=== PATIENT | male | born 1935 | race Caucasian/White ===

== ENCOUNTER → 2016-12-06 | Outpatient (CLI) | payer MEDICARE, BC ==
[2016-12-06 21:38] LABS: Hemoglobin A1C 7.1 % (4.2-6.1)
== END | disposition home or self-care (01) ==
LOC: MMGSC 12:18
PROVIDERS: ATTEND Family Medicine
DX: E11.9 Type 2 diabetes mellitus without complications (principal)
CPT/HCPCS: 36415; 83036

== ENCOUNTER → 2017-03-07 | Outpatient (CLI) | payer MEDICARE, BC ==
[2017-03-07 18:44] LABS: Basophils # (A) 0.1 k/uL (0-0.2); Basophils % (A) 1 %; CH 29.4; CHCM 31.7; Eosinophils # (A) 0.2 k/uL (0-0.7); Eosinophils % (A) 2 %; HDW 2.56; Hypochromasia Slight; Luc # (Auto) 0.18; Luc % (Auto) 2; Lymphocytes # (A) 2.1 k/uL (1.0-4.8); Lymphocytes % (A) 19 %; MCH 29.5 pg (25.0-35.0); MCHC 31.6 g/dL (31.0-37.0); MCV 93.3 fL (80.0-100.0); Mean Platelet Volume 7.3; Monocytes # (A) 0.6 k/uL (0-1.0); Monocytes % (A) 6 %; Neutrophils # (A) 7.8 k/uL (1.3-7.7); Neutrophils % (A) 71 %; RDW 13.4 % (11.5-15.5); WBC (Perox) 10.01
[2017-03-07 19:00] LABS: ALT 27 U/L (21-72); AST 19 U/L (17-59); Alkaline Phosphatase 103 U/L (38-126); Anion Gap 12 mmol/L; Blood Urea Nitrogen 23 mg/dL (9-20); Calcium 9.5 mg/dL (8.4-10.2); Carbon Dioxide 25 mmol/L (22-30); Chloride 103 mmol/L (98-107); Cholesterol 115 mg/dL (<200); Glucose 128 mg/dL (74-99); HDL Cholesterol 42 mg/dL (40-60); Non-African American GFR(MDRD) 53 (>60 ml/min/1.73 sqM); Potassium 5.2 mmol/L (3.5-5.1); Sodium 140 mmol/L (137-145); Total Bilirubin 0.5 mg/dL (0.2-1.3); Total Protein 7.2 g/dL (6.3-8.2); Triglycerides 57 mg/dL (<150)
[2017-03-07 20:47] LABS: Hemoglobin A1C 6.7 % (4.2-6.1)
== END | disposition home or self-care (01) ==
LOC: MMGSC 10:47
PROVIDERS: ATTEND Family Medicine
DX: E11.9 Type 2 diabetes mellitus without complications (principal); I10 Essential (primary) hypertension; E78.5 Hyperlipidemia, unspecified; N40.0 Benign prostatic hyperplasia without lower urinary tract symptoms; N52.9 Male erectile dysfunction, unspecified
CPT/HCPCS: 84439; 80061; 80053; 83036; 84443; 85025; 82043; 36415; G0103

== ENCOUNTER → 2017-04-08 | Outpatient (CLI) | payer MEDICARE, BC ==
[2017-04-08 20:44] LABS: Basophils # (A) 0.1 k/uL (0-0.2); Basophils % (A) 0 %; CH 29.9; CHCM 31.2; Eosinophils # (A) 0.1 k/uL (0-0.7); Eosinophils % (A) 1 %; HCT 40.4 % (39.0-53.0); HGB 12.5 gm/dL (13.0-17.5); Hypochromasia Slight; Luc # (Auto) 0.13; Luc % (Auto) 1; Lymphocytes # (A) 1.9 k/uL (1.0-4.8); Lymphocytes % (A) 15 %; MCH 29.7 pg (25.0-35.0); MCHC 30.9 g/dL (31.0-37.0); MCV 96.1 fL (80.0-100.0); Mean Platelet Volume 7.7; Monocytes # (A) 0.7 k/uL (0-1.0); Monocytes % (A) 6 %; Neutrophils # (A) 9.7 k/uL (1.3-7.7); Neutrophils % (A) 77 %; RBC 4.21 m/uL (4.30-5.90); RDW 13.7 % (11.5-15.5); WBC 12.6 k/uL (3.8-10.6); WBC (Perox) 12.96
== END ==
LOC: MMGSC 11:27
PROVIDERS: ATTEND Family Medicine
DX: D72.829 Elevated white blood cell count, unspecified (principal)
CPT/HCPCS: 36415; 85025

== ENCOUNTER → 2017-04-15 | Outpatient (CLI) | payer MEDICARE, BC | LOC: MMGSC 11:16 | PROVIDERS: ATTEND Family Medicine | DX: R31.9 Hematuria, unspecified (principal) | CPT/HCPCS: 87086 ==

== ENCOUNTER 2017-04-17 11:37 | Inpatient (IN) | payer MEDICARE, BC ==
[2017-04-17] MEDS ORDERED: NITROGLYCERIN SL TABS 0.4 MG TAB SUBLINGUAL PRN ×3 (11:59→21:16)
--- NOTE | 2017-04-17 12:02 | ED ---
Chest Pain HPI - General Chief Complaint: Chest Pain Stated Complaint: CHEST PAIN Time Seen by Provider: 04/17/17 11:50 Source: patient, family, RN notes reviewed Mode of arrival: ambulatory Limitations: no limitations - History of Present Illness Initial Comments: This is a 81-year-old male presents with complaints of chest discomfort today. Discomfort radiating down his arms up into his neck across his chest. Associated shortness of breath. Heaviness on and off for the past couple months. He currently states his pain is 8/10 in severity sharp and her team in nature. He was seen at [facility] 2 weeks ago for similar pain he was not admitted at that time. He does have a history of prior TIA abdominal aortic aneurysm he denies any prior history of heart attack/heart disease. He denies any cough fevers chills or sweats he is a very anxious person he did take Xanax this morning. MD Complaint: chest pain - Related Data Home Medications Medication Instructions Recorded Confirmed ALPRAZolam [Xanax] 0.25 mg PO BID PRN 10/30/14 04/17/17 Atorvastatin [Lipitor] 40 mg PO HS 10/30/14 04/17/17 Valsartan [Diovan] 160 mg PO DAILY 10/30/14 04/17/17 amLODIPine [Norvasc] 5 mg PO DAILY 10/30/14 04/17/17 glipiZIDE [Glucotrol] 5 mg PO DAILY 10/30/14 04/17/17 metFORMIN HCL 1,000 mg PO BID 10/30/14 04/17/17 Acetaminophen Tab [Tylenol] 500 mg PO Q6H PRN 04/17/17 04/17/17 Aspirin 325 mg PO DAILY PRN 04/17/17 04/17/17 Cyanocobalamin (Vitamin B-12) 1,000 mcg PO DAILY 04/17/17 04/17/17 [Vitamin B-12] Finasteride [Proscar] 5 mg PO DAILY 04/17/17 04/17/17 Hoda 1 cap PO DAILY 04/17/17 04/17/17 [place]-3 Fatty Acids/Fish Oil [Fish 1 cap PO DAILY 04/17/17 04/17/17 Oil 1,000 mg Capsule] Sulfamethox-Tmp 800-160Mg [Bactrim 1 tab PO Q12HR 04/17/17 04/17/17 DS 800-160 mg] Previous Rx's Medication Instructions Recorded Clopidogrel [Plavix] 75 mg PO DAILY #30 tablet 10/31/14 Allergies Allergy/AdvReac Type Severity Reaction Status Date / Time No Known Allergies Allergy Verified 04/17/17 12:18 Review of Systems ROS Statement: Those systems with pertinent positive or pertinent negative responses have been documented in the HPI. ROS Other: All systems not noted in ROS Statement are negative. EKG Findings - EKG Results: EKG: interpreted by ESTEFANIA, sinus rhythm (Sinus rhythm a rate of 76 W[place] interval 158 QRS duration 82 QT/QTC of 390/[address]-T wave configuration) Past Medical History Past Medical History: Coronary Artery Disease (CAD) Additional Past Medical History / Comment(s): AAA measuring 4.7 cm being followed by Dr. Mccarthy. Pt has been told to increase his water intake d/t blood work showing elevated renal levels. Pt. has diverticulitis and colon polyps History of Any Multi-Drug Resistant Organisms: None Reported Past Surgical History: Tonsillectomy Additional Past Surgical History / Comment(s): colonoscopy with polypectomy. Past Anesthesia/Blood Transfusion Reactions: No Reported Reaction Additional Past Anesthesia/Blood Transfusion Reaction / Comment(s): Pt has never recieved blood. Past Psychological History: Anxiety Smoking Status: Former smoker Past Alcohol Use History: None Reported Past Drug Use History: None Reported - Past Family History Father Family Medical History: Coronary Artery Disease (CAD), Diabetes Mellitus Additional Family Medical History / Comment(s): Father had caratid artery occlusion and had a procedure to remove. Father was an alcoholic. He of a ME at 76-77yrs. Mother Family Medical History: Deep Vein Thrombosis (DVT) Additional Family Medical History / Comment(s): Mother at 42 yrs of age of "blood clot" in the lung and it went to the heart. General Exam - General Exam Comments Initial Comments: This is a well-developed well-nourished awake alert anxious appearing male Limitations: no limitations General appearance: alert, anxious Head exam: Present: atraumatic, normocephalic, normal inspection Eye exam: Present: normal appearance, PERRL, EOMI. Absent: scleral icterus, conjunctival injection, periorbital swelling ENT exam: Present: normal exam, mucous membranes moist Neck exam: Present: normal inspection. Absent: tenderness, meningismus, lymphadenopathy Respiratory exam: Present: normal lung sounds bilaterally. Absent: respiratory distress, wheezes, rales, rhonchi, stridor Cardiovascular Exam: Present: regular rate, normal rhythm, normal heart sounds. Absent: systolic murmur, diastolic murmur, rubs, gallop, clicks GI/Abdominal exam: Present: soft, normal bowel sounds. Absent: distended, tenderness, guarding, rebound, rigid Extremities exam: Present: normal inspection, full ROM, normal capillary refill. Absent: tenderness, pedal edema, joint swelling, calf tenderness Back exam: Present: normal inspection Neurological exam: Present: alert, oriented X3, CN II-XII intact Psychiatric exam: Present: normal affect, normal mood Skin exam: Present: warm, dry, intact, normal color. Absent: rash Course Vital Signs 04/17/17 04/17/17 04/17/17 11:39 12:09 12:15 Temperature 98.2 F Pulse Rate 82 77 72 Respiratory 20 20 20 Rate Blood Pressure 136/81 156/81 154/75 O2 Sat by Pulse 98 99 99 Oximetry 04/17/17 13:14 Temperature Pulse Rate 79 Respiratory 18 Rate Blood Pressure 118/72 O2 Sat by Pulse 95 Oximetry - Reevaluation(s) Reevaluation #1: 04/17/17 14:22 Reevaluation patient reveals he does feel improved. Chest Pain MDM - MDM Review the x-ray shows no acute findings. I did discuss the findings with the patient and family members as well as Dr. Jonas who did come to see the patient emergency department. He will be admitted for evaluation of non-ST elevation ME with elevated troponin he'll does demonstrate renal insufficiency and hypomagnesemia. Critical Care Time Critical Care Time: Yes Critical Care Time: 32 minutes of critical care time which includes initial monitoring of the patient with history physical labs and x-rays reevaluation the patient's replication. Discussed with the patient family members discussion with the admitting physician admit orders and documentation of the above Disposition Clinical Impression: Non-ST elevation myocardial infarction (NSTEMI), Hypomagnesemia syndrome, Renal insufficiency syndrome, Chest pain Disposition: ADMITTED IP TO THIS [facility] Condition: Stable Referrals: Debora Torres MD [Primary Care Provider] - 1-2 days
[2017-04-17 12:25] LABS: Basophils % (A) 0 %; CHCM 32.9; Eosinophils % (A) 0 %; HDW 2.45; HGB 13.4 gm/dL (13.0-17.5); Luc # (Auto) 0.18; Luc % (Auto) 1; Lymphocytes # (A) 0.8 k/uL (1.0-4.8); Lymphocytes % (A) 5 %; MCH 31.5 pg (25.0-35.0); MCHC 34.4 g/dL (31.0-37.0); MCV 91.5 fL (80.0-100.0); Mean Platelet Volume 6.6; Monocytes # (A) 0.7 k/uL (0-1.0); Monocytes % (A) 4 %; Neutrophils # (A) 14.5 k/uL (1.3-7.7); Neutrophils % (A) 89 %; RBC 4.26 m/uL (4.30-5.90); RDW 13.4 % (11.5-15.5); WBC 16.3 k/uL (3.8-10.6); WBC (Perox) 15.94
[2017-04-17 12:35] LABS: Calcium 9.9 mg/dL (8.4-10.2); Magnesium 1.4 mg/dL (1.6-2.3); Total Bilirubin 0.7 mg/dL (0.2-1.3); Total Protein 7.3 g/dL (6.3-8.2)
--- NOTE | 2017-04-17 12:47 | XR ---
EXAMINATION TYPE: XR chest 2V DATE OF EXAM: 04/17/2017 COMPARISON: NONE HISTORY: Chest pain TECHNIQUE: Frontal and lateral views of the chest are obtained. FINDINGS: There is no focal air space opacity, pleural effusion, or pneumothorax seen. The cardiac silhouette size is within normal limits. There are overlying cardiac leads. The osseous structures a re intact. IMPRESSION: No acute cardiopulmonary process.
[2017-04-17 12:57] LABS: Partial Thromboplastin Time 23.9 sec (22.0-30.0); Prothrombin Time 10.3 sec (9.0-12.0)
[2017-04-17 13:15] LABS: Troponin I 0.443 ng/mL (0.000-0.034)
[2017-04-17 13:53] LABS: Glucose,Whole Blood 149 mg/dL (75-99)
[2017-04-17] MEDS ORDERED: HEPARIN SODIUM,PORCINE 5,000 UNIT/ML 1 ML VIAL IV ONE (14:24)
[2017-04-17] MEDS ORDERED: ACETAMINOPHEN TAB 500 MG TAB PO PRN (14:27)
[2017-04-17] MEDS ORDERED: HEPARIN SODIUM,PORCINE/D5W PMX 25,000 UNIT in DEXTROSE/WATER 1 500ML.BAG IV SCH (14:30)
[2017-04-17] MEDS: SODIUM CHLORIDE 0.9% 1,000 ML IV SCH ×2 (15:39→23:37)
[2017-04-17] MEDS: INSULIN LISPRO (humaLOG) 300 UNIT/3 ML VIAL SQ SCH ×2 (17:15→22:02)
[2017-04-17 17:16] LABS: Glucose,Whole Blood 188 mg/dL (75-99)
[2017-04-17 17:29] VITALS: BMI 25.0
[2017-04-17] MEDS ORDERED: metFORMIN 500 MG TAB PO SCH (17:30)
[2017-04-17] MEDS ORDERED: NITROGLYCERIN OINT 1 INCH/GM PACKET TOPICAL SCH (18:00)
[2017-04-17 18:27] LABS: Creatine Kinase MB 45.4 ng/mL (0.0-2.4)
[2017-04-17] MEDS ORDERED: SODIUM CHLORIDE 0.9% 250 ML IV ONE (19:52)
[2017-04-17] MEDS ORDERED: IV FLUID CONTINUATION 150 ML IV ONE (20:10)
[2017-04-17] MEDS ORDERED: LIDOCAINE 2% INJ 20 MG/ML (20 ML MDV) ONE (20:22)
[2017-04-17] MEDS ORDERED: MIDAZOLAM 2 MG/2 ML VIAL ONE (20:24)
[2017-04-17] MEDS ORDERED: MIDAZOLAM 2 MG/2 ML VIAL IV ONE (20:25)
[2017-04-17] MEDS ORDERED: LIDOCAINE 2% INJ 20 MG/ML SQ ONE (20:27)
[2017-04-17] MEDS ORDERED: BIVALIRUDIN 250 MG in SODIUM CHLORIDE 0.9% 50 ML IV ONE (20:40)
[2017-04-17] MEDS ORDERED: BIVALIRUDIN BOLUS 250 MG/50 ML IV ONE (20:40)
[2017-04-17] MEDS ORDERED: diphenhydrAMINE 50 MG/ML 1 ML VIAL ONE (20:42)
[2017-04-17] MEDS ORDERED: diphenhydrAMINE 50 MG/ML 1 ML VIAL IVP ONE (20:44)
[2017-04-17] MEDS ORDERED: ATORVASTATIN 40 MG TAB PO SCH (21:00)
[2017-04-17] MEDS ORDERED: NITROGLYCERIN 1000MCG/10ML SYRINGE INTRACORON ONE (21:04)
[2017-04-17] MEDS ORDERED: IODIXANOL 320 MG/ML 100 ML INTRAARTER ONE (21:08)
[2017-04-17] MEDS ORDERED: CLOPIDOGREL 75 MG TAB ONE (21:11)
[2017-04-17] MEDS ORDERED: ATROPINE SULFATE 0.1 MG/ML 10ML SYRINGE IV PRN (21:16)
[2017-04-17] MEDS ORDERED: MAG HYDROX/AL HYDROX/SIMETH 30 ML CUP PO PRN (21:16)
[2017-04-17] MEDS ORDERED: ZOLPIDEM 5 MG TAB PO PRN (21:16)
[2017-04-17] MEDS ORDERED: RX INFO: IV CONTRAST WAS GIVEN 1 EACH MISC MISCELLANE PRN (21:16)
[2017-04-17] MEDS ORDERED: CLOPIDOGREL 75 MG TAB PO ONE (21:17)
--- NOTE | 2017-04-17 21:20 | CC ---
DATE OF SERVICE: INDICATION: Non-ST segment elevation CO. PROCEDURE NOTE: After obtaining informed consent, left heart catheterization and coronary angiogram are performed via the right femoral artery using standard Mirian catheters. Conscious sedation was obtained. Total sedation time was 15 minutes. Patient has chronic renal insufficiency with a creatinine of 1.7. The patient received a bolus of 250 mL of 0.9 normal saline and we will continue to hydrate him. The patient came to hospital through this afternoon with chest pain and ruled in for myocardial infarction. His troponin came back elevated at around 24. The patient continued to have episodes of chest pressure with bilateral arm pain. Due to his chest discomfort elevated troponins, I advised the patient to undergo cardiac catheterization. He was explained of the risk of contrast-induced nephropathy, understood and accepted. FINDINGS: HEMODYNAMICS: Ventricular end-diastolic pressure was 8 to 12 mm. There is no significant gradient across this valve. LEFT VENTRICULOGRAM: Left ventriculogram was not performed. ANGIOGRAPHIC DATA: LEFT MAIN CORONARY ARTERY: Left main coronary is a normal sized vessel and is free of stenosis. Divides into left anterior descending coronary artery and circumflex coronary artery. LEFT ANTERIOR DESCENDING CORONARY ARTERY: LAD and its branches are free of significant stenosis. CIRCUMFLEX CORONARY ARTERY: Circumflex coronary artery is a nondominant vessel and gives off a large-caliber OM branch that has focal 95% stenosis with a filling defect. RIGHT CORONARY ARTERY: Right coronary artery is a large dominant vessel and is free of significant stenosis. There is a mild atherosclerotic plaque in the distal RCA just as it bifurcates into PDA and PLV. CONCLUSION: 95% stenosis involving the first OM branch. PLAN: Patient will undergo angioplasty of circumflex coronary artery by Dr. Temo Marie, the on-call cleaner furniture.
--- NOTE | 2017-04-17 21:23 | CONS ---
DATE OF CONSULTATION: 04/17/2017 CHIEF COMPLAINT: Chest pain Jasmina is a 81-year-old gentleman with history of hypertension, diabetes, and dyslipidemia who has had a cerebrovascular accident 2 years ago, comes to hospital complaining of precordial chest pain. He describes it as a chest pressure, moderate intensity at rest that radiated to left arm. It was not associated with diaphoresis and it was not related to exertion. He came in and got admitted. EKG did not reveal acute ischemic changes. Cardiac enzymes came back elevated following which I was called to see the patient. Patient continued to have on and off episodes of precordial chest pressure with left arm discomfort. Patient was at [facility] 2 weeks ago, but left AGAINST MEDICAL ADVICE. Past medical history is significant for diabetes, dyslipidemia, cerebrovascular accident. Medications are as charted. FAMILY HISTORY: Significant for coronary artery disease and valvular heart disease in his brother. SOCIAL HISTORY: Negative for current smoking, ETOH abuse, or drug abuse. REVIEW OF SYSTEMS: HEENT: Unremarkable. CARDIAC: As described above. RESPIRATORY: Negative. GI: Negative. GENITOURINARY: Negative. Allergy/immunology: Negative. SKIN: Negative. MUSCULOSKELETAL: Negative. Dermatology: Negative. CONSTITUTIONAL: Negative. Oncological: Negative. The rest of the system review is not relevant. On exam, comfortable at rest. Vital signs are stable. There is no jugular venous distention. Carotid upstroke is normal. There is no bruit. Chest exam reveals good air entry bilaterally. Heart exam reveals first and second heart sounds. No gallop. ABDOMEN: Soft. Exam of the extremities did not reveal any edema. Peripheral pulses are palpable. Labs have been reviewed. Hemoglobin is 15.4. Creatinine is 1.7. Potassium is 5, troponin was 0.4 on presentation, it went up to 23. Chest x-ray has been reviewed and EKGs have been reviewed. I reviewed the records from [facility]. ASSESSMENT: 1. Acute non- ST segment elevation myocardial infarction. 2. Chronic renal insufficiency. PLAN: Patient will undergo emergent cardiac catheterization with a view to performing angioplasty. The patient understands the risk of contrast-induced nephropathy. We will use at little dye as we can and hydrate him and cautiously.
[2017-04-17] MEDS ORDERED: SODIUM CHLORIDE 0.9% 1,000 ML IV ONE (21:29)
[2017-04-17] MEDS ORDERED: HYDROmorphone 2 MG/ML 1 ML SYRINGE IV ONE (21:30)
[2017-04-17] MEDS ORDERED: HYDROmorphone 2 MG/ML 1 ML SYRINGE ONE (21:30)
[2017-04-17 21:56] LABS: Glucose,Whole Blood 137 mg/dL (75-99)
[2017-04-17] MEDS: MAGNESIUM SULFATE-D5W PMX 1 GM in DEXTROSE/WATER 1 100ML.BAG IVPB SCH ×2 (22:08→23:37)
[2017-04-17] MEDS: SULFAMETHOX-TMP 800-160MG 1 EACH TAB PO SCH (22:08)
[2017-04-18 00:27] LABS: Creatine Kinase MB 62.2 ng/mL (0.0-2.4); Troponin I 70.9 ng/mL (0.000-0.034)
[2017-04-18 05:53] LABS: Basophils % (A) 0 %; CH 29.5; CHCM 31.8; Eosinophils # (A) 0.1 k/uL (0-0.7); Eosinophils % (A) 1 %; HGB 11.4 gm/dL (13.0-17.5); Luc # (Auto) 0.27; Luc % (Auto) 3; Lymphocytes # (A) 1.5 k/uL (1.0-4.8); Lymphocytes % (A) 14 %; MCH 31.3 pg (25.0-35.0); MCHC 33.6 g/dL (31.0-37.0); MCV 93.1 fL (80.0-100.0); Mean Platelet Volume 6.7; Monocytes # (A) 0.6 k/uL (0-1.0); Monocytes % (A) 5 %; Neutrophils # (A) 8.3 k/uL (1.3-7.7); Neutrophils % (A) 77 %; RBC 3.65 m/uL (4.30-5.90); RDW 13.3 % (11.5-15.5); WBC 10.7 k/uL (3.8-10.6)
[2017-04-18 06:08] LABS: Calcium 9.1 mg/dL (8.4-10.2); Magnesium 1.9 mg/dL (1.6-2.3); Potassium 4.7 mmol/L (3.5-5.1)
[2017-04-18 06:18] LABS: Glucose,Whole Blood 147 mg/dL (75-99)
[2017-04-18] MEDS: INSULIN LISPRO (humaLOG) 300 UNIT/3 ML VIAL SQ SCH ×4 (06:58→20:41)
[2017-04-18] MEDS: glipiZIDE 5 MG TAB PO SCH (08:26)
[2017-04-18] MEDS: METOPROLOL TARTRATE 25 MG TAB PO SCH ×2 (08:26→20:42)
[2017-04-18] MEDS: FINASTERIDE 5 MG TAB PO SCH ×2 (08:26→12:18)
[2017-04-18] MEDS: ASPIRIN 81 MG CHEW PO SCH (08:27)
[2017-04-18] MEDS: CLOPIDOGREL 75 MG TAB PO SCH (08:27)
[2017-04-18] MEDS: SULFAMETHOX-TMP 800-160MG 1 EACH TAB PO SCH ×2 (08:27→20:43)
[2017-04-18] MEDS: ALPRAZolam 0.25 MG TAB PO PRN (08:33)
[2017-04-18] MEDS ORDERED: ASPIRIN 325 MG TAB PO SCH (09:00)
[2017-04-18] MEDS ORDERED: amLODIPine 5 MG TAB PO SCH (09:00)
[2017-04-18] MEDS ORDERED: NON-FORMULARY DRUG (Omega-3 Fatty Acids/Fish Oil [Fish Oil 1,000 Mg Capsule] 1 CAP) PO SCH (09:00)
--- NOTE | 2017-04-18 11:30 | PTCA ---
DATE OF SERVICE: 04/17/2017 PROCEDURE: PTCA and stenting of proximal first obtuse marginal branch of circumflex. PERFORMED BY: Dr. Temo Marie. CLINICAL INFORMATION: Mr. Jasmina Butler is a 81-year-old gentleman with history of hypertension, hypercholesterolemia, type 2 diabetes with chronic kidney disease. His creatinine runs in the range of 1.75. He came into the hospital with symptoms of chest discomfort and went on to have a troponin elevation with ongoing nondescript chest tightness and pressure. He was seen and evaluated by Dr. Flores who performed cardiac catheterization which revealed a 95% proximal first circumflex marginal coronary artery. This was a nondominant circumflex. He has a large RCA, which was free of significant disease and the LAD system also did not have significant disease. He was advised intervention that was performed in the same setting. PROCEDURE NOTE: The existing 6 Russian introducer in the right femoral artery was used to perform the procedure. A JL4 guide catheter of 6 Russian caliber was used to cannulate the left coronary artery. A BMW wire with a steep curve was used to negotiate a very acute angle of takeoff of the obtuse marginal. The wire was kept distally. Predilatation was performed using a 3.0 caliber, 12 mm long Trek balloon. I then deployed a 3.0 caliber, 12 mm long Xience drug-eluting stent and deployed this at 12 atmospheres. Patient had an excellent angiographic result without evident complication. Proximal to the site of dilatation, there was a diffuse disease of about 40% starting from the ostium of the circumflex marginal. Beyond the occlusion, the circumflex marginal divided into 2 branches. The superior was a large-caliber, inferior was a smaller caliber, but both branches had very good flow. An excellent angiographic result without complication was achieved. Patient received 225 mg of Plavix and he was already on Plavix for a history of previous TIA or stroke but he missed a dose or so in the last day. The patient received Angiomax bolus and infusion as per protocol. The sheath was then taken out and Angio-Seal device used to secure hemostasis and he was sent to the room in stable condition. The patient received conscious sedation with a combination of Versed and Benadryl for a total duration of 30 minutes. Results were discussed with the patient's by telephone. Excellent angiographic result was achieved and a copy of this note will go to the PCP.
[2017-04-18 11:35] LABS: Hemoglobin A1C 6.4 % (4.2-6.1)
--- NOTE | 2017-04-18 11:35 | LTR ---
April 17, 2017 RIDGE FREIRE MD RE: Jasmina Butler Maria Alejandra Dear Dr. Garza: Thank you for the opportunity to participate in the care of Mr. Butler. I am pleased to report to you that he had an excellent angiographic result. He presented with chest pain, had a non-ST elevation VT. Excellent angiographic result was achieved with stenting of proximal first circumflex marginal branch. A drug-eluting stent was deployed. He should be on aspirin and Plavix without interruption for a total duration of one year. Thank you for your referral and please call for questions. With kindest regards. Sincerely yours, ANI MOSLEY MD
[2017-04-18 12:02] LABS: Glucose,Whole Blood 135 mg/dL (75-99)
[2017-04-18] MEDS: SODIUM CHLORIDE 0.9% 1,000 ML IV SCH (12:11)
[2017-04-18] MEDS: VALSARTAN 160 MG TAB PO SCH (12:12)
[2017-04-18] MEDS: CYANOCOBALAMIN 500 MCG TAB PO SCH (12:13)
[2017-04-18] MEDS ORDERED: SENNOSIDES 8.6 MG TAB PO PRN (12:36)
[2017-04-18] MEDS ORDERED: MAGNESIUM HYDROXIDE 2,400 MG/10 ML CUP PO PRN (12:36)
--- NOTE | 2017-04-18 14:04 | P.HPIM ---
History of Present Illness H&P Date: 04/17/17 Chief Complaint: NSTEMI This is a 81-year-old male one of Dr. Garza with a previous medical history significant for hypertension and hypertensive cardiovascular disease with left ventricular hypertrophy, diabetes mellitus type 2, a large prostate, patient developed to have significant chest pain associated with exertion with what appears to be an effort angina about 4-6 weeks prior to the admission and he has been getting on and off more chest pain. Patient stated that he was in his usual state of health about yesterday when he was working outside and developed to have a significant left-sided chest pain radiating to the neck associated with tightness in his neck with left arm numbness as well he ended up coming to the ER for evaluation had an EKG that showed nonspecific ST-T wave changes, patient was started on heparin drip as well as an aspirin and he was admitted to the hospital cardiology consultation was obtained, patient initial laboratory evaluation showed negative troponin however the second troponin came back quite elevated he was rotated non-ST elevation [place] patient was seen by Dr. Guzman and he was taken to the bobcat driver/labor underwent left heart catheterization that showed 95% stenosis of the obtuse marginal branch of the LCx, he underwent stenting of the artery by Dr. Marie and he was admitted to the hospital, he is be maintained on aspirin 81 mg once every day, Plavix 75 minute gram orally once every day, Lipitor 80 mg orally once every day. Review of Systems Constitutional: Denies chills, Denies chronic pain, Denies fever, Denies malaise , Denies weight gain, Denies weight loss Eyes: denies blurred vision, denies bulging eye, denies decreased vision, denies diplopia Ears, nose, mouth and throat: Denies dysphagia, Denies epistaxis, Denies neck lump, Denies sore throat Cardiovascular: Reports chest pain, Reports decreased exercise tolerance, Reports dyspnea on exertion, Reports high blood pressure, Reports shortness of breath, Denies rapid heart beat, Denies syncope Respiratory: Denies congestion, Denies cough, Denies cough with sputum, Denies home oxygen, Denies sleep apnea, Denies snoring, Denies wheezing Gastrointestinal: Denies abdominal pain, Denies bloating, Denies change in bowel habits, Denies heartburn, Denies melena, Denies nausea, Denies vomiting Genitourinary: Reports nocturia, Denies dysuria Musculoskeletal: Denies myalgias Musculoskeletal: absent: ankle pain, ankle stiffness, ankle swelling, elbow pain , elbow stiffness, elbow swelling, foot pain, foot stiffness, foot swelling, hand pain, hand stiffness, hand swelling, hip pain, hip stiffness, hip swelling , knee pain, knee stiffness, knee swelling, shoulder pain, shoulder stiffness, shoulder swelling, wrist pain, wrist stiffness, wrist swelling Integumentary: Denies pruritus, Denies rash Neurological: Denies numbness, Denies weakness Psychiatric: Denies anxiety, Denies depression Endocrine: Denies fatigue, Denies weight change Past Medical History Past Medical History: Coronary Artery Disease (CAD), Diabetes Mellitus, GERD/ Reflux, Hyperlipidemia, Hypertension, Musculoskeletal Disorder, Osteoarthritis ( OA), Prostate Disorder, Vascular Disorder Additional Past Medical History / Comment(s): AAA followed by Dr. Mccarthy. Pt. has diverticulitis and colon polyps History of Any Multi-Drug Resistant Organisms: None Reported Past Surgical History: Adenoidectomy, Tonsillectomy Additional Past Surgical History / Comment(s): colonoscopy with polypectomy, basal cell cancer removed from the shoulder. Past Anesthesia/Blood Transfusion Reactions: No Reported Reaction Additional Past Anesthesia/Blood Transfusion Reaction / Comment(s): Pt has never recieved blood. Past Psychological History: Anxiety Additional Psychological History / Comment(s): Pt lives in his home with his spouse of 60 yrs. Pt is independent. Pt drives a car. Smoking Status: Former smoker (Patient is a smoker about pack every day he smoked until 1986 when he quit, he used to drink about 12 beers on a daily basis and he has not had any beers since and 9 however he does martini once every day. About 3 ounces of alcohol.) Past Alcohol Use History: None Reported Past Drug Use History: None Reported - Past Family History Father Family Medical History: Coronary Artery Disease (CAD) (Father at age 79 from SD he also was alcoholic and he had history of diabetes), Diabetes Mellitus Additional Family Medical History / Comment(s): Father had carotid artery occlusion and had a procedure to remove. Father was an alcoholic. He of a SD at 76-77yrs. Mother Family Medical History: Deep Vein Thrombosis (DVT), Pulmonary Embolus (Mother at age 42 from pulmonary embolism and cor pulmonale.) Additional Family Medical History / Comment(s): Mother at 42 yrs of age of "blood clot" in the lung and it went to the heart. Brother(s) Family Medical History: No Reported History (Patient has one brother who had AVR.) Sister(s) Family Medical History: No Reported History (Patient has one sister major medical problems.) Son(s) Family Medical History: No Reported History (He shouldn't has 3 sons no major medical problems.) Medications and Allergies Home Medications Medication Instructions Recorded Confirmed Type ALPRAZolam [Xanax] 0.25 mg PO BID PRN 10/30/14 04/17/17 History Atorvastatin [Lipitor] 40 mg PO HS 10/30/14 04/17/17 History Valsartan [Diovan] 160 mg PO DAILY 10/30/14 04/17/17 History amLODIPine [Norvasc] 5 mg PO DAILY 10/30/14 04/17/17 History glipiZIDE [Glucotrol] 5 mg PO DAILY 10/30/14 04/17/17 History metFORMIN HCL 1,000 mg PO BID 10/30/14 04/17/17 History Acetaminophen Tab [Tylenol] 500 mg PO Q6H PRN 04/17/17 04/17/17 History Aspirin 325 mg PO DAILY PRN 04/17/17 04/17/17 History Cyanocobalamin (Vitamin B-12) 1,000 mcg PO DAILY 04/17/17 04/17/17 History [Vitamin B-12] Finasteride [Proscar] 5 mg PO DAILY 04/17/17 04/17/17 History Hoda 1 cap PO DAILY 04/17/17 04/17/17 History [place]-3 Fatty Acids/Fish Oil [Fish 1 cap PO DAILY 04/17/17 04/17/17 History Oil 1,000 mg Capsule] Sulfamethox-Tmp 800-160Mg [Bactrim 1 tab PO Q12HR 04/17/17 04/17/17 History DS 800-160 mg] Allergies Allergy/AdvReac Type Severity Reaction Status Date / Time No Known Allergies Allergy Verified 04/17/17 12:18 Physical Exam Vitals: Vital Signs Temp Pulse Pulse Resp BP BP Pulse Ox 04/18/17 08:00 97.6 F 77 20 107/71 95 04/18/17 04:00 97.3 F L 78 16 123/78 97 04/18/17 01:01 75 16 139/84 96 04/18/17 00:01 79 16 141/72 95 04/18/17 00:00 97.3 F L 79 16 141/72 95 04/17/17 23:01 84 16 139/88 96 04/17/17 22:31 97.3 F L 85 16 136/82 96 04/17/17 22:01 97.3 F L 81 16 145/93 95 04/17/17 21:46 97.3 F L 75 16 146/93 97 04/17/17 21:15 97.3 F L 16 157/98 97 04/17/17 20:00 97.3 F L 85 16 157/98 97 04/17/17 15:40 96.7 F L 57 L 18 157/79 97 04/17/17 14:58 97.1 F L 78 18 138/83 97 04/17/17 13:14 79 18 118/72 95 04/17/17 12:15 72 20 154/75 99 04/17/17 12:09 77 20 156/81 99 04/17/17 11:39 98.2 F 82 20 136/81 98 Intake and Output 04/17/17 04/18/17 04/18/17 22:59 06:59 14:59 Intake Total 887.993 700 120 Output Total 1225 1025 Balance -337.007 -325 120 Intake: IV 636.76 700 Heparin Sodium,Porcine/ 36 D5w Pmx 25,000 unit In Dextrose/Water 1 500ml. bag @ 12 UNITS/KG/HR 18.5 mls/hr IV .Q24H [facility] Rx#: [id number] Magnesium Sulfate-D5w Pmx 100 100 1 gm In Dextrose/Water 1 100ml.bag @ 100 mls/hr IVPB Q1H [facility] Rx#: [id number] Sodium Chloride 0.9% 1, 40 000 ml @ 20 mls/hr IV . Q24H [facility] Rx#:[id number] Sodium Chloride 0.9% 1, 75 600 000 ml @ 75 mls/hr IV . [id number] [facility] Rx#:[id number] Sodium Chloride 0.9% 250 250 ml @ 999 mls/hr IV .Q16M [facility] Rx#:[id number] Intake, IV Titration 1.233 Amount Heparin Sodium,Porcine/ 1.233 D5w Pmx 25,000 unit In Dextrose/Water 1 500ml. bag @ 12 UNITS/KG/HR 18.5 mls/hr IV .Q24H [facility] Rx#: [id number] Oral 250 120 Output: Urine 1225 1025 Other: Voiding Method Urinal Urinal # Voids 1 1 Weight 79.2 kg - Constitutional General appearance: no acute distress - EENT Eyes: anicteric sclerae, EOMI, PERRLA, no ptosis, no scleral icterus, normal appearance ENT: hearing grossly normal, NA/AT, normal oropharynx, no thrush Ears: bilateral: normal - Neck Neck: no lymphadenopathy, normal ROM, no rigidity, no stridor, no thyromegaly Carotids: bilateral: upstroke normal Thyroid: bilateral: normal size - Respiratory Respiratory: bilateral: diminished, negative: dullness, rales, rhonchi, wheezing , prolonged expiration, prolonged inspiration - Cardiovascular Rhythm: regular Heart sounds: normal: S1, S2 Abnormal Heart Sounds: systolic murmur, no rub, S3 Gallop, no click - Gastrointestinal General gastrointestinal: normal bowel sounds, soft, no splenomegaly, no tenderness, no umbilical hernia, no ventral hernia - Integumentary Integumentary: normal, normal turgor - Neurologic Neurologic: CNII-XII intact - Musculoskeletal Musculoskeletal: strength equal bilaterally - Psychiatric Psychiatric: A&O x's 3, appropriate affect, intact judgment & insight Results CBC & Chem 7: 04/18/17 05:22 04/18/17 05:22 Labs: Abnormal Lab Results - Last 24 Hours (Table) 04/17/17 04/17/17 04/17/17 Range/Units 11:57 11:57 11:57 WBC 16.3 H (3.8-10.6) k/uL RBC 4.26 L (4.30-5.90) m/uL Hgb (13.0-17.5) gm/dL Hct (39.0-53.0) % Neutrophils # 14.5 H (1.3-7.7) k/uL Lymphocytes # 0.8 L (1.0-4.8) k/uL APTT (22.0-30.0) sec Sodium 135 L (137-145) mmol/L Carbon Dioxide 20 L (22-30) mmol/L BUN 25 H (9-20) mg/dL Creatinine 1.74 H (0.66-1.25) mg/dL Glucose 169 H (74-99) mg/dL POC Glucose (mg/dL) (75-99) mg/dL Magnesium 1.4 L (1.6-2.3) mg/dL Total Creatine Kinase 189 H (55-170) U/L CK-MB (CK-2) 5.0 H* (0.0-2.4) ng/mL Troponin I 0.443 H* (0.000-0.034) ng/mL 04/17/17 04/17/17 04/17/17 Range/Units 13:52 17:04 17:23 WBC (3.8-10.6) k/uL RBC (4.30-5.90) m/uL Hgb (13.0-17.5) gm/dL Hct (39.0-53.0) % Neutrophils # (1.3-7.7) k/uL Lymphocytes # (1.0-4.8) k/uL APTT (22.0-30.0) sec Sodium (137-145) mmol/L Carbon Dioxide (22-30) mmol/L BUN (9-20) mg/dL Creatinine (0.66-1.25) mg/dL Glucose (74-99) mg/dL POC Glucose (mg/dL) 149 H 188 H (75-99) mg/dL Magnesium (1.6-2.3) mg/dL Total Creatine Kinase 740 H (55-170) U/L CK-MB (CK-2) 45.4 H* (0.0-2.4) ng/mL Troponin I 23.000 H* (0.000-0.034) ng/mL 04/17/17 04/17/17 04/17/17 Range/Units 21:54 23:30 23:30 WBC (3.8-10.6) k/uL RBC (4.30-5.90) m/uL Hgb (13.0-17.5) gm/dL Hct (39.0-53.0) % Neutrophils # (1.3-7.7) k/uL Lymphocytes # (1.0-4.8) k/uL APTT 51.6 H (22.0-30.0) sec Sodium (137-145) mmol/L Carbon Dioxide (22-30) mmol/L BUN (9-20) mg/dL Creatinine (0.66-1.25) mg/dL Glucose (74-99) mg/dL POC Glucose (mg/dL) 137 H (75-99) mg/dL Magnesium (1.6-2.3) mg/dL Total Creatine Kinase 887 H (55-170) U/L CK-MB (CK-2) 62.2 H* (0.0-2.4) ng/mL Troponin I 70.900 H* (0.000-0.034) ng/mL 04/18/17 04/18/17 04/18/17 Range/Units 05:22 05:22 06:17 WBC 10.7 H (3.8-10.6) k/uL RBC 3.65 L (4.30-5.90) m/uL Hgb 11.4 L (13.0-17.5) gm/dL Hct 34.0 L (39.0-53.0) % Neutrophils # 8.3 H (1.3-7.7) k/uL Lymphocytes # (1.0-4.8) k/uL APTT (22.0-30.0) sec Sodium 132 L (137-145) mmol/L Carbon Dioxide (22-30) mmol/L BUN (9-20) mg/dL Creatinine 1.40 H (0.66-1.25) mg/dL Glucose 136 H (74-99) mg/dL POC Glucose (mg/dL) 147 H (75-99) mg/dL Magnesium (1.6-2.3) mg/dL Total Creatine Kinase (55-170) U/L CK-MB (CK-2) (0.0-2.4) ng/mL Troponin I (0.000-0.034) ng/mL Thrombosis Risk Factor Assmnt - DVT/VTE Prophylaxis DVT/VTE Prophylaxis: Pharmacologic Prophylaxis ordered, Mechanical Prophylaxis ordered - Choose All That Apply Each Risk Factor Represents 3 Points: Age 75 years or older, Family history of DVT/PE Thrombosis Risk Factor Assessment Total Risk Factor Score: 6 Thrombosis Risk Factor Assessment Level: High Risk Assessment and Plan Plan: Assessment and plan: 1. Non-ST elevation [place] post left heart catheterization and PCI of the OM1 off the LCx. Continue aspirin 81 mg once every day, continue Plavix 75 mg orally once every day, continue Lipitor 80 mg orally once every day, metoprolol 25 mg orally twice every day, echogram will be obtained, increase activity, monitor the patient's electrolytes and magnesium in the next 24 hours. 2. Hypertension and hypertensive cardio vascular disease. Continue patient on metoprolol 25 mg orally twice every day, amlodipine 5 mg orally once every day. 3. Hyperlipidemia. Continue patient on Lipitor 80 mg orally once every day. Lipid panel will be done. 4. Diabetes mellitus type 2. Continue patient on consistent carbohydrate diet 1800-calorie continue patient on glipizide 5 minute gram orally once every day, continue statin scale insulin, BGM before each meal and at bedtime. 5. Enlarged prostate. Monitor the patient very closely for urinary retention. Continue patient on finasteride 5 mg orally once every day. 6. Reported history of hematuria. Continue Bactrim double strength 1 tablet twice every day, follow-up with urology as an outpatient. 7. Acute kidney injury and top of chronic kidney disease. Continue IV fluid resuscitation, monitor the patient CMP magnesium and phosphorus in the next 24 hours. 8. DVT prophylaxis. Lovenox 40 mg subcutaneously every 24 hours. 9. GI prophylaxis. Continue PPI. 10. Admitted to inpatient. Estimate a length of stay 2 midnights. 11. Patient is full code.
--- NOTE | 2017-04-18 14:05 | P.PN ---
Subjective This is a 81-year-old male one of Dr. Garza with a previous medical history significant for hypertension and hypertensive cardiovascular disease with left ventricular hypertrophy, diabetes mellitus type 2, a large prostate, patient developed to have significant chest pain associated with exertion with what appears to be an effort angina about 4-6 weeks prior to the admission and he has been getting on and off more chest pain. Patient stated that he was in his usual state of health about yesterday when he was working outside and developed to have a significant left-sided chest pain radiating to the neck associated with tightness in his neck with left arm numbness as well he ended up coming to the ER for evaluation had an EKG that showed nonspecific ST-T wave changes, patient was started on heparin drip as well as an aspirin and he was admitted to the hospital cardiology consultation was obtained, patient initial laboratory evaluation showed negative troponin however the second troponin came back quite elevated he was rotated non-ST elevation [place] patient was seen by Dr. Guzman and he was taken to the parking lot laborer underwent left heart catheterization that showed 95% stenosis of the obtuse marginal branch of the LCx, he underwent stenting of the artery by Dr. Marie and he was admitted to the hospital, he is be maintained on aspirin 81 mg once every day, Plavix 75 minute gram orally once every day, Lipitor 80 mg orally once every day. 04/18/2017: Patient is feeling a lot better today and he has a chest pain, shortness of breath, he denies any abdominal pain, nausea, he does complain of consultation for which she gets 2 Senokot and milk of magnesia, patient has not had any urinary retention, he did receive his Bactrim double strength twice every day. Was no evidence of any hematuria. Objective - Vital Signs Vital signs: Vital Signs Temp 97.6 F 04/18/17 08:00 Pulse 77 04/18/17 08:00 Resp 20 04/18/17 08:00 BP 107/71 04/18/17 08:00 Pulse Ox 95 04/18/17 08:00 Intake & Output 04/17/17 04/18/17 04/18/17 18:59 06:59 18:59 Intake Total 871.424 3470.76 120 Output Total 600 1650 Balance -272.767 -389.24 120 Weight 79.2 kg Intake: IV 76 1260.76 Heparin Sodium,Porcine/ 36 D5w Pmx 25,000 unit In Dextrose/Water 1 500ml. bag @ 12 UNITS/KG/HR 18.5 mls/hr IV .Q24H [facility] Rx#: [id number] Magnesium Sulfate-D5w Pmx 200 1 gm In Dextrose/Water 1 100ml.bag @ 100 mls/hr IVPB Q1H [facility] Rx#: [id number] Sodium Chloride 0.9% 1, 40 000 ml @ 20 mls/hr IV . Q24H [facility] Rx#:[id number] Sodium Chloride 0.9% 1, 675 000 ml @ 75 mls/hr IV . [id number] [facility] Rx#:[id number] Sodium Chloride 0.9% 250 250 ml @ 999 mls/hr IV .Q16M [facility] Rx#:[id number] Intake, IV Titration 1.233 Amount Heparin Sodium,Porcine/ 1.233 D5w Pmx 25,000 unit In Dextrose/Water 1 500ml. bag @ 12 UNITS/KG/HR 18.5 mls/hr IV .Q24H [facility] Rx#: [id number] Oral 250 120 Output: Urine 600 1650 Other: Voiding Method Urinal # Voids 1 1 - Exam - Constitutional General appearance: no acute distress - EENT Eyes: anicteric sclerae, EOMI, PERRLA, no ptosis, no scleral icterus, normal appearance ENT: hearing grossly normal, NA/AT, normal oropharynx, no thrush Ears: bilateral: normal - Neck Neck: no lymphadenopathy, normal ROM, no rigidity, no stridor, no thyromegaly Carotids: bilateral: upstroke normal Thyroid: bilateral: normal size - Respiratory Respiratory: bilateral: diminished, negative: dullness, rales, rhonchi, wheezing , prolonged expiration, prolonged inspiration - Cardiovascular Rhythm: regular Heart sounds: normal: S1, S2 Abnormal Heart Sounds: systolic murmur, no rub, S3 Gallop, no click - Gastrointestinal General gastrointestinal: normal bowel sounds, soft, no splenomegaly, no tenderness, no umbilical hernia, no ventral hernia - Integumentary Integumentary: normal, normal turgor - Neurologic Neurologic: CNII-XII intact - Musculoskeletal Musculoskeletal: strength equal bilaterally - Psychiatric Psychiatric: A&O x's 3, appropriate affect, intact judgment & insight - Labs CBC & Chem 7: 04/18/17 05:22 04/18/17 05:22 Labs: Abnormal Lab Results - Last 24 Hours (Table) 04/17/17 04/17/17 04/17/17 Range/Units 11:57 11:57 11:57 WBC 16.3 H (3.8-10.6) k/uL RBC 4.26 L (4.30-5.90) m/uL Hgb (13.0-17.5) gm/dL Hct (39.0-53.0) % Neutrophils # 14.5 H (1.3-7.7) k/uL Lymphocytes # 0.8 L (1.0-4.8) k/uL APTT (22.0-30.0) sec Sodium 135 L (137-145) mmol/L Carbon Dioxide 20 L (22-30) mmol/L BUN 25 H (9-20) mg/dL Creatinine 1.74 H (0.66-1.25) mg/dL Glucose 169 H (74-99) mg/dL POC Glucose (mg/dL) (75-99) mg/dL Magnesium 1.4 L (1.6-2.3) mg/dL Total Creatine Kinase 189 H (55-170) U/L CK-MB (CK-2) 5.0 H* (0.0-2.4) ng/mL Troponin I 0.443 H* (0.000-0.034) ng/mL 04/17/17 04/17/17 04/17/17 Range/Units 13:52 17:04 17:23 WBC (3.8-10.6) k/uL RBC (4.30-5.90) m/uL Hgb (13.0-17.5) gm/dL Hct (39.0-53.0) % Neutrophils # (1.3-7.7) k/uL Lymphocytes # (1.0-4.8) k/uL APTT (22.0-30.0) sec Sodium (137-145) mmol/L Carbon Dioxide (22-30) mmol/L BUN (9-20) mg/dL Creatinine (0.66-1.25) mg/dL Glucose (74-99) mg/dL POC Glucose (mg/dL) 149 H 188 H (75-99) mg/dL Magnesium (1.6-2.3) mg/dL Total Creatine Kinase 740 H (55-170) U/L CK-MB (CK-2) 45.4 H* (0.0-2.4) ng/mL Troponin I 23.000 H* (0.000-0.034) ng/mL 04/17/17 04/17/17 04/17/17 Range/Units 21:54 23:30 23:30 WBC (3.8-10.6) k/uL RBC (4.30-5.90) m/uL Hgb (13.0-17.5) gm/dL Hct (39.0-53.0) % Neutrophils # (1.3-7.7) k/uL Lymphocytes # (1.0-4.8) k/uL APTT 51.6 H (22.0-30.0) sec Sodium (137-145) mmol/L Carbon Dioxide (22-30) mmol/L BUN (9-20) mg/dL Creatinine (0.66-1.25) mg/dL Glucose (74-99) mg/dL POC Glucose (mg/dL) 137 H (75-99) mg/dL Magnesium (1.6-2.3) mg/dL Total Creatine Kinase 887 H (55-170) U/L CK-MB (CK-2) 62.2 H* (0.0-2.4) ng/mL Troponin I 70.900 H* (0.000-0.034) ng/mL 04/18/17 04/18/17 04/18/17 Range/Units 05:22 05:22 06:17 WBC 10.7 H (3.8-10.6) k/uL RBC 3.65 L (4.30-5.90) m/uL Hgb 11.4 L (13.0-17.5) gm/dL Hct 34.0 L (39.0-53.0) % Neutrophils # 8.3 H (1.3-7.7) k/uL Lymphocytes # (1.0-4.8) k/uL APTT (22.0-30.0) sec Sodium 132 L (137-145) mmol/L Carbon Dioxide (22-30) mmol/L BUN (9-20) mg/dL Creatinine 1.40 H (0.66-1.25) mg/dL Glucose 136 H (74-99) mg/dL POC Glucose (mg/dL) 147 H (75-99) mg/dL Magnesium (1.6-2.3) mg/dL Total Creatine Kinase (55-170) U/L CK-MB (CK-2) (0.0-2.4) ng/mL Troponin I (0.000-0.034) ng/mL Assessment and Plan Plan: Assessment and plan: 1. Non-ST elevation [place] post left heart catheterization and PCI of the OM1 off the LCx. Continue aspirin 81 mg once every day, continue Plavix 75 mg orally once every day, continue Lipitor 80 mg orally once every day, metoprolol 25 mg orally twice every day, echogram will be obtained, increase activity, monitor the patient's electrolytes and magnesium in the next 24 hours. 2. Hypertension and hypertensive cardio vascular disease. Continue patient on metoprolol 25 mg orally twice every day, amlodipine 5 mg orally once every day. 3. Hyperlipidemia. Continue patient on Lipitor 80 mg orally once every day. Lipid panel will be done. 4. Diabetes mellitus type 2. Continue patient on consistent carbohydrate diet 1800-calorie continue patient on glipizide 5 minute gram orally once every day, continue statin scale insulin, BGM before each meal and at bedtime. 5. Enlarged prostate. Monitor the patient very closely for urinary retention. Continue patient on finasteride 5 mg orally once every day. 6. Reported history of hematuria. Continue Bactrim double strength 1 tablet twice every day, follow-up with urology as an outpatient. 7. Acute kidney injury and top of chronic kidney disease. Continue IV fluid resuscitation, monitor the patient CMP magnesium and phosphorus in the next 24 hours. 8. DVT prophylaxis. Lovenox 40 mg subcutaneously every 24 hours. 9. GI prophylaxis. Continue PPI. 10. Admitted to inpatient. Estimate a length of stay 2 midnights. 11. Patient is full code.
--- NOTE | 2017-04-18 16:25 | P.PN ---
Subjective Principal diagnosis: Non-STEMI This is a pleasant 81-year-old gentleman who presented to the hospital with a non-ST elevation myocardial infarction. He underwent angioplasty with stenting of the OM by Dr. Venkat Marie. Patient was seen and examined this morning, denies any chest pain or difficulty in breathing. Blood pressure this morning 104/60 with a heart rate in the 60s. 96% on room air EKG shows normal sinus rhythm with no changes from post-PCI. White blood cell count 10.7, hemoglobin 11.4, sodium 132, potassium 4.7, BUN 19, creatinine 1.4. Troponin up to 70.9. We will request an echocardiogram with Doppler study be performed. We'll check lytes BUN and creatinine in the morning. Plan for possible discharge home in 48 hours or so if stable. Objective - Vital Signs Vital signs: Vital Signs Temp 97.1 F L 04/18/17 15:12 Pulse 66 04/18/17 15:12 Resp 16 04/18/17 15:12 BP 103/64 04/18/17 15:12 Pulse Ox 96 04/18/17 15:12 Intake & Output 04/17/17 04/18/17 04/18/17 18:59 06:59 18:59 Intake Total 508.683 5383.76 840 Output Total 600 1650 200 Balance -272.767 -389.24 640 Weight 79.2 kg Intake: IV 76 1260.76 600 Heparin Sodium,Porcine/ 36 D5w Pmx 25,000 unit In Dextrose/Water 1 500ml. bag @ 12 UNITS/KG/HR 18.5 mls/hr IV .Q24H [facility] Rx#: [id number] Magnesium Sulfate-D5w Pmx 200 1 gm In Dextrose/Water 1 100ml.bag @ 100 mls/hr IVPB Q1H [facility] Rx#: [id number] Sodium Chloride 0.9% 1, 40 000 ml @ 20 mls/hr IV . Q24H [facility] Rx#:[id number] Sodium Chloride 0.9% 1, 675 600 000 ml @ 75 mls/hr IV . [id number] [facility] Rx#:[id number] Sodium Chloride 0.9% 250 250 ml @ 999 mls/hr IV .Q16M [facility] Rx#:[id number] Intake, IV Titration 1.233 Amount Heparin Sodium,Porcine/ 1.233 D5w Pmx 25,000 unit In Dextrose/Water 1 500ml. bag @ 12 UNITS/KG/HR 18.5 mls/hr IV .Q24H [facility] Rx#: [id number] Oral 250 240 Output: Urine 600 1650 200 Other: Voiding Method Urinal Urinal # Voids 1 1 # Bowel Movements 0 - Exam PHYSICAL EXAMINATION: HEENT: Head is atraumatic, normocephalic. Pupils equal, round. Neck is supple. There is no elevated jugular venous pressure. HEART EXAMINATION: Heart S1, S2 normal. No murmur or gallop heard. CHEST EXAMINATION: Lungs are clear to auscultation and precussion. No chest wall tenderness is noted on palpation or with deep breathing. ABDOMEN: Soft, nontender. Bowel sounds are heard. No organomegaly noted. Right groin soft, no evidence of any hematoma. EXTREMITIES: 2+ peripheral pulses with no evidence of peripheral edema and no calf tenderness noted. NEUROLOGIC patient is awake, alert and oriented -3. . - Labs CBC & Chem 7: 04/18/17 05:22 04/18/17 05:22 Labs: Abnormal Lab Results - Last 24 Hours (Table) 04/17/17 04/17/17 04/17/17 Range/Units 11:57 17:04 17:23 WBC (3.8-10.6) k/uL RBC (4.30-5.90) m/uL Hgb (13.0-17.5) gm/dL Hct (39.0-53.0) % Neutrophils # (1.3-7.7) k/uL APTT (22.0-30.0) sec Sodium (137-145) mmol/L Creatinine (0.66-1.25) mg/dL Glucose (74-99) mg/dL POC Glucose (mg/dL) 188 H (75-99) mg/dL Hemoglobin A1c 6.4 H (4.2-6.1) % Total Creatine Kinase 740 H (55-170) U/L CK-MB (CK-2) 45.4 H* (0.0-2.4) ng/mL Troponin I 23.000 H* (0.000-0.034) ng/mL 04/17/17 04/17/17 04/17/17 Range/Units 21:54 23:30 23:30 WBC (3.8-10.6) k/uL RBC (4.30-5.90) m/uL Hgb (13.0-17.5) gm/dL Hct (39.0-53.0) % Neutrophils # (1.3-7.7) k/uL APTT 51.6 H (22.0-30.0) sec Sodium (137-145) mmol/L Creatinine (0.66-1.25) mg/dL Glucose (74-99) mg/dL POC Glucose (mg/dL) 137 H (75-99) mg/dL Hemoglobin A1c (4.2-6.1) % Total Creatine Kinase 887 H (55-170) U/L CK-MB (CK-2) 62.2 H* (0.0-2.4) ng/mL Troponin I 70.900 H* (0.000-0.034) ng/mL 04/18/17 04/18/17 04/18/17 Range/Units 05:22 05:22 06:17 WBC 10.7 H (3.8-10.6) k/uL RBC 3.65 L (4.30-5.90) m/uL Hgb 11.4 L (13.0-17.5) gm/dL Hct 34.0 L (39.0-53.0) % Neutrophils # 8.3 H (1.3-7.7) k/uL APTT (22.0-30.0) sec Sodium 132 L (137-145) mmol/L Creatinine 1.40 H (0.66-1.25) mg/dL Glucose 136 H (74-99) mg/dL POC Glucose (mg/dL) 147 H (75-99) mg/dL Hemoglobin A1c (4.2-6.1) % Total Creatine Kinase (55-170) U/L CK-MB (CK-2) (0.0-2.4) ng/mL Troponin I (0.000-0.034) ng/mL 04/18/17 Range/Units 11:42 WBC (3.8-10.6) k/uL RBC (4.30-5.90) m/uL Hgb (13.0-17.5) gm/dL Hct (39.0-53.0) % Neutrophils # (1.3-7.7) k/uL APTT (22.0-30.0) sec Sodium (137-145) mmol/L Creatinine (0.66-1.25) mg/dL Glucose (74-99) mg/dL POC Glucose (mg/dL) 135 H (75-99) mg/dL Hemoglobin A1c (4.2-6.1) % Total Creatine Kinase (55-170) U/L CK-MB (CK-2) (0.0-2.4) ng/mL Troponin I (0.000-0.034) ng/mL Assessment and Plan (1) HTN (hypertension) Status: Acute (2) Hyperlipemia Status: Acute (3) Hyperlipemia Status: Acute (4) 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 We will obtain an echocardiogram with Doppler study check lytes BUN and creatinine in the morning. Continue current medications. DNP note has been reviewed, I agree with a documented findings and plan of care. Patient was seen and examined.
[2017-04-18 16:49] LABS: Glucose,Whole Blood 107 mg/dL (75-99)
[2017-04-18] MEDS: ATORVASTATIN 80 MG TAB PO SCH (20:42)
[2017-04-18 20:53] LABS: Glucose,Whole Blood 101 mg/dL (75-99)
[2017-04-19 05:49] LABS: Glucose,Whole Blood 122 mg/dL (75-99)
[2017-04-19] MEDS: INSULIN LISPRO (humaLOG) 300 UNIT/3 ML VIAL SQ SCH ×4 (06:27→22:53)
[2017-04-19 06:46] LABS: Calcium 9.2 mg/dL (8.4-10.2)
[2017-04-19] MEDS: SODIUM CHLORIDE 0.9% 1,000 ML IV SCH (07:53)
[2017-04-19] MEDS: FINASTERIDE 5 MG TAB PO SCH (08:28)
[2017-04-19] MEDS: ALPRAZolam 0.25 MG TAB PO PRN ×2 (08:28→20:26)
[2017-04-19] MEDS: CLOPIDOGREL 75 MG TAB PO SCH (08:28)
[2017-04-19] MEDS: VALSARTAN 160 MG TAB PO SCH (08:30)
[2017-04-19] MEDS: glipiZIDE 5 MG TAB PO SCH (08:30)
[2017-04-19] MEDS: ASPIRIN 81 MG CHEW PO SCH (08:30)
[2017-04-19] MEDS: METOPROLOL TARTRATE 25 MG TAB PO SCH ×2 (08:30→20:18)
[2017-04-19] MEDS: SULFAMETHOX-TMP 800-160MG 1 EACH TAB PO SCH ×2 (08:34→20:18)
[2017-04-19] MEDS: CYANOCOBALAMIN 500 MCG TAB PO SCH (11:33)
[2017-04-19 12:03] LABS: Glucose,Whole Blood 75 mg/dL (75-99)
[2017-04-19 12:39] VITALS: RESP 16
--- NOTE | 2017-04-19 12:46 | P.PN ---
Subjective This is a 81-year-old male one of Dr. Garza with a previous medical history significant for hypertension and hypertensive cardiovascular disease with left ventricular hypertrophy, diabetes mellitus type 2, a large prostate, patient developed to have significant chest pain associated with exertion with what appears to be an effort angina about 4-6 weeks prior to the admission and he has been getting on and off more chest pain. Patient stated that he was in his usual state of health about yesterday when he was working outside and developed to have a significant left-sided chest pain radiating to the neck associated with tightness in his neck with left arm numbness as well he ended up coming to the ER for evaluation had an EKG that showed nonspecific ST-T wave changes, patient was started on heparin drip as well as an aspirin and he was admitted to the hospital cardiology consultation was obtained, patient initial laboratory evaluation showed negative troponin however the second troponin came back quite elevated he was rotated non-ST elevation [place] patient was seen by Dr. Guzman and he was taken to the calibration laboratory technician underwent left heart catheterization that showed 95% stenosis of the obtuse marginal branch of the LCx, he underwent stenting of the artery by Dr. Marie and he was admitted to the hospital, he is be maintained on aspirin 81 mg once every day, Plavix 75 minute gram orally once every day, Lipitor 80 mg orally once every day. 04/18/2017: Patient is feeling a lot better today and he has a chest pain, shortness of breath, he denies any abdominal pain, nausea, he does complain of consultation for which she gets 2 Senokot and milk of magnesia, patient has not had any urinary retention, he did receive his Bactrim double strength twice every day. Was no evidence of any hematuria. 04/19: Patient denies any chest pain, shortness of breath, lightheadedness or dizziness. He has been ambulating in the hallway. Anticipate discharge home tomorrow. Objective - Vital Signs Vital signs: Vital Signs Temp 97.3 F L 04/19/17 08:00 Pulse 73 04/19/17 09:20 Resp 18 04/19/17 08:00 BP 129/77 04/19/17 09:20 Pulse Ox 97 04/19/17 09:20 Intake & Output 04/18/17 04/19/17 04/19/17 18:59 06:59 18:59 Intake Total 1020 0 Output Total 200 Balance 820 0 Weight 77.5 kg Intake: IV 600 0 Sodium Chloride 0.9% 1, 600 0 000 ml @ 75 mls/hr IV . [id number] [facility] Rx#:[id number] Oral 420 Output: Urine 200 Other: Voiding Method Urinal Toilet Urinal # Voids 3 # Bowel Movements 0 1 - Exam General appearance: no acute distress - EENT Eyes: anicteric sclerae, EOMI, PERRLA, no ptosis, no scleral icterus, normal appearance ENT: hearing grossly normal, NA/AT, normal oropharynx, no thrush Ears: bilateral: normal - Neck Neck: no lymphadenopathy, normal ROM, no rigidity, no stridor, no thyromegaly Carotids: bilateral: upstroke normal Thyroid: bilateral: normal size - Respiratory Respiratory: bilateral: diminished, negative: dullness, rales, rhonchi, wheezing , prolonged expiration, prolonged inspiration - Cardiovascular Rhythm: regular Heart sounds: normal: S1, S2 Abnormal Heart Sounds: systolic murmur, no rub, S3 Gallop, no click - Gastrointestinal General gastrointestinal: normal bowel sounds, soft, no splenomegaly, no tenderness, no umbilical hernia, no ventral hernia - Integumentary Integumentary: normal, normal turgor - Neurologic Neurologic: CNII-XII intact - Musculoskeletal Musculoskeletal: strength equal bilaterally - Psychiatric Psychiatric: A&O x's 3, appropriate affect, intact judgment & insight - Labs CBC & Chem 7: 04/18/17 05:22 04/19/17 05:28 Labs: Abnormal Lab Results - Last 24 Hours (Table) 04/17/17 04/18/17 04/18/17 Range/Units 11:57 11:42 16:46 Sodium (137-145) mmol/L Creatinine (0.66-1.25) mg/dL Glucose (74-99) mg/dL POC Glucose (mg/dL) 135 H 107 H (75-99) mg/dL Hemoglobin A1c 6.4 H (4.2-6.1) % 04/18/17 04/19/17 04/19/17 Range/Units 20:40 05:28 05:47 Sodium 134 L (137-145) mmol/L Creatinine 1.60 H (0.66-1.25) mg/dL Glucose 109 H (74-99) mg/dL POC Glucose (mg/dL) 101 H 122 H (75-99) mg/dL Hemoglobin A1c (4.2-6.1) % Assessment and Plan Plan: 1. Non-ST elevation IA post left heart catheterization and PCI of the OM1 off the LCx. Continue aspirin 81 mg once every day, continue Plavix 75 mg orally once every day, continue Lipitor 80 mg orally once every day, metoprolol 25 mg orally twice every day, echogram done, increase activity. 2. Hypertension and hypertensive cardio vascular disease. Continue patient on metoprolol 25 mg orally twice every day, amlodipine 5 mg orally once every day. 3. Hyperlipidemia. Continue patient on Lipitor 80 mg orally once every day. Lipid panel will be done. 4. Diabetes mellitus type 2. Continue patient on consistent carbohydrate diet 1800-calorie continue patient on glipizide 5 minute gram orally once every day, continue statin scale insulin, BGM before each meal and at bedtime. 5. Enlarged prostate. Monitor the patient very closely for urinary retention. Continue patient on finasteride 5 mg orally once every day. 6. Reported history of hematuria. Continue Bactrim double strength 1 tablet twice every day, follow-up with urology as an outpatient. 7. Acute kidney injury and top of chronic kidney disease. Continue IV fluid resuscitation, monitor the patient CMP magnesium and phosphorus in the next 24 hours. 8. DVT prophylaxis. Lovenox 40 mg subcutaneously every 24 hours. 9. GI prophylaxis. Continue PPI. 10. Admitted to inpatient. Estimate a length of stay 2 midnights. 11. Patient is full code. Discharge plan: Home in the next 24 hours Impression and plan of care have been directed as dictated by the signing physician. Becky Bowles nurse practitioner acting as scribe for signing physician.
--- NOTE | 2017-04-19 15:18 | P.PN ---
Subjective Principal diagnosis: Non-STEMI This is a pleasant 81-year-old gentleman who presented to the hospital with a non-ST elevation myocardial infarction. He underwent angioplasty with stenting of the OM by Dr. Venkat Marie. Patient was seen and examined this morning, denies any chest pain or difficulty in breathing. Blood pressure this morning 104/60 with a heart rate in the 60s. 96% on room air EKG shows normal sinus rhythm with no changes from post-PCI. Patient seen and examined today, denies any chest pain, breathing is stable. Echo with Doppler study was performed and is yet pending. Objective - Vital Signs Vital signs: Vital Signs Temp 98.1 F 04/19/17 12:00 Pulse 58 L 04/19/17 12:00 Resp 16 04/19/17 12:00 BP 113/70 04/19/17 12:00 Pulse Ox 96 04/19/17 12:00 Intake & Output 04/18/17 04/19/17 04/19/17 18:59 06:59 18:59 Intake Total 1020 0 480 Output Total 200 Balance 820 0 480 Weight 77.5 kg Intake: IV 600 0 Sodium Chloride 0.9% 1, 600 0 000 ml @ 75 mls/hr IV . [id number] [facility] Rx#:[id number] Oral 420 480 Output: Urine 200 Other: Voiding Method Urinal Toilet Urinal # Voids 3 1 # Bowel Movements 0 1 - Exam PHYSICAL EXAMINATION: HEENT: Head is atraumatic, normocephalic. Pupils equal, round. Neck is supple. There is no elevated jugular venous pressure. HEART EXAMINATION: Heart S1, S2 normal. No murmur or gallop heard. CHEST EXAMINATION: Lungs are clear to auscultation and precussion. No chest wall tenderness is noted on palpation or with deep breathing. ABDOMEN: Soft, nontender. Bowel sounds are heard. No organomegaly noted. Right groin soft, no evidence of any hematoma. EXTREMITIES: 2+ peripheral pulses with no evidence of peripheral edema and no calf tenderness noted. NEUROLOGIC patient is awake, alert and oriented -3. . 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 We will review the echocardiogram with Doppler study. Plan for possible discharge home in the morning if stable. DNP note has been reviewed, I agree with a documented findings and plan of care. Patient was seen and examined.
[2017-04-19 16:55] LABS: Glucose,Whole Blood 87 mg/dL (75-99)
[2017-04-19 18:33] LABS: Glucose,Whole Blood 226 mg/dL (75-99)
[2017-04-19] MEDS: ATORVASTATIN 80 MG TAB PO SCH (20:18)
[2017-04-19 21:09] LABS: Glucose,Whole Blood 196 mg/dL (75-99)
[2017-04-20 06:11] LABS: Glucose,Whole Blood 123 mg/dL (75-99)
[2017-04-20 06:18] LABS: Calcium 9.1 mg/dL (8.4-10.2); Potassium 5.1 mmol/L (3.5-5.1)
[2017-04-20] MEDS: INSULIN LISPRO (humaLOG) 300 UNIT/3 ML VIAL SQ SCH ×2 (06:46→11:46)
[2017-04-20] MEDS: ALPRAZolam 0.25 MG TAB PO PRN (08:19)
[2017-04-20] MEDS: FINASTERIDE 5 MG TAB PO SCH (08:19)
[2017-04-20] MEDS: SULFAMETHOX-TMP 800-160MG 1 EACH TAB PO SCH (08:19)
[2017-04-20] MEDS: METOPROLOL TARTRATE 25 MG TAB PO SCH (08:19)
[2017-04-20] MEDS: glipiZIDE 5 MG TAB PO SCH (08:20)
[2017-04-20] MEDS: ASPIRIN 81 MG CHEW PO SCH (08:20)
[2017-04-20] MEDS: CLOPIDOGREL 75 MG TAB PO SCH (08:20)
[2017-04-20] MEDS: VALSARTAN 160 MG TAB PO SCH (08:20)
--- NOTE | 2017-04-20 09:52 | ECHOF ---
Referral Reason:nstemi MEASUREMENTS -------- HEIGHT: 177.8 cm WEIGHT: 77.1 kg BP: 103/64 RVIDd: 3.1 cm (< 3.3) IVSd: 1.4 cm (0.6 - 1.1) LVIDd: 3.1 cm (3.9 - 5.3) LVPWd: 1.4 cm (0.6 - 1.1) IVSs: 2.0 cm LVIDs: 1.7 cm LVPWs: 2.0 cm LAESV Index (A-L): 21.73 ml/m Ao Diam: 3.4 cm (2.0 - 3.7) AV Cusp: 1.7 cm (1.5 - 2.6) LA Diam: 4.5 cm (2.7 - 3.8) MV EXCURSION: 12.495 mm (> 18.000) MV EF SLOPE: 52 mm/s (70 - 150) EPSS: 1.8 cm MV E Andreas: 0.86 m/s MV DecT: 262 ms MV A Andreas: 1.03 m/s MV E/A Ratio: 0.84 RAP: 5.00 mmHg RVSP: 23.43 mmHg FINDINGS -------- Sinus rhythm. This was a technically adequate study. There is mild concentric left ventricular hypertrophy. Overall left ventricular systolic function is normal with, an EF between 55 - 60 %. The right ventricle is normal in size and function. Normal LA size by volume 22+/-6 ml/m2. RA appears enlarged. Aortic valve is trileaflet and is mildly thickened. There is no evidence of aortic regurgitation. There is no evidence of aortic stenosis. The mitral valve leaflets are mildly thickened. There is trace mitral regurgitation. No regurgitation noted There is no evidence of pulmonary hypertension. The right ventricular systolic pressure, as measured by Doppler, is 23.43mmHg. The pulmonic valve was not well visualized. The aortic root size is normal. Normal inferior vena cava with normal inspiratory collapse consistent with estimated right atrial pressure of 5 mmHg. The pericardium is normal. There is no pericardial effusion. CONCLUSIONS -------- 1. Sinus rhythm. 2. No regurgitation noted 3. There is no evidence of pulmonary hypertension. 4. The right ventricular systolic pressure, as measured by Doppler, is 23.43mmHg. 5. The pulmonic valve was not well visualized. 6. The aortic root size is normal. 7. There is no pericardial effusion. 8. This was a technically adequate study. 9. There is mild concentric left ventricular hypertrophy. 10. Overall left ventricular systolic function is normal with, an EF between 55 - 60 %. 11. Normal LA size by volume 22+/-6 ml/m2. 12. RA appears enlarged. 13. Aortic valve is trileaflet and is mildly thickened. 14. The mitral valve leaflets are mildly thickened. 15. There is trace mitral regurgitation. FLAME HARDENING MACHINE SETTER: Fredi Hoffman RDCS
[2017-04-20 11:37] LABS: Glucose,Whole Blood 123 mg/dL (75-99)
[2017-04-20] MEDS: CYANOCOBALAMIN 500 MCG TAB PO SCH (11:43)
[2017-04-20 11:46] VITALS: BP 102/68; PULSE 61; TEMP 97.7
--- NOTE | 2017-04-20 13:22 | P.DS ---
Providers Date of admission: 04/17/17 14:24 Expected date of discharge: 04/20/17 Attending physician: Javan Jonas Consults: 04/17/17 14:24 Consult Physician Urgent Consulting Provider: Ethan Carter Consult Reason/Comments: Elevated troponin non-ST elevation myocardial infarction Do you want consulting provider notified?: Yes 04/17/17 21:16 Consult Physician Routine Consulting Provider: [facility] Consult Reason/Comments: Post Interventional patient Do you want consulting provider notified?: Already Contacted Primary care physician: Debora [facility] Hospital Course: This is a 81-year-old male one of Dr. Garza with a previous medical history significant for hypertension and hypertensive cardiovascular disease with left ventricular hypertrophy, diabetes mellitus type 2, a large prostate, patient developed to have significant chest pain associated with exertion with what appears to be an effort angina about 4-6 weeks prior to the admission and he has been getting on and off more chest pain. Patient stated that he was in his usual state of health about yesterday when he was working outside and developed to have a significant left-sided chest pain radiating to the neck associated with tightness in his neck with left arm numbness as well he ended up coming to the ER for evaluation had an EKG that showed nonspecific ST-T wave changes, patient was started on heparin drip as well as an aspirin and he was admitted to the hospital cardiology consultation was obtained, patient initial laboratory evaluation showed negative troponin however the second troponin came back quite elevated he was rotated non-ST elevation [place] patient was seen by Dr. Guzman and he was taken to the nitriles lab technician underwent left heart catheterization that showed 95% stenosis of the obtuse marginal branch of the LCx, he underwent stenting of the artery by Dr. Marie and he was admitted to the hospital, he is be maintained on aspirin 81 mg once every day, Plavix 75 minute gram orally once every day, Lipitor 80 mg orally once every day. 04/18/2017: Patient is feeling a lot better today and he has a chest pain, shortness of breath, he denies any abdominal pain, nausea, he does complain of consultation for which she gets 2 Senokot and milk of magnesia, patient has not had any urinary retention, he did receive his Bactrim double strength twice every day. Was no evidence of any hematuria. 04/19: Patient denies any chest pain, shortness of breath, lightheadedness or dizziness. He has been ambulating in the hallway. Anticipate discharge home tomorrow. 04/20: Patient denies any complaints today. He will be discharged home today in stable condition. Discharge diagnoses: 1. Non-ST elevation DE post left heart catheterization and PCI of the OM1 off the LCx. 2. Hypertension and hypertensive cardio vascular disease. 3. Hyperlipidemia. 4. Diabetes mellitus type 2. 5. Enlarged prostate. 6. Reported history of hematuria. Continue Bactrim double strength 1 tablet twice every day, follow-up with urology as an outpatient. 7. Acute kidney injury and top of chronic kidney disease III. Discharge plan: Home Impression and plan of care have been directed as dictated by the signing physician. Becky Bowles nurse practitioner acting as scribe for signing physician. Patient Condition at Discharge: Good Plan - Discharge Summary New Discharge Prescriptions: New Aspirin 81 mg PO DAILY Atorvastatin [Lipitor] 80 mg PO HS #30 tab Metoprolol Tartrate [Lopressor] 25 mg PO BID #60 tab Nitroglycerin Sl Tabs [Nitrostat] 0.4 mg SUBLINGUAL Q5M PRN #25 tab PRN Reason: Chest Pain Continue ALPRAZolam [Xanax] 0.25 mg PO BID PRN PRN Reason: Anxiety Valsartan [Diovan] 160 mg PO DAILY glipiZIDE [Glucotrol] 5 mg PO DAILY Clopidogrel [Plavix] 75 mg PO DAILY #30 tablet Finasteride [Proscar] 5 mg PO DAILY Cyanocobalamin (Vitamin B-12) [Vitamin B-12] 1,000 mcg PO DAILY Acetaminophen Tab [Tylenol] 500 mg PO Q6H PRN PRN Reason: Pain Sulfamethox-Tmp 800-160Mg [Bactrim DS 800-160 mg] 1 tab PO Q12HR Discontinued amLODIPine [Norvasc] 5 mg PO DAILY metFORMIN HCL 1,000 mg PO BID Atorvastatin [Lipitor] 40 mg PO HS [place]-3 Fatty Acids/Fish Oil [Fish Oil 1,000 mg Capsule] 1 cap PO DAILY Aspirin 325 mg PO DAILY PRN PRN Reason: Chest Pain Hoda 1 cap PO DAILY Discharge Medication List ALPRAZolam [Xanax] 0.25 mg PO BID PRN 10/30/14 [History] Valsartan [Diovan] 160 mg PO DAILY 10/30/14 [History] glipiZIDE [Glucotrol] 5 mg PO DAILY 10/30/14 [History] Clopidogrel [Plavix] 75 mg PO DAILY #30 tablet 10/31/14 [Rx] Acetaminophen Tab [Tylenol] 500 mg PO Q6H PRN 04/17/17 [History] Cyanocobalamin (Vitamin B-12) [Vitamin B-12] 1,000 mcg PO DAILY 04/17/17 [ History] Finasteride [Proscar] 5 mg PO DAILY 04/17/17 [History] Sulfamethox-Tmp 800-160Mg [Bactrim DS 800-160 mg] 1 tab PO Q12HR 04/17/17 [ History] Aspirin 81 mg PO DAILY 04/20/17 [Rx] Atorvastatin [Lipitor] 80 mg PO HS #30 tab 04/20/17 [Rx] Metoprolol Tartrate [Lopressor] 25 mg PO BID #60 tab 04/20/17 [Rx] Nitroglycerin Sl Tabs [Nitrostat] 0.4 mg SUBLINGUAL Q5M PRN #25 tab 04/20/17 [Rx ] Follow up Appointment(s)/Referral(s): [facility] [Provider Group] - 04/25/17 11:00 am (previously scheduled appointment) Debora Torres MD [Primary Care Provider] - 04/27/17 8:30 am Patient Instructions/Handouts: *Surgery [facility] - After Heart Catheterization - Field Machinist Instructions, Myocardial Infarction (DC), Left Heart Catheterization (DC), Heart Catheterization (DC) Discharge Disposition: HOME SELF-CARE
--- NOTE | 2017-04-20 13:25 | P.PN ---
Subjective Principal diagnosis: Non-STEMI This is a pleasant 81-year-old gentleman who presented to the hospital with a non-ST elevation myocardial infarction. He underwent angioplasty with stenting of the OM by Dr. Venkat Marie. Patient was seen and examined this morning, denies any chest pain or difficulty in breathing. Blood pressure this morning 102/60 with a heart rate in the 60s. 96% on room air EKG shows normal sinus rhythm with no changes from post-PCI. Patient seen and examined today, denies any chest pain, breathing is stable. Echo with Doppler study was performed which revealed an ejection fraction of 55-60%. Patient is quite eager to be discharged home today, denies any chest pain and breathing has been stable. Objective - Vital Signs Vital signs: Vital Signs Temp 97.7 F 04/20/17 11:44 Pulse 61 04/20/17 11:44 Resp 16 04/20/17 11:44 BP 102/68 04/20/17 11:44 Pulse Ox 96 04/20/17 11:44 Intake & Output 04/19/17 04/20/17 04/20/17 18:59 06:59 18:59 Intake Total 780 360 Output Total 450 400 Balance 780 -450 -40 Weight 77.2 kg Intake: Oral 780 360 Output: Urine 450 400 Other: Voiding Method Toilet Urinal # Voids 1 1 # Bowel Movements 0 - Exam PHYSICAL EXAMINATION: HEENT: Head is atraumatic, normocephalic. Pupils equal, round. Neck is supple. There is no elevated jugular venous pressure. HEART EXAMINATION: Heart S1, S2 normal. No murmur or gallop heard. CHEST EXAMINATION: Lungs are clear to auscultation and precussion. No chest wall tenderness is noted on palpation or with deep breathing. ABDOMEN: Soft, nontender. Bowel sounds are heard. No organomegaly noted. Right groin soft, no evidence of any hematoma. EXTREMITIES: 2+ peripheral pulses with no evidence of peripheral edema and no calf tenderness noted. NEUROLOGIC patient is awake, alert and oriented -3. . - Labs CBC & Chem 7: 04/18/17 05:22 04/20/17 05:25 Labs: Abnormal Lab Results - Last 24 Hours (Table) 04/19/17 04/19/17 04/20/17 Range/Units 18:13 21:05 05:25 Sodium 135 L (137-145) mmol/L Creatinine 1.76 H (0.66-1.25) mg/dL Glucose 113 H (74-99) mg/dL POC Glucose (mg/dL) 226 H 196 H (75-99) mg/dL 04/20/17 04/20/17 Range/Units 06:07 11:27 Sodium (137-145) mmol/L Creatinine (0.66-1.25) mg/dL Glucose (74-99) mg/dL POC Glucose (mg/dL) 123 H 123 H (75-99) mg/dL Assessment and Plan (1) HTN (hypertension) Status: Acute (2) Hyperlipemia Status: Acute (3) Hyperlipemia Status: Acute (4) 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 Patient may be able to be discharged home today he will have a follow-up appointment with Dr. Carter in the office post discharge. Patient will be discharged home on aspirin 81 mg daily, Lipitor 80 mg daily, Plavix 75 mg daily, metoprolol tartrate 25 mg one tablet by mouth twice a day, and valsartan 160 mg daily along with sublingual nitroglycerin. He has been provided prescriptions from the above medications. DNP note has been reviewed, I agree with a documented findings and plan of care. Patient was seen and examined.
== END 2017-04-20 14:13 | disposition home or self-care (01) | DRG 247 ==
LOC: EC 11:37 → 6SEL 14:24
PROVIDERS: ADMIT Internal Medicine; ATTEND Internal Medicine
PROC: B2111ZZ Fluoroscopy of Multiple Coronary Arteries using Low Osmolar Contrast (ICD-10-PCS; 2017-04-17)
PROC: B2151ZZ Fluoroscopy of Left Heart using Low Osmolar Contrast (ICD-10-PCS; 2017-04-17)
PROC: 027034Z Dilation of Coronary Artery, One Artery with Drug-eluting Intraluminal Device, Percutaneous Approach (ICD-10-PCS; principal; 2017-04-17 20:10)
PROC: 4A023N7 Measurement of Cardiac Sampling and Pressure, Left Heart, Percutaneous Approach (ICD-10-PCS; 2017-04-17 20:10)
DX: I21.4 Non-ST elevation (NSTEMI) myocardial infarction (principal); N17.9 Acute kidney failure, unspecified; E11.22 Type 2 diabetes mellitus with diabetic chronic kidney disease; I13.10 Hypertensive heart and chronic kidney disease without heart failure, with stage 1 through stage 4 chronic kidney disease, or unspecified chronic kidney disease; E83.42 Hypomagnesemia; E78.5 Hyperlipidemia, unspecified; I25.10 Atherosclerotic heart disease of native coronary artery without angina pectoris; N18.3 Chronic kidney disease, stage 3 (moderate); K21.9 Gastro-esophageal reflux disease without esophagitis; E78.00 Pure hypercholesterolemia, unspecified; I71.4 Abdominal aortic aneurysm, without rupture; K59.00 Constipation, unspecified; N40.0 Benign prostatic hyperplasia without lower urinary tract symptoms; F41.9 Anxiety disorder, unspecified; R31.9 Hematuria, unspecified; T45.526A Underdosing of antithrombotic drugs, initial encounter; M19.90 Unspecified osteoarthritis, unspecified site; Z79.899 Other long term (current) drug therapy; Z86.73 Personal history of transient ischemic attack (TIA), and cerebral infarction without residual deficits; Z79.82 Long term (current) use of aspirin; Z86.010 Personal history of colon polyps; Z79.2 Long term (current) use of antibiotics; Z79.84 Long term (current) use of oral hypoglycemic drugs; Z85.828 Personal history of other malignant neoplasm of skin; Z87.891 Personal history of nicotine dependence; Z83.3 Family history of diabetes mellitus; Z82.49 Family history of ischemic heart disease and other diseases of the circulatory system; Z81.1 Family history of alcohol abuse and dependence; Z87.19 Personal history of other diseases of the digestive system; Z86.19 Personal history of other infectious and parasitic diseases
CPT/HCPCS: 36415; 71020; 80048; 80053; 80061; 82550; 82553; 83036; 83735; 84484; 85025; 85610; 85730; 87086; 93005; 93306; 93458; 99291

== ENCOUNTER → 2017-05-31 | Outpatient (CLI) | payer MEDICARE, BC ==
[2017-05-31 19:41] LABS: Calcium 9.3 mg/dL (8.4-10.2); Total Bilirubin 0.6 mg/dL (0.2-1.3)
[2017-05-31 19:42] LABS: Basophils # (A) 0.1 k/uL (0-0.2); Basophils % (A) 1 %; CH 29.4; CHCM 31.3; Eosinophils # (A) 0.2 k/uL (0-0.7); Eosinophils % (A) 2 %; HCT 39.9 % (39.0-53.0); HDW 2.73; HGB 12.2 gm/dL (13.0-17.5); Hypochromasia Slight; Luc # (Auto) 0.21; Luc % (Auto) 2; Lymphocytes % (A) 18 %; MCH 28.8 pg (25.0-35.0); MCHC 30.5 g/dL (31.0-37.0); MCV 94.4 fL (80.0-100.0); Mean Platelet Volume 8.3; Monocytes # (A) 0.9 k/uL (0-1.0); Monocytes % (A) 8 %; Neutrophils # (A) 7.9 k/uL (1.3-7.7); Neutrophils % (A) 70 %; RBC 4.23 m/uL (4.30-5.90); RDW 13.7 % (11.5-15.5); WBC 11.2 k/uL (3.8-10.6)
[2017-05-31 23:20] LABS: Hemoglobin A1C 7.2 % (4.2-6.1)
== END ==
LOC: MMGSC 14:25
PROVIDERS: ATTEND Family Medicine
DX: E11.9 Type 2 diabetes mellitus without complications (principal); I10 Essential (primary) hypertension; R79.9 Abnormal finding of blood chemistry, unspecified
CPT/HCPCS: 36415; 80053; 83036; 85025

== ENCOUNTER → 2017-06-14 | Outpatient (CLI) | payer MEDICARE, BC ==
[2017-06-14 22:34] LABS: Basophils # (A) 0.1 k/uL (0-0.2); Basophils % (A) 1 %; CH 29.4; CHCM 31.3; Eosinophils # (A) 0.2 k/uL (0-0.7); Eosinophils % (A) 2 %; HCT 41.5 % (39.0-53.0); HGB 12.6 gm/dL (13.0-17.5); Hypochromasia Slight; Luc # (Auto) 0.22; Luc % (Auto) 2; Lymphocytes # (A) 1.9 k/uL (1.0-4.8); Lymphocytes % (A) 19 %; MCH 28.6 pg (25.0-35.0); MCHC 30.4 g/dL (31.0-37.0); MCV 94.1 fL (80.0-100.0); Mean Platelet Volume 8.6; Monocytes # (A) 0.8 k/uL (0-1.0); Monocytes % (A) 8 %; Neutrophils # (A) 6.6 k/uL (1.3-7.7); Neutrophils % (A) 68 %; RBC 4.41 m/uL (4.30-5.90); RDW 13.7 % (11.5-15.5); WBC 9.8 k/uL (3.8-10.6); WBC (Perox) 10.34
== END | disposition home or self-care (01) ==
LOC: MMGSC 10:56
PROVIDERS: ATTEND Family Medicine
DX: R53.83 Other fatigue (principal); D72.829 Elevated white blood cell count, unspecified
CPT/HCPCS: 36415; 82306; 82607; 85025

== ENCOUNTER 2017-07-19 12:15 | Day surgery (SDC) | payer MEDICARE, BC ==
[2017-07-18 10:39] VITALS: BMI 26.6
[~2017-07-19 12:15] MED LIST: LACTATED RINGERS 1,000 ML IV SCH
[2017-07-19 12:43] VITALS: RESP 16; TEMP 97.7
[2017-07-19] MEDS ORDERED: LIDOCAINE 1% 20 ML VIAL (10MG/ML) FOR IV START INTRADERMA ONE (12:46)
[2017-07-19] MEDS ORDERED: PROPOFOL 10 MG/ML 20 ML VIAL IV ONE (12:50)
[2017-07-19 12:51] LABS: Glucose,Whole Blood 132 mg/dL (75-99)
--- NOTE | 2017-07-19 13:23 | P.PCN ---
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 He had a good prep. He had some diverticulosis noted primarily in the sigmoid colon. There is some mild erythema of the sigmoid mucosa from about 20-30 cm and cold biopsy was obtained. About 25 cm there appears to be a opening separate from the regular colonic lumen. I could enter that with the endoscope. The mucosa appeared atypical and heaped up. Location it did appear that there was some normal mucosa. I did several biopsies of this to rule out either cancer or also this could possibly be a chronic fistula. The colon is otherwise without evidence of polyp, mass lesion, other abnormality abnormality. He tolerated the procedure without difficulty and is taken recovery room in satisfactory condition. I'll obtain some lab and a barium enema. Further recommendations to follow. Plan - Discharge Summary New Discharge Prescriptions: No Action ALPRAZolam [Xanax] 0.25 mg PO BID Valsartan [Diovan] 160 mg PO DAILY glipiZIDE [Glucotrol] 5 mg PO BID Clopidogrel [Plavix] 75 mg PO DAILY #30 tablet Finasteride [Proscar] 5 mg PO HS Cyanocobalamin (Vitamin B-12) [Vitamin B-12] 1,000 mcg PO DAILY Aspirin 81 mg PO DAILY Atorvastatin [Lipitor] 80 mg PO HS #30 tab Metoprolol Tartrate [Lopressor] 25 mg PO BID #60 tab Nitroglycerin Sl Tabs [Nitrostat] 0.4 mg SUBLINGUAL Q5M PRN #25 tab PRN Reason: Chest Pain sitaGLIPtin [Januvia] 50 mg PO BID Discharge Medication List ALPRAZolam [Xanax] 0.25 mg PO BID 10/30/14 [History] Valsartan [Diovan] 160 mg PO DAILY 10/30/14 [History] glipiZIDE [Glucotrol] 5 mg PO BID 10/30/14 [History] Clopidogrel [Plavix] 75 mg PO DAILY #30 tablet 10/31/14 [Rx] Cyanocobalamin (Vitamin B-12) [Vitamin B-12] 1,000 mcg PO DAILY 04/17/17 [ History] Finasteride [Proscar] 5 mg PO HS 04/17/17 [History] Aspirin 81 mg PO DAILY 04/20/17 [Rx] Atorvastatin [Lipitor] 80 mg PO HS #30 tab 04/20/17 [Rx] Metoprolol Tartrate [Lopressor] 25 mg PO BID #60 tab 04/20/17 [Rx] Nitroglycerin Sl Tabs [Nitrostat] 0.4 mg SUBLINGUAL Q5M PRN #25 tab 04/20/17 [Rx ] sitaGLIPtin [Januvia] 50 mg PO BID 07/18/17 [History] Discharge Disposition: HOME SELF-CARE
[2017-07-19 13:39] LABS: Glucose,Whole Blood 126 mg/dL (75-99)
[2017-07-19 13:42] VITALS: BP 129/70; PULSE 59
== END 2017-07-19 14:17 | disposition home or self-care (01) ==
LOC: ORWHC2ENDO 12:15
PROVIDERS: ATTEND Surgery
DX: Z12.11 Encounter for screening for malignant neoplasm of colon (principal); Z86.010 Personal history of colon polyps; K57.30 Diverticulosis of large intestine without perforation or abscess without bleeding; I10 Essential (primary) hypertension; G47.33 Obstructive sleep apnea (adult) (pediatric); E78.5 Hyperlipidemia, unspecified; E11.9 Type 2 diabetes mellitus without complications; I25.2 Old myocardial infarction; Z86.73 Personal history of transient ischemic attack (TIA), and cerebral infarction without residual deficits; Z79.4 Long term (current) use of insulin; Z79.84 Long term (current) use of oral hypoglycemic drugs
CPT/HCPCS: 88305; 82378; 45380; J2704

== ENCOUNTER → 2017-07-25 | Outpatient (CLI) | payer MEDICARE, BC ==
--- NOTE | 2017-07-25 12:56 | FL ---
EXAMINATION TYPE: FL barium enema DATE OF EXAM: 07/25/2017 CLINICAL HISTORY: K31.6 incomplete colonoscopy/fistula abnormality 2 minutes 20 sec fluoro. 20 images obtained. TECHNIQUE: A single contrast barium enema study is performed. COMPARISON: None. FINDINGS: Custodial Aide view of the abdomen shows overall non-obstructive bowel gas pattern. There is severe diverticulosis involving the sigmoid colon. There is evidence of circular muscle wall hypertrophy with Associated luminal narrowing. There is a large prominent contained extraluminal col lection of barium which may reflect a giant sigmoid diverticulum and/or sequela of prior diverticulit is. No definite active acute diverticulitis appreciated. The remainder of the colon is free of additional luminal narrowing or distinct mass. No persistent in traluminal filling defects are seen. There is a normal-appearing appendix. No reflux into the termina l ileum at this time. IMPRESSION: 1.There is severe diverticulosis involving the sigmoid colon. There is evidence of circular muscle wa ll hypertrophy and Associated luminal narrowing. There is a large prominent contained extraluminal co llection of barium which may reflect a giant sigmoid diverticulum and/or sequela of prior diverticuli tis.
== END ==
LOC: RADFLMAIN 09:15
PROVIDERS: ATTEND Surgery
DX: K57.30 Diverticulosis of large intestine without perforation or abscess without bleeding (principal)
CPT/HCPCS: 74270

== ENCOUNTER → 2017-09-06 | Outpatient (CLI) | payer MEDICARE, BC ==
[2017-09-06 19:29] LABS: Calcium 9.3 mg/dL (8.4-10.2); Potassium 4.9 mmol/L (3.5-5.1); Total Bilirubin 0.6 mg/dL (0.2-1.3); Total Protein 7.1 g/dL (6.3-8.2)
== END | disposition home or self-care (01) ==
LOC: MMGSC 09:52
PROVIDERS: ATTEND Family Medicine
DX: E55.9 Vitamin D deficiency, unspecified (principal); E11.9 Type 2 diabetes mellitus without complications; I10 Essential (primary) hypertension; I25.10 Atherosclerotic heart disease of native coronary artery without angina pectoris
CPT/HCPCS: 36415; 80053; 80061; 82043; 82306; 82570; 83036; 84439; 84443

== ENCOUNTER → 2017-12-13 | Outpatient (CLI) | payer MEDICARE, BC ==
[2017-12-13 18:54] LABS: Albumin 3.6 g/dL (3.5-5.0); Calcium 9.2 mg/dL (8.4-10.2); Potassium 5.4 mmol/L (3.5-5.1); Total Bilirubin 0.5 mg/dL (0.2-1.3); Total Protein 6.8 g/dL (6.3-8.2)
[2017-12-14 03:56] LABS: Hemoglobin A1C 7.2 % (4.0-6.0)
== END | disposition home or self-care (01) ==
LOC: MMGSC 14:42
PROVIDERS: ATTEND Family Medicine
DX: I10 Essential (primary) hypertension (principal); I25.10 Atherosclerotic heart disease of native coronary artery without angina pectoris; E11.9 Type 2 diabetes mellitus without complications; M79.1 Myalgia; M25.50 Pain in unspecified joint; E55.9 Vitamin D deficiency, unspecified
CPT/HCPCS: 36415; 80053; 82306; 82550; 83036; 99214

== ENCOUNTER → 2017-12-15 | Outpatient (CLI) | payer MEDICARE, BC ==
[2017-12-15 18:49] LABS: Calcium 9.5 mg/dL (8.4-10.2); Potassium 5.4 mmol/L (3.5-5.1)
== END | disposition home or self-care (01) ==
LOC: MMGSC 10:19
PROVIDERS: ATTEND Family Medicine
DX: E87.5 Hyperkalemia (principal)
CPT/HCPCS: 36415; 80048

== ENCOUNTER → 2017-12-19 | Outpatient (CLI) | payer MEDICARE, BC | END | disposition home or self-care (01) | LOC: MMGSC 11:56 | PROVIDERS: ATTEND Family Medicine | DX: J02.9 Acute pharyngitis, unspecified (principal) | CPT/HCPCS: 87070 ==

== ENCOUNTER → 2017-12-22 | Outpatient (CLI) | payer MEDICARE, BC ==
--- NOTE | 2017-12-22 15:17 | US ---
EXAMINATION TYPE: US kidneys/renal and bladder DATE OF EXAM: 12/22/2017 COMPARISON: CTA aorta 2012 CLINICAL HISTORY: R79.89 Elevated Creatinine, R94.4 Abn Kidney Function. EXAM MEASUREMENTS: Right Kidney: 9.3x 4.6 x 4.8 cm Left Kidney: 8.2 x 3.4 x 4.5 cm Post Void Residual Volume: 5.3 mL Right Kidney: No hydronephrosis or masses seen Left Kidney: No hydronephrosis or masses seen Bladder: wnl Bilateral Jets seen: rt only Normal Post Void Residual: Yes There is no evidence for hydronephrosis at this point in time. No nephrolithiasis is seen. No gerda s are identified on images saved. The urinary bladder is poorly distended and thus suboptimally eval uated. Distal right ureter jet is seen. IMPRESSION: No hydronephrosis is evident bilaterally.
== END | disposition home or self-care (01) ==
LOC: RADUSWWP 13:57
PROVIDERS: ATTEND Family Medicine
DX: R94.4 Abnormal results of kidney function studies (principal); R79.89 Other specified abnormal findings of blood chemistry
CPT/HCPCS: 76770

== ENCOUNTER → 2018-01-05 | Outpatient (CLI) | payer MEDICARE, BC ==
[2018-01-05 18:48] LABS: Albumin 3.6 g/dL (3.5-5.0); Calcium 9.3 mg/dL (8.4-10.2); Potassium 4.8 mmol/L (3.5-5.1); Total Bilirubin 0.6 mg/dL (0.2-1.3); Total Protein 7.2 g/dL (6.3-8.2)
== END | disposition home or self-care (01) ==
LOC: MMGSC 11:28
PROVIDERS: ATTEND Family Medicine
DX: E87.6 Hypokalemia (principal)
CPT/HCPCS: 36415; 80053

== ENCOUNTER → 2018-05-15 | Outpatient (CLI) | payer MEDICARE, BC ==
--- NOTE | 2018-05-15 12:40 | MR ---
EXAMINATION TYPE: MR brain wo con DATE OF EXAM: 05/15/2018 COMPARISON: 10/31/2014 HISTORY: TIA T1-weighted sagittal, T2, FLAIR, and diffusion axial, and T2 coronal coronal views of the brain are s ubmitted. There is no evidence of acute ischemia. The ventricles, basal cisterns, and sulci overlying the conv exities are consistent with the patient's age. There is no mass effect. Craniocervical junction maintained. Sella turcica has a normal appearance. No cerebellopontine angle mass. Approximately 10 to 15 focal areas of abnormal signal the white matter . Confluent areas of abnormal signal the white matter are noted. FINDINGS: Stable. Changes of chronic sinusitis noted. IMPRESSION: 1. No acute intracranial process. 2. Stable nonspecific white matter changes most typical remote microvascular ischemia.
== END | disposition home or self-care (01) ==
LOC: RADMRIMAIN 11:22
PROVIDERS: ATTEND Psychiatry & Neurology Neurology
DX: R90.89 Other abnormal findings on diagnostic imaging of central nervous system (principal); Z86.73 Personal history of transient ischemic attack (TIA), and cerebral infarction without residual deficits
CPT/HCPCS: 70551

== ENCOUNTER → 2018-09-27 | Outpatient (CLI) | payer MEDICARE, BC ==
--- NOTE | 2018-09-27 09:09 | CT ---
EXAMINATION TYPE: CT abdomen wo con DATE OF EXAM: 09/27/2018 COMPARISON: 05/02/2013 HISTORY: Abdominal aortic aneurysm CT DLP: 366.6 mGycm Examination of the solid and hollow viscera is limited given the lack of contrast. Unenhanced CT of t he abdomen was performed. FINDINGS: LUNG BASES: No evidence for nodule. No evidence for infiltrate. LIVER/GB: The gallbladder is unremarkable. No space-occupying hepatic lesion. PANCREAS: Pancreatic head calcifications may reflect chronic pancreatitis. No pancreatic mass identif ied. No inflammatory process seen. SPLEEN: No evidence for splenomegaly. No intrasplenic lesions seen. ADRENALS: No adrenal nodules identified. No evidence for thickening. KIDNEYS: There is atrophic change of the left kidney. No nephrolithiasis. No hydronephrosis. BOWEL: Severe diverticulosis sigmoid colon which is partially imaged without definite evidence for di verticulitis. Mild wall thickening noted unchanged from prior study. Remainder of the small and large bowel appear to be grossly unremarkable at this time. Lymph nodes: No evidence for adenopathy greater than 1 cm. Abdominal aorta: Saccular infrarenal abdominal aortic aneurysm is again noted and appears to have pro gressed in the interval. Craniocaudal measurement is 6.5 cm AP dimension of 6.0 cm versus 5.4 x 4.1 c m previously. Lack of contrast does limit evaluation. There is aneurysmal dilatation of the bilateral common iliac arteries measuring 3 cm on the left and 2.2 cm on the right. Other: No significant abnormality. IMPRESSION: 1. Progression of infrarenal abdominal aortic aneurysm. Common iliac artery aneurysms bilaterally. 2. Severe sigmoid diverticulosis. 3. Atrophic change left kidney. 4. Chronic pancreatitis.
== END | disposition home or self-care (01) ==
LOC: RADCTMAIN 06:42
PROVIDERS: ATTEND Thoracic Surgery (Cardiothoracic Vascular Surgery)
DX: I71.4 Abdominal aortic aneurysm, without rupture (principal); I72.3 Aneurysm of iliac artery; K57.30 Diverticulosis of large intestine without perforation or abscess without bleeding; N26.1 Atrophy of kidney (terminal); K86.1 Other chronic pancreatitis
CPT/HCPCS: 36415; 74150; 82565; 84520

== ENCOUNTER → 2018-10-10 | Outpatient (CLI) | payer MEDICARE, BC | END | disposition home or self-care (01) | LOC: RADCTMAIN 15:07 | PROVIDERS: ATTEND Family Medicine | DX: N18.9 Chronic kidney disease, unspecified (principal) | CPT/HCPCS: 82565; 84520 ==

== ENCOUNTER → 2018-10-13 | Outpatient (CLI) | payer MEDICARE, BC ==
--- NOTE | 2018-10-13 12:08 | CT ---
EXAMINATION TYPE: CT angio abd aorta w/Runoff DATE OF EXAM: 10/13/2018 COMPARISON: 05/02/2013 HISTORY: abdominal aorta aneurysm w/o rupture CT DLP: 1492.40 mGycm CONTRAST: CTA thoracic and abdominal aorta with 3-D reconstruction is performed and with IV Contrast, patient i njected with 100 mL of Isovue 370. Contrast CTA of the abdominal aorta with runoff was performed from the lung bases through the ankles. 3-D reconstruction imaging obtained at a separate workstation. CONTRAST CT ABDOMEN AND PELVIS ABDOMINAL AORTA: Infrarenal abdominal aortic aneurysm measuring 6.0 cm AP dimension by 4.5 cm transve rse dimension which extends to the aortic bifurcation. Right common iliac artery aneurysm measuring 2 .4 cm and left common iliac artery aneurysm measuring 2.5 cm. Mild atheromatous change at the origin of the celiac axis. SMA and NUBIA are patent. Moderate left renal artery stenosis. Mild right renal art delia stenosis. Runoff vessels: Internal iliacs: Mild plaque seen bilaterally without hemodynamically significant stenosis. External iliac arteries: Mild plaque formation noted without hemodynamically significant stenosis. Femoral arteries: Severe long segment calcified plaque common femoral arteries bilaterally with less than 50% stenosis. Superficial femoral artery demonstrates scattered areas of calcific plaque without stenosis greater than 50%. Profunda femoris arteries are patent bilaterally without hemodynamically significant stenosis. Popliteal, trifurcation, tibial and peroneal arteries and arteries of the ankle and feet: Nondiagnost ic given lack of contrast opacification. Multifocal plaque disease. LIVER/GB- No significant abnormality is seen. PANCREAS- No significant abnormality is seen. SPLEEN- No significant abnormality is seen. ADRENALS- No significant abnormality is seen. KIDNEYS/BLADDER-atrophic changes of the left kidney. BOWEL-sigmoid colon wall thickening. Sigmoid inflammatory change may reflect chronic diverticulitis. Correlate clinically. Consider direct visualization. GENITAL ORGANS: No gross abnormality seen. LYMPH NODES- No greater than 1cm abdominal or pelvic lymph nodes are appreciated. OSSEOUS STRUCTURES-severe degenerative change lumbar spine. OTHER- No significant abnormality is seen. IMPRESSION- 1. Infrarenal bowel aortic aneurysm with aneurysm of the common iliac arteries. 2. Multifocal plaque disease without stenosis greater than 50% the common femoral and superficial fem oral arteries. 3. Nondiagnostic evaluation from the popliteal arteries distally given lack of contrast opacification and poor timing of contrast bolus. 4. Atrophic change left kidney. 5. sigmoid colon wall thickening. Sigmoid inflammatory change may reflect chronic diverticulitis. Cor relate clinically. Consider direct visualization.
== END | disposition home or self-care (01) ==
LOC: RADCTMAIN 08:57
PROVIDERS: ATTEND Family Medicine
DX: I71.4 Abdominal aortic aneurysm, without rupture (principal); I63.50 Cerebral infarction due to unspecified occlusion or stenosis of unspecified cerebral artery; I72.3 Aneurysm of iliac artery
CPT/HCPCS: 82565; 84520; 75635; 36415; Q9967

== ENCOUNTER 2018-11-04 07:57 | Observation (INO) | payer MEDICARE, BC ==
--- NOTE | 2018-11-04 08:04 | ED ---
General Adult HPI - General Stated complaint: SYNCOPAL EPISODE Time Seen by Provider: 11/04/18 07:57 Source: RN notes reviewed - History of Present Illness Initial comments: This is an 83-year-old male who was sent to us from [facility] they stated that he was near syncopal episode patient however when the patient arrives he states he never thought he was given a passout or come close to passing out. Patient states he was dizzy indicative of a previous diagnosis of vertigo. Patient states when he moves his head the dizziness is worse. Patient states he has unstable is afraid he'll follow. Patient denies any chest pain difficulty breathing or shortness of breath. Patient denies any recent fever chills or cough. Patient denies abdominal pain patient denies nausea vomiting diarrhea. Patient denies any lightheadedness. Patient states he feels as though the room around the spinning. Patient did receive meclizine at the other facility. - Related Data Home Medications Medication Instructions Recorded Confirmed ALPRAZolam [Xanax] 0.25 mg PO BID 10/30/14 07/18/17 Valsartan [Diovan] 160 mg PO DAILY 10/30/14 07/18/17 glipiZIDE [Glucotrol] 5 mg PO BID 10/30/14 07/18/17 Cyanocobalamin (Vitamin B-12) 1,000 mcg PO DAILY 04/17/17 07/19/17 [Vitamin B-12] Finasteride [Proscar] 5 mg PO HS 04/17/17 07/18/17 sitaGLIPtin [Januvia] 50 mg PO BID 07/18/17 07/18/17 Previous Rx's Medication Instructions Recorded Clopidogrel [Plavix] 75 mg PO DAILY #30 tablet 10/31/14 Aspirin 81 mg PO DAILY 04/20/17 Atorvastatin [Lipitor] 80 mg PO HS #30 tab 04/20/17 Metoprolol Tartrate [Lopressor] 25 mg PO BID #60 tab 04/20/17 Nitroglycerin Sl Tabs [Nitrostat] 0.4 mg SUBLINGUAL Q5M PRN #25 tab 04/20/17 Allergies Allergy/AdvReac Type Severity Reaction Status Date / Time No Known Allergies Allergy Verified 11/04/18 09:08 Review of Systems ROS Statement: Those systems with pertinent positive or pertinent negative responses have been documented in the HPI. ROS Other: All systems not noted in ROS Statement are negative. Past Medical History Past Medical History: Cancer, CVA/TIA, Diabetes Mellitus, Hyperlipidemia, Hypertension, Myocardial Infarction ([place]), Sleep Apnea/CPAP/BIPAP, Vascular Disorder Additional Past Medical History / Comment(s): hx sleep apnea-no cpap, hx migraines, TIA 10/2014- no effects, AAA followed by Dr. Mccarthy, diverticulitis , hx skin cancer Last Myocardial Infarction Date:: 04/17/17 History of Any Multi-Drug Resistant Organisms: None Reported Past Surgical History: Adenoidectomy, Heart Catheterization With Stent, Tonsillectomy Additional Past Surgical History / Comment(s): colonoscopy, basal cell cancer removed from forehead, one cardiac stents Past Anesthesia/Blood Transfusion Reactions: Motion Sickness Additional Past Anesthesia/Blood Transfusion Reaction / Comment(s): . Date of Last Stent Placement:: 03/2017 Smoking Status: Former smoker - Past Family History Brother(s) Family Medical History: No Reported History (Patient has one brother who had AVR.) Sister(s) Family Medical History: No Reported History (Patient has one sister major medical problems.) Son(s) Family Medical History: No Reported History (He shouldn't has 3 sons no major medical problems.) Father Family Medical History: Coronary Artery Disease (CAD) (Father at age 79 from [place] he also was alcoholic and he had history of diabetes), Diabetes Mellitus Additional Family Medical History / Comment(s): Father had carotid artery occlusion and had a procedure to remove. Father was an alcoholic. He of a [place] at 76-77yrs. Mother Family Medical History: Deep Vein Thrombosis (DVT), Pulmonary Embolus Additional Family Medical History / Comment(s): Mother at 42 yrs of age of "blood clot" in the lung and it went to the heart. General Exam - General Exam Comments Initial Comments: GENERAL: Patient is well-developed and well-nourished. Patient is nontoxic and well- hydrated and is in mild distress. ENT: Neck is soft and supple. No significant lymphadenopathy is noted. Oropharynx is clear. Moist mucous membranes. Neck has full range of motion without eliciting any pain. EYES: The sclera were anicteric and conjunctiva were pink and moist. Extraocular movements were intact and pupils were equal round and reactive to light. Eyelids were unremarkable. PULMONARY: Unlabored respirations. Good breath sounds bilaterally. No audible rales rhonchi or wheezing was noted. CARDIOVASCULAR: There is a regular rate and rhythm without any murmurs gallops or rubs. ABDOMEN: Soft and nontender with normal bowel sounds. SKIN: Skin is clear with no lesions or rashes and otherwise unremarkable. NEUROLOGIC: Patient is alert and oriented x3. Cranial nerves II through XII are grossly intact. Motor and sensory are also intact. Normal speech, volume and content. Symmetrical smile. Cerebellar exam grossly intact. MUSCULOSKELETAL: Normal extremities with adequate strength and full range of motion. No lower extremity swelling or edema. No calf tenderness. LYMPHATICS: No significant lymphadenopathy is noted PSYCHIATRIC: Normal psychiatric evaluation. Course Vital Signs 11/04/18 11/04/18 11/04/18 08:11 09:00 09:30 Temperature 98.7 F Pulse Rate 68 64 64 Respiratory 18 18 17 Rate Blood Pressure 118/105 129/105 139/91 O2 Sat by Pulse 97 94 L 95 Oximetry Disposition Clinical Impression: Vertigo Disposition: ADMITTED IP TO THIS HOSP Referrals: Chinedu Contreras MD [Primary Care Provider] - 1-2 days Time of Disposition: 09:56
--- NOTE | 2018-11-04 08:44 | CT ---
EXAMINATION TYPE: CT brain wo con DATE OF EXAM: 11/04/2018 COMPARISON: Previous study dated 10/30/2014 HISTORY: Syncopal episode CT DLP: 1079.4 mGycm Automated exposure control for dose reduction was used. FINDINGS: There are mild, generalized changes of sulcal prominence and ventriculomegaly, compatible with mild a trophic change. There is diffuse periventricular white matter lucency, compatible small vessel ischem ic change. There is no acute focal lesion, mass effect or midline shift identified. I do not see evid ence of intracranial blood. Visualized portions of the paranasal sinuses and mastoids are clear. The bony calvarium is intact. IMPRESSION: 1. NO ACUTE INTRACRANIAL ABNORMALITY. 2. MILD DEGENERATIVE CHANGE.
[2018-11-04] MEDS ORDERED: SODIUM CHLORIDE 0.9% 1,000 ML IV ONE (10:11)
[2018-11-04] MEDS ORDERED: MECLIZINE 25 MG TAB PO PRN (10:13)
[2018-11-04 11:59] LABS: Glucose,Whole Blood 112 mg/dL (75-99)
[2018-11-04] MEDS ORDERED: FUROSEMIDE 10 MG TAB PO SCH (14:30)
[2018-11-04] MEDS: ESCITALOPRAM 10 MG TAB PO SCH (15:45)
[2018-11-04] MEDS: LINAGLIPTIN 5 MG TABLET PO SCH (15:45)
[2018-11-04] MEDS: ATORVASTATIN 40 MG TAB PO SCH (15:46)
[2018-11-04] MEDS: METOPROLOL TARTRATE 25 MG TAB PO SCH (15:46)
[2018-11-04] MEDS: CYANOCOBALAMIN 500 MCG TAB PO SCH (15:46)
[2018-11-04] MEDS: ASPIRIN 81 MG PO SCH (15:47)
[2018-11-04] MEDS: LOSARTAN 50 MG TAB PO SCH (15:47)
[2018-11-04 16:03] VITALS: BMI 26.5
[2018-11-04 16:47] LABS: Glucose,Whole Blood 179 mg/dL (75-99)
[2018-11-04] MEDS ORDERED: ZOLPIDEM 5 MG TAB PO PRN (17:46)
[2018-11-04] MEDS ORDERED: ACETAMINOPHEN TAB 325 MG TAB PO PRN (18:14)
[2018-11-04] MEDS ORDERED: ALPRAZolam 0.25 MG TAB PO PRN (18:14)
[2018-11-04] MEDS ORDERED: LACTULOSE 20 GM/30 ML CUP PO PRN (18:14)
[2018-11-04] MEDS ORDERED: CALCIUM CARBONATE 500 MG CHEWABLE PO PRN (18:14)
[2018-11-04] MEDS ORDERED: MELATONIN 3 MG TABLET PO PRN (18:14)
[2018-11-04] MEDS ORDERED: ONDANSETRON 4 MG/2 ML VIAL IVP PRN (18:14)
--- NOTE | 2018-11-04 18:39 | HP ---
HISTORY AND PHYSICAL DATE OF ADMISSION: 11/04/2018 DATE OF SERVICE: 11/04/2018 PRESENTING COMPLAINT: Dizziness. HISTORY OF PRESENTING COMPLAINT: This is a very pleasant 83-year-old patient who follows with Dr. Contreras. Also follows with felt finisher, Dr. Carter and Dr. Diggs, his neurologist. Patient presented with episodes of spinning, unsteadiness. This has been going on for a long time, progressively getting worse. Patient has rather extensive medical workup done including that by Dr. Carter, that patient tells me including a stress test. Patient could not tell me if he has had a tilt-table test. Patient also is followed with Dr. Diggs who has worked him up for this conditions including an EEG, MRI, etc. What patient describes is that quite often times he will get up and then he will get dizzy and then he starts to fall over, it happen sometimes more often than not, sometimes is progressive and it varies. Patient denies any arrhythmias. Patient has had a history of stent and also had a stroke in the past. He also had abdominal aortic aneurysm which is followed by Dr. Mccarthy. Because of the symptoms happening, patient decided to present to the ER. REVIEW OF SYSTEMS: CONSTITUTIONAL: None. HEENT: As above. No headaches RESPIRATORY: None. CARDIOVASCULAR: No chest pain. GASTROINTESTINAL: None. GENITOURINARY: None. MUSCULOSKELETAL: None. DERMATOLOGICAL: None. HEMATOLOGICAL: None. LYMPHATICS: None. PSYCHIATRY: None. NEUROLOGICAL: As above. Nil focal. PAST MEDICAL HISTORY: Stroke, diabetes, hyperlipidemia, hypertension, myocardial infarction, obstructive sleep apnea, does not use CPAP, TIA's, abdominal aortic aneurysm, diverticulitis, skin cancer. PAST SURGICAL HISTORY: Adenoidectomy, cardiac cath with stent, tonsillectomy, basal cell carcinoma removed from forehead. PSYCH HISTORY: Anxiety, depression. SOCIAL HISTORY: Patient smoked a pack a day for 20 years, stopped in 1986 and has 1 drink a day. FAMILY HISTORY: Coronary artery disease and diabetes. Father is also an alcoholic. HOME MEDICATIONS: 1. Januvia 50 mg a day. 2. Glucotrol 5 mg b.i.d. 3. Lopressor 25 p.o. b.i.d. 4. Cozaar 50 mg p.o. daily. 5. Lasix 5 mg a day. 6. Lexapro 10 mg p.o. daily. 7. Vitamin B12 one thousand mcg p.o. daily. 8. Vitamin D3 one thousand units p.o. daily. 9. Lipitor 40 mg p.o. daily. 10.Aspirin 81 mg p.o. daily. ALLERGIES: None. PHYSICAL EXAMINATION: Temperature 98, pulse 69, respiration 18, blood pressure, no orthostatic earlier 149/90, pulse ox 94% on room air. GENERAL APPEARANCE: Average built, sitting up, comfortable. EYES: Pupils equal, conjunctivae are normal. HEENT: External appearance of nose and ears normal, oral cavity normal. NECK: JVD not raised. Mass not palpable. RESPIRATORY: Effort normal. LUNGS: Fair entry. CARDIOVASCULAR: First and second sounds normal, no edema. ABDOMEN: Soft, nontender. Liver and spleen not palpable. LYMPHATIC: No lymph node palpable in neck or axillae. PSYCHIATRY: Alert and oriented x3. Mood and affect normal. NEUROLOGICAL: Pupils equal. Cranial nerves grossly intact. Power and sensation grossly intact. INVESTIGATIONS: Patient did have a CT scan of the brain in the ER, it was nonspecific. In September had a CT angiogram that showed diverticulosis and infrarenal abdominal aortic aneurysm 4.5 cm; had an MRI of the brain in April, nonspecific white matter changes. A 2D echocardiogram from last year showing preserved LV function. ASSESSMENT: This is a patient who has been progressive dizziness, symptomatic, coming on for quite some time. Currently not orthostatic, has had extensive workup done by his felt finisher Dr. Carter and also his neurologist Dr. Diggs. I do not have the details of the same. At this point, cannot determine if the patient has had a event monitor and may require the same and also will probably need a tilt-table test. Looks like he has other quite extensive neurological workup too. Will keep the patient on telemetry to rule out the same. If not, patient will have to follow up with his neurologist and Dr. Carter for further outpatient workup. At this point will give OLGA mariam and get opinion from Dr. Carter's colleague, Dr. Flores. Care was discussed with the patient. MMODL / IJN: [id number] /
[2018-11-04] MEDS: ENOXAPARIN 40 MG/0.4 ML SYRINGE SQ SCH (18:55)
[2018-11-04 20:05] LABS: Glucose,Whole Blood 205 mg/dL (75-99)
[2018-11-04] MEDS: glipiZIDE 5 MG TAB PO SCH (20:31)
[2018-11-05] MEDS: METOPROLOL TARTRATE 25 MG TAB PO SCH ×2 (00:52→09:23)
[2018-11-05 06:35] LABS: Basophils % (A) 0 %; Eosinophils # (A) 0.1 k/uL (0-0.7); Eosinophils % (A) 2 %; HCT 37.4 % (39.0-53.0); HGB 12.4 gm/dL (13.0-17.5); Lymphocytes # (A) 1.8 k/uL (1.0-4.8); Lymphocytes % (A) 25 %; MCH 30.6 pg (25.0-35.0); MCHC 33.2 g/dL (31.0-37.0); Mean Platelet Volume 6.7; Monocytes # (A) 0.6 k/uL (0-1.0); Monocytes % (A) 8 %; Neutrophils # (A) 4.5 k/uL (1.3-7.7); Neutrophils % (A) 62 %; Platelet Count 236 k/uL (150-450); RBC 4.07 m/uL (4.30-5.90); RDW 14.4 % (11.5-15.5); WBC 7.3 k/uL (3.8-10.6)
[2018-11-05 06:38] LABS: Glucose,Whole Blood 116 mg/dL (75-99)
[2018-11-05 06:47] LABS: Calcium 8.8 mg/dL (8.4-10.2)
[2018-11-05 07:20] VITALS: RESP 18
[2018-11-05] MEDS: ESCITALOPRAM 10 MG TAB PO SCH (09:23)
[2018-11-05] MEDS: LINAGLIPTIN 5 MG TABLET PO SCH (09:23)
[2018-11-05] MEDS: LOSARTAN 50 MG TAB PO SCH (09:23)
[2018-11-05] MEDS: glipiZIDE 5 MG TAB PO SCH (09:23)
[2018-11-05] MEDS: ASPIRIN 81 MG PO SCH (09:23)
[2018-11-05] MEDS: ATORVASTATIN 40 MG TAB PO SCH (09:23)
[2018-11-05] MEDS: CYANOCOBALAMIN 500 MCG TAB PO SCH (09:24)
[2018-11-05] MEDS: ENOXAPARIN 40 MG/0.4 ML SYRINGE SQ SCH (09:24)
[2018-11-05 11:33] VITALS: BP 108/75; PULSE 59; TEMP 97.3
[2018-11-05 11:41] LABS: Glucose,Whole Blood 167 mg/dL (75-99)
[2018-11-05] MEDS ORDERED: MECLIZINE 25 MG TAB PO PRN (11:57)
--- NOTE | 2018-11-05 12:06 | P.CRDCN ---
History of Present Illness History of present illness: This is a pleasant 83-year-old male past medical history significant for coronary artery disease status post recent angioplasty of the OM branch in March 2017, diabetes mellitus, dyslipidemia, hypertension, former nicotine dependence and abdominal aortic aneurysm. He follows with Dr. Carter in the office. He's been seen in consultation for dizziness. He was transferred [facility]. He states last evening when getting up to go to the bathroom she had difficulty catching his balance. It felt like the room was spinning with mild nausea and no vomiting. No chest pain, shortness of breath or palpitations. This lasted for a few hours. Upon arrival to [facility] he was given Antivert which relieved his symptoms. He is seen and examined resting comfortably in bed in no acute distress. He denies any further symptoms of dizziness. Orthostatic vital signs obtained on admission are negative for any acute change. EKG reveals sinus bradycardia heart rate 57. CT obtained at [facility] reveals lower abdominal aortic aneurysm 5.[address] brain negative for an acute intracranial process. Laboratory data reviewed, WBC 7.3, hemoglobin 12.4, platelets 236, sodium 137, potassium 5, creatinine 1.42, cardiac enzymes obtained at [facility] negative 1. Medications include aspirin 81 mg daily, atorvastatin 40 mg daily, Lasix 5 mg when necessary, losartan 50 mg daily and Lopressor 25 mg twice a day. Most recent stress test performed in the office June 2018 was a Cardiolite stress test which was negative for reversible ischemia with evidence of fixed inferior and inferior lateral defect suggestive of soft tissue attenuation. Most recent echocardiogram obtained in the office June 2018 reveals preserved left ventricular systolic function with ejection fraction 55-60% with mild to moderate mitral regurgitation and mild tricuspid regurgitation. At the time of my exam: CONSTITUTIONAL: Denies fever. Denies chills. EYES: Denies blurred vision. Denies vision changes. Denies eye pain. EARS, NOSE, MOUTH & THROAT: Denies headache. Denies sore throat. Denies ear pain. CARDIOVASCULAR: Denies chest pain. Denies shortness of breath. Denies orthopnea. Denies PND. Denies palpitations. RESPIRATORY: Denies cough. GASTROINTESTINAL: Denies abdominal pain. Denies diarrhea. Denies constipation. Denies nausea. Denies vomiting. MUSCULOSKELETAL: Denies myalgias. INTEGUMENTARY: Denies pruitis. Denies rash. NEUROLOGIC: Denies numbness. Denies tingling. Denies weakness. PSYCHIATRIC: Denies anxiety. Denies depression. ENDOCRINE: Denies fatigue. Denies weight change. Denies polydipsia. Denies polyurina. GENITOURINARY: Denies burning, hematuria or urgency with micturation. HEMATOLOGIC: Denies history of anemia. Denies bleeding. Blood pressure 108/75 heart rate 59 afebrile maintaining oxygen saturation on room air. GENERAL: This is a 83-year-old occasion male in no apparent distress at the time of my examination. HEENT: Head is atraumatic, normocephalic. Pupils are equal, round. Sclerae anicteric. Conjunctivae are clear. Mucous membranes of the mouth are moist. Neck is supple. There is no jugular venous distention. No carotid bruit is heard. LUNGS: Clear to auscultation no wheezes, rales or rhonchi. No chest wall tenderness is noted on palpation or with deep breathing. HEART: Regular rate and rhythm with systolic ejection murmur at the left lower sternal border, no rubs or gallops. S1 and S2 heard. ABDOMEN: Soft, nontender. Bowel sounds are heard. No organomegaly noted. EXTREMITIES: No evidence of peripheral edema and no calf tenderness noted. VASCULAR: Radial and dorsalis pedis pulses palpated, no evidence of clubbing. NEUROLOGIC: Patient is awake, alert and oriented x3. ASSESSMENT Dizziness suggestive of vertigo, relieved by Antivert. History of coronary artery disease status post angioplasty with recent stress test in the office revealing no evidence of reversible ischemia Abdominal aortic aneurysm Hypertension Dyslipidemia Diabetes mellitus PLAN Add Antivert 25 mg 3 times a day when necessary for symptomatic vertigo. Consider vascular evaluation regarding the abdominal aortic aneurysm. Thank you kindly for this consultation. Follow up with Dr. Carter upon discharge. The above impression and plan of care have been discussed and directed by the signing physician. Olga Lidia Ro, nurse practitioner, acting as scribe for signing physician. Past Medical History Past Medical History: Cancer, CVA/TIA, Diabetes Mellitus, Hyperlipidemia, Hypertension, Myocardial Infarction (SC), Sleep Apnea/CPAP/BIPAP, Vascular Disorder Additional Past Medical History / Comment(s): hx sleep apnea-no cpap, hx migraines, TIA 10/2014- no effects, AAA followed by Dr. Dencklau, diverticulitis , hx skin cancer Last Myocardial Infarction Date:: 04/17/17 History of Any Multi-Drug Resistant Organisms: None Reported Past Surgical History: Adenoidectomy, Heart Catheterization With Stent, Tonsillectomy Additional Past Surgical History / Comment(s): colonoscopy, basal cell cancer removed from forehead, one cardiac stent Past Anesthesia/Blood Transfusion Reactions: Motion Sickness Additional Past Anesthesia/Blood Transfusion Reaction / Comment(s): . Date of Last Stent Placement:: 03/2017 Past Psychological History: Anxiety, Depression Additional Psychological History / Comment(s): . Smoking Status: Former smoker Past Alcohol Use History: Occasional Additional Past Alcohol Use History / Comment(s): quit smoking 1986, smoked for 20 yrs, 1 PPD, one alcoholic drink every night Past Drug Use History: None Reported - Past Family History Brother(s) Family Medical History: No Reported History Sister(s) Family Medical History: No Reported History Son(s) Family Medical History: No Reported History Father Family Medical History: Coronary Artery Disease (CAD), Diabetes Mellitus Additional Family Medical History / Comment(s): Father had carotid artery occlusion and had a procedure to remove. Father was an alcoholic. He of a SC at 76-77yrs. Mother Family Medical History: Deep Vein Thrombosis (DVT), Pulmonary Embolus Additional Family Medical History / Comment(s): Mother at 42 yrs of age of "blood clot" in the lung and it went to the heart. Medications and Allergies Home Medications Medication Instructions Recorded Confirmed Type glipiZIDE [Glucotrol] 5 mg PO BID 10/30/14 11/04/18 History Cyanocobalamin (Vitamin B-12) 1,000 mcg PO DAILY 04/17/17 11/04/18 History [Vitamin B-12] Aspirin 81 mg PO DAILY 04/20/17 11/04/18 Rx Metoprolol Tartrate [Lopressor] 25 mg PO BID #60 tab 04/20/17 11/04/18 Rx sitaGLIPtin [Januvia] 50 mg PO DAILY 07/18/17 11/04/18 History Atorvastatin [Lipitor] 40 mg PO DAILY 11/04/18 11/04/18 History Cholecalciferol [Vitamin D3] 1,000 unit PO DAILY 11/04/18 11/04/18 History Escitalopram [Lexapro] 10 mg PO DAILY 11/04/18 11/04/18 History Furosemide [Lasix] 5 mg PO DAILY 11/04/18 11/04/18 History Losartan [Cozaar] 50 mg PO DAILY 11/04/18 11/04/18 History Allergies Allergy/AdvReac Type Severity Reaction Status Date / Time No Known Allergies Allergy Verified 11/04/18 10:30 Physical Exam Vitals: Vital Signs Temp Pulse Pulse Pulse Pulse Pulse Resp 11/05/18 07:15 98.5 F 58 L 18 11/05/18 04:00 98.0 F 62 69 73 54 L 15 11/05/18 00:51 67 11/05/18 00:00 62 69 73 59 L 14 11/04/18 23:43 98.3 F 59 L 14 11/04/18 20:00 98.2 F 62 69 73 52 L 16 11/04/18 16:00 18 11/04/18 15:57 98.0 F 69 73 66 18 11/04/18 12:00 16 11/04/18 11:04 97.6 F 62 18 11/04/18 10:30 98.7 F 60 16 11/04/18 10:00 69 22 11/04/18 09:30 64 17 11/04/18 09:00 64 18 11/04/18 08:11 98.7 F 68 18 BP BP BP BP BP Pulse Ox 11/05/18 07:15 127/81 98 11/05/18 04:00 142/84 97 11/05/18 00:51 144/83 11/05/18 00:00 11/04/18 23:43 126/73 100 11/04/18 20:00 122/75 95 11/04/18 16:00 11/04/18 15:57 120/80 112/76 114/73 94 L 11/04/18 12:00 11/04/18 11:04 149/90 95 11/04/18 10:30 137/96 97 11/04/18 10:00 157/100 95 11/04/18 09:30 139/91 95 11/04/18 09:00 129/105 94 L 11/04/18 08:11 118/105 97 Intake and Output 11/04/18 11/05/18 11/05/18 22:59 06:59 14:59 Intake Total 330 Balance 330 Intake: Oral 330 Other: Voiding Method Toilet Toilet # Voids 1 2 Weight 79.2 kg 79.2 kg Results 11/05/18 05:54 11/05/18 05:54 CBC 11/05/18 Range/Units 05:54 WBC 7.3 (3.8-10.6) k/uL RBC 4.07 L (4.30-5.90) m/uL Hgb 12.4 L (13.0-17.5) gm/dL Hct 37.4 L (39.0-53.0) % Plt Count 236 (150-450) k/uL Comprehensive Metabolic Panel 11/05/18 Range/Units 05:54 Sodium 137 (137-145) mmol/L Potassium 5.0 (3.5-5.1) mmol/L Chloride 104 (98-107) mmol/L Carbon Dioxide 28 (22-30) mmol/L BUN 20 (9-20) mg/dL Creatinine 1.42 H (0.66-1.25) mg/dL Glucose 103 H (74-99) mg/dL Calcium 8.8 (8.4-10.2) mg/dL Current Medications Generic Name Dose Route Start Last Admin Trade Name Freq PRN Reason Stop Dose Admin Acetaminophen 650 mg 11/04/18 18:14 Tylenol Tab PO Q6HR PRN Mild Pain or Fever > 100.5 Alprazolam 0.25 mg 11/04/18 18:14 Xanax PO Q6HR PRN Anxiety Aspirin 81 mg 11/04/18 14:30 11/04/18 15:47 Aspirin PO 81 mg DAILY KAMRAN Administration Atorvastatin Calcium 40 mg 11/04/18 14:30 11/04/18 15:46 Lipitor PO 40 mg DAILY KAMRAN Administration Calcium Carbonate/Glycine 1,000 mg 11/04/18 18:14 Tums PO Q4HR PRN Dyspepsia Cyanocobalamin 1,000 mcg 11/04/18 14:30 11/04/18 15:46 Vitamin B-12 PO 1,000 mcg DAILY KAMRAN Administration Enoxaparin Sodium 40 mg 11/04/18 18:30 11/04/18 18:55 Lovenox SQ 40 mg DAILY KAMRAN Administration Escitalopram Oxalate 10 mg 11/04/18 14:30 11/04/18 15:45 Lexapro PO 10 mg DAILY KAMRAN Administration Furosemide 5 mg 11/04/18 14:30 11/04/18 15:45 Lasix PO 5 mg DAILY KAMRAN Administration Glipizide 5 mg 11/04/18 21:00 11/04/18 20:31 Glucotrol PO 5 mg BID KAMRAN Administration Lactulose 20 gm 11/04/18 18:14 Cephulac PO DAILY PRN Constipation Linagliptin 5 mg 11/04/18 14:30 11/04/18 15:45 Tradjenta PO 5 mg DAILY KAMRAN Administration Losartan Potassium 50 mg 11/04/18 14:30 11/04/18 15:47 Cozaar PO 50 mg DAILY KAMRAN Administration Melatonin 3 mg 11/04/18 18:14 Melatonin PO HS PRN Insomnia Metoprolol Tartrate 25 mg 11/04/18 14:17 11/05/18 00:52 Lopressor PO 25 mg BID KAMRAN Administration Ondansetron HCl 4 mg 11/04/18 18:14 Zofran IVP Q8HR PRN Nausea And Vomiting Zolpidem Tartrate 5 mg 11/04/18 17:46 Ambien PO HS PRN Insomnia Intake and Output 11/04/18 11/05/18 11/05/18 22:59 06:59 14:59 Intake Total 330 Balance 330 Intake: Oral 330 Other: Voiding Method Toilet Toilet # Voids 1 2 Weight 79.2 kg 79.2 kg 11/05/18 05:54 11/05/18 05:54
[2018-11-05 16:48] LABS: Glucose,Whole Blood 89 mg/dL (75-99)
--- NOTE | 2018-11-06 01:54 | HP ---
HISTORY AND PHYSICAL ADDENDUM: DATE OF ADMISSION: 11/04/2018 DATE OF SERVICE: 11/04/2018. ASSESSMENT: 1. #2. Diabetes mellitus type 2. 2. Hyperlipidemia. 3. Essential hypertension. 4. Coronary artery disease, history of myocardial infarction. 5. Obstructive sleep apnea does not use CPAP machine. 6. Abdominal aortic aneurysm being followed by Dr. Mccarthy. MMVIOLET / JOCELINEN: [id number] /
--- NOTE | 2018-11-06 06:25 | DS ---
DISCHARGE SUMMARY DATE OF ADMISSION: 11/04/2018 DATE OF DISCHARGE: 11/05/2018 FINAL DIAGNOSES: 1. Dizziness, multifactorial, needs further workup as an outpatient. Could be from autonomic dysfunction. 2. Diabetes mellitus type 2 on oral hypoglycemic. 3. Hyperlipidemia. 4. Essential hypertension. 5. Coronary artery disease, prior history of myocardial infarction. 6. Obstructive sleep apnea, does not use CPAP machine. 7. Abdominal aortic aneurysm, being followed by Dr. Mccarthy. HOSPITAL COURSE: This patient presented with episodes of dizziness, which has actually been coming on for quite some time. Patient has been worked up by Dr. Diggs and Dr. Carter in the past. The patient's recent EEG, MRI have been negative. There is no arrhythmia noted here. I did discuss with the patient that he will need a tilt-table test that can be arranged through his client hr manager Dr. Cartre and he also should follow up with Dr. Diggs. The patient's abdominal aortic aneurysm is being followed by Dr. Mccarthy. The patient was seen by Dr. Leon Flores from Cardiology. The patient was told to do things slowly. PHYSICAL EXAMINATION: On examination, temperature 97.3, pulse 59, respiratory 18, blood pressure 108/75, pulse ox 96% on room air. Lungs are clear. CARDIOVASCULAR: First and second sounds normal. LABS: BUN 20, creatinine 1.42. DISCHARGE MEDICATIONS: 1. Glucotrol 5 mg b.i.d. 2. Vitamin B12, 1000 mcg p.o. daily. 3. Aspirin 81 mg p.o. daily. 4. Lopressor 25 mg b.i.d. 5. Januvia 50 mg p.o. daily. 6. Lipitor 40 mg p.o. daily. 7. Vitamin D3, 1000 units p.o. daily. 8. Lexapro 10 mg p.o. daily. 9. Cozaar 50 mg p.o. daily. 10.Antivert 25 mg p.o. t.i.d. p.r.n. Follow up with Dr. Carter in 1 week. Follow up with Dr. Diggs in 1 week. Follow up with Dr. Contreras in 1 week. Fall precautions. MMODL / IJN: [id number] /
== END 2018-11-05 17:35 | disposition home or self-care (01) ==
LOC: EC 07:57 → 1SOBS 10:13
PROVIDERS: ADMIT Hospitalist; ATTEND Hospitalist
DX: R42 Dizziness and giddiness (principal); I25.10 Atherosclerotic heart disease of native coronary artery without angina pectoris; E11.9 Type 2 diabetes mellitus without complications; G47.33 Obstructive sleep apnea (adult) (pediatric); E78.5 Hyperlipidemia, unspecified; I10 Essential (primary) hypertension; I71.4 Abdominal aortic aneurysm, without rupture; I25.2 Old myocardial infarction; Z79.899 Other long term (current) drug therapy; Z79.82 Long term (current) use of aspirin; Z79.84 Long term (current) use of oral hypoglycemic drugs; Z79.02 Long term (current) use of antithrombotics/antiplatelets; Z95.5 Presence of coronary angioplasty implant and graft; Z85.828 Personal history of other malignant neoplasm of skin; Z87.891 Personal history of nicotine dependence; Z86.73 Personal history of transient ischemic attack (TIA), and cerebral infarction without residual deficits; Z82.49 Family history of ischemic heart disease and other diseases of the circulatory system; Z83.3 Family history of diabetes mellitus
CPT/HCPCS: 96360; 96361 ×2; 96372 ×2; 99285; 80048; 85025; 70450; G0378 ×2; J1650 ×2

== ENCOUNTER → 2018-11-29 | Outpatient (CLI) | payer MEDICARE, BC ==
[2018-11-29 12:36] LABS: Basophils # (A) 0.1 k/uL (0-0.2); Basophils % (A) 1 %; Eosinophils # (A) 0.1 k/uL (0-0.7); Eosinophils % (A) 1 %; HCT 41.6 % (39.0-53.0); HGB 13.4 gm/dL (13.0-17.5); Lymphocytes # (A) 1.8 k/uL (1.0-4.8); Lymphocytes % (A) 18 %; MCH 30.5 pg (25.0-35.0); MCHC 32.2 g/dL (31.0-37.0); MCV 94.8 fL (80.0-100.0); Mean Platelet Volume 6.7; Monocytes # (A) 0.5 k/uL (0-1.0); Monocytes % (A) 5 %; Neutrophils # (A) 7.2 k/uL (1.3-7.7); Neutrophils % (A) 74 %; Platelet Count 309 k/uL (150-450); RBC 4.39 m/uL (4.30-5.90); RDW 13.7 % (11.5-15.5); WBC 9.8 k/uL (3.8-10.6)
[2018-11-29 12:40] LABS: Appearance,Urine Clear (Clear); Bacteria,Urine Rare /hpf; Bilirubin,Urine Negative (Negative); Blood,Urine Negative (Negative); Color,Urine Dark Yellow; Glucose,Urine (UA) Negative (Negative); Hyaline Casts,Urine 3 /lpf (0-2); Ketones,Urine Trace (Negative); Leukocyte Esterase,Urine Negative (Negative); Mucus,Urine Occasional /hpf; Nitrite,Urine Negative (Negative); PH, Urine 5.5 (5.0-8.0); Protein,Urine 1+ (Negative); RBC,Urine 2 /hpf (0-5); Specific Gravity,Urine 1.027 (1.001-1.035); WBC,Urine 3 /hpf (0-5)
[2018-11-29 12:53] LABS: Potassium 5.1 mmol/L (3.5-5.1)
== END | disposition home or self-care (01) ==
LOC: LABPAT 11:13
PROVIDERS: ATTEND Surgery
DX: Z01.812 Encounter for preprocedural laboratory examination (principal); I71.4 Abdominal aortic aneurysm, without rupture
CPT/HCPCS: 36415; 80051; 81001; 82565; 84520; 85025

== ENCOUNTER 2018-12-07 06:00 | Inpatient (IN) | payer MEDICARE, BC ==
[2018-12-01 10:57] VITALS: BMI 25.8
[~2018-12-07 06:00] MED LIST changes: -LACTATED RINGERS 1,000 ML IV SCH; +LIDOCAINE 1% 20 ML VIAL (10MG/ML) FOR IV START INTRADERMA PRN; +MIDAZOLAM (PF) 2 MG/2 ML VIAL IV PRN; +ONDANSETRON 4 MG/2 ML VIAL IVP ONE; +fentaNYL (PF) 50 MCG/ML 2 ML AMP IV PRN
[2018-12-07] MEDS ORDERED: DEXAMETHASONE SOD PHOSPHATE 10 MG/ML 1 ML VIAL IV ONE (06:36)
[2018-12-07] MEDS ORDERED: LIDOCAINE 1% 20 ML VIAL (10MG/ML) FOR IV START INTRADERMA PRN (06:36)
[2018-12-07] MEDS ORDERED: ONDANSETRON 4 MG/2 ML VIAL IVP ONE (06:36)
[2018-12-07] MEDS ORDERED: SODIUM CHLORIDE 0.9% 1,000 ML in EMPTY BAG 1 BAG IV ONE (06:36)
[2018-12-07 07:08] LABS: Glucose,Whole Blood 156 mg/dL (75-99)
[2018-12-07] MEDS ORDERED: LIDOCAINE 1% INJ 10MG/ML (20 ML MDV) ONE (08:15)
[2018-12-07] MEDS ORDERED: PROPOFOL 10 MG/ML 20 ML VIAL IV ONE (08:15)
[2018-12-07] MEDS ORDERED: fentaNYL (PF) 50 MCG/ML 2 ML AMP ONE (08:15)
[2018-12-07] MEDS ORDERED: HEPARIN SODIUM,PORCINE 10,000 UNIT/ML 1 ML VIAL ONE (08:15)
[2018-12-07] MEDS ORDERED: PHENYLEPHRINE-0.9% NACL SYG 1 MG/10 ML SYRINGE ONE (08:15)
[2018-12-07] MEDS ORDERED: ROCURONIUM BROMIDE 10 MG/ML 10 ML VIAL IV ONE (08:15)
[2018-12-07] MEDS ORDERED: NEOSTIGMINE 1 MG/ML 10 ML VIAL ONE (08:15)
[2018-12-07] MEDS ORDERED: ePHEDrine SULFATE/0.9% NACL/PF 50 MG/5 ML SYRINGE IV ONE (08:15)
[2018-12-07] MEDS ORDERED: PROTAMINE SULFATE 10 MG/ML 5 ML VIAL IV ONE (08:15)
[2018-12-07] MEDS ORDERED: GLYCOPYRROLATE 0.2 MG/ML 2 ML VIAL ONE (08:15)
[2018-12-07] MEDS ORDERED: SUCCINYLCHOLINE CHLORIDE 100 MG/5 ML SYR IV ONE (08:15)
[2018-12-07] MEDS ORDERED: MIDAZOLAM 2 MG/2 ML VIAL ONE (08:15)
[2018-12-07] MEDS ORDERED: ceFAZolin IN SWFI 2 GM/20 ML SYRINGE IVP STA (08:53)
[2018-12-07] MEDS ORDERED: LIDOCAINE 1% INJ 10MG/ML (20 ML MDV) SQ ONE (09:06)
[2018-12-07] MEDS: DEXAMETHASONE SOD PHOSPHATE 10 MG/ML 1 ML VIAL IV ONE ×2 (09:58→14:38)
[2018-12-07] MEDS ORDERED: IOPAMIDOL-250 100ML BTL INTRAARTER ONE (10:48)
[2018-12-07] MEDS ORDERED: MAG HYDROX/AL HYDROX/SIMETH 30 ML CUP PO PRN (11:11)
[2018-12-07] MEDS ORDERED: SODIUM CHLORIDE 0.9% 1,000 ML IV SCH (11:15)
[2018-12-07 11:55] LABS: Glucose,Whole Blood 178 mg/dL (75-99)
--- NOTE | 2018-12-07 12:24 | P.OP ---
Date of Procedure: 12/07/18 Preoperative Diagnosis: 6.5 cm infrarenal abdominal aortic aneurysm Postoperative Diagnosis: 6.5 cm infrarenal abdominal aortic aneurysm Procedure(s) Performed: Stent graft repair infrarenal abdominal aortic aneurysm utilizing percutaneous approach Anesthesia: JUDITH Surgeon: Daren Palacios Estimated Blood Loss (ml): 100 Pathology: none sent Condition: stable Disposition: ICU Indications for Procedure: 6.5 cm infrarenal abdominal aortic aneurysm Operative Findings: 6.5 cm infrarenal abdominal aortic aneurysm Description of Procedure: Patient was brought to the endovascular suite. Patient was administered general endotracheal anesthesia delivered by the department of anesthesiology. The patient's abdomen and inguinal areas and anterior thigh areas were sterilely prepped and draped in the usual manner on a bilateral basis. The patient did receive intravenously administered antibiotics in prophylactic therapy. Aceves catheter was placed to gravity drainage prior to prepping and draping. Utilizing ultrasound the right common femoral artery was identified. Multipurpose needle was utilized to cannulate the artery with the aid of ultrasound guidance. Once cannulated Softip guidewire is advanced into the artery. The needle was withdrawn and a 6-[place] sheath was placed. Guidewire was advanced through the sheath and fluoroscopy demonstrated the guidewire to be in the abdominal aorta. The sheath was withdrawn and 2 Perclose devices were then deployed one at the 2 o'clock position and the other at the 10 o' clock position. Once successfully deployed in H [place] sheath was advanced over the guidewire. Hemostasis was achieved. A similar procedure was performed on the contralateral side. ACTs were drawn after heparin was administered, with highest ACT noted to be 272 seconds. A Lunderquist guidewire was advanced under fluoroscopic guidance from the right side and position in the aortic knob. A Glidewire was advanced from the left femoral sheath over which a marker pigtail catheter was advanced and positioned at the L1 level. Angiogram was performed demonstrating location of the renal artery origins bilaterally. A Medtronic Endurate 2 main body measuring 25 x 14 x 103 mm was selected. The sheath in the right femoral artery was exchanged for the delivery catheter of the main body. The anal body was deployed with its most proximal portion just below the origin of the lowest renal artery. From the left the marker patent was exchanged for a angled glide catheter. [place] catheter and guidewire combinations burden were utilized to cannulate the gait. Position of the wire was confirmed to be within the's stent graft body. A Lunderquist wire was advanced through the catheter and positioned proximally in the aortic knob. The marker pigtail catheter was then readvanced over the guidewire and through the sheath a left iliac angiogram was performed with identification of the origin of the internal iliac artery. An Endurate stent graft limb 16 x 28 x 56 mm was selected. The pigtail catheter was withdrawn as was the sheath and over the Lunderquist guidewire this the stent graft limb was advanced under fluoroscopic guidance and deployed with at least 3 cm of overlap. The pigtail catheter was then advanced through the right sheath over the Lunderquist guidewire. Right iliac angiogram was performed with the noting of the origin of the internal iliac artery. An Endurate 2 stent graft limb measuring 16 x 24 x 156 millimeters was selected. The delivery system of the main body was removed and a 16-[place] sheath was placed. Through this sheath the stent graft limb was then advanced over the guidewire and fully deployed again with at least 3 cm of overlap. The entirety of the stent graft system was then balloon dilated assuring good opposition proximally and distally as well as the areas of graft overlap. Once this was performed the pigtail catheter was readvanced over the guidewire and the guidewire was withdrawn. Completion angiogram was performed. This demonstrated good position of the stent graft system without evidence of endoleak. The patient received 25 mg of protamine to help reduce the heparin effect. With the above findings noted utilizing the previously placed Perclose devices the puncture arteriotomy on each side was then successfully closed. Appropriate dressings were applied. Patient tolerated procedure well awoke without apparent complication was transferred to recovery area in satisfactory and stable condition. Total fluoroscopy time 21.3 minutes. Total interest volume 100 mL of Isovue 250. Total estimated blood loss 100 mL's.
--- NOTE | 2018-12-07 14:17 | IR ---
Fluoroscopy HISTORY: Abdominal aortic aneurysm 21.3 minutes fluoroscopy time supplied to the referring clinician. 118 intraoperative C-arm images d ocument the procedure. See dictated report from vascular surgery.
[2018-12-07] MEDS: LACTATED RINGERS 1,000 ML IV SCH ×2 (14:44→14:45)
[2018-12-07] MEDS: HYDROcodone/APAP 5-325MG 1 EACH TAB PO PRN ×2 (15:03→20:56)
--- NOTE | 2018-12-07 17:21 | P.CNPUL ---
History of Present Illness Consult date: 12/07/18 Requesting physician: Daren Palacios Reason for consult: other Chief complaint: Abdominal aortic aneurysm, status post percutaneous repair, and stent graft History of present illness: This 83-year-old white male patient of Dr. Contreras, with past medical history of hypertension, hyperlipidemia, and diabetes mellitus type 2, coronary artery disease, history of myocardial infarction, obstructive sleep apnea not on CPAP therapy. Patient has a abdominal aortic aneurysm which was being followed by Dr. Mccarthy for a period of several years, and recently was found to be enlarged to a point of 6.5 cm. Patient was recommended surgical intervention, and today on 12/07/2018 underwent stent graft repair of infrarenal abdominal aortic aneurysm utilizing percutaneous approach. Following the procedure patient was transferred to the intensive care unit for close monitoring, we're seeing this patient in the ICU, resting comfortably in bed, in slight reverse Trendelenburg position. No distress, no difficulty breathing, vital signs are stable, in sinus mechanism with a controlled rate, byfemoral incision is covered with surgical dressings, clean dry and intact, soft. Pulse ox is 96% on 2 L per nasal cannula, patient is afebrile. We're consulted for ICU management. Review of Systems All systems: negative Constitutional: Denies chills, Denies fever Eyes: denies blurred vision, denies pain Ears, nose, mouth and throat: Denies headache, Denies sore throat Cardiovascular: Denies chest pain, Denies shortness of breath Respiratory: Denies cough Gastrointestinal: Denies abdominal pain, Denies diarrhea, Denies nausea, Denies vomiting Musculoskeletal: Denies myalgias Integumentary: Denies pruritus, Denies rash Neurological: Denies numbness, Denies weakness Psychiatric: Denies anxiety, Denies depression Endocrine: Denies fatigue, Denies weight change Past Medical History Past Medical History: Cancer, CVA/TIA, Diabetes Mellitus, Hyperlipidemia, Hypertension, Myocardial Infarction ([place]), Prostate Disorder, Sleep Apnea/CPAP/ BIPAP Additional Past Medical History / Comment(s): hx sleep apnea-no cpap, hx migraines, TIA 10/2014- no effects, AAA followed by Dr. Mccarthy, diverticulitis , hx skin cancer Last Myocardial Infarction Date:: 04/17/17 History of Any Multi-Drug Resistant Organisms: None Reported Past Surgical History: Adenoidectomy, Heart Catheterization With Stent, Tonsillectomy Additional Past Surgical History / Comment(s): colonoscopy, basal cell cancer removed from forehead, one cardiac stent, BILATERAL CATARACT SURGERY Past Anesthesia/Blood Transfusion Reactions: Motion Sickness Additional Past Anesthesia/Blood Transfusion Reaction / Comment(s): . Date of Last Stent Placement:: 03/2017 Past Psychological History: Anxiety, Depression Additional Psychological History / Comment(s): . Smoking Status: Former smoker Past Alcohol Use History: Occasional Additional Past Alcohol Use History / Comment(s): STARTED SMOKING AT AGE 23 quit smoking 1986, smokes 1 PPD, Past Drug Use History: None Reported - Past Family History Brother(s) Family Medical History: No Reported History Sister(s) Family Medical History: No Reported History Son(s) Family Medical History: No Reported History Father Family Medical History: Coronary Artery Disease (CAD), Diabetes Mellitus Additional Family Medical History / Comment(s): Father had carotid artery occlusion and had a procedure to remove. Father was an alcoholic. He of a [place] at 76-77yrs. Mother Family Medical History: Deep Vein Thrombosis (DVT), Pulmonary Embolus Additional Family Medical History / Comment(s): Mother at 42 yrs of age of "blood clot" in the lung and it went to the heart. Medications and Allergies Home Medications Medication Instructions Recorded Confirmed Type glipiZIDE [Glucotrol] 5 mg PO BID 10/30/14 12/07/18 History Cyanocobalamin (Vitamin B-12) 5,000 mcg PO DAILY 04/17/17 12/07/18 History [Vitamin B-12] Aspirin 81 mg PO DAILY 04/20/17 12/07/18 Rx Metoprolol Tartrate [Lopressor] 25 mg PO BID #60 tab 04/20/17 12/07/18 Rx sitaGLIPtin [Januvia] 50 mg PO DAILY 07/18/17 12/07/18 History Atorvastatin [Lipitor] 40 mg PO DAILY 11/04/18 12/07/18 History Cholecalciferol [Vitamin D3] 5,000 unit PO DAILY 11/04/18 12/07/18 History Escitalopram [Lexapro] 10 mg PO DAILY 11/04/18 12/07/18 History Losartan [Cozaar] 50 mg PO DAILY 11/04/18 12/07/18 History Meclizine [Antivert] 25 mg PO TID PRN #14 tab 11/05/18 12/07/18 Rx ALPRAZolam [Xanax] 0.25 mg PO Q8HR PRN 12/01/18 12/07/18 History Finasteride [Proscar] 5 mg PO DAILY 12/01/18 12/07/18 History Allergies Allergy/AdvReac Type Severity Reaction Status Date / Time No Known Allergies Allergy Verified 12/07/18 14:39 Physical Exam Vitals: Vital Signs Temp Pulse Pulse Pulse Resp BP BP 12/07/18 16:30 70 18 136/80 12/07/18 16:00 97.6 F 75 73 16 120/77 12/07/18 15:30 66 16 116/76 12/07/18 15:00 67 18 116/79 12/07/18 14:30 70 7 L 108/67 12/07/18 14:00 75 16 112/67 12/07/18 13:30 64 17 117/70 12/07/18 13:00 64 18 119/74 12/07/18 12:30 95.0 F L 63 9 L 115/71 12/07/18 12:08 69 9 L 12/07/18 11:46 73 16 125/75 12/07/18 11:30 72 16 134/77 12/07/18 11:23 97.0 F L 77 14 178/77 12/07/18 06:30 97.5 F L 60 18 133/80 Pulse Ox 12/07/18 16:30 12/07/18 16:00 96 12/07/18 15:30 97 12/07/18 15:00 96 12/07/18 14:30 95 12/07/18 14:00 95 12/07/18 13:30 93 L 12/07/18 13:00 94 L 12/07/18 12:30 94 L 12/07/18 12:08 12/07/18 11:46 98 12/07/18 11:30 100 12/07/18 11:23 100 12/07/18 06:30 97 Intake and Output 12/07/18 12/07/18 12/07/18 06:59 14:59 22:59 Intake Total 200 100 100 Output Total 150 75 Balance 200 -50 25 Intake: IV 200 0 Intake, IV Titration 100 100 Amount Sodium Chloride 0.9% 1, 100 100 000 ml @ As Directed IV . Q0M [facility] Rx#:[id number] Output: Urine 150 75 Other: Voiding Method Indwelling Catheter GENERAL EXAM: Alert, pleasant, 83-year-old white male, resting in bed, currently on 2 L per nasal cannula, in slight reverse Trendelenburg position comfortable in no apparent distress. HEAD: Normocephalic/atraumatic. EYES: Normal reaction of pupils, equal size. Conjunctiva pink, sclera white. NOSE: Clear with pink turbinates. THROAT: No erythema or exudates. NECK: No masses, no JVD, no thyroid enlargement, no adenopathy. CHEST: No chest wall deformity. Symmetrical expansion. LUNGS: Equal air entry with no crackles, wheeze, rhonchi or dullness. CVS: Regular rate and rhythm, normal S1 and S2, no gallops, no murmurs, no rubs ABDOMEN: Soft, nontender. No hepatosplenomegaly, normal bowel sounds, no guarding or rigidity. EXTREMITIES: No clubbing, no edema, no cyanosis, 2+ pulses and upper and lower extremities. MUSCULOSKELETAL: Muscle strength and tone normal. Bi-femoral incisions clean dry intact, soft SPINE: No scoliosis or deformity SKIN: No rashes CENTRAL NERVOUS SYSTEM: Alert and oriented -3. No focal deficits, tone is normal in all 4 extremities. PSYCHIATRIC: Alert and oriented -3. Appropriate affect. Intact judgment and insight. Results - Laboratory Findings Abnormal lab findings: Abnormal Labs 12/07/18 12/07/18 06:49 11:53 POC Glucose (mg/dL) 156 H 178 H Assessment and Plan Plan: Assessment: #1. 6.5 cm infrarenal abdominal aortic aneurysm, status post stent graft repair utilizing percutaneous approach, TOPD 0 #2. Hypertension, hyperlipidemia #3. Previous episode of myocardial infarction #4. 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 Sleep apnea with no CPAP #6. Nicotine dependence, currently in remission #7. Diverticulitis #8. History of skin cancer Plan: Patient will remain in the ICU tonight, for close hemodynamic monitoring. Currently doing well, no specific complaints, pain is controlled. Antibiotics per surgery, home meds have been reordered. We'll continue to follow. I performed a history & physical examination of the patient and discussed their management with my nurse practitioner, Louise Johnson. I reviewed the nurse practitioner's note and agree with the documented findings and plan of care. Lung sounds are clear. The findings and the impression was discussed with the patient. I attest to the documentation by the nurse practitioner. Time with Patient: Greater than 30
[2018-12-07] MEDS: ATORVASTATIN 10 MG TAB PO SCH (20:56)
[2018-12-07] MEDS: METOPROLOL TARTRATE 25 MG TAB PO SCH (20:56)
[2018-12-07] MEDS: glipiZIDE 5 MG TAB PO SCH (20:56)
[2018-12-07 21:03] LABS: Glucose,Whole Blood 176 mg/dL (75-99)
[2018-12-08] MEDS: LACTATED RINGERS 1,000 ML IV SCH ×3 (00:01→19:06)
[2018-12-08 04:15] LABS: Glucose,Whole Blood 171 mg/dL (75-99)
[2018-12-08] MEDS ORDERED: ONDANSETRON 4 MG/2 ML VIAL IVP PRN (04:18)
[2018-12-08] MEDS ORDERED: ONDANSETRON 4 MG/2 ML VIAL ONE (04:23)
[2018-12-08 05:11] LABS: Basophils % (A) 0 %; Eosinophils % (A) 0 %; HCT 37.5 % (39.0-53.0); HGB 12.3 gm/dL (13.0-17.5); Lymphocytes # (A) 1.2 k/uL (1.0-4.8); Lymphocytes % (A) 8 %; MCH 31.4 pg (25.0-35.0); MCHC 32.7 g/dL (31.0-37.0); MCV 95.9 fL (80.0-100.0); Mean Platelet Volume 6.7; Monocytes # (A) 0.8 k/uL (0-1.0); Monocytes % (A) 5 %; Neutrophils # (A) 12.7 k/uL (1.3-7.7); Neutrophils % (A) 85 %; Platelet Count 192 k/uL (150-450); RBC 3.91 m/uL (4.30-5.90); RDW 13.9 % (11.5-15.5)
[2018-12-08 05:17] LABS: Calcium 8.8 mg/dL (8.4-10.2); Potassium 4.5 mmol/L (3.5-5.1)
[2018-12-08 07:17] LABS: Glucose,Whole Blood 203 mg/dL (75-99)
[2018-12-08] MEDS: CHOLECALCIFEROL 1,000 UNIT TAB PO SCH (08:35)
[2018-12-08] MEDS: CYANOCOBALAMIN 500 MCG TAB PO SCH (08:35)
[2018-12-08] MEDS: METOPROLOL TARTRATE 25 MG TAB PO SCH ×2 (08:36→22:06)
[2018-12-08] MEDS: FINASTERIDE 5 MG TAB PO SCH (08:36)
[2018-12-08] MEDS: glipiZIDE 5 MG TAB PO SCH ×2 (08:36→22:06)
[2018-12-08] MEDS: LINAGLIPTIN 5 MG TABLET PO SCH (08:36)
[2018-12-08] MEDS: ASPIRIN 81 MG PO SCH (08:36)
[2018-12-08] MEDS: HYDROcodone/APAP 5-325MG 1 EACH TAB PO PRN (08:36)
[2018-12-08] MEDS: LOSARTAN 50 MG TAB PO SCH (08:36)
[2018-12-08] MEDS: ESCITALOPRAM 10 MG TAB PO SCH (08:36)
[2018-12-08] MEDS ORDERED: ASPIRIN 81 MG PO SCH (09:00)
--- NOTE | 2018-12-08 10:28 | P.PN ---
Subjective Progress Note Date: 12/08/18 Principal diagnosis: AAA status post EVAR Patient states having difficulty with urination yesterday and this morning. He denies any pain at the incision sites. He denies any fevers, chills, chest pain or shortness of breath. He does state he would like to stay because he does not feel back to normal as of yet. Objective - Vital Signs Vital signs: Vital Signs Temp 98.2 F 12/08/18 08:00 Pulse 92 12/08/18 08:00 Resp 22 12/08/18 08:00 BP 159/97 12/08/18 08:00 Pulse Ox 97 12/08/18 08:00 Intake & Output 12/07/18 12/08/18 12/08/18 18:59 06:59 18:59 Intake Total 500 240 20 Output Total 375 295 Balance 125 -55 20 Weight 80.7 kg Intake: IV 0 220 20 Lactated Ringers 1,000 ml 220 20 @ 20 mls/hr IV .Q24H [facility] Rx#:[id number] Intake, IV Titration 500 20 Amount Lactated Ringers 1,000 ml 20 @ 20 mls/hr IV .Q24H [facility] Rx#:[id number] Sodium Chloride 0.9% 1, 500 000 ml @ As Directed IV . Q0M [facility] Rx#:[id number] Output: Urine 375 295 Other: Voiding Method Indwelling Catheter Urinal # Voids 1 # Bowel Movements 1 - Exam Bilateral groin incisions with dressings in place. The right groin dressing is slightly blood-tinged. There is no evidence of hematoma bilaterally. Patient has pulses DP bilaterally. - Labs CBC & Chem 7: 12/08/18 04:19 12/08/18 04:19 Labs: Abnormal Lab Results - Last 24 Hours (Table) 12/07/18 12/07/18 12/08/18 Range/Units 11:53 20:51 04:03 WBC (3.8-10.6) k/uL RBC (4.30-5.90) m/uL Hgb (13.0-17.5) gm/dL Hct (39.0-53.0) % Neutrophils # (1.3-7.7) k/uL Sodium (137-145) mmol/L Glucose (74-99) mg/dL POC Glucose (mg/dL) 178 H 176 H 171 H (75-99) mg/dL 12/08/18 12/08/18 12/08/18 Range/Units 04:19 04:19 07:05 WBC 15.0 H (3.8-10.6) k/uL RBC 3.91 L (4.30-5.90) m/uL Hgb 12.3 L (13.0-17.5) gm/dL Hct 37.5 L (39.0-53.0) % Neutrophils # 12.7 H (1.3-7.7) k/uL Sodium 134 L (137-145) mmol/L Glucose 192 H (74-99) mg/dL POC Glucose (mg/dL) 203 H (75-99) mg/dL Assessment and Plan (1) AAA (abdominal aortic aneurysm) without rupture Current Visit: Yes Status: Acute Priority: High Code(s): I71.4 - ABDOMINAL AORTIC ANEURYSM, WITHOUT RUPTURE SNOMED Code(s): 40853814 Plan: Pain control. Increase activity would like to see patient with assistance today and if stable can be discharged home tomorrow. Continue current medications. Follow-up with Dr. Mar in 2 weeks.
[2018-12-08 12:03] LABS: Glucose,Whole Blood 191 mg/dL (75-99)
[2018-12-08] MEDS: INSULIN ASPART (NovoLOG) 100 UNIT/ML VIAL SQ SCH ×3 (13:49→21:04)
--- NOTE | 2018-12-08 15:50 | P.PN ---
Subjective Progress Note Date: 12/08/18 Principal diagnosis: status postpercutaneous infrarenal abdominal aortic aneurysm ,stent graft placement This 83-year-old white male patient of Dr. Contreras, with past medical history of hypertension, hyperlipidemia, and diabetes mellitus type 2, coronary artery disease, history of myocardial infarction, obstructive sleep apnea not on CPAP therapy. Patient has a abdominal aortic aneurysm which was being followed by Dr. Mccarthy for a period of several years, and recently was found to be enlarged to a point of 6.5 cm. Patient was recommended surgical intervention, and today on 12/07/2018 underwent stent graft repair of infrarenal abdominal aortic aneurysm utilizing percutaneous approach. Following the procedure patient was transferred to the intensive care unit for close monitoring, we're seeing this patient in the ICU, resting comfortably in bed, in slight reverse Trendelenburg position. No distress, no difficulty breathing, vital signs are stable, in sinus mechanism with a controlled rate, byfemoral incision is covered with surgical dressings, clean dry and intact, soft. Pulse ox is 96% on 2 L per nasal cannula, patient is afebrile. We're consulted for ICU management. Patient was reevaluated today on 12/08/2018, he seems to be doing well overall, however he had issues with difficulty urinating, required straight catheterization. Otherwise the patient is doing well. Denies any shortness of breath, no cough no wheezing, he feels generally weak.labs were reviewed WBC count is 15.0 hemoglobin is 12.3 electrolytes are normal renal profile showed BR of 18 and creatinine 1.14 Objective - Vital Signs Vital signs: Vital Signs Temp 98.2 F 12/08/18 08:00 Pulse 84 12/08/18 11:00 Resp 21 12/08/18 11:34 BP 139/96 12/08/18 10:00 Pulse Ox 95 12/08/18 11:00 Intake & Output 12/07/18 12/08/18 12/08/18 18:59 06:59 18:59 Intake Total 500 240 460 Output Total 375 295 700 Balance 125 -55 -240 Weight 80.7 kg Intake: IV 0 220 100 Lactated Ringers 1,000 ml 220 100 @ 20 mls/hr IV .Q24H [facility] Rx#:[id number] Intake, IV Titration 500 20 Amount Lactated Ringers 1,000 ml 20 @ 20 mls/hr IV .Q24H [facility] Rx#:[id number] Sodium Chloride 0.9% 1, 500 000 ml @ As Directed IV . Q0M [facility] Rx#:[id number] Oral 360 Output: Urine 375 295 700 Other: Voiding Method Indwelling Catheter Urinal Toilet Urinal # Voids 1 1 # Bowel Movements 1 - Exam Physical Exam: Revealed a 83-year-old white male in no distress. Head: Atraumatic, normocephalic. HEENT:[Neck is supple.] [No neck masses.] [No thyromegaly.] [No JVD.] Chest: [Clear throughout, no crackles, no rhonchi, no wheezes.] Cardiac Exam: [Normal S1 and S2, no S3 gallop, no murmur.] Abdomen: [Soft, nontender, no megaly, no rebound, no guarding, normal bowel sounds.] Extremities: [No clubbing, no edema, no cyanosis.]bifemoral incisions look clean and dry/intact Neurological Exam: [No focal neurologic deficit.] skin: No rashes Psychiatric: Normal mood affect and mental status examination. - Labs CBC & Chem 7: 12/08/18 04:19 12/08/18 04:19 Labs: Abnormal Lab Results - Last 24 Hours (Table) 12/07/18 12/08/18 12/08/18 Range/Units 20:51 04:03 04:19 WBC (3.8-10.6) k/uL RBC (4.30-5.90) m/uL Hgb (13.0-17.5) gm/dL Hct (39.0-53.0) % Neutrophils # (1.3-7.7) k/uL Sodium 134 L (137-145) mmol/L Glucose 192 H (74-99) mg/dL POC Glucose (mg/dL) 176 H 171 H (75-99) mg/dL 12/08/18 12/08/18 12/08/18 Range/Units 04:19 07:05 11:51 WBC 15.0 H (3.8-10.6) k/uL RBC 3.91 L (4.30-5.90) m/uL Hgb 12.3 L (13.0-17.5) gm/dL Hct 37.5 L (39.0-53.0) % Neutrophils # 12.7 H (1.3-7.7) k/uL Sodium (137-145) mmol/L Glucose (74-99) mg/dL POC Glucose (mg/dL) 203 H 191 H (75-99) mg/dL Assessment and Plan Assessment: #1. 6.5 cm infrarenal abdominal aortic aneurysm, status post stent graft repair utilizing percutaneous approach, postoperative day #1 #2. Hypertension, hyperlipidemia #3. Previous episode of myocardial infarction #4. 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 Sleep apnea with no CPAP #6. Nicotine dependence, currently in remission #7. Diverticulitis #8. History of skin cancer #9 difficulty urinating, most likely secondary to enlarged prostate, will consider placing the patient on Flomax and will follow closely. Recommendation: Continue incentive spirometry, early ambulation, home meds were restarted, will transfer out of the ICU to a monitor bed on selective. Consider discharge planning in the next 24 hours Time with Patient: Less than 30
[2018-12-08 16:25] LABS: Amorphous Sediment,Urine Rare /hpf; Appearance,Urine Clear (Clear); Bilirubin,Urine Negative (Negative); Blood,Urine Small (Negative); Color,Urine Light Yellow; Glucose,Urine (UA) Negative (Negative); Ketones,Urine Negative (Negative); Leukocyte Esterase,Urine Negative (Negative); Mucus,Urine Rare /hpf; Nitrite,Urine Negative (Negative); PH, Urine 5.5 (5.0-8.0); Protein,Urine Trace (Negative); RBC,Urine 18 /hpf (0-5); Urobilinogen,Urine <2.0 mg/dL (<2.0); WBC,Urine 1 /hpf (0-5)
[2018-12-08 16:37] LABS: Glucose,Whole Blood 161 mg/dL (75-99)
[2018-12-08 20:56] LABS: Glucose,Whole Blood 212 mg/dL (75-99)
[2018-12-08] MEDS: ATORVASTATIN 10 MG TAB PO SCH (22:06)
--- NOTE | 2018-12-08 22:06 | P.CONS ---
History of Present Illness - Reason for Consult Consult date: 12/08/18 Medical management of hypertension and other medical problems - Chief Complaint Status post infrarenal aortic aneurysm stent and graft repair - History of Present Illness Patient is a 83-year-old male with a known history of hypertension, hyperlipidemia, diabetes type 2, history of coronary artery disease with stent placement, obstructive sleep apnea on CPAP at home and also history of abdominal aortic aneurysm who is being followed by Dr. Mccarthy as an outpatient was admitted to the hospital due to recent finding of enlarging aortic aneurysm up to 6.5 cm. Patient had stent graft repair of infrarenal abdominal aortic aneurysm on 12/07/2018. No complaints of chest pain or shortness of breath. No cough or sputum production. No fever no chills. Bilateral femoral access site, Dressing is clean and intact. Patient was found to have urinary retention last night and is requiring straight catheter patient. Currently patient is able to void spontaneously. WBC 15.0, hemoglobin 12.4 and sodium 134. Currently patient is being monitored in the ICU. Review of Systems Constitutional: Patient denies any fever or chills . No generalized weakness or weight loss. Abdomen: Patient denied nausea vomiting and diarrhea and abdominal pain. Cardiovascular: Patient denies any chest pain or short of breath no palpitations. Respiratory: patient denied any cough is from production. No shortness of breath Neurologic: Patient denied any numbness or tingling headache. Musculoskeletal: Patient denies any complaints of joint swelling or deformity. Skin: Negative Psychiatric: Negative Endocrine: No heat or cold intolerance. No recent weight gain. Genitourinary: No dysuria or hematuria. All other 14 point ROS negative except the above Past Medical History Past Medical History: Cancer, CVA/TIA, Diabetes Mellitus, Hyperlipidemia, Hypertension, Myocardial Infarction ([place]), Prostate Disorder, Sleep Apnea/CPAP/ BIPAP Additional Past Medical History / Comment(s): hx sleep apnea-no cpap, hx migraines, TIA 10/2014- no effects, AAA followed by Dr. Mccarthy, diverticulitis , hx skin cancer Last Myocardial Infarction Date:: 04/17/17 History of Any Multi-Drug Resistant Organisms: None Reported Past Surgical History: Adenoidectomy, Heart Catheterization With Stent, Tonsillectomy Additional Past Surgical History / Comment(s): colonoscopy, basal cell cancer removed from forehead, one cardiac stent, BILATERAL CATARACT SURGERY Past Anesthesia/Blood Transfusion Reactions: Motion Sickness Additional Past Anesthesia/Blood Transfusion Reaction / Comm: . Date of Last Stent Placement:: 03/2017 Past Psychological History: Anxiety, Depression Additional Psychological History / Comment(s): . Smoking Status: Former smoker Past Alcohol Use History: Occasional Additional Past Alcohol Use History / Comment(s): STARTED SMOKING AT AGE 23 quit smoking 1986, smokes 1 PPD, Past Drug Use History: None Reported - Past Family History Brother(s) Family Medical History: No Reported History Sister(s) Family Medical History: No Reported History Son(s) Family Medical History: No Reported History Father Family Medical History: Coronary Artery Disease (CAD), Diabetes Mellitus Additional Family Medical History / Comment(s): Father had carotid artery occlusion and had a procedure to remove. Father was an alcoholic. He of a [place] at 76-77yrs. Mother Family Medical History: Deep Vein Thrombosis (DVT), Pulmonary Embolus Additional Family Medical History / Comment(s): Mother at 42 yrs of age of "blood clot" in the lung and it went to the heart. Medications and Allergies Home Medications Medication Instructions Recorded Confirmed Type glipiZIDE [Glucotrol] 5 mg PO BID 10/30/14 12/07/18 History Cyanocobalamin (Vitamin B-12) 5,000 mcg PO DAILY 04/17/17 12/07/18 History [Vitamin B-12] Aspirin 81 mg PO DAILY 04/20/17 12/07/18 Rx Metoprolol Tartrate [Lopressor] 25 mg PO BID #60 tab 04/20/17 12/07/18 Rx sitaGLIPtin [Januvia] 50 mg PO DAILY 07/18/17 12/07/18 History Atorvastatin [Lipitor] 40 mg PO DAILY 11/04/18 12/07/18 History Cholecalciferol [Vitamin D3] 5,000 unit PO DAILY 11/04/18 12/07/18 History Escitalopram [Lexapro] 10 mg PO DAILY 11/04/18 12/07/18 History Losartan [Cozaar] 50 mg PO DAILY 11/04/18 12/07/18 History Meclizine [Antivert] 25 mg PO TID PRN #14 tab 11/05/18 12/07/18 Rx ALPRAZolam [Xanax] 0.25 mg PO Q8HR PRN 12/01/18 12/07/18 History Finasteride [Proscar] 5 mg PO DAILY 12/01/18 12/07/18 History Allergies Allergy/AdvReac Type Severity Reaction Status Date / Time No Known Allergies Allergy Verified 12/07/18 14:39 Physical Exam Vitals: Vital Signs Temp Pulse Pulse Resp BP Pulse Ox 12/08/18 11:34 21 12/08/18 11:00 84 21 95 12/08/18 10:00 105 H 21 139/96 95 12/08/18 09:00 77 9 L 140/94 96 12/08/18 08:00 98.2 F 92 21 159/97 97 12/08/18 07:00 76 18 159/97 92 L 12/08/18 06:00 87 18 151/94 97 12/08/18 05:00 90 12 155/92 97 12/08/18 04:00 98.6 F 79 14 151/90 94 L 12/08/18 03:00 86 19 162/98 96 12/08/18 02:00 101 H 22 148/90 95 12/08/18 01:00 78 16 151/89 96 12/08/18 00:00 97.6 F 80 12 138/85 96 12/07/18 23:00 86 14 146/83 96 12/07/18 22:00 86 19 144/85 96 12/07/18 21:23 95 12/07/18 21:00 93 12 167/94 94 L 12/07/18 20:00 97.4 F L 88 15 155/90 97 12/07/18 19:00 86 35 H 157/95 97 12/07/18 18:30 71 19 159/92 98 12/07/18 18:00 72 12 146/82 91 L 12/07/18 17:30 74 9 L 127/82 96 12/07/18 17:00 74 12 142/86 96 12/07/18 16:30 70 18 136/80 12/07/18 16:00 97.6 F 75 73 16 120/77 96 12/07/18 15:30 66 16 116/76 97 12/07/18 15:00 67 18 116/79 96 12/07/18 14:30 70 7 L 108/67 95 Intake and Output 12/07/18 12/08/1812/08/19 22:59 06:59 14:59 Intake Total 480 160 460 Output Total 395 125 700 Balance 85 35 -240 Intake: IV 60 160 100 Lactated Ringers 1,000 ml 60 160 100 @ 20 mls/hr IV .Q24H [facility] Rx#:[id number] Intake, IV Titration 420 Amount Lactated Ringers 1,000 ml 20 @ 20 mls/hr IV .Q24H [facility] Rx#:[id number] Sodium Chloride 0.9% 1, 400 000 ml @ As Directed IV . Q0M [facility] Rx#:[id number] Oral 360 Output: Urine 395 125 700 Other: Voiding Method Indwelling Catheter Urinal Toilet Urinal # Voids 1 1 # Bowel Movements 1 1 Weight 80.7 kg PHYSICAL EXAMINATION: Patient is lying in the bed comfortably, no acute distress, awake alert and oriented.. HEENT: Normocephalic. Neck is supple. Pupils reactive. Nostrils clear. Oral cavity is moist. Ears reveal no drainage. Neck reveals no JVD, carotid bruits, or thyromegaly. CHEST EXAMINATION: Trachea is central. Symmetrical expansion. Lung asher clear to auscultation and percussion. CARDIAC: Normal S1, S2 with no gallops. No murmurs ABDOMEN: Soft. Bowel sounds normal. No organomegaly. No abdominal bruits. Extremities: reveal no edema. No clubbing or cyanosis Neurologically awake, alert, oriented x3 with well-coordinated movements. No focal deficits noted Skin: No rash or skin lesions. Psychiatric: Coperative. Nonsuicidal Musculoskeletal: No joint swelling or deformity. Normal range of motion. Results CBC & Chem 7: 12/08/18 04:19 12/08/18 04:19 Labs: Abnormal Lab Results - Last 24 Hours (Table) 12/07/18 12/08/18 12/08/18 Range/Units 20:51 04:03 04:19 WBC (3.8-10.6) k/uL RBC (4.30-5.90) m/uL Hgb (13.0-17.5) gm/dL Hct (39.0-53.0) % Neutrophils # (1.3-7.7) k/uL Sodium 134 L (137-145) mmol/L Glucose 192 H (74-99) mg/dL POC Glucose (mg/dL) 176 H 171 H (75-99) mg/dL 12/08/18 12/08/18 12/08/18 Range/Units 04:19 07:05 11:51 WBC 15.0 H (3.8-10.6) k/uL RBC 3.91 L (4.30-5.90) m/uL Hgb 12.3 L (13.0-17.5) gm/dL Hct 37.5 L (39.0-53.0) % Neutrophils # 12.7 H (1.3-7.7) k/uL Sodium (137-145) mmol/L Glucose (74-99) mg/dL POC Glucose (mg/dL) 203 H 191 H (75-99) mg/dL Assessment and Plan Assessment: Status post stent graft repair of intracranial abdominal aortic aneurysm measuring up to 6.5 cm. Postoperative day 1 Coronary artery disease with history of stent placement History of [place] Hypertension Hyperlipidemia Diabetes type 2. [id number]. 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 History of basal cell skin cancer removed from forehead Anxiety/depression Previous history of smoking Obstructive sleep apnea not on CPAP at home Postoperative urine retention requiring straight cath patient. Possible BPH Resolving now. DVT prophylaxis as per surgical team Plan: Patient will be continued on aspirin statins, beta blockers and lisinopril. Continue with insulin sliding scale and home medications. Encourage ambulation and incentive spirometry. Otherwise continue the current management. Will follow up closely. Further recommendations based on the clinical course. Thank you for your consult. Time with Patient: Greater than 30
[2018-12-09] MEDS: LACTATED RINGERS 1,000 ML IV SCH ×2 (05:34→08:11)
[2018-12-09 06:04] LABS: Glucose,Whole Blood 208 mg/dL (75-99)
[2018-12-09] MEDS: INSULIN ASPART (NovoLOG) 100 UNIT/ML VIAL SQ SCH ×4 (06:21→21:04)
[2018-12-09] MEDS: METOPROLOL TARTRATE 25 MG TAB PO SCH ×2 (08:24→20:11)
[2018-12-09] MEDS: FINASTERIDE 5 MG TAB PO SCH (08:24)
[2018-12-09] MEDS: glipiZIDE 5 MG TAB PO SCH ×2 (08:24→20:11)
[2018-12-09] MEDS: ESCITALOPRAM 10 MG TAB PO SCH (08:25)
[2018-12-09] MEDS: CHOLECALCIFEROL 1,000 UNIT TAB PO SCH (08:25)
[2018-12-09] MEDS: HYDROcodone/APAP 5-325MG 1 EACH TAB PO PRN (08:25)
[2018-12-09] MEDS: ASPIRIN 81 MG PO SCH (08:26)
[2018-12-09] MEDS: LINAGLIPTIN 5 MG TABLET PO SCH (08:26)
[2018-12-09] MEDS: CYANOCOBALAMIN 500 MCG TAB PO SCH (08:26)
[2018-12-09] MEDS: LOSARTAN 50 MG TAB PO SCH (08:26)
[2018-12-09 11:44] LABS: Glucose,Whole Blood 189 mg/dL (75-99)
[2018-12-09 16:27] LABS: Basophils % (A) 0 %; Eosinophils # (A) 0.1 k/uL (0-0.7); Eosinophils % (A) 1 %; HCT 36.5 % (39.0-53.0); HGB 12.1 gm/dL (13.0-17.5); Lymphocytes # (A) 1.4 k/uL (1.0-4.8); Lymphocytes % (A) 9 %; MCH 31.1 pg (25.0-35.0); MCV 94.1 fL (80.0-100.0); Mean Platelet Volume 7.4; Monocytes # (A) 1.2 k/uL (0-1.0); Monocytes % (A) 7 %; Neutrophils # (A) 13.4 k/uL (1.3-7.7); Neutrophils % (A) 81 %; Platelet Count 199 k/uL (150-450); RBC 3.88 m/uL (4.30-5.90); RDW 13.7 % (11.5-15.5); WBC 16.6 k/uL (3.8-10.6)
[2018-12-09 16:46] LABS: Glucose,Whole Blood 136 mg/dL (75-99)
[2018-12-09] MEDS: TAMSULOSIN 0.4 MG CAP.ER.24H PO SCH (16:48)
--- NOTE | 2018-12-09 16:49 | XR ---
EXAMINATION TYPE: XR chest 1V DATE OF EXAM: 12/09/2018 COMPARISON: 04/17/2017 HISTORY: Cough TECHNIQUE: Single frontal view of the chest is obtained. FINDINGS: Heart is normal. Lungs are clear of consolidation. There are no hilar masses. Thoracic aor ta shows mild atheromatous change. There are chest leads. IMPRESSION: No active cardiopulmonary disease. Normal heart. No change.
--- NOTE | 2018-12-09 18:58 | P.PN ---
Subjective History of present illness, from medical records Patient is a 83-year-old male with a known history of hypertension, hyperlipidemia, diabetes type 2, history of coronary artery disease with stent placement, obstructive sleep apnea on CPAP at home and also history of abdominal aortic aneurysm who is being followed by Dr. Mccarthy as an outpatient was admitted to the hospital due to recent finding of enlarging aortic aneurysm up to 6.5 cm. Patient had stent graft repair of infrarenal abdominal aortic aneurysm on 12/07/2018. No complaints of chest pain or shortness of breath. No cough or sputum production. No fever no chills. Bilateral femoral access site, Dressing is clean and intact. Patient was found to have urinary retention last night and is requiring straight catheter patient. Currently patient is able to void spontaneously. WBC 15.0, hemoglobin 12.4 and sodium 134. Currently patient is being monitored in the ICU. Subjective Patient was seen in the general medical floor, is a status post repair of abdominal aortic aneurysm of 6.5 cm. Today is postoperative day #2. Patient was lying in bed in distress. However he was complaining from chronic white count which he states that for a year but is bothering him. Patient's his excess smoker. Vitas is stable and patient is afebrile. He has mild leukocytosis of 16.6. Chest x-rays negative. Patient is complaining of from difficult urination, bladder scan show 800 mL and, straight cath taken out 600 mL of urine. His urine analysis have some blood in it which could be due to infection or traumatic, as per staff they have difficulty inserting strength And they have to twisted which causes some blood to ooze out. Patient is already on finasteride, Flomax has been added. Started empirically on ceftriaxone. Objective - Vital Signs Vital signs: Vital Signs Temp 98 F 12/09/18 16:00 Pulse 73 12/09/18 16:00 Resp 18 12/09/18 16:00 BP 108/71 12/09/18 16:00 Pulse Ox 98 12/09/18 16:00 Intake & Output 12/08/18 12/09/18 12/09/18 18:59 06:59 18:59 Intake Total 1200 240 430 Output Total 1300 550 900 Balance -100 -310 -470 Intake: IV 100 Lactated Ringers 1,000 ml 100 @ 20 mls/hr IV .Q24H [facility] Rx#:[id number] Oral 1100 240 430 Output: Urine 1300 550 900 Straight 600 Other: Voiding Method Toilet Toilet Toilet Urinal Urinal Urinal # Voids 1 1 1 - Exam Patient is lying in the bed comfortably, no acute distress, awake alert and oriented.. HEENT: Normocephalic. Neck is supple. Pupils reactive. Nostrils clear. Oral cavity is moist. Ears reveal no drainage. Neck reveals no JVD, carotid bruits, or thyromegaly. CHEST EXAMINATION: Trachea is central. Symmetrical expansion. Lung asher clear to auscultation and percussion. CARDIAC: Normal S1, S2 with no gallops. No murmurs ABDOMEN: Soft. Bowel sounds normal. No organomegaly. No abdominal bruits. Extremities: reveal no edema. No clubbing or cyanosis Neurologically awake, alert, oriented x3 with well-coordinated movements. No focal deficits noted Skin: No rash or skin lesions. Psychiatric: Coperative. Nonsuicidal Musculoskeletal: No joint swelling or deformity. Normal range of motion. - Labs CBC & Chem 7: 12/09/18 15:50 12/08/18 04:19 Labs: Abnormal Lab Results - Last 24 Hours (Table) 12/08/18 12/09/18 12/09/18 Range/Units 20:44 06:03 11:17 WBC (3.8-10.6) k/uL RBC (4.30-5.90) m/uL Hgb (13.0-17.5) gm/dL Hct (39.0-53.0) % Neutrophils # (1.3-7.7) k/uL Monocytes # (0-1.0) k/uL POC Glucose (mg/dL) 212 H 208 H 189 H (75-99) mg/dL 12/09/18 12/09/18 Range/Units 15:50 16:44 WBC 16.6 H (3.8-10.6) k/uL RBC 3.88 L (4.30-5.90) m/uL Hgb 12.1 L (13.0-17.5) gm/dL Hct 36.5 L (39.0-53.0) % Neutrophils # 13.4 H (1.3-7.7) k/uL Monocytes # 1.2 H (0-1.0) k/uL POC Glucose (mg/dL) 136 H (75-99) mg/dL Assessment and Plan Assessment: Status post stent graft repair of abdominal aortic aneurysm measuring up to 6.5 cm. Abnormal urine analysis could be due to infection or traumatic straight cath. Coronary artery disease with history of stent placement History of [place] Hypertension Hyperlipidemia Possible COPD, and not in acute exacerbation Diabetes type 2. [id number]-[id number]. 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 History of basal cell skin cancer removed from forehead Anxiety/depression Previous history of smoking Obstructive sleep apnea not on CPAP at home Postoperative urine retention requiring straight cath patient. Possible BPH Resolving now. DVT prophylaxis as per surgical team Plan: Patient will be continued on aspirin statins, beta blockers and lisinopril. Continue with insulin sliding scale and home medications. And ceftriaxone for possible infection. Encourage ambulation and incentive spirometry. Otherwise continue the current management. Will follow up closely. Follow-up labs include WBC. Further recommendations based on the clinical course.
[2018-12-09] MEDS: ATORVASTATIN 10 MG TAB PO SCH (20:11)
[2018-12-09 20:45] LABS: Glucose,Whole Blood 183 mg/dL (75-99)
[2018-12-10 06:11] LABS: Glucose,Whole Blood 94 mg/dL (75-99)
[2018-12-10] MEDS: LACTATED RINGERS 1,000 ML IV SCH ×2 (06:12→16:54)
[2018-12-10] MEDS: INSULIN ASPART (NovoLOG) 100 UNIT/ML VIAL SQ SCH ×4 (06:12→22:41)
[2018-12-10] MEDS: LOSARTAN 50 MG TAB PO SCH (08:45)
[2018-12-10] MEDS: ESCITALOPRAM 10 MG TAB PO SCH (08:45)
[2018-12-10] MEDS: glipiZIDE 5 MG TAB PO SCH ×2 (08:45→21:46)
[2018-12-10] MEDS: METOPROLOL TARTRATE 25 MG TAB PO SCH ×2 (08:45→21:46)
[2018-12-10] MEDS: FINASTERIDE 5 MG TAB PO SCH (08:45)
[2018-12-10] MEDS: LINAGLIPTIN 5 MG TABLET PO SCH (08:45)
[2018-12-10] MEDS: CYANOCOBALAMIN 500 MCG TAB PO SCH (08:45)
[2018-12-10] MEDS: CHOLECALCIFEROL 1,000 UNIT TAB PO SCH (08:45)
[2018-12-10] MEDS: ASPIRIN 81 MG PO SCH (08:45)
[2018-12-10] MEDS: TAMSULOSIN 0.4 MG CAP.ER.24H PO SCH (08:45)
[2018-12-10] MEDS ORDERED: BENZOCAINE/MENTHOL LOZENG 1 EACH LOZENGE MUCOUS MEM PRN (09:22)
[2018-12-10 11:31] LABS: Glucose,Whole Blood 149 mg/dL (75-99)
--- NOTE | 2018-12-10 13:27 | P.PN ---
Subjective History of present illness, from medical records Patient is a 83-year-old male with a known history of hypertension, hyperlipidemia, diabetes type 2, history of coronary artery disease with stent placement, obstructive sleep apnea on CPAP at home and also history of abdominal aortic aneurysm who is being followed by Dr. Mccarthy as an outpatient was admitted to the hospital due to recent finding of enlarging aortic aneurysm up to 6.5 cm. Patient had stent graft repair of infrarenal abdominal aortic aneurysm on 12/07/2018. No complaints of chest pain or shortness of breath. No cough or sputum production. No fever no chills. Bilateral femoral access site, Dressing is clean and intact. Patient was found to have urinary retention last night and is requiring straight catheter patient. Currently patient is able to void spontaneously. WBC 15.0, hemoglobin 12.4 and sodium 134. Currently patient is being monitored in the ICU. Subjective Patient was seen in the general medical floor, is a status post repair of abdominal aortic aneurysm of 6.5 cm. Today is postoperative day #2. Patient was lying in bed in distress. However he was complaining from chronic white count which he states that for a year but is bothering him. Patient's his excess smoker. Vitas is stable and patient is afebrile. He has mild leukocytosis of 16.6. Chest x-rays negative. Patient is complaining of from difficult urination, bladder scan show 800 mL and, straight cath taken out 600 mL of urine. His urine analysis have some blood in it which could be due to infection or traumatic, as per staff they have difficulty inserting strength And they have to twisted which causes some blood to ooze out. Patient is already on finasteride, Flomax has been added. Started empirically on ceftriaxone. 12/10/2018 Patient was complaining of from sore throat probably due to intubation, no abdominal pain. He still have some discomfort at the surgical insertion site in his right inguinal, however improving and the wound looks healing. Vitas looks stable. Patient states he can Pee Without difficulty. Physical versus therapy recommended home health care Objective - Vital Signs Vital signs: Vital Signs Temp 97.8 F 12/10/18 11:46 Pulse 81 12/10/18 11:46 Resp 18 12/10/18 11:46 BP 120/68 12/10/18 11:46 Pulse Ox 98 12/10/18 11:46 Intake & Output 12/09/18 12/10/18 12/10/18 18:59 06:59 18:59 Intake Total 430 240 Output Total 900 350 Balance -470 -350 240 Weight 80.6 kg Intake: Oral 430 240 Output: Urine 900 350 Straight 600 Other: Voiding Method Toilet Toilet Toilet Urinal Urinal Urinal # Voids 1 1 1 # Bowel Movements 1 - Exam Patient is lying in the bed comfortably, no acute distress, awake alert and oriented.. HEENT: Normocephalic. Neck is supple. Pupils reactive. Nostrils clear. Oral cavity is moist. Ears reveal no drainage. Neck reveals no JVD, carotid bruits, or thyromegaly. CHEST EXAMINATION: Trachea is central. Symmetrical expansion. Lung asher clear to auscultation and percussion. CARDIAC: Normal S1, S2 with no gallops. No murmurs ABDOMEN: Soft. Bowel sounds normal. No organomegaly. No abdominal bruits. Extremities: reveal no edema. No clubbing or cyanosis Neurologically awake, alert, oriented x3 with well-coordinated movements. No focal deficits noted Skin: No rash or skin lesions. Psychiatric: Coperative. Nonsuicidal Musculoskeletal: No joint swelling or deformity. Normal range of motion. - Labs CBC & Chem 7: 12/09/18 15:50 12/08/18 04:19 Labs: Abnormal Lab Results - Last 24 Hours (Table) 12/09/18 12/09/18 12/09/18 Range/Units 15:50 16:44 20:43 WBC 16.6 H (3.8-10.6) k/uL RBC 3.88 L (4.30-5.90) m/uL Hgb 12.1 L (13.0-17.5) gm/dL Hct 36.5 L (39.0-53.0) % Neutrophils # 13.4 H (1.3-7.7) k/uL Monocytes # 1.2 H (0-1.0) k/uL POC Glucose (mg/dL) 136 H 183 H (75-99) mg/dL 12/10/18 Range/Units 11:19 WBC (3.8-10.6) k/uL RBC (4.30-5.90) m/uL Hgb (13.0-17.5) gm/dL Hct (39.0-53.0) % Neutrophils # (1.3-7.7) k/uL Monocytes # (0-1.0) k/uL POC Glucose (mg/dL) 149 H (75-99) mg/dL Assessment and Plan Assessment: Status post stent graft repair of abdominal aortic aneurysm measuring up to 6.5 cm. Abnormal urine analysis could be due to infection or traumatic straight cath. Coronary artery disease with history of stent placement History of [place] Hypertension Hyperlipidemia Possible COPD, and not in acute exacerbation Diabetes type 2. [id number]. 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 History of basal cell skin cancer removed from forehead Anxiety/depression Previous history of smoking Obstructive sleep apnea not on CPAP at home Postoperative urine retention requiring straight cath patient. Possible BPH Resolving now. DVT prophylaxis as per surgical team Plan: Patient will be continued on aspirin statins, beta blockers and lisinopril. Continue with insulin sliding scale and home medications. And ceftriaxone for possible infection. Encourage ambulation and incentive spirometry. Otherwise continue the current management. Will follow up closely. Follow-up labs include WBC. Further recommendations based on the clinical course.
[2018-12-10 15:03] LABS: Basophils # (A) 0.1 k/uL (0-0.2); Basophils % (A) 0 %; Eosinophils # (A) 0.2 k/uL (0-0.7); Eosinophils % (A) 1 %; HCT 35.1 % (39.0-53.0); HGB 11.4 gm/dL (13.0-17.5); Lymphocytes # (A) 1.4 k/uL (1.0-4.8); Lymphocytes % (A) 8 %; MCH 30.9 pg (25.0-35.0); MCHC 32.4 g/dL (31.0-37.0); MCV 95.4 fL (80.0-100.0); Mean Platelet Volume 7.6; Monocytes # (A) 1.1 k/uL (0-1.0); Monocytes % (A) 7 %; Neutrophils # (A) 14.3 k/uL (1.3-7.7); Neutrophils % (A) 81 %; Platelet Count 196 k/uL (150-450); RBC 3.68 m/uL (4.30-5.90); RDW 13.9 % (11.5-15.5); WBC 17.5 k/uL (3.8-10.6)
[2018-12-10 16:24] LABS: Glucose,Whole Blood 127 mg/dL (75-99)
[2018-12-10 21:38] LABS: Glucose,Whole Blood 179 mg/dL (75-99)
[2018-12-10] MEDS: ATORVASTATIN 10 MG TAB PO SCH (21:46)
[2018-12-10 23:47] LABS: Calcium 9.2 mg/dL (8.4-10.2); Potassium 4.4 mmol/L (3.5-5.1)
--- NOTE | 2018-12-10 23:50 | XR ---
EXAM: XR Chest, 1 View CLINICAL HISTORY: ITS.REASON XR Reason: leukocytosis TECHNIQUE: Frontal view of the chest. COMPARISON: No relevant prior studies available. FINDINGS: Lungs: Unremarkable. No consolidation. Pleural space: Unremarkable. No pneumothorax. Heart: No pneumomediastinum. Mediastinum: Unremarkable. Bones/joints: No definite fracture. IMPRESSION: No acute findings.
[2018-12-11] MEDS: HYDROcodone/APAP 5-325MG 1 EACH TAB PO PRN ×2 (00:35→12:14)
[2018-12-11] MEDS: SODIUM CHLORIDE 0.9% 1,000 ML IV SCH ×2 (04:40→09:52)
[2018-12-11 05:55] LABS: Glucose,Whole Blood 153 mg/dL (75-99)
[2018-12-11 06:38] LABS: Basophils # (A) 0.1 k/uL (0-0.2); Basophils % (A) 0 %; Eosinophils # (A) 0.2 k/uL (0-0.7); Eosinophils % (A) 1 %; HCT 31.8 % (39.0-53.0); HGB 10.6 gm/dL (13.0-17.5); Lymphocytes # (A) 1.5 k/uL (1.0-4.8); Lymphocytes % (A) 9 %; MCH 31.9 pg (25.0-35.0); MCHC 33.3 g/dL (31.0-37.0); MCV 95.8 fL (80.0-100.0); Mean Platelet Volume 6.8; Monocytes % (A) 7 %; Neutrophils # (A) 12.6 k/uL (1.3-7.7); Neutrophils % (A) 80 %; Platelet Count 229 k/uL (150-450); RBC 3.32 m/uL (4.30-5.90); RDW 13.7 % (11.5-15.5); WBC 15.9 k/uL (3.8-10.6)
[2018-12-11 06:50] LABS: Potassium 4.5 mmol/L (3.5-5.1)
[2018-12-11] MEDS: INSULIN ASPART (NovoLOG) 100 UNIT/ML VIAL SQ SCH ×4 (07:08→21:33)
[2018-12-11] MEDS: LINAGLIPTIN 5 MG TABLET PO SCH (09:52)
[2018-12-11] MEDS: FINASTERIDE 5 MG TAB PO SCH (09:52)
[2018-12-11] MEDS: CYANOCOBALAMIN 500 MCG TAB PO SCH (09:53)
[2018-12-11] MEDS: TAMSULOSIN 0.4 MG CAP.ER.24H PO SCH (09:53)
[2018-12-11] MEDS: ESCITALOPRAM 10 MG TAB PO SCH (09:54)
[2018-12-11] MEDS: METOPROLOL TARTRATE 25 MG TAB PO SCH ×2 (09:54→21:33)
[2018-12-11] MEDS: CHOLECALCIFEROL 1,000 UNIT TAB PO SCH (09:54)
[2018-12-11] MEDS: ASPIRIN 81 MG PO SCH (09:54)
[2018-12-11] MEDS: glipiZIDE 5 MG TAB PO SCH ×2 (09:54→21:33)
[2018-12-11 11:36] LABS: Glucose,Whole Blood 282 mg/dL (75-99)
[2018-12-11] MEDS: LOSARTAN 50 MG TAB PO SCH (11:46)
[2018-12-11] MEDS: DOCUSATE 100 MG CAP PO PRN (12:14)
[2018-12-11 12:32] LABS: Appearance,Urine Clear (Clear); Bacteria,Urine Rare /hpf; Bilirubin,Urine Negative (Negative); Blood,Urine Small (Negative); Color,Urine Yellow; Glucose,Urine (UA) Trace (Negative); Ketones,Urine Negative (Negative); Leukocyte Esterase,Urine Trace (Negative); Mucus,Urine Rare /hpf; Nitrite,Urine Negative (Negative); PH, Urine 5.5 (5.0-8.0); Protein,Urine 1+ (Negative); RBC,Urine 1 /hpf (0-5); Specific Gravity,Urine 1.021 (1.001-1.035); Urobilinogen,Urine <2.0 mg/dL (<2.0); WBC,Urine 10 /hpf (0-5)
--- NOTE | 2018-12-11 12:42 | P.PN ---
Subjective History of present illness, from medical records Patient is a 83-year-old male with a known history of hypertension, hyperlipidemia, diabetes type 2, history of coronary artery disease with stent placement, obstructive sleep apnea on CPAP at home and also history of abdominal aortic aneurysm who is being followed by Dr. Mccarthy as an outpatient was admitted to the hospital due to recent finding of enlarging aortic aneurysm up to 6.5 cm. Patient had stent graft repair of infrarenal abdominal aortic aneurysm on 12/07/2018. No complaints of chest pain or shortness of breath. No cough or sputum production. No fever no chills. Bilateral femoral access site, Dressing is clean and intact. Patient was found to have urinary retention last night and is requiring straight catheter patient. Currently patient is able to void spontaneously. WBC 15.0, hemoglobin 12.4 and sodium 134. Currently patient is being monitored in the ICU. Subjective Patient was seen in the general medical floor, is a status post repair of abdominal aortic aneurysm of 6.5 cm. Today is postoperative day #2. Patient was lying in bed in distress. However he was complaining from chronic white count which he states that for a year but is bothering him. Patient's his excess smoker. Vitas is stable and patient is afebrile. He has mild leukocytosis of 16.6. Chest x-rays negative. Patient is complaining of from difficult urination, bladder scan show 800 mL and, straight cath taken out 600 mL of urine. His urine analysis have some blood in it which could be due to infection or traumatic, as per staff they have difficulty inserting strength And they have to twisted which causes some blood to ooze out. Patient is already on finasteride, Flomax has been added. Started empirically on ceftriaxone. 12/10/2018 Patient was complaining of from sore throat probably due to intubation, no abdominal pain. He still have some discomfort at the surgical insertion site in his right inguinal, however improving and the wound looks healing. Vitas looks stable. Patient states he can Pee Without difficulty. Physical versus therapy recommended home health care 12/11/2018 Patient today feels better. Patient today told me for the first time he was not drinking enough fluid because of his sore throat and that he had lower abdominal tenderness and pain which time he has to be that's relieved with urination. That he was going every 2 hours however today he is going every 4 hours. His white cell count is decreasing today for the first time down to 15 K , however his creatinine was up to 1.4 and he was placed on IV fluids for possible dehydration. Nephrology had team has been consulted. Objective - Vital Signs Vital signs: Vital Signs Temp 97.7 F 12/11/18 12:00 Pulse 68 12/11/18 12:00 Resp 20 12/11/18 12:00 BP 119/77 12/11/18 12:00 Pulse Ox 98 12/11/18 12:00 Intake & Output 12/10/18 12/11/18 12/11/18 18:59 06:59 18:59 Intake Total 440 1090 Output Total 200 Balance 440 890 Weight 78.018 kg Intake: IV 850 Sodium Chloride 0.9% 1, 800 000 ml @ 100 mls/hr IV . Q10H [facility] Rx#:[id number] cefTRIAXone 1 gm In 50 Sodium Chloride 0.9% 50 ml @ 100 mls/hr IVPB Q24HR [facility] Rx#:[id number] Oral 440 240 Output: Urine 200 Other: Voiding Method Toilet Toilet Urinal Urinal # Voids 1 5 - Exam Patient is lying in the bed comfortably, no acute distress, awake alert and oriented.. HEENT: Normocephalic. Neck is supple. Pupils reactive. Nostrils clear. Oral cavity is moist. Ears reveal no drainage. Neck reveals no JVD, carotid bruits, or thyromegaly. CHEST EXAMINATION: Trachea is central. Symmetrical expansion. Lung asher clear to auscultation and percussion. CARDIAC: Normal S1, S2 with no gallops. No murmurs ABDOMEN: Soft. Bowel sounds normal. No organomegaly. No abdominal bruits. Extremities: reveal no edema. No clubbing or cyanosis Neurologically awake, alert, oriented x3 with well-coordinated movements. No focal deficits noted Skin: No rash or skin lesions. Psychiatric: Coperative. Nonsuicidal Musculoskeletal: No joint swelling or deformity. Normal range of motion. - Labs CBC & Chem 7: 12/11/18 06:15 12/11/18 06:15 Labs: Abnormal Lab Results - Last 24 Hours (Table) 12/10/18 12/10/18 12/10/18 Range/Units 14:46 16:21 21:36 WBC 17.5 H (3.8-10.6) k/uL RBC 3.68 L (4.30-5.90) m/uL Hgb 11.4 L (13.0-17.5) gm/dL Hct 35.1 L (39.0-53.0) % Neutrophils # 14.3 H (1.3-7.7) k/uL Monocytes # 1.1 H (0-1.0) k/uL Sodium (137-145) mmol/L BUN (9-20) mg/dL Creatinine (0.66-1.25) mg/dL Glucose (74-99) mg/dL POC Glucose (mg/dL) 127 H 179 H (75-99) mg/dL Urine Protein (Negative) Urine Glucose (UA) (Negative) Urine Blood (Negative) Ur Leukocyte Esterase (Negative) Urine WBC (0-5) /hpf Urine Bacteria (None) /hpf Urine Mucus (None) /hpf 12/10/18 12/11/18 12/11/18 Range/Units 23:10 05:47 06:15 WBC 15.9 H (3.8-10.6) k/uL RBC 3.32 L (4.30-5.90) m/uL Hgb 10.6 L (13.0-17.5) gm/dL Hct 31.8 L (39.0-53.0) % Neutrophils # 12.6 H (1.3-7.7) k/uL Monocytes # (0-1.0) k/uL Sodium 132 L (137-145) mmol/L BUN 22 H (9-20) mg/dL Creatinine 1.43 H (0.66-1.25) mg/dL Glucose 176 H (74-99) mg/dL POC Glucose (mg/dL) 153 H (75-99) mg/dL Urine Protein (Negative) Urine Glucose (UA) (Negative) Urine Blood (Negative) Ur Leukocyte Esterase (Negative) Urine WBC (0-5) /hpf Urine Bacteria (None) /hpf Urine Mucus (None) /hpf 12/11/18 12/11/18 12/11/18 Range/Units 06:15 11:33 12:00 WBC (3.8-10.6) k/uL RBC (4.30-5.90) m/uL Hgb (13.0-17.5) gm/dL Hct (39.0-53.0) % Neutrophils # (1.3-7.7) k/uL Monocytes # (0-1.0) k/uL Sodium 134 L (137-145) mmol/L BUN 23 H (9-20) mg/dL Creatinine 1.44 H (0.66-1.25) mg/dL Glucose 138 H (74-99) mg/dL POC Glucose (mg/dL) 282 H (75-99) mg/dL Urine Protein 1+ H (Negative) Urine Glucose (UA) Trace H (Negative) Urine Blood Small H (Negative) Ur Leukocyte Esterase Trace H (Negative) Urine WBC 10 H (0-5) /hpf Urine Bacteria Rare H (None) /hpf Urine Mucus Rare H (None) /hpf Assessment and Plan Assessment: Status post stent graft repair of abdominal aortic aneurysm measuring up to 6.5 cm. Abnormal urine analysis could be due to infection or traumatic straight cath. CELE, mostly pre-renal dehydration Urinary tract infection Coronary artery disease with history of stent placement History of [place] Hypertension Hyperlipidemia Possible COPD, and not in acute exacerbation Diabetes type 2. Zle-aubpqov-pgirwjuel. 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 History of basal cell skin cancer removed from forehead Anxiety/depression Previous history of smoking Obstructive sleep apnea not on CPAP at home Postoperative urine retention requiring straight cath patient. Possible BPH Resolving now. DVT prophylaxis as per surgical team Plan: Patient will be continued on aspirin statins, beta blockers and lisinopril. Continue with insulin sliding scale and home medications. And ceftriaxone for possible infection and call nephrology consult . Encourage ambulation and incentive spirometry. Otherwise continue the current management. Will follow up closely. Follow-up labs include WBC. Further recommendations based on the clinical course.
[2018-12-11] MEDS ORDERED: LEVOFLOXACIN 750MG-D5W PMX 750 MG in DEXTROSE/WATER 1 150ML.BAG IVPB ONE (13:00)
[2018-12-11 16:17] LABS: Glucose,Whole Blood 182 mg/dL (75-99)
[2018-12-11 21:25] LABS: Glucose,Whole Blood 200 mg/dL (75-99)
[2018-12-11] MEDS: ATORVASTATIN 10 MG TAB PO SCH (21:33)
[2018-12-11 23:11] LABS: Calcium 8.9 mg/dL (8.4-10.2); Potassium 4.3 mmol/L (3.5-5.1)
[2018-12-12] MEDS: LACTATED RINGERS 1,000 ML IV SCH (05:13)
[2018-12-12] MEDS: SODIUM CHLORIDE 0.9% 1,000 ML IV SCH ×2 (05:14→06:36)
[2018-12-12] MEDS: INSULIN ASPART (NovoLOG) 100 UNIT/ML VIAL SQ SCH ×2 (06:44→12:25)
[2018-12-12 06:45] LABS: Glucose,Whole Blood 123 mg/dL (75-99)
[2018-12-12 08:24] VITALS: TEMP 98.1
--- NOTE | 2018-12-12 09:21 | P.PN ---
Subjective Progress Note Date: 12/12/18 Principal diagnosis: AAA status post EVAR Patient states doing well Ambulating to the bathroom without difficulty. Has no complaints of pain. States wanting to go home. Objective - Vital Signs Vital signs: Vital Signs Temp 98.1 F 12/12/18 08:23 Pulse 80 12/12/18 08:23 Resp 18 12/12/18 08:23 BP 117/76 12/12/18 08:23 Pulse Ox 95 12/12/18 08:23 Intake & Output 12/11/18 12/12/18 12/12/18 18:59 06:59 18:59 Intake Total 1090 980 Output Total 200 300 200 Balance 890 -300 780 Weight 80.9 kg Intake: IV 850 800 Sodium Chloride 0.9% 1, 800 000 ml @ 50 mls/hr IV . Q20H [facility] Rx#:[id number] cefTRIAXone 1 gm In 50 800 Sodium Chloride 0.9% 50 ml @ 100 mls/hr IVPB Q24HR [facility] Rx#:[id number] Oral 240 180 Output: Urine 200 300 200 Other: Voiding Method Toilet Toilet Urinal Urinal # Voids 5 - Exam Bilateral groin sites with echymosis. There is no evidence of hematoma bilaterally. Patient has pulses DP bilaterally. - Labs CBC & Chem 7: 12/11/18 06:15 12/11/18 22:21 Labs: Abnormal Lab Results - Last 24 Hours (Table) 12/11/18 12/11/18 12/11/18 Range/Units 11:33 12:00 16:15 Sodium (137-145) mmol/L BUN (9-20) mg/dL Glucose (74-99) mg/dL POC Glucose (mg/dL) 282 H 182 H (75-99) mg/dL Urine Protein 1+ H (Negative) Urine Glucose (UA) Trace H (Negative) Urine Blood Small H (Negative) Ur Leukocyte Esterase Trace H (Negative) Urine WBC 10 H (0-5) /hpf Urine Bacteria Rare H (None) /hpf Urine Mucus Rare H (None) /hpf 12/11/18 12/11/18 12/12/18 Range/Units 21:19 22:21 06:24 Sodium 132 L (137-145) mmol/L BUN 28 H (9-20) mg/dL Glucose 171 H (74-99) mg/dL POC Glucose (mg/dL) 200 H 123 H (75-99) mg/dL Urine Protein (Negative) Urine Glucose (UA) (Negative) Urine Blood (Negative) Ur Leukocyte Esterase (Negative) Urine WBC (0-5) /hpf Urine Bacteria (None) /hpf Urine Mucus (None) /hpf Assessment and Plan (1) AAA (abdominal aortic aneurysm) without rupture Current Visit: Yes Status: Acute Priority: High Code(s): I71.4 - ABDOMINAL AORTIC ANEURYSM, WITHOUT RUPTURE SNOMED Code(s): 89744263 Plan: Ok for discharge home today if stable from IM/nephro standpoint. Follow up with Dr. Palacios in 1-2 weeks.
[2018-12-12 10:28] LABS: Basophils % (A) 0 %; Eosinophils # (A) 0.2 k/uL (0-0.7); Eosinophils % (A) 2 %; HCT 33.6 % (39.0-53.0); HGB 10.6 gm/dL (13.0-17.5); Lymphocytes # (A) 0.9 k/uL (1.0-4.8); Lymphocytes % (A) 6 %; MCH 30.7 pg (25.0-35.0); MCHC 31.6 g/dL (31.0-37.0); Mean Platelet Volume 6.8; Monocytes # (A) 0.8 k/uL (0-1.0); Monocytes % (A) 6 %; Neutrophils % (A) 85 %; Platelet Count 283 k/uL (150-450); RBC 3.46 m/uL (4.30-5.90); RDW 13.7 % (11.5-15.5); WBC 14.2 k/uL (3.8-10.6)
[2018-12-12] MEDS: TAMSULOSIN 0.4 MG CAP.ER.24H PO SCH (10:31)
[2018-12-12] MEDS: ASPIRIN 81 MG PO SCH (10:31)
[2018-12-12] MEDS: ESCITALOPRAM 10 MG TAB PO SCH (10:33)
[2018-12-12] MEDS: CYANOCOBALAMIN 500 MCG TAB PO SCH (10:33)
[2018-12-12 10:34] LABS: Calcium 8.9 mg/dL (8.4-10.2); Potassium 4.5 mmol/L (3.5-5.1)
[2018-12-12] MEDS: LINAGLIPTIN 5 MG TABLET PO SCH (10:34)
[2018-12-12] MEDS: METOPROLOL TARTRATE 25 MG TAB PO SCH (10:34)
[2018-12-12] MEDS: FINASTERIDE 5 MG TAB PO SCH (10:34)
[2018-12-12] MEDS: glipiZIDE 5 MG TAB PO SCH (10:34)
[2018-12-12 11:29] LABS: Glucose,Whole Blood 227 mg/dL (75-99)
[2018-12-12] MEDS: CHOLECALCIFEROL 1,000 UNIT TAB PO SCH (11:33)
[2018-12-12 12:18] VITALS: BP 116/78; PULSE 90; RESP 19
[2018-12-12] MEDS ORDERED: ALPRAZolam 0.25 MG TAB PO STA (14:43)
[2018-12-12] MEDS: DOCUSATE 100 MG CAP PO PRN (14:50)
--- NOTE | 2018-12-13 03:15 | CONS ---
CONSULTATION REASON FOR CONSULT: Renal failure. HISTORY OF PRESENT ILLNESS: Patient is an 83-year-old male who was admitted to the hospital for an abdominal aortic aneurysm which is status post repair and stent graft placement by Dr. Palacios. The patient states he had an angiogram/catheterization done a week ago and his creatinine was elevated. Currently we have a serum creatinine of 1.25. It had been as high as 1.4 yesterday and previously on 12/08/2018, we have a serum creatinine of 1.14. The patient was seen at our office by one of my associates a few months ago after which he did not follow up. Currently, blood pressure is slightly on the lower side but acceptable given his underlying aortic aneurysm repair. The patient is maintained on angiotensin receptor blockers. PAST MEDICAL HISTORY: Significant for chronic kidney disease NKF stage III, abdominal aortic aneurysm, hypertension, hyperlipidemia, type 2 diabetes, history of coronary artery disease, obstructive sleep apnea. PAST SURGICAL HISTORY: Recent abdominal aortic aneurysm stent graft on 12/07/2018, adenoidectomy, tonsillectomy, cardiac catheterization, coronary stent placement, basal cell cancer removal from forehead, colonoscopy, cataract surgery, coronary stent placement. SOCIAL HISTORY: Negative for smoking, drug abuse or alcohol abuse. Patient is a former smoker. ALLERGIES: None. MEDICATIONS: Medications at home prior to admission included Glucotrol, vitamin B12, aspirin, Lopressor, Januvia, Lipitor, vitamin D3, Lexapro, Cozaar, Antivert, Xanax, Proscar. PHYSICAL EXAMINATION: Patient is currently comfortable, awake, alert, oriented x3. He is not in any acute distress. Blood pressure was 116/78, heart rate 90 per minute. He is afebrile. Examination of the heart S1, S2. Examination lungs bilateral breath sounds are heard. Abdomen is soft, nontender. Examination lower extremities shows trace edema bilaterally. TYPING SECRETARY exam is grossly intact. LABS: Show sodium 132, potassium 4.5, BUN 23, serum creatinine 1.25, hemoglobin 10.6 g/dL. ASSESSMENT: 1. Acute kidney injury, mostly acute tubular necrosis, currently improved. Serum creatinine is down to 1.25. Patient has been as low as 1.14. He is maintained on angiotensin receptor blockers which I will continue. However, I will decrease the dose of Cozaar to 25 mg from 50 mg. 2. Abdominal aortic aneurysm status post abdominal aortic aneurysm repair and stent graft placement. 3. Pyuria, doubt significant urinary tract infection. 4. History of benign prostatic hypertrophy. 5. Type 2 diabetes. 6. Hypertension, currently well controlled. PLAN: Decrease Cozaar to 25 mg daily. The patient is stable for discharge from Nephrology standpoint. If his renal function worsens he can follow up as outpatient. Thank you for this consultation. MMVIOLET / IJN: [id number] /
[2018-12-13] MEDS ORDERED: LOSARTAN 25 MG TAB PO SCH (09:00)
== END 2018-12-12 16:45 | disposition home health service (06) | DRG 268 ==
LOC: 2ORMAIN 06:00 → 2SICU 10:55 → 3SCARD 12-09 05:15
PROVIDERS: ADMIT Surgery; ATTEND Surgery
PROC: 04V03DZ Restriction of Abdominal Aorta with Intraluminal Device, Percutaneous Approach (ICD-10-PCS; principal; 2018-12-07 08:18)
DX: I71.4 Abdominal aortic aneurysm, without rupture (principal); N17.0 Acute kidney failure with tubular necrosis; K57.92 Diverticulitis of intestine, part unspecified, without perforation or abscess without bleeding; E11.22 Type 2 diabetes mellitus with diabetic chronic kidney disease; E86.0 Dehydration; J44.9 Chronic obstructive pulmonary disease, unspecified; N18.3 Chronic kidney disease, stage 3 (moderate); I25.10 Atherosclerotic heart disease of native coronary artery without angina pectoris; E78.5 Hyperlipidemia, unspecified; G47.33 Obstructive sleep apnea (adult) (pediatric); I12.9 Hypertensive chronic kidney disease with stage 1 through stage 4 chronic kidney disease, or unspecified chronic kidney disease; I25.2 Old myocardial infarction; N40.1 Benign prostatic hyperplasia with lower urinary tract symptoms; R33.8 Other retention of urine; F32.9 Major depressive disorder, single episode, unspecified; F41.9 Anxiety disorder, unspecified; J02.9 Acute pharyngitis, unspecified; D72.829 Elevated white blood cell count, unspecified; Z79.82 Long term (current) use of aspirin; Z79.84 Long term (current) use of oral hypoglycemic drugs; Z79.899 Other long term (current) drug therapy; Z95.5 Presence of coronary angioplasty implant and graft; Z86.73 Personal history of transient ischemic attack (TIA), and cerebral infarction without residual deficits; Z85.828 Personal history of other malignant neoplasm of skin; Z87.891 Personal history of nicotine dependence; Z98.42 Cataract extraction status, left eye; Z98.41 Cataract extraction status, right eye; Z96.1 Presence of intraocular lens; Z81.1 Family history of alcohol abuse and dependence; Z82.49 Family history of ischemic heart disease and other diseases of the circulatory system; Z83.3 Family history of diabetes mellitus
CPT/HCPCS: 34705; 71045; 80048; 81001; 85025; 85347; 86850; 86900; 86901

== ENCOUNTER 2019-03-13 08:26 | Observation (INO) | payer MEDICARE, BC ==
[2019-03-13] MEDS ORDERED: NITROGLYCERIN OINT 1 INCH/GM PACKET TOPICAL STA (08:47)
[2019-03-13] MEDS ORDERED: ASPIRIN 81 MG PO STA (08:47)
--- NOTE | 2019-03-13 08:52 | ED ---
General Adult HPI - General Chief complaint: Chest Pain Stated complaint: chest pain Time Seen by Provider: 03/13/19 08:29 Source: patient, family, RN notes reviewed Mode of arrival: ambulatory Limitations: no limitations - History of Present Illness Initial comments: Patient is a pleasant 83-year-old male presenting to the emergency Department with complaints of chest discomfort. Symptoms have been intermittent over the past couple of weeks. 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 Patient states symptoms started again today. Patient took nitroglycerin with improvement of symptoms. Discomfort is now mild. Patient has minimal associated nausea and dyspnea. No diaphoresis. Discomfort feels like pressure. No radiation. Patient does have history of similar symptoms in March with heart attack and stent placement. - Related Data Home Medications Medication Instructions Recorded Confirmed glipiZIDE [Glucotrol] 5 mg PO BID 10/30/14 03/13/19 Cyanocobalamin (Vitamin B-12) 5,000 mcg PO DAILY 04/17/17 03/13/19 [Vitamin B-12] sitaGLIPtin [Januvia] 50 mg PO DAILY 07/18/17 03/13/19 Atorvastatin [Lipitor] 40 mg PO DAILY 11/04/18 03/13/19 Cholecalciferol [Vitamin D3 (25 5,000 unit PO DAILY 11/04/18 03/13/19 Mcg = 1000 Iu)] Escitalopram [Lexapro] 10 mg PO DAILY 11/04/18 03/13/19 Losartan [Cozaar] 50 mg PO DAILY 11/04/18 03/13/19 ALPRAZolam [Xanax] 0.25 mg PO Q8HR PRN 12/01/18 03/13/19 Finasteride [Proscar] 5 mg PO DAILY 12/01/18 03/13/19 Previous Rx's Medication Instructions Recorded Aspirin 81 mg PO DAILY 04/20/17 Metoprolol Tartrate [Lopressor] 25 mg PO BID #60 tab 04/20/17 Meclizine [Antivert] 25 mg PO TID PRN #14 tab 11/05/18 Tamsulosin [Flomax] 0.4 mg PO PC-BRKFST #30 cap.er.24h 12/12/18 Allergies Allergy/AdvReac Type Severity Reaction Status Date / Time No Known Allergies Allergy Verified 03/13/19 08:52 Review of Systems ROS Statement: Those systems with pertinent positive or pertinent negative responses have been documented in the HPI. ROS Other: All systems not noted in ROS Statement are negative. Constitutional: Denies: fever Eyes: Denies: eye pain ENT: Denies: ear pain Respiratory: Reports: as per HPI Cardiovascular: Reports: as per HPI Endocrine: Reports: fatigue Gastrointestinal: Denies: vomiting Genitourinary: Denies: dysuria Musculoskeletal: Denies: arthralgia Skin: Denies: rash Past Medical History Past Medical History: Cancer, CVA/TIA, Diabetes Mellitus, Hyperlipidemia, Hypertension, Myocardial Infarction (MS), Sleep Apnea/CPAP/BIPAP, Vascular Disorder Additional Past Medical History / Comment(s): hx sleep apnea-no cpap, hx chica nasim, TIA 10/2014- no effects, AAA followed by Dr. Mccarthy, diverticulitis, hx skin cancer Last Myocardial Infarction Date:: 04/17/17 History of Any Multi-Drug Resistant Organisms: None Reported Past Surgical History: Adenoidectomy, Heart Catheterization With Stent, Tonsillectomy Additional Past Surgical History / Comment(s): colonoscopy, basal cell cancer removed from forehead, one cardiac stent Past Anesthesia/Blood Transfusion Reactions: Motion Sickness Additional Past Anesthesia/Blood Transfusion Reaction / Comment(s): . Date of Last Stent Placement:: 03/2017 Past Psychological History: Anxiety, Depression Smoking Status: Former smoker Past Alcohol Use History: Occasional Past Drug Use History: None Reported - Past Family History Brother(s) Family Medical History: No Reported History Sister(s) Family Medical History: No Reported History Son(s) Family Medical History: No Reported History Father Family Medical History: Coronary Artery Disease (CAD), Diabetes Mellitus Additional Family Medical History / Comment(s): Father had carotid artery occlusion and had a procedure to remove. Father was an alcoholic. He of a MS at 76-77yrs. Mother Family Medical History: Deep Vein Thrombosis (DVT), Pulmonary Embolus Additional Family Medical History / Comment(s): Mother at 42 yrs of age of "blood clot" in the lung and it went to the heart. General Exam Limitations: no limitations General appearance: alert, in no apparent distress Head exam: Present: atraumatic Eye exam: Present: normal appearance Neck exam: Present: normal inspection Respiratory exam: Present: normal lung sounds bilaterally. Absent: chest wall tenderness Cardiovascular Exam: Present: regular rate, normal rhythm Expanded Peripheral pulses: 2+: Radial (R), Radial (L), Dorsalis Pedis (R), Dorsalis Pedis (L) GI/Abdominal exam: Present: soft. Absent: distended, tenderness, pulsatile mass Extremities exam: Present: normal inspection. Absent: pedal edema, calf tenderness Neurological exam: Present: alert Psychiatric exam: Present: normal affect, normal mood Skin exam: Present: normal color Course Vital Signs 03/13/19 03/13/19 03/13/19 08:29 08:51 09:25 Temperature 97.5 F L Pulse Rate 62 56 L Respiratory 20 16 Rate Blood Pressure 149/80 139/74 147/83 O2 Sat by Pulse 98 98 98 Oximetry 03/13/19 10:39 Temperature 98 F Pulse Rate 54 L Respiratory 18 Rate Blood Pressure 144/89 O2 Sat by Pulse 98 Oximetry EKG Findings - EKG Comments: EKG Findings:: Sinus bradycardia 58. NH 164. QRS 84. QT 466. QTc 457. Left axis. Normal QRS. No acute ST change. Medical Decision Making - Medical Decision Making Patient reevaluated and resting comfortably in bed. Patient and family updated on results and plan. Case was discussed in detail with Dr. Parker, who will admit covering for Dr. Contreras. - Lab Data Result diagrams: 03/13/19 08:44 03/13/19 08:44 Lab Results 03/13/19 03/13/19 03/13/19 Range/Units 08:44 08:44 08:44 WBC 6.6 (3.8-10.6) k/uL RBC 4.94 (4.30-5.90) m/uL Hgb 12.8 L (13.0-17.5) gm/dL Hct 43.3 (39.0-53.0) % MCV 87.6 (80.0-100.0) fL MCH 25.9 (25.0-35.0) pg MCHC 29.5 L (31.0-37.0) g/dL RDW 15.1 (11.5-15.5) % Plt Count 260 (150-450) k/uL Neutrophils % (Manual) 61 % Lymphocytes % (Manual) 28 % Monocytes % (Manual) 9 % Eosinophils % (Manual) 2 % Neutrophils # (Manual) 4.03 (1.3-7.7) k/uL Lymphocytes # (Manual) 1.85 (1.0-4.8) k/uL Monocytes # (Manual) 0.59 (0-1.0) k/uL Eosinophils # (Manual) 0.13 (0-0.7) k/uL Nucleated RBCs 0 (0-0) /100 WBC Manual Slide Review Performed RBC Morphology Normal PT (9.0-12.0) sec INR (<1.2) APTT (22.0-30.0) sec Sodium 138 (137-145) mmol/L Potassium 4.5 (3.5-5.1) mmol/L Chloride 104 (98-107) mmol/L Carbon Dioxide 27 (22-30) mmol/L Anion Gap 7 mmol/L BUN 19 (9-20) mg/dL Creatinine 1.46 H (0.66-1.25) mg/dL Est GFR (CKD-EPI)AfAm 51 (>60 ml/min/1.73 sqM) Est GFR (CKD-EPI)NonAf 45 (>60 ml/min/1.73 sqM) Glucose 111 H (74-99) mg/dL Calcium 9.2 (8.4-10.2) mg/dL Magnesium 1.6 (1.6-2.3) mg/dL Total Bilirubin 0.6 (0.2-1.3) mg/dL AST 29 (17-59) U/L ALT 23 (21-72) U/L Alkaline Phosphatase 117 (38-126) U/L Creatine Kinase 50 L (55-170) U/L CK-MB (CK-2) 0.5 (0.0-2.4) ng/mL Troponin I <0.012 (0.000-0.034) ng/mL Total Protein 7.2 (6.3-8.2) g/dL Albumin 3.6 (3.5-5.0) g/dL 03/13/19 Range/Units 08:44 WBC (3.8-10.6) k/uL RBC (4.30-5.90) m/uL Hgb (13.0-17.5) gm/dL Hct (39.0-53.0) % MCV (80.0-100.0) fL MCH (25.0-35.0) pg MCHC (31.0-37.0) g/dL RDW (11.5-15.5) % Plt Count (150-450) k/uL Neutrophils % (Manual) % Lymphocytes % (Manual) % Monocytes % (Manual) % Eosinophils % (Manual) % Neutrophils # (Manual) (1.3-7.7) k/uL Lymphocytes # (Manual) (1.0-4.8) k/uL Monocytes # (Manual) (0-1.0) k/uL Eosinophils # (Manual) (0-0.7) k/uL Nucleated RBCs (0-0) /100 WBC Manual Slide Review RBC Morphology PT 10.4 (9.0-12.0) sec INR 1.0 (<1.2) APTT 25.0 (22.0-30.0) sec Sodium (137-145) mmol/L Potassium (3.5-5.1) mmol/L Chloride (98-107) mmol/L Carbon Dioxide (22-30) mmol/L Anion Gap mmol/L BUN (9-20) mg/dL Creatinine (0.66-1.25) mg/dL Est GFR (CKD-EPI)AfAm (>60 ml/min/1.73 sqM) Est GFR (CKD-EPI)NonAf (>60 ml/min/1.73 sqM) Glucose (74-99) mg/dL Calcium (8.4-10.2) mg/dL Magnesium (1.6-2.3) mg/dL Total Bilirubin (0.2-1.3) mg/dL AST (17-59) U/L ALT (21-72) U/L Alkaline Phosphatase (38-126) U/L Creatine Kinase (55-170) U/L CK-MB (CK-2) (0.0-2.4) ng/mL Troponin I (0.000-0.034) ng/mL Total Protein (6.3-8.2) g/dL Albumin (3.5-5.0) g/dL - Radiology Data Radiology results: report reviewed (Chest x-ray shows no acute process) Disposition Clinical Impression: Chest pain Disposition: ADMITTED IP TO THIS HOSP Is patient prescribed a controlled substance at d/c from ED?: No Referrals: Chinedu Contreras MD [Primary Care Provider] - 1-2 days Decision Time: 11:17
[2019-03-13 09:16] LABS: Albumin 3.6 g/dL (3.5-5.0); Calcium 9.2 mg/dL (8.4-10.2); Magnesium 1.6 mg/dL (1.6-2.3); Potassium 4.5 mmol/L (3.5-5.1); Total Bilirubin 0.6 mg/dL (0.2-1.3); Total Protein 7.2 g/dL (6.3-8.2)
--- NOTE | 2019-03-13 09:24 | XR ---
EXAMINATION TYPE: XR chest 2V DATE OF EXAM: 03/13/2019 COMPARISON: 12/10/2018 HISTORY: Intermittent chest pain TECHNIQUE: Frontal and lateral views of the chest are obtained. FINDINGS: There is no focal air space opacity, pleural effusion, or pneumothorax seen. Lateral view suggests a small retrocardiac hiatal hernia. The cardiac silhouette size is within normal limits. The osseous structures are intact. There is generalized osseous demineralization. IMPRESSION: No acute cardiopulmonary process. Suspected small hiatal hernia.
[2019-03-13 09:25] LABS: HCT 43.3 % (39.0-53.0); HGB 12.8 gm/dL (13.0-17.5); MCH 25.9 pg (25.0-35.0); MCHC 29.5 g/dL (31.0-37.0); MCV 87.6 fL (80.0-100.0); Mean Platelet Volume 6.9; Platelet Count 260 k/uL (150-450); RBC 4.94 m/uL (4.30-5.90); RDW 15.1 % (11.5-15.5); WBC 6.6 k/uL (3.8-10.6)
[2019-03-13 10:05] LABS: Creatine Kinase MB 0.5 ng/mL (0.0-2.4); Troponin I <0.012 ng/mL (0.000-0.034)
[2019-03-13 10:17] LABS: Monocytes # (M) 0.59 k/uL (0-1.0); Nucleated Red Blood Cells 0 /100 WBC (0-0); Total Cells Counted 100
[2019-03-13 10:26] LABS: Prothrombin Time 10.4 sec (9.0-12.0)
[2019-03-13 10:50] LABS: Eosinophils # (M) 0.13 k/uL (0-0.7); Lymphocytes # (M) 1.85 k/uL (1.0-4.8); Neutrophils # (M) 4.03 k/uL (1.3-7.7); Neutrophils % (M) 61 %
[2019-03-13] MEDS ORDERED: NITROGLYCERIN SL TABS 0.4 MG TAB SUBLINGUAL PRN (11:18)
[2019-03-13] MEDS ORDERED: ALPRAZolam 0.25 MG TAB PO PRN (11:18)
[2019-03-13 12:23] VITALS: BMI 25.8
--- NOTE | 2019-03-13 14:01 | P.CRDCN ---
History of Present Illness History of present illness: This is a pleasant 83-year-old male past medical history significant for coronary artery disease status post stent placement to the OM in 2016, recent endograft stent placement to the abdominal aortic aneurysm, aorto-femoral bypass, diabetes mellitus, hypertension, dyslipidemia and sleep apnea. He follows in the opposite Dr. Carter. We have been asked to see him in consultati on secondary to chest discomfort. He states he underwent his aortic aneurysm and aorto-femoral bypass procedures in November 2018. Since that time he has been feeling increasingly fatigued and is requiring much more rest than usual. He also describes intermittent pains in the chest described as a tightness. The pains are worse when he takes a deep breath and improve after he takes SL nitro. On Tuesday he was walking though his house carrying a box of pizza and he tripped and fell, causing him to fall forward. After falling his reoccurrence of chest pains has increased. On exam he is sitting up in the chair and pain is reproducible with palpation of the left anterior chest wall. There is no ra diation to the arm, back, neck or jaw. He does complain of chronic low back pain that has been there off and on for many years. There is no associated shortness of breath, dizziness, palpitations, nausea, vomiting or diaphoresis. EKG reveals sinus bradycardia heart rate [address] or T-wave abnormalities. Chest xray is negative for an acute cardiopulmonary process with small hiatal hernia. Laboratory data reviewed, WBC 6.6, hemoglobin 12.8, platelets 260, sodium 138, potassium 4.5, creatinine 1.46, GFR 45, magnesium 1.6, cardiac enzymes negative 1. Current cardiac medications include metoprolol 25 mg twice a day, losartan 50 mg daily, atorvastatin 40 mg daily and aspirin 81 mg daily. Most recent stress test performed in the office June 2018 as a Cardiolite stress test which revealed a fixed defect in the inferior and inferolateral wall with no evidence of stress-induced ischemia. Most recent echocardiogram obtained in the office June 2018 reveals preserved LV systolic function with ejection fraction 55%, moderate mitral regurgitation with a mean gradient across the valve of 2 mmHg and mild mitral annular calcification. At the time of my exam: CONSTITUTIONAL: Denies fever. Denies chills. EYES: Denies blurred vision. Denies vision changes. Denies eye pain. EARS, NOSE, MOUTH & THROAT: Denies headache. Denies sore throat. Denies ear pain. CARDIOVASCULAR: Complains of chest pain. Denies shortness of breath. Denies orthopnea. Denies PND. Denies palpitations. RESPIRATORY: Denies cough. GASTROINTESTINAL: Denies abdominal pain. Denies diarrhea. Denies constipation. Denies nausea. Denies vomiting. MUSCULOSKELETAL: Denies myalgias. INTEGUMENTARY: Denies pruitis. Denies rash. NEUROLOGIC: Denies numbness. Denies tingling. Denies weakness. PSYCHIATRIC: Denies anxiety. Denies depression. ENDOCRINE: Complains of fatigue. Denies weight change. Denies polydipsia. Denies polyurina. GENITOURINARY: Denies burning, hematuria or urgency with micturation. HEMATOLOGIC: Denies history of anemia. Denies bleeding. Blood pressure 141/91 heart rate 57 afebrile maintaining oxygen saturation on room air GENERAL: This is a 83-year-old male in no apparent distress at the time of my examination. HEENT: Head is atraumatic, normocephalic. Pupils are equal, round. Sclerae anicteric. Conjunctivae are clear. Mucous membranes of the mouth are moist. Neck is supple. There is no jugular venous distention. No carotid bruit is heard. LUNGS: Clear to auscultation no wheezes, rales or rhonchi. Reproducible chest discomfort over the left precordial region. HEART: Regular rate and rhythm with systolic ejection murmur at the left sternal border, no rubs or gallops. S1 and S2 heard. ABDOMEN: Soft, nontender. Bowel sounds are heard. No organomegaly noted. EXTREMITIES: No evidence of peripheral edema and no calf tenderness noted. VASCULAR: Radial and dorsalis pedis pulses palpated, no evidence of clubbing. NEUROLOGIC: Patient is awake, alert and oriented x3. ASSESSMENT Chest pain, pleuritic. Atypical for angina. No EKG evidence of ischemia. Recent stress test in the office with no evidence for reversible ischemia. Possible musculoskeletal strain secondary to fall Fatigue History of coronary artery disease status post stent placement to the 2017 Recent repair of abdominal aortic aneurysm Peripheral vascular disease status post aortofemoral bypass Hypertension Dyslipidemia Diabetes mellitus PLAN Symptoms are atypical for angina. Continue to obtain serial cardiac enzymes to rule out an acute event. Obtain 2-D echocardiogram and Doppler study to assess cardiac structure and function. We will continue to follow and make recommendations accordingly. Ongoing medical management. Thank you kindly for this consultation. Nurse Practitioner note has been reviewed, I agree with a documented findings and plan of care. Patient was seen and examined. Past Medical History Past Medical History: Coronary Artery Disease (CAD), Cancer, CVA/TIA, Diabetes Mellitus, Hyperlipidemia, Hypertension, Myocardial Infarction (OR), Prostate Disorder, Sleep Apnea/CPAP/BIPAP, Vascular Disorder Additional Past Medical History / Comment(s): NIDDM type II, TIA in 2014, MICHAEL without device, CKD stage III, chronic low back pain, migraines in past, vertigo, balance issues, fall, BPH, benign colon polyp, diverticular disease, vascular disease with surgery-AAA repair and R leg bypass, skin cancer with removal. Last Myocardial Infarction Date:: 04/17/17 History of Any Multi-Drug Resistant Organisms: None Reported Past Surgical History: Adenoidectomy, Heart Catheterization With Stent, Tonsillectomy Additional Past Surgical History / Comment(s): 12/07/18 endovascular repair/stent graft infra renal aorta, R leg bypass surgery after AAA repair at [facility], colonoscopy/polypectomy, basal cell cancer removed from forehead, bilateral cataract removals/lens implants Past Anesthesia/Blood Transfusion Reactions: Motion Sickness Additional Past Anesthesia/Blood Transfusion Reaction / Comment(s): . Date of Last Stent Placement:: 03/2017 Smoking Status: Former smoker - Past Family History Brother(s) Family Medical History: No Reported History Sister(s) Family Medical History: No Reported History Son(s) Family Medical History: No Reported History Father Family Medical History: Diabetes Mellitus, Myocardial Infarction (OR), Vascular Disorder Additional Family Medical History / Comment(s): Father of a OR at the age of 76 or 77yrs. He was an alcoholic. Mother Family Medical History: Deep Vein Thrombosis (DVT), Pulmonary Embolus Additional Family Medical History / Comment(s): Mother at 42 yrs of age of "blood clot" in the lung and it went to the heart. Medications and Allergies Home Medications Medication Instructions Recorded Confirmed Type glipiZIDE [Glucotrol] 5 mg PO BID 10/30/14 03/13/19 History Cyanocobalamin (Vitamin B-12) 5,000 mcg PO DAILY 04/17/17 03/13/19 History [Vitamin B-12] Aspirin 81 mg PO DAILY 04/20/17 03/13/19 Rx Metoprolol Tartrate [Lopressor] 25 mg PO BID #60 tab 04/20/17 03/13/19 Rx sitaGLIPtin [Januvia] 50 mg PO DAILY 07/18/17 03/13/19 History Atorvastatin [Lipitor] 40 mg PO DAILY 11/04/18 03/13/19 History Cholecalciferol [Vitamin D3 (25 5,000 unit PO DAILY 11/04/18 03/13/19 History Mcg = 1000 Iu)] Escitalopram [Lexapro] 10 mg PO DAILY 11/04/18 03/13/19 History Losartan [Cozaar] 50 mg PO DAILY 11/04/18 03/13/19 History Meclizine [Antivert] 25 mg PO TID PRN #14 tab 11/05/18 03/13/19 Rx ALPRAZolam [Xanax] 0.25 mg PO Q8HR PRN 12/01/18 03/13/19 History Finasteride [Proscar] 5 mg PO DAILY 12/01/18 03/13/19 History Tamsulosin [Flomax] 0.4 mg PO PC-BRKFST #30 cap.er.24h 12/12/18 03/13/19 Rx Allergies Allergy/AdvReac Type Severity Reaction Status Date / Time No Known Allergies Allergy Verified 03/13/19 08:52 Physical Exam Vitals: Vital Signs Temp Pulse Pulse Resp BP BP Pulse Ox 03/13/19 12:00 97.4 F L 57 L 18 141/91 97 03/13/19 11:31 54 L 18 139/84 99 03/13/19 10:39 98 F 54 L 18 144/89 98 03/13/19 09:25 147/83 98 03/13/19 08:51 56 L 16 139/74 98 03/13/19 08:29 97.5 F L 62 20 149/80 98 Intake and Output 03/12/19 03/13/19 03/13/19 22:59 06:59 14:59 Other: Weight 77.111 kg Results 03/13/19 08:44 03/13/19 08:44 Cardiac Enzymes 03/13/19 03/13/19 Range/Units 08:44 08:44 AST 29 (17-59) U/L CK-MB (CK-2) 0.5 (0.0-2.4) ng/mL Troponin I <0.012 (0.000-0.034) ng/mL Coagulation 03/13/19 Range/Units 08:44 PT 10.4 (9.0-12.0) sec APTT 25.0 (22.0-30.0) sec CBC 03/13/19 Range/Units 08:44 WBC 6.6 (3.8-10.6) k/uL RBC 4.94 (4.30-5.90) m/uL Hgb 12.8 L (13.0-17.5) gm/dL Hct 43.3 (39.0-53.0) % Plt Count 260 (150-450) k/uL Comprehensive Metabolic Panel 03/13/19 Range/Units 08:44 Sodium 138 (137-145) mmol/L Potassium 4.5 (3.5-5.1) mmol/L Chloride 104 (98-107) mmol/L Carbon Dioxide 27 (22-30) mmol/L BUN 19 (9-20) mg/dL Creatinine 1.46 H (0.66-1.25) mg/dL Glucose 111 H (74-99) mg/dL Calcium 9.2 (8.4-10.2) mg/dL AST 29 (17-59) U/L ALT 23 (21-72) U/L Alkaline Phosphatase 117 (38-126) U/L Total Protein 7.2 (6.3-8.2) g/dL Albumin 3.6 (3.5-5.0) g/dL Current Medications Generic Name Dose Route Start Last Admin Trade Name Freq PRN Reason Stop Dose Admin Alprazolam 0.25 mg 03/13/19 11:18 Xanax PO Q8HR PRN Anxiety Aspirin 325 mg 03/14/19 09:00 Aspirin PO DAILY [facility] Atorvastatin Calcium 40 mg 03/14/19 09:00 Lipitor PO DAILY [facility] Glipizide 5 mg 03/13/19 17:30 Glucotrol PO AC-BID [facility] Linagliptin 5 mg 03/14/19 09:00 Tradjenta PO DAILY [facility] Losartan Potassium 50 mg 03/14/19 09:00 Cozaar PO DAILY [facility] Metoprolol Tartrate 25 mg 03/13/19 21:00 Lopressor PO BID KAMRAN Nitroglycerin 1 inch 03/13/19 18:00 Nitro-Bid Oint TOPICAL Q6HR KAMRAN Nitroglycerin 0.4 mg 03/13/19 11:18 Nitrostat SUBLINGUAL Q5M PRN Chest Pain Intake and Output 03/12/19 03/13/19 03/13/19 22:59 06:59 14:59 Other: Weight 77.111 kg Patient Weight 03/14/19 06:59 Weight 77.111 kg 03/13/19 08:44 03/13/19 08:44
[2019-03-13 16:48] LABS: Glucose,Whole Blood 220 mg/dL (75-99)
[2019-03-13] MEDS: NITROGLYCERIN OINT 1 INCH/GM PACKET TOPICAL SCH (18:24)
[2019-03-13] MEDS: INSULIN ASPART (NovoLOG) 100 UNIT/ML VIAL SQ SCH ×2 (18:24→21:24)
[2019-03-13] MEDS: glipiZIDE 5 MG TAB PO SCH (18:24)
[2019-03-13 20:26] LABS: Glucose,Whole Blood 80 mg/dL (75-99)
[2019-03-13] MEDS: METOPROLOL TARTRATE 25 MG TAB PO SCH (21:23)
--- NOTE | 2019-03-13 23:03 | HP ---
HISTORY AND PHYSICAL DATE OF ADMISSION AND SERVICE: 03/13/2019 PRESENTING COMPLAINT: Chest pain. HISTORY OF PRESENTING COMPLAINT: This is an 83-year-old patient of Dr. Chinedu Contreras whose chronic stable medical conditions include diabetes, hypertension, hyperlipidemia, obstructive sleep apnea. He does not use a CPAP machine. The patient had a prior myocardial infarction. The patient has a multitude of symptoms and he keeps jumping from one symptom to the other. States he has had a left-sided chest pain for a few months but now is presenting with a mixture of symptoms, including feeling dizzy, just feeling off, not really short of breath but has a low-grade fever, occasional cough. Bowels and urine okay. Appetite is okay. He does also get dizzy. No focal weakness. His chest pain has no particular pattern, not related to exertion or activity. It is on the left side, precordial. REVIEW OF SYSTEMS: CONSTITUTIONAL: Tired. HEENT: As above. RESPIRATORY: As above. CARDIOVASCULAR: As above. GASTROINTESTINAL: None. GENITOURINARY: None. MUSCULOSKELETAL: None. DERMATOLOGICAL: None. HEMATOLOGICAL: None. LYMPHATICS: None. PSYCHIATRY: Very anxious. NEUROLOGICAL: None. PAST MEDICAL HISTORY: 1. Coronary artery disease. 2. Diabetes. 3. Hyperlipidemia. 4. Hypertension. 5. Obstructive sleep apnea without CPAP machine. 6. TIA in 2014. 7. CKD, stage III. 8. Chronic low back pain. 9. Vertical balance issues. 10.BPH. 11.Diverticulosis. 12.Vascular disease with surgical AAA repair. 13.Right leg arterial bypass. 14.Skin cancer removal. PAST SURGICAL HISTORY: 1. Cardiac cath with stent. 2. Adenoidectomy. 3. Tonsillectomy. 4. In November of 2018 endovascular stent graft infrarenal aorta repair. 5. Right leg bypass surgery after AAA repair at [facility]. 6. Colonoscopy with polypectomy. 7. Basal cell cancer removed from forehead. 8. Bilateral cataract removal, lens implants. PSYCH HISTORY: Anxiety, depression. SOCIAL HISTORY: . Has Home Health. Patient has a cane. Patient smoked for about 20 years, a pack a day, stopped in . Lives with his . Alcohol occasionally. FAMILY HISTORY: Father of heart attack at age of 76. Also there was diabetes. Son also was an alcoholic. HOME MEDICATIONS: 1. Januvia 50 mg p.o. daily. 2. Glucotrol 5 mg b.i.d. 3. Flomax 0.4 mg before breakfast. 4. Lopressor 25 mg b.i.d. 5. Antivert 25 mg p.o. t.i.d. p.r.n. 6. Cozaar 50 mg p.o. daily. 7. Proscar 5 mg p.o. daily. 8. Lexapro 10 mg p.o. daily. 9. Vitamin B12 5000 mcg p.o. daily. 10.Vitamin D3 5000 units p.o. daily. 11.Lipitor 40 mg p.o. daily. 12.Aspirin 81 mg p.o. daily. 13.Xanax 0.25 p.o. q.8 p.r.n. ALLERGIES: NONE. PHYSICAL EXAMINATION: VITAL SIGNS ON PRESENTATION: Temperature 97.5, pulse 62, respiration 20, blood pressure 129/80, pulse ox 98% on room air. GENERAL APPEARANCE: Average build. Lying in bed, rather anxious-appearing. EYES: Pupils equal. Conjunctivae normal. HEENT: External appearance of nose and ears normal. Oral cavity normal. NECK: JVD not raised. Mass not palpable. RESPIRATORY: Effort normal. LUNGS: Fair air entry. CARDIOVASCULAR: First and second sounds normal. No edema. ABDOMEN: Soft, non-tender. Liver and spleen not palpable. LYMPHATIC: No lymph node palpable in neck or axillae. PSYCHIATRY: Alert and oriented x3. Mood and affect anxious-appearing. NEUROLOGICAL: Pupils equal. Cranial nerves grossly intact. Power and sensation grossly intact. INVESTIGATIONS: White count 6.6, hemoglobin 12.8, potassium 4.5, BUN 19, creatinine 1.46. Troponin x3 negative. EKG tracing, personally reviewed by me, shows normal sinus rhythm and some nonspecific T-wave changes. Chest x-ray film, personally reviewed by me, shows questionable infiltrate on the right base. ASSESSMENT: 1. This is a patient who presented with a multitude of symptoms, jumping from one symptom to another. Patient does complain of a very slight cough and low-grade fever at home, though none documented here. There is no white count. The patient may have underlying bronchitis; could be viral with associated symptoms of pneumonitis, including feeling dizzy and lightheaded. 2. Rule out orthostatic hypotension. 3. Diabetes mellitus, type 2, on oral hypoglycemic. 4. Essential hypertension. 5. Hyperlipidemia. 6. Obstructive sleep apnea. Does not use a CPAP machine. 7. Coronary artery disease with prior history of myocardial infarction. 8. Peripheral arterial disease. 9. Chronic kidney disease, stage III, from nephrosclerosis. 10.Colonic diverticulosis. PLAN: Will check patient's orthostatics. Other home medications are resumed. Care was discussed with the patient. For his uncontrolled anxiety, will start the patient on Paxil and stop the Lexapro. Patient will be watched overnight and hopefully can be discharged tomorrow. MMODL / IJN: [id number] /
[2019-03-14] MEDS: NITROGLYCERIN OINT 1 INCH/GM PACKET TOPICAL SCH ×2 (00:28→04:04)
[2019-03-14 01:10] LABS: Cholesterol 93 mg/dL (<200); HDL Cholesterol 33 mg/dL (40-60); LDL Cholesterol,Calculated 41 mg/dL (0-99); Triglycerides 93 mg/dL (<150)
[2019-03-14 07:02] LABS: Glucose,Whole Blood 135 mg/dL (75-99)
[2019-03-14] MEDS: INSULIN ASPART (NovoLOG) 100 UNIT/ML VIAL SQ SCH (07:32)
[2019-03-14 07:50] VITALS: RESP 16; TEMP 97.6
--- NOTE | 2019-03-14 08:03 | ECHOF ---
Referral Reason:cp MEASUREMENTS -------- HEIGHT: 172.7 cm WEIGHT: 77.1 kg BP: IVSd: 1.4 cm (0.6 - 1.1) LVIDd: 3.2 cm (3.9 - 5.3) LVPWd: 1.3 cm (0.6 - 1.1) IVSs: 1.9 cm LVIDs: 1.8 cm LVPWs: 2.0 cm Ao Diam: 3.7 cm (2.0 - 3.7) AV Cusp: 1.8 cm (1.5 - 2.6) LA Diam: 3.3 cm (2.7 - 3.8) MV E Andreas: 0.69 m/s MV DecT: 288 ms MV A Andreas: 0.96 m/s MV E/A Ratio: 0.72 RAP: 5.00 mmHg RVSP: 28.31 mmHg FINDINGS -------- Sinus rhythm. This was a technically difficult study with suboptimal views. The left ventricular size is normal. There is mild concentric left ventricular hypertrophy. Overa ll left ventricular systolic function is normal with, an EF between 55 - 60 %. The right ventricle is normal in size. The left atrial size is normal. The right atrial size is normal. Lumason used Interatrial and interventricular septum intact. The aortic valve is trileaflet and appears structurally normal. The mitral valve is normal. There is trace mitral regurgitation. The tricuspid valve appears structurally normal. Trace tricuspid regurgitation present. There is no evidence of pulmonary hypertension. The right ventricular systolic pressure, as measured by Dopp ler, is 28.31mmHg. There is no pulmonic regurgitation present. The aortic root size is normal. IVC Not well visulized. There is no pericardial effusion. CONCLUSIONS -------- 1. Sinus rhythm. 2. This was a technically difficult study with suboptimal views. 3. The left ventricular size is normal. 4. There is mild concentric left ventricular hypertrophy. 5. Overall left ventricular systolic function is normal with, an EF between 55 - 60 %. 6. The right ventricle is normal in size. 7. The left atrial size is normal. 8. The right atrial size is normal. 9. Lumason used 10. Interatrial and interventricular septum intact. 11. The aortic valve is trileaflet and appears structurally normal. 12. The mitral valve is normal. 13. There is trace mitral regurgitation. 14. The tricuspid valve appears structurally normal. 15. Trace tricuspid regurgitation present. 16. There is no evidence of pulmonary hypertension. 17. The right ventricular systolic pressure, as measured by Doppler, is 28.31mmHg. 18. There is no pulmonic regurgitation present. 19. The aortic root size is normal. 20. IVC Not well visulized. 21. There is no pericardial effusion. COSTING ANALYST: Hilary Anderson RDCS
[2019-03-14] MEDS ORDERED: TAMSULOSIN 0.4 MG CAP.ER.24H PO SCH (08:30)
--- NOTE | 2019-03-14 08:59 | P.PN ---
Subjective This is a pleasant 83-year-old male past medical history significant for coronary artery disease status post stent placement to the in 2017, recent endograft stent placement to the abdominal aortic aneurysm, aorto-femoral bypass, diabetes mellitus, hypertension, dyslipidemia and sleep apnea. He follows in the opposite Dr. Carter. He is seen and examined laying flat in bed in no acute distress. He denies any further symptoms of chest pain. Echocardiogram obtained reveals preserved LV systolic function with ejection fraction 55-60%. Blood pressure 167/88 heart rate 63 afebrile maintaining oxygen saturation on room air. Laboratory data reviewed, cardiac enzymes negative 3. GENERAL: This is a 83-year-old male in no apparent distress at the time of my examination. HEENT: Head is atraumatic, normocephalic. Pupils are equal, round. Sclerae anicteric. Conjunctivae are clear. Mucous membranes of the mouth are moist. Neck is supple. There is no jugular venous distention. No carotid bruit is heard. LUNGS: Clear to auscultation no wheezes, rales or rhonchi. Reproducible chest discomfort over the left precordial region. HEART: Regular rate and rhythm with systolic ejection murmur at the left sternal border, no rubs or gallops. S1 and S2 heard. EXTREMITIES: No evidence of peripheral edema and no calf tenderness noted. ASSESSMENT Chest pain, pleuritic. Atypical for angina. No EKG evidence of ischemia. Rece nt stress test in the office with no evidence for reversible ischemia. Possible musculoskeletal strain secondary to fall Fatigue History of coronary artery disease status post stent placement to the 2016 Recent repair of abdominal aortic aneurysm Peripheral vascular disease status post aortofemoral bypass Hypertension Dyslipidemia Diabetes mellitus PLAN An acute coronary event has been ruled out. Increase losartan to 100 mg daily. Overall stable from a cardiac perspective for discharge home. Follow up with Dr. Carter upon discharge. Nurse Practitioner note has been reviewed, I agree with a documented findings and plan of care. Patient was seen and examined. Objective - Vital Signs Vital signs: Vital Signs Temp 97.6 F 03/14/19 07:48 Pulse 63 03/14/19 07:48 Resp 16 03/14/19 07:48 BP 167/88 03/14/19 07:48 Pulse Ox 95 03/14/19 07:48 Intake & Output 03/13/19 03/14/19 03/14/19 18:59 06:59 18:59 Intake Total 480 Balance 480 Weight 77.111 kg Intake: Oral 480 Other: Voiding Method Toilet # Voids 2 - Labs CBC & Chem 7: 03/13/19 08:44 03/13/19 08:44 Labs: Abnormal Lab Results - Last 24 Hours (Table) 03/13/19 03/13/19 03/13/19 Range/Units 08:44 08:44 08:44 Hgb 12.8 L (13.0-17.5) gm/dL MCHC 29.5 L (31.0-37.0) g/dL Creatinine 1.46 H (0.66-1.25) mg/dL Glucose 111 H (74-99) mg/dL POC Glucose (mg/dL) (75-99) mg/dL Creatine Kinase 50 L (55-170) U/L HDL Cholesterol 33 L (40-60) mg/dL 03/13/19 03/14/19 Range/Units 16:46 07:00 Hgb (13.0-17.5) gm/dL MCHC (31.0-37.0) g/dL Creatinine (0.66-1.25) mg/dL Glucose (74-99) mg/dL POC Glucose (mg/dL) 220 H 135 H (75-99) mg/dL Creatine Kinase (55-170) U/L HDL Cholesterol (40-60) mg/dL
[2019-03-14] MEDS ORDERED: LINAGLIPTIN 5 MG TABLET PO SCH (09:00)
[2019-03-14] MEDS ORDERED: PARoxetine 20 MG TAB PO SCH (09:00)
[2019-03-14] MEDS ORDERED: FINASTERIDE 5 MG TAB PO SCH (09:00)
[2019-03-14] MEDS ORDERED: ENOXAPARIN 40 MG/0.4 ML SYRINGE SQ SCH (09:00)
[2019-03-14] MEDS ORDERED: ESCITALOPRAM 10 MG TAB PO SCH (09:00)
[2019-03-14] MEDS ORDERED: ASPIRIN 325 MG TAB PO SCH (09:00)
[2019-03-14] MEDS ORDERED: ATORVASTATIN 40 MG TAB PO SCH (09:00)
[2019-03-14] MEDS ORDERED: CYANOCOBALAMIN 500 MCG TAB PO SCH (09:00)
[2019-03-14] MEDS ORDERED: LOSARTAN 50 MG TAB PO SCH ×2 (09:00)
[2019-03-14] MEDS: METOPROLOL TARTRATE 25 MG TAB PO SCH (09:04)
[2019-03-14] MEDS: glipiZIDE 5 MG TAB PO SCH (09:12)
[2019-03-14 11:47] VITALS: PULSE 55
[2019-03-14 11:49] VITALS: BP 104/67
--- NOTE | 2019-03-15 10:38 | DS ---
DISCHARGE SUMMARY DATE OF ADMISSION: 03/13/2019 DATE OF DISCHARGE: 03/14/2019 FINAL DIAGNOSES: 1. Chest pain probably from pneumonitis/acute bronchitis, probably viral. 2. Diabetes mellitus type 2 on oral hypoglycemic. 3. Essential hypertension. 4. Hyperlipidemia. 5. Obstructive sleep apnea does not use CPAP machine. 6. Coronary artery disease with prior history of myocardial infarction. 7. Peripheral artery disease. 8. Chronic kidney disease stage 3 from nephrosclerosis. 9. Colonic diverticulosis. 10.Anxiety, with some flare up. HOSPITAL COURSE: The patient, who has a rather anxious disposition, presented with multitude of symptoms including chest pain, felt to be a manifestation of bronchitis. For the anxiety, patient's Lexapro was discontinued and started on Paxil. The patient was seen by Cardiology and okayed to be discharged. The patient recently had a stress test in their office, negative for ischemia. The patient was doing much better this morning. Care was discussed with the patient. Questions were answered. On examination, temperature 97.6, pulse 65, respirations 16, blood pressure 134/83. Did have a 2-D echocardiogram that showed EF 55-60 percent. DISCHARGE MEDICATIONS: 1. Glucotrol 5 mg b.i.d. 2. Vitamin B12 5000 mcg p.o. daily. 3. Aspirin 81 mg p.o. daily. 4. Lopressor 25 mg b.i.d. 5. Januvia 50 mg p.o. daily. 6. Lipitor 40 mg p.o. daily. 7. Vitamin D3 5000 units p.o. daily. 8. Xanax 0.25 p.o. q.8h p.r.n. 9. Proscar 5 mg p.o. daily. 10.Flomax 0.4 mg before breakfast. 11.Cozaar 100 mg p.o. daily. 12.Paxil 20 mg p.o. daily. FOLLOW UP: Dr. Carter on 04/04/2019. Follow up with Dr. Contreras in [address] Contreras. MMDAMIÁNL / JOCELINEN: [id number] /
== END 2019-03-14 12:49 | disposition home or self-care (01) ==
LOC: EC 08:26 → 1SOBS 11:18
PROVIDERS: ADMIT Hospitalist; ATTEND Hospitalist
DX: R07.89 Other chest pain (principal); R42 Dizziness and giddiness; I25.10 Atherosclerotic heart disease of native coronary artery without angina pectoris; I25.2 Old myocardial infarction; E11.51 Type 2 diabetes mellitus with diabetic peripheral angiopathy without gangrene; G47.33 Obstructive sleep apnea (adult) (pediatric); E78.5 Hyperlipidemia, unspecified; F41.9 Anxiety disorder, unspecified; I34.0 Nonrheumatic mitral (valve) insufficiency; R53.83 Other fatigue; M54.5 Low back pain; G89.29 Other chronic pain; K57.30 Diverticulosis of large intestine without perforation or abscess without bleeding; I12.9 Hypertensive chronic kidney disease with stage 1 through stage 4 chronic kidney disease, or unspecified chronic kidney disease; E11.22 Type 2 diabetes mellitus with diabetic chronic kidney disease; N18.3 Chronic kidney disease, stage 3 (moderate); Z98.890 Other specified postprocedural states; N40.0 Benign prostatic hyperplasia without lower urinary tract symptoms; Z79.82 Long term (current) use of aspirin; Z79.84 Long term (current) use of oral hypoglycemic drugs; Z79.899 Other long term (current) drug therapy; Z98.42 Cataract extraction status, left eye; Z98.41 Cataract extraction status, right eye; Z96.1 Presence of intraocular lens; Z95.5 Presence of coronary angioplasty implant and graft; Z87.891 Personal history of nicotine dependence; Z86.79 Personal history of other diseases of the circulatory system; Z86.73 Personal history of transient ischemic attack (TIA), and cerebral infarction without residual deficits; Z85.828 Personal history of other malignant neoplasm of skin; Y93.01 Activity, walking, marching and hiking; Y92.009 Unspecified place in unspecified non-institutional (private) residence as the place of occurrence of the external cause; W01.0XXA Fall on same level from slipping, tripping and stumbling without subsequent striking against object, initial encounter; Z83.3 Family history of diabetes mellitus; Z82.49 Family history of ischemic heart disease and other diseases of the circulatory system; Z81.1 Family history of alcohol abuse and dependence
CPT/HCPCS: 96372; 99285; 36415; 93005; 80061; 80053; 82550; 82553; 83735; 84484; 85025; 85610; 85730; 71046; G0378 ×2; C8929; S0138; J1650; Q9950; 93306

== ENCOUNTER 2019-07-04 16:16 | Emergency (ER) | payer MEDICARE, BC ==
[2019-07-04 16:53] VITALS: RESP 18
--- NOTE | 2019-07-04 18:07 | ED ---
Fall HPI - General Chief Complaint: Fall Stated Complaint: Fall Time Seen by Provider: 07/04/19 17:09 Source: patient Mode of arrival: ambulatory - History of Present Illness Initial Comments: Patient is a 83-year-old male presenting to the emergency Department after falling at his doctor's office. Patient states it was pouring down the rain and he his footing slipped and he fell down with his . Patient is only complaining of abrasions on his left forearm as well as his left knee. Patient denies hitting his head, LOC, neck pain, belly pain. Patient states he does lyles ve chronic back pain but he states the pain is not worse than normal. Patient has no other complaints at this time. Upon arrival to ER, vital signs are stable. - Related Data Home Medications Medication Instructions Recorded Confirmed glipiZIDE [Glucotrol] 5 mg PO BID 10/30/14 03/13/19 Cyanocobalamin (Vitamin B-12) 5,000 mcg PO DAILY 04/17/17 03/13/19 [Vitamin B-12] sitaGLIPtin [Januvia] 50 mg PO DAILY 07/18/17 03/13/19 Atorvastatin [Lipitor] 40 mg PO DAILY 11/04/18 03/13/19 Cholecalciferol [Vitamin D3 (25 5,000 unit PO DAILY 11/04/18 03/13/19 Mcg = 1000 Iu)] ALPRAZolam [Xanax] 0.25 mg PO Q8HR PRN 12/01/18 03/13/19 Finasteride [Proscar] 5 mg PO DAILY 12/01/18 03/13/19 Previous Rx's Medication Instructions Recorded Aspirin 81 mg PO DAILY 04/20/17 Metoprolol Tartrate [Lopressor] 25 mg PO BID #60 tab 04/20/17 Tamsulosin [Flomax] 0.4 mg PO PC-BRKFST #30 cap.er.24h 12/12/18 Losartan Potassium [Cozaar] 100 mg PO DAILY #30 tab 03/14/19 PARoxetine [Paxil] 20 mg PO DAILY #20 tab 03/14/19 Allergies Allergy/AdvReac Type Severity Reaction Status Date / Time No Known Allergies Allergy Verified 07/04/19 16:53 Review of Systems ROS Statement: Those systems with pertinent positive or pertinent negative responses have been documented in the HPI. ROS Other: All systems not noted in ROS Statement are negative. Past Medical History Past Medical History: Coronary Artery Disease (CAD), Cancer, CVA/TIA, Diabetes Mellitus, Hyperlipidemia, Hypertension, Myocardial Infarction (MD), Prostate Disorder, Sleep Apnea/CPAP/BIPAP, Vascular Disorder Additional Past Medical History / Comment(s): NIDDM type II, TIA in 2015, MICHAEL without device, CKD stage III, chronic low back pain, migraines in past, vertigo, balance issues, fall, BPH, benign colon polyp, diverticular disease, vascular disease with surgery-AAA repair and R leg bypass, skin cancer with removal. Last Myocardial Infarction Date:: 04/17/17 History of Any Multi-Drug Resistant Organisms: None Reported Past Surgical History: Adenoidectomy, Heart Catheterization With Stent, Tonsillectomy Additional Past Surgical History / Comment(s): 12/07/18 endovascular repair/stent graft infra renal aorta, R leg bypass surgery after AAA repair at [facility], colonoscopy/polypectomy, basal cell cancer removed from forehead, bilateral cataract removals/lens implants Past Anesthesia/Blood Transfusion Reactions: Motion Sickness Additional Past Anesthesia/Blood Transfusion Reaction / Comment(s): . Date of Last Stent Placement:: 03/2017 Past Psychological History: Anxiety, Depression Smoking Status: Former smoker Past Alcohol Use History: Rare Past Drug Use History: None Reported - Past Family History Brother(s) Family Medical History: No Reported History Sister(s) Family Medical History: No Reported History Son(s) Family Medical History: No Reported History Father Family Medical History: Diabetes Mellitus, Myocardial Infarction (MD), Vascular Disorder Additional Family Medical History / Comment(s): Father of a MD at the age of 76 or 77yrs. He was an alcoholic. Mother Family Medical History: Deep Vein Thrombosis (DVT), Pulmonary Embolus Additional Family Medical History / Comment(s): Mother at 42 yrs of age of "blood clot" in the lung and it went to the heart. General Exam - General Exam Comments Initial Comments: GENERAL: Well-appearing, well-nourished and in no acute distress. HEAD: Atraumatic, normocephalic. EYES: Pupils equal round and reactive to light, extraocular movements intact, sclera anicteric, conjunctiva are normal. ENT: TMs normal, nares patent, oropharynx clear without exudates. Moist mucous membranes. NECK: Normal range of motion, supple without lymphadenopathy or JVD. LUNGS: Breath sounds clear to auscultation bilaterally and equal. No wheezes rales or rhonchi. HEART: Regular rate and rhythm without murmurs, rubs or gallops. ABDOMEN: Soft, nontender, normoactive bowel sounds. No guarding, no rebound. No masses appreciated. : Deferred EXTREMITIES: Normal range of motion, no pitting or edema. No clubbing or cyanosis. NEUROLOGICAL: Cranial nerves II through XII grossly intact. Normal speech, normal gait. PSYCH: Normal mood, normal affect. SKIN: Warm, Dry, normal turgor. Patient has abrasion down the ulnar aspect of the left forearm. It is superficial in nature. Bleeding is controlled at this time. Patient has also has a small abrasion on the left knee. No bleeding. Limitations: no limitations Course Vital Signs 07/04/19 07/04/19 16:50 18:20 Temperature 97.5 F L 97.4 F L Pulse Rate 54 L 60 Respiratory 18 18 Rate Blood Pressure 170/76 162/89 O2 Sat by Pulse 97 98 Oximetry Medical Decision Making - Medical Decision Making Patient is a 83-year-old male presenting after falling at his doctor's office. It was pouring rain and patient slipped on the pavement falling with his . Patient denies LOC or hitting his head. Patient is only complaining of an abrasion on his left forearm. Patient has no other specific pains. Patient also has an abrasion on his left knee. The wounds were cleaned and bandage. Patient is stable for discharge at this time. Return parameters were discussed with the patient and he verbalized understanding. Case discussed with Dr. Onofre. Disposition Clinical Impression: Fall, Abrasion of left forearm, Abrasion, left knee, initial encounter Disposition: HOME SELF-CARE Condition: Stable Instructions (If sedation given, give patient instructions): Fall Prevention for Older Adults (ED) Additional Instructions: Please return to the Emergency Department if symptoms worsen or any other concerns. Continue to use antibiotic ointment once or twice a day on abrasions. Follow-up with PCP as needed. Is patient prescribed a controlled substance at d/c from ED?: No Referrals: Chinedu Contreras MD [Primary Care Provider] - 1-2 days
[2019-07-04 18:21] VITALS: BP 162/89; PULSE 60; TEMP 97.4
== END 2019-07-04 18:20 | disposition home or self-care (01) ==
LOC: EC 16:16
DX: S50.812A Abrasion of left forearm, initial encounter (principal); S80.212A Abrasion, left knee, initial encounter; G89.29 Other chronic pain; M54.5 Low back pain; F41.9 Anxiety disorder, unspecified; F32.9 Major depressive disorder, single episode, unspecified; E78.5 Hyperlipidemia, unspecified; N40.0 Benign prostatic hyperplasia without lower urinary tract symptoms; I12.9 Hypertensive chronic kidney disease with stage 1 through stage 4 chronic kidney disease, or unspecified chronic kidney disease; E11.22 Type 2 diabetes mellitus with diabetic chronic kidney disease; N18.3 Chronic kidney disease, stage 3 (moderate); I25.10 Atherosclerotic heart disease of native coronary artery without angina pectoris; I25.2 Old myocardial infarction; Z79.84 Long term (current) use of oral hypoglycemic drugs; Z79.899 Other long term (current) drug therapy; Z85.828 Personal history of other malignant neoplasm of skin; Z86.73 Personal history of transient ischemic attack (TIA), and cerebral infarction without residual deficits; Z87.891 Personal history of nicotine dependence; Z95.5 Presence of coronary angioplasty implant and graft; Z98.41 Cataract extraction status, right eye; Z98.42 Cataract extraction status, left eye; Z96.1 Presence of intraocular lens; Z98.890 Other specified postprocedural states; W01.0XXA Fall on same level from slipping, tripping and stumbling without subsequent striking against object, initial encounter; Y92.531 Health care provider office as the place of occurrence of the external cause
CPT/HCPCS: 99283

== ENCOUNTER → 2019-12-30 | Outpatient (CLI) | payer MEDICARE, BC | END | disposition home or self-care (01) | LOC: LAB 12:04 | PROVIDERS: ATTEND Psychiatry & Neurology Neurology | DX: Z51.81 Encounter for therapeutic drug level monitoring (principal) | CPT/HCPCS: 82565; 84520 ==

== ENCOUNTER → 2020-10-15 | Outpatient (CLI) | payer MEDICARE, BC ==
--- NOTE | 2020-10-15 13:50 | CT ---
EXAMINATION TYPE: CT abdomen pelvis wo con DATE OF EXAM: 10/15/2020 COMPARISON: CT 10/13/2018, 11/04/2018 from outside institution HISTORY: Hematuria CT DLP: 580.0 mGycm Automated exposure control for dose reduction was used. TECHNIQUE: Helical acquisition of images from the lung bases through the pelvis. FINDINGS: There are dense coronary artery calcifications present. There is a small hiatal hernia. . L ack of intravenous contrast could compromise sensitivity of the exam. LUNG BASES: Some probable scarring present at the lung bases. AORTA: Patient shows aorta bifemoral bypass graft changes in place. Femoral femoral bypass graft is noted. LIVER/GB: No significant abnormality is appreciated. PANCREAS: Calcifications associated with the head of the pancreas may be due to chronic pancreatitis. SPLEEN: No significant abnormality is seen. ADRENALS: No significant abnormality is seen. KIDNEYS: Left kidney somewhat atrophic, there is no evident hydronephrosis or ureteral calcification, no evident renal mass on this noncontrast exam, focal defect, cortical thinning at the posterior rig ht kidney upper pole likely reflects underlying scarring. REPRODUCTIVE ORGANS: The prostate is enlarged. There are associated calcifications. URINARY BLADDER: Urinary bladder shows some deviation toward the left, there is mass effect at the l evel of the dome. Some local inflammatory changes present at the fat around the urinary bladder on th e right superior margin. Bladder wall thickening is present. BOWEL: There is loss of the fat plane between the superior margin of the urinary bladder and the ove rlying colon. Sigmoid colon shows a thickened wall and abnormal ectatic appearance at this level, at the level of the junction between the sigmoid and descending colon is abnormal thickening the colonic wall with some internal mural calcification and air density. There is extensive diverticulosis. FREE AIR: No Free Air is visible. ASCITES: None visible. PELVIC ADENOPATHY: None visualized. RETROPERITONEAL ADENOPATHY: No Retroperitoneal Adenopathy visible. OSSEOUS STRUCTURES: No significant abnormality is seen. IMPRESSION: FINDINGS MAY REPRESENT SEQUELA OF CHRONIC DIVERTICULITIS WITH INFLAMMATORY CHANGES INVOLVING THE DOME OF THE BLADDER, NO EVIDENT FISTULA ON THIS NONCONTRAST EXAM, CORRELATE FOR URINARY TRACT INFECTION, SIGMOID COLON SHOWS AN ABNORMAL APPEARANCE, DIFFICULT TO EXCLUDE AN UNDERLYING MUCOSAL LESION, CONSID ER GENERAL SURGERY CONSULT, findings are as compared to prior CT 10/13/2018, 11/04/2018
== END | disposition home or self-care (01) ==
LOC: RADCTMAIN 11:25
PROVIDERS: ATTEND Urology
DX: R31.9 Hematuria, unspecified (principal)
CPT/HCPCS: 36415; 74176; 82565; 84520

== ENCOUNTER → 2021-01-21 | Outpatient (CLI) | payer MEDICARE, BC ==
[2021-01-21 09:10] VITALS: BP 124/68; PULSE 67; RESP 16; TEMP 97.5
--- NOTE | 2021-01-21 09:31 | P.PAINCN ---
History of Present Illness - Reason for Consult Consult date: 01/21/21 back pain - Chief Complaint back pain - History of Present Illness Mr. Butler is an 85-year-old gentleman who presents today as a new patient consult for low back pain. He reports back pain in the low back with occasional lower extremity pain. He also has significant peripheral vascular disease which he is unsure was causing his leg pain. He reports the leg pain did improve after revascularization. He complains of mostly back pain across the waistline without radiation to legs. The pain stays in the low back which is worse with bending, standing or walking for any extensive time. He finds that walking for greater than 2030 yards causes significant pain in the low back. He denies any bowel or bladder incontinence. He denies any history of back surgery. He had a history of multiple vascular surgeries. He does not like to use pain medications. He has seen Dr. Ferreira's and who is recommended he come here for potential spinal injections. He is not on any blood thinning medications besides aspirin 81 mg. Review of Systems: Denies any New chest pain, short of breath, Nausea/vomitting, abdominal pain, bowel or bladder incontinence, or any overt new neurologic symptoms in his upper or lower extremities. Review of Systems Except HPI Past Medical History Past Medical History: Coronary Artery Disease (CAD), Cancer, CVA/TIA, Diabetes Mellitus, Hyperlipidemia, Hypertension, Myocardial Infarction (OK), Prostate Disorder, Sleep Apnea/CPAP/BIPAP, Vascular Disorder Additional Past Medical History / Comment(s): TIA in 2014, MICHAEL without device, CKD stage III, chronic low back pain, migraines in past, vertigo, balance issues, fall, BPH, benign colon polyp, diverticular disease, vascular disease with surgery-AAA repair and R leg bypass, skin cancer with removal. Last Myocardial Infarction Date:: 04/17/17 History of Any Multi-Drug Resistant Organisms: None Reported Past Surgical History: Adenoidectomy, Heart Catheterization With Stent, Tonsillectomy Additional Past Surgical History / Comment(s): 12/07/18 endovascular repair/stent graft infra renal aorta, R leg bypass surgery after AAA repair at [facility], colonoscopy/polypectomy, basal cell cancer removed from forehead, bilateral cataract removals/lens implants Past Anesthesia/Blood Transfusion Reactions: Motion Sickness Additional Past Anesthesia/Blood Transfusion Reaction / Comm: . Date of Last Stent Placement:: 03/2017 Past Psychological History: Anxiety, Depression Additional Psychological History / Comment(s): . Smoking Status: Former smoker Past Alcohol Use History: None Reported Additional Past Alcohol Use History / Comment(s): Pt started smoking in 1957 and quit in 1986. Past Drug Use History: None Reported - Past Family History Brother(s) Family Medical History: No Reported History Sister(s) Family Medical History: No Reported History Son(s) Family Medical History: No Reported History Father Family Medical History: Diabetes Mellitus, Myocardial Infarction (OK), Vascular Disorder Additional Family Medical History / Comment(s): Father of a OK at the age of 76 or 77yrs. He was an alcoholic. Mother Family Medical History: Deep Vein Thrombosis (DVT), Pulmonary Embolus Additional Family Medical History / Comment(s): Mother at 42 yrs of age of "blood clot" in the lung and it went to the heart. Medications and Allergies Home Medications Medication Instructions Recorded Confirmed Type glipiZIDE [Glucotrol] 5 mg PO BID 10/30/14 01/21/21 History Cyanocobalamin (Vitamin B-12) 5,000 mcg PO DAILY 04/17/17 01/21/21 History [Vitamin B-12] Aspirin 81 mg PO DAILY 04/20/17 01/21/21 Rx Metoprolol Tartrate [Lopressor] 25 mg PO BID #60 tab 04/20/17 01/21/21 Rx Atorvastatin [Lipitor] 40 mg PO DAILY 11/04/18 01/21/21 History Cholecalciferol [Vitamin D3 (25 5,000 unit PO DAILY 11/04/18 01/21/21 History Mcg = 1000 Iu)] Finasteride [Proscar] 5 mg PO DAILY 12/01/18 01/21/21 History PARoxetine HCL [Paxil] 40 mg PO HS 01/16/21 01/21/21 History sitaGLIPtin PHOSPHATE [Januvia] 100 mg PO DAILY 01/16/21 01/21/21 History Allergies Allergy/AdvReac Type Severity Reaction Status Date / Time No Known Allergies Allergy Verified 01/16/21 11:42 Physical Exam Vitals: Vital Signs Temp Pulse Resp BP Pulse Ox 01/21/21 09:05 97.5 F L 67 16 124/68 97 General: Awake and alert oriented 3 no distress Respiratory exam: No audible wheezing no accessory muscle usage Cardiovascular exam: regular rate, palpable bilateral pulses, no lower extremity edema Cervical spine: Normal alignment, Spurling's negative, facet loading negative, Director [employer] strength is 5/5, sanz negative Lumbar spine: Loss of lumbar lordosis, normal alignment, non tender to palpation over bilateral paraspinal muscles, facet loading is positive bilaterally. Straight leg raise is negative. Limited range of motion due to pain with flexion, extension and side bending. Lower extremity strength is 4-5 bilaterally at the quadriceps and hamstrings as well as anterior tibialis. Sacroiliac joints: Nontender to palpation, ARTHUR is negative, Gaenselon negative Neuro exam: Normal sensation in bilateral upper extremities, deep tendon reflexes are 2+ bilateral upper extremities. Normal sensation in bilateral lower extremities. 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 We discussed with the patient that his pain in the low back is likely coming from facet joints bilaterally. We discussed diagnostic testing as well as potential radiofrequency ablation of the lumbar spine. He is very interested in moving forward. He feels that his pain is usually worse in the afternoon. He like to schedule appointment for later in the afternoon. We discussed the diagnostic Nature of the procedure in detail and the potential radiofrequency ablation for long-term relief. No medications were dispensed today. I have spent 41 minutes on patient care today. The time was used to review the medical records including relevant urine studies and Prescription history (MAPs), review of the available imaging, evaluation and examination of the patient, coordination of care with the medical staff and if applicable referring physicians, as well as creation of the medical record. Time with Patient: Greater than 30 PQRS Measure Charge Sheet Measure #130: Documentation of Current Meds in Medical Chart: Patient's medications documented in chart Measure #226: Tobacco Use: Screen & Cessation Intervention: Pt not a tobacco user Measure #317: Preventitive Care & Scrn High Bld Press & F/U: Normal blood pressure, f/u not required Measure #128: Body Mass Index (BMI) Screening & Follow-up: BMI documented within normal parameters Measure #131: Pain Assessment & Follow-up: Pain positive & plan documented, Follow-up scheduled Measure #431: Unhealthy Alcohol Use Preventative Care & Scrn: Patient not identified as an unhealthy alcohol user PQRS Narrative: Smoking Status Former smoker Blood Pressure 124/68 Pain Intensity [Back] 3 Scale Used Numeric (1 - 10) Hx Alcohol Use (MH) No Home Medications: Ambulatory Orders glipiZIDE [Glucotrol] 5 mg PO BID 10/30/14 Cyanocobalamin (Vitamin B-12) [Vitamin B-12] 5,000 mcg PO DAILY 04/17/17 Aspirin 81 mg PO DAILY 04/20/17 Metoprolol Tartrate [Lopressor] 25 mg PO BID #60 tab 04/20/17 Atorvastatin [Lipitor] 40 mg PO DAILY 11/04/18 Cholecalciferol [Vitamin D3 (25 Mcg = 1000 Iu)] 5,000 unit PO DAILY 11/04/18 Finasteride [Proscar] 5 mg PO DAILY 12/01/18 PARoxetine HCL [Paxil] 40 mg PO HS 01/16/21 sitaGLIPtin PHOSPHATE [Januvia] 100 mg PO DAILY 01/16/21
== END ==
LOC: PNWHC3 08:49
PROVIDERS: ATTEND Hospitalist
DX: M47.816 Spondylosis without myelopathy or radiculopathy, lumbar region (principal); M51.36 Other intervertebral disc degeneration, lumbar region; Z87.891 Personal history of nicotine dependence; F32.9 Major depressive disorder, single episode, unspecified; Z79.82 Long term (current) use of aspirin; Z86.73 Personal history of transient ischemic attack (TIA), and cerebral infarction without residual deficits; I73.9 Peripheral vascular disease, unspecified; I25.10 Atherosclerotic heart disease of native coronary artery without angina pectoris; E11.22 Type 2 diabetes mellitus with diabetic chronic kidney disease; N18.30 Chronic kidney disease, stage 3 unspecified; Z79.84 Long term (current) use of oral hypoglycemic drugs; E78.5 Hyperlipidemia, unspecified; F41.9 Anxiety disorder, unspecified; I12.9 Hypertensive chronic kidney disease with stage 1 through stage 4 chronic kidney disease, or unspecified chronic kidney disease; I25.2 Old myocardial infarction; Z95.5 Presence of coronary angioplasty implant and graft
CPT/HCPCS: 99211

== ENCOUNTER 2021-02-20 11:11 | Day surgery (SDC) | payer MEDICARE, BC ==
[2021-02-20 11:42] VITALS: RESP 16; TEMP 97.8
[2021-02-20] MEDS ORDERED: LIDOCAINE 1% (10MG/ML) FOR IV START INTRADERMA ONE (12:00)
[2021-02-20 12:08] LABS: Glucose,Whole Blood 110 mg/dL (75-99)
[2021-02-20] MEDS ORDERED: LACTATED RINGERS 1,000 ML IV SCH (12:09)
[2021-02-20] MEDS ORDERED: fentaNYL (PF) 50 MCG/ML 2 ML AMP ONE (12:24)
[2021-02-20] MEDS ORDERED: ROPIVACAINE 5MG/ML 20ML VIAL ONE (12:24)
[2021-02-20] MEDS ORDERED: methylPREDNISolone ACETATE 40 MG/ML 1 ML VIAL ONE (12:24)
[2021-02-20] MEDS ORDERED: MIDAZOLAM 2 MG/2 ML VIAL ONE (12:24)
--- NOTE | 2021-02-20 12:40 | P.PCN ---
Date of Procedure: 02/20/21 Procedure(s) Performed: PREOPERATIVE DIAGNOSIS : 1- Lumbar spondylosis with Facet Arthropathy without myelopathy . 2- Lumber degenerative disc disease POSTOPERATIVE DIAGNOSIS: 1- Lumbar spondylosis with Facet Arthropathy without myelopathy . 2- Lumber degenerative disc disease PROCEDURE: Diagnostic bilateral L3 , L4 , and L5 medial branch block under fluoroscopy guidance(fluoroscopy images available in the radiology Department ) ( To target the facet joint between L4-5 , and L5-S1 ) ANESTHESIA:, Monitored anesthesia care as per anesthesia department.. EBL: Minimal COMPLICATION: None PROCEDURE INDICATION: Chronic low back pain secondary to Facet arthropathy unresponsive to conservative treatment. PROCEDURE DESCRIPTION: the patient was seen and identified in the preop holding area , risks and benefits and possible complications of the procedure and alternative were discussed with the patient, and the patient agreed to proceed with the procedure and signed the consent and vital signs monitored during the procedure and fluoroscopy was used to maximize the benefit and accuracy of the needle placement, and sedation was given to decrease patient anxiety, patient was taken to the procedure room and placed in prone position vital signs monitored in the back prepped with chlorhexidine X3 then under strict sterile technique using a right oblique fluoroscopy ,the junction of the transverse process and the superior articulating process of the right L3 , L4 , and L5 vertebra which corresponding to the fluoroscopy image of the eye of the Bj dog on the block side for the medial branches and subsequently , after local infiltration of skin and subcu tissuies with Ropivacaine 0.5 % , one mL at each level ,then 22-gauge Quincke-type needles , 3 needle was used , each one of them placed at the junction of the base of the transverse process and the superior articular process at the appropriate level, and the needle was advanced until the periosteum contacted, needle placement confirmed with AP oblique and lateral view and after appropriate needle placement confirmed, and after negative aspiration for heme and CSF and there was no paresthesia 1-1/2 mL of Ropivacaine 0.5% mixed with 20 mg Depo-Medrol , then half mL injected at each level after negative aspiration the needle subsequently removed and the same procedure repeated for the left side at left side at L3 , L4 and L5 levels. At the end of the procedure and the needles removed and a bandage applied after the skin was cleaned the cleaning solution patient taken to recovery room in stable condition and monitors in the recovery room for 20-30 minutes and discharged home in stable condition after discharge criteria met and patient will follow up with the pain clinic in 2-4 weeks
[2021-02-20 13:01] VITALS: BP 121/63; PULSE 47
[2021-02-20] MEDS ORDERED: IV FLUID CONTINUATION 1,000 ML IV ONE (13:03)
--- NOTE | 2021-02-20 13:23 | FL ---
Fluoroscopy History: BILAT LUMBAR FACET BLOCK 9 sec fl
== END 2021-02-20 13:32 | disposition home or self-care (01) ==
LOC: ORPAIN 11:11
PROVIDERS: ATTEND Anesthesiology
DX: M47.816 Spondylosis without myelopathy or radiculopathy, lumbar region (principal); M51.36 Other intervertebral disc degeneration, lumbar region; I25.2 Old myocardial infarction; I25.10 Atherosclerotic heart disease of native coronary artery without angina pectoris; I10 Essential (primary) hypertension; E78.5 Hyperlipidemia, unspecified; E11.9 Type 2 diabetes mellitus without complications; G47.33 Obstructive sleep apnea (adult) (pediatric); Z79.84 Long term (current) use of oral hypoglycemic drugs; Z79.899 Other long term (current) drug therapy; Z86.73 Personal history of transient ischemic attack (TIA), and cerebral infarction without residual deficits; Z86.79 Personal history of other diseases of the circulatory system; Z99.89 Dependence on other enabling machines and devices
CPT/HCPCS: 64493; 64494; J2250; J1030; J3010; J2795

== ENCOUNTER 2021-03-20 11:58 | Day surgery (SDC) | payer MEDICARE, BC ==
[2021-03-18 15:47] VITALS: BMI 25.1
[~2021-03-20 11:58] MED LIST changes: +LACTATED RINGERS 1,000 ML IV SCH; -LIDOCAINE 1% 20 ML VIAL (10MG/ML) FOR IV START INTRADERMA PRN; -MIDAZOLAM (PF) 2 MG/2 ML VIAL IV PRN; -ONDANSETRON 4 MG/2 ML VIAL IVP ONE; -fentaNYL (PF) 50 MCG/ML 2 ML AMP IV PRN
[2021-03-20 12:35] VITALS: RESP 16; TEMP 97.8
[2021-03-20 13:01] LABS: Glucose,Whole Blood 125 mg/dL (75-99)
--- NOTE | 2021-03-20 13:29 | P.PCN ---
Date of Procedure: 03/20/21 Procedure(s) Performed: PREOPERATIVE DIAGNOSIS : 1- Lumbar spondylosis with Facet Arthropathy without myelopathy . 2- Lumber degenerative disc disease POSTOPERATIVE DIAGNOSIS: 1- Lumbar spondylosis with Facet Arthropathy without myelopathy . 2- Lumber degenerative disc disease PROCEDURE: Diagnostic bilateral L3 , L4 , and L5 medial branch block under fluoroscopy guidance(fluoroscopy images available in the radiology Department ) ( To target the facet joint between L4-5 , and L5-S1 ) #2nd ANESTHESIA:, Monitored anesthesia care as per anesthesia department.. EBL: Minimal COMPLICATION: None PROCEDURE INDICATION: Chronic low back pain secondary to Facet arthropathy unresponsive to conservative treatment. PROCEDURE DESCRIPTION: the patient was seen and identified in the preop holding area , risks and benefits and possible complications of the procedure and alternative were discussed with the patient, and the patient agreed to proceed with the procedure and signed the consent and vital signs monitored du ring the procedure and fluoroscopy was used to maximize the benefit and accuracy of the needle placement, and sedation was given to decrease patient anxiety, patient was taken to the procedure room and placed in prone position vital signs monitored in the back prepped with chlorhexidine X3 then under strict sterile technique using a right oblique fluoroscopy ,the junction of the transverse process and the superior articulating process of the right L3 , L4 , and L5 vertebra which corresponding to the fluoroscopy image of the eye of the Bj dog on the block side for the medial branches and subsequently , after local infiltration of skin and subcu tissuies with Ropivacaine 0.5 % , one mL at each level ,then 22-gauge Quincke-type needles , 3 needle was used , each one of them placed at the junction of the base of the transverse process and the superior articular process at the appropriate level, and the needle was advanced until the periosteum contacted, needle placement confirmed with AP oblique and lateral view and after appropriate needle placement confirmed, and after negative aspiration for heme and CSF and there was no paresthesia 1-1/2 mL of Ropivacaine 0.5% mixed with 20 mg Depo-Medrol , then half mL injected at each level after negative aspiration the needle subsequently removed and the same procedure repeated for the left side at left side at L3 , L4 and L5 levels. At the end of the procedure and the needles removed and a bandage applied after the skin was cleaned the cleaning solution patient taken to recovery room in stable condition and monitors in the recovery room for 20-30 minutes and discharged home in stable condition after discharge criteria met and patient will follow up with the pain clinic in 2-4 weeks
[2021-03-20] MEDS ORDERED: IV FLUID CONTINUATION 1,000 ML IV ONE (13:33)
--- NOTE | 2021-03-20 13:48 | FL ---
EXAMINATION TYPE: FL guided pain mgmt statistic DATE OF EXAM: 03/20/2021 CLINICAL HISTORY: Low back pain. TECHNIQUE: Fluoroscopy. COMPARISON: None. FINDINGS: Fluoroscopic guidance was provided during pain relief procedure performed by Dr. Newell . A total of 15 seconds of fluoroscopic time was utilized during the procedure and 4 spot images are acquired. Images acquired shows needle localization at several levels in the lumbar spine. IMPRESSION: As Above.
[2021-03-20 13:49] VITALS: BP 148/93; PULSE 60
== END 2021-03-20 14:05 | disposition home or self-care (01) ==
LOC: ORPAIN 11:58
PROVIDERS: ATTEND Specialist
DX: G89.29 Other chronic pain (principal); M47.816 Spondylosis without myelopathy or radiculopathy, lumbar region; M51.36 Other intervertebral disc degeneration, lumbar region; I25.10 Atherosclerotic heart disease of native coronary artery without angina pectoris; I10 Essential (primary) hypertension; E78.5 Hyperlipidemia, unspecified; E11.9 Type 2 diabetes mellitus without complications; G47.33 Obstructive sleep apnea (adult) (pediatric); G43.909 Migraine, unspecified, not intractable, without status migrainosus; Z86.73 Personal history of transient ischemic attack (TIA), and cerebral infarction without residual deficits; Z79.84 Long term (current) use of oral hypoglycemic drugs; Z79.82 Long term (current) use of aspirin; Z79.899 Other long term (current) drug therapy

== ENCOUNTER → 2021-04-15 | Outpatient (CLI) | payer MEDICARE, BC ==
[2021-04-15 13:33] VITALS: BP 112/72; PULSE 61; RESP 18; TEMP 97.4
--- NOTE | 2021-04-15 13:57 | P.PAINPG ---
Subjective Progress Note Date: 04/15/21 Mr. Butler is an 85-year-old gentleman who presents today Is a follow-up. We saw him as a new consult in the past and he was complaining of low back pain with occasional lower extremity pain. Also has significant peripheral vascular disease which did improve after revascularization. Pain is mostly across the low back without radiation into the legs and is worse with bending standing or walking for any period of time. Denies any bowel or bladder incontinence. Has history of multiple vascular surgeries. Does not like pain medications. Saw Dr. Marie who recommended medial branch blocks and we just did bilateral L4-5 L5-S1 medial branch blocks for him. Due to 100% relief from the first set of medial branch blocks however he received 0% relief in the next set. Pain is located in the low back with radiation to the bilateral lower extremities in the posterior aspect with radiation to the feet. He also endorses some weakness while walking. Patient is quite frustrated with this whole process and he was very upset when a second set of injections did not help him. He is eager to find some form of injection therapy that would be helpful for him as he does not want surgery. Also had questions about pain medications. Review of Systems: Denies any New chest pain, short of breath, Nausea/vomitting, abdominal pain, bowel or bladder incontinence, or any overt new neurologic symptoms in his upper or lower extremities. General: Awake and alert oriented 3 no distress Respiratory exam: No audible wheezing no accessory muscle usage Cardiovascular exam: regular rate, palpable bilateral pulses, no lower extremity edema Cervical spine: Normal alignment, Spurling's negative, facet loading negative, [employer] As[employer]er strength is 5/5, sanz negative Lumbar spine: Loss of lumbar lordosis, normal alignment, non tender to palpation over bilateral paraspinal muscles, facet loading is positive bilaterally. Straight leg raise is positive bilaterally. Limited range of motion due to pain with flexion, extension and side bending. Lower extremity strength is 4-5 bilaterally at the quadriceps and hamstrings as well as anterior tibialis. Sacroiliac joints: Nontender to palpation, ARTHUR is negative, Gaenselon negative Neuro exam: Normal sensation in bilateral upper extremities, deep tendon reflexes are 2+ bilateral upper extremities. Normal sensation in bilateral lower extremities. Deep tendon reflexes are 2+ in lower extremities. 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 If this does not help we can repeat MRI as I do not have one in the system. In terms of medication I educated the patient to take Tylenol 1000 mg 3 times a day. He should not take too much Motrin if any at all given he has some kidney dysfunction and his primary care provider said the same thing. I have spent 33 minutes on patient care today. The time was used to review the medical records including relevant urine studies and Prescription history (MAPs), review of the available imaging, evaluation and examination of the patient, coordination of care with the medical staff and if applicable referring physicians, as well as creation of the medical record. PQRS Measure Charge Sheet Measure #130: Documentation of Current Meds in Medical Chart: Patient's medications documented in chart Measure #226: Tobacco Use: Screen & Cessation Intervention: Pt not a tobacco user Measure #317: Preventitive Care & Scrn High Bld Press & F/U: Normal blood pressure, f/u not required Measure #128: Body Mass Index (BMI) Screening & Follow-up: BMI documented within normal parameters Measure #131: Pain Assessment & Follow-up: Pain positive & plan documented, Follow-up scheduled Measure #431: Unhealthy Alcohol Use Preventative Care & Scrn: Patient not identified as an unhealthy alcohol user PQRS Narrative: PQRS Measure Charge Sheet PQRS Narrative: Smoking Status Former smoker Hx Alcohol Use (MH) No Home Medications: Ambulatory Orders glipiZIDE [Glucotrol] 5 mg PO BID 10/30/14 Cyanocobalamin (Vitamin B-12) [Vitamin B-12] 1,000 mcg PO DAILY 04/17/17 Aspirin 81 mg PO DAILY 04/20/17 Metoprolol Tartrate [Lopressor] 25 mg PO BID #60 tab 04/20/17 Atorvastatin [Lipitor] 40 mg PO DAILY 11/04/18 Cholecalciferol [Vitamin D3 (25 Mcg = 1000 Iu)] 5,000 unit PO DAILY 11/04/18 Finasteride [Proscar] 5 mg PO DAILY 12/01/18 PARoxetine HCL [Paxil] 40 mg PO HS 01/16/21 sitaGLIPtin PHOSPHATE [Januvia] 100 mg PO DAILY 01/16/21 Donepezil [Aricept] 5 mg PO HS 03/20/21 Ferrous Sulfate, Dried [Iron] 159 mg PO DAILY 03/20/21 Controlled Substance Measures - Controlled Substance Measures Is patient prescribed a controlled substance at discharge?: No
== END ==
LOC: PNWHC3 13:09
PROVIDERS: ATTEND Anesthesiology
DX: M47.816 Spondylosis without myelopathy or radiculopathy, lumbar region (principal); I73.9 Peripheral vascular disease, unspecified; M51.36 Other intervertebral disc degeneration, lumbar region; Z87.891 Personal history of nicotine dependence
CPT/HCPCS: 99211

== ENCOUNTER 2021-05-05 08:00 | Day surgery (SDC) | payer MEDICARE, BC ==
[2021-05-04 12:56] VITALS: BMI 26.6
[2021-05-05 09:11] VITALS: RESP 16
[2021-05-05] MEDS ORDERED: ROPIVACAINE 5MG/ML 20ML VIAL ONE (09:40)
[2021-05-05] MEDS ORDERED: IOPAMIDOL M200 10 ML VIAL ONE (09:40)
[2021-05-05] MEDS ORDERED: fentaNYL (PF) 50 MCG/ML 2 ML AMP ONE (09:40)
[2021-05-05] MEDS ORDERED: TRIAMCINOLONE ACETONIDE 40 MG/ML 1 ML VIAL ONE (09:40)
[2021-05-05] MEDS ORDERED: MIDAZOLAM 2 MG/2 ML VIAL ONE (09:40)
--- NOTE | 2021-05-05 10:04 | P.PCN ---
Date of Procedure: 05/05/21 Surgeon: Lalo Koch Pathology: none sent Condition: stable Disposition: PACU Description of Procedure: PREOPERATIVE DIAGNOSIS: 1-Lumbar radiculopathy 2- Lumber Degenerative Disc Diseases. POSTOPERATIVE DIAGNOSIS: 1-Lumbar radiculopathy. 2-Lumbar Degenerative Disc Diseases PROCEDURE 1. Lumbar epidural steroid injection under fluoroscopic guidance at the L3-4 level in the left paramedian approach. 2. Lumbar epidurogram. ANESTHESIA: Local with 1% lidocaine; and IV moderate conscious sedation with Versed and fentanyl EBL: Minimal PROCEDURE INDICATION: The patient with low back pain and radiculitis symptoms unresponsive to conservative treatment. Fluoroscopy was used to optimize visualization of the needle placement and to maximize safety. PROCEDURE DESCRIPTION / TECHNIQUE: The patient was seen and identified in the preoperative area. Risks, benefits, complications including but not limited to infections ,bleeding ,allergic reaction to the medications ,nerve damage and not complete pain relief , and alternatives were discussed with the patient. The patient agreed to proceed with the procedure and signed the consent. IV was started, and vital signs were stable. Patient was taken to the OR and time out was completed. The patient was placed in the prone position on procedure table and a pillow was placed under the abdomen to reduce lumbar lordosis. The lumbosacral area was prepped and draped in the usual sterile fashion with ChloraPrep.Patient was closely monitored during the procedure. Conscious sedation was used during the procedure to decrease patients anxiety. Vital signs were monitered during the entire procedure. Using anterior-posterior fluoroscopy, the L3-4 interlaminar space was identified and the skin over this site was marked and then infiltrated with 1% lidocaine subcutaneously. Subsequently, a 20-gauge Tuohy epidural needle was inserted and advanced toward the epidural space using the Loss of resistance to air technique and guided by AP and lateral fluoroscopy. The correct needle position in the epidural space was verified with the injection of 1 mL of the water soluble contrast dye Omnipaque 180 contrast and observing an excellent epidurogram with the epidural spread of the dye, after negative aspiration for blood and CSF and in the absence of paresthesias. Again after negative aspi ration, a 7 ml mixture containing 40 mg of Kenalog and 5 ml of preservative free Normal Saline, and 2 ml of preservative free ropivacaine 0.5% solution was injected and a washout of epidurogram was seen. Needle was withdrawn intact, skin was cleansed, and bandages were applied. patient tolerated procedure well and was transferred to PACU in stable condition.A copy of the needle placement picture was saved to the fluoroscopy machine. I had difficulty getting access to the epidural space at the L5-S1 level then I managed to get into the L3-4 level starting one level below at the L4-5 level and aiming towards the L3-4 epidural space in the left paramedian approach. COMPLICATIONS: None DISPOSITION / PLANS: The patient was placed in a supine position and transferred to the recovery area in a stable condition for observation. There was no evidence of lower extremity motor or sensory deficit after the procedure. Patient was discharged from the recovery room after meeting discharge criteria. Home discharge instructions were given to the patient by the staff. The patient was reexamined prior to discharge. The patient will schedule a follow up in the clinic in 2-4 weeks.
[2021-05-05 10:10] VITALS: PULSE 55
[2021-05-05] MEDS ORDERED: IV FLUID CONTINUATION 1,000 ML IV ONE (10:13)
[2021-05-05 10:23] VITALS: BP 123/75
--- NOTE | 2021-05-05 17:00 | FL ---
EXAMINATION TYPE: FL guided pain mgmt statistic DATE OF EXAM: 05/05/2021 CLINICAL HISTORY: Lumbar epidural injection TECHNIQUE: Fluoroscopy. COMPARISON: None. FINDINGS: Fluoroscopic guidance was provided during procedure performed by Dr. Koch. A total of 28 seconds of fluoroscopic time was utilized during the procedure and 1 spot images was acquired. IMPRESSION: As Above.
== END 2021-05-05 10:40 | disposition home or self-care (01) ==
LOC: ORPAIN 08:00
PROVIDERS: ATTEND Anesthesiology
DX: M51.16 Intervertebral disc disorders with radiculopathy, lumbar region (principal); E11.9 Type 2 diabetes mellitus without complications; Z79.82 Long term (current) use of aspirin
CPT/HCPCS: 62323; J2250; J3301; J3010; Q9966; J2795; 99152

== ENCOUNTER 2021-11-18 13:45 | Inpatient (IN) | payer BC, MEDICARE ==
[2021-11-18] MEDS ORDERED: SODIUM CHLORIDE 0.9% 500 ML 500 ML IV STA ×2 (14:27→16:09)
--- NOTE | 2021-11-18 14:31 | ED ---
General Adult HPI - General Chief complaint: Weakness Stated complaint: weakness, diarrahea Time Seen by Provider: 11/18/21 14:05 Source: patient, family, RN notes reviewed Mode of arrival: ambulatory Limitations: no limitations - History of Present Illness Initial comments: 86-year-old male with a complicated past medical history including hyperlipidem ia, hypertension, CAD, diabetes mellitus presents to the emergency room for a chief complaint of weakness. Patient's brother is with him. States he has been weak all week. 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 States patient has been having diarrhea. He has been seeing his primary care doctor over the past week. Today he was felt to be too sick and told to go to the hospital. Patient has been on antibiotics for a UTI for the past 3 days. He has not had any fevers. He does get short of breath with exertion.Patient has no other complaints at this time including chest pain, abdominal pain, nausea or vomiting, headache, or visual changes. - Related Data Home Medications Medication Instructions Recorded Confirmed glipiZIDE [Glucotrol] 5 mg PO BID 10/30/14 11/18/21 Cyanocobalamin (Vitamin B-12) 5,000 mcg PO DAILY 04/17/17 11/18/21 [Vitamin B-12] Atorvastatin [Lipitor] 40 mg PO HS 11/04/18 11/18/21 Finasteride [Proscar] 5 mg PO DAILY 12/01/18 11/18/21 sitaGLIPtin PHOSPHATE [Januvia] 100 mg PO DAILY 01/16/21 11/18/21 Cefdinir 300 mg PO BID 11/18/21 11/18/21 Donepezil HCl [Aricept] 10 mg PO HS 11/18/21 11/18/21 Escitalopram [Lexapro] 10 mg PO DAILY 11/18/21 11/18/21 Famotidine 40 mg PO HS 11/18/21 11/18/21 Meclizine [Antivert] 25 mg PO TID PRN 11/18/21 11/18/21 Metoprolol Tartrate [Lopressor] 12.5 mg PO BID 11/18/21 11/18/21 Tamsulosin HCl [Flomax] 0.8 mg PO DAILY 11/18/21 11/18/21 Previous Rx's Medication Instructions Recorded Aspirin 81 mg PO DAILY 04/20/17 Allergies Allergy/AdvReac Type Severity Reaction Status Date / Time No Known Allergies Allergy Verified 11/18/21 15:52 Review of Systems ROS Statement: Those systems with pertinent positive or pertinent negative responses have been documented in the HPI. ROS Other: All systems not noted in ROS Statement are negative. Past Medical History Past Medical History: Coronary Artery Disease (CAD), Cancer, CVA/TIA, Diabetes Mellitus, Hyperlipidemia, Hypertension, Myocardial Infarction (MT), Prostate Disorder, Sleep Apnea/CPAP/BIPAP, Vascular Disorder Additional Past Medical History / Comment(s): TIA in 2014, MICHAEL without device, CKD stage III, chronic low back pain, migraines in past, vertigo, balance issues, falls, BPH, benign colon polyp, diverticular disease, vascular disease with surgery-AAA repair and R leg bypass, skin cancer with removal. bladder cancer Last Myocardial Infarction Date:: 04/17/17 History of Any Multi-Drug Resistant Organisms: None Reported Past Surgical History: Adenoidectomy, Heart Catheterization With Stent, Tonsillectomy Additional Past Surgical History / Comment(s): 12/07/18 endovascular repair/stent graft infra renal aorta, R leg bypass surgery after AAA repair at [facility], colonoscopy/polypectomy, basal cell cancer removed from forehead, bilateral cataract removals/lens implants, cystoscopy -biopsy for cancer Past Anesthesia/Blood Transfusion Reactions: Motion Sickness Additional Past Anesthesia/Blood Transfusion Reaction / Comment(s): . Date of Last Stent Placement:: 03/2017 Past Psychological History: Anxiety, Depression Smoking Status: Former smoker - Past Family History Brother(s) Family Medical History: No Reported History Sister(s) Family Medical History: No Reported History Son(s) Family Medical History: No Reported History Father Family Medical History: Diabetes Mellitus, Myocardial Infarction (MT), Vascular Disorder Additional Family Medical History / Comment(s): Father of a MT at the age of 76 or 77yrs. He was an alcoholic. Mother Family Medical History: Deep Vein Thrombosis (DVT), Pulmonary Embolus Additional Family Medical History / Comment(s): Mother at 42 yrs of age of "blood clot" in the lung and it went to the heart. General Exam Limitations: no limitations General appearance: alert, in no apparent distress Head exam: Present: atraumatic Eye exam: Present: normal appearance, PERRL, EOMI. Absent: scleral icterus, conjunctival injection ENT exam: Present: normal exam, mucous membranes moist Neck exam: Present: normal inspection, full ROM. Absent: tenderness Respiratory exam: Present: normal lung sounds bilaterally. Absent: respiratory distress, wheezes Cardiovascular Exam: Present: regular rate, normal rhythm, normal heart sounds GI/Abdominal exam: Present: soft, normal bowel sounds. Absent: distended, tenderness Neurological exam: Present: alert Course Vital Signs 11/18/21 11/18/21 13:51 15:08 Temperature 97.0 F L Pulse Rate 75 70 Respiratory 20 20 Rate Blood Pressure 123/75 121/92 O2 Sat by Pulse 98 96 Oximetry EKG Findings - EKG Comments: EKG Findings:: Normal sinus rhythm, ventricular rate 66, IA interval 130, QTC 425 Medical Decision Making - Medical Decision Making Vitals are stable. Patient was transitioned to oxygen when we could not get a good waveform on him however he is 99% on room air with a good waveform at this point. CBC does show leukocytosis with a white count of 14. This is likely secondary to urinary tract infection. Lactic acid of 3.2. Patient was given a liter of fluids, not requiring 30 mL/kg bolus as his blood pressure is stable. He was given 2 g of Rocephin within 3 hours after sepsis diagnosis with UTI confirmation. CMP does reveal a K eye. Patient's baseline creatinine is 1.4 however today his creatinine is 3.72. Aceves catheter was placed given patient had 214ml post void residual in his bladder and states he has had problems with retention in the past. As patient is having diarrhea this is likely secondary to dehydration. Pt will be treated with Rocephin and fluids. Discussed case with Dr. Figueredo who will admit patient. - Lab Data Result diagrams: 11/18/21 Unknown 11/18/21 Unknown Lab Results 11/18/21 11/18/21 11/18/21 Range/Units 14:56 15:29 Unknown WBC 14.0 H (3.8-10.6) k/uL RBC 3.82 L (4.30-5.90) m/uL Hgb 12.5 L (13.0-17.5) gm/dL Hct 39.6 (39.0-53.0) % MCV 103.5 H (80.0-100.0) fL MCH 32.8 (25.0-35.0) pg MCHC 31.7 (31.0-37.0) g/dL RDW 13.0 (11.5-15.5) % Plt Count 299 (150-450) k/uL MPV 7.8 Neutrophils % 82 % Lymphocytes % 9 % Monocytes % 7 % Eosinophils % 0 % Basophils % 0 % Neutrophils # 11.4 H (1.3-7.7) k/uL Lymphocytes # 1.2 (1.0-4.8) k/uL Monocytes # 0.9 (0-1.0) k/uL Eosinophils # 0.0 (0-0.7) k/uL Basophils # 0.0 (0-0.2) k/uL Macrocytosis Slight PT (9.0-12.0) sec INR (<1.2) APTT (22.0-30.0) sec Sodium (137-145) mmol/L Potassium (3.5-5.1) mmol/L Chloride (98-107) mmol/L Carbon Dioxide (22-30) mmol/L Anion Gap mmol/L BUN (9-20) mg/dL Creatinine (0.66-1.25) mg/dL Est GFR (CKD-EPI)AfAm (>60 ml/min/1.73 sqM) Est GFR (CKD-EPI)NonAf (>60 ml/min/1.73 sqM) Glucose (74-99) mg/dL Plasma Lactic Acid Zander (0.7-2.0) mmol/L Calcium (8.4-10.2) mg/dL Magnesium (1.6-2.3) mg/dL Total Bilirubin (0.2-1.3) mg/dL AST (17-59) U/L ALT (4-49) U/L Alkaline Phosphatase (38-126) U/L NT-Pro-B Natriuret Pep pg/mL Total Protein (6.3-8.2) g/dL Albumin (3.5-5.0) g/dL Urine Color Light Yellow Urine Appearance Turbid (Clear) Urine pH 6.5 (5.0-8.0) Ur Specific [place] 1.014 (1.001-1.035) Urine Protein 1+ H (Negative) Urine Glucose (UA) Negative (Negative) Urine Ketones Negative (Negative) Urine Blood Moderate H (Negative) Urine Nitrite Negative (Negative) Urine Bilirubin Negative (Negative) Urine Urobilinogen <2.0 (<2.0) mg/dL Ur Leukocyte Esterase Large H (Negative) Urine RBC 18 H (0-5) /hpf Urine WBC >182 H (0-5) /hpf Urine WBC Clumps Occasional H (None) /hpf Ur Squamous Epith Cells <1 (0-4) /hpf Urine Bacteria Occasional H (None) /hpf Coronavirus (PCR) Not Detected (Not Detectd) 11/18/21 11/18/21 11/18/21 Range/Units Unknown Unknown Unknown WBC (3.8-10.6) k/uL RBC (4.30-5.90) m/uL Hgb (13.0-17.5) gm/dL Hct (39.0-53.0) % MCV (80.0-100.0) fL MCH (25.0-35.0) pg MCHC (31.0-37.0) g/dL RDW (11.5-15.5) % Plt Count (150-450) k/uL MPV Neutrophils % % Lymphocytes % % Monocytes % % Eosinophils % % Basophils % % Neutrophils # (1.3-7.7) k/uL Lymphocytes # (1.0-4.8) k/uL Monocytes # (0-1.0) k/uL Eosinophils # (0-0.7) k/uL Basophils # (0-0.2) k/uL Macrocytosis PT 10.3 (9.0-12.0) sec INR 0.9 (<1.2) APTT 22.6 (22.0-30.0) sec Sodium 133 L (137-145) mmol/L Potassium 5.4 H (3.5-5.1) mmol/L Chloride 103 (98-107) mmol/L Carbon Dioxide 19 L (22-30) mmol/L Anion Gap 11 mmol/L BUN 46 H (9-20) mg/dL Creatinine 3.72 H (0.66-1.25) mg/dL Est GFR (CKD-EPI)AfAm 16 (>60 ml/min/1.73 sqM) Est GFR (CKD-EPI)NonAf 14 (>60 ml/min/1.73 sqM) Glucose 75 (74-99) mg/dL Plasma Lactic Acid Zander 3.2 H* (0.7-2.0) mmol/L Calcium 9.4 (8.4-10.2) mg/dL Magnesium 1.8 (1.6-2.3) mg/dL Total Bilirubin 0.9 (0.2-1.3) mg/dL AST 112 H (17-59) U/L ALT 50 H (4-49) U/L Alkaline Phosphatase 125 (38-126) U/L NT-Pro-B Natriuret Pep pg/mL Total Protein 7.3 (6.3-8.2) g/dL Albumin 3.4 L (3.5-5.0) g/dL Urine Color Urine Appearance (Clear) Urine pH (5.0-8.0) Ur Specific [place] (1.001-1.035) Urine Protein (Negative) Urine Glucose (UA) (Negative) Urine Ketones (Negative) Urine Blood (Negative) Urine Nitrite (Negative) Urine Bilirubin (Negative) Urine Urobilinogen (<2.0) mg/dL Ur Leukocyte Esterase (Negative) Urine RBC (0-5) /hpf Urine WBC (0-5) /hpf Urine WBC Clumps (None) /hpf Ur Squamous Epith Cells (0-4) /hpf Urine Bacteria (None) /hpf Coronavirus (PCR) (Not Detectd) 11/18/21 Range/Units Unknown WBC (3.8-10.6) k/uL RBC (4.30-5.90) m/uL Hgb (13.0-17.5) gm/dL Hct (39.0-53.0) % MCV (80.0-100.0) fL MCH (25.0-35.0) pg MCHC (31.0-37.0) g/dL RDW (11.5-15.5) % Plt Count (150-450) k/uL MPV Neutrophils % % Lymphocytes % % Monocytes % % Eosinophils % % Basophils % % Neutrophils # (1.3-7.7) k/uL Lymphocytes # (1.0-4.8) k/uL Monocytes # (0-1.0) k/uL Eosinophils # (0-0.7) k/uL Basophils # (0-0.2) k/uL Macrocytosis PT (9.0-12.0) sec INR (<1.2) APTT (22.0-30.0) sec Sodium (137-145) mmol/L Potassium (3.5-5.1) mmol/L Chloride (98-107) mmol/L Carbon Dioxide (22-30) mmol/L Anion Gap mmol/L BUN (9-20) mg/dL Creatinine (0.66-1.25) mg/dL Est GFR (CKD-EPI)AfAm (>60 ml/min/1.73 sqM) Est GFR (CKD-EPI)NonAf (>60 ml/min/1.73 sqM) Glucose (74-99) mg/dL Plasma Lactic Acid Zander (0.7-2.0) mmol/L Calcium (8.4-10.2) mg/dL Magnesium (1.6-2.3) mg/dL Total Bilirubin (0.2-1.3) mg/dL AST (17-59) U/L ALT (4-49) U/L Alkaline Phosphatase (38-126) U/L NT-Pro-B Natriuret Pep 3030 pg/mL Total Protein (6.3-8.2) g/dL Albumin (3.5-5.0) g/dL Urine Color Urine Appearance (Clear) Urine pH (5.0-8.0) Ur Specific [place] (1.001-1.035) Urine Protein (Negative) Urine Glucose (UA) (Negative) Urine Ketones (Negative) Urine Blood (Negative) Urine Nitrite (Negative) Urine Bilirubin (Negative) Urine Urobilinogen (<2.0) mg/dL Ur Leukocyte Esterase (Negative) Urine RBC (0-5) /hpf Urine WBC (0-5) /hpf Urine WBC Clumps (None) /hpf Ur Squamous Epith Cells (0-4) /hpf Urine Bacteria (None) /hpf Coronavirus (PCR) (Not Detectd) Disposition Clinical Impression: Weakness, CELE (acute kidney injury), Dehydration, Diarrhea, UTI (urinary tract infection), Lactic acidosis Disposition: ADMITTED IP TO THIS HOSP Is patient prescribed a controlled substance at d/c from ED?: No Referrals: Chinedu Contreras MD [Primary Care Provider] - 1-2 days Time of Disposition: 16:31
[2021-11-18 15:05] LABS: Albumin 3.4 g/dL (3.5-5.0); Calcium 9.4 mg/dL (8.4-10.2); Magnesium 1.8 mg/dL (1.6-2.3); Potassium 5.4 mmol/L (3.5-5.1); Total Bilirubin 0.9 mg/dL (0.2-1.3); Total Protein 7.3 g/dL (6.3-8.2)
[2021-11-18 15:10] LABS: Basophils % (A) 0 %; Eosinophils % (A) 0 %; HCT 39.6 % (39.0-53.0); HGB 12.5 gm/dL (13.0-17.5); Lymphocytes # (A) 1.2 k/uL (1.0-4.8); Lymphocytes % (A) 9 %; MCH 32.8 pg (25.0-35.0); MCHC 31.7 g/dL (31.0-37.0); MCV 103.5 fL (80.0-100.0); Macrocytosis Slight; Mean Platelet Volume 7.8; Monocytes # (A) 0.9 k/uL (0-1.0); Monocytes % (A) 7 %; Neutrophils # (A) 11.4 k/uL (1.3-7.7); Neutrophils % (A) 82 %; Platelet Count 299 k/uL (150-450); RBC 3.82 m/uL (4.30-5.90)
[2021-11-18 15:18] LABS: INR 0.9 (<1.2); Partial Thromboplastin Time 22.6 sec (22.0-30.0); Prothrombin Time 10.3 sec (9.0-12.0)
--- NOTE | 2021-11-18 15:51 | XR ---
EXAMINATION TYPE: XR chest 2V DATE OF EXAM: 11/18/2021 COMPARISON: Chest x-ray March 13, 2019 HISTORY: Weakness. TECHNIQUE: Frontal and lateral views of the chest are obtained. FINDINGS: There is mild chronic parenchymal changes bilaterally without suspicious focal air space o pacity, pleural effusion, or pneumothorax seen. The cardiac silhouette size remains within normal li mits. The osseous structures are demineralized. IMPRESSION: No acute cardiopulmonary process. No significant change from prior.
[2021-11-18 15:55] LABS: Appearance,Urine Turbid (Clear); Bacteria,Urine Occasional /hpf; Bilirubin,Urine Negative (Negative); Blood,Urine Moderate (Negative); Color,Urine Light Yellow; Glucose,Urine (UA) Negative (Negative); Ketones,Urine Negative (Negative); Leukocyte Esterase,Urine Large (Negative); Nitrite,Urine Negative (Negative); PH, Urine 6.5 (5.0-8.0); Protein,Urine 1+ (Negative); RBC,Urine 18 /hpf (0-5); Specific Gravity,Urine 1.014 (1.001-1.035); Squamous Epithelial Cell,Urine <1 /hpf (0-4); Urobilinogen,Urine <2.0 mg/dL (<2.0); WBC,Urine >182 /hpf (0-5)
[2021-11-18] MEDS ORDERED: SODIUM CHLORIDE 0.9% 1,000 ML IV STA (16:09)
[2021-11-18] MEDS ORDERED: cefTRIAXone IN SWFI 1,000 MG/10 ML SYRINGE IVP STA (16:09)
[2021-11-18] MEDS ORDERED: ONDANSETRON 4 MG/2 ML VIAL IVP PRN (16:33)
[2021-11-18] MEDS ORDERED: NALOXONE 0.4 MG/ML 1 ML VIAL IV PRN (16:33)
[2021-11-18] MEDS ORDERED: MECLIZINE 25 MG TAB PO PRN (16:34)
--- NOTE | 2021-11-18 16:39 | P.HPIM ---
History of Present Illness H&P Date: 11/18/21 86-year-old male with past medical history of chronic kidney disease likely stage III hypertension diabetes admitted to the hospital for weakness for the last few days the patient also has been having diarrhea Review of systems and systems has been reviewed all negative and positive findin gs as per history of present illness Constitutional: No acute distress, conversant, pleasant Eyes: Anicteric sclerae, moist conjunctiva, no lid-lag PERRLA ENMT: NC/AT Oropharynx clear, no erythema, exudates Neck: Supple, FROM, no masses, or JVD No carotid bruits No thyromegaly Lungs: Clear to auscultation Clear to percussion Normal respiratory effort, no accessory muscle use Cardiovascular: Heart regular in rate and rhythm, No murmurs, gallops, or rubs No peripheral edema Abdominal: Soft Nontender, no guarding, rebound or rigidity Abdomen moving with respiration Normoactive bowel sounds No hepatomegaly, No splenomegaly No palpable mass No abdominal wall hernia noted Skin: Normal temperature, tone, texture, turgor No induration No subcutaneous nodules No rash, lesions No ulcers Extremities: No digital cyanosis No clubbing Pedal pulses intact and symmetrical Radial pulses intact and symmetrical Normal gait and station No calf tenderness Psychiatric:Alert and oriented to person, place and time Appropriate affect Intact judgement Neuro: Muscles Strength 5/5 in all 4 extremities Sensation to light touch grossly present throughout Cranial nerves II-XII grossly intact No focal sensory deficits Acute renal failure on CTD will start the patient on IV hydration UTI Continue patient on Rocephin Likely metabolic encephalopathy Diabetes we'll put the patient on sliding scale insulin Past Medical History Past Medical History: Coronary Artery Disease (CAD), Cancer, CVA/TIA, Diabetes Mellitus, Hyperlipidemia, Hypertension, Myocardial Infarction (NM), Prostate Disorder, Sleep Apnea/CPAP/BIPAP, Vascular Disorder Additional Past Medical History / Comment(s): TIA in 2015, MICHAEL without device, CKD stage III, chronic low back pain, migraines in past, vertigo, balance issues, falls, BPH, benign colon polyp, diverticular disease, vascular disease with surgery-AAA repair and R leg bypass, skin cancer with removal. bladder cancer Last Myocardial Infarction Date:: 04/17/17 History of Any Multi-Drug Resistant Organisms: None Reported Past Surgical History: Adenoidectomy, Heart Catheterization With Stent, Tonsillectomy Additional Past Surgical History / Comment(s): 12/07/18 endovascular repair/stent graft infra renal aorta, R leg bypass surgery after AAA repair at [facility], colonoscopy/polypectomy, basal cell cancer removed from forehead, bilateral cataract removals/lens implants, cystoscopy -biopsy for cancer Past Anesthesia/Blood Transfusion Reactions: Motion Sickness Additional Past Anesthesia/Blood Transfusion Reaction / Comment(s): . Date of Last Stent Placement:: 03/2017 Past Psychological History: Anxiety, Depression Smoking Status: Former smoker - Past Family History Brother(s) Family Medical History: No Reported History Sister(s) Family Medical History: No Reported History Son(s) Family Medical History: No Reported History Father Family Medical History: Diabetes Mellitus, Myocardial Infarction (NM), Vascular Disorder Additional Family Medical History / Comment(s): Father of a NM at the age of 76 or 77yrs. He was an alcoholic. Mother Family Medical History: Deep Vein Thrombosis (DVT), Pulmonary Embolus Additional Family Medical History / Comment(s): Mother at 42 yrs of age of "blood clot" in the lung and it went to the heart. Medications and Allergies Home Medications Medication Instructions Recorded Confirmed Type glipiZIDE [Glucotrol] 5 mg PO BID 10/30/14 11/18/21 History Cyanocobalamin (Vitamin B-12) 5,000 mcg PO DAILY 04/17/17 11/18/21 History [Vitamin B-12] Aspirin 81 mg PO DAILY 04/20/17 11/18/21 Rx Atorvastatin [Lipitor] 40 mg PO HS 11/04/18 11/18/21 History Finasteride [Proscar] 5 mg PO DAILY 12/01/18 11/18/21 History sitaGLIPtin PHOSPHATE [Januvia] 100 mg PO DAILY 01/16/21 11/18/21 History Cefdinir 300 mg PO BID 11/18/21 11/18/21 History Donepezil HCl [Aricept] 10 mg PO HS 11/18/21 11/18/21 History Escitalopram [Lexapro] 10 mg PO DAILY 11/18/21 11/18/21 History Famotidine 40 mg PO HS 11/18/21 11/18/21 History Meclizine [Antivert] 25 mg PO TID PRN 11/18/21 11/18/21 History Metoprolol Tartrate [Lopressor] 12.5 mg PO BID 11/18/21 11/18/21 History Tamsulosin HCl [Flomax] 0.8 mg PO DAILY 11/18/21 11/18/21 History Allergies Allergy/AdvReac Type Severity Reaction Status Date / Time No Known Allergies Allergy Verified 11/18/21 15:52 Physical Exam Vitals: Vital Signs Temp Pulse Resp BP Pulse Ox 11/18/21 15:08 70 20 121/92 96 11/18/21 13:51 97.0 F L 75 20 123/75 98 Intake and Output 11/18/21 11/18/21 11/18/21 06:59 14:59 22:59 Other: Weight 74.843 kg Results CBC & Chem 7: 11/18/21 Unknown 11/18/21 Unknown Labs: Abnormal Lab Results - Last 24 Hours (Table) 11/18/21 11/18/21 11/18/21 Range/Units 15:29 Unknown Unknown WBC 14.0 H (3.8-10.6) k/uL RBC 3.82 L (4.30-5.90) m/uL Hgb 12.5 L (13.0-17.5) gm/dL MCV 103.5 H (80.0-100.0) fL Neutrophils # 11.4 H (1.3-7.7) k/uL Sodium 133 L (137-145) mmol/L Potassium 5.4 H (3.5-5.1) mmol/L Carbon Dioxide 19 L (22-30) mmol/L BUN 46 H (9-20) mg/dL Creatinine 3.72 H (0.66-1.25) mg/dL Plasma Lactic Acid [place]ander (0.7-2.0) mmol/L AST 112 H (17-59) U/L ALT 50 H (4-49) U/L Albumin 3.4 L (3.5-5.0) g/dL Urine Protein 1+ H (Negative) Urine Blood Moderate H (Negative) Ur Leukocyte Esterase Large H (Negative) Urine RBC 18 H (0-5) /hpf Urine WBC >182 H (0-5) /hpf Urine WBC Clumps Occasional H (None) /hpf Urine Bacteria Occasional H (None) /hpf 11/18/21 Range/Units Unknown WBC (3.8-10.6) k/uL RBC (4.30-5.90) m/uL Hgb (13.0-17.5) gm/dL MCV (80.0-100.0) fL Neutrophils # (1.3-7.7) k/uL Sodium (137-145) mmol/L Potassium (3.5-5.1) mmol/L Carbon Dioxide (22-30) mmol/L BUN (9-20) mg/dL Creatinine (0.66-1.25) mg/dL Plasma Lactic Acid [place] 3.2 H* (0.7-2.0) mmol/L AST (17-59) U/L ALT (4-49) U/L Albumin (3.5-5.0) g/dL Urine Protein (Negative) Urine Blood (Negative) Ur Leukocyte Esterase (Negative) Urine RBC (0-5) /hpf Urine WBC (0-5) /hpf Urine WBC Clumps (None) /hpf Urine Bacteria (None) /hpf
[2021-11-18] MEDS ORDERED: SODIUM CHLORIDE 0.9% 1,000 ML IV SCH (16:45)
[2021-11-18] MEDS: glipiZIDE 5 MG TAB PO SCH (20:10)
[2021-11-18] MEDS: METOPROLOL TARTRATE 12.5 MG TAB PO SCH (20:10)
[2021-11-18] MEDS: ATORVASTATIN 40 MG TAB PO SCH (20:10)
[2021-11-18] MEDS: DONEPEZIL 10 MG TAB PO SCH (20:10)
[2021-11-18] MEDS: FAMOTIDINE 20 MG TAB PO SCH (20:10)
[2021-11-18 20:53] LABS: Glucose,Whole Blood 38 mg/dL (75-99)
[2021-11-18 20:53] LABS: Glucose,Whole Blood 40 mg/dL (75-99)
[2021-11-18] MEDS: DEXTROSE 5%-0.9% NACL 1,000 ML IV SCH (21:00)
[2021-11-18 21:29] LABS: Glucose,Whole Blood 45 mg/dL (75-99)
[2021-11-18 21:44] LABS: Glucose,Whole Blood 116 mg/dL (75-99)
[2021-11-19 02:20] LABS: Glucose,Whole Blood 89 mg/dL (75-99)
[2021-11-19 06:08] LABS: Basophils % (A) 0 %; Eosinophils % (A) 0 %; HCT 33.4 % (39.0-53.0); HGB 10.8 gm/dL (13.0-17.5); Lymphocytes # (A) 1.4 k/uL (1.0-4.8); Lymphocytes % (A) 10 %; MCH 33.8 pg (25.0-35.0); MCHC 32.2 g/dL (31.0-37.0); MCV 105.1 fL (80.0-100.0); Macrocytosis Slight; Mean Platelet Volume 7.6; Monocytes # (A) 0.7 k/uL (0-1.0); Monocytes % (A) 5 %; Neutrophils # (A) 10.7 k/uL (1.3-7.7); Neutrophils % (A) 81 %; Platelet Count 260 k/uL (150-450); RBC 3.18 m/uL (4.30-5.90); WBC 13.2 k/uL (3.8-10.6)
[2021-11-19 06:24] LABS: ALT 181 U/L (4-49); AST 306 U/L (17-59); African American GFR (CKD) 23 (>60 ml/min/1.73 sqM); Albumin 2.3 g/dL (3.5-5.0); Albumin/Globulin Ratio 0.7; Alkaline Phosphatase 130 U/L (38-126); Anion Gap 3 mmol/L; Blood Urea Nitrogen 38 mg/dL (9-20); Calcium 8.3 mg/dL (8.4-10.2); Carbon Dioxide 23 mmol/L (22-30); Chloride 108 mmol/L (98-107); Globulin 3.1 g/dL; Glucose 59 mg/dL (74-99); Non-African American GFR(CKD) 20 (>60 ml/min/1.73 sqM); Potassium 4.5 mmol/L (3.5-5.1); Sodium 134 mmol/L (137-145); Total Bilirubin 0.5 mg/dL (0.2-1.3); Total Protein 5.4 g/dL (6.3-8.2)
[2021-11-19 07:06] LABS: Glucose,Whole Blood 41 mg/dL (75-99)
[2021-11-19 07:08] LABS: Glucose,Whole Blood 42 mg/dL (75-99)
[2021-11-19] MEDS: INSULIN ASPART (NovoLOG) 100 UNIT/ML VIAL SQ SCH ×4 (07:15→19:12)
[2021-11-19] MEDS: LINAGLIPTIN 5 MG TABLET PO SCH (07:22)
[2021-11-19] MEDS: glipiZIDE 5 MG TAB PO SCH (07:22)
[2021-11-19 07:56] LABS: Glucose,Whole Blood 81 mg/dL (75-99)
[2021-11-19] MEDS: FINASTERIDE 5 MG TAB PO SCH (08:54)
[2021-11-19] MEDS: CYANOCOBALAMIN 500 MCG TAB PO SCH (08:54)
[2021-11-19] MEDS: TAMSULOSIN 0.4 MG CAP.ER.24H PO SCH (08:55)
[2021-11-19] MEDS: METOPROLOL TARTRATE 12.5 MG TAB PO SCH ×2 (08:55→19:12)
[2021-11-19] MEDS: ASPIRIN 81 MG PO SCH (08:55)
--- NOTE | 2021-11-19 09:00 | P.PN ---
Subjective Progress Note Date: 11/19/21 I will give much history no chest pain Review of systems and systems has been reviewed all negative and positive findings as per history of present illness Constitutional: No acute distress, conversant, pleasant Eyes: Anicteric sclerae, moist conjunctiva, no lid-lag PERRLA ENMT: NC/AT Oropharynx clear, no erythema, exudates Neck: Supple, FROM, no masses, or JVD No carotid bruits No thyromegaly Lungs: Clear to auscultation Clear to percussion Normal respiratory effort, no accessory muscle use Cardiovascular: Heart regular in rate and rhythm, No murmurs, gallops, or rubs No peripheral edema Abdominal: Soft Nontender, no guarding, rebound or rigidity Abdomen moving with respiration Normoactive bowel sounds No hepatomegaly, No splenomegaly No palpable mass No abdominal wall hernia noted Skin: Normal temperature, tone, texture, turgor No induration No subcutaneous nodules No rash, lesions No ulcers Extremities: No digital cyanosis No clubbing Pedal pulses intact and symmetrical Radial pulses intact and symmetrical Normal gait and station No calf tenderness Psychiatric:Alert and oriented to person, place and time Appropriate affect Intact judgement Neuro: Muscles Strength 5/5 in all 4 extremities Sensation to light touch grossly present throughout Cranial nerves II-XII grossly intact No focal sensory deficits Acute renal failure on CTD will start the patient on IV hydration Creatinine slightly improving today UTI Continue patient on Rocephin Likely metabolic encephalopathy Diabetes we'll put the patient on sliding scale insulin Objective - Vital Signs Vital signs: Vital Signs Temp 98.2 F 11/19/21 08:00 Pulse 94 11/19/21 08:00 Resp 16 11/19/21 08:00 BP 118/73 11/19/21 08:00 Pulse Ox 94 L 11/19/21 08:00 Intake & Output 11/18/21 11/19/21 11/19/21 18:59 06:59 18:59 Output Total 1999 Balance -1999 Weight 74.843 kg 77 kg Output: Urine 1999 Other: Voiding Method Indwelling Catheter Indwelling Catheter # Bowel Movements 0 1 - Labs CBC & Chem 7: 11/19/21 05:41 11/19/21 05:41 Labs: Abnormal Lab Results - Last 24 Hours (Table) 11/18/21 11/18/21 11/18/21 Range/Units 15:29 20:45 20:47 WBC (3.8-10.6) k/uL RBC (4.30-5.90) m/uL Hgb (13.0-17.5) gm/dL Hct (39.0-53.0) % MCV (80.0-100.0) fL Neutrophils # (1.3-7.7) k/uL Sodium (137-145) mmol/L Potassium (3.5-5.1) mmol/L Chloride (98-107) mmol/L Carbon Dioxide (22-30) mmol/L BUN (9-20) mg/dL Creatinine (0.66-1.25) mg/dL Glucose (74-99) mg/dL POC Glucose (mg/dL) 38 L 40 L (75-99) mg/dL Hemoglobin A1c (0.0-6.0) % Plasma Lactic Acid Zander (0.7-2.0) mmol/L Calcium (8.4-10.2) mg/dL AST (17-59) U/L ALT (4-49) U/L Alkaline Phosphatase (38-126) U/L Total Protein (6.3-8.2) g/dL Albumin (3.5-5.0) g/dL Urine Protein 1+ H (Negative) Urine Blood Moderate H (Negative) Ur Leukocyte Esterase Large H (Negative) Urine RBC 18 H (0-5) /hpf Urine WBC >182 H (0-5) /hpf Urine WBC Clumps Occasional H (None) /hpf Urine Bacteria Occasional H (None) /hpf 11/18/21 11/18/21 11/18/21 Range/Units 21:26 21:42 Unknown WBC 14.0 H (3.8-10.6) k/uL RBC 3.82 L (4.30-5.90) m/uL Hgb 12.5 L (13.0-17.5) gm/dL Hct (39.0-53.0) % MCV 103.5 H (80.0-100.0) fL Neutrophils # 11.4 H (1.3-7.7) k/uL Sodium (137-145) mmol/L Potassium (3.5-5.1) mmol/L Chloride (98-107) mmol/L Carbon Dioxide (22-30) mmol/L BUN (9-20) mg/dL Creatinine (0.66-1.25) mg/dL Glucose (74-99) mg/dL POC Glucose (mg/dL) 45 L 116 H (75-99) mg/dL Hemoglobin A1c (0.0-6.0) % Plasma Lactic Acid Zander (0.7-2.0) mmol/L Calcium (8.4-10.2) mg/dL AST (17-59) U/L ALT (4-49) U/L Alkaline Phosphatase (38-126) U/L Total Protein (6.3-8.2) g/dL Albumin (3.5-5.0) g/dL Urine Protein (Negative) Urine Blood (Negative) Ur Leukocyte Esterase (Negative) Urine RBC (0-5) /hpf Urine WBC (0-5) /hpf Urine WBC Clumps (None) /hpf Urine Bacteria (None) /hpf 11/18/21 11/18/21 11/19/21 Range/Units Unknown Unknown 05:41 WBC (3.8-10.6) k/uL RBC (4.30-5.90) m/uL Hgb (13.0-17.5) gm/dL Hct (39.0-53.0) % MCV (80.0-100.0) fL Neutrophils # (1.3-7.7) k/uL Sodium 133 L (137-145) mmol/L Potassium 5.4 H (3.5-5.1) mmol/L Chloride (98-107) mmol/L Carbon Dioxide 19 L (22-30) mmol/L BUN 46 H (9-20) mg/dL Creatinine 3.72 H (0.66-1.25) mg/dL Glucose (74-99) mg/dL POC Glucose (mg/dL) (75-99) mg/dL Hemoglobin A1c 6.4 H (0.0-6.0) % Plasma Lactic Acid Zander 3.2 H* (0.7-2.0) mmol/L Calcium (8.4-10.2) mg/dL AST 112 H (17-59) U/L ALT 50 H (4-49) U/L Alkaline Phosphatase (38-126) U/L Total Protein (6.3-8.2) g/dL Albumin 3.4 L (3.5-5.0) g/dL Urine Protein (Negative) Urine Blood (Negative) Ur Leukocyte Esterase (Negative) Urine RBC (0-5) /hpf Urine WBC (0-5) /hpf Urine WBC Clumps (None) /hpf Urine Bacteria (None) /hpf 11/19/21 11/19/21 11/19/21 Range/Units 05:41 05:41 07:05 WBC 13.2 H (3.8-10.6) k/uL RBC 3.18 L (4.30-5.90) m/uL Hgb 10.8 L (13.0-17.5) gm/dL Hct 33.4 L (39.0-53.0) % MCV 105.1 H (80.0-100.0) fL Neutrophils # 10.7 H (1.3-7.7) k/uL Sodium 134 L (137-145) mmol/L Potassium (3.5-5.1) mmol/L Chloride 108 H (98-107) mmol/L Carbon Dioxide (22-30) mmol/L BUN 38 H (9-20) mg/dL Creatinine 2.78 H (0.66-1.25) mg/dL Glucose 59 L (74-99) mg/dL POC Glucose (mg/dL) 41 L (75-99) mg/dL Hemoglobin A1c (0.0-6.0) % Plasma Lactic Acid Zander (0.7-2.0) mmol/L Calcium 8.3 L (8.4-10.2) mg/dL AST 306 H (17-59) U/L ALT 181 H (4-49) U/L Alkaline Phosphatase 130 H (38-126) U/L Total Protein 5.4 L (6.3-8.2) g/dL Albumin 2.3 L (3.5-5.0) g/dL Urine Protein (Negative) Urine Blood (Negative) Ur Leukocyte Esterase (Negative) Urine RBC (0-5) /hpf Urine WBC (0-5) /hpf Urine WBC Clumps (None) /hpf Urine Bacteria (None) /hpf 11/19/21 Range/Units 07:07 WBC (3.8-10.6) k/uL RBC (4.30-5.90) m/uL Hgb (13.0-17.5) gm/dL Hct (39.0-53.0) % MCV (80.0-100.0) fL Neutrophils # (1.3-7.7) k/uL Sodium (137-145) mmol/L Potassium (3.5-5.1) mmol/L Chloride (98-107) mmol/L Carbon Dioxide (22-30) mmol/L BUN (9-20) mg/dL Creatinine (0.66-1.25) mg/dL Glucose (74-99) mg/dL POC Glucose (mg/dL) 42 L (75-99) mg/dL Hemoglobin A1c (0.0-6.0) % Plasma Lactic Acid Zander (0.7-2.0) mmol/L Calcium (8.4-10.2) mg/dL AST (17-59) U/L ALT (4-49) U/L Alkaline Phosphatase (38-126) U/L Total Protein (6.3-8.2) g/dL Albumin (3.5-5.0) g/dL Urine Protein (Negative) Urine Blood (Negative) Ur Leukocyte Esterase (Negative) Urine RBC (0-5) /hpf Urine WBC (0-5) /hpf Urine WBC Clumps (None) /hpf Urine Bacteria (None) /hpf Microbiology - Last 24 Hours (Table) 11/18/21 15:29 Urine Culture - Preliminary Urine,Voided
[2021-11-19] MEDS: ESCITALOPRAM 10 MG TAB PO SCH (09:12)
[2021-11-19 11:41] LABS: Glucose,Whole Blood 39 mg/dL (75-99)
[2021-11-19 11:41] LABS: Glucose,Whole Blood 44 mg/dL (75-99)
[2021-11-19 12:10] LABS: Glucose,Whole Blood 47 mg/dL (75-99)
[2021-11-19 16:41] LABS: Glucose,Whole Blood 151 mg/dL (75-99)
[2021-11-19] MEDS ORDERED: cefTRIAXone IN SWFI 1,000 MG/10 ML SYRINGE IVP SCH (17:00)
[2021-11-19 19:08] LABS: Glucose,Whole Blood 259 mg/dL (75-99)
[2021-11-19] MEDS: FAMOTIDINE 20 MG TAB PO SCH (19:12)
[2021-11-19] MEDS: DONEPEZIL 10 MG TAB PO SCH (19:12)
[2021-11-19] MEDS: ATORVASTATIN 40 MG TAB PO SCH (19:13)
[2021-11-19] MEDS: DEXTROSE 5%-0.9% NACL 1,000 ML IV SCH (20:36)
[2021-11-20 01:40] LABS: Glucose,Whole Blood 223 mg/dL (75-99)
[2021-11-20] MEDS: DEXTROSE 5%-0.9% NACL 1,000 ML IV SCH ×2 (02:09→18:08)
[2021-11-20 06:17] LABS: Basophils % (A) 0 %; Eosinophils # (A) 0.3 k/uL (0-0.7); Eosinophils % (A) 3 %; Hypochromasia Slight; Lymphocytes # (A) 1.2 k/uL (1.0-4.8); Lymphocytes % (A) 12 %; MCHC 32.4 g/dL (31.0-37.0); MCV 104.9 fL (80.0-100.0); Macrocytosis Slight; Mean Platelet Volume 7.7; Monocytes # (A) 0.9 k/uL (0-1.0); Monocytes % (A) 9 %; Neutrophils % (A) 72 %; Platelet Count 233 k/uL (150-450); RBC 3.24 m/uL (4.30-5.90); RDW 12.3 % (11.5-15.5); WBC 9.7 k/uL (3.8-10.6)
[2021-11-20 06:27] LABS: ALT 158 U/L (4-49); AST 149 U/L (17-59); African American GFR (CKD) 24 (>60 ml/min/1.73 sqM); Albumin 2.2 g/dL (3.5-5.0); Albumin/Globulin Ratio 0.7; Alkaline Phosphatase 130 U/L (38-126); Anion Gap 2 mmol/L; Blood Urea Nitrogen 34 mg/dL (9-20); Calcium 8.3 mg/dL (8.4-10.2); Carbon Dioxide 26 mmol/L (22-30); Chloride 104 mmol/L (98-107); Globulin 3.1 g/dL; Glucose 244 mg/dL (74-99); Non-African American GFR(CKD) 21 (>60 ml/min/1.73 sqM); Sodium 132 mmol/L (137-145); Total Bilirubin 0.3 mg/dL (0.2-1.3); Total Protein 5.3 g/dL (6.3-8.2)
[2021-11-20 07:00] LABS: Glucose,Whole Blood 252 mg/dL (75-99)
[2021-11-20] MEDS: INSULIN ASPART (NovoLOG) 100 UNIT/ML VIAL SQ SCH ×4 (07:33→19:50)
[2021-11-20] MEDS: CYANOCOBALAMIN 500 MCG TAB PO SCH (07:33)
[2021-11-20] MEDS: TAMSULOSIN 0.4 MG CAP.ER.24H PO SCH (07:34)
[2021-11-20] MEDS: METOPROLOL TARTRATE 12.5 MG TAB PO SCH ×2 (07:34→19:50)
[2021-11-20] MEDS: ASPIRIN 81 MG PO SCH (07:35)
[2021-11-20] MEDS: LINAGLIPTIN 5 MG TABLET PO SCH (07:35)
[2021-11-20] MEDS: ESCITALOPRAM 10 MG TAB PO SCH (07:35)
[2021-11-20] MEDS: FINASTERIDE 5 MG TAB PO SCH (07:38)
--- NOTE | 2021-11-20 09:04 | P.PN ---
Subjective Progress Note Date: 11/20/21 Principal diagnosis: Patient is sleepy today but feels better no chest pain or shortness of breath Constitutional: No acute distress, conversant, pleasant Eyes: Anicteric sclerae, moist conjunctiva, no lid-lag PERRLA ENMT: NC/AT Oropharynx clear, no erythema, exudates Neck: Supple, FROM, no masses, or JVD No carotid bruits No thyromegaly Lungs: Clear to auscultation Clear to percussion Normal respiratory effort, no accessory muscle use Cardiovascular: Heart regular in rate and rhythm, No murmurs, gallops, or rubs No peripheral edema Abdominal: Soft Nontender, no guarding, rebound or rigidity Abdomen moving with respiration Normoactive bowel sounds No hepatomegaly, No splenomegaly No palpable mass No abdominal wall hernia noted Skin: Normal temperature, tone, texture, turgor No induration No subcutaneous nodules No rash, lesions No ulcers Extremities: No digital cyanosis No clubbing Pedal pulses intact and symmetrical Radial pulses intact and symmetrical Normal gait and station No calf tenderness Psychiatric:Alert and oriented to person, place and time Appropriate affect Intact judgement Neuro: Muscles Strength 5/5 in all 4 extremities Sensation to light touch grossly present throughout Cranial nerves II-XII grossly intact No focal sensory deficits Acute renal failure on CTD will start the patient on IV hydration Creatinine slightly improving today UTI Continue patient on Rocephin Likely metabolic encephalopathy Diabetes we'll put the patient on sliding scale insulin Acute renal failure creatinine still above 2 we'll continue IV hydration overall stable Objective - Vital Signs Vital signs: Vital Signs Temp 98.2 F 11/20/21 07:55 Pulse 62 11/20/21 07:55 Resp 18 11/20/21 07:55 BP 157/81 11/20/21 07:55 Pulse Ox 98 11/20/21 07:55 Intake & Output 11/19/21 11/20/21 11/20/21 18:59 06:59 18:59 Output Total 2625 Balance -2625 Output: Urine 2625 Other: Voiding Method Indwelling Catheter Indwelling Catheter Indwelling Catheter # Bowel Movements 1 - Labs CBC & Chem 7: 11/20/21 05:31 11/20/21 05:31 Labs: Abnormal Lab Results - Last 24 Hours (Table) 11/19/21 11/19/21 11/19/21 Range/Units 11:39 11:40 12:08 RBC (4.30-5.90) m/uL Hgb (13.0-17.5) gm/dL Hct (39.0-53.0) % MCV (80.0-100.0) fL Sodium (137-145) mmol/L BUN (9-20) mg/dL Creatinine (0.66-1.25) mg/dL Glucose (74-99) mg/dL POC Glucose (mg/dL) 44 L 39 L 47 L (75-99) mg/dL Calcium (8.4-10.2) mg/dL AST (17-59) U/L ALT (4-49) U/L Alkaline Phosphatase (38-126) U/L Total Protein (6.3-8.2) g/dL Albumin (3.5-5.0) g/dL 11/19/21 11/19/21 11/20/21 Range/Units 16:39 19:07 01:39 RBC (4.30-5.90) m/uL Hgb (13.0-17.5) gm/dL Hct (39.0-53.0) % MCV (80.0-100.0) fL Sodium (137-145) mmol/L BUN (9-20) mg/dL Creatinine (0.66-1.25) mg/dL Glucose (74-99) mg/dL POC Glucose (mg/dL) 151 H 259 H 223 H (75-99) mg/dL Calcium (8.4-10.2) mg/dL AST (17-59) U/L ALT (4-49) U/L Alkaline Phosphatase (38-126) U/L Total Protein (6.3-8.2) g/dL Albumin (3.5-5.0) g/dL 11/20/21 11/20/21 11/20/21 Range/Units 05:31 05:31 06:58 RBC 3.24 L (4.30-5.90) m/uL Hgb 11.0 L (13.0-17.5) gm/dL Hct 34.0 L (39.0-53.0) % MCV 104.9 H (80.0-100.0) fL Sodium 132 L (137-145) mmol/L BUN 34 H (9-20) mg/dL Creatinine 2.66 H (0.66-1.25) mg/dL Glucose 244 H (74-99) mg/dL POC Glucose (mg/dL) 252 H (75-99) mg/dL Calcium 8.3 L (8.4-10.2) mg/dL AST 149 H (17-59) U/L ALT 158 H (4-49) U/L Alkaline Phosphatase 130 H (38-126) U/L Total Protein 5.3 L (6.3-8.2) g/dL Albumin 2.2 L (3.5-5.0) g/dL Microbiology - Last 24 Hours (Table) 11/18/21 15:29 Urine Culture - Final Urine,Voided 11/18/21 17:00 Blood Culture - Preliminary Blood No Growth after 24 hours 11/18/21 17:15 Blood Culture - Preliminary Blood No Growth after 24 hours
[2021-11-20 11:57] LABS: Glucose,Whole Blood 286 mg/dL (75-99)
[2021-11-20 16:14] LABS: Glucose,Whole Blood 339 mg/dL (75-99)
[2021-11-20 19:35] LABS: Glucose,Whole Blood 265 mg/dL (75-99)
[2021-11-20] MEDS: DONEPEZIL 10 MG TAB PO SCH (19:50)
[2021-11-20] MEDS: ATORVASTATIN 40 MG TAB PO SCH (19:50)
[2021-11-20] MEDS: FAMOTIDINE 20 MG TAB PO SCH (19:50)
[2021-11-21 02:25] LABS: Glucose,Whole Blood 243 mg/dL (75-99)
[2021-11-21] MEDS: DEXTROSE 5%-0.9% NACL 1,000 ML IV SCH ×2 (02:45→16:51)
[2021-11-21 07:10] LABS: Glucose,Whole Blood 283 mg/dL (75-99)
[2021-11-21] MEDS: INSULIN ASPART (NovoLOG) 100 UNIT/ML VIAL SQ SCH ×4 (07:46→20:25)
[2021-11-21] MEDS: ESCITALOPRAM 10 MG TAB PO SCH (07:47)
[2021-11-21] MEDS: LINAGLIPTIN 5 MG TABLET PO SCH (07:47)
[2021-11-21] MEDS: TAMSULOSIN 0.4 MG CAP.ER.24H PO SCH (07:47)
[2021-11-21] MEDS: METOPROLOL TARTRATE 12.5 MG TAB PO SCH ×2 (07:47→20:26)
[2021-11-21] MEDS: ASPIRIN 81 MG PO SCH (07:47)
[2021-11-21] MEDS: CYANOCOBALAMIN 500 MCG TAB PO SCH (07:47)
[2021-11-21] MEDS: FINASTERIDE 5 MG TAB PO SCH (07:48)
[2021-11-21 09:04] LABS: Basophils # (A) 0.04 X 10*3/uL (0.00-0.10); Basophils % (A) 0.3 %; Eosinophils # (A) 0.35 X 10*3/uL (0.04-0.35); Eosinophils % (A) 2.9 %; HCT 32.8 % (39.6-50.0); HGB 10.1 g/dL (13.0-17.0); Lymphocytes # (A) 1.89 X 10*3/uL (0.90-5.00); Lymphocytes % (A) 15.6 %; MCH 31.8 pg (27.0-32.0); MCHC 30.8 g/dL (32.0-37.0); MCV 103.1 fL (80.0-97.0); Monocytes % (A) 9.9 %; Neutrophils # (A) 8.55 X 10*3/uL (1.80-7.70); Neutrophils % (A) 70.8 %; Platelet Count 253 X 10*3/uL (140-440); RBC 3.18 X 10*6/uL (4.40-5.60); RDW 12.2 % (11.5-14.5); WBC 12.09 X 10*3/uL (4.50-10.00)
[2021-11-21 09:14] LABS: ALT 133 U/L (10-49); AST 79 U/L (14-35); African American GFR (CKD) 36.7 (60.0-200.0); Albumin 2.5 g/dL (3.8-4.9); Albumin/Globulin Ratio 0.93 (1.60-3.17); Alkaline Phosphatase 131 U/L (41-126); BUN/Creat Ratio 14.68 Ratio (12.00-20.00); Blood Urea Nitrogen 27.9 mg/dL (9.0-27.0); Calcium 8.7 mg/dL (8.7-10.3); Carbon Dioxide 21.9 mmol/L (20.0-27.5); Chloride 101 mmol/L (96-109); Globulin 2.7 g/dL (1.6-3.3); Glucose 268 mg/dL (70-110); Non-African American GFR(CKD) 31.7 (60.0-200.0); Sodium 131 mmol/L (135-145); Total Bilirubin <0.20 mg/dL (0.30-1.20); Total Protein 5.2 g/dL (6.2-8.2)
--- NOTE | 2021-11-21 11:30 | P.PN ---
Subjective Progress Note Date: 11/21/21 Patient still feels weak onstitutional: No acute distress, conversant, pleasant Eyes: Anicteric sclerae, moist conjunctiva, no lid-lag PERRLA ENMT: NC/AT Oropharynx clear, no erythema, exudates Neck: Supple, FROM, no masses, or JVD No carotid bruits No thyromegaly Lungs: Clear to auscultation Clear to percussion Normal respiratory effort, no accessory muscle use Cardiovascular: Heart regular in rate and rhythm, No murmurs, gallops, or rubs No peripheral edema Abdominal: Soft Nontender, no guarding, rebound or rigidity Abdomen moving with respiration Normoactive bowel sounds No hepatomegaly, No splenomegaly No palpable mass No abdominal wall hernia noted Skin: Normal temperature, tone, texture, turgor No induration No subcutaneous nodules No rash, lesions No ulcers Extremities: No digital cyanosis No clubbing Pedal pulses intact and symmetrical Radial pulses intact and symmetrical Normal gait and station No calf tenderness Psychiatric:Alert and oriented to person, place and time Appropriate affect Intact judgement Neuro: Muscles Strength 5/5 in all 4 extremities Sensation to light touch grossly present throughout Cranial nerves II-XII grossly intact No focal sensory deficits Acute renal failure on CTD will start the patient on IV hydration Creatinine slightly improving today UTI Continue patient on Rocephin Likely metabolic encephalopathy Diabetes we'll put the patient on sliding scale insulin Acute renal failure creatinine still above 2 we'll continue IV hydration overall stable Patient overall improving hopefully discharge home in a day or 2 Objective - Vital Signs Vital signs: Vital Signs Temp 97.6 F 11/21/21 08:00 Pulse 65 11/21/21 08:00 Resp 18 11/21/21 08:00 BP 152/77 11/21/21 08:00 Pulse Ox 98 11/21/21 08:00 Intake & Output 11/20/21 11/21/21 11/21/21 18:59 06:59 18:59 Intake Total 480 650 Output Total 1500 1950 420 Balance -1500 -1470 230 Intake: Intake, IV Titration 650 Amount Dextrose 5%-0.9% NaCl 1, 600 000 ml @ 75 mls/hr IV . [id number] [facility] Rx#:[id number] cefTRIAXone 2 gm In 50 Sodium Chloride 0.9% 50 ml @ 100 mls/hr IVPB Q24HR [facility] Rx#:[id number] Oral 480 Output: Urine 1500 1950 Stool 420 Other: Voiding Method Indwelling Catheter Indwelling Catheter Indwelling Catheter # Bowel Movements 1 - Labs CBC & Chem 7: 11/21/21 06:02 11/21/21 06:02 Labs: Abnormal Lab Results - Last 24 Hours (Table) 11/20/21 11/20/21 11/20/21 Range/Units 11:56 16:13 19:33 WBC (4.50-10.00) X 10*3/uL RBC (4.40-5.60) X 10*6/uL Hgb (13.0-17.0) g/dL Hct (39.6-50.0) % MCV (80.0-97.0) fL MCHC (32.0-37.0) g/dL Immature Gran # (0.00-0.04) X 10*3/uL Neutrophils # (1.80-7.70) X 10*3/uL Monocytes # (0.20-1.00) X 10*3/uL Sodium (135-145) mmol/L Anion Gap (10.00-18.00) mmol/L BUN (9.0-27.0) mg/dL Creatinine (0.6-1.5) mg/dL Est GFR (CKD-EPI)AfAm (60.0-200.0) Est GFR (CKD-EPI)NonAf (60.0-200.0) Glucose (70-110) mg/dL POC Glucose (mg/dL) 286 H 339 H 265 H (75-99) mg/dL Total Bilirubin (0.30-1.20) mg/dL AST (14-35) U/L ALT (10-49) U/L Alkaline Phosphatase (41-126) U/L Total Protein (6.2-8.2) g/dL Albumin (3.8-4.9) g/dL Albumin/Globulin Ratio (1.60-3.17) g/dL 11/21/21 11/21/21 11/21/21 Range/Units 02:23 06:02 06:02 WBC 12.09 H (4.50-10.00) X 10*3/uL RBC 3.18 L (4.40-5.60) X 10*6/uL Hgb 10.1 L (13.0-17.0) g/dL Hct 32.8 L (39.6-50.0) % MCV 103.1 H (80.0-97.0) fL MCHC 30.8 L (32.0-37.0) g/dL Immature Gran # 0.06 H (0.00-0.04) X 10*3/uL Neutrophils # 8.55 H (1.80-7.70) X 10*3/uL Monocytes # 1.20 H (0.20-1.00) X 10*3/uL Sodium 131 L (135-145) mmol/L Anion Gap 8.10 L (10.00-18.00) mmol/L BUN 27.9 H (9.0-27.0) mg/dL Creatinine 1.9 H (0.6-1.5) mg/dL Est GFR (CKD-EPI)AfAm 36.7 L (60.0-200.0) Est GFR (CKD-EPI)NonAf 31.7 L (60.0-200.0) Glucose 268 H (70-110) mg/dL POC Glucose (mg/dL) 243 H (75-99) mg/dL Total Bilirubin <0.20 L (0.30-1.20) mg/dL AST 79 H (14-35) U/L ALT 133 H (10-49) U/L Alkaline Phosphatase 131 H (41-126) U/L Total Protein 5.2 L (6.2-8.2) g/dL Albumin 2.5 L (3.8-4.9) g/dL Albumin/Globulin Ratio 0.93 L (1.60-3.17) g/dL 11/21/21 Range/Units 07:08 WBC (4.50-10.00) X 10*3/uL RBC (4.40-5.60) X 10*6/uL Hgb (13.0-17.0) g/dL Hct (39.6-50.0) % MCV (80.0-97.0) fL MCHC (32.0-37.0) g/dL Immature Gran # (0.00-0.04) X 10*3/uL Neutrophils # (1.80-7.70) X 10*3/uL Monocytes # (0.20-1.00) X 10*3/uL Sodium (135-145) mmol/L Anion Gap (10.00-18.00) mmol/L BUN (9.0-27.0) mg/dL Creatinine (0.6-1.5) mg/dL Est GFR (CKD-EPI)AfAm (60.0-200.0) Est GFR (CKD-EPI)NonAf (60.0-200.0) Glucose (70-110) mg/dL POC Glucose (mg/dL) 283 H (75-99) mg/dL Total Bilirubin (0.30-1.20) mg/dL AST (14-35) U/L ALT (10-49) U/L Alkaline Phosphatase (41-126) U/L Total Protein (6.2-8.2) g/dL Albumin (3.8-4.9) g/dL Albumin/Globulin Ratio (1.60-3.17) g/dL Microbiology - Last 24 Hours (Table) 11/18/21 17:15 Blood Culture - Preliminary Blood No Growth after 48 hours 11/18/21 17:00 Blood Culture - Preliminary Blood No Growth after 48 hours
[2021-11-21 11:51] LABS: Glucose,Whole Blood 301 mg/dL (75-99)
[2021-11-21 16:37] LABS: Glucose,Whole Blood 248 mg/dL (75-99)
[2021-11-21 20:24] LABS: Glucose,Whole Blood 237 mg/dL (75-99)
[2021-11-21] MEDS: ATORVASTATIN 40 MG TAB PO SCH (20:26)
[2021-11-21] MEDS: FAMOTIDINE 20 MG TAB PO SCH (20:26)
[2021-11-21] MEDS: DONEPEZIL 10 MG TAB PO SCH (20:26)
[2021-11-22 02:07] LABS: Glucose,Whole Blood 194 mg/dL (75-99)
[2021-11-22] MEDS: DEXTROSE 5%-0.9% NACL 1,000 ML IV SCH ×2 (06:00→16:46)
[2021-11-22 07:19] LABS: Glucose,Whole Blood 223 mg/dL (75-99)
[2021-11-22] MEDS: INSULIN ASPART (NovoLOG) 100 UNIT/ML VIAL SQ SCH ×4 (07:51→20:24)
[2021-11-22] MEDS: TAMSULOSIN 0.4 MG CAP.ER.24H PO SCH (07:52)
[2021-11-22] MEDS: LINAGLIPTIN 5 MG TABLET PO SCH (07:52)
[2021-11-22] MEDS: CYANOCOBALAMIN 500 MCG TAB PO SCH (07:52)
[2021-11-22] MEDS: FINASTERIDE 5 MG TAB PO SCH (07:52)
[2021-11-22] MEDS: METOPROLOL TARTRATE 12.5 MG TAB PO SCH ×2 (07:52→20:16)
[2021-11-22] MEDS: ESCITALOPRAM 10 MG TAB PO SCH (07:53)
[2021-11-22] MEDS: ASPIRIN 81 MG PO SCH (07:53)
[2021-11-22 09:19] LABS: Basophils # (A) 0.04 X 10*3/uL (0.00-0.10); Basophils % (A) 0.4 %; Eosinophils # (A) 0.35 X 10*3/uL (0.04-0.35); Eosinophils % (A) 3.3 %; HCT 31.7 % (39.6-50.0); Lymphocytes % (A) 23.8 %; MCH 32.5 pg (27.0-32.0); MCHC 31.5 g/dL (32.0-37.0); MCV 102.9 fL (80.0-97.0); Mean Platelet Volume 10.1 fL (9.5-12.2); Monocytes # (A) 1.05 X 10*3/uL (0.20-1.00); Neutrophils # (A) 6.51 X 10*3/uL (1.80-7.70); Neutrophils % (A) 61.9 %; Platelet Count 263 X 10*3/uL (140-440); RBC 3.08 X 10*6/uL (4.40-5.60); RDW 12.2 % (11.5-14.5); WBC 10.51 X 10*3/uL (4.50-10.00)
[2021-11-22 09:29] LABS: African American GFR (CKD) 34.9 (60.0-200.0); Albumin 2.4 g/dL (3.8-4.9); Albumin/Globulin Ratio 0.88 (1.60-3.17); Anion Gap 8.5 mmol/L (10.00-18.00); BUN/Creat Ratio 12.58 Ratio (12.00-20.00); Blood Urea Nitrogen 24.9 mg/dL (9.0-27.0); Calcium 8.6 mg/dL (8.7-10.3); Carbon Dioxide 21.9 mmol/L (20.0-27.5); Globulin 2.7 g/dL (1.6-3.3); Non-African American GFR(CKD) 30.1 (60.0-200.0); Potassium 4.9 mmol/L (3.5-5.5); Total Bilirubin 0.2 mg/dL (0.30-1.20); Total Protein 5.1 g/dL (6.2-8.2)
--- NOTE | 2021-11-22 10:49 | P.PN ---
Subjective Progress Note Date: 11/22/21 Patient still feels weak onstitutional: No acute distress, conversant, pleasant Eyes: Anicteric sclerae, moist conjunctiva, no lid-lag PERRLA ENMT: NC/AT Oropharynx clear, no erythema, exudates Neck: Supple, FROM, no masses, or JVD No carotid bruits No thyromegaly Lungs: Clear to auscultation Clear to percussion Normal respiratory effort, no accessory muscle use Cardiovascular: Heart regular in rate and rhythm, No murmurs, gallops, or rubs No peripheral edema Abdominal: Soft Nontender, no guarding, rebound or rigidity Abdomen moving with respiration Normoactive bowel sounds No hepatomegaly, No splenomegaly No palpable mass No abdominal wall hernia noted Skin: Normal temperature, tone, texture, turgor No induration No subcutaneous nodules No rash, lesions No ulcers Extremities: No digital cyanosis No clubbing Pedal pulses intact and symmetrical Radial pulses intact and symmetrical Normal gait and station No calf tenderness Psychiatric:Alert and oriented to person, place and time Appropriate affect Intact judgement Neuro: Muscles Strength 5/5 in all 4 extremities Sensation to light touch grossly present throughout Cranial nerves II-XII grossly intact No focal sensory deficits Acute renal failure on CTD will start the patient on IV hydration Creatinine slightly improving today UTI Continue patient on Rocephin Likely metabolic encephalopathy Diabetes we'll put the patient on sliding scale insulin Acute renal failure creatinine still above 2 we'll continue IV hydration overall stable Since creatinine is still 2 and patient still have a Aceves catheter we will consult nephrology Hopefully discharge in a day or 2 Objective - Vital Signs Vital signs: Vital Signs Temp 98.0 F 11/22/21 07:20 Pulse 68 11/22/21 07:20 Resp 16 11/22/21 07:20 BP 147/81 11/22/21 07:20 Pulse Ox 97 11/22/21 07:20 Intake & Output 11/21/21 11/22/21 11/22/21 18:59 06:59 18:59 Intake Total 650 Output Total 420 1000 Balance 230 -1000 Intake: Intake, IV Titration 650 Amount Dextrose 5%-0.9% NaCl 1, 600 000 ml @ 75 mls/hr IV . [id number] [facility] Rx#:[id number] cefTRIAXone 2 gm In 50 Sodium Chloride 0.9% 50 ml @ 100 mls/hr IVPB Q24HR [facility] Rx#:[id number] Output: Urine 1000 Stool 420 Other: Voiding Method Indwelling Catheter Indwelling Catheter - Labs CBC & Chem 7: 11/22/21 05:59 11/22/21 05:59 Labs: Abnormal Lab Results - Last 24 Hours (Table) 11/21/21 11/21/21 11/21/21 Range/Units 11:50 16:36 20:21 WBC (4.50-10.00) X 10*3/uL RBC (4.40-5.60) X 10*6/uL Hgb (13.0-17.0) g/dL Hct (39.6-50.0) % MCV (80.0-97.0) fL MCH (27.0-32.0) pg MCHC (32.0-37.0) g/dL Immature Gran # (0.00-0.04) X 10*3/uL Monocytes # (0.20-1.00) X 10*3/uL Anion Gap (10.00-18.00) mmol/L Creatinine (0.6-1.5) mg/dL Est GFR (CKD-EPI)AfAm (60.0-200.0) Est GFR (CKD-EPI)NonAf (60.0-200.0) Glucose (70-110) mg/dL POC Glucose (mg/dL) 301 H 248 H 237 H (75-99) mg/dL Calcium (8.7-10.3) mg/dL Total Bilirubin (0.30-1.20) mg/dL AST (14-35) U/L ALT (10-49) U/L Total Protein (6.2-8.2) g/dL Albumin (3.8-4.9) g/dL Albumin/Globulin Ratio (1.60-3.17) g/dL 11/22/21 11/22/21 11/22/21 Range/Units 02:05 05:59 05:59 WBC 10.51 H (4.50-10.00) X 10*3/uL RBC 3.08 L (4.40-5.60) X 10*6/uL Hgb 10.0 L (13.0-17.0) g/dL Hct 31.7 L (39.6-50.0) % MCV 102.9 H (80.0-97.0) fL MCH 32.5 H (27.0-32.0) pg MCHC 31.5 L (32.0-37.0) g/dL Immature Gran # 0.06 H (0.00-0.04) X 10*3/uL Monocytes # 1.05 H (0.20-1.00) X 10*3/uL Anion Gap 8.50 L (10.00-18.00) mmol/L Creatinine 2.0 H (0.6-1.5) mg/dL Est GFR (CKD-EPI)AfAm 34.9 L (60.0-200.0) Est GFR (CKD-EPI)NonAf 30.1 L (60.0-200.0) Glucose 196 H (70-110) mg/dL POC Glucose (mg/dL) 194 H (75-99) mg/dL Calcium 8.6 L (8.7-10.3) mg/dL Total Bilirubin 0.20 L (0.30-1.20) mg/dL AST 56 H (14-35) U/L ALT 117 H (10-49) U/L Total Protein 5.1 L (6.2-8.2) g/dL Albumin 2.4 L (3.8-4.9) g/dL Albumin/Globulin Ratio 0.88 L (1.60-3.17) g/dL 11/22/21 Range/Units 07:18 WBC (4.50-10.00) X 10*3/uL RBC (4.40-5.60) X 10*6/uL Hgb (13.0-17.0) g/dL Hct (39.6-50.0) % MCV (80.0-97.0) fL MCH (27.0-32.0) pg MCHC (32.0-37.0) g/dL Immature Gran # (0.00-0.04) X 10*3/uL Monocytes # (0.20-1.00) X 10*3/uL Anion Gap (10.00-18.00) mmol/L Creatinine (0.6-1.5) mg/dL Est GFR (CKD-EPI)AfAm (60.0-200.0) Est GFR (CKD-EPI)NonAf (60.0-200.0) Glucose (70-110) mg/dL POC Glucose (mg/dL) 223 H (75-99) mg/dL Calcium (8.7-10.3) mg/dL Total Bilirubin (0.30-1.20) mg/dL AST (14-35) U/L ALT (10-49) U/L Total Protein (6.2-8.2) g/dL Albumin (3.8-4.9) g/dL Albumin/Globulin Ratio (1.60-3.17) g/dL Microbiology - Last 24 Hours (Table) 11/18/21 17:15 Blood Culture - Preliminary Blood No Growth after 72 hours 11/18/21 17:00 Blood Culture - Preliminary Blood No Growth after 72 hours
--- NOTE | 2021-11-22 11:07 | P.NPCON ---
History of Present Illness - Reason for Consult acute renal failure, chronic renal failure - History of Present Illness Reason for consultation: Acute kidney injury on chronic kidney disease History of present illness: Patient is a 86-year-old male seen in renal consultation for acute kidney injury on chronic kidney disease. Patient has chronic kidney disease stage III with baseline creatinine in the range of 1.2-1.4. Creatinine on admission on 11/18/2021 was 3.72 and is now stable at 2.0 today. Patient presented to the hospital with generalized weakness as well as diarrhea which is going on for the last 1-2 weeks. Patient states he was also being treated for UTI outpatient. Patient states recently was admitted at [facility] after he sustained a fall. Patient states during that admission he also required a Aceves catheter. Currently has a Aceves catheter in place as well. He is nonoliguric. Denies chest pain or shortness of breath. No further vomiting or diarrhea. Blood pressure stable. He does have history of diabetes and is maintained on oral medications. He is also on Flomax as well as finasteride. Patient states he does follow with urology outpatient. He denies use of nonsteroidals. No hematuria. Vital signs are stable. General: The patient appeared well nourished and normally developed. HEENT: Head exam is unremarkable. LUNGS: Breath sounds decreased. HEART: Rate and Rhythm are regular. ABDOMEN: Soft, no distention. EXTREMITITES: No edema. Past Medical History Past Medical History: Coronary Artery Disease (CAD), Cancer, CVA/TIA, Diabetes Mellitus, Hyperlipidemia, Hypertension, Myocardial Infarction ([place]), Prostate Disorder, Sleep Apnea/CPAP/BIPAP, Vascular Disorder Additional Past Medical History / Comment(s): TIA in 2015, MICHAEL without device, CKD stage III, chronic low back pain, migraines in past, vertigo, balance issues, falls, BPH, benign colon polyp, diverticular disease, vascular disease with surgery-AAA repair and R leg bypass, skin cancer with removal. bladder cancer Last Myocardial Infarction Date:: 04/17/17 History of Any Multi-Drug Resistant Organisms: None Reported Past Surgical History: Adenoidectomy, Heart Catheterization With Stent, Tonsillectomy Additional Past Surgical History / Comment(s): 12/07/18 endovascular repair/stent graft infra renal aorta, R leg bypass surgery after AAA repair at [facility], colonoscopy/polypectomy, basal cell cancer removed from forehead, bilateral cataract removals/lens implants, cystoscopy -biopsy for cancer Past Anesthesia/Blood Transfusion Reactions: Motion Sickness Additional Past Anesthesia/Blood Transfusion Reaction / Comment(s): . Date of Last Stent Placement:: 03/2017 Past Psychological History: Anxiety, Depression Additional Psychological History / Comment(s): . Smoking Status: Former smoker Past Alcohol Use History: None Reported Additional Past Alcohol Use History / Comment(s): Pt started smoking in 1957 and quit in 1986. smoked 1ppd Past Drug Use History: None Reported - Past Family History Brother(s) Family Medical History: No Reported History Sister(s) Family Medical History: No Reported History Son(s) Family Medical History: No Reported History Father Family Medical History: Diabetes Mellitus, Myocardial Infarction ([place]), Vascular Disorder Additional Family Medical History / Comment(s): Father of a [place] at the age of 76 or 77yrs. He was an alcoholic. Mother Family Medical History: Deep Vein Thrombosis (DVT), Pulmonary Embolus Additional Family Medical History / Comment(s): Mother at 42 yrs of age of "blood clot" in the lung and it went to the heart. Medications and Allergies Home Medications Medication Instructions Recorded Confirmed Type glipiZIDE [Glucotrol] 5 mg PO BID 10/30/14 11/18/21 History Cyanocobalamin (Vitamin B-12) 5,000 mcg PO DAILY 04/17/17 11/18/21 History [Vitamin B-12] Aspirin 81 mg PO DAILY 04/20/17 11/18/21 Rx Atorvastatin [Lipitor] 40 mg PO 11/04/18 11/18/21 History Finasteride [Proscar] 5 mg PO DAILY 12/01/18 11/18/21 History sitaGLIPtin PHOSPHATE [Januvia] 100 mg PO DAILY 01/16/21 11/18/21 History Cefdinir 300 mg PO BID 11/18/21 11/18/21 History Donepezil HCl [Aricept] 10 mg PO HS 11/18/21 11/18/21 History Escitalopram [Lexapro] 10 mg PO DAILY 11/18/21 11/18/21 History Famotidine 40 mg PO HS 11/18/21 11/18/21 History Meclizine [Antivert] 25 mg PO TID PRN 11/18/21 11/18/21 History Metoprolol Tartrate [Lopressor] 12.5 mg PO BID 11/18/21 11/18/21 History Tamsulosin HCl [Flomax] 0.8 mg PO DAILY 11/18/21 11/18/21 History Allergies Allergy/AdvReac Type Severity Reaction Status Date / Time No Known Allergies Allergy Verified 11/18/21 15:52 Physical Exam Vitals: Vital Signs Temp Pulse Resp BP Pulse Ox 11/22/21 07:20 98.0 F 68 16 147/81 97 11/22/21 02:11 98.0 F 66 15 144/78 97 11/21/21 20:15 98 F 63 16 153/80 99 11/21/21 14:00 97.5 F L 63 18 105/66 99 Intake and Output 11/21/21 11/22/21 11/22/21 22:59 06:59 14:59 Output Total 1000 Balance -1000 Output: Urine 1000 Other: Voiding Method Indwelling Catheter Results - Lab Results Most recent lab results Calcium 8.6 mg/dL (8.7-10.3) L 11/22/21 05:59 Magnesium 1.8 mg/dL (1.6-2.3) 11/18/21 Unknown 11/22/21 05:59 11/22/21 05:59 Assessment and Plan Plan: Assessment: 1. Acute kidney injury mostly prerenal secondary to hypovolemia from diarrhea, improved with IV hydration. Creatinine was 3.7-1 admission and is 2.0 today. 2. Chronic kidney disease stage IIIa with baseline creatinine near 1.2-1.4 secondary to nephrosclerosis. 3. Diabetes mellitus. 4. Hypertension with chronic kidney disease. Stable. 5. Urinary retention. On Flomax. Plan: Maintain IV fluids. Consult urology for urinary retention. Check renal ultrasound. Avoid nephrotoxins. Patient will need to follow-up outpatient to establish CKD care. Thank you for the consultation. I will continue to follow the patient is due during her hospital stay.
[2021-11-22 11:41] LABS: Glucose,Whole Blood 234 mg/dL (75-99)
--- NOTE | 2021-11-22 11:48 | P.GSCN ---
History of Present Illness Consult date: 11/22/21 History of present illness: 86-year-old gentleman who was brought in the hospital because of weakness, renal insufficiency, urinary tract infection. Apparently he has been treated for urinary tract infection prior to the hospitalization. He comes in with dehydration diarrhea general overall feeling poorly and incomplete bladder emptying. The history is obtained from the patient but it is somewhat confusing as he is quite unsure of the information he is providing me. From what I can tell he had bladder cancer treated by in the years past. He subsequent is been followed by . He states that after his cystoscopy 6 months ago he has had problems urinating. He has been wearing a male depends continuously since then best I can tell. He states that he feels the diaper regularly. I asked him why he doesn't use the toilet instead of wearing a diaper and he states that because he is lazy and he voids frequently. He states that his urine stream is slow. He states that he doesn't feel that he empties his bladder. He had cystoscopy recently and there is no evidence of tumor but he still struggles to urinate. He was told by in the past that his prostate was fine. By history it sounds as if he was on finasteride and Flomax. He did not mention to Brooke about his voiding difficulties as he felt that the cystoscopy 6 months ago was the cause of them. Review of Systems All systems: negative - Constitutional Denies fever, Denies weight loss - EENT Eyes: denies blurred vision Ears, nose, mouth and throat: Denies dysphagia - Cardiovascular Denies chest pain, Denies shortness of breath - Respiratory Denies cough, Denies 7 - Gastrointestinal Reports as per HPI - Genitourinary Denies dysuria, Denies hematuria - Integumentary Denies rash, Denies unusual bruising - Neurological Denies headaches, Denies syncope - Hematologic/Lymphatic Denies easy bleeding, Denies easy bruising Past Medical History Past Medical History: Coronary Artery Disease (CAD), Cancer, CVA/TIA, Diabetes Mellitus, Hyperlipidemia, Hypertension, Myocardial Infarction ([place]), Prostate Disorder, Sleep Apnea/CPAP/BIPAP, Vascular Disorder Additional Past Medical History / Comment(s): TIA in 2015, MICHAEL without device, CKD stage III, chronic low back pain, migraines in past, vertigo, balance issues, falls, BPH, benign colon polyp, diverticular disease, vascular disease with surgery-AAA repair and R leg bypass, skin cancer with removal. bladder cancer Last Myocardial Infarction Date:: 04/17/17 History of Any Multi-Drug Resistant Organisms: None Reported Past Surgical History: Adenoidectomy, Heart Catheterization With Stent, Tonsillectomy Additional Past Surgical History / Comment(s): 12/07/18 endovascular repair/stent graft infra renal aorta, R leg bypass surgery after AAA repair at [facility], colonoscopy/polypectomy, basal cell cancer removed from forehead, bilateral cataract removals/lens implants, cystoscopy -biopsy for cancer Past Anesthesia/Blood Transfusion Reactions: Motion Sickness Additional Past Anesthesia/Blood Transfusion Reaction / Comm: . Date of Last Stent Placement:: 03/2017 Past Psychological History: Anxiety, Depression Additional Psychological History / Comment(s): . Smoking Status: Former smoker Past Alcohol Use History: None Reported Additional Past Alcohol Use History / Comment(s): Pt started smoking in 1957 and quit in 1986. smoked 1ppd Past Drug Use History: None Reported - Past Family History Brother(s) Family Medical History: No Reported History Sister(s) Family Medical History: No Reported History Son(s) Family Medical History: No Reported History Father Family Medical History: Diabetes Mellitus, Myocardial Infarction ([place]), Vascular Disorder Additional Family Medical History / Comment(s): Father of a [place] at the age of 76 or 77yrs. He was an alcoholic. Mother Family Medical History: Deep Vein Thrombosis (DVT), Pulmonary Embolus Additional Family Medical History / Comment(s): Mother at 42 yrs of age of "blood clot" in the lung and it went to the heart. Medications and Allergies Home Medications Medication Instructions Recorded Confirmed Type glipiZIDE [Glucotrol] 5 mg PO BID 10/30/14 11/18/21 History Cyanocobalamin (Vitamin B-12) 5,000 mcg PO DAILY 04/17/17 11/18/21 History [Vitamin B-12] Aspirin 81 mg PO DAILY 04/20/17 11/18/21 Rx Atorvastatin [Lipitor] 40 mg PO HS 11/04/18 11/18/21 History Finasteride [Proscar] 5 mg PO DAILY 12/01/18 11/18/21 History sitaGLIPtin PHOSPHATE [Januvia] 100 mg PO DAILY 01/16/21 11/18/21 History Cefdinir 300 mg PO BID 11/18/21 11/18/21 History Donepezil HCl [Aricept] 10 mg PO HS 11/18/21 11/18/21 History Escitalopram [Lexapro] 10 mg PO DAILY 11/18/21 11/18/21 History Famotidine 40 mg PO HS 11/18/21 11/18/21 History Meclizine [Antivert] 25 mg PO TID PRN 11/18/21 11/18/21 History Metoprolol Tartrate [Lopressor] 12.5 mg PO BID 11/18/21 11/18/21 History Tamsulosin HCl [Flomax] 0.8 mg PO DAILY 11/18/21 11/18/21 History Allergies Allergy/AdvReac Type Severity Reaction Status Date / Time No Known Allergies Allergy Verified 11/18/21 15:52 Surgical - Exam Vital Signs Temp Pulse Resp BP Pulse Ox 97.0 F L 75 20 123/75 98 11/18/21 13:51 11/18/21 13:51 11/18/21 13:51 11/18/21 13:51 11/18/21 13:51 - General well developed, well nourished, no distress - Eyes PERRL - ENT no hearing loss - Neck trachea midline - Respiratory normal expansion, normal respiratory effort - Cardiovascular Rhythm: regular - Abdomen Abdomen: soft, non tender - Genitourinary Indwelling catheter, circumcised phallus, normally descended testes. 40 g enlarged benign prostate - Integumentary no rash, no growths - Neurologic normal sensation - Musculoskeletal normal posture - Psychiatric oriented to time, oriented to person, oriented to place, speech is normal, memory intact Results - Labs 11/22/21 05:59 11/22/21 05:59 Abnormal Lab Results - Last 24 Hours (Table) 11/21/21 11/21/21 11/21/21 Range/Units 11:50 16:36 20:21 WBC (4.50-10.00) X 10*3/uL RBC (4.40-5.60) X 10*6/uL Hgb (13.0-17.0) g/dL Hct (39.6-50.0) % MCV (80.0-97.0) fL MCH (27.0-32.0) pg MCHC (32.0-37.0) g/dL Immature Gran # (0.00-0.04) X 10*3/uL Monocytes # (0.20-1.00) X 10*3/uL Anion Gap (10.00-18.00) mmol/L Creatinine (0.6-1.5) mg/dL Est GFR (CKD-EPI)AfAm (60.0-200.0) Est GFR (CKD-EPI)NonAf (60.0-200.0) Glucose (70-110) mg/dL POC Glucose (mg/dL) 301 H 248 H 237 H (75-99) mg/dL Calcium (8.7-10.3) mg/dL Total Bilirubin (0.30-1.20) mg/dL AST (14-35) U/L ALT (10-49) U/L Total Protein (6.2-8.2) g/dL Albumin (3.8-4.9) g/dL Albumin/Globulin Ratio (1.60-3.17) g/dL 11/22/21 11/22/21 11/22/21 Range/Units 02:05 05:59 05:59 WBC 10.51 H (4.50-10.00) X 10*3/uL RBC 3.08 L (4.40-5.60) X 10*6/uL Hgb 10.0 L (13.0-17.0) g/dL Hct 31.7 L (39.6-50.0) % MCV 102.9 H (80.0-97.0) fL MCH 32.5 H (27.0-32.0) pg MCHC 31.5 L (32.0-37.0) g/dL Immature Gran # 0.06 H (0.00-0.04) X 10*3/uL Monocytes # 1.05 H (0.20-1.00) X 10*3/uL Anion Gap 8.50 L (10.00-18.00) mmol/L Creatinine 2.0 H (0.6-1.5) mg/dL Est GFR (CKD-EPI)AfAm 34.9 L (60.0-200.0) Est GFR (CKD-EPI)NonAf 30.1 L (60.0-200.0) Glucose 196 H (70-110) mg/dL POC Glucose (mg/dL) 194 H (75-99) mg/dL Calcium 8.6 L (8.7-10.3) mg/dL Total Bilirubin 0.20 L (0.30-1.20) mg/dL AST 56 H (14-35) U/L ALT 117 H (10-49) U/L Total Protein 5.1 L (6.2-8.2) g/dL Albumin 2.4 L (3.8-4.9) g/dL Albumin/Globulin Ratio 0.88 L (1.60-3.17) g/dL 11/22/21 Range/Units 07:18 WBC (4.50-10.00) X 10*3/uL RBC (4.40-5.60) X 10*6/uL Hgb (13.0-17.0) g/dL Hct (39.6-50.0) % MCV (80.0-97.0) fL MCH (27.0-32.0) pg MCHC (32.0-37.0) g/dL Immature Gran # (0.00-0.04) X 10*3/uL Monocytes # (0.20-1.00) X 10*3/uL Anion Gap (10.00-18.00) mmol/L Creatinine (0.6-1.5) mg/dL Est GFR (CKD-EPI)AfAm (60.0-200.0) Est GFR (CKD-EPI)NonAf (60.0-200.0) Glucose (70-110) mg/dL POC Glucose (mg/dL) 223 H (75-99) mg/dL Calcium (8.7-10.3) mg/dL Total Bilirubin (0.30-1.20) mg/dL AST (14-35) U/L ALT (10-49) U/L Total Protein (6.2-8.2) g/dL Albumin (3.8-4.9) g/dL Albumin/Globulin Ratio (1.60-3.17) g/dL Microbiology - Last 24 Hours (Table) 11/18/21 17:15 Blood Culture - Preliminary Blood No Growth after 72 hours 11/18/21 17:00 Blood Culture - Preliminary Blood No Growth after 72 hours Diabetes panel 11/22/21 Range/Units 05:59 Sodium 136 (135-145) mmol/L Potassium 4.9 (3.5-5.5) mmol/L Chloride 105 (96-109) mmol/L Carbon Dioxide 21.9 (20.0-27.5) mmol/L BUN 24.9 (9.0-27.0) mg/dL Creatinine 2.0 H (0.6-1.5) mg/dL Glucose 196 H (70-110) mg/dL Calcium 8.6 L (8.7-10.3) mg/dL AST 56 H (14-35) U/L ALT 117 H (10-49) U/L Alkaline Phosphatase 121 (41-126) U/L Total Protein 5.1 L (6.2-8.2) g/dL Albumin 2.4 L (3.8-4.9) g/dL Calcium panel 11/22/21 Range/Units 05:59 Calcium 8.6 L (8.7-10.3) mg/dL Albumin 2.4 L (3.8-4.9) g/dL Pituitary panel 11/22/21 Range/Units 05:59 Sodium 136 (135-145) mmol/L Potassium 4.9 (3.5-5.5) mmol/L Chloride 105 (96-109) mmol/L Carbon Dioxide 21.9 (20.0-27.5) mmol/L BUN 24.9 (9.0-27.0) mg/dL Creatinine 2.0 H (0.6-1.5) mg/dL Glucose 196 H (70-110) mg/dL Calcium 8.6 L (8.7-10.3) mg/dL Adrenal panel 11/22/21 Range/Units 05:59 Sodium 136 (135-145) mmol/L Potassium 4.9 (3.5-5.5) mmol/L Chloride 105 (96-109) mmol/L Carbon Dioxide 21.9 (20.0-27.5) mmol/L BUN 24.9 (9.0-27.0) mg/dL Creatinine 2.0 H (0.6-1.5) mg/dL Glucose 196 H (70-110) mg/dL Calcium 8.6 L (8.7-10.3) mg/dL Total Bilirubin 0.20 L (0.30-1.20) mg/dL AST 56 H (14-35) U/L ALT 117 H (10-49) U/L Alkaline Phosphatase 121 (41-126) U/L Total Protein 5.1 L (6.2-8.2) g/dL Albumin 2.4 L (3.8-4.9) g/dL Assessment and Plan Assessment: Impression: Dehydration, urinary tract infection, renal insufficiency chronic. BPH, symptomatic. History of bladder cancer in remission. Recommendation: Given this history of difficulties with urination and the fact that he wears a diaper it sounds like he probably is going to need a TURP since he is already on maximum Flomax and finasteride I would leave indwelling catheter. I'll review his chart in the office . The patient is requested that I assume his care as I also care for his . I think this is a motive for this decision. I will contact him for further evaluation and treatment.
--- NOTE | 2021-11-22 12:02 | US ---
EXAMINATION TYPE: US kidneys/renal and bladder DATE OF EXAM: 11/22/2021 COMPARISON: CT 10/15/2020, US 12/22/2017 CLINICAL HISTORY: CELE. HX of bladder CA and treatment, indwelling bladder catheter EXAM MEASUREMENTS: Right Kidney: 10.5 x 6.5 x 5.6 cm Left Kidney: 9.2 x 5.4 x 5.3 cm Post Void Residual Volume: not assessed on inpatient Right Kidney: mild to moderate hydronephrosis; lobular superior cortex with hyperechoic wedge shaped indentation may be scarring seen on CT. Left Kidney: moderate hydronephrosis is noted; lateral cortical cyst is seen = 0.9x 0.5 x 0.5cm; ext racapsular crescent shaped hypoechoic are is noted mid lower pole area and suggests sonographic "swea t sign" for renal failure. Bladder: limitedly seen with indwelling bladder catheter noted No nephrolithiasis is seen. IMPRESSION: 1. Moderate, left greater than right, hydronephrosis. 2. Aceves catheter balloon within a partially distended bladder. 3. Cortical thinning and cyst of the left kidney.
[2021-11-22 16:47] LABS: Glucose,Whole Blood 274 mg/dL (75-99)
[2021-11-22] MEDS: FAMOTIDINE 20 MG TAB PO SCH (20:16)
[2021-11-22] MEDS: ATORVASTATIN 40 MG TAB PO SCH (20:16)
[2021-11-22] MEDS: DONEPEZIL 10 MG TAB PO SCH (20:16)
[2021-11-22 20:23] LABS: Glucose,Whole Blood 266 mg/dL (75-99)
[2021-11-23 02:33] LABS: Glucose,Whole Blood 178 mg/dL (75-99)
[2021-11-23 07:08] LABS: Glucose,Whole Blood 166 mg/dL (75-99)
[2021-11-23] MEDS: CYANOCOBALAMIN 500 MCG TAB PO SCH (07:24)
[2021-11-23] MEDS: TAMSULOSIN 0.4 MG CAP.ER.24H PO SCH (07:24)
[2021-11-23] MEDS: METOPROLOL TARTRATE 12.5 MG TAB PO SCH (07:24)
[2021-11-23] MEDS: FINASTERIDE 5 MG TAB PO SCH (07:24)
[2021-11-23] MEDS: ESCITALOPRAM 10 MG TAB PO SCH (07:24)
[2021-11-23] MEDS: LINAGLIPTIN 5 MG TABLET PO SCH (07:24)
[2021-11-23] MEDS: INSULIN ASPART (NovoLOG) 100 UNIT/ML VIAL SQ SCH ×2 (07:24→12:34)
[2021-11-23] MEDS: ASPIRIN 81 MG PO SCH (07:24)
[2021-11-23] MEDS: DEXTROSE 5%-0.9% NACL 1,000 ML IV SCH (07:25)
[2021-11-23 07:29] VITALS: BP 153/90; PULSE 72; RESP 16; TEMP 97.8
[2021-11-23 09:03] LABS: Basophils # (A) 0.06 X 10*3/uL (0.00-0.10); Basophils % (A) 0.5 %; Eosinophils # (A) 0.35 X 10*3/uL (0.04-0.35); Eosinophils % (A) 2.8 %; HGB 10.2 g/dL (13.0-17.0); Lymphocytes # (A) 2.76 X 10*3/uL (0.90-5.00); Lymphocytes % (A) 21.8 %; MCH 32.9 pg (27.0-32.0); MCHC 31.9 g/dL (32.0-37.0); MCV 103.2 fL (80.0-97.0); Mean Platelet Volume 9.8 fL (9.5-12.2); Monocytes # (A) 1.23 X 10*3/uL (0.20-1.00); Monocytes % (A) 9.7 %; Neutrophils # (A) 8.17 X 10*3/uL (1.80-7.70); Neutrophils % (A) 64.6 %; Platelet Count 275 X 10*3/uL (140-440); RDW 12.2 % (11.5-14.5); WBC 12.65 X 10*3/uL (4.50-10.00)
[2021-11-23 09:17] LABS: ALT 116 U/L (10-49); AST 54 U/L (14-35); African American GFR (CKD) 36.7 (60.0-200.0); Albumin 2.5 g/dL (3.8-4.9); Albumin/Globulin Ratio 0.93 (1.60-3.17); Alkaline Phosphatase 134 U/L (41-126); BUN/Creat Ratio 13.16 Ratio (12.00-20.00); Calcium 8.7 mg/dL (8.7-10.3); Carbon Dioxide 22.8 mmol/L (20.0-27.5); Chloride 104 mmol/L (96-109); Globulin 2.7 g/dL (1.6-3.3); Glucose 178 mg/dL (70-110); Magnesium 1.4 mg/dL (1.5-2.4); Non-African American GFR(CKD) 31.7 (60.0-200.0); Sodium 136 mmol/L (135-145); Total Bilirubin <0.20 mg/dL (0.30-1.20); Total Protein 5.2 g/dL (6.2-8.2)
--- NOTE | 2021-11-23 09:49 | P.PN ---
Subjective Patient seen in follow-up for acute kidney injury and chronic disease. Renal function stable. Nonoliguric. Has a Aceves catheter. Receiving IV fluids. No vomiting or diarrhea. Oral intake.. Vital signs are stable. General: The patient appeared well nourished and normally developed. HEENT: Head exam is unremarkable. LUNGS: Breath sounds decreased. HEART: Rate and Rhythm are regular. ABDOMEN: Soft, no distention. EXTREMITITES: No edema. Objective - Vital Signs Vital signs: Vital Signs Temp 97.8 F 11/23/21 07:28 Pulse 72 11/23/21 07:28 Resp 16 11/23/21 07:28 BP 153/90 11/23/21 07:28 Pulse Ox 96 11/23/21 07:28 Intake & Output 11/22/21 11/23/21 11/23/21 18:59 06:59 18:59 Intake Total 600 900 Output Total 2500 Balance 600 -1600 Intake: Intake, IV Titration 600 900 Amount Dextrose 5%-0.9% NaCl 1, 600 900 000 ml @ 75 mls/hr IV . [id number] [facility] Rx#:[id number] Output: Urine 2500 Other: Voiding Method Indwelling Catheter - Labs CBC & Chem 7: 11/23/21 05:12 11/23/21 05:12 Labs: Abnormal Lab Results - Last 24 Hours (Table) 11/22/21 11/22/21 11/22/21 Range/Units 11:40 16:46 20:21 WBC (4.50-10.00) X 10*3/uL RBC (4.40-5.60) X 10*6/uL Hgb (13.0-17.0) g/dL Hct (39.6-50.0) % MCV (80.0-97.0) fL MCH (27.0-32.0) pg MCHC (32.0-37.0) g/dL Immature Gran # (0.00-0.04) X 10*3/uL Neutrophils # (1.80-7.70) X 10*3/uL Monocytes # (0.20-1.00) X 10*3/uL Anion Gap (10.00-18.00) mmol/L Creatinine (0.6-1.5) mg/dL Est GFR (CKD-EPI)AfAm (60.0-200.0) Est GFR (CKD-EPI)NonAf (60.0-200.0) Glucose (70-110) mg/dL POC Glucose (mg/dL) 234 H 274 H 266 H (75-99) mg/dL Magnesium (1.5-2.4) mg/dL Total Bilirubin (0.30-1.20) mg/dL AST (14-35) U/L ALT (10-49) U/L Alkaline Phosphatase (41-126) U/L Total Protein (6.2-8.2) g/dL Albumin (3.8-4.9) g/dL Albumin/Globulin Ratio (1.60-3.17) g/dL 11/23/21 11/23/21 11/23/21 Range/Units 02:31 05:12 05:12 WBC 12.65 H (4.50-10.00) X 10*3/uL RBC 3.10 L (4.40-5.60) X 10*6/uL Hgb 10.2 L (13.0-17.0) g/dL Hct 32.0 L (39.6-50.0) % MCV 103.2 H (80.0-97.0) fL MCH 32.9 H (27.0-32.0) pg MCHC 31.9 L (32.0-37.0) g/dL Immature Gran # 0.08 H (0.00-0.04) X 10*3/uL Neutrophils # 8.17 H (1.80-7.70) X 10*3/uL Monocytes # 1.23 H (0.20-1.00) X 10*3/uL Anion Gap 9.20 L (10.00-18.00) mmol/L Creatinine 1.9 H (0.6-1.5) mg/dL Est GFR (CKD-EPI)AfAm 36.7 L (60.0-200.0) Est GFR (CKD-EPI)NonAf 31.7 L (60.0-200.0) Glucose 178 H (70-110) mg/dL POC Glucose (mg/dL) 178 H (75-99) mg/dL Magnesium 1.4 L (1.5-2.4) mg/dL Total Bilirubin <0.20 L (0.30-1.20) mg/dL AST 54 H (14-35) U/L ALT 116 H (10-49) U/L Alkaline Phosphatase 134 H (41-126) U/L Total Protein 5.2 L (6.2-8.2) g/dL Albumin 2.5 L (3.8-4.9) g/dL Albumin/Globulin Ratio 0.93 L (1.60-3.17) g/dL 11/23/21 Range/Units 07:07 WBC (4.50-10.00) X 10*3/uL RBC (4.40-5.60) X 10*6/uL Hgb (13.0-17.0) g/dL Hct (39.6-50.0) % MCV (80.0-97.0) fL MCH (27.0-32.0) pg MCHC (32.0-37.0) g/dL Immature Gran # (0.00-0.04) X 10*3/uL Neutrophils # (1.80-7.70) X 10*3/uL Monocytes # (0.20-1.00) X 10*3/uL Anion Gap (10.00-18.00) mmol/L Creatinine (0.6-1.5) mg/dL Est GFR (CKD-EPI)AfAm (60.0-200.0) Est GFR (CKD-EPI)NonAf (60.0-200.0) Glucose (70-110) mg/dL POC Glucose (mg/dL) 166 H (75-99) mg/dL Magnesium (1.5-2.4) mg/dL Total Bilirubin (0.30-1.20) mg/dL AST (14-35) U/L ALT (10-49) U/L Alkaline Phosphatase (41-126) U/L Total Protein (6.2-8.2) g/dL Albumin (3.8-4.9) g/dL Albumin/Globulin Ratio (1.60-3.17) g/dL Microbiology - Last 24 Hours (Table) 11/18/21 17:15 Blood Culture - Preliminary Blood No Growth after 96 hours 11/18/21 17:00 Blood Culture - Preliminary Blood No Growth after 96 hours Assessment and Plan Plan: Assessment: 1. Acute kidney injury mostly prerenal secondary to hypovolemia from diarrhea, improved with IV hydration. Creatinine was 3.72 on admission and is 1.9 today. 2. Chronic kidney disease stage IIIa with baseline creatinine near 1.2-1.4 secondary to nephrosclerosis. 3. Diabetes mellitus. 4. Hypertension with chronic kidney disease. Stable. 5. Urinary retention. On Flomax. Urology following. Also noted to have bilateral hydronephrosis. Aceves catheter to be maintained per urology. Plan: Hep-Lock IV fluids. Encourage oral intake. Avoid nephrotoxins. Patient will need to follow-up outpatient to establish CKD care.
[2021-11-23] MEDS: MAGNESIUM SULFATE-D5W PMX 1 GM in DEXTROSE/WATER 1 100ML.BAG IVPB SCH ×2 (10:25→11:48)
--- NOTE | 2021-11-23 11:42 | P.DS ---
<Jamie Ty - Last Filed: 11/23/21 15:53> Providers Expected date of discharge: 11/23/21 Hospital Course: Discharge Diagnosis: UTI, patient received 5 day course of IV antibiotics with Rocephin and being discharged home on Cefdinir 300 mg every 12 hours for 5 additional days totaling 10 days of antibiotic therapy. BPH with Urinary retention, Baumann catheter placed into remain in place until follow-up with urologist Acute kidney injury on stage III chronic kidney disease, improved patient to follow-up with nephrology on an outpatient basis for continued long-term monitoring of CKD Transaminitis, Possibly secondary to decreased oral intake and dehydration, patient to have follow-up CMP for continued monitoring Anemia of chronic disease, hemoglobin stable Diabetes mellitus Hypertension Hyperlipidemia Obstructive sleep apnea, CPAP dependent Other chronic medical conditions include history of CAD, abdominal aortic aneurysm with repair, vascular disease with right leg bypass, previous TIA, and history of bladder cancer Hospital Course: Patient is a very pleasant 86-year-old male with a past medical history of CAD, abdominal aortic aneurysm with repair, vascular disease with right leg bypass, hypertension, hyperlipidemia, diabetes mellitus, obstructive sleep apnea CPAP dependent, TIA, stage III CKD, BPH, and bladder cancer. He presented to the emergency department with a chief complaint of generalized weakness, diarrhea, and recently diagnosed UTI. Patient was seen and evaluated in the emergency department urinalysis positive for blood and infection with greater than 182 WBC s. He was found to have leukocytosis, elevated lactic acid at 3.2, hyponatremia with sodium 133, hyperkalemia with potassium of 5.4, elevated liver enzymes with AST of 112 and ALT of 50, and in acute kidney injury with BUN of 46, creatinine 3.72, and GFR 14 with baseline creatinine of 1.4. A Baumann catheter was placed secondary to urinary retention along with acute kidney injury. Patient was adm itted under our services for acute kidney injury and treatment of UTI. Urology and nephrology were consulted. Urology evaluating patient recommending patient continue Flomax and finasteride and leave indwelling catheter in place. Urology reporting they will continue to follow with patient in the office for further evaluation and likely recommended TURP. Patient was seen and treated by nephrology, acute kidney injury improving and nephrology recommending patient follow-up on outpatient basis in the office for long-term monitoring/management of chronic kidney disease. Patient is medically stable at this time. He received 5 day course of IV antibiotics with Rocephin and being discharged home on Cefdinir 300 mg every 12 hours for 5 additional days totaling 10 days of antibiotic therapy. Patient to follow-up with urology as discussed upon completion of antibiotics for further evaluation and scheduling of possible TURP. Patient seen and examined at bedside. He reports feeling great this morning and ready to go home. Patient states he lives at home with his son and his . Patient reports that his is an invalid and unable to care for herself and that is why his son moved in to help both of them. Patient states he also has home care services. Patient currently has Baumann catheter in place and denies having any questions or concerns. Baumann catheter with good output of clear straw-colored urine. Patient denies any suprapubic pain or discomfort. Patient denies any other complaints including headache, lightheadedness, dizziness, chest pain, palpitations, abdominal pain, nausea, vomiting, or diarrhea. Patient is medically stable for discharge at this time. Vital signs reviewed and stable. General: Nontoxic, no distress and appears stated age. Derm: Skin warm and dry, normal coloration for ethnicity. Head: Atraumatic, normocephalic and symmetric. Eyes: EOMs intact, no lid lag, and anicteric sclera Mouth: no lip lesions, mucus membranes moist Cardiovascular: regular rate and rhythm with normal S1S2, no murmur, positive posterior tibial pulses bilaterally, and cap refill < 2 seconds. Lungs: Respirations even, regular, and unlabored on room air. Lungs CTA bilaterally, no rhonchi, no rales, no wheezing, and no accessory muscle usage. Abdominal: soft, nontender to palpation, no guarding, no appreciable organomegaly Ext: ROM intact. No gross muscle atrophy, no edema, no contractures Neuro: Speech clear, face symmetrical and CN II-XII grossly intact with no noted focal neuro deficits Psych: Alert and oriented to person, place, time, and situation. Appropriate and pleasant affect. A total of 45 minutes of time were spent preparing this complex discharge summary. Patient Condition at Discharge: Stable Plan - Discharge Summary Discharge Rx Participant: No New Discharge Prescriptions: New Cefdinir 300 mg PO Q12HR 5 Days #10 cap Continue glipiZIDE [Glucotrol] 5 mg PO BID Cyanocobalamin (Vitamin B-12) [Vitamin B-12] 5,000 mcg PO DAILY Aspirin 81 mg PO DAILY Atorvastatin [Lipitor] 40 mg PO HS Finasteride [Proscar] 5 mg PO DAILY Meclizine [Antivert] 25 mg PO TID PRN PRN Reason: Vertigo Famotidine 40 mg PO HS Donepezil HCl [Aricept] 10 mg PO HS Tamsulosin HCl [Flomax] 0.8 mg PO DAILY sitaGLIPtin PHOSPHATE [Januvia] 100 mg PO DAILY Escitalopram [Lexapro] 10 mg PO DAILY Metoprolol Tartrate [Lopressor] 12.5 mg PO BID Discontinued Cefdinir 300 mg PO BID Discharge Medication List glipiZIDE [Glucotrol] 5 mg PO BID 10/30/14 [History] Cyanocobalamin (Vitamin B-12) [Vitamin B-12] 5,000 mcg PO DAILY 04/17/17 [History] Aspirin 81 mg PO DAILY 04/20/17 [Rx] Atorvastatin [Lipitor] 40 mg PO HS 11/04/18 [History] Finasteride [Proscar] 5 mg PO DAILY 12/01/18 [History] sitaGLIPtin PHOSPHATE [Januvia] 100 mg PO DAILY 01/16/21 [History] Donepezil HCl [Aricept] 10 mg PO HS 11/18/21 [History] Escitalopram [Lexapro] 10 mg PO DAILY 11/18/21 [History] Famotidine 40 mg PO HS 11/18/21 [History] Meclizine [Antivert] 25 mg PO TID PRN 11/18/21 [History] Metoprolol Tartrate [Lopressor] 12.5 mg PO BID 11/18/21 [History] Tamsulosin HCl [Flomax] 0.8 mg PO DAILY 11/18/21 [History] Cefdinir 300 mg PO Q12HR 5 Days #10 cap 11/23/21 [Rx] Follow up Appointment(s)/Referral(s): Lyndsey Aly [NON-STAFF] - As Needed Chinedu Contreras MD [Primary Care Provider] - 1-2 days (Office Busy Please call to schedule appointment) Dariel Delgado DO [STAFF PHYSICIAN] - 1 Week (For Acute Kidney Injury. Office not answering Please call to schedule appointment ) Bridger Mohr MD [STAFF PHYSICIAN] - 1 Week (office will call with appointment time) Ambulatory/Diagnostic Orders: Comprehensive Metabolic Panel [LAB.AMB] Time Frame: 3 Days, Location: None Selected Patient Instructions/Handouts: Urinary Tract Infection in Men (DC), Baumann Catheter Placement and Care (DC) Activity/Diet/Wound Care/Special Instructions: Activity: As tolerated. Take breaks as needed. Diet: Heart healthy and carb consistent diet. Avoid salts, or foods with hidden salts such as canned or boxed foods and frozen dinners. Extra salt makes your heart work harder and traps the fluid in your body for longer. Special Instructions: Take all of your medications as directed and remember to keep all of your doctor's appointments and follow-up as needed. Thank you for allowing us to participate in your care, it was truly a pleasure having you for our patient!!! Maintain Baumann catheter and follow-up with Dr. Kingsley. Antibiotic refill will be ready 11/24/21 at [facility] Discharge Disposition: HOME WITH HOME HEALTH SERVICES <Dorcas Barros - Last Filed: 11/23/21 18:07> Providers Date of admission: 11/18/21 16:17 Attending physician: Chris Figueredo MD Consults: 11/22/21 10:39 Consult Physician Routine Consulting Provider: Dariel Delgado Consult Reason/Comments: urine retention/maintain or D/C baumann? Do you want consulting provider notified?: Yes 11/22/21 11:03 Consult Physician Routine Consulting Provider: Mitchell Bernal Consult Reason/Comments: urine retention Do you want consulting provider notified?: Yes Primary care physician: Chinedu Perez [facility] Course: Jamie Ty NP rendered care for this patient independently, reviewed the findings and plan as documented in the note above. I did not physically speak with or examine the patient on this date. Patient had a negative urine culture, but significantly abnormal UA with symptoms. Urine culture is likely negative due to the oral antibiotics he was on prior to admission.
[2021-11-23 12:02] LABS: Glucose,Whole Blood 246 mg/dL (75-99)
== END 2021-11-23 14:13 | disposition home health service (06) | DRG 682 ==
LOC: EC 13:45 → 4SSUR 16:17
PROVIDERS: ADMIT Internal Medicine; ATTEND Internal Medicine
DX: N17.9 Acute kidney failure, unspecified (principal); G93.41 Metabolic encephalopathy; E87.1 Hypo-osmolality and hyponatremia; E87.2 Acidosis; N18.31 Chronic kidney disease, stage 3a; N40.1 Benign prostatic hyperplasia with lower urinary tract symptoms; Z85.51 Personal history of malignant neoplasm of bladder; E11.22 Type 2 diabetes mellitus with diabetic chronic kidney disease; I12.9 Hypertensive chronic kidney disease with stage 1 through stage 4 chronic kidney disease, or unspecified chronic kidney disease; D63.1 Anemia in chronic kidney disease; Z87.891 Personal history of nicotine dependence; Z79.84 Long term (current) use of oral hypoglycemic drugs; E78.5 Hyperlipidemia, unspecified; E86.0 Dehydration; E86.1 Hypovolemia; E87.5 Hyperkalemia; F32.A Depression, unspecified; F41.9 Anxiety disorder, unspecified; G47.33 Obstructive sleep apnea (adult) (pediatric); I25.10 Atherosclerotic heart disease of native coronary artery without angina pectoris; I25.2 Old myocardial infarction; Z20.822 Contact with and (suspected) exposure to COVID-19; R33.8 Other retention of urine; R74.01 Elevation of levels of liver transaminase levels; R19.7 Diarrhea, unspecified; Z79.82 Long term (current) use of aspirin; Z79.899 Other long term (current) drug therapy; Z82.49 Family history of ischemic heart disease and other diseases of the circulatory system; Z83.3 Family history of diabetes mellitus; Z81.1 Family history of alcohol abuse and dependence; Z83.2 Family history of diseases of the blood and blood-forming organs and certain disorders involving the immune mechanism; Z86.010 Personal history of colon polyps; Z90.89 Acquired absence of other organs; Z98.890 Other specified postprocedural states; Z85.828 Personal history of other malignant neoplasm of skin; Z86.73 Personal history of transient ischemic attack (TIA), and cerebral infarction without residual deficits; Z98.42 Cataract extraction status, left eye; Z98.41 Cataract extraction status, right eye; Z96.1 Presence of intraocular lens; Z91.81 History of falling
CPT/HCPCS: 36415; 71046; 76770; 80053; 81001; 83036; 83605; 83735; 83880; 85025; 85610; 85730; 87040; 87086; 87635; 93005; 99285

== ENCOUNTER 2022-03-19 08:29 | Inpatient (IN) | payer MEDICARE, BC ==
[2022-03-19] MEDS ORDERED: SODIUM CHLORIDE 0.9% 1,000 ML IV STA (08:55)
--- NOTE | 2022-03-19 08:58 | ED ---
General Adult HPI - General Chief complaint: Weakness Stated complaint: bladder infection, weakness Time Seen by Provider: 03/19/22 08:43 Source: patient, family, RN notes reviewed Mode of arrival: wheelchair Limitations: no limitations - History of Present Illness Initial comments: Patient is a pleasant 86-year-old male presenting to the emergency Department with generalized weakness concerns. Symptoms progressed over the past week or 2. Patient was seen at [facility] 2 days ago and diagnosed with urinary tract infection. Patient did have catheter placed. Patient just started his antibiotic yesterday evening. No isolated area of weakness. No confusion. Patient did have one fall secondary to his weakness however does not believe he broke anything. Decreased appetite and solid food intake. Patient is tolerating fluids well - Related Data Home Medications Medication Instructions Recorded Confirmed glipiZIDE [Glucotrol] 5 mg PO BID 10/30/14 11/18/21 Cyanocobalamin (Vitamin B-12) 5,000 mcg PO DAILY 04/17/17 11/18/21 [Vitamin B-12] Atorvastatin [Lipitor] 40 mg PO HS 11/04/18 11/18/21 Finasteride [Proscar] 5 mg PO DAILY 12/01/18 11/18/21 sitaGLIPtin PHOSPHATE [Januvia] 100 mg PO DAILY 01/16/21 11/18/21 Donepezil HCl [Aricept] 10 mg PO HS 11/18/21 11/18/21 Escitalopram [Lexapro] 10 mg PO DAILY 11/18/21 11/18/21 Famotidine 40 mg PO HS 11/18/21 11/18/21 Meclizine [Antivert] 25 mg PO TID PRN 11/18/21 11/18/21 Metoprolol Tartrate [Lopressor] 12.5 mg PO BID 11/18/21 11/18/21 Tamsulosin HCl [Flomax] 0.8 mg PO DAILY 11/18/21 11/18/21 Previous Rx's Medication Instructions Recorded Aspirin 81 mg PO DAILY 04/20/17 Cefdinir 300 mg PO Q12HR 5 Days #10 cap 11/23/21 Allergies Allergy/AdvReac Type Severity Reaction Status Date / Time No Known Allergies Allergy Verified 03/19/22 08:35 Review of Systems ROS Statement: Those systems with pertinent positive or pertinent negative responses have been documented in the HPI. ROS Other: All systems not noted in ROS Statement are negative. Constitutional: Denies: fever Eyes: Denies: eye pain ENT: Denies: ear pain Respiratory: Denies: cough, dyspnea Cardiovascular: Denies: chest pain Endocrine: Denies: fatigue Gastrointestinal: Denies: abdominal pain Genitourinary: Reports: as per HPI Musculoskeletal: Denies: back pain Skin: Denies: rash Neurological: Reports: as per HPI Past Medical History Past Medical History: Coronary Artery Disease (CAD), Cancer, CVA/TIA, Diabetes Mellitus, Hyperlipidemia, Hypertension, Myocardial Infarction (MO), Prostate Disorder, Sleep Apnea/CPAP/BIPAP, Vascular Disorder Additional Past Medical History / Comment(s): TIA in 2015, MICHAEL without device, CKD stage III, chronic low back pain, migraines in past, vertigo, balance issues, falls, BPH, benign colon polyp, diverticular disease, vascular disease with surgery-AAA repair and R leg bypass, skin cancer with removal. bladder cancer Last Myocardial Infarction Date:: 04/17/17 History of Any Multi-Drug Resistant Organisms: None Reported Past Surgical History: Adenoidectomy, Heart Catheterization With Stent, Tonsillectomy Additional Past Surgical History / Comment(s): 12/07/18 endovascular repair/stent graft infra renal aorta, R leg bypass surgery after AAA repair at [facility], colonoscopy/polypectomy, basal cell cancer removed from forehead, bilateral cataract removals/lens implants, cystoscopy -biopsy for cancer Past Anesthesia/Blood Transfusion Reactions: Motion Sickness Additional Past Anesthesia/Blood Transfusion Reaction / Comment(s): . Date of Last Stent Placement:: 03/2017 Past Psychological History: Anxiety, Depression Smoking Status: Former smoker Past Alcohol Use History: None Reported Past Drug Use History: None Reported - Past Family History Brother(s) Family Medical History: No Reported History Sister(s) Family Medical History: No Reported History Son(s) Family Medical History: No Reported History Father Family Medical History: Diabetes Mellitus, Myocardial Infarction (MO), Vascular Disorder Additional Family Medical History / Comment(s): Father of a MO at the age of 76 or 77yrs. He was an alcoholic. Mother Family Medical History: Deep Vein Thrombosis (DVT), Pulmonary Embolus Additional Family Medical History / Comment(s): Mother at 42 yrs of age of "blood clot" in the lung and it went to the heart. General Exam Limitations: no limitations General appearance: alert, in no apparent distress Head exam: Present: atraumatic Eye exam: Present: normal appearance, PERRL, EOMI. Absent: nystagmus ENT exam: Present: normal oropharynx Neck exam: Present: normal inspection. Absent: tenderness, meningismus Respiratory exam: Present: normal lung sounds bilaterally Cardiovascular Exam: Present: regular rate, normal rhythm GI/Abdominal exam: Present: soft. Absent: tenderness Extremities exam: Present: normal inspection Neurological exam: Present: alert, oriented X3, CN II-XII intact. Absent: motor sensory deficit Expanded Neurological exam: Present: protecting the airway Patient oriented to: Present: person, place, time Speech: Present: fluid speech Cranial nerves: EOM's Intact: Normal Motor strength exam: RUE: 5, LUE: 5, RLE: 5, LLE: 5 Eye Response: (4) open spontaneously Motor Response: (6) obeys commands Verbal Response: (5) oriented Psychiatric exam: Present: normal affect, normal mood Skin exam: Present: normal color Course Vital Signs 03/19/22 08:31 Temperature 98.1 F Pulse Rate 56 L Respiratory 16 Rate Blood Pressure 106/66 O2 Sat by Pulse 95 Oximetry - Reevaluation(s) Reevaluation #1: 03/19/22 10:08 Patient meets criteria for severe sepsis diagnosed at 10:08 AM. Blood culture and lactic acid and IV antibiotics and follow-up and ordered. 03/19/22 10:28 Case was discussed with Dr. Nixon, who will admit for Dr. Contreras. EKG Findings - EKG Comments: EKG Findings:: Sinus rhythm with rate of 61. LA 166. QRS 89. QT 447. QTC 450. Left axis. Normal QRS. No acute ST change. Medical Decision Making - Lab Data Result diagrams: 03/19/22 09:16 03/19/22 09:16 Lab Results 03/19/22 03/19/22 03/19/22 Range/Units 09:16 09:16 09:16 WBC 13.8 H (3.8-10.6) k/uL RBC 3.84 L (4.30-5.90) m/uL Hgb 12.0 L (13.0-17.5) gm/dL Hct 37.7 L (39.0-53.0) % MCV 98.3 (80.0-100.0) fL MCH 31.3 (25.0-35.0) pg MCHC 31.8 (31.0-37.0) g/dL RDW 12.9 (11.5-15.5) % Plt Count 293 (150-450) k/uL MPV 8.0 Neutrophils % 81 % Lymphocytes % 7 % Monocytes % 8 % Eosinophils % 2 % Basophils % 0 % Neutrophils # 11.2 H (1.3-7.7) k/uL Lymphocytes # 1.0 (1.0-4.8) k/uL Monocytes # 1.1 H (0-1.0) k/uL Eosinophils # 0.2 (0-0.7) k/uL Basophils # 0.1 (0-0.2) k/uL PT 10.7 (9.0-12.0) sec INR 1.0 (<1.2) APTT 22.4 (22.0-30.0) sec Sodium (137-145) mmol/L Potassium (3.5-5.1) mmol/L Chloride (98-107) mmol/L Carbon Dioxide (22-30) mmol/L Anion Gap mmol/L BUN (9-20) mg/dL Creatinine (0.66-1.25) mg/dL Est GFR (CKD-EPI)AfAm (>60 ml/min/1.73 sqM) Est GFR (CKD-EPI)NonAf (>60 ml/min/1.73 sqM) Glucose (74-99) mg/dL Plasma Lactic Acid Zander (0.7-2.0) mmol/L Calcium (8.4-10.2) mg/dL Phosphorus (2.5-4.5) mg/dL Magnesium (1.6-2.3) mg/dL Total Bilirubin (0.2-1.3) mg/dL AST (17-59) U/L ALT (4-49) U/L Alkaline Phosphatase (38-126) U/L Troponin I (0.000-0.034) ng/mL Total Protein (6.3-8.2) g/dL Albumin (3.5-5.0) g/dL TSH (0.465-4.680) mIU/L Free T4 (0.78-2.19) ng/dL Free T3 pg/mL (2.8-5.3) pg/ml Urine Color Yellow Urine Appearance Cloudy (Clear) Urine pH 6.0 (5.0-8.0) Ur Specific Cleghorn 1.012 (1.001-1.035) Urine Protein 1+ H (Negative) Urine Glucose (UA) Negative (Negative) Urine Ketones Negative (Negative) Urine Blood Moderate H (Negative) Urine Nitrite Negative (Negative) Urine Bilirubin Negative (Negative) Urine Urobilinogen <2.0 (<2.0) mg/dL Ur Leukocyte Esterase Large H (Negative) Urine RBC 39 H (0-5) /hpf Urine WBC >182 H (0-5) /hpf Urine Bacteria Rare H (None) /hpf Urine Mucus Rare H (None) /hpf 03/19/22 03/19/22 03/19/22 Range/Units 09:16 09:16 09:16 WBC (3.8-10.6) k/uL RBC (4.30-5.90) m/uL Hgb (13.0-17.5) gm/dL Hct (39.0-53.0) % MCV (80.0-100.0) fL MCH (25.0-35.0) pg MCHC (31.0-37.0) g/dL RDW (11.5-15.5) % Plt Count (150-450) k/uL MPV Neutrophils % % Lymphocytes % % Monocytes % % Eosinophils % % Basophils % % Neutrophils # (1.3-7.7) k/uL Lymphocytes # (1.0-4.8) k/uL Monocytes # (0-1.0) k/uL Eosinophils # (0-0.7) k/uL Basophils # (0-0.2) k/uL PT (9.0-12.0) sec INR (<1.2) APTT (22.0-30.0) sec Sodium 135 L (137-145) mmol/L Potassium 4.9 (3.5-5.1) mmol/L Chloride 105 (98-107) mmol/L Carbon Dioxide 21 L (22-30) mmol/L Anion Gap 9 mmol/L BUN 38 H (9-20) mg/dL Creatinine 2.46 H (0.66-1.25) mg/dL Est GFR (CKD-EPI)AfAm 27 (>60 ml/min/1.73 sqM) Est GFR (CKD-EPI)NonAf 23 (>60 ml/min/1.73 sqM) Glucose 135 H (74-99) mg/dL Plasma Lactic Acid Zander 2.5 H* (0.7-2.0) mmol/L Calcium 9.1 (8.4-10.2) mg/dL Phosphorus 3.3 (2.5-4.5) mg/dL Magnesium 1.6 (1.6-2.3) mg/dL Total Bilirubin 0.8 (0.2-1.3) mg/dL AST 50 (17-59) U/L ALT 38 (4-49) U/L Alkaline Phosphatase 103 (38-126) U/L Troponin I <0.012 (0.000-0.034) ng/mL Total Protein 7.0 (6.3-8.2) g/dL Albumin 3.4 L (3.5-5.0) g/dL TSH 2.300 (0.465-4.680) mIU/L Free T4 1.56 (0.78-2.19) ng/dL Free T3 pg/mL 2.8 (2.8-5.3) pg/ml Urine Color Urine Appearance (Clear) Urine pH (5.0-8.0) Ur Specific C[place] (1.001-1.035) Urine Protein (Negative) Urine Glucose (UA) (Negative) Urine Ketones (Negative) Urine Blood (Negative) Urine Nitrite (Negative) Urine Bilirubin (Negative) Urine Urobilinogen (<2.0) mg/dL Ur Leukocyte Esterase (Negative) Urine RBC (0-5) /hpf Urine WBC (0-5) /hpf Urine Bacteria (None) /hpf Urine Mucus (None) /hpf Critical Care Time Critical Care Time: Yes Total Critical Care Time: 32 Disposition Clinical Impression: Severe sepsis, UTI (urinary tract infection) Disposition: ADMITTED IP TO THIS HOSP Is patient prescribed a controlled substance at d/c from ED?: No Referrals: Chinedu Contreras MD [Primary Care Provider] - 1-2 days Time of Disposition: 10:09
[2022-03-19 09:30] LABS: Basophils # (A) 0.1 k/uL (0-0.2); Basophils % (A) 0 %; Eosinophils # (A) 0.2 k/uL (0-0.7); Eosinophils % (A) 2 %; HCT 37.7 % (39.0-53.0); Lymphocytes % (A) 7 %; MCH 31.3 pg (25.0-35.0); MCHC 31.8 g/dL (31.0-37.0); MCV 98.3 fL (80.0-100.0); Monocytes # (A) 1.1 k/uL (0-1.0); Monocytes % (A) 8 %; Neutrophils # (A) 11.2 k/uL (1.3-7.7); Neutrophils % (A) 81 %; Platelet Count 293 k/uL (150-450); RBC 3.84 m/uL (4.30-5.90); RDW 12.9 % (11.5-15.5); WBC 13.8 k/uL (3.8-10.6)
[2022-03-19 09:41] LABS: Albumin 3.4 g/dL (3.5-5.0); Appearance,Urine Cloudy (Clear); Bacteria,Urine Rare /hpf; Bilirubin,Urine Negative (Negative); Blood,Urine Moderate (Negative); Calcium 9.1 mg/dL (8.4-10.2); Color,Urine Yellow; Glucose,Urine (UA) Negative (Negative); Ketones,Urine Negative (Negative); Leukocyte Esterase,Urine Large (Negative); Mucus,Urine Rare /hpf; Nitrite,Urine Negative (Negative); Phosphorus 3.3 mg/dL (2.5-4.5); Protein,Urine 1+ (Negative); RBC,Urine 39 /hpf (0-5); Specific Gravity,Urine 1.012 (1.001-1.035); Total Bilirubin 0.8 mg/dL (0.2-1.3); Urobilinogen,Urine <2.0 mg/dL (<2.0); WBC,Urine >182 /hpf (0-5)
[2022-03-19 09:50] LABS: Partial Thromboplastin Time 22.4 sec (22.0-30.0); Prothrombin Time 10.7 sec (9.0-12.0)
[2022-03-19 09:51] LABS: Magnesium 1.6 mg/dL (1.6-2.3); Potassium 4.9 mmol/L (3.5-5.1)
[2022-03-19 09:57] LABS: T4, Free (Free Thyroxine) 1.56 ng/dL (0.78-2.19)
[2022-03-19] MEDS ORDERED: ACETAMINOPHEN TAB 325 MG TAB PO PRN (10:09)
[2022-03-19] MEDS ORDERED: NALOXONE 0.4 MG/ML 1 ML VIAL IV PRN ×2 (10:09→10:29)
--- NOTE | 2022-03-19 10:15 | XR ---
EXAMINATION TYPE: XR chest 2V DATE OF EXAM: 03/19/2022 COMPARISON: Chest x-ray November 18, 2021 HISTORY: Weakness. TECHNIQUE: Frontal and lateral views of the chest are obtained. FINDINGS: There is mild chronic parenchymal change without suspicious focal air space opacity, pleur al effusion, or pneumothorax seen. The cardiac silhouette size is stable and within normal limits. The osseous structures are demineralized. Aortic stent graft in the abdomen is partially imaged on l ateral view. IMPRESSION: No acute cardiopulmonary process. No significant change from prior.
--- NOTE | 2022-03-19 10:16 | CT ---
EXAMINATION TYPE: CT brain wo con DATE OF EXAM: 03/19/2022 HISTORY: Weakness. CT DLP: 1143.4 mGycm. Automated Exposure Control for Dose Reduction was Utilized. TECHNIQUE: CT scan of the head is performed without contrast. COMPARISON: CT brain November 04, 2018. FINDINGS: There is no acute intracranial hemorrhage or midline shift identified. There is mild to m oderate diffuse ventricular and sulcal prominence consistent with diffuse age-related cerebral atroph y. Some prominence of CSF over the high right frontal lobe redemonstrated consistent with chronic sub dural hygroma. There is [id number] low-attenuation in the periventricular white matter consiste nt with chronic small vessel ischemic change. Scleral calculation bilateral globes redemonstrated. Paranasal sinuses are clear. IMPRESSION: No acute intracranial hemorrhage or midline shift. There is mild to moderate diffuse ag e-related cerebral atrophy and chronic small vessel ischemic change redemonstrated. No significant c hange from prior.
[2022-03-19] MEDS: SODIUM CHLORIDE 0.9% 1,000 ML IV SCH (10:48)
--- NOTE | 2022-03-19 11:19 | P.HPIM ---
History of Present Illness H&P Date: 03/19/22 Chief Complaint: Weakness, inability to urinate 86-year-old male with history of coronary artery disease, type 2 diabetes, obstructive sleep apnea, history of bladder cancer follows up with urology outpatient. Patient presents today to the emergency department with generalized weakness and concerns regarding inability to urinate. He reports that his symptoms began about a month ago. He also reports urinary incontinence. He was seen at [facility] on 03/17/2022 and was diagnosed with UTI and acute urinary retention. A Aceves catheter was placed at that time and he was started on oral antibiotics and discharged home. He presents with his brother today. He reports that his weakness has been progressing. He also reports that he has been having recurrent urinary tract infection. He is unable to specify the name of oral antibiotic he was started on. He does not have any confusion. Denies any falls, but did state that his "legs give out" yesterday. He also endorses decreased appetite. He reports that he has been drinking okay but he feels very dehydrated. He denies fever and chills. Endorses nausea but denies vomiting. Denies abdominal pain. He reports that he felt relieved after Aceves catheter was placed in. Denies shortness of breath, chest pain or palpitations. Workup in ED revealed leukocytosis with elevated lactic acid. Patient also CELE with elevated creatinine of 2.46. UA shows large leuk esterase. Review of Systems Constitutional: Patient reports no fever, no chills, no weight changes, decr eased appetite +, generalized weakness+ Eyes: Patient reports no double vision, no visual changes ENT: Patient reports no rhinorrhea, no post nasal drip, no sore throat Cardiovascular: Patient reports no chest, no edema, no palpitations, no syncope, no orthopnea, no paroxysmal nocturnal dyspnea. Respiratory: Patient reports no dyspnea, no cough, no wheeze Gastrointestinal: Patient reports no nausea, no vomiting, no constipation, no diarrhea Genitourinary: Urinary retention, dysuria. Musculoskeletal: Patient reports no unusual joint pain, no joint swelling or weakness. Patient reports no muscular pain. Psychiatric: Patient reports no changes in mood, no sleeping problems. Patient reports no changes in memory. Endocrine: Patient reports no thirst, no polyuria, no cold intolerance, no heat intolerance. Neurological: Patient reports no unusual paresthesias, no seizures, no paresis, no paralysis, no facila droop, no headache. Heme/Lymphatic: Patient reports no easy bruising, no bleeding tendency, no lymphadenopathy. Allergic/ Immunologic: Patient reports no recent allergic reactions or immunologic history. Skin: Patient reports no rashes or unusual lesions. Past Medical History Past Medical History: Coronary Artery Disease (CAD), Cancer, CVA/TIA, Diabetes Mellitus, Hyperlipidemia, Hypertension, Myocardial Infarction (VT), Prostate Disorder, Sleep Apnea/CPAP/BIPAP, Vascular Disorder Additional Past Medical History / Comment(s): TIA in 2014, MICHAEL without device, CKD stage III, chronic low back pain, migraines in past, vertigo, balance issues, falls, BPH, benign colon polyp, diverticular disease, vascular disease with surgery-AAA repair and R leg bypass, skin cancer with removal. bladder cancer Last Myocardial Infarction Date:: 04/17/17 History of Any Multi-Drug Resistant Organisms: None Reported Past Surgical History: Adenoidectomy, Heart Catheterization With Stent, Tonsillectomy Additional Past Surgical History / Comment(s): 12/07/18 endovascular repair/stent graft infra renal aorta, R leg bypass surgery after AAA repair at [facility], colonoscopy/polypectomy, basal cell cancer removed from forehead, bilateral cataract removals/lens implants, cystoscopy -biopsy for cancer Past Anesthesia/Blood Transfusion Reactions: Motion Sickness Additional Past Anesthesia/Blood Transfusion Reaction / Comment(s): . Date of Last Stent Placement:: 03/2017 Past Psychological History: Anxiety, Depression Smoking Status: Former smoker Past Alcohol Use History: None Reported Past Drug Use History: None Reported - Past Family History Brother(s) Family Medical History: No Reported History Sister(s) Family Medical History: No Reported History Son(s) Family Medical History: No Reported History Father Family Medical History: Diabetes Mellitus, Myocardial Infarction (VT), Vascular Disorder Additional Family Medical History / Comment(s): Father of a VT at the age of 76 or 77yrs. He was an alcoholic. Mother Family Medical History: Deep Vein Thrombosis (DVT), Pulmonary Embolus Additional Family Medical History / Comment(s): Mother at 42 yrs of age of "blood clot" in the lung and it went to the heart. Medications and Allergies Home Medications Medication Instructions Recorded Confirmed Type glipiZIDE [Glucotrol] 5 mg PO BID 10/30/14 11/18/21 History Cyanocobalamin (Vitamin B-12) 5,000 mcg PO DAILY 04/17/17 11/18/21 History [Vitamin B-12] Aspirin 81 mg PO DAILY 04/20/17 11/18/21 Rx Atorvastatin [Lipitor] 40 mg PO HS 11/04/18 11/18/21 History Finasteride [Proscar] 5 mg PO DAILY 12/01/18 11/18/21 History sitaGLIPtin PHOSPHATE [Januvia] 100 mg PO DAILY 01/16/21 11/18/21 History Donepezil HCl [Aricept] 10 mg PO HS 11/18/21 11/18/21 History Escitalopram [Lexapro] 10 mg PO DAILY 11/18/21 11/18/21 History Famotidine 40 mg PO HS 11/18/21 11/18/21 History Meclizine [Antivert] 25 mg PO TID PRN 11/18/21 11/18/21 History Metoprolol Tartrate [Lopressor] 12.5 mg PO BID 11/18/21 11/18/21 History Tamsulosin HCl [Flomax] 0.8 mg PO DAILY 11/18/21 11/18/21 History Cefdinir 300 mg PO Q12HR 5 Days #10 cap 11/23/21 Rx Allergies Allergy/AdvReac Type Severity Reaction Status Date / Time No Known Allergies Allergy Verified 03/19/22 11:04 Physical Exam Vitals: Vital Signs Temp Pulse Resp BP Pulse Ox 03/19/22 08:31 98.1 F 56 L 16 106/66 95 Intake and Output 03/18/22 03/19/22 03/19/22 22:59 06:59 14:59 Other: Voiding Method Indwelling Catheter Weight 72.575 kg Constitutional: No acute distress, conversant, pleasant Eyes: Anicteric sclerae, moist conjunctiva, no lid-lag PERRLA HENMT: Normocephalic / Atraumatic oropharynx clear, no erythema, exudates Neck: Supple, full range of motion, nontender, no masses, or JVD no carotid bruits no thyromegaly no lymphadenopathy Lungs: Bilateral equal air entry with no wheezing or crackles. No use of acc essory muscles. Cardiovascular: Heart regular in rate and rhythm, no murmur, no peripheral edema Abdominal: Soft, Nontender, no guarding, rebound or rigidity abdomen moving with respiration normoactive bowel sounds no hepatomegaly, No splenomegaly no palpable mass no abdominal wall hernia noted Skin: Normal temperature, tone, texture, turgor no induration no subcutaneous nodules no rash,lesions no ulcers Extremities: No digital cyanosis no clubbing pedal pulses intact and symmetrical radial pulses intact and symmetrical normal gait and station no calf tenderness Psychiatric: Alert and oriented to person, place and time appropriate affect intact judgement Neuro: Muscle Strength 5/5 in all 4 extremities sensation to light touch grossly present throughout cranial nerves II-XII grossly intact no focal sensory deficits Results CBC & Chem 7: 03/19/22 09:16 03/19/22 09:16 Labs: Abnormal Lab Results - Last 24 Hours (Table) 03/19/22 03/19/22 03/19/22 Range/Units 09:16 09:16 09:16 WBC 13.8 H (3.8-10.6) k/uL RBC 3.84 L (4.30-5.90) m/uL Hgb 12.0 L (13.0-17.5) gm/dL Hct 37.7 L (39.0-53.0) % Neutrophils # 11.2 H (1.3-7.7) k/uL Monocytes # 1.1 H (0-1.0) k/uL Sodium 135 L (137-145) mmol/L Carbon Dioxide 21 L (22-30) mmol/L BUN 38 H (9-20) mg/dL Creatinine 2.46 H (0.66-1.25) mg/dL Glucose 135 H (74-99) mg/dL Plasma Lactic Acid Zander (0.7-2.0) mmol/L Albumin 3.4 L (3.5-5.0) g/dL Urine Protein 1+ H (Negative) Urine Blood Moderate H (Negative) Ur Leukocyte Esterase Large H (Negative) Urine RBC 39 H (0-5) /hpf Urine WBC >182 H (0-5) /hpf Urine Bacteria Rare H (None) /hpf Urine Mucus Rare H (None) /hpf 03/19/22 Range/Units 09:16 WBC (3.8-10.6) k/uL RBC (4.30-5.90) m/uL Hgb (13.0-17.5) gm/dL Hct (39.0-53.0) % Neutrophils # (1.3-7.7) k/uL Monocytes # (0-1.0) k/uL Sodium (137-145) mmol/L Carbon Dioxide (22-30) mmol/L BUN (9-20) mg/dL Creatinine (0.66-1.25) mg/dL Glucose (74-99) mg/dL Plasma Lactic Acid Zander 2.5 H* (0.7-2.0) mmol/L Albumin (3.5-5.0) g/dL Urine Protein (Negative) Urine Blood (Negative) Ur Leukocyte Esterase (Negative) Urine RBC (0-5) /hpf Urine WBC (0-5) /hpf Urine Bacteria (None) /hpf Urine Mucus (None) /hpf Thrombosis Risk Factor Assmnt - DVT/VTE Prophylaxis DVT/VTE Prophylaxis: Pharmacologic Prophylaxis ordered, Mechanical Prophylaxis ordered Assessment and Plan Assessment: 1. Sepsis - Leukocytosis, lactic acidosis and evidence of UTI - Patient received 1 dose of IV ceftriaxone in the ED. UA reviewed. - Continue IV ceftriaxone. Follow urine cultures. - Blood culture was ordered. - IV fluids at 75 mL per hour. We will be cautious with IV fluid administration as patient does have a cardiac history. 2. UTI - Associated with history of recurrent UTIs. Follow urine cultures. Antibiotics as above. 3. Urinary retention - Acute versus chronic. Patient does have history of bladder cancer, unable to provide much information. - Obtain US kidneys and bladder stroke rule out obstruction/hydronephrosis. - Consult urology. - Aceves catheter has been placed. 4. CELE - Secondary to sepsis and dehydration, likely prerenal. Cannot rule out obstructive etiology. - As above, use kidneys and bladder - Continue IV fluids and monitor renal function. 5. Weakness - Related to sepsis. Consult physical therapy and occupational therapy. 6. CAD, type II DM, MICHAEL - Resume home meds after med reconciliation is completed. I have spent 55 minutes admitting this patient. Type of stay: Inpatient Discussed with: Patient and brother Code status: Full code DVT prophylaxis: Lovenox Time with Patient: Greater than 30
[2022-03-19] MEDS ORDERED: METOPROLOL TARTRATE 12.5 MG TAB PO PRN (11:28)
--- NOTE | 2022-03-19 12:07 | US ---
EXAMINATION TYPE: US kidneys/renal and bladder DATE OF EXAM: 03/19/2022 COMPARISON: Renal ultrasound November 22, 2021 CLINICAL HISTORY: CELE, Urinary retention. abn labs bladder ca removed. EXAM MEASUREMENTS: Right Kidney: 10.3 x 5.4 x 3.9 cm Left Kidney: 7.9 x 4.5 x 4.4 cm Right Kidney: hydronephrosis seen Left Kidney: hydronephrosis seen. Bladder: Cathter in place. Mild to moderate right-sided hydronephrosis is redemonstrated. Moderate to severe left-sided hydrone phrosis again seen. Aceves catheter decompresses bladder. IMPRESSION: Persistent left greater than right hydronephrosis not significant changed from prior ultr asound.
[2022-03-19 16:48] VITALS: RESP 18
[2022-03-19 17:10] LABS: Glucose,Whole Blood 192 mg/dL (75-99)
--- NOTE | 2022-03-19 19:18 | P.GSCN ---
History of Present Illness Consult date: 03/19/22 Reason for Consult: Urinary retention Requesting physician: Kalin Arnold History of present illness: The patient is an 86-year-old male with a history of coronary artery disease, type 2 diabetes, and obstructive sleep apnea. He has a known history of bladder cancer, as well as voiding dysfunction. He was previously followed by Dr. Carter and is now followed by Dr. Mohr. He was seen in the ER at [facility] on 03/17/2022 and diagnosed with acute urinary retention and a UTI. A Aceves catheter was placed, and he experienced relief. Oral antibiotics were prescribed. He has a history of recurrent UTIs. A CT scan in September 2020 showed no evidence of hydronephrosis. Renal ultrasound in October 2021 showed bilateral moderate hydronephrosis, left greater than right. Review of Systems - Constitutional Reports weakness, Denies chills, Denies fever - Gastrointestinal Reports nausea, Denies vomiting - Genitourinary Reports as per HPI Past Medical History Past Medical History: Coronary Artery Disease (CAD), Cancer, CVA/TIA, Diabetes Mellitus, Hyperlipidemia, Hypertension, Myocardial Infarction ([place]), Prostate Disorder, Sleep Apnea/CPAP/BIPAP, Vascular Disorder Additional Past Medical History / Comment(s): TIA in 2014, MICHAEL without device, CKD stage III, chronic low back pain, migraines in past, vertigo, balance issues, falls, BPH, benign colon polyp, diverticular disease, vascular disease with surgery-AAA repair and R leg bypass, skin cancer with removal, superficial bladder cancer Last Myocardial Infarction Date:: 04/17/17 History of Any Multi-Drug Resistant Organisms: None Reported Past Surgical History: Adenoidectomy, Heart Catheterization With Stent, Tonsillectomy Additional Past Surgical History / Comment(s): 12/07/18 endovascular repair/stent graft infra renal aorta, R leg bypass surgery after AAA repair at [facility], colonoscopy/polypectomy, basal cell cancer removed from forehead, bilateral cataract removals/lens implants, cystoscopy -biopsy for cancer Past Anesthesia/Blood Transfusion Reactions: Motion Sickness Additional Past Anesthesia/Blood Transfusion Reaction / Comm: . Date of Last Stent Placement:: 03/2017 Past Psychological History: Anxiety, Depression Smoking Status: Former smoker Past Alcohol Use History: None Reported Past Drug Use History: None Reported - Past Family History Brother(s) Family Medical History: No Reported History Sister(s) Family Medical History: No Reported History Son(s) Family Medical History: No Reported History Father Family Medical History: Diabetes Mellitus, Myocardial Infarction (TN), Vascular Disorder Additional Family Medical History / Comment(s): Father of a TN at the age of 76 or 77yrs. He was an alcoholic. Mother Family Medical History: Deep Vein Thrombosis (DVT), Pulmonary Embolus Additional Family Medical History / Comment(s): Mother at 42 yrs of age of "blood clot" in the lung and it went to the heart. Medications and Allergies Home Medications Medication Instructions Recorded Confirmed Type glipiZIDE [Glucotrol] 5 mg PO BID 10/30/14 03/19/22 History Cyanocobalamin (Vitamin B-12) 1,000 mcg PO DAILY 04/17/17 03/19/22 History [Vitamin B-12] Aspirin 81 mg PO DAILY 04/20/17 03/19/22 Rx Finasteride [Proscar] 5 mg PO DAILY 12/01/18 03/19/22 History sitaGLIPtin PHOSPHATE [Januvia] 100 mg PO DAILY 01/16/21 03/19/22 History Escitalopram [Lexapro] 10 mg PO DAILY 11/18/21 03/19/22 History Famotidine 40 mg PO HS 11/18/21 03/19/22 History Metoprolol Tartrate [Lopressor] 12.5 mg PO BID PRN 11/18/21 03/19/22 History Tamsulosin HCl [Flomax] 0.8 mg PO DAILY 11/18/21 03/19/22 History Cholecalciferol [Vitamin D3 (25 25 mcg PO DAILY 03/19/22 03/19/22 History Mcg = 1000 Iu)] Donepezil HCl [Aricept ODT] 10 mg PO HS 03/19/22 03/19/22 History Sulfamethoxazole/Trimethoprim 1 tab PO BID 03/19/22 03/19/22 History [Bactrim DS 800-160 mg] Allergies Allergy/AdvReac Type Severity Reaction Status Date / Time No Known Allergies Allergy Verified 03/19/22 11:04 Surgical - Exam Vital Signs Temp Pulse Resp BP Pulse Ox 98.1 F 56 L 16 106/66 95 03/19/22 08:31 03/19/22 08:31 03/19/22 08:31 03/19/22 08:31 03/19/22 08:31 - General well developed, well nourished, no distress - Respiratory normal respiratory effort - Abdomen Abdomen: soft, non tender, no guarding, no rigid, no rebound - Genitourinary normal penis with no external lesions, testicles non-tender - Psychiatric oriented to time, oriented to person, oriented to place, speech is normal, memory intact Results - Labs 03/19/22 09:16 03/19/22 09:16 Abnormal Lab Results - Last 24 Hours (Table) 03/19/22 03/19/22 03/19/22 Range/Units 09:16 09:16 09:16 WBC 13.8 H (3.8-10.6) k/uL RBC 3.84 L (4.30-5.90) m/uL Hgb 12.0 L (13.0-17.5) gm/dL Hct 37.7 L (39.0-53.0) % Neutrophils # 11.2 H (1.3-7.7) k/uL Monocytes # 1.1 H (0-1.0) k/uL Sodium 135 L (137-145) mmol/L Carbon Dioxide 21 L (22-30) mmol/L BUN 38 H (9-20) mg/dL Creatinine 2.46 H (0.66-1.25) mg/dL Glucose 135 H (74-99) mg/dL POC Glucose (mg/dL) (75-99) mg/dL Plasma Lactic Acid Zander (0.7-2.0) mmol/L Albumin 3.4 L (3.5-5.0) g/dL Urine Protein 1+ H (Negative) Urine Blood Moderate H (Negative) Ur Leukocyte Esterase Large H (Negative) Urine RBC 39 H (0-5) /hpf Urine WBC >182 H (0-5) /hpf Urine Bacteria Rare H (None) /hpf Urine Mucus Rare H (None) /hpf 03/19/22 03/19/22 Range/Units 09:16 17:07 WBC (3.8-10.6) k/uL RBC (4.30-5.90) m/uL Hgb (13.0-17.5) gm/dL Hct (39.0-53.0) % Neutrophils # (1.3-7.7) k/uL Monocytes # (0-1.0) k/uL Sodium (137-145) mmol/L Carbon Dioxide (22-30) mmol/L BUN (9-20) mg/dL Creatinine (0.66-1.25) mg/dL Glucose (74-99) mg/dL POC Glucose (mg/dL) 192 H (75-99) mg/dL Plasma Lactic Acid Zander 2.5 H* (0.7-2.0) mmol/L Albumin (3.5-5.0) g/dL Urine Protein (Negative) Urine Blood (Negative) Ur Leukocyte Esterase (Negative) Urine RBC (0-5) /hpf Urine WBC (0-5) /hpf Urine Bacteria (None) /hpf Urine Mucus (None) /hpf Diabetes panel 03/19/22 Range/Units 09:16 Sodium 135 L (137-145) mmol/L Potassium 4.9 (3.5-5.1) mmol/L Chloride 105 (98-107) mmol/L Carbon Dioxide 21 L (22-30) mmol/L BUN 38 H (9-20) mg/dL Creatinine 2.46 H (0.66-1.25) mg/dL Glucose 135 H (74-99) mg/dL Calcium 9.1 (8.4-10.2) mg/dL AST 50 (17-59) U/L ALT 38 (4-49) U/L Alkaline Phosphatase 103 (38-126) U/L Total Protein 7.0 (6.3-8.2) g/dL Albumin 3.4 L (3.5-5.0) g/dL Thyroid panel 03/19/22 Range/Units 09:16 TSH 2.300 (0.465-4.680) mIU/L Calcium panel 03/19/22 Range/Units 09:16 Calcium 9.1 (8.4-10.2) mg/dL Phosphorus 3.3 (2.5-4.5) mg/dL Albumin 3.4 L (3.5-5.0) g/dL Pituitary panel 03/19/22 Range/Units 09:16 Sodium 135 L (137-145) mmol/L Potassium 4.9 (3.5-5.1) mmol/L Chloride 105 (98-107) mmol/L Carbon Dioxide 21 L (22-30) mmol/L BUN 38 H (9-20) mg/dL Creatinine 2.46 H (0.66-1.25) mg/dL Glucose 135 H (74-99) mg/dL Calcium 9.1 (8.4-10.2) mg/dL TSH 2.300 (0.465-4.680) mIU/L Adrenal panel 03/19/22 Range/Units 09:16 Sodium 135 L (137-145) mmol/L Potassium 4.9 (3.5-5.1) mmol/L Chloride 105 (98-107) mmol/L Carbon Dioxide 21 L (22-30) mmol/L BUN 38 H (9-20) mg/dL Creatinine 2.46 H (0.66-1.25) mg/dL Glucose 135 H (74-99) mg/dL Calcium 9.1 (8.4-10.2) mg/dL Total Bilirubin 0.8 (0.2-1.3) mg/dL AST 50 (17-59) U/L ALT 38 (4-49) U/L Alkaline Phosphatase 103 (38-126) U/L Total Protein 7.0 (6.3-8.2) g/dL Albumin 3.4 L (3.5-5.0) g/dL - Imaging US - kidney/bladder: report reviewed Assessment and Plan Plan: The patient currently has an indwelling Aceves catheter, which is draining clear urine. Ultrasound shows mild to moderate right hydronephrosis, moderate to severe left hydronephrosis. As stated, ultrasound earlier this year showed evidence of hydronephrosis but a CT scan in September 2020 showed no evidence of hydronephrosis. I intend to review the patient's office records if I am able to locate them. In the meantime, I would suggest that the catheter remain in place and that he continue to receive ceftriaxone.
[2022-03-19] MEDS: DONEPEZIL 10 MG TAB PO SCH (19:20)
[2022-03-19] MEDS: FAMOTIDINE 20 MG TAB PO SCH (19:20)
[2022-03-19 19:30] LABS: Glucose,Whole Blood 279 mg/dL (75-99)
[2022-03-19] MEDS ORDERED: SODIUM CHLORIDE 0.9% 500 ML 500 ML IV ONE (21:41)
[2022-03-20] MEDS: SODIUM CHLORIDE 0.9% 1,000 ML IV SCH ×2 (00:48→13:03)
[2022-03-20 07:46] LABS: Glucose,Whole Blood 148 mg/dL (75-99)
[2022-03-20] MEDS: ASPIRIN 81 MG PO SCH (08:59)
[2022-03-20] MEDS: TAMSULOSIN 0.4 MG CAP.ER.24H PO SCH (08:59)
[2022-03-20] MEDS: ESCITALOPRAM 10 MG TAB PO SCH (09:00)
[2022-03-20] MEDS: LINAGLIPTIN 5 MG TABLET PO SCH (09:00)
[2022-03-20] MEDS: FINASTERIDE 5 MG TAB PO SCH (09:00)
[2022-03-20] MEDS: ENOXAPARIN 30 MG/0.3 ML SYRINGE SQ SCH (09:00)
[2022-03-20 11:54] LABS: Basophils # (A) 0.05 X 10*3/uL (0.00-0.10); Basophils % (A) 0.5 %; Eosinophils # (A) 0.25 X 10*3/uL (0.04-0.35); Eosinophils % (A) 2.5 %; HCT 32.5 % (39.6-50.0); HGB 10.3 g/dL (13.0-17.0); Immature Grans, Automated 0.4 %; Lymphocytes # (A) 1.65 X 10*3/uL (0.90-5.00); Lymphocytes % (A) 16.2 %; MCHC 31.7 g/dL (32.0-37.0); MCV 97.9 fL (80.0-97.0); Mean Platelet Volume 9.8 fL (9.5-12.2); Monocytes % (A) 13.8 %; NRBC Per 100 WBC 0 /100 WBCS (0.0-0.0); Neutrophils # (A) 6.79 X 10*3/uL (1.80-7.70); Neutrophils % (A) 66.6 %; Platelet Count 245 X 10*3/uL (140-440); RBC 3.32 X 10*6/uL (4.40-5.60); RDW 13.1 % (11.5-14.5); WBC 10.18 X 10*3/uL (4.50-10.00)
[2022-03-20 11:58] LABS: African American GFR (CKD) 31.4 (60.0-200.0); Anion Gap 9.2 mmol/L (10.00-18.00); BUN/Creat Ratio 14.77 Ratio (12.00-20.00); Blood Urea Nitrogen 31.9 mg/dL (9.0-27.0); Calcium 8.3 mg/dL (8.7-10.3); Carbon Dioxide 20.2 mmol/L (20.0-27.5); Non-African American GFR(CKD) 27.1 (60.0-200.0); Potassium 4.6 mmol/L (3.5-5.5)
[2022-03-20 12:21] LABS: Glucose,Whole Blood 186 mg/dL (75-99)
--- NOTE | 2022-03-20 12:22 | P.PN ---
Subjective Progress Note Date: 03/20/22 Principal diagnosis: UTI Patient is a 86-year-old male with a medical history of coronary artery disease, type 2 diabetes mellitus, obstructive sleep apnea, bladder cancer who presented to the hospital with complaints of generalized weakness and inability to urinate. Patient was admitted with acute kidney injury, with a creatinine of 2.46. As well as recurrent UTI. Urology was consulted as well due to urinary retention. Ultrasound showed moderate right hydronephrosis, moderate to severe left hydronephrosis. 03/20/2022: Patient seen and examined. He states that he is feeling significantly improved with his overall symptoms he denies any nausea or vomiting no fevers or chills reported. Objective - Vital Signs Vital signs: Vital Signs Temp 97.6 F 03/20/22 07:45 Pulse 65 03/20/22 07:45 Resp 18 03/20/22 07:45 BP 127/70 03/20/22 07:45 Pulse Ox 98 03/20/22 07:45 FiO2 Intake & Output 03/19/22 03/20/22 03/20/22 18:59 06:59 18:59 Intake Total 118 300 Output Total 275 700 680 Balance -157 700 380 Weight 72.575 kg Intake: Oral 118 300 Output: Urine 275 700 680 Other: Voiding Method Indwelling Catheter Indwelling Catheter Indwelling Catheter # Bowel Movements 1 1 - Constitutional General appearance: Present: cooperative, mild distress, no acute distress - EENT Eyes: Present: EOMI, PERRLA - Respiratory Respiratory: bilateral: CTA - Cardiovascular Rhythm: regular - Gastrointestinal General gastrointestinal: Present: normal bowel sounds - Neurologic Neurologic: Present: CNII-XII intact - Musculoskeletal Musculoskeletal: Present: gait normal - Psychiatric Psychiatric: Present: A&O x's 3 - Labs CBC & Chem 7: 03/20/22 07:19 03/19/22 09:16 Labs: Abnormal Lab Results - Last 24 Hours (Table) 03/19/22 03/19/22 03/19/22 Range/Units 17:07 19:28 21:02 WBC (4.50-10.00) X 10*3/uL RBC (4.40-5.60) X 10*6/uL Hgb (13.0-17.0) g/dL Hct (39.6-50.0) % MCV (80.0-97.0) fL MCHC (32.0-37.0) g/dL Monocytes # (0.20-1.00) X 10*3/uL POC Glucose (mg/dL) 192 H 279 H (75-99) mg/dL Plasma Lactic Acid Zander 6.1 H* (0.7-2.0) mmol/L 03/20/22 03/20/22 Range/Units 07:19 07:46 WBC 10.18 H (4.50-10.00) X 10*3/uL RBC 3.32 L (4.40-5.60) X 10*6/uL Hgb 10.3 L (13.0-17.0) g/dL Hct 32.5 L (39.6-50.0) % MCV 97.9 H (80.0-97.0) fL MCHC 31.7 L (32.0-37.0) g/dL Monocytes # 1.40 H (0.20-1.00) X 10*3/uL POC Glucose (mg/dL) 148 H (75-99) mg/dL Plasma Lactic Acid Zander (0.7-2.0) mmol/L Microbiology - Last 24 Hours (Table) 03/19/22 09:16 Urine Culture - Preliminary Urine,Clean Catch Assessment and Plan Plan: UTI sepsis Leukocytosis -Patient presents with significant leukocytosis acidosis, which is improved. Patient's lactic acidosis has improved to 1.2. Patient's leukocytosis improved. -Patient is on IV antibiotics Rocephin -Final urine cultures pending Urinary retention Bilateral hydronephrosis - Acute versus chronic. Patient does have history of bladder cancer, unable to provide much information. - Obtain US kidneys and bladder stroke rule out obstruction/hydronephrosis. - urology has been consulted. We will wait further recommendations. - Aceves catheter has been placed. CELE - Secondary to sepsis and dehydration, likely prerenal versus obstructive etiology. - Bladder ultrasound reviewed. - Continue IV fluids and monitor renal function. Patient's creatinine function improved slightly today. Patient is making urine output Generalized weakness - Related to sepsis. Consult physical therapy and occupational therapy. CAD, type II DM, MICHAEL -Continue with home medication tradjenta, metoprolol, aspirin -Sliding scale Code status: Full code DVT prophylaxis: Lovenox
[2022-03-20] MEDS: INSULIN ASPART (NovoLOG) 100 UNIT/ML VIAL SQ SCH ×3 (13:03→19:47)
--- NOTE | 2022-03-20 13:06 | P.PN ---
Progress Note - Text Progress Note Date: 03/20/22 The patient states that he is feeling much better today. He slept well and reports that his appetite is good. He is afebrile with stable vital signs. His serum creatinine level today is 2.2, down from 2.46 yesterday. He is currently receiving ceftriaxone. I have asked his nurse to obtain the urine culture result done earlier this week at [facility], as this can be used as a guide to oral antibiotic therapy. As stated in my consultation note, he has developed bilateral hydronephrosis over the past year. This is suggestive of voiding dysfunction. It would be my recommendation that he be discharged home on appropriate oral antibiotics, with a Aceves catheter, and follow up with Dr. Mohr regarding the evaluation and management of his hydronephrosis.
[2022-03-20 17:00] LABS: Glucose,Whole Blood 209 mg/dL (75-99)
[2022-03-20 19:31] LABS: Glucose,Whole Blood 219 mg/dL (75-99)
[2022-03-20] MEDS: FAMOTIDINE 20 MG TAB PO SCH (19:46)
[2022-03-20] MEDS: DONEPEZIL 10 MG TAB PO SCH (19:46)
[2022-03-21] MEDS: SODIUM CHLORIDE 0.9% 1,000 ML IV SCH (04:06)
[2022-03-21] MEDS: TAMSULOSIN 0.4 MG CAP.ER.24H PO SCH (07:45)
[2022-03-21] MEDS: LINAGLIPTIN 5 MG TABLET PO SCH (07:45)
[2022-03-21] MEDS: ASPIRIN 81 MG PO SCH (07:45)
[2022-03-21] MEDS: ENOXAPARIN 30 MG/0.3 ML SYRINGE SQ SCH (07:45)
[2022-03-21] MEDS: ESCITALOPRAM 10 MG TAB PO SCH (07:46)
[2022-03-21] MEDS: FINASTERIDE 5 MG TAB PO SCH (07:46)
[2022-03-21] MEDS: INSULIN ASPART (NovoLOG) 100 UNIT/ML VIAL SQ SCH (07:50)
[2022-03-21 07:51] LABS: Glucose,Whole Blood 138 mg/dL (75-99)
[2022-03-21 08:23] VITALS: BP 150/82; PULSE 63; TEMP 97.6
[2022-03-21 09:17] LABS: African American GFR (CKD) 36.7 (60.0-200.0); Anion Gap 7.7 mmol/L (10.00-18.00); BUN/Creat Ratio 14.42 Ratio (12.00-20.00); Blood Urea Nitrogen 27.4 mg/dL (9.0-27.0); Calcium 8.1 mg/dL (8.7-10.3); Carbon Dioxide 21.3 mmol/L (20.0-27.5); Non-African American GFR(CKD) 31.7 (60.0-200.0); Potassium 4.5 mmol/L (3.5-5.5)
[2022-03-21 09:24] LABS: Basophils # (A) 0.06 X 10*3/uL (0.00-0.10); Basophils % (A) 0.7 %; Eosinophils # (A) 0.26 X 10*3/uL (0.04-0.35); Eosinophils % (A) 3.2 %; HCT 30.1 % (39.6-50.0); HGB 9.3 g/dL (13.0-17.0); Immature Grans, Automated 0.6 %; Lymphocytes # (A) 1.69 X 10*3/uL (0.90-5.00); Lymphocytes % (A) 20.7 %; MCH 30.6 pg (27.0-32.0); MCHC 30.9 g/dL (32.0-37.0); Mean Platelet Volume 10.1 fL (9.5-12.2); Monocytes % (A) 13.5 %; NRBC Per 100 WBC 0 /100 WBCS (0.0-0.0); Neutrophils % (A) 61.3 %; Platelet Count 244 X 10*3/uL (140-440); RBC 3.04 X 10*6/uL (4.40-5.60); WBC 8.16 X 10*3/uL (4.50-10.00)
--- NOTE | 2022-03-21 10:22 | P.DS ---
Providers Date of admission: 03/20/22 12:21 Attending physician: Kamilah Nixon MD Consults: 03/19/22 11:01 Consult Physician Routine Consulting Provider: Bryce Dean Consult Reason/Comments: Acute Urinary retention, h/o bladder cancer Do you want consulting provider notified?: Yes Primary care physician: [facility] Course: The patient is an 86-year-old male with a history of coronary artery disease, type 2 diabetes, and obstructive sleep apnea. He has a known history of bladder cancer, as well as voiding dysfunction. He was previously followed by Dr. Carter and is now followed by Dr. Mohr. He was seen in the ER at [facility] on 03/17/2022 and diagnosed with acute urinary retention and a UTI. A Aceves catheter was placed, and he experienced relief. Oral antibiotics were prescribed. He has a history of recurrent UTIs. A CT scan in September 2020 showed no evidence of hydronephrosis. Renal ultrasound in October 2021 showed bilateral moderate hydronephrosis, left greater than right. Patient was admitted to the hospital and treated for acute urinary tract infection. Patient was seen by the urologist here in our hospital. Patient's appetite improved he was no longer having any fever or chills. And his creatinine returned back to his baseline. I he was seen by the urologist team and recommendation was to continue on oral antibiotics and continue with Aceves catheter and follow up outpatient with urology. Patient has findings suggestive of voiding dysfunction. On day of discharge. Physical exam was performed. Discharge time was 32 minutes Plan - Discharge Summary Discharge Rx Participant: Yes New Discharge Prescriptions: New Cephalexin [Keflex] 500 mg PO Q12HR 1 Days #10 cap Continue glipiZIDE [Glucotrol] 5 mg PO BID Cyanocobalamin (Vitamin B-12) [Vitamin B-12] 1,000 mcg PO DAILY Aspirin 81 mg PO DAILY Finasteride [Proscar] 5 mg PO DAILY Famotidine 40 mg PO HS Tamsulosin HCl [Flomax] 0.8 mg PO DAILY Cholecalciferol [Vitamin D3 (25 Mcg = 1000 Iu)] 25 mcg PO DAILY Donepezil HCl [Aricept ODT] 10 mg PO HS sitaGLIPtin PHOSPHATE [Januvia] 100 mg PO DAILY Escitalopram [Lexapro] 10 mg PO DAILY Metoprolol Tartrate [Lopressor] 12.5 mg PO BID PRN PRN Reason: HIGH BLOOD PRESSURE Discontinued Sulfamethoxazole/Trimethoprim [Bactrim DS 800-160 mg] 1 tab PO BID Discharge Medication List glipiZIDE [Glucotrol] 5 mg PO BID 10/30/14 [History] Cyanocobalamin (Vitamin B-12) [Vitamin B-12] 1,000 mcg PO DAILY 04/17/17 [History] Aspirin 81 mg PO DAILY 04/20/17 [Rx] Finasteride [Proscar] 5 mg PO DAILY 12/01/18 [History] sitaGLIPtin PHOSPHATE [Januvia] 100 mg PO DAILY 01/16/21 [History] Escitalopram [Lexapro] 10 mg PO DAILY 11/18/21 [History] Famotidine 40 mg PO HS 11/18/21 [History] Metoprolol Tartrate [Lopressor] 12.5 mg PO BID PRN 11/18/21 [History] Tamsulosin HCl [Flomax] 0.8 mg PO DAILY 11/18/21 [History] Cholecalciferol [Vitamin D3 (25 Mcg = 1000 Iu)] 25 mcg PO DAILY 03/19/22 [History] Donepezil HCl [Aricept ODT] 10 mg PO HS 03/19/22 [History] Cephalexin [Keflex] 500 mg PO Q12HR 1 Days #10 cap 03/21/22 [Rx] Follow up Appointment(s)/Referral(s): Chinedu Contreras MD [Primary Care Provider] - 1-2 days Discharge Disposition: HOME SELF-CARE
--- NOTE | 2022-03-30 17:44 | CDI ---
The patient has leukocytosis, lactic acidosis, CELE, dehydration and weakness...per H&P 03/19. Based on this information and the findings below, is there an additional diagnosis that is clinically appropriate for this patient? Clinical Indicators: WBC/Left Shift: 13.8 Lactic acid: 6.1 03/19 Treatment: Antibiotics: IV cefftriaxone IV Bolus: 75ml/hr Is there an additional diagnosis that is clinically appropriate for this patient? [ ] Sepsis, present on admission [ ] Sepsis, developed during stay, not present on admission [ ] Sepsis ruled out [ ] Severe Sepsis with organ failure [ ] Septic Shock [ ] Other, please specify [ ] Unable to determine MTDD
--- NOTE | 2022-03-31 09:34 | CDI ---
Documentation Clarification Form Date: 03/30/2022 05:36:00 PM From: Jayla Hong Admit Date: 03/20/2022 12:21:00 PM Patient Name: Jasmina Butler Visit Number: [id number] Discharge Date: 03/21/2022 12:10:00 PM ATTENTION: The Clinical Documentation Specialists (CDI) and [facility] Coding Staff appreciate your assistance in clarifying documentation. Please respond to the clarification below the line at the bottom and electronically sign. The CDI & [facility] Coding staff will review the response and follow-up if needed. Please note: Queries are made part of the Legal Health Record. If you have any questions, please contact the author of this message via ITS. Dr. Frank Urias The patient has leukocytosis, lactic acidosis, CELE, dehydration and weakness...per H&P 03/19. ED documents Severe sepsis and UTI. But Sepsis is not documented elsewhere in this 2 day length of stay. Please clarify the clinical status of the dx documented in ED. History/Risk Factors: UTI Clinical Indicators: WBC/Left Shift: 13.8 Lactic acid: 6.1 03/19 Treatment: Antibiotics: IV ceftriaxone IV Bolus: 75ml/hr Please clarify the status of this diagnosis. [ ] Sepsis, present on admission [ ] Sepsis ruled out [ ] Other, please specify [ ] Unable to determine UTI with sepsis documented in the DC summary agree with UTI with sepsis POA MTDD
== END 2022-03-21 12:10 | disposition home or self-care (01) | DRG 872 ==
LOC: EC 08:29 → 6NMEDSUR 10:28 → OBSVTOIN 03-20 12:21
PROVIDERS: ADMIT Internal Medicine; ATTEND Internal Medicine
DX: A41.9 Sepsis, unspecified organism (principal); N39.0 Urinary tract infection, site not specified; E87.2 Acidosis; N17.9 Acute kidney failure, unspecified; N13.6 Pyonephrosis; E11.9 Type 2 diabetes mellitus without complications; G47.33 Obstructive sleep apnea (adult) (pediatric); I25.10 Atherosclerotic heart disease of native coronary artery without angina pectoris; E78.5 Hyperlipidemia, unspecified; E86.0 Dehydration; F32.A Depression, unspecified; F41.9 Anxiety disorder, unspecified; I10 Essential (primary) hypertension; Z79.899 Other long term (current) drug therapy; Z79.84 Long term (current) use of oral hypoglycemic drugs; Z79.82 Long term (current) use of aspirin; I25.2 Old myocardial infarction; Z85.51 Personal history of malignant neoplasm of bladder; Z87.440 Personal history of urinary (tract) infections; Z87.891 Personal history of nicotine dependence
CPT/HCPCS: 36415; 70450; 71046; 76770; 80048; 80053; 81001; 83605; 83735; 84100; 84439; 84443; 84481; 84484; 85025; 85610; 85730; 87040; 87086; 93005; 96360; 96361; 96365; 96374; 99291

== ENCOUNTER 2023-12-11 10:45 | Inpatient (IN) | payer MEDICARE, BC ==
--- NOTE | 2023-12-11 11:24 | ED ---
General Adult HPI - General Chief complaint: Shortness of Breath Stated complaint: SOB, wheezing Time Seen by Provider: 12/11/23 11:03 Source: patient, EMS, RN notes reviewed Mode of arrival: EMS Limitations: no limitations, altered mental status - History of Present Illness Initial comments: 88-year-old male presents to the emergency department for evaluation of shortness of breath. He was sent in by [facility] for evaluation. He noted increased shortness of breath with wheezing today. Patient was given a breathing treatment on the way in. He reports that this helped. He does report a cardiac history but no known pulmonary issues. Patient reports increased cough. No known fever. - Related Data Home Medications Medication Instructions Recorded Confirmed Cyanocobalamin (Vitamin B-12) 1,000 mcg PO DAILY 04/17/17 12/11/23 [Vitamin B-12] Finasteride [Proscar] 5 mg PO DAILY 12/01/18 12/11/23 Tamsulosin HCl [Flomax] 0.4 mg PO BID 11/18/21 12/11/23 Cholecalciferol [Vitamin D3 (25 25 mcg PO DAILY 03/19/22 12/11/23 Mcg = 1000 Iu)] Acetaminophen/Diphenhydramine 2 tab PO HS 12/11/23 12/11/23 [Tylenol PM 500-25mg] Atorvastatin [Lipitor] 10 mg PO HS 12/11/23 12/11/23 Betamethasone Dipropionate 1 applic TOPICAL DAILY 12/11/23 12/11/23 [Diprolene 0.05% Ointment] Dextran/Hypromellose/Glycerin 2 drop BOTH EYES Q12H 12/11/23 12/11/23 [Genteal Tears 0.1%-0.2%-0.3%] Donepezil [Aricept] 10 mg PO HS 12/11/23 12/11/23 Escitalopram [Lexapro] 10 mg PO DAILY 12/11/23 12/11/23 Famotidine [Pepcid] 40 mg PO DAILY 12/11/23 12/11/23 Ferrous Sulfate [Feosol] 325 mg PO DAILY 12/11/23 12/11/23 Ibuprofen [Motrin] 600 mg PO DAILY 12/11/23 12/11/23 L.acidoph,Paracasei, B.lactis 1 cap PO BID 12/11/23 12/11/23 [Probiotic] Magnesium Hydroxide [Milk of 7,200 mg PO Q48H PRN 12/11/23 12/11/23 Magnesia Concentrate] Na Phos,M-B/Na Phos,Di-Ba [Fleet 133 ml RECTAL DAILY PRN 12/11/23 12/11/23 Adult] Ocusoft Lid Scrub Original 1 applic BOTH EYES HS 12/11/23 12/11/23 External Pad (Eyelid Cleansers) Ondansetron [Zofran] 4 mg PO Q6H PRN 12/11/23 12/11/23 Sennosides-Docusate Sodium 2 tab PO BID 12/11/23 12/11/23 [Senokot-S] Triamcinolone 0.1% Cream [Kenalog 1 applicatio TOPICAL BID 12/11/23 12/11/23 0.1% Cream] bisacodyL [Dulcolax] 10 mg RECTAL DAILY PRN 12/11/23 12/11/23 glipiZIDE [Glucotrol] 10 mg PO BID 12/11/23 12/11/23 Previous Rx's Medication Instructions Recorded Aspirin 81 mg PO DAILY 04/20/17 Allergies Allergy/AdvReac Type Severity Reaction Status Date / Time No Known Allergies Allergy Verified 12/11/23 13:54 Review of Systems ROS Statement: Those systems with pertinent positive or pertinent negative responses have been documented in the HPI. ROS Other: All systems not noted in ROS Statement are negative. Past Medical History Past Medical History: Coronary Artery Disease (CAD), Cancer, CVA/TIA, Diabetes Mellitus, Hyperlipidemia, Hypertension, Myocardial Infarction (MO), Prostate Disorder, Sleep Apnea/CPAP/BIPAP, Vascular Disorder Additional Past Medical History / Comment(s): TIA in 2014, MICHAEL without device, CKD stage III, chronic low back pain, migraines in past, vertigo, balance issues, falls, BPH, benign colon polyp, diverticular disease, vascular disease with surgery-AAA repair and R leg bypass, skin cancer with removal, superficial bladder cancer Last Myocardial Infarction Date:: 04/17/17 History of Any Multi-Drug Resistant Organisms: None Reported Past Surgical History: Adenoidectomy, Heart Catheterization With Stent, Tons illectomy Additional Past Surgical History / Comment(s): 12/07/18 endovascular repair/stent graft infra renal aorta, R leg bypass surgery after AAA repair at [facility], colonoscopy/polypectomy, basal cell cancer removed from forehead, bilateral cataract removals/lens implants, cystoscopy -biopsy for cancer Past Anesthesia/Blood Transfusion Reactions: Motion Sickness Additional Past Anesthesia/Blood Transfusion Reaction / Comment(s): . Date of Last Stent Placement:: 03/2017 Past Psychological History: Anxiety, Depression Smoking Status: Former smoker Past Alcohol Use History: None Reported Past Drug Use History: None Reported - Past Family History Brother(s) Family Medical History: No Reported History Sister(s) Family Medical History: No Reported History Son(s) Family Medical History: No Reported History Father Family Medical History: Diabetes Mellitus, Myocardial Infarction (MO), Vascular Disorder Additional Family Medical History / Comment(s): Father of a MO at the age of 76 or 77yrs. He was an alcoholic. Mother Family Medical History: Deep Vein Thrombosis (DVT), Pulmonary Embolus Additional Family Medical History / Comment(s): Mother at 42 yrs of age of "blood clot" in the lung and it went to the heart. General Exam Limitations: altered mental status General appearance: alert, in no apparent distress Head exam: Present: atraumatic, normocephalic, normal inspection Eye exam: Present: normal appearance, PERRL, EOMI. Absent: scleral icterus, conjunctival injection, periorbital swelling ENT exam: Present: normal exam, mucous membranes moist Neck exam: Present: normal inspection. Absent: tenderness, meningismus, lymphadenopathy Respiratory exam: Present: normal lung sounds bilaterally. Absent: respiratory distress, wheezes, rales, rhonchi, stridor Cardiovascular Exam: Present: normal rhythm, tachycardia, normal heart sounds. Absent: systolic murmur, diastolic murmur, rubs, gallop, clicks GI/Abdominal exam: Present: soft, normal bowel sounds. Absent: distended, tenderness, guarding, rebound, rigid Extremities exam: Present: normal inspection, full ROM, normal capillary refill. Absent: tenderness, pedal edema, joint swelling, calf tenderness Back exam: Present: normal inspection Neurological exam: Present: alert Psychiatric exam: Present: normal affect, normal mood Skin exam: Present: warm, dry, intact, normal color. Absent: rash Course Vital Signs 0212/11/23 12/11/23 10:50 10:54 13:10 Temperature 97.4 F L Pulse Rate 105 H 108 H Pulse Rate [ Left] Respiratory 22 22 22 Rate Blood Pressure 174/92 140/86 Blood Pressure [Left Arm] O2 Sat by Pulse 93 L 91 L Oximetry 12/11/23 12/11/23 12/11/23 13:12 13:21 15:45 Temperature Pulse Rate 104 H 107 H 81 Pulse Rate [ Left] Respiratory 20 Rate Blood Pressure 139/85 Blood Pressure [Left Arm] O2 Sat by Pulse 94 L Oximetry 12/11/23 12/11/23 12/11/23 18:17 19:49 20:00 Temperature 97.7 F Pulse Rate 81 74 Pulse Rate [ 76 Left] Respiratory 18 19 18 Rate Blood Pressure 146/93 144/88 Blood Pressure 158/88 [Left Arm] O2 Sat by Pulse 96 97 96 Oximetry Medical Decision Making - Medical Decision Making Was pt. sent in by a medical professional or institution (, [place], [facility], urgent care, hospital, or long-term...) When possible be specific @ -Rukhsana Did you speak to anyone other than the patient for history (EMS, parent, family, police, friend...)? What history was obtained from this source @ -family Did you review nursing and triage notes (agree or disagree)? Why? @ -I reviewed and agree with nursing and triage notes Were old charts reviewed (outside hosp., previous admission, EMS record, old EKG, old radiological studies, urgent care reports/EKG's, long-term records)? Report findings @ -No old charts were reviewed Differential Diagnosis (chest pain, altered mental status, abdominal pain women, abdominal pain men, vaginal bleeding, weakness, fever, dyspnea, syncope, headache, dizziness, GI bleed, back pain, seizure, CVA, palpatations, mental health, musculoskeletal)? @ -Differential Dyspnea: Coronary syndrome, arrhythmia, tamponade, asthma, COPD, pulmonary embolism, pneumonia, pneumothorax, pulmonary effusion, anaphylaxis, diabetic ketoacidosis, flailed chest, pulmonary contusion, diaphragmatic rupture, anemia, neuromuscular, this is not meant to be an all-inclusive list. EKG interpreted by me (3pts min.). @ -EKG at 1132 shows sinus tachycardia rate 103, OR 211, QRS 94, QTQTc [id number] X-rays interpreted by me (1pt min.). @ -Chest x-ray shows no acute process CT interpreted by me (1pt min.). @ -CT chest for PE shows no acute pulmonary embolism U/S interpreted by me (1pt. min.). @ -None done What testing was considered but not performed or refused? (CT, X-rays, U/S, labs)? Why? @ -None What meds were considered but not given or refused? Why? @ -None Did you discuss the management of the patient with other professionals (professionals i.e. , PA, [facility], lab, RT, psych nurse, social sciences professor, work from home, teacher, senior officer, spring encaser)? Give summary @ -Management discussed with Dr. Gan who is accepting of the admission Was smoking cessation discussed for >3mins.? @ -No Was critical care preformed (if so, how long)? @ -No Were there social determinants of health that impacted care today? How? (Homelessness, low income, unemployed, alcoholism, drug addiction, transportation, low edu. Level, literacy, decrease access to med. care, care home, rehab)? @ -No Was there de-escalation of care discussed even if they declined (Discuss DNR or withdrawal of care, Hospice)? DNR status @ -No What co-morbidities impacted this encounter? (DM, HTN, Smoking, COPD, CAD, Cancer, CVA, ARF, Chemo, Hep., AIDS, mental health diagnosis, sleep apnea, morbid obesity)? @ -Dementia, CKD Was patient admitted / discharged? Hospital course, mention meds given and route, prescriptions, significant lab abnormalities, going to OR and other pertinent info. @ -Admitted. Patient presented to the emergency department for evaluation of shortness of breath and wheezing. Symptoms were noticed today by his long-term staff. Patient reports that he has felt shaky and weak. Laboratory studies obtained. CBC shows WBC of 12.8, hemoglobin 12.9; normal coagulation studies; sodium 133, testing 4.8, creatinine 1.72 which is baseline for the patient, negative troponin. COVID, influenza, RSV negative. Patient was reevaluated and I spoke with the family. They are concerned about him having a urinary tract infection. UA was sent. Patient has large blood, large leukocyte esterase, WBC clumps. Patient was given 2 g of Rocephin and 1 L normal saline followed with 130 cc/h. Patient meets sepsis criteria with tachycardia and WBC of 12.9 with a source of urinary tract infection, diagnosed at 1640. Patient started on 2 g Rocephin, gentle fluid resuscitation based on patient's history of CKD and prior fluid overload state. Patient will be admitted for urosepsis. Case discussed with Dr. Gan who is accepting of the admission. Undiagnosed new problem with uncertain prognosis? @ -No Drug Therapy requiring intensive monitoring for toxicity (Heparin, Nitro, Insulin, Cardizem)? @ -No Were any procedures done? @ -No Diagnosis/symptom? @ -UTI, sepsis Acute, or Chronic, or Acute on Chronic? @ -Default Uncomplicated (without systemic symptoms) or Complicated (systemic symptoms)? @ -Default Side effects of treatment? @ -No Exacerbation, Progression, or Severe Exacerbation? @ -No Poses a threat to life or bodily function? How? (Chest pain, USA, MO, pneumonia, PE, COPD, DKA, ARF, appy, cholecystitis, CVA, Diverticulitis, Homicidal, Suicidal, threat to staff... and all critical care pts) @ -No - Lab Data Result diagrams: 12/11/23 11:50 12/11/23 11:50 Lab Results 12/11/23 12/11/23 12/11/23 Range/Units 11:50 11:50 11:50 WBC 12.8 H (3.8-10.6) k/uL RBC 4.00 L (4.30-5.90) m/uL Hgb 12.9 L (13.0-17.5) gm/dL Hct 39.3 (39.0-53.0) % MCV 98.3 (80.0-100.0) fL MCH 32.2 (25.0-35.0) pg MCHC 32.7 (31.0-37.0) g/dL RDW 12.3 (11.5-15.5) % Plt Count 232 (150-450) k/uL MPV 7.4 Neutrophils % 91 % Lymphocytes % 4 % Monocytes % 4 % Eosinophils % 0 % Basophils % 0 % Neutrophils # 11.6 H (1.3-7.7) k/uL Lymphocytes # 0.5 L (1.0-4.8) k/uL Monocytes # 0.5 (0-1.0) k/uL Eosinophils # 0.0 (0-0.7) k/uL Basophils # 0.0 (0-0.2) k/uL PT 11.0 (10.0-12.5) sec INR 1.0 (<1.2) APTT 23.2 (22.0-30.0) sec Sodium 133 L (137-145) mmol/L Potassium 4.8 (3.5-5.1) mmol/L Chloride 102 (98-107) mmol/L Carbon Dioxide 23 (22-30) mmol/L Anion Gap 8 mmol/L BUN 27 H (9-20) mg/dL Creatinine 1.72 H (0.66-1.25) mg/dL Est GFR (CKD-EPI)AfAm 41 (>60 ml/min/1.73 sqM) Est GFR (CKD-EPI)NonAf 35 (>60 ml/min/1.73 sqM) Glucose 235 H (74-99) mg/dL Calcium 8.8 (8.4-10.2) mg/dL Magnesium 1.5 L (1.6-2.3) mg/dL Total Bilirubin 0.6 (0.2-1.3) mg/dL AST 35 (17-59) U/L ALT 45 (4-49) U/L Alkaline Phosphatase 114 (38-126) U/L Troponin I (0.000-0.034) ng/mL Total Protein 6.5 (6.3-8.2) g/dL Albumin 3.1 L (3.5-5.0) g/dL Urine Color Urine Appearance (Clear) Urine pH (5.0-8.0) Ur Specific Cl[place] (1.001-1.035) Urine Protein (Negative) Urine Glucose (UA) (Negative) Urine Ketones (Negative) Urine Blood (Negative) Urine Nitrite (Negative) Urine Bilirubin (Negative) Urine Urobilinogen (<2.0) mg/dL Ur Leukocyte Esterase (Negative) Urine RBC (0-5) /hpf Urine WBC (0-5) /hpf Urine WBC Clumps (None) /hpf Urine Bacteria (None) /hpf Urine Mucus (None) /hpf Influenza Type A (PCR) (Not Detectd) Influenza Type B (PCR) (Not Detectd) RSV (PCR) (Not Detectd) SARS-CoV-2 (PCR) (Not Detectd) 12/11/23 12/11/23 12/11/23 Range/Units 11:50 11:50 15:06 WBC (3.8-10.6) k/uL RBC (4.30-5.90) m/uL Hgb (13.0-17.5) gm/dL Hct (39.0-53.0) % MCV (80.0-100.0) fL MCH (25.0-35.0) pg MCHC (31.0-37.0) g/dL RDW (11.5-15.5) % Plt Count (150-450) k/uL MPV Neutrophils % % Lymphocytes % % Monocytes % % Eosinophils % % Basophils % % Neutrophils # (1.3-7.7) k/uL Lymphocytes # (1.0-4.8) k/uL Monocytes # (0-1.0) k/uL Eosinophils # (0-0.7) k/uL Basophils # (0-0.2) k/uL PT (10.0-12.5) sec INR (<1.2) APTT (22.0-30.0) sec Sodium (137-145) mmol/L Potassium (3.5-5.1) mmol/L Chloride (98-107) mmol/L Carbon Dioxide (22-30) mmol/L Anion Gap mmol/L BUN (9-20) mg/dL Creatinine (0.66-1.25) mg/dL Est GFR (CKD-EPI)AfAm (>60 ml/min/1.73 sqM) Est GFR (CKD-EPI)NonAf (>60 ml/min/1.73 sqM) Glucose (74-99) mg/dL Calcium (8.4-10.2) mg/dL Magnesium (1.6-2.3) mg/dL Total Bilirubin (0.2-1.3) mg/dL AST (17-59) U/L ALT (4-49) U/L Alkaline Phosphatase (38-126) U/L Troponin I <0.012 (0.000-0.034) ng/mL Total Protein (6.3-8.2) g/dL Albumin (3.5-5.0) g/dL Urine Color Light Yellow Urine Appearance Cloudy (Clear) Urine pH 6.0 (5.0-8.0) Ur Specific [place] 1.024 (1.001-1.035) Urine Protein 1+ H (Negative) Urine Glucose (UA) 2+ H (Negative) Urine Ketones Negative (Negative) Urine Blood Large H (Negative) Urine Nitrite Negative (Negative) Urine Bilirubin Negative (Negative) Urine Urobilinogen <2.0 (<2.0) mg/dL Ur Leukocyte Esterase Large H (Negative) Urine RBC 156 H (0-5) /hpf Urine WBC 178 H (0-5) /hpf Urine WBC Clumps Occasional H (None) /hpf Urine Bacteria Occasional H (None) /hpf Urine Mucus Rare H (None) /hpf Influenza Type A (PCR) Not Detected (Not Detectd) Influenza Type B (PCR) Not Detected (Not Detectd) RSV (PCR) Not Detected (Not Detectd) SARS-CoV-2 (PCR) Not Detected (Not Detectd) Disposition Clinical Impression: UTI (urinary tract infection), Sepsis Disposition: ADMITTED IP TO THIS HOSP Condition: Stable Is patient prescribed a controlled substance at d/c from ED?: No
[2023-12-11 12:01] LABS: Basophils % (A) 0 %; Eosinophils % (A) 0 %; HCT 39.3 % (39.0-53.0); HGB 12.9 gm/dL (13.0-17.5); Lymphocytes # (A) 0.5 k/uL (1.0-4.8); Lymphocytes % (A) 4 %; MCH 32.2 pg (25.0-35.0); MCHC 32.7 g/dL (31.0-37.0); MCV 98.3 fL (80.0-100.0); Mean Platelet Volume 7.4; Monocytes # (A) 0.5 k/uL (0-1.0); Monocytes % (A) 4 %; Neutrophils # (A) 11.6 k/uL (1.3-7.7); Neutrophils % (A) 91 %; Platelet Count 232 k/uL (150-450); RDW 12.3 % (11.5-15.5); WBC 12.8 k/uL (3.8-10.6)
[2023-12-11 12:14] LABS: ALT 45 U/L (4-49); AST 35 U/L (17-59); African American GFR (CKD) 41 (>60 ml/min/1.73 sqM); Albumin 3.1 g/dL (3.5-5.0); Alkaline Phosphatase 114 U/L (38-126); Anion Gap 8 mmol/L; Blood Urea Nitrogen 27 mg/dL (9-20); Calcium 8.8 mg/dL (8.4-10.2); Carbon Dioxide 23 mmol/L (22-30); Chloride 102 mmol/L (98-107); Glucose 235 mg/dL (74-99); Magnesium 1.5 mg/dL (1.6-2.3); Non-African American GFR(CKD) 35 (>60 ml/min/1.73 sqM); Partial Thromboplastin Time 23.2 sec (22.0-30.0); Potassium 4.8 mmol/L (3.5-5.1); Sodium 133 mmol/L (137-145); Total Bilirubin 0.6 mg/dL (0.2-1.3); Total Protein 6.5 g/dL (6.3-8.2)
--- NOTE | 2023-12-11 12:46 | XR ---
EXAMINATION TYPE: XR chest 2V DATE OF EXAM: 12/11/2023 12:02 PM CLINICAL INDICATION:Male, 88 years old with history of difficulty breathing; [facility] COMPARISON: Chest radiographs from 03/19/2022 TECHNIQUE: XR chest 2V Frontal and lateral views of the chest. FINDINGS: Lungs/Pleura: There is no evidence of pleural effusion, focal consolidation, or pneumothorax. Pulmonary vascularity: Unremarkable. Heart/mediastinum: Cardiomediastinal silhouette is unremarkable. Musculoskeletal: No acute osseous pathology. IMPRESSION: No acute cardiopulmonary disease/process.
[2023-12-11] MEDS: methylPREDNISolone SOD SUCCI 125 MG/2 ML VIAL IV STA (13:07)
[2023-12-11] MEDS: IPRATROPIUM-ALBUTEROL 3 ML NEB INHALATION STA (13:12)
--- NOTE | 2023-12-11 14:21 | CT ---
EXAMINATION TYPE: CT chest angio for PE CT DLP: 350.7 mGycm, Automated exposure control for dose reduction was used. DATE OF EXAM: 12/11/2023 1:58 PM COMPARISON: Chest radiograph from same day. 11/04/2018 CLINICAL INDICATION:Male, 88 years old with history of sob, tachy, increased rr; SOB TECHNIQUE/CONTRAST: CTA scan of the thorax is performed with IV Contrast, patient injected with 80 mL of Isovue 300, MIP images are created and reviewed these are created on a separate workstation.. FINDINGS: Pulmonary Artery: There is no evidence for a filling defect within the pulmonary vasculature to sugge st acute pulmonary embolism. The pulmonary artery is of normal size. Lungs/Pleura: No evidence of focal consolidation, pleural effusion or pneumothorax. Airway: Large airways are patent. Heart: Heart is within normal limits for size. Vasculature: No evidence of aortic aneurysm. Acute angle of the celiac axis with poststenotic dilatat ion of the celiac axis. Series 3 image 110 Mediastinum: No gross evidence of adenopathy. Musculoskeletal: No acute osseous abnormalities Soft Tissues: Unremarkable. Lower neck: No significant findings. Upper Abdomen: Atrophic left kidney. Partially visualized stent grafts in the abdomen. IMPRESSION: 1. No evidence of pulmonary embolism. 2. 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
[2023-12-11 15:22] LABS: Appearance,Urine Cloudy (Clear); Bacteria,Urine Occasional /hpf; Bilirubin,Urine Negative (Negative); Blood,Urine Large (Negative); Color,Urine Light Yellow; Glucose,Urine (UA) 2+ (Negative); Ketones,Urine Negative (Negative); Leukocyte Esterase,Urine Large (Negative); Mucus,Urine Rare /hpf; Nitrite,Urine Negative (Negative); Protein,Urine 1+ (Negative); RBC,Urine 156 /hpf (0-5); Specific Gravity,Urine 1.024 (1.001-1.035); Urobilinogen,Urine <2.0 mg/dL (<2.0); WBC,Urine 178 /hpf (0-5)
[2023-12-11] MEDS: SODIUM CHLORIDE 0.9% 1,000 ML IV ONE (15:55)
[2023-12-11] MEDS ORDERED: NALOXONE 0.4 MG/ML 1 ML VIAL IV PRN (16:31)
[2023-12-11] MEDS ORDERED: ONDANSETRON 4 MG/2 ML VIAL IVP PRN (16:31)
[2023-12-11] MEDS ORDERED: ACETAMINOPHEN TAB 325 MG TAB PO PRN (16:31)
[2023-12-11] MEDS: SODIUM CHLORIDE 0.9% 1,000 ML IV SCH (18:22)
[2023-12-11 20:38] LABS: Glucose,Whole Blood 262 mg/dL (70-110)
[2023-12-11] MEDS ORDERED: bisacodyL 10 MG SUPP RECTAL PRN (20:50)
[2023-12-11] MEDS ORDERED: ONDANSETRON 4 MG TAB PO PRN (20:50)
[2023-12-11] MEDS ORDERED: NA PHOS,M-B/NA PHOS,DI-BA 133 ML ENEMA RECTAL PRN (20:50)
[2023-12-11] MEDS ORDERED: MAGNESIUM HYDROXIDE 2,400 MG/30 ML CUP PO PRN (20:50)
[2023-12-11] MEDS ORDERED: [UNRECOGNIZED DRUG - OTHER] BOTH EYES SCH (21:00)
[2023-12-11] MEDS: ARTIFICIAL TEARS-HYPROMELLOSE DROPS 15 ML BTL BOTH EYES SCH (21:58)
[2023-12-11] MEDS: SENNOSIDES-DOCUSATE SODIUM 1 EACH TAB PO SCH (21:58)
[2023-12-11] MEDS: DONEPEZIL 10 MG TAB PO SCH (21:58)
[2023-12-11] MEDS: ATORVASTATIN 10 MG TAB PO SCH (21:59)
[2023-12-11] MEDS: TAMSULOSIN 0.4 MG CAP.ER.24H PO SCH (22:02)
[2023-12-11] MEDS: LACTOBACILLUS ACIDOPHILUS/PECT 1 EACH CAPSULE PO SCH (22:03)
[2023-12-11] MEDS: glipiZIDE 10 MG TAB PO SCH (22:04)
[2023-12-11] MEDS: diphenhydrAMINE 25 MG CAP PO SCH (22:29)
[2023-12-11] MEDS: ACETAMINOPHEN TAB 500 MG TAB PO SCH (23:34)
[2023-12-12 07:02] LABS: Glucose,Whole Blood 217 mg/dL (70-110)
[2023-12-12] MEDS: CYANOCOBALAMIN 500 MCG TAB PO SCH (08:57)
[2023-12-12] MEDS: FAMOTIDINE 20 MG TAB PO SCH (08:57)
[2023-12-12] MEDS: ESCITALOPRAM 10 MG TAB PO SCH (08:57)
[2023-12-12] MEDS: CHOLECALCIFEROL 25 MCG (1000 IU) TABLET PO SCH (08:57)
[2023-12-12] MEDS: FERROUS SULFATE 325 MG TAB PO SCH (08:58)
[2023-12-12] MEDS: ASPIRIN 81 MG PO SCH (08:58)
[2023-12-12] MEDS: FINASTERIDE 5 MG TAB PO SCH (08:58)
[2023-12-12 11:00] LABS: HCT 36.3 % (39.6-50.0); HGB 11.7 g/dL (13.0-17.0); MCH 31.3 pg (27.0-32.0); MCHC 32.2 g/dL (32.0-37.0); MCV 97.1 FL (80.0-97.0); Mean Platelet Volume 9.8 FL (9.5-12.2); NRBC Per 100 WBC 0 X 10*3/uL (0.00-0.01); Platelet Count 230 X 10*3/uL (140-440); RBC 3.74 X 10*6/uL (4.40-5.60); RDW 12.2 % (11.5-14.5); WBC 8.72 X 10*3/uL (4.50-10.00)
[2023-12-12 11:10] LABS: ALT 40 U/L (10-49); AST 21 U/L (14-35); Albumin 2.9 g/dL (3.8-4.9); Albumin/Globulin Ratio 0.97 Ratio (1.60-3.17); Alkaline Phosphatase 86 U/L (41-126); BUN/Creat Ratio 15.62 Ratio (12.00-20.00); Calcium 8.8 mg/dL (8.7-10.3); Carbon Dioxide 21.1 mmol/L (21.6-31.8); Chloride 101 mmol/L (96-109); Glucose 244 mg/dL (70-110); Potassium 4.7 mmol/L (3.5-5.5); Sodium 133 mmol/L (135-145); Total Bilirubin <0.2 mg/dL (0.3-1.2); Total Protein 5.9 g/dL (6.2-8.2)
[2023-12-12 12:27] LABS: Glucose,Whole Blood 301 mg/dL (70-110)
[2023-12-12] MEDS: INSULIN ASPART (NovoLOG) 100 UNIT/ML VIAL SQ SCH (12:49)
[2023-12-12 16:53] LABS: Glucose,Whole Blood 246 mg/dL (70-110)
--- NOTE | 2023-12-12 18:09 | P.GSCN ---
History of Present Illness Consult date: 12/12/23 Reason for Consult: UTI Requesting physician: Chinedu Gan History of present illness: The patient is an 88-year-old white male known to our service. He has a history of bladder cancer and was last seen by Dr. Mohr in March 2022. He underwent transurethral resection of bladder tumor in September 2020, revealing high-grade, noninvasive urothelial carcinoma. Ultrasound in February 2022 showed mild to moderate right hydronephrosis, moderate to severe left hydronephrosis. Patient was found to have a small capacity bladder. A trial of Myrbetriq was unsuccessful. Although he had a history of urinary retention, it appears that a Aceves catheter was placed for management of lower urinary tract symptoms and incontinence. The patient states that he has had an indwelling Aceves catheter for almost 2 years. It was initially changed on a monthly basis, but now biweekly to reduce the risk of UTIs. It appears that his most recent cystoscopy was in October 2021. Review of Systems - Constitutional Denies chills, Denies fever - Respiratory Reports dyspnea - Gastrointestinal Reports nausea - Genitourinary Denies dysuria, Denies hematuria Past Medical History Past Medical History: Coronary Artery Disease (CAD), Cancer, CVA/TIA, Diabetes Mellitus, Hyperlipidemia, Hypertension, Myocardial Infarction ([place]), Prostate Disorder, Sleep Apnea/CPAP/BIPAP, Vascular Disorder Additional Past Medical History / Comment(s): TIA in 2014, MICHAEL without device, CKD stage III, chronic low back pain, migraines in past, vertigo, balance issue s, falls, BPH, benign colon polyp, diverticular disease, vascular disease with surgery-AAA repair and R leg bypass, skin cancer with removal, superficial bladder cancer Last Myocardial Infarction Date:: 04/17/17 History of Any Multi-Drug Resistant Organisms: None Reported Past Surgical History: Adenoidectomy, Heart Catheterization With Stent, Tonsillectomy Additional Past Surgical History / Comment(s): 12/07/18 endovascular repair/stent graft infra renal aorta, R leg bypass surgery after AAA repair at [facility], colonoscopy/polypectomy, basal cell cancer removed from forehead, bilateral cataract removals/lens implants, cystoscopy -biopsy for cancer Past Anesthesia/Blood Transfusion Reactions: Motion Sickness Additional Past Anesthesia/Blood Transfusion Reaction / Comm: . Date of Last Stent Placement:: 03/2017 Past Psychological History: Anxiety, Depression Smoking Status: Former smoker Past Alcohol Use History: None Reported Past Drug Use History: None Reported - Past Family History Brother(s) Family Medical History: No Reported History Sister(s) Family Medical History: No Reported History Son(s) Family Medical History: No Reported History Father Family Medical History: Diabetes Mellitus, Myocardial Infarction ([place]), Vascular Disorder Additional Family Medical History / Comment(s): Father of a [place] at the age of 76 or 77yrs. He was an alcoholic. Mother Family Medical History: Deep Vein Thrombosis (DVT), Pulmonary Embolus Additional Family Medical History / Comment(s): Mother at 42 yrs of age of "blood clot" in the lung and it went to the heart. Medications and Allergies Home Medications Medication Instructions Recorded Confirmed Type Cyanocobalamin (Vitamin B-12) 1,000 mcg PO DAILY 04/17/17 12/11/23 History [Vitamin B-12] Aspirin 81 mg PO DAILY 04/20/17 12/11/23 Rx Finasteride [Proscar] 5 mg PO DAILY 12/01/18 12/11/23 History Tamsulosin HCl [Flomax] 0.4 mg PO BID 11/18/21 12/11/23 History Cholecalciferol [Vitamin D3 (25 25 mcg PO DAILY 03/19/22 12/11/23 History Mcg = 1000 Iu)] Acetaminophen/Diphenhydramine 2 tab PO HS 12/11/23 12/11/23 History [Tylenol PM 500-25mg] Atorvastatin [Lipitor] 10 mg PO HS 12/11/23 12/11/23 History Betamethasone Dipropionate 1 applic TOPICAL DAILY 12/11/23 12/11/23 History [Diprolene 0.05% Ointment] Dextran/Hypromellose/Glycerin 2 drop BOTH EYES Q12H 12/11/23 12/11/23 History [Genteal Tears 0.1%-0.2%-0.3%] Donepezil [Aricept] 10 mg PO HS 12/11/23 12/11/23 History Escitalopram [Lexapro] 10 mg PO DAILY 12/11/23 12/11/23 History Famotidine [Pepcid] 40 mg PO DAILY 12/11/23 12/11/23 History Ferrous Sulfate [Feosol] 325 mg PO DAILY 12/11/23 12/11/23 History Ibuprofen [Motrin] 600 mg PO DAILY 12/11/23 12/11/23 History L.acidoph,Paracasei, B.lactis 1 cap PO BID 12/11/23 12/11/23 History [Probiotic] Magnesium Hydroxide [Milk of 7,200 mg PO Q48H PRN 12/11/23 12/11/23 History Magnesia Concentrate] Na Phos,M-B/Na Phos,Di-Ba [Fleet 133 ml RECTAL DAILY PRN 12/11/23 12/11/23 History Adult] Ocusoft Lid Scrub Original 1 applic BOTH EYES HS 12/11/23 12/11/23 History External Pad (Eyelid Cleansers) Ondansetron [Zofran] 4 mg PO Q6H PRN 12/11/23 12/11/23 History Sennosides-Docusate Sodium 2 tab PO BID 12/11/23 12/11/23 History [Senokot-S] Triamcinolone 0.1% Cream [Kenalog 1 applicatio TOPICAL BID 12/11/23 12/11/23 History 0.1% Cream] bisacodyL [Dulcolax] 10 mg RECTAL DAILY PRN 12/11/23 12/11/23 History glipiZIDE [Glucotrol] 10 mg PO BID 12/11/23 12/11/23 History Allergies Allergy/AdvReac Type Severity Reaction Status Date / Time No Known Allergies Allergy Verified 12/11/23 13:54 Surgical - Exam Vital Signs Temp Pulse Resp BP Pulse Ox 97.4 F L 105 H 22 174/92 93 L 12/11/23 10:50 12/11/23 10:50 12/11/23 10:50 12/11/23 10:50 12/11/23 10:50 - General well developed, well nourished, no distress - Respiratory normal respiratory effort - Abdomen Abdomen: soft, non tender, no guarding, no rigid, no rebound - Genitourinary The penis is normal. The urethral meatus is normal. A Aceves catheter is in place, draining clear yellow urine. The scrotum and testes are normal. - Psychiatric oriented to time, oriented to person, oriented to place, speech is normal, memory intact Results - Labs 12/12/23 06:45 12/12/23 06:45 Abnormal Lab Results - Last 24 Hours (Table) 12/11/23 12/11/23 12/11/23 Range/Units 11:50 11:50 15:06 WBC 12.8 H (3.8-10.6) k/uL RBC 4.00 L (4.30-5.90) m/uL Hgb 12.9 L (13.0-17.5) gm/dL Neutrophils # 11.6 H (1.3-7.7) k/uL Lymphocytes # 0.5 L (1.0-4.8) k/uL Sodium 133 L (137-145) mmol/L BUN 27 H (9-20) mg/dL Creatinine 1.72 H (0.66-1.25) mg/dL Glucose 235 H (74-99) mg/dL POC Glucose (mg/dL) (70-110) mg/dL Magnesium 1.5 L (1.6-2.3) mg/dL Albumin 3.1 L (3.5-5.0) g/dL Urine Protein 1+ H (Negative) Urine Glucose (UA) 2+ H (Negative) Urine Blood Large H (Negative) Ur Leukocyte Esterase Large H (Negative) Urine RBC 156 H (0-5) /hpf Urine WBC 178 H (0-5) /hpf Urine WBC Clumps Occasional H (None) /hpf Urine Bacteria Occasional H (None) /hpf Urine Mucus Rare H (None) /hpf 12/11/23 12/12/23 Range/Units 20:35 07:01 WBC (3.8-10.6) k/uL RBC (4.30-5.90) m/uL Hgb (13.0-17.5) gm/dL Neutrophils # (1.3-7.7) k/uL Lymphocytes # (1.0-4.8) k/uL Sodium (137-145) mmol/L BUN (9-20) mg/dL Creatinine (0.66-1.25) mg/dL Glucose (74-99) mg/dL POC Glucose (mg/dL) 262 H 217 H (70-110) mg/dL Magnesium (1.6-2.3) mg/dL Albumin (3.5-5.0) g/dL Urine Protein (Negative) Urine Glucose (UA) (Negative) Urine Blood (Negative) Ur Leukocyte Esterase (Negative) Urine RBC (0-5) /hpf Urine WBC (0-5) /hpf Urine WBC Clumps (None) /hpf Urine Bacteria (None) /hpf Urine Mucus (None) /hpf Diabetes panel 12/11/23 Range/Units 11:50 Sodium 133 L (137-145) mmol/L Potassium 4.8 (3.5-5.1) mmol/L Chloride 102 (98-107) mmol/L Carbon Dioxide 23 (22-30) mmol/L BUN 27 H (9-20) mg/dL Creatinine 1.72 H (0.66-1.25) mg/dL Glucose 235 H (74-99) mg/dL Calcium 8.8 (8.4-10.2) mg/dL AST 35 (17-59) U/L ALT 45 (4-49) U/L Alkaline Phosphatase 114 (38-126) U/L Total Protein 6.5 (6.3-8.2) g/dL Albumin 3.1 L (3.5-5.0) g/dL Calcium panel 12/11/23 Range/Units 11:50 Calcium 8.8 (8.4-10.2) mg/dL Albumin 3.1 L (3.5-5.0) g/dL Pituitary panel 12/11/23 Range/Units 11:50 Sodium 133 L (137-145) mmol/L Potassium 4.8 (3.5-5.1) mmol/L Chloride 102 (98-107) mmol/L Carbon Dioxide 23 (22-30) mmol/L BUN 27 H (9-20) mg/dL Creatinine 1.72 H (0.66-1.25) mg/dL Glucose 235 H (74-99) mg/dL Calcium 8.8 (8.4-10.2) mg/dL Adrenal panel 12/11/23 Range/Units 11:50 Sodium 133 L (137-145) mmol/L Potassium 4.8 (3.5-5.1) mmol/L Chloride 102 (98-107) mmol/L Carbon Dioxide 23 (22-30) mmol/L BUN 27 H (9-20) mg/dL Creatinine 1.72 H (0.66-1.25) mg/dL Glucose 235 H (74-99) mg/dL Calcium 8.8 (8.4-10.2) mg/dL Total Bilirubin 0.6 (0.2-1.3) mg/dL AST 35 (17-59) U/L ALT 45 (4-49) U/L Alkaline Phosphatase 114 (38-126) U/L Total Protein 6.5 (6.3-8.2) g/dL Albumin 3.1 L (3.5-5.0) g/dL Assessment and Plan (1) Malignant neoplasm of bladder, unspecified Current Visit: Yes Status: Acute Code(s): C67.9 - MALIGNANT NEOPLASM OF BLADDER, UNSPECIFIED SNOMED Code(s): 334158017 Plan: The patient was admitted for dyspnea. He is afebrile and has no leukocytosis. The urine is essentially clear. Urinalysis shows evidence of pyuria, but in the absence of symptoms, fever, and leukocytosis it is difficult to say that this represents anything more than colonization. The patient had been advised by Dr. Mohr to be referred to a Medical Center for further evaluation of his voiding dysfunction, but the patient states that he does not have the means for transportation. He is long overdue for surveillance cystoscopy to rule out recurrent bladder cancer.
[2023-12-12 19:39] LABS: Glucose,Whole Blood 214 mg/dL (70-110)
[2023-12-12] MEDS: ACETAMINOPHEN TAB 500 MG TAB PO SCH (20:06)
--- NOTE | 2023-12-12 21:40 | P.HPIM ---
History of Present Illness H&P Date: 12/11/23 Chief Complaint: Sepsis and UTI, dyspnea and shortness of breath, type 2 sharan earnest, stage III HISTORY OF PRESENT ILLNESS: 88-year-old male who I have started seen in [facility] for the last few months with history of coronary artery disease, type 2 diabetes, chronic kidney disease, obstructive sleep apnea with CPAP, history of bladder cancer, history of recurrent UTI, history of CVA and TIA who also has chronic history of lower back pain and benign prostatic hypertrophy. History of PAD post AAA repair and right leg bypass surgery. He was in the hospital last over 6 months ago was admitted to [facility] as an elective admission 2 months ago when his is admitted for hospice care. He apparently developed to have significant shortness of breath with slight worsening in condition compared to his normal status and without being sent from [facility] for evaluation. On the way to the hospital he was giving an updraft treatment and started on oxygen. Upon arrival to the emergency department pulse ox is much better chest x-ray did not show any infiltrate at the time. Surprisingly patient found to have urinary tract infection with possible sepsis his electrolyte and balance are off no lactic acid was done at the time CBC sh ows WBC of 12,800 with left shift. Creatinine 1.72 blood sugar was mildly elevated COVID RSV and influenza were all negative but UA was very positive. Patient was started with Rocephin 1 g at bedtime along with hydration will continue updraft treatment continued to be attention to his hypoxia and shortness of breath correct electrolyte balance at this point and treat his urinary tract infection was has been watched carefully. His troponin came back to be negative no BNP was done. REVIEW OF SYSTEMS: CONSTITUTIONAL: Well-developed no acute respiratory distress. EYES: No icterus sclerae, no conjunctivitis. EARS, NOSE, MOUTH, THROAT, and FACE: No sore throat, lymphadenopathy, carotid bruits or deformity. RESPIRATORY: Slight complaint of shortness of breath no cough or wheezes. CARDIOVASCULAR: Positive PND orthopnea palpitation no angina. GASTROINTESTINAL: No Abd pain, Nausea or vomiting, no Diarrhea or constipation, No GI Bleed, no distention or masses. GENITOURINARY: Recurrent UTI and urosepsis.. INTEGUMENT/BREAST: Negative for any muscular injury with mild osteoarthritis.. HEMATOLOGIC/LYMPHATIC: Negative for bleed or purpura. MUSCULOSKELTAL: Generalized arthralgia and myalgia. NEURLOGICAL: No LOC, Sz or syncope, blurred vision dizziness or abnormality. Slight confusion.. BEHAVIORAL/PSYCH: Negative. ENDOCRINE: Negative. PHYSICAL EXAMINATION: General Appearance: Alert, cooperative, no distress, appears stated age. Slight confusion. Neck HEENT: Supple, no lymphadenopathy, no thyroid enlargement, no carotid bruits. Lungs: Decreased expansion with inspiration positive rhonchi with slight wheezes no crackles. Chest Wall: Decreased expansion with deep inspiration no tenderness and no deformity was found on exam, no costochondral pain or discomfort. Heart: Regular rate and rhythm, S1, S2 normal, no murmur, rub or gallop. Back: Symmetric, no curvature, ROM normal, no CVA tenderness. Slight scoliosis. Abdomen: Soft, non-tender, bowel sounds active all four quadrants, positive lower abdominal discomfort no masses or organomegaly scar tissue on the lower abdominal region area. Extremities: Extremities trace edema with slight discoloration with decreased pulse bilaterally. Pulses: Decreased bilaterally. Skin: Skin color, texture, tugor normal, no rashes or lesions. Neurologic: Alert oriented x3 cranial nerves II through XII intact, no motor deficit, positive abnormal gait. ASSESSMENT AND PLAN: _Sepsis and UTI: Will add to his lab lactic acid awaiting for final culture blood culture and urine culture at this point. Patient was started on Rocephin we will continue to treat this as urinary tract infection no sign of pneumonia at this point. _Recurrent urinary tract infection: Remain on tamsulosin and finasteride repeat UA more often to finalize the exam early if possible. _Dyspnea and shortness of breath: No finding consistent with any abnormality including pneumonia no heart failure with his history of heart disease BMP will be done along with EKG and we will repeat troponin again 1 more time in the morning. _Stage III chronic kidney disease with slight decline continue gentle hydration repeat chemistry in the next 24 hours. _Type 2 diabetes: Has been on glipizide Accu-Chek with sliding scale coverage will be done will watch for any hypoglycemia especially with his infection at this point. _Iron deficiency anemia: Continue iron supplement along with H2 kar CBC redone again in the morning. -Mild memory loss with dementia: Remain on donepezil continue medication. -Hyperlipidemia: Remain on atorvastatin 10 mg daily. -Severe chronic peripheral arterial disease: Post abdominal aortic aneurysm repair with angioplasty of the lower extremity as well. -Atherosclerotic heart disease post [place] in the past continue to watch for any recurrent chest pain also continue to watch for any recurrent diastolic or systolic heart failure. Patient might benefit any diuretics as well. -BPH: With no sign of obstruction remain on Flomax and Proscar continue both medication watch patient urine for any residual every shift. -GI prophylaxis: Patient be on Pepcid. -DVT prophylaxis: Knee-high OLGA hose and Venodyne boots. -CODE STATUS: DO NOT RESUSCITATE. - Admit patient to the inpatient service for more than 2 night stay. Past Medical History Past Medical History: Coronary Artery Disease (CAD), Cancer, CVA/TIA, Diabetes Mellitus, Hyperlipidemia, Hypertension, Myocardial Infarction ([place]), Prostate Disorder, Sleep Apnea/CPAP/BIPAP, Vascular Disorder Additional Past Medical History / Comment(s): TIA in 2014, MICHAEL without device, CKD stage III, chronic low back pain, migraines in past, vertigo, balance issues, falls, BPH, benign colon polyp, diverticular disease, vascular disease with surgery-AAA repair and R leg bypass, skin cancer with removal, superficial bladder cancer Last Myocardial Infarction Date:: 04/17/17 History of Any Multi-Drug Resistant Organisms: None Reported Past Surgical History: Adenoidectomy, Heart Catheterization With Stent, Tonsillectomy Additional Past Surgical History / Comment(s): 12/07/18 endovascular repair/stent graft infra renal aorta, R leg bypass surgery after AAA repair at [facility], colonoscopy/polypectomy, basal cell cancer removed from forehead, bilateral cataract removals/lens implants, cystoscopy -biopsy for cancer Past Anesthesia/Blood Transfusion Reactions: Motion Sickness Additional Past Anesthesia/Blood Transfusion Reaction / Comment(s): . Date of Last Stent Placement:: 03/2017 Past Psychological History: Anxiety, Depression Smoking Status: Former smoker Past Alcohol Use History: None Reported Past Drug Use History: None Reported - Past Family History Brother(s) Family Medical History: No Reported History Sister(s) Family Medical History: No Reported History Son(s) Family Medical History: No Reported History Father Family Medical History: Diabetes Mellitus, Myocardial Infarction ([place]), Vascular Disorder Additional Family Medical History / Comment(s): Father of a [place] at the age of 76 or 77yrs. He was an alcoholic. Mother Family Medical History: Deep Vein Thrombosis (DVT), Pulmonary Embolus Additional Family Medical History / Comment(s): Mother at 42 yrs of age of "blood clot" in the lung and it went to the heart. Medications and Allergies Home Medications Medication Instructions Recorded Confirmed Type Cyanocobalamin (Vitamin B-12) 1,000 mcg PO DAILY 04/17/17 12/11/23 History [Vitamin B-12] Aspirin 81 mg PO DAILY 04/20/17 12/11/23 Rx Finasteride [Proscar] 5 mg PO DAILY 12/01/18 12/11/23 History Tamsulosin HCl [Flomax] 0.4 mg PO BID 11/18/21 12/11/23 History Cholecalciferol [Vitamin D3 (25 25 mcg PO DAILY 03/19/22 12/11/23 History Mcg = 1000 Iu)] Acetaminophen/Diphenhydramine 2 tab PO HS 12/11/23 12/11/23 History [Tylenol PM 500-25mg] Atorvastatin [Lipitor] 10 mg PO HS 12/11/23 12/11/23 History Betamethasone Dipropionate 1 applic TOPICAL DAILY 12/11/23 12/11/23 History [Diprolene 0.05% Ointment] Dextran/Hypromellose/Glycerin 2 drop BOTH EYES Q12H 12/11/23 12/11/23 History [Genteal Tears 0.1%-0.2%-0.3%] Donepezil [Aricept] 10 mg PO HS 12/11/23 12/11/23 History Escitalopram [Lexapro] 10 mg PO DAILY 12/11/23 12/11/23 History Famotidine [Pepcid] 40 mg PO DAILY 12/11/23 12/11/23 History Ferrous Sulfate [Feosol] 325 mg PO DAILY 12/11/23 12/11/23 History Ibuprofen [Motrin] 600 mg PO DAILY 12/11/23 12/11/23 History L.acidoph,Paracasei, B.lactis 1 cap PO BID 12/11/23 12/11/23 History [Probiotic] Magnesium Hydroxide [Milk of 7,200 mg PO Q48H PRN 12/11/23 12/11/23 History Magnesia Concentrate] Na Phos,M-B/Na Phos,Di-Ba [Fleet 133 ml RECTAL DAILY PRN 12/11/23 12/11/23 History Adult] Ocusoft Lid Scrub Original 1 applic BOTH EYES HS 12/11/23 12/11/23 History External Pad (Eyelid Cleansers) Ondansetron [Zofran] 4 mg PO Q6H PRN 12/11/23 12/11/23 History Sennosides-Docusate Sodium 2 tab PO BID 12/11/23 12/11/23 History [Senokot-S] Triamcinolone 0.1% Cream [Kenalog 1 applicatio TOPICAL BID 12/11/23 12/11/23 History 0.1% Cream] bisacodyL [Dulcolax] 10 mg RECTAL DAILY PRN 12/11/23 12/11/23 History glipiZIDE [Glucotrol] 10 mg PO BID 12/11/23 12/11/23 History Allergies Allergy/AdvReac Type Severity Reaction Status Date / Time No Known Allergies Allergy Verified 12/11/23 13:54 Physical Exam Vitals: Vital Signs Temp Pulse Pulse Resp BP BP Pulse Ox 12/11/23 20:00 97.7 F 76 18 158/88 96 12/11/23 19:49 74 19 144/88 97 12/11/23 18:17 81 18 146/93 96 12/11/23 15:45 81 20 139/85 94 L 12/11/23 13:21 107 H 12/11/23 13:12 104 H 12/11/23 13:10 108 H 22 140/86 91 L 12/11/23 10:54 22 12/11/23 10:50 97.4 F L 105 H 22 174/92 93 L Intake and Output 12/11/23 12/11/23 12/11/23 06:59 14:59 22:59 Other: Weight 77.564 kg Results CBC & Chem 7: 12/11/23 11:50 12/11/23 11:50 Labs: Abnormal Lab Results - Last 24 Hours (Table) 12/11/23 12/11/23 12/11/23 Range/Units 11:50 11:50 15:06 WBC 12.8 H (3.8-10.6) k/uL RBC 4.00 L (4.30-5.90) m/uL Hgb 12.9 L (13.0-17.5) gm/dL Neutrophils # 11.6 H (1.3-7.7) k/uL Lymphocytes # 0.5 L (1.0-4.8) k/uL Sodium 133 L (137-145) mmol/L BUN 27 H (9-20) mg/dL Creatinine 1.72 H (0.66-1.25) mg/dL Glucose 235 H (74-99) mg/dL POC Glucose (mg/dL) (70-110) mg/dL Magnesium 1.5 L (1.6-2.3) mg/dL Albumin 3.1 L (3.5-5.0) g/dL Urine Protein 1+ H (Negative) Urine Glucose (UA) 2+ H (Negative) Urine Blood Large H (Negative) Ur Leukocyte Esterase Large H (Negative) Urine RBC 156 H (0-5) /hpf Urine WBC 178 H (0-5) /hpf Urine WBC Clumps Occasional H (None) /hpf Urine Bacteria Occasional H (None) /hpf Urine Mucus Rare H (None) /hpf 12/11/23 Range/Units 20:35 WBC (3.8-10.6) k/uL RBC (4.30-5.90) m/uL Hgb (13.0-17.5) gm/dL Neutrophils # (1.3-7.7) k/uL Lymphocytes # (1.0-4.8) k/uL Sodium (137-145) mmol/L BUN (9-20) mg/dL Creatinine (0.66-1.25) mg/dL Glucose (74-99) mg/dL POC Glucose (mg/dL) 262 H (70-110) mg/dL Magnesium (1.6-2.3) mg/dL Albumin (3.5-5.0) g/dL Urine Protein (Negative) Urine Glucose (UA) (Negative) Urine Blood (Negative) Ur Leukocyte Esterase (Negative) Urine RBC (0-5) /hpf Urine WBC (0-5) /hpf Urine WBC Clumps (None) /hpf Urine Bacteria (None) /hpf Urine Mucus (None) /hpf
--- NOTE | 2023-12-12 21:43 | P.PN ---
Subjective Progress Note Date: 12/12/23 HISTORY OF PRESENT ILLNESS: 88-year-old male who I have started seen in [facility] for the last few months with history of coronary artery disease, type 2 diabetes, chronic kidney disease, obstructive sleep apnea with CPAP, history of bladder cancer, history of recurrent UTI, history of CVA and TIA who also has chronic history of lower back pain and benign prostatic hypertrophy. History of PAD post AAA repair and right leg bypass surgery. He was in the hospital last over 6 months ago was admitted to [facility] as an elective admission 2 months ago when his is admitted for hospice care. He apparently developed to have significant shortness of breath with slight worsening in condition compared to his normal status and without being sent from [facility] for evaluation. On the way to the hospital he was giving an updraft treatment and started on oxygen. Upon arrival to the emergency department pulse ox is much better chest x-ray did not show any infiltrate at the time. Surprisingly patient found to have urinary tract infection with possible sepsis his electrolyte and balance are off no lactic acid was done at the time CBC shows WBC of 12,800 with left shift. Creatinine 1.72 blood sugar was mildly elevated COVID RSV and influenza were all negative but UA was very positive. Patient was started with Rocephin 1 g at bedtime along with hydration will continue updraft treatment continued to be attention to his hypoxia and shortness of breath correct electrolyte balance at this point and treat his urinary tract infection was has been watched carefully. His troponin came back to be negative no BNP was done. 12/12/2023: Has been doing slightly better consult urology still waiting for the final culture they agree with the current plan patient had malignant neoplasm of the bladder and because of patient's current history do believe without any fever and leukocytosis is difficult to say the patient has infection more than colonized bacteria. The patient also was supposed to see urology in one of the tertiary center for possible evaluation of his voiding dysfunction but he can do it early and still have an indwelling catheter at this point on regular basis. He required to go for surveillance cystoscopy as well for his cancer. REVIEW OF SYSTEMS: CONSTITUTIONAL: Well-developed no acute respiratory distress. EYES: No icterus sclerae, no conjunctivitis. EARS, NOSE, MOUTH, THROAT, and FACE: No sore throat, lymphadenopathy, carotid bruits or deformity. RESPIRATORY: Slight complaint of shortness of breath no cough or wheezes. CARDIOVASCULAR: Positive PND orthopnea palpitation no angina. GASTROINTESTINAL: No Abd pain, Nausea or vomiting, no Diarrhea or constipation, No GI Bleed, no distention or masses. GENITOURINARY: Recurrent UTI and urosepsis.. INTEGUMENT/BREAST: Negative for any muscular injury with mild osteoarthritis.. HEMATOLOGIC/LYMPHATIC: Negative for bleed or purpura. MUSCULOSKELTAL: Generalized arthralgia and myalgia. NEURLOGICAL: No LOC, Sz or syncope, blurred vision dizziness or abnormality. Slight confusion.. BEHAVIORAL/PSYCH: Negative. ENDOCRINE: Negative. PHYSICAL EXAMINATION: General Appearance: Alert, cooperative, no distress, appears stated age. Slight confusion. Neck HEENT: Supple, no lymphadenopathy, no thyroid enlargement, no carotid bruits. Lungs: Decreased expansion with inspiration positive rhonchi with slight wheezes no crackles. Chest Wall: Decreased expansion with deep inspiration no tenderness and no deformity was found on exam, no costochondral pain or discomfort. Heart: Regular rate and rhythm, S1, S2 normal, no murmur, rub or gallop. Back: Symmetric, no curvature, ROM normal, no CVA tenderness. Slight scoliosis. Abdomen: Soft, non-tender, bowel sounds active all four quadrants, positive lower abdominal discomfort no masses or organomegaly scar tissue on the lower abdominal region area. Extremities: Extremities trace edema with slight discoloration with decreased pulse bilaterally. Pulses: Decreased bilaterally. Skin: Skin color, texture, tugor normal, no rashes or lesions. Neurologic: Alert oriented x3 cranial nerves II through XII intact, no motor deficit, positive abnormal gait. ASSESSMENT AND PLAN: _Sepsis and UTI: Will add to his lab lactic acid awaiting for final culture blood culture and urine culture at this point. Patient was started on Rocephin we will continue to treat this as urinary tract infection no sign of pneumonia at this point. _Recurrent urinary tract infection: Remain on tamsulosin and finasteride repeat UA more often to finalize the exam early if possible. _Dyspnea and shortness of breath: No finding consistent with any abnormality including pneumonia no heart failure with his history of heart disease BMP will be done along with EKG and we will repeat troponin again 1 more time in the morning. -History of bladder cancer patient will probably need to go for cystoscopy again. -Voiding dysfunction: Patient still have an indwelling catheter which probably part of the problem with his recurrent UTI. _Stage III chronic kidney disease with slight decline continue gentle hydration repeat chemistry in the next 24 hours. _Type 2 diabetes: Has been on glipizide Accu-Chek with sliding scale coverage will be done will watch for any hypoglycemia especially with his infection at this point. _Iron deficiency anemia: Continue iron supplement along with H2 kar CBC redone again in the morning. -Mild memory loss with dementia: Remain on donepezil continue medication. -Hyperlipidemia: Remain on atorvastatin 10 mg daily. -Severe chronic peripheral arterial disease: Post abdominal aortic aneurysm repair with angioplasty of the lower extremity as well. -Atherosclerotic heart disease post DC in the past continue to watch for any re current chest pain also continue to watch for any recurrent diastolic or systolic heart failure. Patient might benefit any diuretics as well. -BPH: With no sign of obstruction remain on Flomax and Proscar continue both medication watch patient urine for any residual every shift. Objective - Vital Signs Vital signs: Vital Signs Temp 97.7 F 12/12/23 02:23 Pulse 60 12/12/23 02:23 Resp 15 12/12/23 02:23 BP 154/80 12/12/23 02:23 Pulse Ox 93 L 12/12/23 02:23 FiO2 Intake & Output 12/11/23 12/11/23 12/12/23 06:59 18:59 06:59 Output Total 400 Balance -400 Weight 77.564 kg 77.564 kg Output: Urine 400 Other: Voiding Method Indwelling Catheter - Labs CBC & Chem 7: 12/12/23 06:45 12/12/23 06:45 Labs: Abnormal Lab Results - Last 24 Hours (Table) 12/11/23 12/11/23 12/11/23 Range/Units 11:50 11:50 15:06 WBC 12.8 H (3.8-10.6) k/uL RBC 4.00 L (4.30-5.90) m/uL Hgb 12.9 L (13.0-17.5) gm/dL Neutrophils # 11.6 H (1.3-7.7) k/uL Lymphocytes # 0.5 L (1.0-4.8) k/uL Sodium 133 L (137-145) mmol/L BUN 27 H (9-20) mg/dL Creatinine 1.72 H (0.66-1.25) mg/dL Glucose 235 H (74-99) mg/dL POC Glucose (mg/dL) (70-110) mg/dL Magnesium 1.5 L (1.6-2.3) mg/dL Albumin 3.1 L (3.5-5.0) g/dL Urine Protein 1+ H (Negative) Urine Glucose (UA) 2+ H (Negative) Urine Blood Large H (Negative) Ur Leukocyte Esterase Large H (Negative) Urine RBC 156 H (0-5) /hpf Urine WBC 178 H (0-5) /hpf Urine WBC Clumps Occasional H (None) /hpf Urine Bacteria Occasional H (None) /hpf Urine Mucus Rare H (None) /hpf 12/11/23 Range/Units 20:35 WBC (3.8-10.6) k/uL RBC (4.30-5.90) m/uL Hgb (13.0-17.5) gm/dL Neutrophils # (1.3-7.7) k/uL Lymphocytes # (1.0-4.8) k/uL Sodium (137-145) mmol/L BUN (9-20) mg/dL Creatinine (0.66-1.25) mg/dL Glucose (74-99) mg/dL POC Glucose (mg/dL) 262 H (70-110) mg/dL Magnesium (1.6-2.3) mg/dL Albumin (3.5-5.0) g/dL Urine Protein (Negative) Urine Glucose (UA) (Negative) Urine Blood (Negative) Ur Leukocyte Esterase (Negative) Urine RBC (0-5) /hpf Urine WBC (0-5) /hpf Urine WBC Clumps (None) /hpf Urine Bacteria (None) /hpf Urine Mucus (None) /hpf
[2023-12-13 07:08] LABS: Glucose,Whole Blood 93 mg/dL (70-110)
[2023-12-13 08:49] LABS: HCT 34.6 % (39.6-50.0); MCH 31.1 pg (27.0-32.0); MCHC 31.8 g/dL (32.0-37.0); MCV 97.7 FL (80.0-97.0); Mean Platelet Volume 9.6 FL (9.5-12.2); NRBC Per 100 WBC 0 X 10*3/uL (0.00-0.01); Platelet Count 240 X 10*3/uL (140-440); RBC 3.54 X 10*6/uL (4.40-5.60); RDW 12.5 % (11.5-14.5); WBC 15.66 X 10*3/uL (4.50-10.00)
[2023-12-13 08:59] LABS: ALT 46 U/L (10-49); AST 28 U/L (14-35); Albumin 2.8 g/dL (3.8-4.9); Albumin/Globulin Ratio 1.08 Ratio (1.60-3.17); Alkaline Phosphatase 79 U/L (41-126); Blood Urea Nitrogen 28.8 mg/dL (9.0-27.0); Calcium 8.7 mg/dL (8.7-10.3); Carbon Dioxide 22.9 mmol/L (21.6-31.8); Chloride 107 mmol/L (96-109); Globulin 2.6 g/dL (1.6-3.3); Glucose 105 mg/dL (70-110); Potassium 4.4 mmol/L (3.5-5.5); Sodium 137 mmol/L (135-145); Total Bilirubin <0.2 mg/dL (0.3-1.2); Total Protein 5.4 g/dL (6.2-8.2)
[2023-12-13 10:04] LABS: Basophils % (A) 0 %; Eosinophils # (A) 0.1 k/uL (0-0.7); Eosinophils % (A) 0 %; HCT 38.3 % (39.0-53.0); HGB 12.2 gm/dL (13.0-17.5); Hypochromasia Slight; Lymphocytes # (A) 2.2 k/uL (1.0-4.8); Lymphocytes % (A) 17 %; MCHC 31.8 g/dL (31.0-37.0); MCV 100.5 fL (80.0-100.0); Mean Platelet Volume 7.8; Monocytes # (A) 0.7 k/uL (0-1.0); Monocytes % (A) 5 %; Neutrophils # (A) 9.9 k/uL (1.3-7.7); Neutrophils % (A) 76 %; Platelet Count 250 k/uL (150-450); RBC 3.81 m/uL (4.30-5.90); RDW 12.5 % (11.5-15.5); WBC 13.1 k/uL (3.8-10.6)
[2023-12-13] MEDS: DAPAGLIFLOZIN PROPANEDIOL 5 MG TABLET PO SCH (10:30)
[2023-12-13 12:09] LABS: Glucose,Whole Blood 133 mg/dL (70-110)
[2023-12-13 17:08] LABS: Glucose,Whole Blood 175 mg/dL (70-110)
[2023-12-13 20:13] LABS: Glucose,Whole Blood 171 mg/dL (70-110)
--- NOTE | 2023-12-14 04:57 | P.PN ---
Subjective Progress Note Date: 12/13/23 HISTORY OF PRESENT ILLNESS: 88-year-old male who I have started seen in [facility] for the last few months with history of coronary artery disease, type 2 diabetes, chronic kidney disease, obstructive sleep apnea with CPAP, history of bladder cancer, history of recurrent UTI, history of CVA and TIA who also has chronic history of lower back pain and benign prostatic hypertrophy. History of PAD post AAA repair and right leg bypass surgery. He was in the hospital last over 6 months ago was admitted to [facility] as an elective admission 2 months ago when his is admitted for hospice care. He apparently developed to have significant shortness of breath with slight worsening in condition compared to his normal status and without being sent from [facility] for evaluation. On the way to the hospital he was giving an updraft treatment and started on oxygen. Upon arrival to the emergency department pulse ox is much better chest x-ray did not show any infiltrate at the time. Surprisingly patient found to have urinary tract infection with possible sepsis his electrolyte and balance are off no lactic acid was done at the time CBC shows WBC of 12,800 with left shift. Creatinine 1.72 blood sugar was mildly elevated COVID RSV and influenza were all negative but UA was very positive. Patient was started with Rocephin 1 g at bedtime along with hydration will continue updraft treatment continued to be attention to his hypoxia and shortness of breath correct electrolyte balance at this point and treat his urinary tract infection was has been watched carefully. His troponin came back to be negative no BNP was done. 12/12/2023: Has been doing slightly better consult urology still waiting for the final culture they agree with the current plan patient had malignant neoplasm of the bladder and because of patient's current history do believe without any fever and leukocytosis is difficult to say the patient has infection more than colonized bacteria. The patient also was supposed to see urology in one of the tertiary center for possible evaluation of his voiding dysfunction but he can do it early and still have an indwelling catheter at this point on regular basis. He required to go for surveillance cystoscopy as well for his cancer. 12/13/2023: Patient is doing much better ambulating with a walker with help his infection is under control Aceves catheter is clearing up at this point. Will continue use on IV antibiotic for 1 more day expected probably to be discharged back to SNF by tomorrow. REVIEW OF SYSTEMS: CONSTITUTIONAL: Well-developed no acute respiratory distress. EYES: No icterus sclerae, no conjunctivitis. EARS, NOSE, MOUTH, THROAT, and FACE: No sore throat, lymphadenopathy, carotid b ruits or deformity. RESPIRATORY: Slight complaint of shortness of breath no cough or wheezes. CARDIOVASCULAR: Positive PND orthopnea palpitation no angina. GASTROINTESTINAL: No Abd pain, Nausea or vomiting, no Diarrhea or constipation, No GI Bleed, no distention or masses. GENITOURINARY: Recurrent UTI and urosepsis.. INTEGUMENT/BREAST: Negative for any muscular injury with mild osteoarthritis.. HEMATOLOGIC/LYMPHATIC: Negative for bleed or purpura. MUSCULOSKELTAL: Generalized arthralgia and myalgia. NEURLOGICAL: No LOC, Sz or syncope, blurred vision dizziness or abnormality. Slight confusion.. BEHAVIORAL/PSYCH: Negative. ENDOCRINE: Negative. PHYSICAL EXAMINATION: General Appearance: Alert, cooperative, no distress, appears stated age. Slight confusion. Neck HEENT: Supple, no lymphadenopathy, no thyroid enlargement, no carotid bruits. Lungs: Decreased expansion with inspiration positive rhonchi with slight wheezes no crackles. Chest Wall: Decreased expansion with deep inspiration no tenderness and no deformity was found on exam, no costochondral pain or discomfort. Heart: Regular rate and rhythm, S1, S2 normal, no murmur, rub or gallop. Back: Symmetric, no curvature, ROM normal, no CVA tenderness. Slight scoliosis. Abdomen: Soft, non-tender, bowel sounds active all four quadrants, positive lower abdominal discomfort no masses or organomegaly scar tissue on the lower abdominal region area. Extremities: Extremities trace edema with slight discoloration with decreased pulse bilaterally. Pulses: Decreased bilaterally. Skin: Skin color, texture, tugor normal, no rashes or lesions. Neurologic: Alert oriented x3 cranial nerves II through XII intact, no motor deficit, positive abnormal gait. ASSESSMENT AND PLAN: _Sepsis and UTI: Still on Rocephin at this point given his culture came back as a group D Enterococcus susceptibility of blood cultures not finalized yet might benefit probably from switching him to ciprofloxacin and place. _Recurrent urinary tract infection: Still have an indwelling catheter and had voiding dysfunction which probably not helping. _Dyspnea and shortness of breath: No finding consistent with any abnormality including pneumonia no heart failure with his history of heart disease BMP will be done along with EKG and we will repeat troponin again 1 more time in the morning. -History of bladder cancer patient will probably need to go for cystoscopy again. Follow with urology regularly for it. -Voiding dysfunction: Patient still have an indwelling catheter which probably part of the problem with his recurrent UTI. _Stage III chronic kidney disease with slight decline continue gentle hydration repeat chemistry in the next 24 hours. _Type 2 diabetes: Has been on glipizide Accu-Chek with sliding scale coverage will be done will watch for any hypoglycemia especially with his infection at this point. _Iron deficiency anemia: Continue iron supplement along with H2 kar CBC redo ne again in the morning. -Mild memory loss with dementia: Remain on donepezil continue medication. -Hyperlipidemia: Remain on atorvastatin 10 mg daily. -Severe chronic peripheral arterial disease: Post abdominal aortic aneurysm repair with angioplasty of the lower extremity as well. -Atherosclerotic heart disease post ME in the past continue to watch for any recurrent chest pain also continue to watch for any recurrent diastolic or systolic heart failure. Patient might benefit any diuretics as well. -BPH: With no sign of obstruction remain on Flomax and Proscar continue both medication watch patient urine for any residual every shift. Discharge planning: Hopefully if all well patient will be able to go back to [facility] tomorrow. Objective - Vital Signs Vital signs: Vital Signs Temp 97.6 F 12/13/23 02:00 Pulse 83 12/13/23 02:00 Resp 16 12/13/23 02:00 BP 139/76 12/13/23 02:00 Pulse Ox 97 12/13/23 02:00 FiO2 Intake & Output 12/12/23 12/12/23 12/13/23 06:59 18:59 06:59 Output Total 400 400 800 Balance -400 -400 -800 Weight 77.564 kg Output: Urine 400 400 800 Other: Voiding Method Indwelling Catheter Indwelling Catheter Indwelling Catheter # Bowel Movements 1 - Labs CBC & Chem 7: 12/13/23 09:36 12/13/23 03:54 Labs: Abnormal Lab Results - Last 24 Hours (Table) 12/12/23 12/12/23 12/12/23 Range/Units 06:45 06:45 07:01 RBC 3.74 L (4.40-5.60) X 10*6/uL Hgb 11.7 L (13.0-17.0) g/dL Hct 36.3 L (39.6-50.0) % MCV 97.1 H (80.0-97.0) FL Sodium 133 L (135-145) mmol/L Carbon Dioxide 21.1 L (21.6-31.8) mmol/L Creatinine 1.6 H (0.6-1.5) mg/dL Est GFR (CKD-EPI) 42 L (>=60) Glucose 244 H (70-110) mg/dL POC Glucose (mg/dL) 217 H (70-110) mg/dL Total Bilirubin <0.2 L (0.3-1.2) mg/dL Total Protein 5.9 L (6.2-8.2) g/dL Albumin 2.9 L (3.8-4.9) g/dL Albumin/Globulin Ratio 0.97 L (1.60-3.17) Ratio 12/12/23 12/12/23 12/12/23 Range/Units 12:26 16:52 19:38 RBC (4.40-5.60) X 10*6/uL Hgb (13.0-17.0) g/dL Hct (39.6-50.0) % MCV (80.0-97.0) FL Sodium (135-145) mmol/L Carbon Dioxide (21.6-31.8) mmol/L Creatinine (0.6-1.5) mg/dL Est GFR (CKD-EPI) (>=60) Glucose (70-110) mg/dL POC Glucose (mg/dL) 301 H 246 H 214 H (70-110) mg/dL Total Bilirubin (0.3-1.2) mg/dL Total Protein (6.2-8.2) g/dL Albumin (3.8-4.9) g/dL Albumin/Globulin Ratio (1.60-3.17) Ratio
--- NOTE | 2023-12-14 05:00 | P.DS ---
Providers Date of admission: 12/11/23 17:40 Attending physician: Chinedu Gan Consults: 12/12/23 07:38 Consult Physician Routine Consulting Provider: Bridger Mohr Consult Reason/Comments: recurrent UTI and indwelling cath Do you want consulting provider notified?: Yes Primary care physician: Chinedu Gan [facility] Course: HISTORY OF PRESENT ILLNESS: 88-year-old male who I have started seen in [facility] for the last few months with history of coronary artery disease, type 2 diabetes, chronic kidney disease, obstructive sleep apnea with CPAP, history of bladder cancer, history of recurrent UTI, history of CVA and TIA who also has chronic history of lower back pain and benign prostatic hypertrophy. History of PAD post AAA repair and right leg bypass surgery. He was in the hospital last over 6 months ago was admitted to [facility] as an elective admission 2 months ago when his is admitted for hospice care. He apparently developed to have significant shortness of breath with slight worsening in condition compared to his normal status and without being sent from [facility] for evaluation. On the way to the hospital he was giving an updraft treatment and started on oxygen. Upon arrival to the emergency department pulse ox is much better chest x-ray did not show any infiltrate at the time. Surprisingly patient found to have urinary tract infection with possible sepsis his electrolyte and balance are off no lactic acid was done at the time CBC shows WBC of 12,800 with left shift. Creatinine 1.72 blood sugar was mildly elevated COVID RSV and influenza were all negative but UA was very positive. Patient was started with Rocephin 1 g at bedtime along with hydration will continue updraft treatment continued to be attention to his hypoxia and s hortness of breath correct electrolyte balance at this point and treat his urinary tract infection was has been watched carefully. His troponin came back to be negative no BNP was done. 12/12/2023: Has been doing slightly better consult urology still waiting for the final culture they agree with the current plan patient had malignant neoplasm of the bladder and because of patient's current history do believe without any fever and leukocytosis is difficult to say the patient has infection more than colonized bacteria. The patient also was supposed to see urology in one of the tertiary center for possible evaluation of his voiding dysfunction but he can do it early and still have an indwelling catheter at this point on regular basis. He required to go for surveillance cystoscopy as well for his cancer. 12/13/2023: Patient is doing much better ambulating with a walker with help his infection is under control Aceves catheter is clearing up at this point. Will continue use on IV antibiotic for 1 more day expected probably to be discharged back to SNF by tomorrow. REVIEW OF SYSTEMS: CONSTITUTIONAL: Well-developed no acute respiratory distress. EYES: No icterus sclerae, no conjunctivitis. EARS, NOSE, MOUTH, THROAT, and FACE: No sore throat, lymphadenopathy, carotid bruits or deformity. RESPIRATORY: Slight complaint of shortness of breath no cough or wheezes. CARDIOVASCULAR: Positive PND orthopnea palpitation no angina. GASTROINTESTINAL: No Abd pain, Nausea or vomiting, no Diarrhea or constipation, No GI Bleed, no distention or masses. GENITOURINARY: Recurrent UTI and urosepsis.. INTEGUMENT/BREAST: Negative for any muscular injury with mild osteoarthritis.. HEMATOLOGIC/LYMPHATIC: Negative for bleed or purpura. MUSCULOSKELTAL: Generalized arthralgia and myalgia. NEURLOGICAL: No LOC, Sz or syncope, blurred vision dizziness or abnormality. Slight confusion.. BEHAVIORAL/PSYCH: Negative. ENDOCRINE: Negative. PHYSICAL EXAMINATION: General Appearance: Alert, cooperative, no distress, appears stated age. Slight confusion. Neck HEENT: Supple, no lymphadenopathy, no thyroid enlargement, no carotid bruits. Lungs: Decreased expansion with inspiration positive rhonchi with slight wheezes no crackles. Chest Wall: Decreased expansion with deep inspiration no tenderness and no deformity was found on exam, no costochondral pain or discomfort. Heart: Regular rate and rhythm, S1, S2 normal, no murmur, rub or gallop. Back: Symmetric, no curvature, ROM normal, no CVA tenderness. Slight scoliosis. Abdomen: Soft, non-tender, bowel sounds active all four quadrants, positive lower abdominal discomfort no masses or organomegaly scar tissue on the lower abdominal region area. Extremities: Extremities trace edema with slight discoloration with decreased pulse bilaterally. Pulses: Decreased bilaterally. Skin: Skin color, texture, tugor normal, no rashes or lesions. Neurologic: Alert oriented x3 cranial nerves II through XII intact, no motor deficit, positive abnormal gait. ASSESSMENT AND PLAN: _Sepsis and UTI: Still on Rocephin at this point given his culture came back as a group D Enterococcus susceptibility of blood cultures not finalized yet might benefit probably from switching him to ciprofloxacin and place. _Recurrent urinary tract infection: Still have an indwelling catheter and had voiding dysfunction which probably not helping. _Dyspnea and shortness of breath: No finding consistent with any abnormality including pneumonia no heart failure with his history of heart disease BMP will be done along with EKG and we will repeat troponin again 1 more time in the morning. -History of bladder cancer patient will probably need to go for cystoscopy again. Follow with urology regularly for it. -Voiding dysfunction: Patient still have an indwelling catheter which probably part of the problem with his recurrent UTI. _Stage III chronic kidney disease with slight decline continue gentle hydration repeat chemistry in the next 24 hours. _Type 2 diabetes: Has been on glipizide Accu-Chek with sliding scale coverage will be done will watch for any hypoglycemia especially with his infection at this point. _Iron deficiency anemia: Continue iron supplement along with H2 kar CBC redone again in the morning. -Mild memory loss with dementia: Remain on donepezil continue medication. -Hyperlipidemia: Remain on atorvastatin 10 mg daily. -Severe chronic peripheral arterial disease: Post abdominal aortic aneurysm repair with angioplasty of the lower extremity as well. -Atherosclerotic heart disease post UT in the past continue to watch for any recurrent chest pain also continue to watch for any recurrent diastolic or systolic heart failure. Patient might benefit any diuretics as well. -BPH: With no sign of obstruction remain on Flomax and Proscar continue both medication watch patient urine for any residual every shift. Hospital course: Patient was started on IV antibiotics he responded very well to treatment, he was seen urology agree with the current plan specially being treated for bladder cancer and having voiding dysfunction while he is having indwelling catheter with infection and recurrent infection is much higher. Advised to continue current management for now awaiting for the final culture. Final culture came back with Enterococcus group D the susceptibility is not final even though he is going tomorrow with on cefuroxime to 50 mg twice a day might switch it to Cipro 250 twice a day for total of 10 days according or based on the culture final result. Patient is doing well otherwise blood sugars under control his mobility with physical therapy has been doing well. His confusion and dyspnea are improved. Time spent in patient discharge was over 35 minutes. Patient Condition at Discharge: Stable Plan - Discharge Summary New Discharge Prescriptions: New Cefuroxime [Ceftin] 250 mg PO BID 7 Days #14 tab Dapagliflozin Propanediol [Farxiga] 5 mg PO DAILY tab INSULIN ASPART (NovoLOG) [NovoLOG (formulary)] See Rx Instructions .ROUTE .COMPLEX each Acetaminophen Tab [Tylenol] 650 mg PO Q6HR PRN tab PRN Reason: Mild Pain Or Fever > 100.5 Continue Cyanocobalamin (Vitamin B-12) [Vitamin B-12] 1,000 mcg PO DAILY Aspirin 81 mg PO DAILY Finasteride [Proscar] 5 mg PO DAILY Tamsulosin HCl [Flomax] 0.4 mg PO BID Cholecalciferol [Vitamin D3 (25 Mcg = 1000 Iu)] 25 mcg PO DAILY Triamcinolone 0.1% Cream [Kenalog 0.1% Cream] 1 applicatio TOPICAL BID Ocusoft Lid Scrub Original External Pad (Eyelid Cleansers) 1 applic BOTH EYES HS L.acidoph,Paracasei, B.lactis [Probiotic] 1 cap PO BID Magnesium Hydroxide [Milk of Magnesia Concentrate] 7,200 mg PO Q48H PRN PRN Reason: Constipation Dextran/Hypromellose/Glycerin [Genteal Tears 0.1%-0.2%-0.3%] 2 drop BOTH EYES Q12H Na Phos,M-B/Na Phos,Di-Ba [Fleet Adult] 133 ml RECTAL DAILY PRN PRN Reason: Constipation Escitalopram [Lexapro] 10 mg PO DAILY bisacodyL [Dulcolax] 10 mg RECTAL DAILY PRN PRN Reason: Constipation Donepezil [Aricept] 10 mg PO HS Betamethasone Dipropionate [Diprolene 0.05% Ointment] 1 applic TOPICAL DAILY Acetaminophen/Diphenhydramine [Tylenol PM 500-25mg] 2 tab PO HS Ondansetron [Zofran] 4 mg PO Q6H PRN PRN Reason: Nausea And Vomiting Ferrous Sulfate [Iron (65 MG Elemental)] 325 mg PO DAILY glipiZIDE [Glucotrol] 10 mg PO BID Famotidine [Pepcid] 40 mg PO DAILY Atorvastatin [Lipitor] 10 mg PO HS Discontinued Sennosides-Docusate Sodium [Senokot-S] 2 tab PO BID Ibuprofen [Motrin] 600 mg PO DAILY Discharge Medication List Cyanocobalamin (Vitamin B-12) [Vitamin B-12] 1,000 mcg PO DAILY 04/17/17 [History] Aspirin 81 mg PO DAILY 04/20/17 [Rx] Finasteride [Proscar] 5 mg PO DAILY 12/01/18 [History] Tamsulosin HCl [Flomax] 0.4 mg PO BID 11/18/21 [History] Cholecalciferol [Vitamin D3 (25 Mcg = 1000 Iu)] 25 mcg PO DAILY 03/19/22 [History] Acetaminophen/Diphenhydramine [Tylenol PM 500-25mg] 2 tab PO HS 12/11/23 [History] Atorvastatin [Lipitor] 10 mg PO HS 12/11/23 [History] Betamethasone Dipropionate [Diprolene 0.05% Ointment] 1 applic TOPICAL DAILY 12/11/23 [History] Dextran/Hypromellose/Glycerin [Genteal Tears 0.1%-0.2%-0.3%] 2 drop BOTH EYES Q12H 12/11/23 [History] Donepezil [Aricept] 10 mg PO HS 12/11/23 [History] Escitalopram [Lexapro] 10 mg PO DAILY 12/11/23 [History] Famotidine [Pepcid] 40 mg PO DAILY 12/11/23 [History] Ferrous Sulfate [Iron (65 MG Elemental)] 325 mg PO DAILY 12/11/23 [History] L.acidoph,Paracasei, B.lactis [Probiotic] 1 cap PO BID 12/11/23 [History] Magnesium Hydroxide [Milk of Magnesia Concentrate] 7,200 mg PO Q48H PRN 12/11/23 [History] Na Phos,M-B/Na Phos,Di-Ba [Fleet Adult] 133 ml RECTAL DAILY PRN 12/11/23 [History] Ocusoft Lid Scrub Original External Pad (Eyelid Cleansers) 1 applic BOTH EYES HS 12/11/23 [History] Ondansetron [Zofran] 4 mg PO Q6H PRN 12/11/23 [History] Triamcinolone 0.1% Cream [Kenalog 0.1% Cream] 1 applicatio TOPICAL BID 12/11/23 [History] bisacodyL [Dulcolax] 10 mg RECTAL DAILY PRN 12/11/23 [History] glipiZIDE [Glucotrol] 10 mg PO BID 12/11/23 [History] Acetaminophen Tab [Tylenol] 650 mg PO Q6HR PRN tab 12/14/23 [Rx] Cefuroxime [Ceftin] 250 mg PO BID 7 Days #14 tab 12/14/23 [Rx] Dapagliflozin Propanediol [Farxiga] 5 mg PO DAILY tab 12/14/23 [Rx] INSULIN ASPART (NovoLOG) [NovoLOG (formulary)] See Rx Instructions .ROUTE .COMPLEX each 12/14/23 [Rx] Follow up Appointment(s)/Referral(s): Chinedu Gan MD [Primary Care Provider] - 1 Week Bridger Mohr MD [STAFF PHYSICIAN] - 4 Weeks Activity/Diet/Wound Care/Special Instructions: Schedule office cystoscopy with Dr. Mohr. Discharge Disposition: TRANSFER TO SNF/ECF
[2023-12-14 07:10] LABS: Glucose,Whole Blood 84 mg/dL (70-110)
--- NOTE | 2023-12-14 08:21 | P.PN ---
Subjective Progress Note Date: 12/14/23 Principal diagnosis: Bladder cancer, UTI The patient has had an indwelling Aceves catheter for over 1 year due to voiding dysfunction. He was admitted with dyspnea. Urine culture shows group D Enterococcus, the significance of which is unclear. The Aceves catheter is draining clear yellow urine. The patient feels well and is being transferred back to [facility] today. Objective - Vital Signs Vital signs: Vital Signs Temp 98.5 F 12/14/23 07:18 Pulse 65 12/14/23 07:18 Resp 15 12/14/23 07:18 BP 160/87 12/14/23 07:18 Pulse Ox 97 12/14/23 07:18 FiO2 Intake & Output 12/13/23 12/14/23 12/14/23 18:59 06:59 18:59 Output Total 925 1575 Balance -925 -1575 Output: Urine 925 1575 Other: Voiding Method Indwelling Catheter Indwelling Catheter # Bowel Movements 1 - Constitutional General appearance: Present: average body habitus, no acute distress - Psychiatric Psychiatric: Present: A&O x's 3 - Labs CBC & Chem 7: 12/13/23 09:36 12/13/23 03:54 Labs: Abnormal Lab Results - Last 24 Hours (Table) 12/13/23 12/13/23 12/13/23 Range/Units 03:54 03:54 09:36 WBC 15.66 H 13.1 H (4.50-10.00) X 10*3/uL RBC 3.54 L 3.81 L (4.40-5.60) X 10*6/uL Hgb 11.0 L 12.2 L (13.0-17.0) g/dL Hct 34.6 L 38.3 L (39.6-50.0) % MCV 97.7 H 100.5 H (80.0-97.0) FL MCHC 31.8 L (32.0-37.0) g/dL Neutrophils # 9.9 H (1.3-7.7) k/uL BUN 28.8 H (9.0-27.0) mg/dL Creatinine 1.6 H (0.6-1.5) mg/dL Est GFR (CKD-EPI) 42 L (>=60) POC Glucose (mg/dL) (70-110) mg/dL Total Bilirubin <0.2 L (0.3-1.2) mg/dL Total Protein 5.4 L (6.2-8.2) g/dL Albumin 2.8 L (3.8-4.9) g/dL Albumin/Globulin Ratio 1.08 L (1.60-3.17) Ratio 12/13/23 12/13/23 12/13/23 Range/Units 12:08 17:07 20:10 WBC (4.50-10.00) X 10*3/uL RBC (4.40-5.60) X 10*6/uL Hgb (13.0-17.0) g/dL Hct (39.6-50.0) % MCV (80.0-97.0) FL MCHC (32.0-37.0) g/dL Neutrophils # (1.3-7.7) k/uL BUN (9.0-27.0) mg/dL Creatinine (0.6-1.5) mg/dL Est GFR (CKD-EPI) (>=60) POC Glucose (mg/dL) 133 H 175 H 171 H (70-110) mg/dL Total Bilirubin (0.3-1.2) mg/dL Total Protein (6.2-8.2) g/dL Albumin (3.8-4.9) g/dL Albumin/Globulin Ratio (1.60-3.17) Ratio Microbiology - Last 24 Hours (Table) 12/11/23 21:43 Blood Culture - Preliminary Blood 12/11/23 15:06 Urine Culture - Preliminary Urine,Voided Group D Enterococcus Assessment and Plan (1) Malignant neoplasm of bladder, unspecified Current Visit: Yes Status: Acute Code(s): C67.9 - MALIGNANT NEOPLASM OF BLADDER, UNSPECIFIED SNOMED Code(s): 001904026 Plan: The patient was admitted for dyspnea. He is afebrile and has no leukocytosis. The urine is clear. Urine culture shows group D Enterococcus, but it is difficult to say that this represents anything more than colonization. The patient had been advised by Dr. Mohr to be referred to a Medical Center for further evaluation of his voiding dysfunction, but the patient states that he does not have the means for transportation. He wishes to leave the Aceves catheter in place. Arrangements will be made for him to undergo office cystoscopy for bladder cancer surveillance.
[2023-12-14 11:45] LABS: Glucose,Whole Blood 183 mg/dL (70-110)
[2023-12-14 13:08] VITALS: BP 163/83; PULSE 63; RESP 17; TEMP 98.3
== END 2023-12-14 13:23 | DRG 872 ==
LOC: EC 10:45 → 5NMEDONC 17:40
PROVIDERS: ADMIT Internal Medicine Geriatric Medicine; ATTEND Internal Medicine Geriatric Medicine
DX: A41.81 Sepsis due to Enterococcus (principal); N39.0 Urinary tract infection, site not specified; F03.93 Unspecified dementia, unspecified severity, with mood disturbance; F03.94 Unspecified dementia, unspecified severity, with anxiety; N17.9 Acute kidney failure, unspecified; N13.6 Pyonephrosis; C67.9 Malignant neoplasm of bladder, unspecified; D50.9 Iron deficiency anemia, unspecified; E11.22 Type 2 diabetes mellitus with diabetic chronic kidney disease; E11.51 Type 2 diabetes mellitus with diabetic peripheral angiopathy without gangrene; Z86.79 Personal history of other diseases of the circulatory system; E78.5 Hyperlipidemia, unspecified; F32.A Depression, unspecified; I12.9 Hypertensive chronic kidney disease with stage 1 through stage 4 chronic kidney disease, or unspecified chronic kidney disease; I25.10 Atherosclerotic heart disease of native coronary artery without angina pectoris; I25.2 Old myocardial infarction; R33.9 Retention of urine, unspecified; N40.1 Benign prostatic hyperplasia with lower urinary tract symptoms; N18.30 Chronic kidney disease, stage 3 unspecified; E87.70 Fluid overload, unspecified; N39.498 Other specified urinary incontinence; Z85.828 Personal history of other malignant neoplasm of skin; Z87.440 Personal history of urinary (tract) infections; Z86.73 Personal history of transient ischemic attack (TIA), and cerebral infarction without residual deficits; Z79.82 Long term (current) use of aspirin; Z79.84 Long term (current) use of oral hypoglycemic drugs; Z79.1 Long term (current) use of non-steroidal anti-inflammatories (NSAID); Z11.52 Encounter for screening for COVID-19; Z91.81 History of falling; Z86.010 Personal history of colon polyps; G89.29 Other chronic pain; Z95.5 Presence of coronary angioplasty implant and graft; G47.33 Obstructive sleep apnea (adult) (pediatric); R09.02 Hypoxemia; Z79.899 Other long term (current) drug therapy; Z82.49 Family history of ischemic heart disease and other diseases of the circulatory system; Z83.3 Family history of diabetes mellitus
CPT/HCPCS: 36415; 71046; 71275; 80053; 81001; 83605; 83735; 83880; 84484; 85025; 85027; 85610; 85730; 87040; 87077; 87086; 87186; 87636; 93005; 94640; 96361; 96365; 96375; 99285

== ENCOUNTER 2024-01-05 14:04 | Inpatient (IN) | payer MEDICARE, BC ==
--- NOTE | 2024-01-05 14:54 | XR ---
EXAMINATION TYPE: XR chest 2V DATE OF EXAM: 01/05/2024 2:45 PM CLINICAL INDICATION:Male, 88 years old with history of Weakness; COMPARISON: Chest radiographs from 12/11/2023. TECHNIQUE: XR chest 2V Frontal and lateral views of the chest. FINDINGS: Lungs/Pleura: There is no evidence of pleural effusion, focal consolidation, or pneumothorax. Pulmonary vascularity: Unremarkable. Heart/mediastinum: Cardiomediastinal silhouette is unremarkable. Musculoskeletal: No acute osseous pathology. IMPRESSION: No acute cardiopulmonary disease/process.
[2024-01-05 15:31] LABS: Appearance,Urine Cloudy (Clear); Bacteria,Urine Rare /hpf; Bilirubin,Urine Negative (Negative); Blood,Urine Small (Negative); Color,Urine Colorless; Glucose,Urine (UA) 4+ (Negative); Ketones,Urine Negative (Negative); Leukocyte Esterase,Urine Large (Negative); Mucus,Urine Rare /hpf; Nitrite,Urine Positive (Negative); PH, Urine 5.5 (5.0-8.0); Protein,Urine 1+ (Negative); RBC,Urine 6 /hpf (0-5); Specific Gravity,Urine 1.023 (1.001-1.035); Urobilinogen,Urine <2.0 mg/dL (<2.0); WBC,Urine 115 /hpf (0-5)
[2024-01-05 15:32] LABS: Basophils # (A) 0.1 k/uL (0-0.2); Basophils % (A) 0 %; Eosinophils % (A) 0 %; HCT 40.1 % (39.0-53.0); HGB 12.9 gm/dL (13.0-17.5); Lymphocytes # (A) 1.2 k/uL (1.0-4.8); Lymphocytes % (A) 9 %; MCH 31.3 pg (25.0-35.0); MCV 97.9 fL (80.0-100.0); Mean Platelet Volume 7.7; Monocytes % (A) 8 %; Neutrophils # (A) 10.4 k/uL (1.3-7.7); Neutrophils % (A) 80 %; Platelet Count 305 k/uL (150-450); RDW 12.6 % (11.5-15.5); WBC 13.1 k/uL (3.8-10.6)
[2024-01-05] MEDS: KETOROLAC 15 MG/ML 1 ML VIAL IVP STA (15:35)
[2024-01-05 15:38] LABS: ALT 19 U/L (4-49); AST 19 U/L (17-59); African American GFR (CKD) 37 (>60 ml/min/1.73 sqM); Albumin 3.1 g/dL (3.5-5.0); Alkaline Phosphatase 108 U/L (38-126); Anion Gap 10 mmol/L; Blood Urea Nitrogen 26 mg/dL (9-20); Carbon Dioxide 19 mmol/L (22-30); Chloride 102 mmol/L (98-107); Glucose 209 mg/dL (74-99); Magnesium 1.9 mg/dL (1.6-2.3); Non-African American GFR(CKD) 32 (>60 ml/min/1.73 sqM); Phosphorus 3.2 mg/dL (2.5-4.5); Potassium 4.4 mmol/L (3.5-5.1); Sodium 131 mmol/L (137-145); Total Bilirubin 0.6 mg/dL (0.2-1.3); Total Protein 6.4 g/dL (6.3-8.2)
[2024-01-05] MEDS: SODIUM CHLORIDE 0.9% 500 ML 500 ML IV STA (15:38)
--- NOTE | 2024-01-05 16:54 | ED ---
Male Urogenital HPI - General Chief complaint: Urogenital Stated complaint: UTI Time Seen by Provider: 01/05/24 14:16 Source: EMS Mode of arrival: EMS - History of Present Illness Initial comments: This 88-year-old male presents with complaint of likely urinary tract infection. He states that he can normally tell when he is developing a urinary tract infection. He does have pain down in his penile region. He denies any actual fevers or chills. He states that he feels extremely weak. He has had some nausea as well. He apparently has been having urinary tract infections every 3 to 4 weeks. He was just hospitalized 3 weeks ago for similar. He has been seeing urology as well. He does have a history of previous bladder cancer diagnosed about 4 years ago. He does have a indwelling Aceves catheter as well. He denies any other complaints or modifying factors. - Related Data Home Medications Medication Instructions Recorded Confirmed Cyanocobalamin (Vitamin B-12) 1,000 mcg PO DAILY@0804/17/17 01/05/24 [Vitamin B-12] Finasteride [Proscar] 5 mg PO DAILY@79912/01/18 01/05/24 Tamsulosin HCl [Flomax] 0.4 mg PO BID@799,209911/18/21 01/05/24 Cholecalciferol [Vitamin D3 (25 25 mcg PO DAILY@79903/19/22 01/05/24 Mcg = 1000 Iu)] Acetaminophen/Diphenhydramine 2 tab PO HS@212912/11/23 01/05/24 [Tylenol PM 500-25mg] Atorvastatin [Lipitor] 10 mg PO HS@209912/11/23 01/05/24 Dextran/Hypromellose/Glycerin 2 drop BOTH EYES BID@799,209912/11/23 01/05/24 [Genteal Tears 0.1%-0.2%-0.3%] Donepezil [Aricept] 10 mg PO HS@209912/11/23 01/05/24 Escitalopram [Lexapro] 10 mg PO DAILY@79912/11/23 01/05/24 Famotidine [Pepcid] 40 mg PO DAILY@79912/11/23 01/05/24 Ferrous Sulfate [Iron (65 MG 325 mg PO DAILY@0800 12/11/23 01/05/24 Elemental)] L.acidoph,Paracasei, B.lactis 1 cap PO BID@0800,1700 12/11/23 01/05/24 [Probiotic] Magnesium Hydroxide [Milk of 7,200 mg PO Q48H PRN 12/11/23 01/05/24 Magnesia Concentrate] Na Phos,M-B/Na Phos,Di-Ba [Fleet 133 ml RECTAL DAILY PRN 12/11/23 01/05/24 Adult] Ocusoft Lid Scrub Original 1 applic BOTH EYES HS 12/11/23 01/05/24 External Pad (Eyelid Cleansers) Ondansetron [Zofran] 4 mg PO Q6H PRN 12/11/23 01/05/24 Triamcinolone 0.1% Cream [Kenalog 1 applicatio TOPICAL BID@0800,2100 12/11/23 01/05/24 0.1% Cream] bisacodyL [Dulcolax] 10 mg RECTAL DAILY PRN 12/11/23 01/05/24 glipiZIDE [Glucotrol] 10 mg PO BID@0800,1700 12/11/23 01/05/24 Acetaminophen [Tylenol Arthritis] 650 mg PO Q6H PRN 01/05/24 01/05/24 Aspirin 81 mg PO DAILY@0800 01/05/24 01/05/24 Cefuroxime [Ceftin] 250 mg PO BID@0800,2000 01/05/24 01/05/24 Dapagliflozin Propanediol [Farxiga] 5 mg PO DAILY@0800 01/05/24 01/05/24 Glucerna Shake 120 ml PO DAILY@0800 01/05/24 01/05/24 INSULIN ASPART (NovoLOG) [NovoLOG See Protocol SQ 01/05/24 01/05/24 (formulary)] ACHS@07,11,1630,2130 Allergies Allergy/AdvReac Type Severity Reaction Status Date / Time No Known Allergies Allergy Verified 01/05/24 17:01 Review of Systems ROS Statement: Those systems with pertinent positive or pertinent negative responses have been documented in the HPI. ROS Other: All systems not noted in ROS Statement are negative. Past Medical History Past Medical History: Coronary Artery Disease (CAD), Cancer, CVA/TIA, Diabetes Mellitus, Hyperlipidemia, Hypertension, Myocardial Infarction (AL), Prostate Disorder, Sleep Apnea/CPAP/BIPAP, Vascular Disorder Additional Past Medical History / Comment(s): TIA in 2015, MICHAEL without device, CKD stage III, chronic low back pain, migraines in past, vertigo, balance issues, falls, BPH, benign colon polyp, diverticular disease, vascular disease with surgery-AAA repair and R leg bypass, skin cancer with removal, superficial bladder cancer Last Myocardial Infarction Date:: 04/17/17 History of Any Multi-Drug Resistant Organisms: None Reported Past Surgical History: Adenoidectomy, Heart Catheterization With Stent, Tonsillectomy Additional Past Surgical History / Comment(s): 12/07/18 endovascular repair/stent graft infra renal aorta, R leg bypass surgery after AAA repair at [facility], colonoscopy/polypectomy, basal cell cancer removed from forehead, bilateral cataract removals/lens implants, cystoscopy -biopsy for cancer Past Anesthesia/Blood Transfusion Reactions: Motion Sickness Additional Past Anesthesia/Blood Transfusion Reaction / Comment(s): . Date of Last Stent Placement:: 03/2017 Past Psychological History: Anxiety, Depression Smoking Status: Former smoker Past Alcohol Use History: None Reported Past Drug Use History: None Reported - Past Family History Brother(s) Family Medical History: No Reported History Sister(s) Family Medical History: No Reported History Son(s) Family Medical History: No Reported History Father Family Medical History: Diabetes Mellitus, Myocardial Infarction (AL), Vascular Disorder Additional Family Medical History / Comment(s): Father of a AL at the age of 76 or 77yrs. He was an alcoholic. Mother Family Medical History: Deep Vein Thrombosis (DVT), Pulmonary Embolus Additional Family Medical History / Comment(s): Mother at 42 yrs of age of "blood clot" in the lung and it went to the heart. General Exam - General Exam Comments Initial Comments: GENERAL: The patient is well nourished and well hydrated. VITAL SIGNS: Heart rate, blood pressure, respiratory rate reviewed as recorded in nurse's notes. EYES: Pupils are round and reactive. Extraocular movements are intact. No conjunctival / lid redness or swelling. ENT: No external evidence of injury, swelling, or ecchymosis. Airway is patent. Throat is clear. NECK: Nontender. No swelling or evidence of injury. No subcutaneous emphysema. Trachea is midline. No thyroid mass. HEART: Regular rate and rhythm. Good peripheral pulses. LUNGS/CHEST: Breath sounds clear and equal bilaterally. No rales, rhonchi, or wheezes. No ecchymosis, subcutaneous emphysema, or tenderness. ABDOMEN: Abdomen soft without tenderness. No palpable masses or organomegaly. No peritoneal signs. No abdominal wall swelling or ecchymosis. GENITOURINARY: Indwelling Aceves catheter noted. EXTREMITIES: No extremity tenderness. Normal muscle tone and function. No thor acolumbar tenderness. NEUROLOGIC: Sensation is grossly intact. Cranial nerve exam reveals face is s ymmetrical, tongue is midline, speech is clear. SKIN: No abrasions or ecchymosis is noted. No induration or masses noted. PSYCHIATRIC: Alert and oriented. Appropriate behavior and judgment. Course Vital Signs 01/05/24 01/05/24 01/05/24 14:09 15:51 17:31 Temperature 98.3 F Pulse Rate 81 73 78 Respiratory 18 20 18 Rate Blood Pressure 123/72 158/79 144/83 O2 Sat by Pulse 96 96 95 Oximetry Medical Decision Making - Medical Decision Making The patient was seen and examined. All diagnostics were reviewed. Old records were reviewed as well. Patient was just hospitalized several weeks ago with similar symptomatology. He had a urinalysis done which does show significant evidence of infection. White blood cell count is slightly elevated. Renal function studies are elevated which apparently is chronic for him. IV Rocephin is given. He also received a dose of Toradol. He is in no distress on recheck. It is felt as though he benefit from admission to the hospital for further treatment especially in light of his significant nausea and weakness. He potentially may benefit from daily prophylactic antibiotics to prevent urinary tract infections in the future. Urology consultation will be placed. Was pt. sent in by a medical professional or institution (, PA, PRIVACY DIRECTOR, urgent care, hospital, or snf...) When possible be specific @ -No Did you speak to anyone other than the patient for history (EMS, parent, family, police, friend...)? What history was obtained from this source @ -No Did you review nursing and triage notes (agree or disagree)? Why? @ -I reviewed and agree with nursing and triage notes Were old charts reviewed (outside hosp., previous admission, EMS record, old EKG, old radiological studies, urgent care reports/EKG's, snf records)? Report findings @ -Old charts were reviewed and additional past medical history is obtained. It appears as though he was just admitted several weeks ago for similar. Differential Diagnosis (chest pain, altered mental status, abdominal pain women, abdominal pain men, vaginal bleeding, weakness, fever, dyspnea, syncope, headache, dizziness, GI bleed, back pain, seizure, CVA, palpatations, mental health, musculoskeletal)? @ -Urinary tract infection, sepsis, weakness, nausea, indwelling Aceves catheter. EKG interpreted by me (3pts min.). @ -As above X-rays interpreted by me (1pt min.). @ -Chest x-ray was completed and does not show any acute process per my interpretation. CT interpreted by me (1pt min.). @ -None done U/S interpreted by me (1pt. min.). @ -None done What testing was considered but not performed or refused? (CT, X-rays, U/S, labs)? Why? @ -None What meds were considered but not given or refused? Why? @ -None Did you discuss the management of the patient with other professionals (professionals i.e. , PA, PRIVACY DIRECTOR, lab, RT, psych nurse, social welfare research worker, main entree cook and cashier, teacher, mail officer, egg caser)? Give summary @ -Case is discussed with Dr. Gan from internal medicine and he is agreeable with admission. Was smoking cessation discussed for >3mins.? @ -No Was critical care preformed (if so, how long)? @ -No Were there social determinants of health that impacted care today? How? (Homelessness, low income, unemployed, alcoholism, drug addiction, transportation, low edu. Level, literacy, decrease access to med. care, halfway, rehab)? @ -No Was there de-escalation of care discussed even if they declined (Discuss DNR or withdrawal of care, Hospice)? DNR status @ -No What co-morbidities impacted this encounter? (DM, HTN, Smoking, COPD, CAD, Cancer, CVA, ARF, Chemo, Hep., AIDS, mental health diagnosis, sleep apnea, morbid obesity)? @ -Recurrent urinary tract infections, history of bladder malignancy Was patient admitted / discharged? Hospital course, mention meds given and route, prescriptions, significant lab abnormalities, going to OR and other pertinent info. @ -Patient is admitted. Please see above. Undiagnosed new problem with uncertain prognosis? @ -No Drug Therapy requiring intensive monitoring for toxicity (Heparin, Nitro, Insulin, Cardizem)? @ -No Were any procedures done? @ -No Diagnosis/symptom? @ -Urinary tract infection, weakness, nausea. Acute, or Chronic, or Acute on Chronic? @ -Acute on chronic Uncomplicated (without systemic symptoms) or Complicated (systemic symptoms)? @ -Uncomplicated Side effects of treatment? @ -No Exacerbation, Progression, or Severe Exacerbation? @ -No Poses a threat to life or bodily function? How? (Chest pain, USA, AL, pneumonia, PE, COPD, DKA, ARF, appy, cholecystitis, CVA, Diverticulitis, Homicidal, Suicidal, threat to staff... and all critical care pts) @ -No - Lab Data Result diagrams: 01/05/24 15:08 01/05/24 15:08 Lab Results 01/05/24 01/05/24 01/05/24 Range/Units 15:08 15:08 15:08 WBC 13.1 H (3.8-10.6) k/uL RBC 4.10 L (4.30-5.90) m/uL Hgb 12.9 L (13.0-17.5) gm/dL Hct 40.1 (39.0-53.0) % MCV 97.9 (80.0-100.0) fL MCH 31.3 (25.0-35.0) pg MCHC 32.0 (31.0-37.0) g/dL RDW 12.6 (11.5-15.5) % Plt Count 305 (150-450) k/uL MPV 7.7 Neutrophils % 80 % Lymphocytes % 9 % Monocytes % 8 % Eosinophils % 0 % Basophils % 0 % Neutrophils # 10.4 H (1.3-7.7) k/uL Lymphocytes # 1.2 (1.0-4.8) k/uL Monocytes # 1.0 (0-1.0) k/uL Eosinophils # 0.0 (0-0.7) k/uL Basophils # 0.1 (0-0.2) k/uL Sodium 131 L (137-145) mmol/L Potassium 4.4 (3.5-5.1) mmol/L Chloride 102 (98-107) mmol/L Carbon Dioxide 19 L (22-30) mmol/L Anion Gap 10 mmol/L BUN 26 H (9-20) mg/dL Creatinine 1.86 H (0.66-1.25) mg/dL Est GFR (CKD-EPI)AfAm 37 (>60 ml/min/1.73 sqM) Est GFR (CKD-EPI)NonAf 32 (>60 ml/min/1.73 sqM) Glucose 209 H (74-99) mg/dL Plasma Lactic Acid Zander 1.6 (0.7-2.0) mmol/L Calcium 9.0 (8.4-10.2) mg/dL Phosphorus 3.2 (2.5-4.5) mg/dL Magnesium 1.9 (1.6-2.3) mg/dL Total Bilirubin 0.6 (0.2-1.3) mg/dL AST 19 (17-59) U/L ALT 19 (4-49) U/L Alkaline Phosphatase 108 (38-126) U/L Total Protein 6.4 (6.3-8.2) g/dL Albumin 3.1 L (3.5-5.0) g/dL Urine Color Urine Appearance (Clear) Urine pH (5.0-8.0) Ur Specific [place] (1.001-1.035) Urine Protein (Negative) Urine Glucose (UA) (Negative) Urine Ketones (Negative) Urine Blood (Negative) Urine Nitrite (Negative) Urine Bilirubin (Negative) Urine Urobilinogen (<2.0) mg/dL Ur Leukocyte Esterase (Negative) Urine RBC (0-5) /hpf Urine WBC (0-5) /hpf Urine WBC Clumps (None) /hpf Urine Bacteria (None) /hpf Urine Mucus (None) /hpf 01/05/24 Range/Units 15:08 WBC (3.8-10.6) k/uL RBC (4.30-5.90) m/uL Hgb (13.0-17.5) gm/dL Hct (39.0-53.0) % MCV (80.0-100.0) fL MCH (25.0-35.0) pg MCHC (31.0-37.0) g/dL RDW (11.5-15.5) % Plt Count (150-450) k/uL MPV Neutrophils % % Lymphocytes % % Monocytes % % Eosinophils % % Basophils % % Neutrophils # (1.3-7.7) k/uL Lymphocytes # (1.0-4.8) k/uL Monocytes # (0-1.0) k/uL Eosinophils # (0-0.7) k/uL Basophils # (0-0.2) k/uL Sodium (137-145) mmol/L Potassium (3.5-5.1) mmol/L Chloride (98-107) mmol/L Carbon Dioxide (22-30) mmol/L Anion Gap mmol/L BUN (9-20) mg/dL Creatinine (0.66-1.25) mg/dL Est GFR (CKD-EPI)AfAm (>60 ml/min/1.73 sqM) Est GFR (CKD-EPI)NonAf (>60 ml/min/1.73 sqM) Glucose (74-99) mg/dL Plasma Lactic Acid Zander (0.7-2.0) mmol/L Calcium (8.4-10.2) mg/dL Phosphorus (2.5-4.5) mg/dL Magnesium (1.6-2.3) mg/dL Total Bilirubin (0.2-1.3) mg/dL AST (17-59) U/L ALT (4-49) U/L Alkaline Phosphatase (38-126) U/L Total Protein (6.3-8.2) g/dL Albumin (3.5-5.0) g/dL Urine Color Colorless Urine Appearance Cloudy (Clear) Urine pH 5.5 (5.0-8.0) Ur Specific [place] 1.023 (1.001-1.035) Urine Protein 1+ H (Negative) Urine Glucose (UA) 4+ H (Negative) Urine Ketones Negative (Negative) Urine Blood Small H (Negative) Urine Nitrite Positive (Negative) Urine Bilirubin Negative (Negative) Urine Urobilinogen <2.0 (<2.0) mg/dL Ur Leukocyte Esterase Large H (Negative) Urine RBC 6 H (0-5) /hpf Urine WBC 115 H (0-5) /hpf Urine WBC Clumps Many H (None) /hpf Urine Bacteria Rare H (None) /hpf Urine Mucus Rare H (None) /hpf Disposition Clinical Impression: UTI (urinary tract infection), Weakness, Leukocytosis, Chronic kidney disease, Hypertension, Nausea, Hyponatremia Disposition: ADMITTED IP TO THIS HOSP Is patient prescribed a controlled substance at d/c from ED?: No Referrals: Chinedu Gan MD [Primary Care Provider] - 1-2 days Time of Disposition: 16:54 Decision Date: 01/05/24 Decision Time: 16:54
[2024-01-05] MEDS: SODIUM CHLORIDE 0.9% 1,000 ML IV STA (17:22)
[2024-01-05] MEDS ORDERED: NALOXONE 0.4 MG/ML 1 ML VIAL IV PRN (18:04)
[2024-01-05] MEDS ORDERED: traMADol 50 MG TAB PO PRN (18:04)
[2024-01-05] MEDS ORDERED: ACETAMINOPHEN TAB 325 MG TAB PO PRN (18:04)
[2024-01-05] MEDS ORDERED: ONDANSETRON 4 MG/2 ML VIAL IVP PRN (18:04)
[2024-01-05] MEDS: ONDANSETRON 4 MG/2 ML VIAL IVP STA (18:11)
[2024-01-05] MEDS ORDERED: bisacodyL 10 MG SUPP RECTAL PRN (18:15)
[2024-01-05] MEDS ORDERED: NA PHOS,M-B/NA PHOS,DI-BA 133 ML ENEMA RECTAL PRN (18:15)
[2024-01-05] MEDS ORDERED: MAGNESIUM HYDROXIDE 2,400 MG/30 ML CUP PO PRN (18:15)
[2024-01-05] MEDS ORDERED: DEXTROSE 50% SYRINGE 50 ML IVP PRN (18:22)
[2024-01-05] MEDS: SODIUM CHLORIDE 0.9% 1,000 ML IV SCH (18:22)
[2024-01-05 19:29] LABS: Glucose,Whole Blood 169 mg/dL (70-110)
[2024-01-05] MEDS ORDERED: [UNRECOGNIZED DRUG - OTHER] BOTH EYES SCH (21:00)
[2024-01-05] MEDS: ACETAMINOPHEN TAB 500 MG TAB PO SCH (22:38)
[2024-01-05] MEDS: TAMSULOSIN 0.4 MG CAP.ER.24H PO SCH (22:38)
[2024-01-05] MEDS: ATORVASTATIN 10 MG TAB PO SCH (22:39)
[2024-01-05] MEDS: diphenhydrAMINE 25 MG CAP PO SCH (22:39)
[2024-01-05] MEDS: DONEPEZIL 10 MG TAB PO SCH (22:39)
[2024-01-05] MEDS: INSULIN ASPART (NovoLOG) 100 UNIT/ML VIAL SQ SCH (22:54)
[2024-01-05] MEDS: TRIAMCINOLONE 0.1% CREAM 80 GM TUBE TOPICAL SCH (23:43)
[2024-01-05] MEDS: ARTIFICIAL TEARS-HYPROMELLOSE DROPS 15 ML BTL BOTH EYES SCH (23:43)
[2024-01-06 05:34] LABS: Glucose,Whole Blood 146 mg/dL (70-110)
[2024-01-06] MEDS: INSULIN ASPART (NovoLOG) 100 UNIT/ML VIAL SQ SCH (06:17)
[2024-01-06] MEDS: PANTOPRAZOLE 40 MG TABLET PO SCH (06:30)
--- NOTE | 2024-01-06 07:54 | P.HPIM ---
History of Present Illness H&P Date: 01/05/24 HISTORY OF PRESENT ILLNESS: 88-year-old male 1 by the patient who was seen in [facility] for the last few months was hospitalized last in December 11 for sepsis and UTI along with dyspnea and shortness of breath really was in the emergency room at that time for severe shortness of breath found to have an sepsis with UTI was Treated and kept in the hospital for few days seen urology patient is known to have bladder cancer was doing cystoscopy on long-term over a year when he developed to have severe incontinence require catheterization which patient continue to have indwelling catheter since. Patient was stabilized this past time and found with his culture to have Enterococcus facialis susceptible to many antibiotic which patient was on Rocephin initially and sent home on Cipro which completed 10 days. For the last 48 hours developed have slight fever chills with worsening lower abdominal pain along with slight confusion ended up being sent to the emergency department at [facility] where he was seen and evaluated temperature was normal white blood cell was elevated at 15,100 his UA was positive chemistry shows creatinine of 1.86 with GFR 52 which is slightly bit higher than last time. Culture was performed patient was started on 1 g of Rocephin and admitted to the hospital shortly after the above problem. REVIEW OF SYSTEMS: CONSTITUTIONAL: Well-developed no acute respiratory distress. EYES: No icterus sclerae, no conjunctivitis. EARS, NOSE, MOUTH, THROAT, and FACE: No sore throat, lymphadenopathy, carotid bruits or deformity. RESPIRATORY: Slight complaint of shortness of breath no cough or wheezes. CARDIOVASCULAR: Positive PND orthopnea palpitation no angina. GASTROINTESTINAL: No Abd pain, Nausea or vomiting, no Diarrhea or constipation, No GI Bleed, no distention or masses. GENITOURINARY: Recurrent UTI and urosepsis. Indwelling catheter.. INTEGUMENT/BREAST: Negative for any muscular injury with mild osteoarthritis.. HEMATOLOGIC/LYMPHATIC: Negative for bleed or purpura. MUSCULOSKELTAL: Generalized arthralgia and myalgia. NEURLOGICAL: No LOC, Sz or syncope, blurred vision dizziness or abnormality. Slight confusion.. BEHAVIORAL/PSYCH: Negative. ENDOCRINE: Negative. PHYSICAL EXAMINATION: General Appearance: Alert, cooperative, no distress, appears stated age. Slight confusion. Neck HEENT: Supple, no lymphadenopathy, no thyroid enlargement, no carotid bruits. Lungs: Decreased expansion with inspiration positive rhonchi with slight wheezes no crackles. Chest Wall: Decreased expansion with deep inspiration no tenderness and no deformity was found on exam, no costochondral pain or discomfort. Heart: Regular rate and rhythm, S1, S2 normal, no murmur, rub or gallop. Back: Symmetric, no curvature, ROM normal, no CVA tenderness. Slight scoliosis. Abdomen: Soft, non-tender, bowel sounds active all four quadrants, positive lower abdominal discomfort no masses or organomegaly scar tissue on the lower abdominal region area. Extremities: Extremities trace edema with slight discoloration with decreased pulse bilaterally. Genitourinary: Indwelling catheter with a urine draining slightly red cloudy. Pulses: Decreased bilaterally. Skin: Skin color, texture, tugor normal, no rashes or lesions. Neurologic: Alert oriented x3 cranial nerves II through XII intact, no motor deficit, positive abnormal gait. ASSESSMENT AND PLAN: _Sepsis and UTI: Admit patient to the hospital, continue hydration, culture will be done patient be on Rocephin initially till the culture is back. _Recurrent urinary tract infection: Remain on tamsulosin and finasteride repeat UA more often to finalize the exam early if possible. _Bladder cancer: Patient will require to go for cystoscopy was supposed to finish his antibiotic making arrangement to go for follow-up as an outpatient and scheduled at that point. Patient return to the hospital a month later with the same thing. _Stage III chronic kidney disease with slight decline continue gentle hydration repeat chemistry in the next 24 hours. _Type 2 diabetes: Has been on oral hypoglycemic agent will continue Accu-Cheks sliding scale coverage. -Severe chronic peripheral arterial disease: Post abdominal aortic aneurysm repair with angioplasty of the lower extremity as well. -Atherosclerotic heart disease post PA in the past continue to watch for any recurrent chest pain also continue to watch for any recurrent diastolic or systolic heart failure. Patient might benefit any diuretics as well. _Iron deficiency anemia: Continue iron supplement along with H2 kar CBC redone again in the morning. -Mild memory loss with dementia: Remain on donepezil continue medication. -Hyperlipidemia: Remain on atorvastatin 10 mg daily. -BPH: With no sign of obstruction remain on Flomax and Proscar continue both medication watch patient urine for any residual every shift. -GI prophylaxis: Patient be on Pepcid. -DVT prophylaxis: Knee-high OLGA hose and Venodyne boots. -CODE STATUS: DO NOT RESUSCITATE. - Admit patient to the inpatient service for more than 2 night stay. Past Medical History Past Medical History: Coronary Artery Disease (CAD), Cancer, CVA/TIA, Diabetes Mellitus, Hyperlipidemia, Hypertension, Myocardial Infarction (PA), Prostate Disorder, Sleep Apnea/CPAP/BIPAP, Vascular Disorder Additional Past Medical History / Comment(s): TIA in 2015, MICHAEL without device, CKD stage III, chronic low back pain, migraines in past, vertigo, balance issues, falls, BPH, benign colon polyp, diverticular disease, vascular disease with surgery-AAA repair and R leg bypass, skin cancer with removal, superficial bladder cancer Last Myocardial Infarction Date:: 04/17/17 History of Any Multi-Drug Resistant Organisms: None Reported Past Surgical History: Adenoidectomy, Heart Catheterization With Stent, Tonsillectomy Additional Past Surgical History / Comment(s): 12/07/18 endovascular repair/stent graft infra renal aorta, R leg bypass surgery after AAA repair at [facility], colonoscopy/polypectomy, basal cell cancer removed from forehead, bilateral cataract removals/lens implants, cystoscopy -biopsy for cancer Past Anesthesia/Blood Transfusion Reactions: Motion Sickness Additional Past Anesthesia/Blood Transfusion Reaction / Comment(s): . Date of Last Stent Placement:: 03/2017 Past Psychological History: Anxiety, Depression Smoking Status: Former smoker Past Alcohol Use History: None Reported Past Drug Use History: None Reported - Past Family History Brother(s) Family Medical History: No Reported History Sister(s) Family Medical History: No Reported History Son(s) Family Medical History: No Reported History Father Family Medical History: Diabetes Mellitus, Myocardial Infarction (PA), Vascular Disorder Additional Family Medical History / Comment(s): Father of a PA at the age of 76 or 77yrs. He was an alcoholic. Mother Family Medical History: Deep Vein Thrombosis (DVT), Pulmonary Embolus Additional Family Medical History / Comment(s): Mother at 42 yrs of age of "blood clot" in the lung and it went to the heart. Medications and Allergies Home Medications Medication Instructions Recorded Confirmed Type Cyanocobalamin (Vitamin B-12) 1,000 mcg PO DAILY@0800 04/17/17 01/05/24 History [Vitamin B-12] Finasteride [Proscar] 5 mg PO DAILY@0800 12/01/18 01/05/24 History Tamsulosin HCl [Flomax] 0.4 mg PO BID@0800,209911/18/21 01/05/24 History Cholecalciferol [Vitamin D3 (25 25 mcg PO DAILY@0800 03/19/22 01/05/24 History Mcg = 1000 Iu)] Acetaminophen/Diphenhydramine 2 tab PO HS@212912/11/23 01/05/24 History [Tylenol PM 500-25mg] Atorvastatin [Lipitor] 10 mg PO HS@209912/11/23 01/05/24 History Dextran/Hypromellose/Glycerin 2 drop BOTH EYES BID@00,209912/11/23 01/05/24 History [Genteal Tears 0.1%-0.2%-0.3%] Donepezil [Aricept] 10 mg PO HS@209912/11/23 01/05/24 History Escitalopram [Lexapro] 10 mg PO DAILY@0812/11/23 01/05/24 History Famotidine [Pepcid] 40 mg PO DAILY@0800 12/11/23 01/05/24 History Ferrous Sulfate [Iron (65 MG 325 mg PO DAILY@79912/11/23 01/05/24 History Elemental)] L.acidoph,Paracasei, B.lactis 1 cap PO BID@0800,1700 12/11/23 01/05/24 History [Probiotic] Magnesium Hydroxide [Milk of 7,200 mg PO Q48H PRN 12/11/23 01/05/24 History Magnesia Concentrate] Na Phos,M-B/Na Phos,Di-Ba [Fleet 133 ml RECTAL DAILY PRN 12/11/23 01/05/24 History Adult] Ocusoft Lid Scrub Original 1 applic BOTH EYES HS 12/11/23 01/05/24 History External Pad (Eyelid Cleansers) Ondansetron [Zofran] 4 mg PO Q6H PRN 12/11/23 01/05/24 History Triamcinolone 0.1% Cream [Kenalog 1 applicatio TOPICAL BID@0800,209912/11/23 01/05/24 History 0.1% Cream] bisacodyL [Dulcolax] 10 mg RECTAL DAILY PRN 12/11/23 01/05/24 History glipiZIDE [Glucotrol] 10 mg PO BID@0800,1700 12/11/23 01/05/24 History Acetaminophen [Tylenol Arthritis] 650 mg PO Q6H PRN 01/05/24 01/05/24 History Aspirin 81 mg PO DAILY@0800 01/05/24 01/05/24 History Cefuroxime [Ceftin] 250 mg PO BID@0800,199901/05/24 01/05/24 History Dapagliflozin Propanediol [Farxiga] 5 mg PO DAILY@0800 01/05/24 01/05/24 History Glucerna Shake 120 ml PO DAILY@0800 01/05/24 01/05/24 History INSULIN ASPART (NovoLOG) [NovoLOG See Protocol SQ 01/05/24 01/05/24 History (formulary)] ACHS@07,11,1630,2130 Allergies Allergy/AdvReac Type Severity Reaction Status Date / Time No Known Allergies Allergy Verified 01/05/24 17:01 Physical Exam Vitals: Vital Signs Temp Pulse Resp BP Pulse Ox 01/05/24 20:04 97.3 F L 99 18 171/84 96 01/05/24 20:03 98 18 177/96 95 01/05/24 19:00 85 16 146/94 93 L 01/05/24 17:31 78 18 144/83 95 01/05/24 15:51 73 20 158/79 96 01/05/24 14:09 98.3 F 81 18 123/72 96 Intake and Output 01/05/24 01/05/24 01/05/24 06:59 14:59 22:59 Other: Weight 75.296 kg Results CBC & Chem 7: 01/05/24 15:08 01/05/24 15:08 Labs: Abnormal Lab Results - Last 24 Hours (Table) 01/05/24 01/05/24 01/05/24 Range/Units 15:08 15:08 15:08 WBC 13.1 H (3.8-10.6) k/uL RBC 4.10 L (4.30-5.90) m/uL Hgb 12.9 L (13.0-17.5) gm/dL Neutrophils # 10.4 H (1.3-7.7) k/uL Sodium 131 L (137-145) mmol/L Carbon Dioxide 19 L (22-30) mmol/L BUN 26 H (9-20) mg/dL Creatinine 1.86 H (0.66-1.25) mg/dL Glucose 209 H (74-99) mg/dL POC Glucose (mg/dL) (70-110) mg/dL Albumin 3.1 L (3.5-5.0) g/dL Urine Protein 1+ H (Negative) Urine Glucose (UA) 4+ H (Negative) Urine Blood Small H (Negative) Ur Leukocyte Esterase Large H (Negative) Urine RBC 6 H (0-5) /hpf Urine WBC 115 H (0-5) /hpf Urine WBC Clumps Many H (None) /hpf Urine Bacteria Rare H (None) /hpf Urine Mucus Rare H (None) /hpf 01/05/24 Range/Units 19:27 WBC (3.8-10.6) k/uL RBC (4.30-5.90) m/uL Hgb (13.0-17.5) gm/dL Neutrophils # (1.3-7.7) k/uL Sodium (137-145) mmol/L Carbon Dioxide (22-30) mmol/L BUN (9-20) mg/dL Creatinine (0.66-1.25) mg/dL Glucose (74-99) mg/dL POC Glucose (mg/dL) 169 H (70-110) mg/dL Albumin (3.5-5.0) g/dL Urine Protein (Negative) Urine Glucose (UA) (Negative) Urine Blood (Negative) Ur Leukocyte Esterase (Negative) Urine RBC (0-5) /hpf Urine WBC (0-5) /hpf Urine WBC Clumps (None) /hpf Urine Bacteria (None) /hpf Urine Mucus (None) /hpf
[2024-01-06] MEDS ORDERED: NON FORMULARY DRUG (Glucerna Shake 1 CAN Ml) PO SCH (08:00)
[2024-01-06] MEDS ORDERED: FAMOTIDINE 20 MG TAB PO SCH (09:00)
[2024-01-06] MEDS: ASPIRIN 81 MG PO SCH (09:26)
[2024-01-06] MEDS: FINASTERIDE 5 MG TAB PO SCH (09:26)
[2024-01-06] MEDS: CYANOCOBALAMIN 500 MCG TAB PO SCH (09:26)
[2024-01-06] MEDS: glipiZIDE 10 MG TAB PO SCH (09:26)
[2024-01-06] MEDS: CHOLECALCIFEROL 25 MCG (1000 IU) TABLET PO SCH (09:27)
[2024-01-06] MEDS: ENOXAPARIN 40 MG/0.4 ML SYRINGE SQ SCH (09:27)
[2024-01-06] MEDS: FERROUS SULFATE 325 MG TAB PO SCH (09:27)
[2024-01-06] MEDS: FAMOTIDINE 20 MG TAB PO SCH (09:27)
[2024-01-06] MEDS: LACTOBACILLUS ACIDOPHILUS/PECT 1 EACH CAPSULE PO SCH (09:27)
[2024-01-06] MEDS: DAPAGLIFLOZIN PROPANEDIOL 5 MG TABLET PO SCH (09:28)
[2024-01-06] MEDS: ESCITALOPRAM 10 MG TAB PO SCH (09:28)
[2024-01-06] MEDS: CIPROFLOXACIN HCL 250 MG TAB PO SCH (10:22)
[2024-01-06 11:46] LABS: Glucose,Whole Blood 210 mg/dL (70-110)
--- NOTE | 2024-01-06 13:46 | P.GSCN ---
History of Present Illness Consult date: 01/06/24 Reason for Consult: Chronic Aceves, possible UTI Requesting physician: Chinedu Gan History of present illness: The patient is an 88-year-old white male known to our service. He has a history of bladder cancer and was last seen by Dr. Mohr in March 2022. He underwent transurethral resection of bladder tumor in September 2020, revealing high-grade, noninvasive urothelial carcinoma. Ultrasound in February 2022 showed mild to moderate right hydronephrosis, moderate to severe left hydronephrosis. Patient was found to have a small capacity bladder. A trial of Myrbetriq was unsuccessful. Although he had a history of urinary retention, it appears that a Aceves catheter was placed for management of lower urinary tract symptoms and incontinence. The patient states that he has had an indwelling Aceves catheter for almost 2 years. It was initially changed on a monthly basis, but now biweekly to reduce the risk of UTIs. It appears that his most recent cystoscopy was in October 2021. He was hospitalized last month with similar symptomatology. Urine culture showed Enterococcus, as it has in the past 2 years. He was advised to follow-up with Dr. Mohr for cystoscopy, but this has not been done. Review of Systems - Constitutional Reports chills, Reports fever - Genitourinary Reports dysuria Past Medical History Past Medical History: Coronary Artery Disease (CAD), Cancer, CVA/TIA, Diabetes M ellitus, Hyperlipidemia, Hypertension, Myocardial Infarction (GA), Prostate Disorder, Sleep Apnea/CPAP/BIPAP, Vascular Disorder Additional Past Medical History / Comment(s): TIA in 2014, MICHAEL without device, CKD stage III, chronic low back pain, migraines in past, vertigo, balance issues, falls, BPH, benign colon polyp, diverticular disease, vascular disease with surgery-AAA repair and R leg bypass, skin cancer with removal, superficial bladder cancer Last Myocardial Infarction Date:: 04/17/17 History of Any Multi-Drug Resistant Organisms: None Reported Past Surgical History: Adenoidectomy, Heart Catheterization With Stent, Tonsillectomy Additional Past Surgical History / Comment(s): 12/07/18 endovascular repair/stent graft infra renal aorta, R leg bypass surgery after AAA repair at [facility], colonoscopy/polypectomy, basal cell cancer removed from forehead, bilateral cataract removals/lens implants, cystoscopy -biopsy for cancer Past Anesthesia/Blood Transfusion Reactions: Motion Sickness Additional Past Anesthesia/Blood Transfusion Reaction / Comm: . Date of Last Stent Placement:: 03/2017 Past Psychological History: Anxiety, Depression Additional Psychological History / Comment(s): . Smoking Status: Former smoker Past Alcohol Use History: None Reported Additional Past Alcohol Use History / Comment(s): Pt started smoking in 1957 and quit in 1986. smoked 1ppd Past Drug Use History: None Reported - Past Family History Brother(s) Family Medical History: No Reported History Sister(s) Family Medical History: No Reported History Son(s) Family Medical History: No Reported History Father Family Medical History: Diabetes Mellitus, Myocardial Infarction (GA), Vascular Disorder Additional Family Medical History / Comment(s): Father of a GA at the age of 76 or 77yrs. He was an alcoholic. Mother Family Medical History: Deep Vein Thrombosis (DVT), Pulmonary Embolus Additional Family Medical History / Comment(s): Mother at 42 yrs of age of "blood clot" in the lung and it went to the heart. Medications and Allergies Home Medications Medication Instructions Recorded Confirmed Type Cyanocobalamin (Vitamin B-12) 1,000 mcg PO DAILY@0800 04/17/17 01/05/24 History [Vitamin B-12] Finasteride [Proscar] 5 mg PO DAILY@0800 12/01/18 01/05/24 History Tamsulosin HCl [Flomax] 0.4 mg PO BID@0800,209911/18/21 01/05/24 History Cholecalciferol [Vitamin D3 (25 25 mcg PO DAILY@0800 03/19/22 01/05/24 History Mcg = 1000 Iu)] Acetaminophen/Diphenhydramine 2 tab PO HS@212912/11/23 01/05/24 History [Tylenol PM 500-25mg] Atorvastatin [Lipitor] 10 mg PO HS@209912/11/23 01/05/24 History Dextran/Hypromellose/Glycerin 2 drop BOTH EYES BID@0800,209912/11/23 01/05/24 History [Genteal Tears 0.1%-0.2%-0.3%] Donepezil [Aricept] 10 mg PO HS@209912/11/23 01/05/24 History Escitalopram [Lexapro] 10 mg PO DAILY@0800 12/11/23 01/05/24 History Famotidine [Pepcid] 40 mg PO DAILY@0800 12/11/23 01/05/24 History Ferrous Sulfate [Iron (65 MG 325 mg PO DAILY@0800 12/11/23 01/05/24 History Elemental)] L.acidoph,Paracasei, B.lactis 1 cap PO BID@0800,1700 12/11/23 01/05/24 History [Probiotic] Magnesium Hydroxide [Milk of 7,200 mg PO Q48H PRN 12/11/23 01/05/24 History Magnesia Concentrate] Na Phos,M-B/Na Phos,Di-Ba [Fleet 133 ml RECTAL DAILY PRN 12/11/23 01/05/24 History Adult] Ocusoft Lid Scrub Original 1 applic BOTH EYES HS 12/11/23 01/05/24 History External Pad (Eyelid Cleansers) Ondansetron [Zofran] 4 mg PO Q6H PRN 12/11/23 01/05/24 History Triamcinolone 0.1% Cream [Kenalog 1 applicatio TOPICAL BID@0800,2100 12/11/23 01/05/24 History 0.1% Cream] bisacodyL [Dulcolax] 10 mg RECTAL DAILY PRN 12/11/23 01/05/24 History glipiZIDE [Glucotrol] 10 mg PO BID@0800,1700 12/11/23 01/05/24 History Acetaminophen [Tylenol Arthritis] 650 mg PO Q6H PRN 01/05/24 01/05/24 History Aspirin 81 mg PO DAILY@0800 01/05/24 01/05/24 History Cefuroxime [Ceftin] 250 mg PO BID@0800,199901/05/24 01/05/24 History Dapagliflozin Propanediol [Farxiga] 5 mg PO DAILY@0800 01/05/24 01/05/24 History Glucerna Shake 120 ml PO DAILY@0800 01/05/24 01/05/24 History INSULIN ASPART (NovoLOG) [NovoLOG See Protocol SQ 01/05/24 01/05/24 History (formulary)] ACHS@07,11,1630,2130 Allergies Allergy/AdvReac Type Severity Reaction Status Date / Time No Known Allergies Allergy Verified 01/05/24 17:01 Surgical - Exam Vital Signs Temp Pulse Resp BP Pulse Ox 98.3 F 81 18 123/72 96 01/05/24 14:09 01/05/24 14:09 01/05/24 14:09 01/05/24 14:09 01/05/24 14:09 - General well developed, well nourished, no distress - Respiratory normal respiratory effort - Abdomen Abdomen: soft, non tender, no guarding, no rigid, no rebound - Genitourinary normal penis with no external lesions, testicles non-tender - Psychiatric oriented to time, oriented to person, oriented to place, speech is normal, memory intact Results - Labs 01/05/24 15:08 01/05/24 15:08 Abnormal Lab Results - Last 24 Hours (Table) 01/05/24 01/05/24 01/05/24 Range/Units 15:08 15:08 15:08 WBC 13.1 H (3.8-10.6) k/uL RBC 4.10 L (4.30-5.90) m/uL Hgb 12.9 L (13.0-17.5) gm/dL Neutrophils # 10.4 H (1.3-7.7) k/uL Sodium 131 L (137-145) mmol/L Carbon Dioxide 19 L (22-30) mmol/L BUN 26 H (9-20) mg/dL Creatinine 1.86 H (0.66-1.25) mg/dL Glucose 209 H (74-99) mg/dL POC Glucose (mg/dL) (70-110) mg/dL Albumin 3.1 L (3.5-5.0) g/dL Urine Protein 1+ H (Negative) Urine Glucose (UA) 4+ H (Negative) Urine Blood Small H (Negative) Ur Leukocyte Esterase Large H (Negative) Urine RBC 6 H (0-5) /hpf Urine WBC 115 H (0-5) /hpf Urine WBC Clumps Many H (None) /hpf Urine Bacteria Rare H (None) /hpf Urine Mucus Rare H (None) /hpf 01/05/24 01/06/24 Range/Units 19:27 05:31 WBC (3.8-10.6) k/uL RBC (4.30-5.90) m/uL Hgb (13.0-17.5) gm/dL Neutrophils # (1.3-7.7) k/uL Sodium (137-145) mmol/L Carbon Dioxide (22-30) mmol/L BUN (9-20) mg/dL Creatinine (0.66-1.25) mg/dL Glucose (74-99) mg/dL POC Glucose (mg/dL) 169 H 146 H (70-110) mg/dL Albumin (3.5-5.0) g/dL Urine Protein (Negative) Urine Glucose (UA) (Negative) Urine Blood (Negative) Ur Leukocyte Esterase (Negative) Urine RBC (0-5) /hpf Urine WBC (0-5) /hpf Urine WBC Clumps (None) /hpf Urine Bacteria (None) /hpf Urine Mucus (None) /hpf Diabetes panel 01/05/24 Range/Units 15:08 Sodium 131 L (137-145) mmol/L Potassium 4.4 (3.5-5.1) mmol/L Chloride 102 (98-107) mmol/L Carbon Dioxide 19 L (22-30) mmol/L BUN 26 H (9-20) mg/dL Creatinine 1.86 H (0.66-1.25) mg/dL Glucose 209 H (74-99) mg/dL Calcium 9.0 (8.4-10.2) mg/dL AST 19 (17-59) U/L ALT 19 (4-49) U/L Alkaline Phosphatase 108 (38-126) U/L Total Protein 6.4 (6.3-8.2) g/dL Albumin 3.1 L (3.5-5.0) g/dL Calcium panel 01/05/24 Range/Units 15:08 Calcium 9.0 (8.4-10.2) mg/dL Phosphorus 3.2 (2.5-4.5) mg/dL Albumin 3.1 L (3.5-5.0) g/dL Pituitary panel 01/05/24 Range/Units 15:08 Sodium 131 L (137-145) mmol/L Potassium 4.4 (3.5-5.1) mmol/L Chloride 102 (98-107) mmol/L Carbon Dioxide 19 L (22-30) mmol/L BUN 26 H (9-20) mg/dL Creatinine 1.86 H (0.66-1.25) mg/dL Glucose 209 H (74-99) mg/dL Calcium 9.0 (8.4-10.2) mg/dL Adrenal panel 01/05/24 Range/Units 15:08 Sodium 131 L (137-145) mmol/L Potassium 4.4 (3.5-5.1) mmol/L Chloride 102 (98-107) mmol/L Carbon Dioxide 19 L (22-30) mmol/L BUN 26 H (9-20) mg/dL Creatinine 1.86 H (0.66-1.25) mg/dL Glucose 209 H (74-99) mg/dL Calcium 9.0 (8.4-10.2) mg/dL Total Bilirubin 0.6 (0.2-1.3) mg/dL AST 19 (17-59) U/L ALT 19 (4-49) U/L Alkaline Phosphatase 108 (38-126) U/L Total Protein 6.4 (6.3-8.2) g/dL Albumin 3.1 L (3.5-5.0) g/dL Assessment and Plan (1) UTI (urinary tract infection) Current Visit: Yes Status: Acute Code(s): N39.0 - URINARY TRACT INFECTION, SITE NOT SPECIFIED SNOMED Code(s): 38539636 (2) Malignant neoplasm of bladder, unspecified Current Visit: No Status: Acute Code(s): C67.9 - MALIGNANT NEOPLASM OF BLADDER, UNSPECIFIED SNOMED Code(s): 822797002 Plan: The patient was admitted for low-grade fever and chills. Urinalysis shows evidence of pyuria. Urine culture 1 month ago showed Enterococcus. The patient had been advised by Dr. Mohr to be referred to a Medical Center for further evaluation of his voiding dysfunction, but the patient states that he does not have the means for transportation. He is long overdue for surveillance cystoscopy to rule out recurrent bladder cancer. I explained to him that the Aceves catheter is the cause of his recurrent UTIs, and that the catheter is not in place for urinary retention. Removal of the catheter would likely result in resolution of his UTIs, though his voiding dysfunction would be expected to recur. In the meantime, I would continue ceftriaxone, as preliminary urine culture shows gram-negative bacilli.
[2024-01-06 16:48] LABS: Glucose,Whole Blood 398 mg/dL (70-110)
[2024-01-06 19:30] LABS: Glucose,Whole Blood 121 mg/dL (70-110)
--- NOTE | 2024-01-06 20:48 | P.PN ---
Subjective Progress Note Date: 01/06/24 HISTORY OF PRESENT ILLNESS: 88-year-old male 1 by the patient who was seen in [facility] for the last few months was hospitalized last in December 11 for sepsis and UTI along with dys pnea and shortness of breath really was in the emergency room at that time for severe shortness of breath found to have an sepsis with UTI was Treated and kept in the hospital for few days seen urology patient is known to have bladder cancer was doing cystoscopy on long-term over a year when he developed to have severe incontinence require catheterization which patient continue to have i ndwelling catheter since. Patient was stabilized this past time and found with his culture to have Enterococcus facialis susceptible to many antibiotic which patient was on Rocephin initially and sent home on Cipro which completed 10 days. For the last 48 hours developed have slight fever chills with worsening lower abdominal pain along with slight confusion ended up being sent to the emergency department at [facility] where he was seen and evaluated temperature was normal white blood cell was elevated at 15,100 his UA was positive chemistry shows creatinine of 1.86 with GFR 52 which is slightly bit higher than last time. Culture was performed patient was started on 1 g of Rocephin and admitted to the hospital shortly after the above problem. 01/06/2024: The patient was hospitalized last night with sepsis and UTI with recurrent gram-negative urinary tract infection specially with indwelling catheter, knowing that patient had mild right-sided hydronephrosis along with moderate to severe left-sided hydronephrosis he has survival of bladder cancer with continue having urinary retention was supposed to initiate the plan to go see Dr. Cunningham for possible cystoscopy which patient has not done so far since he left the hospital last time. This culture again continue to show E nterococcus which require gram-negative coverage last time was switched to Cipro after initiate second-generation cephalosporin without success. Waiting to see urology at this time and see further decision patient has been debilitated and more weak will require probably further physical therapy and Occupational Therapy and is soon as we are done with management for his sepsis and UTI and patient can be switched to oral antibiotic he can return to SNF with extra help. REVIEW OF SYSTEMS: CONSTITUTIONAL: Well-developed no acute respiratory distress. EYES: No icterus sclerae, no conjunctivitis. EARS, NOSE, MOUTH, THROAT, and FACE: No sore throat, lymphadenopathy, carotid bruits or deformity. RESPIRATORY: Slight complaint of shortness of breath no cough or wheezes. CARDIOVASCULAR: Positive PND orthopnea palpitation no angina. GASTROINTESTINAL: No Abd pain, Nausea or vomiting, no Diarrhea or constipation, No GI Bleed, no distention or masses. GENITOURINARY: Recurrent UTI and urosepsis. Indwelling catheter.. INTEGUMENT/BREAST: Negative for any muscular injury with mild osteoarthritis.. HEMATOLOGIC/LYMPHATIC: Negative for bleed or purpura. MUSCULOSKELTAL: Generalized arthralgia and myalgia. NEURLOGICAL: No LOC, Sz or syncope, blurred vision dizziness or abnormality. Slight confusion.. BEHAVIORAL/PSYCH: Negative. ENDOCRINE: Negative. PHYSICAL EXAMINATION: General Appearance: Alert, cooperative, no distress, appears stated age. Slight confusion. Neck HEENT: Supple, no lymphadenopathy, no thyroid enlargement, no carotid bruits. Lungs: Decreased expansion with inspiration positive rhonchi with slight wheezes no crackles. Chest Wall: Decreased expansion with deep inspiration no tenderness and no deformity was found on exam, no costochondral pain or discomfort. Heart: Regular rate and rhythm, S1, S2 normal, no murmur, rub or gallop. Back: Symmetric, no curvature, ROM normal, no CVA tenderness. Slight scoliosis. Abdomen: Soft, non-tender, bowel sounds active all four quadrants, positive lower abdominal discomfort no masses or organomegaly scar tissue on the lower abdominal region area. Extremities: Extremities trace edema with slight discoloration with decreased pulse bilaterally. Genitourinary: Indwelling catheter with a urine draining slightly red cloudy. Pulses: Decreased bilaterally. Skin: Skin color, texture, tugor normal, no rashes or lesions. Neurologic: Alert oriented x3 cranial nerves II through XII intact, no motor deficit, positive abnormal gait. ASSESSMENT AND PLAN: _Sepsis and UTI: Patient was admitted symptoms are slightly better like the last time but with his underlying malignancy in the bladder aggressive treatment need to be continue the patient is currently on ceftriaxone till the final culture is back. _Recurrent urinary tract infection: Will continue antibiotic along with finasteride and tamsulosin. _ Moderate to severe hydronephrosis bilaterally both right and left with his history of bladder cancer make the the possibility of something existent bladder is quite bit high patient will require to have the cystoscopy sooner more than later. _Bladder cancer: Patient will require to go for cystoscopy was supposed to finish his antibiotic making arrangement to go for follow-up as an outpatient and scheduled at that point. Patient return to the hospital a month later with the same thing. _Stage III chronic kidney disease with slight decline continue gentle hydration repeat chemistry in the next 24 hours. _Type 2 diabetes: Has been on oral hypoglycemic agent will continue Accu-Cheks sliding scale coverage. _Severe chronic peripheral arterial disease: Post abdominal aortic aneurysm repair with angioplasty of the lower extremity as well. _Atherosclerotic heart disease post [place] in the past continue to watch for any recurrent chest pain also continue to watch for any recurrent diastolic or systolic heart failure. Patient might benefit any diuretics as well. _Iron deficiency anemia: Continue iron supplement along with H2 kar CBC re done again in the morning. _ Mild memory loss with dementia: Remain on donepezil continue medication. _Hyperlipidemia: Remain on atorvastatin 10 mg daily. _BPH: With no sign of obstruction remain on Flomax and Proscar continue both medication watch patient urine for any residual every shift. CODE STATUS: Full code. Prognosis: Fair. Objective - Vital Signs Vital signs: Vital Signs Temp 96.7 F L 01/06/24 02:04 Pulse 80 01/06/24 06:58 Resp 17 01/06/24 06:58 BP 148/83 01/06/24 06:58 Pulse Ox 95 01/06/24 06:58 FiO2 Intake & Output 01/05/24 01/06/24 01/06/24 18:59 06:59 18:59 Intake Total 650 Output Total 1000 Balance -350 Weight 75.296 kg 75.296 kg Intake: Oral 650 Output: Urine 1000 Other: Voiding Method Indwelling Catheter # Bowel Movements 1 - Labs CBC & Chem 7: 01/05/24 15:08 01/05/24 15:08 Labs: Abnormal Lab Results - Last 24 Hours (Table) 01/05/24 01/05/24 01/05/24 Range/Units 15:08 15:08 15:08 WBC 13.1 H (3.8-10.6) k/uL RBC 4.10 L (4.30-5.90) m/uL Hgb 12.9 L (13.0-17.5) gm/dL Neutrophils # 10.4 H (1.3-7.7) k/uL Sodium 131 L (137-145) mmol/L Carbon Dioxide 19 L (22-30) mmol/L BUN 26 H (9-20) mg/dL Creatinine 1.86 H (0.66-1.25) mg/dL Glucose 209 H (74-99) mg/dL POC Glucose (mg/dL) (70-110) mg/dL Albumin 3.1 L (3.5-5.0) g/dL Urine Protein 1+ H (Negative) Urine Glucose (UA) 4+ H (Negative) Urine Blood Small H (Negative) Ur Leukocyte Esterase Large H (Negative) Urine RBC 6 H (0-5) /hpf Urine WBC 115 H (0-5) /hpf Urine WBC Clumps Many H (None) /hpf Urine Bacteria Rare H (None) /hpf Urine Mucus Rare H (None) /hpf 01/05/24 01/06/24 Range/Units 19:27 05:31 WBC (3.8-10.6) k/uL RBC (4.30-5.90) m/uL Hgb (13.0-17.5) gm/dL Neutrophils # (1.3-7.7) k/uL Sodium (137-145) mmol/L Carbon Dioxide (22-30) mmol/L BUN (9-20) mg/dL Creatinine (0.66-1.25) mg/dL Glucose (74-99) mg/dL POC Glucose (mg/dL) 169 H 146 H (70-110) mg/dL Albumin (3.5-5.0) g/dL Urine Protein (Negative) Urine Glucose (UA) (Negative) Urine Blood (Negative) Ur Leukocyte Esterase (Negative) Urine RBC (0-5) /hpf Urine WBC (0-5) /hpf Urine WBC Clumps (None) /hpf Urine Bacteria (None) /hpf Urine Mucus (None) /hpf
[2024-01-07 05:46] LABS: Glucose,Whole Blood 65 mg/dL (70-110)
[2024-01-07 06:31] LABS: Glucose,Whole Blood 100 mg/dL (70-110)
[2024-01-07 07:49] LABS: HCT 35.7 % (39.0-53.0); HGB 11.6 gm/dL (13.0-17.5); MCH 32.1 pg (25.0-35.0); MCHC 32.4 g/dL (31.0-37.0); MCV 98.8 fL (80.0-100.0); Mean Platelet Volume 8.2; Platelet Count 260 k/uL (150-450); RBC 3.61 m/uL (4.30-5.90); RDW 12.5 % (11.5-15.5); WBC 12.2 k/uL (3.8-10.6)
[2024-01-07 08:13] LABS: ALT 17 U/L (4-49); AST 25 U/L (17-59); African American GFR (CKD) 33 (>60 ml/min/1.73 sqM); Albumin 2.5 g/dL (3.5-5.0); Albumin/Globulin Ratio 0.8; Alkaline Phosphatase 86 U/L (38-126); Anion Gap 5 mmol/L; Blood Urea Nitrogen 27 mg/dL (9-20); Calcium 8.4 mg/dL (8.4-10.2); Carbon Dioxide 22 mmol/L (22-30); Chloride 106 mmol/L (98-107); Globulin 3.1 g/dL; Glucose 108 mg/dL (74-99); Non-African American GFR(CKD) 29 (>60 ml/min/1.73 sqM); Potassium 3.9 mmol/L (3.5-5.1); Sodium 133 mmol/L (137-145); Total Bilirubin 0.3 mg/dL (0.2-1.3); Total Protein 5.6 g/dL (6.3-8.2)
[2024-01-07] MEDS: ENOXAPARIN 30 MG/0.3 ML SYRINGE SQ SCH (08:39)
[2024-01-07] MEDS: FAMOTIDINE 20 MG TAB PO SCH (08:50)
[2024-01-07 11:45] LABS: Glucose,Whole Blood 139 mg/dL (70-110)
--- NOTE | 2024-01-07 14:02 | P.PN ---
Subjective Progress Note Date: 01/07/24 88-year-old male patient who was seen in [facility] for the last few months was hospitalized last in December 11 for sepsis and UTI along with dyspnea and shortness of breath really was in the emergency room at that time for severe shortness of breath found to have an sepsis with UTI was Treated and kept in the hospital for few days seen urology patient is known to have bladder cancer was doing cystoscopy on long-term over a year when he developed to have severe incontinence require catheterization which patient continue to have indwelling catheter since. Patient was stabilized this past time and found with his culture to have Enterococcus facialis susceptible to many antibiotic which patient was on Rocephin initially and sent home on Cipro which completed 10 days. For the last 48 hours developed have slight fever chills with worsening lower abdominal pain along with slight confusion ended up being sent to the emergency department at [facility] where he was seen and evaluated temperature was normal white blood cell was elevated at 15,100 his UA was positive chemistry shows creatinine of 1.86 with GFR 52 which is slightly bit higher than last time. Culture was performed patient was started on 1 g of Rocephin and admitted to the hospital shortly after the above problem. --Patient has been evaluated by urology; UA is positive for WBCs and bacteria; given positive urine culture about a month ago which showed Enterococcus, urology is recommending to continue with current IV antibiotics; preliminary urine culture is growing gram-negative bacilli; patient is currently on IV ceftriaxone which is recommended to be continued till final culture and sensitivities available Objective - Vital Signs Vital signs: Vital Signs Temp 97.9 F 01/07/24 06:53 Pulse 80 01/07/24 06:53 Resp 17 01/07/24 06:53 BP 104/68 01/07/24 06:53 Pulse Ox 96 01/07/24 06:53 FiO2 Intake & Output 01/06/24 01/07/24 01/07/24 18:59 06:59 18:59 Intake Total 750 Output Total 700 Balance -700 750 Intake: Oral 750 Output: Urine 700 Other: Voiding Method Indwelling Catheter Indwelling Catheter Indwelling Catheter # Voids 3 # Bowel Movements 1 - Exam General Appearance: Alert, cooperative, no distress, appears stated age. Slight confusion. Neck HEENT: Supple, no lymphadenopathy, no thyroid enlargement, no carotid bruits. Lungs: Decreased expansion with inspiration positive rhonchi with slight wheezes no crackles. Chest Wall: Decreased expansion with deep inspiration no tenderness and no deformity was found on exam, no costochondral pain or discomfort. Heart: Regular rate and rhythm, S1, S2 normal, no murmur, rub or gallop. Back: Symmetric, no curvature, ROM normal, no CVA tenderness. Slight scoliosis. Abdomen: Soft, non-tender, bowel sounds active all four quadrants, positive lower abdominal discomfort no masses or organomegaly scar tissue on the lower abdominal region area. Extremities: Extremities trace edema with slight discoloration with decreased pulse bilaterally. Neurologic: Alert oriented x3 cranial nerves II through XII intact, no motor deficit, positive abnormal gait. - Labs CBC & Chem 7: 01/07/24 06:48 01/07/24 06:48 Labs: Abnormal Lab Results - Last 24 Hours (Table) 01/06/24 01/06/24 01/06/24 Range/Units 11:44 16:45 19:26 WBC (3.8-10.6) k/uL RBC (4.30-5.90) m/uL Hgb (13.0-17.5) gm/dL Hct (39.0-53.0) % Sodium (137-145) mmol/L BUN (9-20) mg/dL Creatinine (0.66-1.25) mg/dL Glucose (74-99) mg/dL POC Glucose (mg/dL) 210 H 398 H 121 H (70-110) mg/dL Total Protein (6.3-8.2) g/dL Albumin (3.5-5.0) g/dL 01/07/24 01/07/24 01/07/24 Range/Units 05:44 06:48 06:48 WBC 12.2 H (3.8-10.6) k/uL RBC 3.61 L (4.30-5.90) m/uL Hgb 11.6 L (13.0-17.5) gm/dL Hct 35.7 L (39.0-53.0) % Sodium 133 L (137-145) mmol/L BUN 27 H (9-20) mg/dL Creatinine 2.04 H (0.66-1.25) mg/dL Glucose 108 H (74-99) mg/dL POC Glucose (mg/dL) 65 L (70-110) mg/dL Total Protein 5.6 L (6.3-8.2) g/dL Albumin 2.5 L (3.5-5.0) g/dL Microbiology - Last 24 Hours (Table) 01/05/24 15:00 Blood Culture - Preliminary Blood 01/05/24 14:45 Blood Culture - Preliminary Blood Assessment and Plan Assessment: 1. UTI/sepsis: Patient is currently on IV ceftriaxone; urine cultures positive for gram-negative bacilli; plan to continue till final culture and sensitivities available -- Patient does have history of recurrent urinary tract infection: Will continue antibiotic along with finasteride and tamsulosin. 2. Moderate to severe hydronephrosis bilaterally both right and left with his history of bladder cancer; patient has been evaluated by urology; currently overdue for surveillance cystoscopy to rule out recurrent bladder cancer; patient is recommended outpatient follow-up 3. Bladder cancer: Patient will require to go for cystoscopy was supposed to finish his antibiotic making arrangement to go for follow-up as an outpatient and scheduled at that point. Patient return to the hospital a month later with the same thing. 4. Stage III chronic kidney disease; continue with IV fluid hydration; monitor renal function electrolytes; monitor strict FRAN's and daily weights; avoid nephrotoxins and hypotension 5. Type 2 diabetes: Has been on oral hypoglycemic agent will continue Accu- Cheks sliding scale coverage. 6. Atherosclerotic heart disease post [place] in the past continue to watch for any recurrent chest pain also continue to watch for any recurrent diastolic or systolic heart failure. Patient might benefit any diuretics as well. 7. Iron deficiency anemia: Continue iron supplement along with H2 kar CBC redone again in the morning. 8. Mild dementia: Remain on donepezil continue medication. 9. Hyperlipidemia: Remain on atorvastatin 10 mg daily. 10. BPH: Remains on Flomax and Proscar.
[2024-01-07 16:46] LABS: Glucose,Whole Blood 126 mg/dL (70-110)
[2024-01-07 20:09] LABS: Glucose,Whole Blood 200 mg/dL (70-110)
[2024-01-08 05:36] LABS: Glucose,Whole Blood 82 mg/dL (70-110)
[2024-01-08 11:51] LABS: Glucose,Whole Blood 162 mg/dL (70-110)
--- NOTE | 2024-01-08 12:52 | P.PN ---
Subjective Progress Note Date: 01/08/24 Principal diagnosis: Recurrent UTI Mr. Butler states that he is feeling better each day. Objective - Vital Signs Vital signs: Vital Signs Temp 97.9 F 01/08/24 07:14 Pulse 87 01/08/24 07:14 Resp 17 01/08/24 07:14 BP 156/92 01/08/24 07:14 Pulse Ox 98 01/08/24 07:14 FiO2 Intake & Output 01/07/24 01/08/24 01/08/24 18:59 06:59 18:59 Intake Total 480 Output Total 1100 700 Balance -1100 -220 Intake: Oral 480 Output: Urine 1100 700 Other: Voiding Method Indwelling Catheter Indwelling Catheter # Bowel Movements 0 - Constitutional General appearance: Present: average body habitus, no acute distress - Genitourinary Genitourinary Comment(s): The Aceves catheter is draining cloudy urine. - Psychiatric Psychiatric: Present: A&O x's 3 - Labs CBC & Chem 7: 01/07/24 06:48 01/07/24 06:48 Labs: Abnormal Lab Results - Last 24 Hours (Table) 01/07/24 01/07/24 01/07/24 Range/Units 11:44 16:41 20:08 POC Glucose (mg/dL) 139 H 126 H 200 H (70-110) mg/dL Microbiology - Last 24 Hours (Table) 01/05/24 15:00 Blood Culture - Preliminary Blood 01/05/24 14:45 Blood Culture - Preliminary Blood Assessment and Plan Assessment: Urine culture shows ESBL E. coli, resistant to Ceftriaxone. (1) UTI (urinary tract infection) Current Visit: Yes Status: Acute Code(s): N39.0 - URINARY TRACT INFECTION, SITE NOT SPECIFIED SNOMED Code(s): 74135690 (2) Malignant neoplasm of bladder, unspecified Current Visit: No Status: Acute Code(s): C67.9 - MALIGNANT NEOPLASM OF BLADDER, UNSPECIFIED SNOMED Code(s): 631604087 Plan: The patient was admitted for low-grade fever and chills. Urine culture 1 month ago showed Enterococcus. Current urine culture shows ESBL E. coi, resistant to Ceftriaxone (which he is currently receiving). The fact that his symptoms have improved while receiving an antibiotic to which the E. coli is resistant would suggest that his symptoms are unrelated to the bacterial colonization. The patient had been advised by Dr. Mohr to be referred to a Medical Center for further evaluation of his voiding dysfunction, but the patient states that he does not have the means for transportation. I explained to him that the Aceves catheter is the cause of his recurrent UTIs, and that the catheter is not in place for urinary retention. Removal of the catheter would likely result in resolution of his UTIs, though his incontinence/voiding dysfunction would be e xpected to recur. After weighing the pros and cons of an indwelling catheter, he has elected to undergo removal of the catheter. This will be done today, and bladder scan will be used to assess bladder emptying. He will likely be transferred back to [facility] tomorrow, and will require antibiotics to treat the E. coli UTI. If the catheter is ultimately replaced, there would be no rationale for him to continue to receive receive tamsulosin and finasteride. He is long overdue for surveillance cystoscopy to rule out recurrent bladder cancer, and arrangements will be made for him to follow-up with Dr. Mohr.
--- NOTE | 2024-01-08 15:44 | P.PN ---
Subjective Progress Note Date: 01/08/24 88-year-old male patient who was seen in [facility] for the last few months was hospitalized last in December 11 for sepsis and UTI along with dyspnea and shortness of breath really was in the emergency room at that time for severe shortness of breath found to have an sepsis with UTI was Treated and kept in the hospital for few days seen urology patient is known to have bladder cancer was doing cystoscopy on long-term over a year when he developed to have severe incontinence require catheterization which patient continue to have indwelling catheter since. Patient was stabilized this past time and found with his culture to have Enterococcus facialis susceptible to many antibiotic which patient was on Rocephin initially and sent home on Cipro which completed 10 days. For the last 48 hours developed have slight fever chills with worsening lower abdominal pain along with slight confusion ended up being sent to the emergency department at [facility] where he was seen and evaluated temperature was normal white blood cell was elevated at 15,100 his UA was positive chemistry shows creatinine of 1.86 with GFR 52 which is slightly bit higher than last time. Culture was performed patient was started on 1 g of Rocephin and admitted to the hospital shortly after the above problem. --Patient has been evaluated by urology; UA is positive for WBCs and bacteria; given positive urine culture about a month ago which showed Enterococcus, urology is recommending to continue with current IV antibiotics; preliminary urine culture is growing gram-negative bacilli; patient is currently on IV ceftriaxone which is recommended to be continued till final culture and sensitivities available 01/08/2024 Patient is seen and evaluated in room at bedside; urology present in the room; recommending to discontinue Aceves catheter with possible discharge in next 24 hours Vital signs are reviewed and remained stable Patient has had detailed discussion with urology regarding chronic use of Aceves catheter causing recurrent UTIs; patient wants catheter in place for urinary retention; agreeable to get the catheter removed with plans to continue with bladder scan to assess bladder emptying; patient can be discharged back to [facility] tomorrow with oral antibiotics to complete treatment for E. coli UTI --Urology will make arrangements for patient's follow-up for surveillance cystoscopy to rule out recurrent bladder cancer Objective - Vital Signs Vital signs: Vital Signs Temp 97.9 F 01/08/24 07:14 Pulse 87 01/08/24 07:14 Resp 17 01/08/24 07:14 BP 156/92 01/08/24 07:14 Pulse Ox 98 01/08/24 07:14 FiO2 Intake & Output 01/07/24 01/08/24 01/08/24 18:59 06:59 18:59 Intake Total 480 Output Total 1100 700 Balance -1100 -220 Intake: Oral 480 Output: Urine 1100 700 Other: Voiding Method Indwelling Catheter Indwelling Catheter Indwelling Catheter # Bowel Movements 0 - Exam General Appearance: Alert, cooperative, no distress, appears stated age. Slight confusion. Neck HEENT: Supple, no lymphadenopathy, no thyroid enlargement, no carotid bruits. Lungs: Decreased expansion with inspiration positive rhonchi with slight wheezes no crackles. Chest Wall: Decreased expansion with deep inspiration no tenderness and no deformity was found on exam, no costochondral pain or discomfort. Heart: Regular rate and rhythm, S1, S2 normal, no murmur, rub or gallop. Back: Symmetric, no curvature, ROM normal, no CVA tenderness. Slight scoliosis. Abdomen: Soft, non-tender, bowel sounds active all four quadrants, positive lower abdominal discomfort no masses or organomegaly scar tissue on the lower abdominal region area. Extremities: Extremities trace edema with slight discoloration with decreased pulse bilaterally. Neurologic: Alert oriented x3 cranial nerves II through XII intact, no motor deficit, positive abnormal gait. - Labs CBC & Chem 7: 01/07/24 06:48 01/07/24 06:48 Labs: Abnormal Lab Results - Last 24 Hours (Table) 01/07/24 01/07/24 01/07/24 Range/Units 11:44 16:41 20:08 POC Glucose (mg/dL) 139 H 126 H 200 H (70-110) mg/dL Microbiology - Last 24 Hours (Table) 01/05/24 15:00 Blood Culture - Preliminary Blood 01/05/24 14:45 Blood Culture - Preliminary Blood Assessment and Plan Assessment: 1. UTI/sepsis: Patient is currently on IV ceftriaxone; urine cultures positive for gram-negative bacilli; plan to continue till final culture and sensitivities available -- Patient does have history of recurrent urinary tract infection: Will continue antibiotic along with finasteride and tamsulosin. 2. Moderate to severe hydronephrosis bilaterally both right and left with his history of bladder cancer; patient has been evaluated by urology; currently overdue for surveillance cystoscopy to rule out recurrent bladder cancer; abdullahi winkler is recommended outpatient follow-up 3. Bladder cancer: Patient will require to go for cystoscopy was supposed to finish his antibiotic making arrangement to go for follow-up as an outpatient and scheduled at that point. Patient return to the hospital a month later with the same thing. 4. Stage III chronic kidney disease; continue with IV fluid hydration; monitor renal function electrolytes; monitor strict FRAN's and daily weights; avoid nephrotoxins and hypotension 5. Type 2 diabetes: Has been on oral hypoglycemic agent will continue Accu- Cheks sliding scale coverage. 6. Atherosclerotic heart disease post [place] in the past continue to watch for any recurrent chest pain also continue to watch for any recurrent diastolic or systolic heart failure. Patient might benefit any diuretics as well. 7. Iron deficiency anemia: Continue iron supplement along with H2 kar CBC redone again in the morning. 8. Mild dementia: Remain on donepezil continue medication. 9. Hyperlipidemia: Remain on atorvastatin 10 mg daily. 10. BPH: Remains on Flomax and Proscar.
[2024-01-08 16:33] LABS: Glucose,Whole Blood 207 mg/dL (70-110)
[2024-01-08 20:13] LABS: Glucose,Whole Blood 233 mg/dL (70-110)
[2024-01-09 05:56] LABS: Glucose,Whole Blood 89 mg/dL (70-110)
[2024-01-09 07:41] VITALS: BP 157/84; PULSE 76; RESP 16; TEMP 98.1
--- NOTE | 2024-01-09 07:58 | P.DS ---
Providers Date of admission: 01/06/24 14:54 Attending physician: Chinedu Gan Consults: 01/05/24 18:04 Consult Physician Routine Consulting Provider: Bridger Mohr Consult Reason/Comments: recurrent UTI's Do you want consulting provider notified?: Yes Primary care physician: Chinedu Gan [facility] Course: HISTORY OF PRESENT ILLNESS: 88-year-old male 1 by the patient who was seen in [facility] for the last few months was hospitalized last in December 11 for sepsis and UTI along with dyspnea and shortness of breath really was in the emergency room at that time for severe shortness of breath found to have an sepsis with UTI was Treated and kept in the hospital for few days seen urology patient is known to have bladder cancer was doing cystoscopy on long-term over a year when he developed to have severe incontinence require catheterization which patient continue to have indwelling catheter since. Patient was stabilized this past time and found with his culture to have Enterococcus facialis susceptible to many antibiotic which patient was on Rocephin initially and sent home on Cipro which completed 10 days. For the last 48 hours developed have slight fever chills with worsening lower abdominal pain along with slight confusion ended up being sent to the emergency department at [facility] where he was seen and evaluated temperature was normal white blood cell was elevated at 15,100 his UA was positive chemistry shows creatinine of 1.86 with GFR 52 which is slightly bit higher than last time. Culture was performed patient was started on 1 g of Rocephin and admitted to the hospital shortly after the above problem. 01/06/2024: The patient was hospitalized last night with sepsis and UTI with recurrent gram-negative urinary tract infection specially with indwelling catheter, knowing that patient had mild right-sided hydronephrosis along with moderate to severe left-sided hydronephrosis he has survival of bladder cancer with continue having urinary retention was supposed to initiate the plan to go see Dr. Cunningham for possible cystoscopy which patient has not done so far since he left the hospital last time. This culture again continue to show Enterococcus which require gram-negative coverage last time was switched to Cipro after initiate second-generation cephalosporin without success. Waiting to see urology at this time and see further decision patient has been debilitated and more weak will require probably further physical therapy and Occupational Therapy and is soon as we are done with management for his sepsis and UTI and patient can be switched to oral antibiotic he can return to SNF with extra help. REVIEW OF SYSTEMS: CONSTITUTIONAL: Well-developed no acute respiratory distress. EYES: No icterus sclerae, no conjunctivitis. EARS, NOSE, MOUTH, THROAT, and FACE: No sore throat, lymphadenopathy, carotid bruits or deformity. RESPIRATORY: Slight complaint of shortness of breath no cough or wheezes. CARDIOVASCULAR: Positive PND orthopnea palpitation no angina. GASTROINTESTINAL: No Abd pain, Nausea or vomiting, no Diarrhea or constipation, No GI Bleed, no distention or masses. GENITOURINARY: Recurrent UTI and urosepsis. Indwelling catheter.. INTEGUMENT/BREAST: Negative for any muscular injury with mild osteoarthritis.. HEMATOLOGIC/LYMPHATIC: Negative for bleed or purpura. MUSCULOSKELTAL: Generalized arthralgia and myalgia. NEURLOGICAL: No LOC, Sz or syncope, blurred vision dizziness or abnormality. Slight confusion.. BEHAVIORAL/PSYCH: Negative. ENDOCRINE: Negative. PHYSICAL EXAMINATION: General Appearance: Alert, cooperative, no distress, appears stated age. Slight confusion. Neck HEENT: Supple, no lymphadenopathy, no thyroid enlargement, no carotid b ruits. Lungs: Decreased expansion with inspiration positive rhonchi with slight wheezes no crackles. Chest Wall: Decreased expansion with deep inspiration no tenderness and no deformity was found on exam, no costochondral pain or discomfort. Heart: Regular rate and rhythm, S1, S2 normal, no murmur, rub or gallop. Back: Symmetric, no curvature, ROM normal, no CVA tenderness. Slight scoliosis. Abdomen: Soft, non-tender, bowel sounds active all four quadrants, positive lower abdominal discomfort no masses or organomegaly scar tissue on the lower abdominal region area. Extremities: Extremities trace edema with slight discoloration with decreased pulse bilaterally. Genitourinary: Indwelling catheter with a urine draining slightly red cloudy. Pulses: Decreased bilaterally. Skin: Skin color, texture, tugor normal, no rashes or lesions. Neurologic: Alert oriented x3 cranial nerves II through XII intact, no motor deficit, positive abnormal gait. ASSESSMENT AND PLAN: _Sepsis and UTI: Patient was admitted symptoms are slightly better like the last time but with his underlying malignancy in the bladder aggressive treatment need to be continue the patient is currently on ceftriaxone till the final culture is back. _Recurrent urinary tract infection: Will continue antibiotic along with finasteride and tamsulosin. _ Moderate to severe hydronephrosis bilaterally both right and left with his history of bladder cancer make the the possibility of something existent bladder is quite bit high patient will require to have the cystoscopy sooner more than later. _Bladder cancer: Patient will require to go for cystoscopy was supposed to finish his antibiotic making arrangement to go for follow-up as an outpatient and scheduled at that point. Patient return to the hospital a month later with the same thing. _Stage III chronic kidney disease with slight decline continue gentle hydration repeat chemistry in the next 24 hours. _Type 2 diabetes: Has been on oral hypoglycemic agent will continue Accu-Cheks sliding scale coverage. _Severe chronic peripheral arterial disease: Post abdominal aortic aneurysm repair with angioplasty of the lower extremity as well. _Atherosclerotic heart disease post SD in the past continue to watch for any recurrent chest pain also continue to watch for any recurrent diastolic or systolic heart failure. Patient might benefit any diuretics as well. _Iron deficiency anemia: Continue iron supplement along with H2 kar CBC redone again in the morning. _ Mild memory loss with dementia: Remain on donepezil continue medication. _Hyperlipidemia: Remain on atorvastatin 10 mg daily. _BPH: With no sign of obstruction remain on Flomax and Proscar continue both medication watch patient urine for any residual every shift. CODE STATUS: Full code. Hospital course: Patient was admitted to the hospital, his urine culture was positive for gram- negative bacilli is identical to what he had last hospitalization. Patient has indwelling catheter which making possibility of getting rid of the infection very hard. He is seen urology in house and he is overdue for cystoscopy with Dr. Mohr for follow-up on his bladder cancer. Agreed to remove the catheter and check on his residual and seen the patient has done very well. Patient be discharged back to [facility] today he has an appointment with Dr. Mohr on December 18 for follow-up in the office and cystoscopy. Patient will be on oral Cipro for total of 2 weeks till he sees Dr. Mohr and after his scope if needed to continue medication we will if not stop after 2 weeks. Patient is very stable to be discharged today. Time spent on discharge was over 35 minutes. Plan - Discharge Summary New Discharge Prescriptions: New Ciprofloxacin HCl [Cipro] 250 mg PO BID #30 tab Continue Cyanocobalamin (Vitamin B-12) [Vitamin B-12] 1,000 mcg PO DAILY@0800 Finasteride [Proscar] 5 mg PO DAILY@0800 Tamsulosin HCl [Flomax] 0.4 mg PO BID@0800,2100 Cholecalciferol [Vitamin D3 (25 Mcg = 1000 Iu)] 25 mcg PO DAILY@0800 Triamcinolone 0.1% Cream [Kenalog 0.1% Cream] 1 applicatio TOPICAL BID@0800,2100 L.acidoph,Paracasei, B.lactis [Probiotic] 1 cap PO BID@0800,1700 Magnesium Hydroxide [Milk of Magnesia Concentrate] 7,200 mg PO Q48H PRN PRN Reason: Constipation Dextran/Hypromellose/Glycerin [Genteal Tears 0.1%-0.2%-0.3%] 2 drop BOTH EYES BID@0800,2100 Na Phos,M-B/Na Phos,Di-Ba [Fleet Adult] 133 ml RECTAL DAILY PRN PRN Reason: Constipation Escitalopram [Lexapro] 10 mg PO DAILY@0800 bisacodyL [Dulcolax] 10 mg RECTAL DAILY PRN PRN Reason: Constipation Donepezil [Aricept] 10 mg PO HS@2100 Acetaminophen/Diphenhydramine [Tylenol PM 500-25mg] 2 tab PO HS@2130 Dapagliflozin Propanediol [Farxiga] 5 mg PO DAILY@0800 Acetaminophen [Tylenol Arthritis] 650 mg PO Q6H PRN PRN Reason: GENERAL DISCOMFORT Ondansetron [Zofran] 4 mg PO Q6H PRN PRN Reason: Nausea And Vomiting Ferrous Sulfate [Iron (65 MG Elemental)] 325 mg PO DAILY@0800 glipiZIDE [Glucotrol] 10 mg PO BID@0800,1700 Famotidine [Pepcid] 40 mg PO DAILY@0800 Atorvastatin [Lipitor] 10 mg PO HS@2100 INSULIN ASPART (NovoLOG) [NovoLOG (formulary)] See Protocol SQ ACHS@07,1630,2130 Glucerna Shake 120 ml PO DAILY@0800 Aspirin 81 mg PO DAILY@0800 Discontinued Ocusoft Lid Scrub Original External Pad (Eyelid Cleansers) 1 applic BOTH EYES HS Cefuroxime [Ceftin] 250 mg PO BID@0800,1999 Discharge Medication List Cyanocobalamin (Vitamin B-12) [Vitamin B-12] 1,000 mcg PO DAILY@0800 04/17/17 [History] Finasteride [Proscar] 5 mg PO DAILY@79912/01/18 [History] Tamsulosin HCl [Flomax] 0.4 mg PO BID@08,209911/18/21 [History] Cholecalciferol [Vitamin D3 (25 Mcg = 1000 Iu)] 25 mcg PO DAILY@0803/19/22 [History] Acetaminophen/Diphenhydramine [Tylenol PM 500-25mg] 2 tab PO HS@212912/11/23 [ History] Atorvastatin [Lipitor] 10 mg PO HS@209912/11/23 [History] Dextran/Hypromellose/Glycerin [Genteal Tears 0.1%-0.2%-0.3%] 2 drop BOTH EYES BID@08,209912/11/23 [History] Donepezil [Aricept] 10 mg PO HS@209912/11/23 [History] Escitalopram [Lexapro] 10 mg PO DAILY@79912/11/23 [History] Famotidine [Pepcid] 40 mg PO DAILY@79912/11/23 [History] Ferrous Sulfate [Iron (65 MG Elemental)] 325 mg PO DAILY@79912/11/23 [History] L.acidoph,Paracasei, B.lactis [Probiotic] 1 cap PO BID@0800,169912/11/23 [History] Magnesium Hydroxide [Milk of Magnesia Concentrate] 7,200 mg PO Q48H PRN 12/11/23 [History] Na Phos,M-B/Na Phos,Di-Ba [Fleet Adult] 133 ml RECTAL DAILY PRN 12/11/23 [History] Ondansetron [Zofran] 4 mg PO Q6H PRN 12/11/23 [History] Triamcinolone 0.1% Cream [Kenalog 0.1% Cream] 1 applicatio TOPICAL BID@0800,209912/11/23 [History] bisacodyL [Dulcolax] 10 mg RECTAL DAILY PRN 12/11/23 [History] glipiZIDE [Glucotrol] 10 mg PO BID@0800,1700 12/11/23 [History] Acetaminophen [Tylenol Arthritis] 650 mg PO Q6H PRN 01/05/24 [History] Aspirin 81 mg PO DAILY@0800 01/05/24 [History] Dapagliflozin Propanediol [Farxiga] 5 mg PO DAILY@0800 01/05/24 [History] Glucerna Shake 120 ml PO DAILY@0800 01/05/24 [History] INSULIN ASPART (NovoLOG) [NovoLOG (formulary)] See Protocol SQ ACHS@07,11,1630,2130 01/05/24 [History] Ciprofloxacin HCl [Cipro] 250 mg PO BID #30 tab 01/09/24 [Rx] Follow up Appointment(s)/Referral(s): Chinedu Gan MD [Primary Care Provider] - 1-2 days Rukhsana Ahn [NON-STAFF] - As Needed Bridger Mohr MD [STAFF PHYSICIAN] - 3 Weeks Activity/Diet/Wound Care/Special Instructions: Schedule follow-up appointment with Dr. Mohr in 3 to 4 weeks for office cystoscopy. Discharge Disposition: TRANSFER TO SNF/ECF
--- NOTE | 2024-01-09 08:53 | P.PN ---
Subjective Progress Note Date: 01/09/24 The patient is in the hospital with a urinary tract infection. He is known to our office but has not been seen in a couple of years. He was diagnosed with a high-grade noninvasive bladder cancer in 2019/cystoscopy is November 14. He did not follow-up after that. He also appeared to have a small capacity high- pressure bladder leading hydronephrosis. He was placed on anticholinergic and anti-muscular a medication without benefit. He was referred to [facility] for [facility] never The appointment. A catheters placed by another physician in which the patient does not remember. He has not seen another urologist since 2021. His history is somewhat sketchy however. The p atient denies hematuria. He feels better without the catheter. Objective - Vital Signs Vital signs: Vital Signs Temp 98.1 F 01/09/24 07:38 Pulse 76 01/09/24 07:38 Resp 16 01/09/24 07:38 BP 157/84 01/09/24 07:38 Pulse Ox 96 01/09/24 07:38 FiO2 Intake & Output 01/08/24 01/09/24 01/09/24 18:59 06:59 18:59 Intake Total 900 Output Total 300 Balance -300 900 Intake: Oral 900 Output: Urine 300 Uretheral (Aceves) 300 Other: Voiding Method Indwelling Catheter Diaper Incontinent # Voids 1 4 # Bowel Movements 1 - Labs CBC & Chem 7: 01/07/24 06:48 01/07/24 06:48 Labs: Abnormal Lab Results - Last 24 Hours (Table) 01/08/24 01/08/24 01/08/24 Range/Units 11:50 16:32 20:11 POC Glucose (mg/dL) 162 H 207 H 233 H (70-110) mg/dL Microbiology - Last 24 Hours (Table) 01/05/24 15:00 Blood Culture - Preliminary Blood 01/05/24 14:45 Blood Culture - Preliminary Blood Assessment and Plan Assessment: Impression: Recurrent urinary tract infection. Neurogenic bladder, hypertrophic. Chronic renal insufficiency with history of hydronephrosis. History of bladder cancer. Recommendations: Patient will need an outpatient follow-up in our office including cystoscopy. We will make arrangements for that.
[2024-01-09 11:22] LABS: Glucose,Whole Blood 213 mg/dL (70-110)
== END 2024-01-09 13:12 | DRG 698 ==
LOC: EC 14:04 → 4SSUR 17:26 → OBSVTOIN 01-06 14:54
PROVIDERS: ADMIT Internal Medicine Geriatric Medicine; ATTEND Internal Medicine Geriatric Medicine
DX: T83.511A Infection and inflammatory reaction due to indwelling urethral catheter, initial encounter (principal); A41.51 Sepsis due to Escherichia coli [E. coli]; E87.1 Hypo-osmolality and hyponatremia; F03.A4 Unspecified dementia, mild, with anxiety; F03.A3 Unspecified dementia, mild, with mood disturbance; N13.6 Pyonephrosis; Z16.12 Extended spectrum beta lactamase (ESBL) resistance; Z16.19 Resistance to other specified beta lactam antibiotics; E11.22 Type 2 diabetes mellitus with diabetic chronic kidney disease; E11.51 Type 2 diabetes mellitus with diabetic peripheral angiopathy without gangrene; N18.30 Chronic kidney disease, stage 3 unspecified; Z79.4 Long term (current) use of insulin; N31.8 Other neuromuscular dysfunction of bladder; I12.9 Hypertensive chronic kidney disease with stage 1 through stage 4 chronic kidney disease, or unspecified chronic kidney disease; D50.9 Iron deficiency anemia, unspecified; Z66 Do not resuscitate; I25.10 Atherosclerotic heart disease of native coronary artery without angina pectoris; E78.5 Hyperlipidemia, unspecified; N40.0 Benign prostatic hyperplasia without lower urinary tract symptoms; G47.33 Obstructive sleep apnea (adult) (pediatric); G89.29 Other chronic pain; Z95.828 Presence of other vascular implants and grafts; Z95.820 Peripheral vascular angioplasty status with implants and grafts; R53.81 Other malaise; B96.20 Unspecified Escherichia coli [E. coli] as the cause of diseases classified elsewhere; M54.50 Low back pain, unspecified; Y73.1 Therapeutic (nonsurgical) and rehabilitative gastroenterology and urology devices associated with adverse incidents; Z86.79 Personal history of other diseases of the circulatory system; Z87.440 Personal history of urinary (tract) infections; I25.2 Old myocardial infarction; Z86.73 Personal history of transient ischemic attack (TIA), and cerebral infarction without residual deficits; Z87.891 Personal history of nicotine dependence; Z79.84 Long term (current) use of oral hypoglycemic drugs; Z79.82 Long term (current) use of aspirin; Z85.51 Personal history of malignant neoplasm of bladder; Z79.899 Other long term (current) drug therapy; Z85.828 Personal history of other malignant neoplasm of skin
CPT/HCPCS: 36415; 71046; 80053; 81001; 83036; 83605; 83735; 84100; 85025; 85027; 87040; 96365; 96375; 99285

== ENCOUNTER 2024-11-23 08:08 | Inpatient (IN) | payer MEDICARE ==
--- NOTE | 2024-11-23 08:37 | ED ---
General Adult HPI - General Chief complaint: Urogenital Stated complaint: infection Time Seen by Provider: 11/23/24 08:13 Source: patient, EMS, RN notes reviewed Mode of arrival: EMS Limitations: altered mental status - History of Present Illness Initial comments: 89-year-old male presents to the emergency department for evaluation of decreased oral intake, overall not feeling well. Per EMS, patient is being treated for a urinary tract infection. Patient continues to have symptoms. He has a history of bladder cancer. - Related Data Home Medications Medication Instructions Recorded Confirmed Cyanocobalamin (Vitamin B-12) 1,000 mcg PO DAILY@0800 04/17/11/23/24 [Vitamin B-12] Finasteride [Proscar] 5 mg PO DAILY@79912/01/18 11/23/24 Tamsulosin HCl [Flomax] 0.4 mg PO BID@08,209911/18/21 11/23/24 Cholecalciferol [Vitamin D3 (25 25 mcg PO DAILY@79903/19/22 11/23/24 Mcg = 1000 Iu)] Acetaminophen/Diphenhydramine 2 tab PO HS@212912/11/23 11/23/24 [Tylenol PM 500-25mg] Atorvastatin [Lipitor] 10 mg PO HS@209912/11/23 11/23/24 Dextran/Hypromellose/Glycerin 2 drop BOTH EYES BID@0800,209912/11/23 11/23/24 [Genteal Tears 0.1%-0.2%-0.3%] Donepezil [Aricept] 10 mg PO HS@209912/11/23 11/23/24 Escitalopram [Lexapro] 10 mg PO DAILY@79912/11/23 11/23/24 Famotidine [Pepcid] 40 mg PO DAILY@79912/11/23 11/23/24 Ferrous Sulfate [Iron (65 MG 325 mg PO DAILY@79912/11/23 11/23/24 Elemental)] L.acidoph,Paracasei, B.lactis 1 cap PO BID@0800,1700 12/11/23 11/23/24 [Probiotic] Magnesium Hydroxide [Milk of 7,200 mg PO Q48H PRN 12/11/23 11/23/24 Magnesia Concentrate] Na Phos,M-B/Na Phos,Di-Ba [Fleet 133 ml RECTAL DAILY PRN 12/11/23 11/23/24 Adult] Ondansetron [Zofran] 4 mg PO Q6H PRN 12/11/23 11/23/24 bisacodyL [Dulcolax] 10 mg RECTAL DAILY PRN 12/11/23 11/23/24 glipiZIDE [Glucotrol] 10 mg PO BID@0800,1700 12/11/23 11/23/24 Aspirin 81 mg PO DAILY@0800 01/05/24 11/23/24 Dapagliflozin Propanediol [Farxiga] 5 mg PO DAILY@0800 01/05/24 11/23/24 Glucerna Shake 120 ml PO TID@0800,1200,1700 01/05/24 11/23/24 INSULIN ASPART (NovoLOG) [NovoLOG See Protocol SQ 01/05/24 11/23/24 (formulary)] ACHS@07,11,1630,2130 ALPRAZolam [Xanax] 0.25 mg PO BID 11/23/24 11/23/24 Acetaminophen Tab [Tylenol] 650 mg PO Q4H PRN 11/23/24 11/23/24 Doxycycline Hyclate 100 mg PO BID@0800,1700 11/23/24 11/23/24 HYDROcodone/APAP 5-325MG [[place] 1 tab PO Q4HR PRN 11/23/24 11/23/24 5-325] Sennosides [Senokot] 8.6 mg PO DAILY@0800 11/23/24 11/23/24 fluorouraciL [Efudex] 1 applic TOPICAL BID@0800,1700 11/23/24 11/23/24 Allergies Allergy/AdvReac Type Severity Reaction Status Date / Time No Known Allergies Allergy Verified 11/23/24 10:54 Review of Systems ROS Statement: Those systems with pertinent positive or pertinent negative responses have been documented in the HPI. ROS Other: All systems not noted in ROS Statement are negative. Past Medical History Past Medical History: Coronary Artery Disease (CAD), Cancer, CVA/TIA, Diabetes Mellitus, Hyperlipidemia, Hypertension, Myocardial Infarction ([place]), Prostate Disorder, Sleep Apnea/CPAP/BIPAP, Vascular Disorder Additional Past Medical History / Comment(s): TIA in 2015, MICHAEL without device, CKD stage III, chronic low back pain, migraines in past, vertigo, balance issues, falls, BPH, benign colon polyp, diverticular disease, vascular disease with surgery-AAA repair and R leg bypass, skin cancer with removal, superficial bladder cancer Last Myocardial Infarction Date:: 04/17/17 History of Any Multi-Drug Resistant Organisms: ESBL Date of last positivie culture/infection: 01/19/24 MDRO Source:: Urine Past Surgical History: Adenoidectomy, Heart Catheterization With Stent, Tonsillectomy Additional Past Surgical History / Comment(s): 12/07/18 endovascular repair/stent graft infra renal aorta, R leg bypass surgery after AAA repair at [facility], colonoscopy/polypectomy, basal cell cancer removed from forehead, bilateral cataract removals/lens implants, cystoscopy -biopsy for cancer Past Anesthesia/Blood Transfusion Reactions: Motion Sickness Additional Past Anesthesia/Blood Transfusion Reaction / Comment(s): . Date of Last Stent Placement:: 03/2017 Past Psychological History: Anxiety, Depression Smoking Status: Former smoker Past Alcohol Use History: None Reported Past Drug Use History: None Reported - Past Family History Brother(s) Family Medical History: No Reported History Sister(s) Family Medical History: No Reported History Son(s) Family Medical History: No Reported History Father Family Medical History: Diabetes Mellitus, Myocardial Infarction ([place]), Vascular Disorder Additional Family Medical History / Comment(s): Father of a AK at the age of 76 or 77yrs. He was an alcoholic. Mother Family Medical History: Deep Vein Thrombosis (DVT), Pulmonary Embolus Additional Family Medical History / Comment(s): Mother at 42 yrs of age of "blood clot" in the lung and it went to the heart. General Exam Limitations: altered mental status General appearance: alert, in no apparent distress Head exam: Present: atraumatic, normocephalic, normal inspection Eye exam: Present: normal appearance, PERRL, EOMI. Absent: scleral icterus, conjunctival injection, periorbital swelling ENT exam: Present: normal exam, mucous membranes moist Respiratory exam: Present: normal lung sounds bilaterally. Absent: respiratory distress, wheezes, rales, rhonchi, stridor Cardiovascular Exam: Present: regular rate, normal rhythm, normal heart sounds. Absent: systolic murmur, diastolic murmur, rubs, gallop, clicks GI/Abdominal exam: Present: soft, tenderness, normal bowel sounds. Absent: distended, guarding, rebound, rigid Extremities exam: Present: normal inspection, full ROM, normal capillary refill. Absent: tenderness, pedal edema, joint swelling, calf tenderness Back exam: Present: normal inspection Neurological exam: Present: alert Psychiatric exam: Present: normal affect, normal mood Skin exam: Present: warm, dry, intact, normal color. Absent: rash Course Vital Signs 11/23/24 11/23/24 11/23/24 08:13 08:34 09:34 Temperature 98.6 F Pulse Rate 73 69 Respiratory 17 17 20 Rate Blood Pressure 133/81 123/70 O2 Sat by Pulse 99 95 Oximetry 11/23/24 11/23/24 11/23/24 10:50 12:45 14:41 Temperature 98.6 F 98.1 F Pulse Rate 71 86 69 Respiratory 19 20 21 Rate Blood Pressure 124/68 146/86 156/87 O2 Sat by Pulse 94 L 97 96 Oximetry Medical Decision Making - Medical Decision Making Was pt. sent in by a medical professional or institution (, PA, TABLE AND DESK FINISHER, urgent care, hospital, or fci...) When possible be specific @ -No Did you speak to anyone other than the patient for history (EMS, parent, family, police, friend...)? What history was obtained from this source @ -No Did you review nursing and triage notes (agree or disagree)? Why? @ -I reviewed and agree with nursing and triage notes Were old charts reviewed (outside hosp., previous admission, EMS record, old EKG, old radiological studies, urgent care reports/EKG's, fci records)? Report findings @ -No old charts were reviewed Differential Diagnosis (chest pain, altered mental status, abdominal pain women, abdominal pain men, vaginal bleeding, weakness, fever, dyspnea, syncope, headache, dizziness, GI bleed, back pain, seizure, CVA, palpatations, mental health, musculoskeletal)? @ -Differential Altered Mental Status: Hypoglycemia, DKA, hypercapnia, ETOH, overdose, CO poisoning, trauma, myxedema coma, HTN encephalopathy, infection, encephalitis, psychosis, intercranial hemorrhage, hepatic encephalopathy, meningitis, CVA, this is not meant to be an all-inclusive list EKG interpreted by me (3pts min.). @ -EKG at X-rays interpreted by me (1pt min.). @ -Chest x-ray shows no acute process. CT interpreted by me (1pt min.). @ -None done U/S interpreted by me (1pt. min.). @ -None done What testing was considered but not performed or refused? (CT, X-rays, U/S, labs)? Why? @ -None What meds were considered but not given or refused? Why? @ -None Did you discuss the management of the patient with other professionals (professionals i.e. DrYvon, PA, TABLE AND DESK FINISHER, lab, RT, psych nurse, social media editor, psychologist private practice, teacher, licensed loan officer, patient case coordinator)? Give summary @ -Case discussed with Dr. Hung covering for Dr. Gan was accepting of the adm ission Was smoking cessation discussed for >3mins.? @ -No Was critical care preformed (if so, how long)? @ -No Were there social determinants of health that impacted care today? How? (Homelessness, low income, unemployed, alcoholism, drug addiction, transportation, low edu. Level, literacy, decrease access to med. care, penitentiary, rehab)? @ -No Was there de-escalation of care discussed even if they declined (Discuss DNR or withdrawal of care, Hospice)? DNR status @ -No What co-morbidities impacted this encounter? (DM, HTN, Smoking, COPD, CAD, Cancer, CVA, ARF, Chemo, Hep., AIDS, mental health diagnosis, sleep apnea, morbid obesity)? @ -None Was patient admitted / discharged? Hospital course, mention meds given and route, prescriptions, significant lab abnormalities, going to OR and other p ertinent info. @ -Admitted. Patient presented emergency department for evaluation of of dehydration, altered mental status. Laboratory studies obtained. Leukocytosis at 18.6, hemoglobin 11.6 which is baseline for the patient; normal coagulation studies; BUN 51, creatinine 2.49. UA shows 2+, large blood, large leukocyte esterase, greater than 182 WBCs, Pent was given 500 cc fluid bolus and started on Rocephin. Patient will be admitted to the hospital for failed outpatient antibiotics. Case discussed with [facility] was accepting of the admission. Case discussed with Dr. Ortega Undiagnosed new problem with uncertain prognosis? @ -No Drug Therapy requiring intensive monitoring for toxicity (Heparin, Nitro, Insulin, Cardizem)? @ -No Were any procedures done? @ -No Diagnosis/symptom? @ -UTI, altered mental status Acute, or Chronic, or Acute on Chronic? @ -Acute Uncomplicated (without systemic symptoms) or Complicated (systemic symptoms)? @ -complicated Side effects of treatment? @ -No Exacerbation, Progression, or Severe Exacerbation? @ -No Poses a threat to life or bodily function? How? (Chest pain, [place], AK, pneumonia, PE, COPD, DKA, ARF, appy, cholecystitis, CVA, Diverticulitis, Homicidal, Suicidal, threat to staff... and all critical care pts) @ -No - Lab Data Result diagrams: 11/23/24 08:41 11/23/24 08:41 Lab Results 11/23/24 11/23/24 11/23/24 Range/Units 08:41 08:41 08:41 WBC 18.6 H (3.8-10.6) k/uL RBC 3.80 L (4.30-5.90) m/uL Hgb 11.6 L (13.0-17.5) gm/dL Hct 37.7 L (39.0-53.0) % MCV 99.2 (80.0-100.0) fL MCH 30.6 (25.0-35.0) pg MCHC 30.8 L (31.0-37.0) g/dL RDW 13.3 (11.5-15.5) % Plt Count 376 (150-450) k/uL MPV 7.5 Neutrophils % 81 % Lymphocytes % 8 % Monocytes % 7 % Eosinophils % 1 % Basophils % 0 % Neutrophils # 15.1 H (1.3-7.7) k/uL Lymphocytes # 1.5 (1.0-4.8) k/uL Monocytes # 1.3 H (0-1.0) k/uL Eosinophils # 0.1 (0-0.7) k/uL Basophils # 0.0 (0-0.2) k/uL Hypochromasia Moderate PT 10.9 (10.0-12.5) sec INR 1.0 (<1.2) APTT 24.6 (22.0-30.0) sec Sodium 137 (137-145) mmol/L Potassium 4.2 (3.5-5.1) mmol/L Chloride 105 (98-107) mmol/L Carbon Dioxide 26 (22-30) mmol/L Anion Gap 6 mmol/L BUN 51 H (9-20) mg/dL Creatinine 2.49 H (0.66-1.25) mg/dL Est GFR (CKD-EPI)AfAm 26 (>60 ml/min/1.73 sqM) Est GFR (CKD-EPI)NonAf 22 (>60 ml/min/1.73 sqM) Glucose 143 H (74-99) mg/dL Plasma Lactic Acid [place] (0.7-2.0) mmol/L Calcium 9.1 (8.4-10.2) mg/dL Total Bilirubin 0.5 (0.2-1.3) mg/dL AST 24 (17-59) U/L ALT 35 (4-49) U/L Alkaline Phosphatase 129 H (38-126) U/L Total Protein 5.8 L (6.3-8.2) g/dL Albumin 2.6 L (3.5-5.0) g/dL Urine Color Urine Appearance (Clear) Urine pH (5.0-8.0) Ur Specific [place] (1.001-1.035) Urine Protein (Negative) Urine Glucose (UA) (Negative) Urine Ketones (Negative) Urine Blood (Negative) Urine Nitrite (Negative) Urine Bilirubin (Negative) Urine Urobilinogen (<2.0) mg/dL Ur Leukocyte Esterase (Negative) Urine RBC (0-5) /hpf Urine WBC (0-5) /hpf Urine WBC Clumps (None) /hpf Urine Bacteria (None) /hpf 11/23/24 11/23/24 Range/Units 08:41 10:49 WBC (3.8-10.6) k/uL RBC (4.30-5.90) m/uL Hgb (13.0-17.5) gm/dL Hct (39.0-53.0) % MCV (80.0-100.0) fL MCH (25.0-35.0) pg MCHC (31.0-37.0) g/dL RDW (11.5-15.5) % Plt Count (150-450) k/uL MPV Neutrophils % % Lymphocytes % % Monocytes % % Eosinophils % % Basophils % % Neutrophils # (1.3-7.7) k/uL Lymphocytes # (1.0-4.8) k/uL Monocytes # (0-1.0) k/uL Eosinophils # (0-0.7) k/uL Basophils # (0-0.2) k/uL Hypochromasia PT (10.0-12.5) sec INR (<1.2) APTT (22.0-30.0) sec Sodium (137-145) mmol/L Potassium (3.5-5.1) mmol/L Chloride (98-107) mmol/L Carbon Dioxide (22-30) mmol/L Anion Gap mmol/L BUN (9-20) mg/dL Creatinine (0.66-1.25) mg/dL Est GFR (CKD-EPI)AfAm (>60 ml/min/1.73 sqM) Est GFR (CKD-EPI)NonAf (>60 ml/min/1.73 sqM) Glucose (74-99) mg/dL Plasma Lactic Acid [place] 1.3 (0.7-2.0) mmol/L Calcium (8.4-10.2) mg/dL Total Bilirubin (0.2-1.3) mg/dL AST (17-59) U/L ALT (4-49) U/L Alkaline Phosphatase (38-126) U/L Total Protein (6.3-8.2) g/dL Albumin (3.5-5.0) g/dL Urine Color Light Red Urine Appearance Turbid (Clear) Urine pH 6.0 (5.0-8.0) Ur Specific [place] 1.015 (1.001-1.035) Urine Protein 2+ H (Negative) Urine Glucose (UA) 3+ H (Negative) Urine Ketones Negative (Negative) Urine Blood Large H (Negative) Urine Nitrite Negative (Negative) Urine Bilirubin Negative (Negative) Urine Urobilinogen <2.0 (<2.0) mg/dL Ur Leukocyte Esterase Large H (Negative) Urine RBC >182 H (0-5) /hpf Urine WBC >182 H (0-5) /hpf Urine WBC Clumps Many H (None) /hpf Urine Bacteria Few H (None) /hpf Disposition Clinical Impression: UTI (urinary tract infection), Failure of outpatient treatment Disposition: ADMITTED IP TO THIS HOSP Condition: Stable Is patient prescribed a controlled substance at d/c from ED?: No Referrals: Chinedu Gan MD [Primary Care Provider] - 1-2 days
[2024-11-23] MEDS: SODIUM CHLORIDE 0.9% 500 ML 500 ML IV STA (08:49)
[2024-11-23 08:56] LABS: Basophils % (A) 0 %; Eosinophils # (A) 0.1 k/uL (0-0.7); Eosinophils % (A) 1 %; HCT 37.7 % (39.0-53.0); HGB 11.6 gm/dL (13.0-17.5); Hypochromasia Moderate; Lymphocytes # (A) 1.5 k/uL (1.0-4.8); Lymphocytes % (A) 8 %; MCH 30.6 pg (25.0-35.0); MCHC 30.8 g/dL (31.0-37.0); MCV 99.2 fL (80.0-100.0); Mean Platelet Volume 7.5; Monocytes # (A) 1.3 k/uL (0-1.0); Monocytes % (A) 7 %; Neutrophils # (A) 15.1 k/uL (1.3-7.7); Neutrophils % (A) 81 %; Platelet Count 376 k/uL (150-450); RDW 13.3 % (11.5-15.5); WBC 18.6 k/uL (3.8-10.6)
[2024-11-23 09:03] LABS: Partial Thromboplastin Time 24.6 sec (22.0-30.0); Prothrombin Time 10.9 sec (10.0-12.5)
[2024-11-23 09:17] LABS: ALT 35 U/L (4-49); AST 24 U/L (17-59); African American GFR (CKD) 26 (>60 ml/min/1.73 sqM); Albumin 2.6 g/dL (3.5-5.0); Alkaline Phosphatase 129 U/L (38-126); Anion Gap 6 mmol/L; Blood Urea Nitrogen 51 mg/dL (9-20); Calcium 9.1 mg/dL (8.4-10.2); Carbon Dioxide 26 mmol/L (22-30); Chloride 105 mmol/L (98-107); Glucose 143 mg/dL (74-99); Non-African American GFR(CKD) 22 (>60 ml/min/1.73 sqM); Potassium 4.2 mmol/L (3.5-5.1); Sodium 137 mmol/L (137-145); Total Bilirubin 0.5 mg/dL (0.2-1.3); Total Protein 5.8 g/dL (6.3-8.2)
--- NOTE | 2024-11-23 09:23 | XR ---
EXAMINATION TYPE: XR chest 2V DATE OF EXAM: 11/23/2024 9:17 AM COMPARISON: 01/05/2024 CLINICAL INDICATION: Male, 89 years old with history of Weakness, , TECHNIQUE: AP and lateral views FINDINGS: Heart borderline in size. Aorta within normal limits. Mild interstitial prominence. No consolidation or pleural effusion. IMPRESSION: Borderline heart size. Mild interstitial prominence which may be technical. Otherwise, no definite ac [place] process. [facility], Workstation: [id number], 11/23/2024 9:20 AM
--- NOTE | 2024-11-23 09:24 | XR ---
EXAMINATION TYPE: XR KUB DATE OF EXAM: 11/23/2024 COMPARISON: NONE CLINICAL INDICATION: Male, 89 years old with history of abd pain; FINDINGS: An aortobiiliac endovascular stent graft noted. Nonobstructive bowel gas pattern. Scattered mild stoo l. No dilated small bowel. No suspicious calcifications are seen. IMPRESSION: Mild scattered stool. Nonobstructive bowel gas pattern. Aortobiiliac endovascular stent g raft. [facility], , 11/23/2024 9:21 AM
[2024-11-23 11:50] LABS: Appearance,Urine Turbid (Clear); Bacteria,Urine Few /hpf; Bilirubin,Urine Negative (Negative); Blood,Urine Large (Negative); Color,Urine Light Red; Glucose,Urine (UA) 3+ (Negative); Ketones,Urine Negative (Negative); Leukocyte Esterase,Urine Large (Negative); Nitrite,Urine Negative (Negative); Protein,Urine 2+ (Negative); RBC,Urine >182 /hpf (0-5); Urobilinogen,Urine <2.0 mg/dL (<2.0); WBC,Urine >182 /hpf (0-5)
[2024-11-23 11:52] LABS: Specific Gravity,Urine 1.015 (1.001-1.035)
[2024-11-23] MEDS ORDERED: NALOXONE 0.4 MG/ML 1 ML VIAL IV PRN (14:26)
[2024-11-23] MEDS ORDERED: ACETAMINOPHEN TAB 325 MG TAB PO PRN ×2 (14:26→17:50)
[2024-11-23] MEDS: SODIUM CHLORIDE 0.9% 1,000 ML IV SCH (14:45)
[2024-11-23] MEDS ORDERED: bisacodyL 10 MG SUPP RECTAL PRN (17:50)
[2024-11-23] MEDS ORDERED: ONDANSETRON 4 MG TAB PO PRN (17:50)
[2024-11-23] MEDS ORDERED: MAGNESIUM HYDROXIDE 2,400 MG/30 ML CUP PO PRN (17:50)
[2024-11-23] MEDS ORDERED: DEXTROSE 50% SYRINGE 50 ML IVP PRN ×2 (18:00)
[2024-11-23] MEDS: ATORVASTATIN 10 MG TAB PO SCH (19:59)
[2024-11-23] MEDS: TAMSULOSIN 0.4 MG CAP.ER.24H PO SCH (19:59)
[2024-11-23] MEDS: DONEPEZIL 10 MG TAB PO SCH (19:59)
[2024-11-23] MEDS: ARTIFICIAL TEARS-HYPROMELLOSE DROPS 15 ML BTL BOTH EYES SCH (19:59)
[2024-11-23 20:22] LABS: Glucose,Whole Blood 199 mg/dL (70-110)
[2024-11-24 05:27] LABS: Glucose,Whole Blood 153 mg/dL (70-110)
[2024-11-24] MEDS ORDERED: NON FORMULARY DRUG (Glucerna Shake 1 CAN Ml) PO SCH (08:00)
[2024-11-24] MEDS: SENNOSIDES 8.6 MG TAB PO SCH (08:45)
[2024-11-24] MEDS: DAPAGLIFLOZIN PROPANEDIOL 5 MG TABLET PO SCH (08:45)
[2024-11-24] MEDS: ESCITALOPRAM 10 MG TAB PO SCH (08:45)
[2024-11-24] MEDS: CYANOCOBALAMIN 500 MCG TAB PO SCH (08:45)
[2024-11-24] MEDS: FAMOTIDINE 20 MG TAB PO SCH (08:45)
[2024-11-24] MEDS: glipiZIDE 10 MG TAB PO SCH (08:45)
[2024-11-24] MEDS: ASPIRIN 81 MG PO SCH (08:45)
[2024-11-24] MEDS: CHOLECALCIFEROL 25 MCG (1000 IU) TABLET PO SCH (08:46)
[2024-11-24] MEDS: LACTOBACILLUS ACIDOPHILUS/PECT 1 EACH CAPSULE PO SCH (08:46)
[2024-11-24] MEDS: FERROUS SULFATE 325 MG TAB PO SCH (08:46)
--- NOTE | 2024-11-24 11:12 | P.HPIM ---
History of Present Illness 89-year-old male was sent in from [facility] for decreased p.o. intake and increased generalized weakness from his baseline. I cannot get any kind of history from the patient patient appears to have dementia mostly bedbound at the custodial. Apparently patient is being treated for UTI although his admission medication does not reflect that she is on any antibiotics at this time his urine is significantly abnormal patient does not have any Aceves catheter at this time does have a condom catheter at this time. Patient has significantly elevated urine WBC. Patient has elevated white count of 18,600 although does not have any fevers. Patient has elevated creatinine of 2.49 which appears to be his baseline. REVIEW OF SYSTEMS: All other systems are negative except those mentioned in the HPI PHYSICAL EXAMINATION: GENERAL: Patient is arousable unable to assess orientation HEENT: Pupils are round and equally reacting to light. EOMI. No scleral icterus. No conjunctival pallor. Normocephalic, atraumatic. No pharyngeal erythema. No thyromegaly. CARDIOVASCULAR: S1 and S2 present. No murmurs, rubs, or gallops. PULMONARY: Chest is clear to auscultation, no wheezing or crackles. ABDOMEN: Soft, nontender, nondistended, normoactive bowel sounds. No palpable organomegaly. MUSCULOSKELETAL: No joint swelling or deformity. EXTREMITIES: No cyanosis, clubbing, or pedal edema. NEUROLOGICAL: Gross neurological examination did not reveal any focal deficits. Significant generalized weakness bedbound SKIN: No rashes. Assessment and plan -Sepsis probably secondary to urinary tract infection patient was started on 1 week 1 g of Rocephin patient had a Klebsiella in the urine in the past which was pansensitive. -Coronary disease with stents in the past -Sleep apnea -Type 2 diabetes mellitus -Hyperlipidemia -Hypertension -Peripheral vascular disease -CVA TIA in the past -Generalized deconditioning poor functional status mostly bedbound supportive care For above-mentioned chronic medical problems patient was resumed on appropriate home medications additionally will add GI and DVT prophylaxis along with sliding scale insulin DVT prophylaxis: Heparin subcutaneous Past Medical History Past Medical History: Coronary Artery Disease (CAD), Cancer, CVA/TIA, Diabetes Mellitus, Hyperlipidemia, Hypertension, Myocardial Infarction ([place]), Prostate Disorder, Sleep Apnea/CPAP/BIPAP, Vascular Disorder Additional Past Medical History / Comment(s): TIA in 2015, MICHAEL without device, CKD stage III, chronic low back pain, migraines in past, vertigo, balance issues, falls, BPH, benign colon polyp, diverticular disease, vascular disease with surgery-AAA repair and R leg bypass, skin cancer with removal, superficial bladder cancer Last Myocardial Infarction Date:: 04/17/17 History of Any Multi-Drug Resistant Organisms: ESBL Date of last positivie culture/infection: 01/19/24 MDRO Source:: Urine Past Surgical History: Adenoidectomy, Heart Catheterization With Stent, Tonsillectomy Additional Past Surgical History / Comment(s): 12/07/18 endovascular repair/stent graft infra renal aorta, R leg bypass surgery after AAA repair at [facility], colonoscopy/polypectomy, basal cell cancer removed from forehead, bilateral cataract removals/lens implants, cystoscopy -biopsy for cancer Past Anesthesia/Blood Transfusion Reactions: Motion Sickness Additional Past Anesthesia/Blood Transfusion Reaction / Comment(s): . Date of Last Stent Placement:: 03/2017 Past Psychological History: Anxiety, Depression Additional Psychological History / Comment(s): . Smoking Status: Former smoker Past Alcohol Use History: None Reported Additional Past Alcohol Use History / Comment(s): Pt started smoking in 1957 and quit in 1986. smoked 1ppd Past Drug Use History: None Reported - Past Family History Brother(s) Family Medical History: No Reported History Sister(s) Family Medical History: No Reported History Son(s) Family Medical History: No Reported History Father Family Medical History: Diabetes Mellitus, Myocardial Infarction ([place]), Vascular Disorder Additional Family Medical History / Comment(s): Father of a [place] at the age of 76 or 77yrs. He was an alcoholic. Mother Family Medical History: Deep Vein Thrombosis (DVT), Pulmonary Embolus Additional Family Medical History / Comment(s): Mother at 42 yrs of age of "blood clot" in the lung and it went to the heart. Medications and Allergies Home Medications Medication Instructions Recorded Confirmed Type Cyanocobalamin (Vitamin B-12) 1,000 mcg PO DAILY@0800 04/17/17 11/23/24 History [Vitamin B-12] Finasteride [Proscar] 5 mg PO DAILY@0800 12/01/18 11/23/24 History Tamsulosin HCl [Flomax] 0.4 mg PO BID@0800,2100 11/18/2125 History Cholecalciferol [Vitamin D3 (25 25 mcg PO DAILY@0803/19/22 11/23/24 History Mcg = 1000 Iu)] Acetaminophen/Diphenhydramine 2 tab PO HS@212912/11/23 11/23/24 History [Tylenol PM 500-25mg] Atorvastatin [Lipitor] 10 mg PO HS@209912/11/23 11/23/24 History Dextran/Hypromellose/Glycerin 2 drop BOTH EYES BID@0800,209912/11/23 11/23/24 History [Genteal Tears 0.1%-0.2%-0.3%] Donepezil [Aricept] 10 mg PO HS@209912/11/23 11/23/24 History Escitalopram [Lexapro] 10 mg PO DAILY@0812/11/23 11/23/24 History Famotidine [Pepcid] 40 mg PO DAILY@0800 12/11/23 11/23/24 History Ferrous Sulfate [Iron (65 MG 325 mg PO DAILY@0812/11/23 11/23/24 History Elemental)] L.acidoph,Paracasei, B.lactis 1 cap PO BID@0800,1700 12/11/23 11/23/24 History [Probiotic] Magnesium Hydroxide [Milk of 7,200 mg PO Q48H PRN 12/11/23 11/23/24 History Magnesia Concentrate] Na Phos,M-B/Na Phos,Di-Ba [Fleet 133 ml RECTAL DAILY PRN 12/11/23 11/23/24 History Adult] Ondansetron [Zofran] 4 mg PO Q6H PRN 12/11/23 11/23/24 History bisacodyL [Dulcolax] 10 mg RECTAL DAILY PRN 12/11/23 11/23/24 History glipiZIDE [Glucotrol] 10 mg PO BID@0800,1700 12/11/23 11/23/24 History Aspirin 81 mg PO DAILY@0800 01/05/24 11/23/24 History Dapagliflozin Propanediol [Farxiga] 5 mg PO DAILY@0800 01/05/24 11/23/24 History Glucerna Shake 120 ml PO TID@0800,1200,1700 01/05/24 11/23/24 History INSULIN ASPART (NovoLOG) [NovoLOG See Protocol SQ 01/05/24 11/23/24 History (formulary)] ACHS@07,11,1630,2130 ALPRAZolam [Xanax] 0.25 mg PO BID 11/23/24 11/23/24 History Acetaminophen Tab [Tylenol] 650 mg PO Q4H PRN 11/23/24 11/23/24 History Doxycycline Hyclate 100 mg PO BID@0800,1700 11/23/24 11/23/24 History HYDROcodone/APAP 5-325MG [[place] 1 tab PO Q4HR PRN 11/23/24 11/23/24 History 5-325] Sennosides [Senokot] 8.6 mg PO DAILY@0800 11/23/24 11/23/24 History fluorouraciL [Efudex] 1 applic TOPICAL BID@0800,1700 11/23/24 11/23/24 History Allergies Allergy/AdvReac Type Severity Reaction Status Date / Time No Known Allergies Allergy Verified 11/23/24 10:54 Physical Exam Vitals: Vital Signs Temp Pulse Pulse Resp BP BP Pulse Ox 11/24/24 07:20 97.5 F L 72 16 134/79 95 11/24/24 02:00 97.4 F L 76 17 122/61 96 11/23/24 20:00 97.6 F 71 17 176/62 99 11/23/24 17:30 97.8 F 71 18 170/88 96 11/23/24 17:23 98.1 F 78 20 97 11/23/24 14:41 98.1 F 69 21 156/87 96 11/23/24 12:45 86 20 146/86 97 Intake and Output 11/23/24 11/24/24 11/24/24 22:59 06:59 14:59 Intake Total 118 Output Total 200 Balance -200 118 Intake: Oral 118 Output: Urine 200 Other: Voiding Method External Catheter External Catheter External Catheter # Voids 1 # Bowel Movements 0 1 Weight 74.843 kg Results CBC & Chem 7: 11/23/24 08:41 11/23/24 08:41 Labs: Abnormal Lab Results - Last 24 Hours (Table) 11/23/24 11/23/24 11/24/24 Range/Units 10:49 20:20 05:06 POC Glucose (mg/dL) 199 H (70-110) mg/dL Hemoglobin A1c 6.5 H (<=6.0) % Urine Protein 2+ H (Negative) Urine Glucose (UA) 3+ H (Negative) Urine Blood Large H (Negative) Ur Leukocyte Esterase Large H (Negative) Urine RBC >182 H (0-5) /hpf Urine WBC >182 H (0-5) /hpf Urine WBC Clumps Many H (None) /hpf Urine Bacteria Few H (None) /hpf 11/24/24 Range/Units 05:25 POC Glucose (mg/dL) 153 H (70-110) mg/dL Hemoglobin A1c (<=6.0) % Urine Protein (Negative) Urine Glucose (UA) (Negative) Urine Blood (Negative) Ur Leukocyte Esterase (Negative) Urine RBC (0-5) /hpf Urine WBC (0-5) /hpf Urine WBC Clumps (None) /hpf Urine Bacteria (None) /hpf Thrombosis Risk Factor Assmnt - Choose All That Apply Each Risk Factor Represents 3 Points: Age 75 years or older Thrombosis Risk Factor Assessment Total Risk Factor Score: 3 Thrombosis Risk Factor Assessment Level: Moderate Risk
[2024-11-24 12:27] LABS: Glucose,Whole Blood 211 mg/dL (70-110)
[2024-11-24] MEDS ORDERED: INSULIN ASPART (NovoLOG) 100 UNIT/ML VIAL SQ SCH (12:30)
[2024-11-24] MEDS: INSULIN ASPART (NovoLOG) 100 UNIT/ML VIAL SQ SCH (12:31)
[2024-11-24 12:35] LABS: BUN/Creat Ratio 20.04 Ratio (12.00-20.00); Blood Urea Nitrogen 46.1 mg/dL (9.0-27.0); Calcium 8.8 mg/dL (8.7-10.3); Carbon Dioxide 19.9 mmol/L (21.6-31.8); Chloride 108 mmol/L (96-109); Glucose 148 mg/dL (70-110); Potassium 4.4 mmol/L (3.5-5.5); Sodium 140 mmol/L (135-145)
[2024-11-24 12:52] LABS: HCT 38.1 % (39.6-50.0); HGB 11.5 g/dL (13.0-17.0); MCH 30.8 pg (27.0-32.0); MCHC 30.2 g/dL (32.0-37.0); MCV 102.1 FL (80.0-97.0); Mean Platelet Volume 9.8 FL (9.5-12.2); NRBC Per 100 WBC 0 X 10*3/uL (0.00-0.01); Platelet Count 413 X 10*3/uL (140-440); RBC 3.73 X 10*6/uL (4.40-5.60); RDW 13.5 % (11.5-14.5); WBC 18.85 X 10*3/uL (4.50-10.00)
[2024-11-24 13:36] LABS: Basophils # (A) 0.06 X 10*3/uL (0.00-0.10); Basophils % (A) 0.3 %; Eosinophils # (A) 0.06 X 10*3/uL (0.04-0.35); Eosinophils % (A) 0.3 %; Lymphocytes % (A) 11.1 %; Monocytes # (A) 1.73 X 10*3/uL (0.20-1.00); Monocytes % (A) 9.2 %; Neutrophils # (A) 14.78 X 10*3/uL (1.80-7.70); Neutrophils % (A) 78.5 %
[2024-11-24 17:16] LABS: Glucose,Whole Blood 204 mg/dL (70-110)
[2024-11-24] MEDS: HEPARIN SODIUM,PORCINE 5,000 UNIT/ML 1 ML VIAL SQ SCH (19:45)
[2024-11-24 20:02] LABS: Glucose,Whole Blood 174 mg/dL (70-110)
[2024-11-25 05:27] LABS: Glucose,Whole Blood 153 mg/dL (70-110)
[2024-11-25 07:29] LABS: HCT 36.9 % (39.0-53.0); HGB 11.3 gm/dL (13.0-17.5); Hypochromasia Moderate; MCH 30.7 pg (25.0-35.0); MCHC 30.8 g/dL (31.0-37.0); MCV 99.9 fL (80.0-100.0); Mean Platelet Volume 7.3; Platelet Count 412 k/uL (150-450); RBC 3.69 m/uL (4.30-5.90); RDW 13.3 % (11.5-15.5); WBC 16.5 k/uL (3.8-10.6)
[2024-11-25 07:47] LABS: African American GFR (CKD) 26 (>60 ml/min/1.73 sqM); Anion Gap 7 mmol/L; Blood Urea Nitrogen 46 mg/dL (9-20); Calcium 8.7 mg/dL (8.4-10.2); Carbon Dioxide 22 mmol/L (22-30); Chloride 107 mmol/L (98-107); Glucose 130 mg/dL (74-99); Non-African American GFR(CKD) 22 (>60 ml/min/1.73 sqM); Potassium 4.2 mmol/L (3.5-5.1); Sodium 136 mmol/L (137-145)
[2024-11-25] MEDS: FAMOTIDINE 20 MG TAB PO SCH (08:33)
--- NOTE | 2024-11-25 11:51 | P.PN ---
Subjective Progress Note Date: 11/25/24 89-year-old male was sent in from [facility] for decreased p.o. intake and increased generalized weakness from his baseline. I cannot get any kind of history from the patient patient appears to have dementia mostly bedbound [facility] the prison. Apparently patient is being treated for UTI although his admission medication does not reflect that he is on any antibiotics at this time his urine is significantly abnormal patient does not have any Aceves catheter at this time does have a condom catheter at this time. Patient has significantly elevated urine WBC. Patient has elevated white count of 18,600 although does not have any fevers. Patient has elevated creatinine of 2.49 which appears to be his baseline. 11/25/2024 Patient is seen in follow-up and extremely lethargic with generalized weakness although arousable but fatigues easily. Patient reports he does not feel well today and is lethargic. Patient per nursing staff with history of dementia mostly bedbound lives at a prison with plans on returning there on discharge. Patient is maintained on IV antibiotics in the form of ceftriaxone and preliminary culture showing gram-negative bacilli. Creatinine is slightly worse at 2.5 and sodium 136. White count is trending down at 16.5 and hemoglobin is stable. Review of systems: Constitutional: reports of fatigue, fever, or chills Cardiovascular: No reports of chest pain or palpitations Respiratory: No reports of shortness of breath or cough GI: No reports of nausea, vomiting, or diarrhea, reports not much of an appetite with abdominal pain : No reports of dysuria or retention Neurovascular: reports of weakness and does not walk much All medications have been reviewed PHYSICAL EXAMINATION: GENERAL: Patient is lethargic although arousable, falls asleep easily, unable to assess orientation, patient's baseline is alert and oriented to self, well-developed, elderly appearing, thin built, ill-appearing HEENT: Pupils are round and equally reacting to light. EOMI. No scleral icterus. No conjunctival pallor. Normocephalic, atraumatic. No pharyngeal erythema. No thyromegaly. CARDIOVASCULAR: S1 and S2 present. No murmurs, rubs, or gallops. PULMONARY: Diminished breath sounds bilaterally otherwise chest is clear to auscultation, no wheezing or crackles. ABDOMEN: Soft, mildly tender on palpation, nondistended, normoactive bowel sounds. No palpable organomegaly. MUSCULOSKELETAL: No joint swelling or deformity. EXTREMITIES: No cyanosis, clubbing, or pedal edema. NEUROLOGICAL: Gross neurological examination did not reveal any focal deficits. Significant generalized weakness, bedbound SKIN: No rashes. Assessment: -Sepsis secondary to urinary tract infection, present on admission with preliminary culture showing gram-negative bacilli. Patient had history of Klebsiella recently in the past -History of coronary disease with stents in the past -Sleep apnea -Type 2 diabetes mellitus -Hyperlipidemia -Hypertension -Peripheral vascular disease -CVA TIA in the past -Dementia -Generalized deconditioning, poor functional status mostly bedbound supportive care -GI prophylaxis -DVT prophylaxis -No code Plan: Patient is continued on IV antibiotics with infectious disease following awaiting urine culture is preliminary showing gram-negative bacilli. Patient also takes Farxiga although having recurrent UTIs recommend discontinuing Farxi ga and consider other alternatives per cardiology Patient resides at [facility] and will return there once stabilized currently awaiting urine culture to finalize White count is elevated although trending down Will follow-up on repeat labs and continue to monitor closely Possible discharge planning in the next 24 to 48 hours. Will discuss with case management regarding discharge planning on Tuesday The impression and plan of care has been dictated by Carlene Gallegos, Nurse Practitioner as directed. MD Sami I have performed a history and examination and MDM of this patient, discussed the same with the dictator, and agree with the dictator's assessment and plan as written ,documented as a scribe. Based on total visit time, I have performed more than 50% of the visit. Objective - Vital Signs Vital signs: Vital Signs Temp 97.7 F 11/25/24 07:00 Pulse 67 11/25/24 07:00 Resp 16 11/25/24 07:00 BP 126/75 11/25/24 07:00 Pulse Ox 97 11/25/24 07:00 FiO2 Intake & Output 11/24/24 11/25/24 11/25/24 18:59 06:59 18:59 Intake Total 354 Output Total 1200 Balance 354 -1200 Intake: Oral 354 Output: Urine 1200 Other: Voiding Method External Catheter External Catheter External Catheter # Voids 350 # Bowel Movements 1 1 1 - Labs CBC & Chem 7: 11/25/24 07:15 11/25/24 07:15 Labs: Abnormal Lab Results - Last 24 Hours (Table) 11/24/24 11/24/24 11/24/24 Range/Units 05:06 05:06 12:25 WBC 18.85 H (4.50-10.00) X 10*3/uL RBC 3.73 L (4.40-5.60) X 10*6/uL Hgb 11.5 L (13.0-17.0) g/dL Hct 38.1 L (39.6-50.0) % MCV 102.1 H (80.0-97.0) FL MCHC 30.2 L (32.0-37.0) g/dL Immature Gran # 0.12 H (0.00-0.04) X 10*3/uL Neutrophils # 14.78 H (1.80-7.70) X 10*3/uL Monocytes # 1.73 H (0.20-1.00) X 10*3/uL Sodium (137-145) mmol/L Carbon Dioxide 19.9 L (21.6-31.8) mmol/L Anion Gap 12.10 H (4.00-12.00) mmol/L BUN 46.1 H (9.0-27.0) mg/dL Creatinine 2.3 H (0.6-1.5) mg/dL Est GFR (CKD-EPI) 27 L (>=60) BUN/Creatinine Ratio 20.04 H (12.00-20.00) Ratio Glucose 148 H (70-110) mg/dL POC Glucose (mg/dL) 211 H (70-110) mg/dL 11/24/24 11/24/24 11/25/24 Range/Units 17:14 20:00 05:25 WBC (4.50-10.00) X 10*3/uL RBC (4.40-5.60) X 10*6/uL Hgb (13.0-17.0) g/dL Hct (39.6-50.0) % MCV (80.0-97.0) FL MCHC (32.0-37.0) g/dL Immature Gran # (0.00-0.04) X 10*3/uL Neutrophils # (1.80-7.70) X 10*3/uL Monocytes # (0.20-1.00) X 10*3/uL Sodium (137-145) mmol/L Carbon Dioxide (21.6-31.8) mmol/L Anion Gap (4.00-12.00) mmol/L BUN (9.0-27.0) mg/dL Creatinine (0.6-1.5) mg/dL Est GFR (CKD-EPI) (>=60) BUN/Creatinine Ratio (12.00-20.00) Ratio Glucose (70-110) mg/dL POC Glucose (mg/dL) 204 H 174 H 153 H (70-110) mg/dL 11/25/24 11/25/24 Range/Units 07:15 07:15 WBC 16.5 H (4.50-10.00) X 10*3/uL RBC 3.69 L (4.40-5.60) X 10*6/uL Hgb 11.3 L (13.0-17.0) g/dL Hct 36.9 L (39.6-50.0) % MCV (80.0-97.0) FL MCHC 30.8 L (32.0-37.0) g/dL Immature Gran # (0.00-0.04) X 10*3/uL Neutrophils # (1.80-7.70) X 10*3/uL Monocytes # (0.20-1.00) X 10*3/uL Sodium 136 L (137-145) mmol/L Carbon Dioxide (21.6-31.8) mmol/L Anion Gap (4.00-12.00) mmol/L BUN 46 H (9.0-27.0) mg/dL Creatinine 2.50 H (0.6-1.5) mg/dL Est GFR (CKD-EPI) (>=60) BUN/Creatinine Ratio (12.00-20.00) Ratio Glucose 130 H (70-110) mg/dL POC Glucose (mg/dL) (70-110) mg/dL Microbiology - Last 24 Hours (Table) 11/23/24 10:49 Urine Culture - Preliminary Urine,Catheterized Gram Neg Bacilli
[2024-11-25 12:08] LABS: Glucose,Whole Blood 200 mg/dL (70-110)
[2024-11-25 17:14] LABS: Glucose,Whole Blood 186 mg/dL (70-110)
[2024-11-25 20:16] LABS: Glucose,Whole Blood 183 mg/dL (70-110)
[2024-11-26 05:47] LABS: Glucose,Whole Blood 129 mg/dL (70-110)
--- NOTE | 2024-11-26 07:15 | P.CONS ---
History of Present Illness - Reason for Consult Consult date: 11/25/24 UTI, gram-negative Requesting physician: Carlene Gallegos - Chief Complaint Mental status changes weakness x few days - History of Present Illness Patient is a 89-year-old male with past medical history significant for Coronary Artery Disease (CAD), bladder cancer, CVA/TIA, Diabetes Mellitus, Hyperlipidemia, Hypertension, Myocardial Infarction ([place]), Prostate Disorder, Sleep Apnea/CPAP/BIPAP, Vascular Disorder also with recurrent UTIs has been brought into the hospital for evaluation of decreased oral intake overall not feeling well and apparently the patient was being treated for UTI at the residential with oral doxycycline patient on presentation to the hospital was afebrile no fever have been recorded subsequently patient was not tachycardic hypotensive or hypoxic he did have elevated white count of 18.6 creatinine is 2.4,Electrolytes has been normal liver isms are normal urine has been positive chest x-ray borderline heart size mild hesitation pulmonary prominence patient has been treated with Rocephin infectious disease was consulted for recurrent UTI and failing outpatient therapy, according to the son present at the bedside patient seem to be dealing with UTI after he did have cystoscopy that was suggestive of bladder cancer and history of multiple courses of antibiotic review of his culture today shows he did grew Enterococcus faecalis x 2 in November of last year followed by ESBL E. coli x 2 in December since then he has negative urine culture with the last urine culture done on 11/17/2024 positive for Klebsiella sensitive to ceftriaxone patient did have problems with incomplete emptying of the bladder patient has been complaining of some burning of urine but no suprapubic discomfort nausea vomiting and son was concerned about the mental status changes Review of Systems Positive point and negatives has been mentioned in the HPI, complete review of systems was performed and all other systems are negative Past Medical History Past Medical History: Coronary Artery Disease (CAD), Cancer, CVA/TIA, Diabetes Mellitus, Hyperlipidemia, Hypertension, Myocardial Infarction ([place]), Prostate Disorder, Sleep Apnea/CPAP/BIPAP, Vascular Disorder Additional Past Medical History / Comment(s): TIA in 2014, MICHAEL without device, CKD stage III, chronic low back pain, migraines in past, vertigo, balance issues, falls, BPH, benign colon polyp, diverticular disease, vascular disease with surgery-AAA repair and R leg bypass, skin cancer with removal, superficial bladder cancer Last Myocardial Infarction Date:: 04/17/17 History of Any Multi-Drug Resistant Organisms: ESBL Year Discovered:: 01/19/24 MDRO Source:: Urine Past Surgical History: Adenoidectomy, Heart Catheterization With Stent, Tonsillectomy Additional Past Surgical History / Comment(s): 12/07/18 endovascular repair/stent graft infra renal aorta, R leg bypass surgery after AAA repair at [facility], colonoscopy/polypectomy, basal cell cancer removed from forehead, bilateral cataract removals/lens implants, cystoscopy -biopsy for cancer Past Anesthesia/Blood Transfusion Reactions: Motion Sickness Additional Past Anesthesia/Blood Transfusion Reaction / Comm: . Date of Last Stent Placement:: 03/2017 Past Psychological History: Anxiety, Depression Additional Psychological History / Comment(s): . Smoking Status: Former smoker Past Alcohol Use History: None Reported Additional Past Alcohol Use History / Comment(s): Pt started smoking in 1957 and quit in 1986. smoked 1ppd Past Drug Use History: None Reported - Past Family History Brother(s) Family Medical History: No Reported History Sister(s) Family Medical History: No Reported History Son(s) Family Medical History: No Reported History Father Family Medical History: Diabetes Mellitus, Myocardial Infarction ([place]), Vascular Disorder Additional Family Medical History / Comment(s): Father of a NC at the age of 76 or 77yrs. He was an alcoholic. Mother Family Medical History: Deep Vein Thrombosis (DVT), Pulmonary Embolus Additional Family Medical History / Comment(s): Mother at 42 yrs of age of "blood clot" in the lung and it went to the heart. Medications and Allergies Home Medications Medication Instructions Recorded Confirmed Type Cyanocobalamin (Vitamin B-12) 1,000 mcg PO DAILY@0800 04/17/17 11/23/24 History [Vitamin B-12] Finasteride [Proscar] 5 mg PO DAILY@0800 12/01/18 11/23/24 History Tamsulosin HCl [Flomax] 0.4 mg PO BID@0800,2100 11/18/21 11/23/24 History Cholecalciferol [Vitamin D3 (25 25 mcg PO DAILY@0800 03/19/22 11/23/24 History Mcg = 1000 Iu)] Acetaminophen/Diphenhydramine 2 tab PO HS@212912/11/23 11/23/24 History [Tylenol PM 500-25mg] Atorvastatin [Lipitor] 10 mg PO HS@209912/11/23 11/23/24 History Dextran/Hypromellose/Glycerin 2 drop BOTH EYES BID@0800,209912/11/23 11/23/24 History [Genteal Tears 0.1%-0.2%-0.3%] Donepezil [Aricept] 10 mg PO HS@209912/11/23 11/23/24 History Escitalopram [Lexapro] 10 mg PO DAILY@0800 12/11/23 11/23/24 History Famotidine [Pepcid] 40 mg PO DAILY@0800 12/11/23 11/23/24 History Ferrous Sulfate [Iron (65 MG 325 mg PO DAILY@0800 12/11/23 11/23/24 History Elemental)] L.acidoph,Paracasei, B.lactis 1 cap PO BID@0800,1700 12/11/23 11/23/24 History [Probiotic] Magnesium Hydroxide [Milk of 7,200 mg PO Q48H PRN 12/11/23 11/23/24 History Magnesia Concentrate] Na Phos,M-B/Na Phos,Di-Ba [Fleet 133 ml RECTAL DAILY PRN 12/11/23 11/23/24 History Adult] Ondansetron [Zofran] 4 mg PO Q6H PRN 12/11/23 11/23/24 History bisacodyL [Dulcolax] 10 mg RECTAL DAILY PRN 12/11/23 11/23/24 History glipiZIDE [Glucotrol] 10 mg PO BID@0800,1700 12/11/23 11/23/24 History Aspirin 81 mg PO DAILY@0800 01/05/24 11/23/24 History Dapagliflozin Propanediol [Farxiga] 5 mg PO DAILY@0800 01/05/24 11/23/24 History Glucerna Shake 120 ml PO TID@0800,1200,1700 01/05/24 11/23/24 History INSULIN ASPART (NovoLOG) [NovoLOG See Protocol SQ 01/05/24 11/23/24 History (formulary)] ACHS@07,11,1630,2130 ALPRAZolam [Xanax] 0.25 mg PO BID 11/23/24 11/23/24 History Acetaminophen Tab [Tylenol] 650 mg PO Q4H PRN 11/23/24 11/23/24 History Doxycycline Hyclate 100 mg PO BID@0800,1700 11/23/24 11/23/24 History HYDROcodone/APAP 5-325MG [Conklin 1 tab PO Q4HR PRN 11/23/24 11/23/24 History 5-325] Sennosides [Senokot] 8.6 mg PO DAILY@0800 11/23/24 11/23/24 History fluorouraciL [Efudex] 1 applic TOPICAL BID@0800,1700 11/23/24 11/23/24 History Allergies Allergy/AdvReac Type Severity Reaction Status Date / Time No Known Allergies Allergy Verified 11/23/24 10:54 Physical Exam Vitals: Vital Signs Temp Pulse Resp BP Pulse Ox 11/25/24 07:00 97.7 F 67 16 126/75 97 11/25/24 02:00 97.7 F 88 17 145/81 97 11/24/24 20:00 98.0 F 76 17 149/82 99 11/24/24 14:00 60 17 132/83 97 Intake and Output 11/24/24 11/25/24 11/25/24 22:59 06:59 14:59 Intake Total 118 Output Total 700 500 Balance -582 -500 Intake: Oral 118 Output: Urine 700 500 Other: Voiding Method External Catheter External Catheter External Catheter # Bowel Movements 1 1 GENERAL DESCRIPTION: Elderly male lying in bed, no distress. No tachypnea or accessory muscle of respiration use. HEENT: Shows Pallor , no scleral icterus. Oral mucous membrane is dry. NECK: Trachea central, no thyromegaly. LUNGS: Unlabored breathing. Clear to auscultation anteriorly. No wheeze or cr ackle. HEART: S1, S2, regular rate and rhythm. No loud murmur ABDOMEN: Soft, no tenderness , guarding or rigidity, no organomegaly EXTREMITIES: No edema of feet. SKIN: No rashes to the neck but no generalized body rash NEUROLOGICAL: The patient is awake, alert, mood and affect normal. Results CBC & Chem 7: 11/25/24 07:15 11/25/24 07:15 Labs: Abnormal Lab Results - Last 24 Hours (Table) 11/24/24 11/24/24 11/24/24 Range/Units 05:06 05:06 12:25 WBC 18.85 H (4.50-10.00) X 10*3/uL RBC 3.73 L (4.40-5.60) X 10*6/uL Hgb 11.5 L (13.0-17.0) g/dL Hct 38.1 L (39.6-50.0) % MCV 102.1 H (80.0-97.0) FL MCHC 30.2 L (32.0-37.0) g/dL Immature Gran # 0.12 H (0.00-0.04) X 10*3/uL Neutrophils # 14.78 H (1.80-7.70) X 10*3/uL Monocytes # 1.73 H (0.20-1.00) X 10*3/uL Sodium (137-145) mmol/L Carbon Dioxide 19.9 L (21.6-31.8) mmol/L Anion Gap 12.10 H (4.00-12.00) mmol/L BUN 46.1 H (9.0-27.0) mg/dL Creatinine 2.3 H (0.6-1.5) mg/dL Est GFR (CKD-EPI) 27 L (>=60) BUN/Creatinine Ratio 20.04 H (12.00-20.00) Ratio Glucose 148 H (70-110) mg/dL POC Glucose (mg/dL) 211 H (70-110) mg/dL 11/24/24 11/24/24 11/25/24 Range/Units 17:14 20:00 05:25 WBC (4.50-10.00) X 10*3/uL RBC (4.40-5.60) X 10*6/uL Hgb (13.0-17.0) g/dL Hct (39.6-50.0) % MCV (80.0-97.0) FL MCHC (32.0-37.0) g/dL Immature Gran # (0.00-0.04) X 10*3/uL Neutrophils # (1.80-7.70) X 10*3/uL Monocytes # (0.20-1.00) X 10*3/uL Sodium (137-145) mmol/L Carbon Dioxide (21.6-31.8) mmol/L Anion Gap (4.00-12.00) mmol/L BUN (9.0-27.0) mg/dL Creatinine (0.6-1.5) mg/dL Est GFR (CKD-EPI) (>=60) BUN/Creatinine Ratio (12.00-20.00) Ratio Glucose (70-110) mg/dL POC Glucose (mg/dL) 204 H 174 H 153 H (70-110) mg/dL 11/25/24 11/25/24 11/25/24 Range/Units 07:15 07:15 12:06 WBC 16.5 H (4.50-10.00) X 10*3/uL RBC 3.69 L (4.40-5.60) X 10*6/uL Hgb 11.3 L (13.0-17.0) g/dL Hct 36.9 L (39.6-50.0) % MCV (80.0-97.0) FL MCHC 30.8 L (32.0-37.0) g/dL Immature Gran # (0.00-0.04) X 10*3/uL Neutrophils # (1.80-7.70) X 10*3/uL Monocytes # (0.20-1.00) X 10*3/uL Sodium 136 L (137-145) mmol/L Carbon Dioxide (21.6-31.8) mmol/L Anion Gap (4.00-12.00) mmol/L BUN 46 H (9.0-27.0) mg/dL Creatinine 2.50 H (0.6-1.5) mg/dL Est GFR (CKD-EPI) (>=60) BUN/Creatinine Ratio (12.00-20.00) Ratio Glucose 130 H (70-110) mg/dL POC Glucose (mg/dL) 200 H (70-110) mg/dL Microbiology - Last 24 Hours (Table) 11/23/24 10:49 Urine Culture - Preliminary Urine,Catheterized Gram Neg Bacilli Assessment and Plan (1) Failure of outpatient treatment Current Visit: Yes Status: Acute Code(s): Z78.9 - OTHER SPECIFIED HEALTH STATUS SNOMED Code(s): 352281348 (2) UTI (urinary tract infection) Current Visit: Yes Status: Acute Code(s): N39.0 - URINARY TRACT INFECTION, SITE NOT SPECIFIED SNOMED Code(s): 49974714 (3) Leukocytosis Current Visit: No Status: Acute Code(s): D72.829 - ELEVATED WHITE BLOOD CELL COUNT, UNSPECIFIED SNOMED Code(s): 245015391 Plan: 1patient presented to hospital with weakness mental status change and not feeling well urinary symptoms did have elevated white count positive UA concerning for symptomatic UTI likely from enteric gram-negative pathogen with recent urine culture positive for Klebsiella failing outpatient oral tetracycline therapy with etiology of his recurrent UTI more likely due to incomplete emptying of the bladder 2with elevated creatinine we will check ultrasound of the kidney may show evidence of any obstructive uropathy 3we will increase the dose of Rocephin to 2 g daily We will follow on clinical condition and cultures to further adjust medication if needed Thank you for this consultation we will follow the patient along with you Dictation was produced using [employer] dictation software. please excuse any grammatical, word or spelling errors. Time with Patient: Greater than 30
[2024-11-26 08:45] LABS: Basophils # (A) 0.05 X 10*3/uL (0.00-0.10); Basophils % (A) 0.3 %; Eosinophils # (A) 0.14 X 10*3/uL (0.04-0.35); Eosinophils % (A) 0.9 %; HCT 37.5 % (39.6-50.0); HGB 11.4 g/dL (13.0-17.0); Lymphocytes # (A) 2.09 X 10*3/uL (0.90-5.00); Lymphocytes % (A) 14.1 %; MCH 30.6 pg (27.0-32.0); MCHC 30.4 g/dL (32.0-37.0); MCV 100.8 FL (80.0-97.0); Mean Platelet Volume 9.5 FL (9.5-12.2); Monocytes # (A) 1.12 X 10*3/uL (0.20-1.00); Monocytes % (A) 7.5 %; NRBC Per 100 WBC 0 X 10*3/uL (0.00-0.01); Neutrophils # (A) 11.34 X 10*3/uL (1.80-7.70); Neutrophils % (A) 76.5 %; Platelet Count 417 X 10*3/uL (140-440); RBC 3.72 X 10*6/uL (4.40-5.60); RDW 13.2 % (11.5-14.5); WBC 14.84 X 10*3/uL (4.50-10.00)
[2024-11-26 11:45] LABS: BUN/Creat Ratio 15.42 Ratio (12.00-20.00); Calcium 8.8 mg/dL (8.7-10.3); Chloride 108 mmol/L (96-109); Glucose 129 mg/dL (70-110); Potassium 4.4 mmol/L (3.5-5.5); Sodium 140 mmol/L (135-145)
[2024-11-26 12:04] LABS: Glucose,Whole Blood 242 mg/dL (70-110)
--- NOTE | 2024-11-26 12:32 | P.PN ---
Subjective Progress Note Date: 11/26/24 Principal diagnosis: Reason for follow-up is UTI/leukocytosis Patient is a 89-year-old male with past medical history significant for Coronary Artery Disease (CAD), bladder cancer, CVA/TIA, Diabetes Mellitus, Hyperlipidemia, Hypertension, Myocardial Infarction ([place]), Prostate Disorder, Sleep Apnea/CPAP/BIPAP, Vascular Disorder also with recurrent UTIs has been brought into the hospital for evaluation of decreased oral intake, mental status changes positive UA concerning for symptomatic UTI failing outpatient oral tetracycline therapy. On today's evaluation that is 11/26/2024, patient has been afebrile, patient is breathing comfortably and is currently on room air, patient denies having any significant cough no chest pain, patient denies nausea vomiting or diarrhea and no abdominal pain. Patient white count is 14.84 creatinine is 2.4 ultrasound currently pending Objective - Vital Signs Vital signs: Vital Signs Temp 97.5 F L 11/26/24 07:00 Pulse 70 11/26/24 07:00 Resp 17 11/26/24 08:00 BP 119/69 11/26/24 07:00 Pulse Ox 97 11/26/24 07:00 FiO2 Intake & Output 11/25/24 11/26/24 11/26/24 18:59 06:59 18:59 Output Total 1301 Balance -1301 Output: Urine 1300 Stool 1 Other: Voiding Method External Catheter External Catheter # Voids 1 # Bowel Movements 1 - Exam GENERAL DESCRIPTION: An elderly male lying in bed in no distress RESPIRATORY SYSTEM: Unlabored breathing , decreased breath sounds at bases HEART: S1 S2 regular rate and rhythm , ABDOMEN: Soft , no tenderness EXTREMITIES: No edema feet - Labs CBC & Chem 7: 11/26/24 05:02 11/26/24 05:02 Labs: Abnormal Lab Results - Last 24 Hours (Table) 11/25/24 11/25/24 11/26/24 Range/Units 17:13 20:09 05:02 WBC 14.84 H (4.50-10.00) X 10*3/uL RBC 3.72 L (4.40-5.60) X 10*6/uL Hgb 11.4 L (13.0-17.0) g/dL Hct 37.5 L (39.6-50.0) % MCV 100.8 H (80.0-97.0) FL MCHC 30.4 L (32.0-37.0) g/dL Immature Gran # 0.10 H (0.00-0.04) X 10*3/uL Neutrophils # 11.34 H (1.80-7.70) X 10*3/uL Monocytes # 1.12 H (0.20-1.00) X 10*3/uL Carbon Dioxide (21.6-31.8) mmol/L BUN (9.0-27.0) mg/dL Creatinine (0.6-1.5) mg/dL Est GFR (CKD-EPI) (>=60) Glucose (70-110) mg/dL POC Glucose (mg/dL) 186 H 183 H (70-110) mg/dL 11/26/24 11/26/24 11/26/24 Range/Units 05:02 05:45 12:02 WBC (4.50-10.00) X 10*3/uL RBC (4.40-5.60) X 10*6/uL Hgb (13.0-17.0) g/dL Hct (39.6-50.0) % MCV (80.0-97.0) FL MCHC (32.0-37.0) g/dL Immature Gran # (0.00-0.04) X 10*3/uL Neutrophils # (1.80-7.70) X 10*3/uL Monocytes # (0.20-1.00) X 10*3/uL Carbon Dioxide 21.0 L (21.6-31.8) mmol/L BUN 37.0 H (9.0-27.0) mg/dL Creatinine 2.4 H (0.6-1.5) mg/dL Est GFR (CKD-EPI) 25 L (>=60) Glucose 129 H (70-110) mg/dL POC Glucose (mg/dL) 129 H 242 H (70-110) mg/dL Microbiology - Last 24 Hours (Table) 11/23/24 10:49 Urine Culture - Final Urine,Catheterized Klebsiella pneumoniae Assessment and Plan (1) Failure of outpatient treatment Current Visit: Yes Status: Acute Code(s): Z78.9 - OTHER SPECIFIED HEALTH STATUS SNOMED Code(s): 870216160 (2) UTI (urinary tract infection) Current Visit: Yes Status: Acute Code(s): N39.0 - URINARY TRACT INFECTION, SITE NOT SPECIFIED SNOMED Code(s): 80361622 (3) Leukocytosis Current Visit: No Status: Acute Code(s): D72.829 - ELEVATED WHITE BLOOD CELL COUNT, UNSPECIFIED SNOMED Code(s): 207613626 Plan: 1patient presented to hospital with weakness mental status change and not feeling well urinary symptoms did have elevated white count positive UA concerning for symptomatic UTI likely from enteric gram-negative pathogen with recent urine culture positive for Klebsiella failing outpatient oral tetracycline therapy with etiology of his recurrent UTI more likely due to incomplete emptying of the bladder 2with elevated creatinine, currently waiting for ultrasound of the kidney may show evidence of any obstructive uropathy 3patient urine has been finalized with Klebsiella sensitive to Rocephin we will continue white count is still elevated, if the ultrasound did not show any obstructive uropathy plan will be to finish therapy with oral Ceftin Dictation was produced using [employer] dictation software. please excuse any grammatical, word or spelling errors. Time with Patient: Less than 30
--- NOTE | 2024-11-26 16:26 | US ---
EXAMINATION TYPE: US kidneys/renal and bladder DATE OF EXAM: 11/26/2024 COMPARISON: US 2021 CLINICAL INDICATION: Male, 89 years old with history of uti and bacteremia; UTI and bacteremia. Hx of bladder cancer with a procedure. TECHNIQUE: Grayscale imaging of the bilateral kidneys and urinary bladder: FINDINGS: EXAM MEASUREMENTS: Right Kidney: 12.7 x 6.4 x 6.6 cm Left Kidney: 9.0 x 4.5 x 5.2 cm Right Kidney: *[place] seen. Slightly enlarged. Left Kidney: Appears smaller in size in comparison to right kidney. *[place] seen. Bladder: *Echogenic material seen within: 5.3 x 4.7 x 1.9 cm. Appearance of probable diverticulum toward the right of the bladder. Bilateral Jets seen: Right jet seen. Difficult to evaluate due to internal debris, left jet not see n with certainty. IMPRESSION: Bilateral hydrocele hydronephrosis, 2. Consider further evaluation with CT urogram. 1. 2. Bladder debris with diverticula. Consider further evaluation with CT urogram. [facility], , 11/26/2024 4:24 PM
[2024-11-26 17:07] LABS: Glucose,Whole Blood 142 mg/dL (70-110)
[2024-11-26] MEDS: THIAMINE 100 MG TAB PO SCH (18:19)
[2024-11-26] MEDS: MULTIVITAMINS, THERA 1 EACH TAB PO SCH (18:19)
[2024-11-26] MEDS: FOLIC ACID 1 MG TAB PO SCH (18:19)
[2024-11-26 21:28] LABS: Glucose,Whole Blood 230 mg/dL (70-110)
[2024-11-26] MEDS: INSULIN ASPART (NovoLOG) 100 UNIT/ML VIAL SQ SCH (23:06)
--- NOTE | 2024-11-26 23:58 | P.PN ---
Subjective Progress Note Date: 11/26/24 89-year-old male was sent in from [facility] for decreased p.o. intake and increased generalized weakness from his baseline. I cannot get any kind of history from the patient patient appears to have dementia mostly bedbound at the residential. Apparently patient is being treated for UTI although his admission medication does not reflect that he is on any antibiotics at this time his urine is significantly abnormal patient does not have any Aceves catheter at this time does have a condom catheter at this time. Patient has significantly elevated urine WBC. Patient has elevated white count of 18,600 although does not have any fevers. Patient has elevated creatinine of 2.49 which appears to be his baseline. 11/25/2024 Patient is seen in follow-up and extremely lethargic with generalized weakness although arousable but fatigues easily. Patient reports he does not feel well today and is lethargic. Patient per nursing staff with history of dementia mostly bedbound lives at a residential with plans on returning there on discharge. Patient is maintained on IV antibiotics in the form of ceftriaxone and preliminary culture showing gram-negative bacilli. Creatinine is slightly worse at 2.5 and sodium 136. White count is trending down at 16.5 and hemoglobin is stable. 11/26/2024 Patient is seen in follow-up today with infectious disease following. Patient white count elevated today and recommending an ultrasound which is pending at this time. Patient is continued on ceftriaxone and will continue. Awaiting urine culture and clearance of white count. Patient does have chronic kidney disease although kidney functions are worsening, will consult nephrology as well as urology and appreciate input and recommendations. Follow-up on repeat labs in the a.m. Review of systems: Constitutional: reports of fatigue, fever, or chills Cardiovascular: No reports of chest pain or palpitations Respiratory: No reports of shortness of breath or cough GI: No reports of nausea, vomiting, or diarrhea, reports not much of an appetite with abdominal pain : No reports of dysuria or retention Neurovascular: reports of weakness and does not walk much All medications have been reviewed PHYSICAL EXAMINATION: GENERAL: Patient is lethargic although arousable, falls asleep easily, unable to assess orientation, patient's baseline is alert and oriented to self, well- developed, elderly appearing, thin built, ill-appearing HEENT: Pupils are round and equally reacting to light. EOMI. No scleral icterus. No conjunctival pallor. Normocephalic, atraumatic. No pharyngeal erythema. No thyromegaly. CARDIOVASCULAR: S1 and S2 present. No murmurs, rubs, or gallops. PULMONARY: Diminished breath sounds bilaterally otherwise chest is clear to auscultation, no wheezing or crackles. ABDOMEN: Soft, mildly tender on palpation, nondistended, normoactive bowel sounds. No palpable organomegaly. MUSCULOSKELETAL: No joint swelling or deformity. EXTREMITIES: No cyanosis, clubbing, or pedal edema. NEUROLOGICAL: Gross neurological examination did not reveal any focal deficits. Significant generalized weakness, bedbound SKIN: No rashes. Assessment: -Sepsis secondary to urinary tract infection, present on admission with cultures finalized as Klebsiella pneumonia. Patient had history of Klebsiella recently in the past -History of coronary disease with stents in the past -Sleep apnea -Type 2 diabetes mellitus, uncontrolled with hyperglycemia -Hyperlipidemia -Hypertension -Peripheral vascular disease -CVA TIA in the past -Dementia -Generalized deconditioning, poor functional status mostly bedbound supportive care -GI prophylaxis -DVT prophylaxis -No code Plan: Patient is continued on IV antibiotics with infectious disease following and urine culture showing Klebsiella. Continued on ceftriaxone although having worsening white count, ultrasound of the kidneys ordered and pending. Patient also takes Farxiga although having recurrent UTIs recommend discontinuing Farx iga and consider other alternatives per cardiology Patient resides at [facility] and will return there once stabilized currently awaiting urine culture to finalize White count is elevated and will follow-up on repeat labs. Consult to urology and nephrology pending and appreciate input and recommendations as patient did have an ultrasound with concerns of hydronephrosis Possible discharge planning in the next 24 to 48 hours. Once cleared by consultations Due to multiple complex medical issues, overall prognosis is guarded The impression and plan of care has been dictated by Carlene Gallegos, Nurse Practitioner as directed. Dr. Bon MD I have performed a history and examination and MDM of this patient, discussed the same with the dictator, and agree with the dictator's assessment and plan as written ,documented as a scribe. Based on total visit time, I have performed more than 50% of the visit. Objective - Vital Signs Vital signs: Vital Signs Temp 97.9 F 11/26/24 14:16 Pulse 67 11/26/24 14:16 Resp 17 11/26/24 14:16 BP 110/70 11/26/24 14:16 Pulse Ox 97 11/26/24 14:16 FiO2 Intake & Output 11/25/24 11/26/24 11/26/24 18:59 06:59 18:59 Intake Total 118 Output Total 1301 476 Balance -0095 -668 Intake: Oral 118 Output: Urine 1300 475 Stool 1 1 Other: Voiding Method External Catheter External Catheter External Catheter # Voids 1 # Bowel Movements 1 - Labs CBC & Chem 7: 11/26/24 05:02 11/26/24 05:02 Labs: Abnormal Lab Results - Last 24 Hours (Table) 11/25/24 11/25/24 11/26/24 Range/Units 17:13 20:09 05:02 WBC 14.84 H (4.50-10.00) X 10*3/uL RBC 3.72 L (4.40-5.60) X 10*6/uL Hgb 11.4 L (13.0-17.0) g/dL Hct 37.5 L (39.6-50.0) % MCV 100.8 H (80.0-97.0) FL MCHC 30.4 L (32.0-37.0) g/dL Immature Gran # 0.10 H (0.00-0.04) X 10*3/uL Neutrophils # 11.34 H (1.80-7.70) X 10*3/uL Monocytes # 1.12 H (0.20-1.00) X 10*3/uL Carbon Dioxide (21.6-31.8) mmol/L BUN (9.0-27.0) mg/dL Creatinine (0.6-1.5) mg/dL Est GFR (CKD-EPI) (>=60) Glucose (70-110) mg/dL POC Glucose (mg/dL) 186 H 183 H (70-110) mg/dL 11/26/24 11/26/24 11/26/24 Range/Units 05:02 05:45 12:02 WBC (4.50-10.00) X 10*3/uL RBC (4.40-5.60) X 10*6/uL Hgb (13.0-17.0) g/dL Hct (39.6-50.0) % MCV (80.0-97.0) FL MCHC (32.0-37.0) g/dL Immature Gran # (0.00-0.04) X 10*3/uL Neutrophils # (1.80-7.70) X 10*3/uL Monocytes # (0.20-1.00) X 10*3/uL Carbon Dioxide 21.0 L (21.6-31.8) mmol/L BUN 37.0 H (9.0-27.0) mg/dL Creatinine 2.4 H (0.6-1.5) mg/dL Est GFR (CKD-EPI) 25 L (>=60) Glucose 129 H (70-110) mg/dL POC Glucose (mg/dL) 129 H 242 H (70-110) mg/dL Microbiology - Last 24 Hours (Table) 11/23/24 10:49 Urine Culture - Final Urine,Catheterized Klebsiella pneumoniae
[2024-11-27 05:56] LABS: Glucose,Whole Blood 113 mg/dL (70-110)
[2024-11-27 09:09] LABS: Basophils # (A) 0.04 X 10*3/uL (0.00-0.10); Basophils % (A) 0.3 %; Eosinophils # (A) 0.15 X 10*3/uL (0.04-0.35); HGB 10.8 g/dL (13.0-17.0); Lymphocytes # (A) 2.03 X 10*3/uL (0.90-5.00); Lymphocytes % (A) 13.5 %; MCH 30.7 pg (27.0-32.0); MCHC 30.9 g/dL (32.0-37.0); MCV 99.4 FL (80.0-97.0); Mean Platelet Volume 9.7 FL (9.5-12.2); NRBC Per 100 WBC 0 X 10*3/uL (0.00-0.01); Neutrophils # (A) 11.51 X 10*3/uL (1.80-7.70); Neutrophils % (A) 76.3 %; Platelet Count 410 X 10*3/uL (140-440); RBC 3.52 X 10*6/uL (4.40-5.60); WBC 15.06 X 10*3/uL (4.50-10.00)
[2024-11-27 09:20] LABS: ALT 57 U/L (10-49); AST 49 U/L (14-35); Albumin 2.3 g/dL (3.8-4.9); Albumin/Globulin Ratio 0.72 Ratio (1.60-3.17); Alkaline Phosphatase 107 U/L (41-126); BUN/Creat Ratio 14.64 Ratio (12.00-20.00); Blood Urea Nitrogen 32.2 mg/dL (9.0-27.0); Calcium 8.5 mg/dL (8.7-10.3); Carbon Dioxide 21.4 mmol/L (21.6-31.8); Chloride 108 mmol/L (96-109); Globulin 3.2 g/dL (1.6-3.3); Glucose 112 mg/dL (70-110); Magnesium 1.8 mg/dL (1.5-2.4); Potassium 4.2 mmol/L (3.5-5.5); Sodium 138 mmol/L (135-145); Total Bilirubin <0.2 mg/dL (0.3-1.2); Total Protein 5.5 g/dL (6.2-8.2)
--- NOTE | 2024-11-27 11:41 | P.NPCON ---
History of Present Illness - Reason for Consult acute renal failure - History of Present Illness Patient is an 89-year-old male who is admitted to the hospital from [facility] with complaints of increased weakness and mental status changes.. Patient states that he has been treated for urinary tract infection. He has been voiding. No history of nausea vomiting or diarrhea. Serum creatinine was 2.49 on 11/23/24 and has been improved to 2.2 today. No significant hypotension noted. Patient has an external catheter. Ultrasound of the kidneys shows bilateral hydronephrosis. Maintained on IV fluids at 50 cc an hour. Past Medical History Past Medical History: Coronary Artery Disease (CAD), Cancer, CVA/TIA, Diabetes Mellitus, Hyperlipidemia, Hypertension, Myocardial Infarction ([place]), Prostate Disorder, Sleep Apnea/CPAP/BIPAP, Vascular Disorder Additional Past Medical History / Comment(s): TIA in 2014, MICHAEL without device, CKD stage III, chronic low back pain, migraines in past, vertigo, balance issues, falls, BPH, benign colon polyp, diverticular disease, vascular disease with surgery-AAA repair and R leg bypass, skin cancer with removal, superficial bladder cancer Last Myocardial Infarction Date:: 04/17/17 History of Any Multi-Drug Resistant Organisms: ESBL Date of last positivie culture/infection: 01/19/24 MDRO Source:: Urine Past Surgical History: Adenoidectomy, Heart Catheterization With Stent, Tonsill ectomy Additional Past Surgical History / Comment(s): 12/07/18 endovascular repair/stent graft infra renal aorta, R leg bypass surgery after AAA repair at [facility], colonoscopy/polypectomy, basal cell cancer removed from forehead, bilateral cataract removals/lens implants, cystoscopy -biopsy for cancer Past Anesthesia/Blood Transfusion Reactions: Motion Sickness Additional Past Anesthesia/Blood Transfusion Reaction / Comment(s): . Date of Last Stent Placement:: 03/2017 Past Psychological History: Anxiety, Depression Additional Psychological History / Comment(s): . Smoking Status: Former smoker Past Alcohol Use History: None Reported Additional Past Alcohol Use History / Comment(s): Pt started smoking in 1957 and quit in 1986. smoked 1ppd Past Drug Use History: None Reported - Past Family History Brother(s) Family Medical History: No Reported History Sister(s) Family Medical History: No Reported History Son(s) Family Medical History: No Reported History Father Family Medical History: Diabetes Mellitus, Myocardial Infarction ([place]), Vascular Disorder Additional Family Medical History / Comment(s): Father of a [place] at the age of 76 or 77yrs. He was an alcoholic. Mother Family Medical History: Deep Vein Thrombosis (DVT), Pulmonary Embolus Additional Family Medical History / Comment(s): Mother at 42 yrs of age of "blood clot" in the lung and it went to the heart. Medications and Allergies Home Medications Medication Instructions Recorded Confirmed Type Cyanocobalamin (Vitamin B-12) 1,000 mcg PO DAILY@0800 04/17/11/23/24 History [Vitamin B-12] Finasteride [Proscar] 5 mg PO DAILY@79912/01/18 11/23/24 History Tamsulosin HCl [Flomax] 0.4 mg PO BID@08,209911/18/21 11/23/24 History Cholecalciferol [Vitamin D3 (25 25 mcg PO DAILY@79903/19/22 11/23/24 History Mcg = 1000 Iu)] Acetaminophen/Diphenhydramine 2 tab PO HS@212912/11/23 11/23/24 History [Tylenol PM 500-25mg] Atorvastatin [Lipitor] 10 mg PO HS@209912/11/23 11/23/24 History Dextran/Hypromellose/Glycerin 2 drop BOTH EYES BID@0800,209912/11/23 11/23/24 History [Genteal Tears 0.1%-0.2%-0.3%] Donepezil [Aricept] 10 mg PO HS@209912/11/23 11/23/24 History Escitalopram [Lexapro] 10 mg PO DAILY@0812/11/23 11/23/24 History Famotidine [Pepcid] 40 mg PO DAILY@0800 12/11/23 11/23/24 History Ferrous Sulfate [Iron (65 MG 325 mg PO DAILY@79912/11/23 11/23/24 History Elemental)] L.acidoph,Paracasei, B.lactis 1 cap PO BID@0800,1700 12/11/23 11/23/24 History [Probiotic] Magnesium Hydroxide [Milk of 7,200 mg PO Q48H PRN 12/11/23 11/23/24 History Magnesia Concentrate] Na Phos,M-B/Na Phos,Di-Ba [Fleet 133 ml RECTAL DAILY PRN 12/11/23 11/23/24 History Adult] Ondansetron [Zofran] 4 mg PO Q6H PRN 12/11/23 11/23/24 History bisacodyL [Dulcolax] 10 mg RECTAL DAILY PRN 12/11/23 11/23/24 History glipiZIDE [Glucotrol] 10 mg PO BID@0800,1700 12/11/23 11/23/24 History Aspirin 81 mg PO DAILY@0800 01/05/24 11/23/24 History Dapagliflozin Propanediol [Farxiga] 5 mg PO DAILY@0800 01/05/24 11/23/24 History Glucerna Shake 120 ml PO TID@0800,1200,1700 01/05/24 11/23/24 History INSULIN ASPART (NovoLOG) [NovoLOG See Protocol SQ 01/05/24 11/23/24 History (formulary)] ACHS@07,11,1630,2130 ALPRAZolam [Xanax] 0.25 mg PO BID 11/23/24 11/23/24 History Acetaminophen Tab [Tylenol] 650 mg PO Q4H PRN 11/23/24 11/23/24 History Doxycycline Hyclate 100 mg PO BID@0800,1700 11/23/24 11/23/24 History HYDROcodone/APAP 5-325MG [[place] 1 tab PO Q4HR PRN 11/23/24 11/23/24 History 5-325] Sennosides [Senokot] 8.6 mg PO DAILY@0800 11/23/24 11/23/24 History fluorouraciL [Efudex] 1 applic TOPICAL BID@0800,1700 11/23/24 11/23/24 History Allergies Allergy/AdvReac Type Severity Reaction Status Date / Time No Known Allergies Allergy Verified 11/23/24 10:54 Physical Exam Vitals: Vital Signs Temp Pulse Resp BP Pulse Ox 11/27/24 07:00 97.4 F L 83 15 146/84 97 11/27/24 01:19 97.9 F 71 17 143/78 97 11/26/24 20:00 67 16 11/26/24 19:56 97.7 F 67 16 163/77 97 11/26/24 14:16 97.9 F 67 17 110/70 97 11/26/24 14:00 70 17 Intake and Output 11/26/24 11/27/24 11/27/24 22:59 06:59 14:59 Intake Total 118 Output Total 1000 Balance 118 -1000 Intake: Oral 118 Output: Urine 1000 Other: Voiding Method External Catheter External Catheter Patient is awake comfortable, no acute distress Examination of the heart S1 and S2 Examination of the lungs bilateral breath sounds are heard Abdomen is soft nontender Examination of lower extremities shows no significant edema [employer] exam grossly intact Results - Lab Results Most recent lab results Calcium 8.5 mg/dL (8.7-10.3) L 11/27/24 03:52 Magnesium 1.8 mg/dL (1.5-2.4) 11/27/24 03:52 11/27/24 03:52 11/27/24 03:52 Assessment and Plan Assessment: 1. Acute kidney injury, obstructive uropathy with ultrasound showing bilateral hydronephrosis. Aceves catheter will be placed. UA is suggestive of UTI. 2. UTI with urine culture growing Klebsiella pneumonia maintained on antibiotics 3. Chronic kidney disease NKF stage IV with baseline creatinine 1.6 to 2 mg/dL with serum creatinine at 2.3 on 10/15/2024. 4. History of coronary artery disease with coronary stents 5. Type 2 diabetes 6. History of CVA/TIA Plan: Consult urology May need to place Aceves catheter Repeat labs in a.m. Continue with IV antibiotics Agree with discontinuation of SGLT2 inhibitors given the repeated UTI Thank you for the consultation. We will continue to follow the patient with you during his hospitalization.
[2024-11-27 11:59] LABS: Glucose,Whole Blood 166 mg/dL (70-110)
--- NOTE | 2024-11-27 14:46 | P.GSCN ---
History of Present Illness Consult date: 11/27/24 Reason for Consult: Bilateral hydronephrosis History of present illness: The patient is an 89-year-old white male known to our service, He is patient of Dr Mohr, Has hx of bladder cancer. He underwent transurethral resection of bladder tumor in September 2020, revealing high-grade, noninvasive urothelial carcinoma. Has not had f/u with Dr Mohr. He underwent a renal ultrasound that showed evidence of bilateral hydronephrosis, of note ultrasound in February 2022 showed mild to moderate right hydronephrosis, moderate to severe left hydronep hrosis. Patient has small capacity bladder, has failed medical therapy. Previously attempt to manage this with a Aceves catheter was unsuccessful secondary to recurrent UTIs, at this point patient voids into a diaper indicated has not had a UTI for over a year. Denies any flank pain gross hematuria or dysuria. On ultrasound the hydronephrosis is stable. His creatinine is 2.2 which is at his baseline Review of Systems - Constitutional Denies chills, Denies fever - EENT Ears, nose, mouth and throat: Denies dysphagia - Cardiovascular Denies chest pain, Denies shortness of breath - Gastrointestinal Reports as per HPI - Genitourinary Denies dysuria, Denies hematuria Past Medical History Past Medical History: Coronary Artery Disease (CAD), Cancer, CVA/TIA, Diabetes Mellitus, Hyperlipidemia, Hypertension, Myocardial Infarction ([place]), Prostate Disorder, Sleep Apnea/CPAP/BIPAP, Vascular Disorder Additional Past Medical History / Comment(s): TIA in 2014, MICHAEL without device, CKD stage III, chronic low back pain, migraines in past, vertigo, balance issues, falls, BPH, benign colon polyp, diverticular disease, vascular disease with surgery-AAA repair and R leg bypass, skin cancer with removal, superficial bladder cancer Last Myocardial Infarction Date:: 04/17/17 History of Any Multi-Drug Resistant Organisms: ESBL Year Discovered:: 01/19/24 MDRO Source:: Urine Past Surgical History: Adenoidectomy, Heart Catheterization With Stent, Tonsillectomy Additional Past Surgical History / Comment(s): 12/07/18 endovascular repair/stent graft infra renal aorta, R leg bypass surgery after AAA repair at [facility], colonoscopy/polypectomy, basal cell cancer removed from forehead, bilateral cataract removals/lens implants, cystoscopy -biopsy for cancer Past Anesthesia/Blood Transfusion Reactions: Motion Sickness Additional Past Anesthesia/Blood Transfusion Reaction / Comm: . Date of Last Stent Placement:: 03/2017 Past Psychological History: Anxiety, Depression Additional Psychological History / Comment(s): . Smoking Status: Former smoker Past Alcohol Use History: None Reported Additional Past Alcohol Use History / Comment(s): Pt started smoking in 1957 and quit in 1986. smoked 1ppd Past Drug Use History: None Reported - Past Family History Brother(s) Family Medical History: No Reported History Sister(s) Family Medical History: No Reported History Son(s) Family Medical History: No Reported History Father Family Medical History: Diabetes Mellitus, Myocardial Infarction ([place]), Vascular Disorder Additional Family Medical History / Comment(s): Father of a [place] at the age of 76 or 77yrs. He was an alcoholic. Mother Family Medical History: Deep Vein Thrombosis (DVT), Pulmonary Embolus Additional Family Medical History / Comment(s): Mother at 42 yrs of age of "blood clot" in the lung and it went to the heart. Medications and Allergies Home Medications Medication Instructions Recorded Confirmed Type Cyanocobalamin (Vitamin B-12) 1,000 mcg PO DAILY@0800 04/17/11/23/24 History [Vitamin B-12] Finasteride [Proscar] 5 mg PO DAILY@0800 12/01/18 11/23/24 History Tamsulosin HCl [Flomax] 0.4 mg PO BID@799,209911/18/21 11/23/24 History Cholecalciferol [Vitamin D3 (25 25 mcg PO DAILY@79903/19/22 11/23/24 History Mcg = 1000 Iu)] Acetaminophen/Diphenhydramine 2 tab PO HS@212912/11/23 11/23/24 History [Tylenol PM 500-25mg] Atorvastatin [Lipitor] 10 mg PO HS@209912/11/23 11/23/24 History Dextran/Hypromellose/Glycerin 2 drop BOTH EYES BID@0800,209912/11/23 11/23/24 History [Genteal Tears 0.1%-0.2%-0.3%] Donepezil [Aricept] 10 mg PO HS@209912/11/23 11/23/24 History Escitalopram [Lexapro] 10 mg PO DAILY@0800 12/11/23 11/23/24 History Famotidine [Pepcid] 40 mg PO DAILY@0800 12/11/23 11/23/24 History Ferrous Sulfate [Iron (65 MG 325 mg PO DAILY@0800 12/11/23 11/23/24 History Elemental)] L.acidoph,Paracasei, B.lactis 1 cap PO BID@0800,1700 12/11/23 11/23/24 History [Probiotic] Magnesium Hydroxide [Milk of 7,200 mg PO Q48H PRN 12/11/23 11/23/24 History Magnesia Concentrate] Na Phos,M-B/Na Phos,Di-Ba [Fleet 133 ml RECTAL DAILY PRN 12/11/23 11/23/24 History Adult] Ondansetron [Zofran] 4 mg PO Q6H PRN 12/11/23 11/23/24 History bisacodyL [Dulcolax] 10 mg RECTAL DAILY PRN 12/11/23 11/23/24 History glipiZIDE [Glucotrol] 10 mg PO BID@0800,1700 12/11/23 11/23/24 History Aspirin 81 mg PO DAILY@0800 01/05/24 11/23/24 History Dapagliflozin Propanediol [Farxiga] 5 mg PO DAILY@0800 01/05/24 11/23/24 History Glucerna Shake 120 ml PO TID@0800,1200,1700 01/05/24 11/23/24 History INSULIN ASPART (NovoLOG) [NovoLOG See Protocol SQ 01/05/24 11/23/24 History (formulary)] ACHS@07,11,1630,2130 ALPRAZolam [Xanax] 0.25 mg PO BID 11/23/24 11/23/24 History Acetaminophen Tab [Tylenol] 650 mg PO Q4H PRN 11/23/24 11/23/24 History Doxycycline Hyclate 100 mg PO BID@0800,1700 11/23/24 11/23/24 History HYDROcodone/APAP 5-325MG [[place] 1 tab PO Q4HR PRN 11/23/24 11/23/24 History 5-325] Sennosides [Senokot] 8.6 mg PO DAILY@0800 11/23/24 11/23/24 History fluorouraciL [Efudex] 1 applic TOPICAL BID@0800,1700 11/23/24 11/23/24 History Allergies Allergy/AdvReac Type Severity Reaction Status Date / Time No Known Allergies Allergy Verified 11/23/24 10:54 Surgical - Exam Vital Signs Temp Pulse Resp BP Pulse Ox 98.6 F 73 17 133/81 99 11/23/24 08:13 11/23/24 08:13 11/23/24 08:13 11/23/24 08:13 11/23/24 08:13 - General no distress, no pain - Eyes normal ocular movement, no pale - ENT normal nares - Respiratory normal expansion, normal respiratory effort - Abdomen Abdomen: soft, no non tender, no distended - Psychiatric oriented to time, oriented to person Results - Labs 11/27/24 03:52 11/27/24 03:52 Abnormal Lab Results - Last 24 Hours (Table) 11/26/24 11/26/24 11/27/24 Range/Units 17:06 21:26 03:52 WBC 15.06 H (4.50-10.00) X 10*3/uL RBC 3.52 L (4.40-5.60) X 10*6/uL Hgb 10.8 L (13.0-17.0) g/dL Hct 35.0 L (39.6-50.0) % MCV 99.4 H (80.0-97.0) FL MCHC 30.9 L (32.0-37.0) g/dL Immature Gran # 0.13 H (0.00-0.04) X 10*3/uL Neutrophils # 11.51 H (1.80-7.70) X 10*3/uL Monocytes # 1.20 H (0.20-1.00) X 10*3/uL Carbon Dioxide (21.6-31.8) mmol/L BUN (9.0-27.0) mg/dL Creatinine (0.6-1.5) mg/dL Est GFR (CKD-EPI) (>=60) Glucose (70-110) mg/dL POC Glucose (mg/dL) 142 H 230 H (70-110) mg/dL Calcium (8.7-10.3) mg/dL Total Bilirubin (0.3-1.2) mg/dL AST (14-35) U/L ALT (10-49) U/L Total Protein (6.2-8.2) g/dL Albumin (3.8-4.9) g/dL Albumin/Globulin Ratio (1.60-3.17) Ratio 11/27/24 11/27/24 11/27/24 Range/Units 03:52 05:55 11:58 WBC (4.50-10.00) X 10*3/uL RBC (4.40-5.60) X 10*6/uL Hgb (13.0-17.0) g/dL Hct (39.6-50.0) % MCV (80.0-97.0) FL MCHC (32.0-37.0) g/dL Immature Gran # (0.00-0.04) X 10*3/uL Neutrophils # (1.80-7.70) X 10*3/uL Monocytes # (0.20-1.00) X 10*3/uL Carbon Dioxide 21.4 L (21.6-31.8) mmol/L BUN 32.2 H (9.0-27.0) mg/dL Creatinine 2.2 H (0.6-1.5) mg/dL Est GFR (CKD-EPI) 28 L (>=60) Glucose 112 H (70-110) mg/dL POC Glucose (mg/dL) 113 H 166 H (70-110) mg/dL Calcium 8.5 L (8.7-10.3) mg/dL Total Bilirubin <0.2 L (0.3-1.2) mg/dL AST 49 H (14-35) U/L ALT 57 H (10-49) U/L Total Protein 5.5 L (6.2-8.2) g/dL Albumin 2.3 L (3.8-4.9) g/dL Albumin/Globulin Ratio 0.72 L (1.60-3.17) Ratio Diabetes panel 11/27/24 Range/Units 03:52 Sodium 138 (135-145) mmol/L Potassium 4.2 (3.5-5.5) mmol/L Chloride 108 (96-109) mmol/L Carbon Dioxide 21.4 L (21.6-31.8) mmol/L BUN 32.2 H (9.0-27.0) mg/dL Creatinine 2.2 H (0.6-1.5) mg/dL Glucose 112 H (70-110) mg/dL Calcium 8.5 L (8.7-10.3) mg/dL AST 49 H (14-35) U/L ALT 57 H (10-49) U/L Alkaline Phosphatase 107 (41-126) U/L Total Protein 5.5 L (6.2-8.2) g/dL Albumin 2.3 L (3.8-4.9) g/dL Calcium panel 11/27/24 Range/Units 03:52 Calcium 8.5 L (8.7-10.3) mg/dL Albumin 2.3 L (3.8-4.9) g/dL Pituitary panel 11/27/24 Range/Units 03:52 Sodium 138 (135-145) mmol/L Potassium 4.2 (3.5-5.5) mmol/L Chloride 108 (96-109) mmol/L Carbon Dioxide 21.4 L (21.6-31.8) mmol/L BUN 32.2 H (9.0-27.0) mg/dL Creatinine 2.2 H (0.6-1.5) mg/dL Glucose 112 H (70-110) mg/dL Calcium 8.5 L (8.7-10.3) mg/dL Adrenal panel 11/27/24 Range/Units 03:52 Sodium 138 (135-145) mmol/L Potassium 4.2 (3.5-5.5) mmol/L Chloride 108 (96-109) mmol/L Carbon Dioxide 21.4 L (21.6-31.8) mmol/L BUN 32.2 H (9.0-27.0) mg/dL Creatinine 2.2 H (0.6-1.5) mg/dL Glucose 112 H (70-110) mg/dL Calcium 8.5 L (8.7-10.3) mg/dL Total Bilirubin <0.2 L (0.3-1.2) mg/dL AST 49 H (14-35) U/L ALT 57 H (10-49) U/L Alkaline Phosphatase 107 (41-126) U/L Total Protein 5.5 L (6.2-8.2) g/dL Albumin 2.3 L (3.8-4.9) g/dL Assessment and Plan Assessment: 89 yo male with hx of chronic hydro, his creatinine is at baseline. His hydron ephrosis most likely secondary to neurogenic high-pressure bladder and not secondary to an obstructive etiology . Given patient's age no further intervention is needed from urology standpoint for his low capacity bladder, at this point it's being managed with diapers. As for his bladder cancer he should follow-up with Dr. Mohr as an outpatient for further evaluation.
--- NOTE | 2024-11-27 14:57 | P.PN ---
Subjective Progress Note Date: 11/27/24 Principal diagnosis: Reason for follow-up is UTI/leukocytosis Patient is a 89-year-old male with past medical history significant for Coronary Artery Disease (CAD), bladder cancer, CVA/TIA, Diabetes Mellitus, Hyperlipidemia, Hypertension, Myocardial Infarction (OR), Prostate Disorder, Sleep Apnea/CPAP/BIPAP, Vascular Disorder also with recurrent UTIs has been brought into the hospital for evaluation of decreased oral intake, mental status changes positive UA concerning for symptomatic UTI failing outpatient oral tetracycline therapy. On today's evaluation that is 11/27/2024, Patient is afebrile this morning patient denies having any chest pain shortness of breath or cough, the patient is currently on room air, patient denies any abdominal pain no diarrhea no nausea no vomiting mention feeling better. Patient white count is 15.06, creatinine is 2.2 ultrasound shows evidence of hydronephrosis Objective - Vital Signs Vital signs: Vital Signs Temp 97.4 F L 11/27/24 07:00 Pulse 83 11/27/24 07:00 Resp 15 11/27/24 07:00 BP 146/84 11/27/24 07:00 Pulse Ox 97 11/27/24 07:00 FiO2 Intake & Output 11/26/24 11/27/24 11/27/24 18:59 06:59 18:59 Intake Total 236 Output Total 876 1000 Balance -640 -1000 Intake: Oral 236 Output: Urine 875 1000 Stool 1 Other: Voiding Method External Catheter External Catheter External Catheter - Exam GENERAL DESCRIPTION: An elderly male lying in bed in no distress RESPIRATORY SYSTEM: Unlabored breathing , decreased breath sounds at bases HEART: S1 S2 regular rate and rhythm , ABDOMEN: Soft , no tenderness EXTREMITIES: No edema feet - Labs CBC & Chem 7: 11/27/24 03:52 11/27/24 03:52 Labs: Abnormal Lab Results - Last 24 Hours (Table) 11/26/24 11/26/24 11/26/24 Range/Units 05:02 12:02 17:06 WBC (4.50-10.00) X 10*3/uL RBC (4.40-5.60) X 10*6/uL Hgb (13.0-17.0) g/dL Hct (39.6-50.0) % MCV (80.0-97.0) FL MCHC (32.0-37.0) g/dL Immature Gran # (0.00-0.04) X 10*3/uL Neutrophils # (1.80-7.70) X 10*3/uL Monocytes # (0.20-1.00) X 10*3/uL Carbon Dioxide 21.0 L (21.6-31.8) mmol/L BUN 37.0 H (9.0-27.0) mg/dL Creatinine 2.4 H (0.6-1.5) mg/dL Est GFR (CKD-EPI) 25 L (>=60) Glucose 129 H (70-110) mg/dL POC Glucose (mg/dL) 242 H 142 H (70-110) mg/dL Calcium (8.7-10.3) mg/dL Total Bilirubin (0.3-1.2) mg/dL AST (14-35) U/L ALT (10-49) U/L Total Protein (6.2-8.2) g/dL Albumin (3.8-4.9) g/dL Albumin/Globulin Ratio (1.60-3.17) Ratio 11/26/24 11/27/24 11/27/24 Range/Units 21:26 03:52 03:52 WBC 15.06 H (4.50-10.00) X 10*3/uL RBC 3.52 L (4.40-5.60) X 10*6/uL Hgb 10.8 L (13.0-17.0) g/dL Hct 35.0 L (39.6-50.0) % MCV 99.4 H (80.0-97.0) FL MCHC 30.9 L (32.0-37.0) g/dL Immature Gran # 0.13 H (0.00-0.04) X 10*3/uL Neutrophils # 11.51 H (1.80-7.70) X 10*3/uL Monocytes # 1.20 H (0.20-1.00) X 10*3/uL Carbon Dioxide 21.4 L (21.6-31.8) mmol/L BUN 32.2 H (9.0-27.0) mg/dL Creatinine 2.2 H (0.6-1.5) mg/dL Est GFR (CKD-EPI) 28 L (>=60) Glucose 112 H (70-110) mg/dL POC Glucose (mg/dL) 230 H (70-110) mg/dL Calcium 8.5 L (8.7-10.3) mg/dL Total Bilirubin <0.2 L (0.3-1.2) mg/dL AST 49 H (14-35) U/L ALT 57 H (10-49) U/L Total Protein 5.5 L (6.2-8.2) g/dL Albumin 2.3 L (3.8-4.9) g/dL Albumin/Globulin Ratio 0.72 L (1.60-3.17) Ratio 11/27/24 Range/Units 05:55 WBC (4.50-10.00) X 10*3/uL RBC (4.40-5.60) X 10*6/uL Hgb (13.0-17.0) g/dL Hct (39.6-50.0) % MCV (80.0-97.0) FL MCHC (32.0-37.0) g/dL Immature Gran # (0.00-0.04) X 10*3/uL Neutrophils # (1.80-7.70) X 10*3/uL Monocytes # (0.20-1.00) X 10*3/uL Carbon Dioxide (21.6-31.8) mmol/L BUN (9.0-27.0) mg/dL Creatinine (0.6-1.5) mg/dL Est GFR (CKD-EPI) (>=60) Glucose (70-110) mg/dL POC Glucose (mg/dL) 113 H (70-110) mg/dL Calcium (8.7-10.3) mg/dL Total Bilirubin (0.3-1.2) mg/dL AST (14-35) U/L ALT (10-49) U/L Total Protein (6.2-8.2) g/dL Albumin (3.8-4.9) g/dL Albumin/Globulin Ratio (1.60-3.17) Ratio Assessment and Plan (1) Failure of outpatient treatment Current Visit: Yes Status: Acute Code(s): Z78.9 - OTHER SPECIFIED HEALTH STATUS SNOMED Code(s): 792056726 (2) UTI (urinary tract infection) Current Visit: Yes Status: Acute Code(s): N39.0 - URINARY TRACT INFECTION, SITE NOT SPECIFIED SNOMED Code(s): 34432513 (3) Leukocytosis Current Visit: No Status: Acute Code(s): D72.829 - ELEVATED WHITE BLOOD CELL COUNT, UNSPECIFIED SNOMED Code(s): 312799839 Plan: 1patient presented to hospital with weakness mental status change and not feeling well urinary symptoms did have elevated white count positive UA concerning for symptomatic UTI likely from enteric gram-negative pathogen with recent urine culture positive for Klebsiella failing outpatient oral tetracycline therapy with etiology of his recurrent UTI more likely due to incomplete emptying of the bladder 2 ultrasound of the kidney did not show evidence of hydronephrosis has been eval by urology. 3patient urine has been finalized with Klebsiella sensitive to Rocephin 4patient to continue with IV Rocephin while inpatient while stable for discharge from other fashion consultant selling will transition to oral Ceftin Dictation was produced using [employer] dictation software. please excuse any grammatical, word or spelling errors. Time with Patient: Less than 30
[2024-11-27 17:09] LABS: Glucose,Whole Blood 214 mg/dL (70-110)
[2024-11-27 20:37] LABS: Glucose,Whole Blood 129 mg/dL (70-110)
--- NOTE | 2024-11-28 05:36 | P.PN ---
Subjective Progress Note Date: 11/27/24 89-year-old male was sent in from [facility] for decreased p.o. intake and increased generalized weakness from his baseline. I cannot get any kind of history from the patient patient appears to have dementia mostly bedbound at the retirement. Apparently patient is being treated for UTI although his admission medication does not reflect that he is on any antibiotics at this time his urine is significantly abnormal patient does not have any Aceves catheter at this time does have a condom catheter at this time. Patient has significantly elevated urine WBC. Patient has elevated white count of 18,600 although does not have any fevers. Patient has elevated creatinine of 2.49 which appears to be his baseline. 11/25/2024 Patient is seen in follow-up and extremely lethargic with generalized weakness although arousable but fatigues easily. Patient reports he does not feel well today and is lethargic. Patient per nursing staff with history of dementia mostly bedbound lives at a retirement with plans on returning there on discharge. Patient is maintained on IV antibiotics in the form of ceftriaxone and preliminary culture showing gram-negative bacilli. Creatinine is slightly worse at 2.5 and sodium 136. White count is trending down at 16.5 and hemoglobin is stable. 11/26/2024 Patient is seen in follow-up today with infectious disease following. Patient white count elevated today and recommending an ultrasound which is pending at this time. Patient is continued on ceftriaxone and will continue. Awaiting urine culture and clearance of white count. Patient does have chronic kidney disease although kidney functions are worsening, will consult nephrology as well as urology and appreciate input and recommendations. Follow-up on repeat labs in the a.m. 11/27/2024 Patient is seen in follow-up today being followed by multiple consultations. Patient white count remains elevated although slightly improved with infectious disease following maintained on ceftriaxone. Urology and nephrology consulted for bilateral hydronephrosis for further evaluation. Patient to continue with current regimen for now with no plans of surgical intervention. Follow-up on repeat labs and monitor kidney functions closely. Patient reports to feeling well and is more awake today. Plans on returning to [facility] where he resides Review of systems: Constitutional: reports of fatigue, fever, or chills Cardiovascular: No reports of chest pain or palpitations Respiratory: No reports of shortness of breath or cough GI: No reports of nausea, vomiting, or diarrhea, reports not much of an appetite with no further abdominal pain : No reports of dysuria or retention Neurovascular: reports of weakness and does not walk much All medications have been reviewed PHYSICAL EXAMINATION: GENERAL: Patient is lethargic although arousable, more awake today, unable to assess orientation, patient's baseline is alert and oriented to self, well- developed, elderly appearing, thin built, ill-appearing HEENT: Pupils are round and equally reacting to light. EOMI. No scleral icterus. No conjunctival pallor. Normocephalic, atraumatic. No pharyngeal erythema. No thyromegaly. CARDIOVASCULAR: S1 and S2 present. No murmurs, rubs, or gallops. PULMONARY: Diminished breath sounds bilaterally otherwise chest is clear to auscultation, no wheezing or crackles. ABDOMEN: Soft, mildly tender on palpation, nondistended, normoactive bowel sounds. No palpable organomegaly. MUSCULOSKELETAL: No joint swelling or deformity. EXTREMITIES: No cyanosis, clubbing, or pedal edema. NEUROLOGICAL: Gross neurological examination did not reveal any focal deficits. Significant generalized weakness, bedbound SKIN: No rashes. Assessment: -Sepsis secondary to urinary tract infection, present on admission with cultures finalized as Klebsiella pneumonia. Patient had history of Klebsiella recently in the past -Leukocytosis, secondary to above, improving trending down -History of coronary disease with stents in the past -Bilateral hydronephrosis noted on ultrasound, chronic per urology with no plans of intervention at this time -Sleep apnea -Type 2 diabetes mellitus, uncontrolled with hyperglycemia -Hyperlipidemia -Hypertension -Peripheral vascular disease -CVA TIA in the past -Dementia -Generalized deconditioning, poor functional status mostly bedbound supportive care -History of bladder cancer, follows with urology outpatient -GI prophylaxis -DVT prophylaxis -No code Plan: Patient is continued on IV antibiotics with infectious disease following and urine culture showing Klebsiella. Continued on ceftriaxone although having worsening white count, ultrasound of the kidneys showing bilateral hydronephrosis. Nephrology and urology consulted and pending. Patient also takes Farxiga although having recurrent UTIs recommend discontinuing Farxiga and consider other alternatives per cardiology Patient resides at [facility] and will return there once stabilized currently awaiting urine culture to finalize White count is elevated and will follow-up on repeat labs. Consult to urology and nephrology pending and appreciate input and recommendations as patient did have an ultrasound with concerns of hydronephrosis Possible discharge planning in the next 24 to 48 hours. Once cleared by consultations Due to multiple complex medical issues, overall prognosis is guarded The impression and plan of care has been dictated by Carlene Gallegos, Nurse Practitioner as directed. Dr. Bon MD I have performed a history and examination and MDM of this patient, discussed the same with the dictator, and agree with the dictator's assessment and plan as written ,documented as a scribe. Based on total visit time, I have performed more than 50% of the visit. Objective - Vital Signs Vital signs: Vital Signs Temp 97.4 F L 11/27/24 07:00 Pulse 83 11/27/24 07:00 Resp 15 11/27/24 07:00 BP 146/84 11/27/24 07:00 Pulse Ox 97 11/27/24 07:00 FiO2 Intake & Output 11/26/24 11/27/24 11/27/24 18:59 06:59 18:59 Intake Total 236 Output Total 876 1000 Balance -640 -1000 Intake: Oral 236 Output: Urine 875 1000 Stool 1 Other: Voiding Method External Catheter External Catheter - Labs CBC & Chem 7: 11/27/24 03:52 11/27/24 03:52 Labs: Abnormal Lab Results - Last 24 Hours (Table) 11/26/24 11/26/24 11/26/24 Range/Units 05:02 12:02 17:06 WBC (4.50-10.00) X 10*3/uL RBC (4.40-5.60) X 10*6/uL Hgb (13.0-17.0) g/dL Hct (39.6-50.0) % MCV (80.0-97.0) FL MCHC (32.0-37.0) g/dL Immature Gran # (0.00-0.04) X 10*3/uL Neutrophils # (1.80-7.70) X 10*3/uL Monocytes # (0.20-1.00) X 10*3/uL Carbon Dioxide 21.0 L (21.6-31.8) mmol/L BUN 37.0 H (9.0-27.0) mg/dL Creatinine 2.4 H (0.6-1.5) mg/dL Est GFR (CKD-EPI) 25 L (>=60) Glucose 129 H (70-110) mg/dL POC Glucose (mg/dL) 242 H 142 H (70-110) mg/dL Calcium (8.7-10.3) mg/dL Total Bilirubin (0.3-1.2) mg/dL AST (14-35) U/L ALT (10-49) U/L Total Protein (6.2-8.2) g/dL Albumin (3.8-4.9) g/dL Albumin/Globulin Ratio (1.60-3.17) Ratio 11/26/24 11/27/24 11/27/24 Range/Units 21:26 03:52 03:52 WBC 15.06 H (4.50-10.00) X 10*3/uL RBC 3.52 L (4.40-5.60) X 10*6/uL Hgb 10.8 L (13.0-17.0) g/dL Hct 35.0 L (39.6-50.0) % MCV 99.4 H (80.0-97.0) FL MCHC 30.9 L (32.0-37.0) g/dL Immature Gran # 0.13 H (0.00-0.04) X 10*3/uL Neutrophils # 11.51 H (1.80-7.70) X 10*3/uL Monocytes # 1.20 H (0.20-1.00) X 10*3/uL Carbon Dioxide 21.4 L (21.6-31.8) mmol/L BUN 32.2 H (9.0-27.0) mg/dL Creatinine 2.2 H (0.6-1.5) mg/dL Est GFR (CKD-EPI) 28 L (>=60) Glucose 112 H (70-110) mg/dL POC Glucose (mg/dL) 230 H (70-110) mg/dL Calcium 8.5 L (8.7-10.3) mg/dL Total Bilirubin <0.2 L (0.3-1.2) mg/dL AST 49 H (14-35) U/L ALT 57 H (10-49) U/L Total Protein 5.5 L (6.2-8.2) g/dL Albumin 2.3 L (3.8-4.9) g/dL Albumin/Globulin Ratio 0.72 L (1.60-3.17) Ratio 11/27/24 Range/Units 05:55 WBC (4.50-10.00) X 10*3/uL RBC (4.40-5.60) X 10*6/uL Hgb (13.0-17.0) g/dL Hct (39.6-50.0) % MCV (80.0-97.0) FL MCHC (32.0-37.0) g/dL Immature Gran # (0.00-0.04) X 10*3/uL Neutrophils # (1.80-7.70) X 10*3/uL Monocytes # (0.20-1.00) X 10*3/uL Carbon Dioxide (21.6-31.8) mmol/L BUN (9.0-27.0) mg/dL Creatinine (0.6-1.5) mg/dL Est GFR (CKD-EPI) (>=60) Glucose (70-110) mg/dL POC Glucose (mg/dL) 113 H (70-110) mg/dL Calcium (8.7-10.3) mg/dL Total Bilirubin (0.3-1.2) mg/dL AST (14-35) U/L ALT (10-49) U/L Total Protein (6.2-8.2) g/dL Albumin (3.8-4.9) g/dL Albumin/Globulin Ratio (1.60-3.17) Ratio
[2024-11-28 06:04] LABS: Glucose,Whole Blood 153 mg/dL (70-110)
[2024-11-28 08:29] LABS: Basophils # (A) 0.07 X 10*3/uL (0.00-0.10); Basophils % (A) 0.5 %; Eosinophils # (A) 0.18 X 10*3/uL (0.04-0.35); Eosinophils % (A) 1.2 %; HCT 35.9 % (39.6-50.0); HGB 11.2 g/dL (13.0-17.0); Lymphocytes # (A) 2.32 X 10*3/uL (0.90-5.00); Lymphocytes % (A) 16.1 %; MCH 30.9 pg (27.0-32.0); MCHC 31.2 g/dL (32.0-37.0); MCV 98.9 FL (80.0-97.0); Mean Platelet Volume 9.8 FL (9.5-12.2); Monocytes # (A) 1.37 X 10*3/uL (0.20-1.00); Monocytes % (A) 9.5 %; NRBC Per 100 WBC 0 X 10*3/uL (0.00-0.01); Neutrophils # (A) 10.32 X 10*3/uL (1.80-7.70); Neutrophils % (A) 71.5 %; Platelet Count 411 X 10*3/uL (140-440); RBC 3.63 X 10*6/uL (4.40-5.60); RDW 12.8 % (11.5-14.5); WBC 14.43 X 10*3/uL (4.50-10.00)
[2024-11-28 11:53] LABS: BUN/Creat Ratio 13.76 Ratio (12.00-20.00); Blood Urea Nitrogen 28.9 mg/dL (9.0-27.0); Calcium 8.6 mg/dL (8.7-10.3); Carbon Dioxide 19.8 mmol/L (21.6-31.8); Chloride 108 mmol/L (96-109); Glucose 151 mg/dL (70-110); Potassium 4.4 mmol/L (3.5-5.5); Sodium 137 mmol/L (135-145)
[2024-11-28 12:13] LABS: Glucose,Whole Blood 234 mg/dL (70-110)
--- NOTE | 2024-11-28 14:58 | P.DS ---
Providers Date of admission: 11/24/24 12:17 Expected date of discharge: 11/28/24 Attending physician: Guerrero Hung MD Consults: 11/25/24 11:52 Consult Physician Urgent Consulting Provider: Nathaniel Hernández Consult Reason/Comments: uti, gram neg, previous klebsiella uti Do you want consulting provider notified?: Yes 11/26/24 22:51 Consult Physician Routine Consulting Provider: Bryce Dean Consult Reason/Comments: b/l hydronephrosis Do you want consulting provider notified?: Yes Consult Physician Urgent Consulting Provider: Dariel Delgado Consult Reason/Comments: sun, ckd, b/l hydronephrosis Do you want consulting provider notified?: Yes Primary care physician: Chinedu Gan Hospital Course: Final diagnosis -Sepsis secondary to urinary tract infection, present on admission with cultures finalized as Klebsiella pneumonia. Patient had history of Klebsiella recently in the past -Leukocytosis, secondary to above, improving trending down -History of coronary disease with stents in the past -Bilateral hydronephrosis noted on ultrasound, chronic per urology with no plans of intervention at this time -Sleep apnea -Type 2 diabetes mellitus, uncontrolled with hyperglycemia -Hyperlipidemia -Hypertension -Peripheral vascular disease -CVA TIA in the past -Dementia -Generalized deconditioning, poor functional status mostly bedbound supportive care -History of bladder cancer, follows with urology outpatient -GI prophylaxis -DVT prophylaxis -No code Discharge disposition Patient is being discharged in a stable condition with guarded prognosis to [facility]. Patient will follow-up with Dr. Gan in the outpatient setting upon discharge. Patient is to continue with oral Ceftin 500 mg twice daily for 10 days and outpatient follow-up with nephrology as well as urology. Total time taken is greater than 35 minutes. Hospital course This is a 89-year-old male who was recently admitted with sepsis secondary to urinary tract infection and cultures finalized showing Klebsiella along with leukocytosis and being closely monitored. Infectious disease following maintained on ceftriaxone although continuing to have elevated white count did undergo repeat ultrasound of the kidney showing bilateral hydronephrosis. Patient was evaluated by nephrology as well as urology and known to have chronic hydronephrosis. Patient to follow-up with urology Dr. Mohr outpatient. Farxiga has been discontinued and recommend to continue holding as patient has recurrent UTIs. Continue with sliding scale and Accu-Cheks before meals and at bedtime and continue holding diabetic agents at this time. Patient has been cleared by consultations and will be returning to [facility] where he resides. Please refer to other consultation notes for further HPI. Currently no reports of chest pain, shortness of breath, or palpitations. Patient is afebrile. No reports of nausea or vomiting and patient is tolerating diet. Patient will be going to [facility] today. Guarded prognosis and high risk for readmissions given significant comorbidities Physical exam: Gen: This is a 89-year-old male who is awake, alert and oriented x 1-2, baseline, well-developed, elderly appearing, thin built HEENT: Head is atraumatic, normocephalic. Pupils equal, round. Sclerae is anicteric. NECK: Supple. No JVD. No lymphadenopathy. No thyromegaly. LUNGS: Diminished breath sounds bilaterally otherwise clear to auscultation. No wheezes or rhonchi. No intercostal retractions. HEART: S1, S2 are muffled ABDOMEN: Soft. Bowel sounds are present. No masses. No tenderness. EXTREMITIES: No pedal edema. No calf tenderness. NEUROLOGICAL: Patient is awake, alert and oriented x 1-2, baseline. Cranial nerves 2 through 12 are grossly intact. Diffusely weak, mostly bedbound Please refer to medication reconciliation sheet for a list of medications. The impression and plan of care has been dictated by Carlene Gallegos, Nurse Practitioner as directed. Dr. Crockett, I have performed a history and examination and MDM of this patient, discussed the same with the dictator, and agree with the dictator's assessment and plan as written ,documented as a scribe. Based on total visit time, I have performed more than 50% of the visit. Patient Condition at Discharge: Stable Plan - Discharge Summary Discharge Rx Participant: Yes New Discharge Prescriptions: New Folic Acid 1 mg PO DAILY tab Heparin Sodium,Porcine (1 ml) [Heparin Sodium] 5,000 unit SQ Q12HR each Multivitamins, Thera [Multivitamin (formulary)] 1 each PO DAILY tab Thiamine [Vitamin B-1] 100 mg PO DAILY tab cefuroxime axetiL [Ceftin] 500 mg PO BID 10 Days #20 tab Continue Cyanocobalamin (Vitamin B-12) [Vitamin B-12] 1,000 mcg PO DAILY@0800 Tamsulosin HCl [Flomax] 0.4 mg PO BID@0800,2100 Cholecalciferol [Vitamin D3 (25 Mcg = 1000 Iu)] 25 mcg PO DAILY@0800 L.acidoph,Paracasei, B.lactis [Probiotic] 1 cap PO BID@0800,1700 Magnesium Hydroxide [Milk of Magnesia Concentrate] 7,200 mg PO Q48H PRN PRN Reason: Constipation Dextran/Hypromellose/Glycerin [Genteal Tears 0.1%-0.2%-0.3%] 2 drop BOTH EYES BID@0800,2100 Na Phos,M-B/Na Phos,Di-Ba [Fleet Adult] 133 ml RECTAL DAILY PRN PRN Reason: Constipation Escitalopram [Lexapro] 10 mg PO DAILY@0800 bisacodyL [Dulcolax] 10 mg RECTAL DAILY PRN PRN Reason: Constipation Donepezil [Aricept] 10 mg PO HS@2100 Acetaminophen/Diphenhydramine [Tylenol PM 500-25mg] 2 tab PO HS@2130 Acetaminophen Tab [Tylenol] 650 mg PO Q4H PRN PRN Reason: General Discomfort fluorouraciL [Efudex] 1 applic TOPICAL BID@0800,1700 Ondansetron [Zofran] 4 mg PO Q6H PRN PRN Reason: Nausea And Vomiting Ferrous Sulfate [Iron (65 MG Elemental)] 325 mg PO DAILY@0800 Famotidine [Pepcid] 40 mg PO DAILY@0800 Atorvastatin [Lipitor] 10 mg PO HS@2100 INSULIN ASPART (NovoLOG) [NovoLOG (formulary)] See Protocol SQ ACHS@07,11,1630,2130 Glucerna Shake 120 ml PO TID@0800,1200,1700 Aspirin 81 mg PO DAILY@0800 Sennosides [Senokot] 8.6 mg PO DAILY@0800 Discontinued Finasteride [Proscar] 5 mg PO DAILY@0800 Dapagliflozin Propanediol [Farxiga] 5 mg PO DAILY@0800 Doxycycline Hyclate 100 mg PO BID@0800,1700 glipiZIDE [Glucotrol] 10 mg PO BID@0800,1700 HYDROcodone/APAP 5-325MG [Cope 5-325] 1 tab PO Q4HR PRN PRN Reason: Pain ALPRAZolam [Xanax] 0.25 mg PO BID Discharge Medication List Cyanocobalamin (Vitamin B-12) [Vitamin B-12] 1,000 mcg PO DAILY@0800 04/17/17 [History] Tamsulosin HCl [Flomax] 0.4 mg PO BID@0800,2100 11/18/21 [History] Cholecalciferol [Vitamin D3 (25 Mcg = 1000 Iu)] 25 mcg PO DAILY@0800 03/19/22 [History] Acetaminophen/Diphenhydramine [Tylenol PM 500-25mg] 2 tab PO HS@212912/11/23 [History] Atorvastatin [Lipitor] 10 mg PO HS@209912/11/23 [History] Dextran/Hypromellose/Glycerin [Genteal Tears 0.1%-0.2%-0.3%] 2 drop BOTH EYES BID@0800,209912/11/23 [History] Donepezil [Aricept] 10 mg PO HS@209912/11/23 [History] Escitalopram [Lexapro] 10 mg PO DAILY@0812/11/23 [History] Famotidine [Pepcid] 40 mg PO DAILY@0812/11/23 [History] Ferrous Sulfate [Iron (65 MG Elemental)] 325 mg PO DAILY@0812/11/23 [History] L.acidoph,Paracasei, B.lactis [Probiotic] 1 cap PO BID@0800,1700 12/11/23 [History] Magnesium Hydroxide [Milk of Magnesia Concentrate] 7,200 mg PO Q48H PRN 12/11/23 [History] Na Phos,M-B/Na Phos,Di-Ba [Fleet Adult] 133 ml RECTAL DAILY PRN 12/11/23 [History] Ondansetron [Zofran] 4 mg PO Q6H PRN 12/11/23 [History] bisacodyL [Dulcolax] 10 mg RECTAL DAILY PRN 12/11/23 [History] Aspirin 81 mg PO DAILY@0800 01/05/24 [History] Glucerna Shake 120 ml PO TID@0800,1200,1700 01/05/24 [History] INSULIN ASPART (NovoLOG) [NovoLOG (formulary)] See Protocol SQ ACHS@07,11,1630,2130 01/05/24 [History] Acetaminophen Tab [Tylenol] 650 mg PO Q4H PRN 11/23/24 [History] Sennosides [Senokot] 8.6 mg PO DAILY@0800 11/23/24 [History] fluorouraciL [Efudex] 1 applic TOPICAL BID@0800,1700 11/23/24 [History] Folic Acid 1 mg PO DAILY tab 11/28/24 [Rx] Heparin Sodium,Porcine (1 ml) [Heparin Sodium] 5,000 unit SQ Q12HR each 11/28/24 [Rx] Multivitamins, Thera [Multivitamin (formulary)] 1 each PO DAILY tab 11/28/24 [Rx] Thiamine [Vitamin B-1] 100 mg PO DAILY tab 11/28/24 [Rx] cefuroxime axetiL [Ceftin] 500 mg PO BID 10 Days #20 tab 11/28/24 [Rx] Follow up Appointment(s)/Referral(s): Chinedu Gan MD [Primary Care Provider] - 1-2 days Bridger Mohr MD [STAFF PHYSICIAN] - 1 Week Sofie Peralta MD [STAFF PHYSICIAN] - 1 Week Activity/Diet/Wound Care/Special Instructions: Patient is going to [employer] Activity as tolerated Patient to continue with Ceftin 500 mg twice daily for 10 days per ID recommendations Follow-up with urology outpatient Follow-up with nephrology outpatient Repeat CBC, BMP, magnesium in 2 to 3 days to monitor white count and also kidney functions Continue Accu-Cheks before meals and at bedtime and sliding scale Farxiga has been discontinued NovoLog sliding scale 0-150 equals 0 units 151-200 equals 2 units 201-250 equals 4 units 251-300 equals 6 units 301-350 equals 8 units 351-400 equals 10 units Please notify provider if blood sugar is 400 or above Recommend holding other diabetic agents Discharge Disposition: TRANSFER TO SNF/ECF
[2024-11-28 15:12] VITALS: BP 141/68; PULSE 77; RESP 18; TEMP 97.4
--- NOTE | 2024-11-28 22:38 | P.PN ---
Subjective Patient is seen for follow-up for acute kidney injury. Serum creatinine improved to 2.1. Patient is sleeping. He is arousable but does not communicate much. Objective - Vital Signs Vital signs: Vital Signs Temp 97.4 F L 11/28/24 15:12 Pulse 77 11/28/24 15:12 Resp 18 11/28/24 15:12 BP 141/68 11/28/24 15:12 Pulse Ox 97 11/28/24 15:12 FiO2 Intake & Output 11/28/24 11/28/24 11/29/24 06:59 18:59 06:59 Intake Total 118 Output Total 1350 701 Balance -1350 -583 Intake: Oral 118 Output: Urine 1350 700 Stool 1 Other: Voiding Method External Catheter External Catheter - Exam Patient is sleeping but arousable. He does not communicate much. Examination of the heart S1 and S2 Examination of the lungs bilateral breath sounds are heard Abdomen is soft nontender Examination of the lower extremity shows no significant edema - Labs CBC & Chem 7: 11/28/24 06:22 11/28/24 06:22 Labs: Abnormal Lab Results - Last 24 Hours (Table) 11/28/24 11/28/24 11/28/24 Range/Units 06:03 06:22 06:22 WBC 14.43 H (4.50-10.00) X 10*3/uL RBC 3.63 L (4.40-5.60) X 10*6/uL Hgb 11.2 L (13.0-17.0) g/dL Hct 35.9 L (39.6-50.0) % MCV 98.9 H (80.0-97.0) FL MCHC 31.2 L (32.0-37.0) g/dL Immature Gran # 0.17 H (0.00-0.04) X 10*3/uL Neutrophils # 10.32 H (1.80-7.70) X 10*3/uL Monocytes # 1.37 H (0.20-1.00) X 10*3/uL Carbon Dioxide 19.8 L (21.6-31.8) mmol/L BUN 28.9 H (9.0-27.0) mg/dL Creatinine 2.1 H (0.6-1.5) mg/dL Est GFR (CKD-EPI) 30 L (>=60) Glucose 151 H (70-110) mg/dL POC Glucose (mg/dL) 153 H (70-110) mg/dL Calcium 8.6 L (8.7-10.3) mg/dL 11/28/24 Range/Units 12:12 WBC (4.50-10.00) X 10*3/uL RBC (4.40-5.60) X 10*6/uL Hgb (13.0-17.0) g/dL Hct (39.6-50.0) % MCV (80.0-97.0) FL MCHC (32.0-37.0) g/dL Immature Gran # (0.00-0.04) X 10*3/uL Neutrophils # (1.80-7.70) X 10*3/uL Monocytes # (0.20-1.00) X 10*3/uL Carbon Dioxide (21.6-31.8) mmol/L BUN (9.0-27.0) mg/dL Creatinine (0.6-1.5) mg/dL Est GFR (CKD-EPI) (>=60) Glucose (70-110) mg/dL POC Glucose (mg/dL) 234 H (70-110) mg/dL Calcium (8.7-10.3) mg/dL Assessment and Plan Assessment: 1. Acute kidney injury, obstructive uropathy with ultrasound showing bilateral hydronephrosis. Possible component of ATN as well as renal function has improved without Aceves catheter placement. No plans for intervention from urology standpoint. UA is suggestive of UTI. 2. UTI with urine culture growing Klebsiella pneumonia maintained on antibiotics 3. Chronic kidney disease NKF stage IV with baseline creatinine 1.6 to 2 mg/dL with serum creatinine at 2.3 on 10/15/2024. 4. History of coronary artery disease with coronary stents 5. Type 2 diabetes 6. History of CVA/TIA 7. Bladder cancer being followed by urology Plan: Follow-up with urology as outpatient if discharged today.
--- NOTE | 2024-11-29 13:19 | CDI ---
Documentation Clarification Form Date: 11/29/2024 12:59:43 PM From: Bethany Kent Admit Date: 11/24/2024 12:17:00 PM Patient Name: Jasmina Butler Visit Number: [id number] Discharge Date: 11/28/2024 04:54:00 PM ATTENTION: The Clinical Documentation Specialists (CDI) and [facility] Coding Staff appreciate your assistance in clarifying documentation. Please respond to the clarification below the line at the bottom and electronically sign. The CDI & [facility] Coding staff will review the response and follow-up if needed. Please note: Queries are made part of the Legal Health Record. If you have any questions, please contact the author of this message via ITS. Doctor/Provider: Stacie Acevedo Your patient has the documented symptom of Altered Mental Status in the ED note 11/23/24 and subsequent documentation. Additional clarification regarding the etiology/cause of this symptom is requested. History/Risk Factors: patient has a history of recurrent UTIs, CAD with stents, sleep apnea, Type 2 Diabetes Mellitus, Hyperlipidemia, Hypertension, PVD, CVA, and generalized deconditioning with poor functional status and mostly bedbound. Clinical Indicators: presented from a [facility] with decreased PO intake, generalized weakness, mental status change, and not feeling well. Per the Medical H&P you could not get any kind of history from the patient due to the patient having dementia. Subsequent documentation indicates mental status change, altered mental status, and dementia. Patient was diagnosed with sepsis secondary to UTI, with cultures finalized as klebsiella pneumonia. Labs: WBC: 18.6, RBC 3.80, HGB 11.6 HCT 37.7, BUN 51, Creatinine 2.49, glucose 143, alk phos 129 Treatment: IV antibiotics, rocephin increased to 2 g daily, at dischage continue oral ceftin 500 mg twice a day for 10 days. Please clarify the etiology of the symptom of Altered Mental Status: [ x ] Metabolic Encephalopathy due to Urinary Tract Infection [ ] Dementia [ ] Other condition (please specify) [ ] Unable to determine MTDD
--- NOTE | 2024-11-29 16:29 | P.PN ---
Subjective Progress Note Date: 11/28/24 Principal diagnosis: Reason for follow-up is UTI/leukocytosis Patient is a 89-year-old male with past medical history significant for Coronary Artery Disease (CAD), bladder cancer, CVA/TIA, Diabetes Mellitus, Hyperlipidemia, Hypertension, Myocardial Infarction ([place]), Prostate Disorder, Sleep Apnea/CPAP/BIPAP, Vascular Disorder also with recurrent UTIs has been brought into the hospital for evaluation of decreased oral intake, mental status changes positive UA concerning for symptomatic UTI failing outpatient oral tetracycline therapy. On today's evaluation that is 11/28/2024,the patient denies any fever or any chills, patient is breathing comfortably on room air, the patient denies chest pain shortness of breath and no significant cough, patient denies abdominal pain, no nausea vomiting or diarrhea. Patient white count is around 14.43 creatinine is 2.1 Objective - Vital Signs Vital signs: Vital Signs Temp 97.5 F L 11/28/24 08:00 Pulse 85 11/28/24 08:00 Resp 17 11/28/24 08:00 BP 166/94 11/28/24 08:00 Pulse Ox 96 11/28/24 08:00 FiO2 Intake & Output 11/27/24 11/28/24 11/28/24 18:59 06:59 18:59 Intake Total 118 Output Total 1200 1350 1 Balance -1082 -1350 -1 Intake: Oral 118 Output: Urine 1200 1350 Stool 1 Other: Voiding Method External Catheter External Catheter External Catheter # Bowel Movements 1 - Exam GENERAL DESCRIPTION: An elderly male lying in bed in no distress RESPIRATORY SYSTEM: Unlabored breathing , decreased breath sounds at bases HEART: S1 S2 regular rate and rhythm , ABDOMEN: Soft , no tenderness EXTREMITIES: No edema feet - Labs CBC & Chem 7: 11/28/24 06:22 11/28/24 06:22 Labs: Abnormal Lab Results - Last 24 Hours (Table) 11/27/24 11/27/24 11/27/24 Range/Units 11:58 17:07 20:35 WBC (4.50-10.00) X 10*3/uL RBC (4.40-5.60) X 10*6/uL Hgb (13.0-17.0) g/dL Hct (39.6-50.0) % MCV (80.0-97.0) FL MCHC (32.0-37.0) g/dL Immature Gran # (0.00-0.04) X 10*3/uL Neutrophils # (1.80-7.70) X 10*3/uL Monocytes # (0.20-1.00) X 10*3/uL POC Glucose (mg/dL) 166 H 214 H 129 H (70-110) mg/dL 11/28/24 11/28/24 Range/Units 06:03 06:22 WBC 14.43 H (4.50-10.00) X 10*3/uL RBC 3.63 L (4.40-5.60) X 10*6/uL Hgb 11.2 L (13.0-17.0) g/dL Hct 35.9 L (39.6-50.0) % MCV 98.9 H (80.0-97.0) FL MCHC 31.2 L (32.0-37.0) g/dL Immature Gran # 0.17 H (0.00-0.04) X 10*3/uL Neutrophils # 10.32 H (1.80-7.70) X 10*3/uL Monocytes # 1.37 H (0.20-1.00) X 10*3/uL POC Glucose (mg/dL) 153 H (70-110) mg/dL Assessment and Plan (1) Failure of outpatient treatment Status: Acute Code(s): Z78.9 - OTHER SPECIFIED HEALTH STATUS SNOMED Code(s): 321975708 (2) UTI (urinary tract infection) Status: Acute Code(s): N39.0 - URINARY TRACT INFECTION, SITE NOT SPECIFIED SNOMED Code(s): 82719202 (3) Leukocytosis Status: Acute Code(s): D72.829 - ELEVATED WHITE BLOOD CELL COUNT, UNSPECIFIED SNOMED Code(s): 156760509 Plan: 1patient presented to hospital with weakness mental status change and not feeling well urinary symptoms did have elevated white count positive UA concerning for symptomatic UTI likely from enteric gram-negative pathogen with recent urine culture positive for Klebsiella failing outpatient oral tetracycline therapy with etiology of his recurrent UTI more likely due to incomplete emptying of the bladder 2 ultrasound of the kidney did not show evidence of hydronephrosis has been eval by urology. 3patient urine has been finalized with Klebsiella sensitive to Rocephin 4patient white count is trending down has been cleared for discharge by other citrix consultant we will consider a 10-day course of oral Ceftin on discharge discussed with SPINDRAW OPERATOR for admitting team Dictation was produced using [employer] dictation software. please excuse any grammatical, word or spelling errors. Time with Patient: Less than 30
== END 2024-11-28 16:54 | DRG 871 ==
LOC: EC 08:08 → 6NMEDSUR 12:23 → OBSVTOIN 11-24 12:17
PROVIDERS: ADMIT Internal Medicine; ATTEND Internal Medicine
DX: A41.59 Other Gram-negative sepsis (principal); G93.41 Metabolic encephalopathy; Z66 Do not resuscitate; C67.9 Malignant neoplasm of bladder, unspecified; N18.4 Chronic kidney disease, stage 4 (severe); F03.94 Unspecified dementia, unspecified severity, with anxiety; E11.22 Type 2 diabetes mellitus with diabetic chronic kidney disease; I12.9 Hypertensive chronic kidney disease with stage 1 through stage 4 chronic kidney disease, or unspecified chronic kidney disease; F32.A Depression, unspecified; N13.6 Pyonephrosis; F03.93 Unspecified dementia, unspecified severity, with mood disturbance; N17.9 Acute kidney failure, unspecified; E11.51 Type 2 diabetes mellitus with diabetic peripheral angiopathy without gangrene; E11.65 Type 2 diabetes mellitus with hyperglycemia; I25.10 Atherosclerotic heart disease of native coronary artery without angina pectoris; B96.1 Klebsiella pneumoniae [K. pneumoniae] as the cause of diseases classified elsewhere; G47.33 Obstructive sleep apnea (adult) (pediatric); G89.29 Other chronic pain; M54.59 Other low back pain; E78.5 Hyperlipidemia, unspecified; N40.0 Benign prostatic hyperplasia without lower urinary tract symptoms; N31.9 Neuromuscular dysfunction of bladder, unspecified; K57.90 Diverticulosis of intestine, part unspecified, without perforation or abscess without bleeding; Z86.73 Personal history of transient ischemic attack (TIA), and cerebral infarction without residual deficits; Z95.5 Presence of coronary angioplasty implant and graft; Z74.01 Bed confinement status; Z87.891 Personal history of nicotine dependence; Z87.440 Personal history of urinary (tract) infections; Z85.828 Personal history of other malignant neoplasm of skin; Z79.899 Other long term (current) drug therapy; Z79.84 Long term (current) use of oral hypoglycemic drugs; Z79.82 Long term (current) use of aspirin; I25.2 Old myocardial infarction
CPT/HCPCS: 36415; 71046; 74018; 76770; 80048; 80053; 81001; 83036; 83605; 83735; 85025; 85027; 85610; 85730; 87077; 87086; 87186; 93005; 96361; 96365; 99285

== ENCOUNTER 2024-12-11 18:07 | Inpatient (IN) | payer MEDICARE ==
--- NOTE | 2024-12-11 18:51 | ED ---
General Adult HPI - General Chief complaint: Urogenital Stated complaint: UTI Time Seen by Provider: 12/11/24 18:15 Source: patient, RN notes reviewed, old records reviewed Mode of arrival: EMS Limitations: altered mental status - History of Present Illness Initial comments: This is an 89-year-old male who presents to the emergency department from a [facility]. Patient is unable to give any history no but he came with the patient. Per the report from the [facility] it states that the patient is spiking a fever and more lethargic and he has a history of urinary tract infection. The patient's oral temp it was 100.2. - Related Data Home Medications Medication Instructions Recorded Confirmed Cyanocobalamin (Vitamin B-12) 1,000 mcg PO DAILY@0800 04/17/11/23/24 [Vitamin B-12] Tamsulosin HCl [Flomax] 0.4 mg PO BID@0800,209911/18/21 11/23/24 Cholecalciferol [Vitamin D3 (25 25 mcg PO DAILY@0800 03/19/22 11/23/24 Mcg = 1000 Iu)] Acetaminophen/Diphenhydramine 2 tab PO HS@21312/11/23 11/23/24 [Tylenol PM 500-25mg] Atorvastatin [Lipitor] 10 mg PO HS@209912/11/23 11/23/24 Dextran/Hypromellose/Glycerin 2 drop BOTH EYES BID@0800,209912/11/23 11/23/24 [Genteal Tears 0.1%-0.2%-0.3%] Donepezil [Aricept] 10 mg PO HS@209912/11/23 11/23/24 Escitalopram [Lexapro] 10 mg PO DAILY@0800 12/11/23 11/23/24 Famotidine [Pepcid] 40 mg PO DAILY@0800 12/11/23 11/23/24 Ferrous Sulfate [Iron (65 MG 325 mg PO DAILY@0800 12/11/23 11/23/24 Elemental)] L.acidoph,Paracasei, B.lactis 1 cap PO BID@0800,1700 12/11/23 11/23/24 [Probiotic] Magnesium Hydroxide [Milk of 7,200 mg PO Q48H PRN 12/11/23 11/23/24 Magnesia Concentrate] Na Phos,M-B/Na Phos,Di-Ba [Fleet 133 ml RECTAL DAILY PRN 12/11/23 11/23/24 Adult] Ondansetron [Zofran] 4 mg PO Q6H PRN 12/11/23 11/23/24 bisacodyL [Dulcolax] 10 mg RECTAL DAILY PRN 12/11/23 11/23/24 Aspirin 81 mg PO DAILY@0800 01/05/24 11/23/24 Glucerna Shake 120 ml PO TID@0800,1200,1700 01/05/24 11/23/24 INSULIN ASPART (NovoLOG) [NovoLOG See Protocol SQ 01/05/24 11/23/24 (formulary)] ACHS@07,11,1630,2130 Acetaminophen Tab [Tylenol] 650 mg PO Q4H PRN 11/23/24 11/23/24 Sennosides [Senokot] 8.6 mg PO DAILY@0800 11/23/24 11/23/24 fluorouraciL [Efudex] 1 applic TOPICAL BID@0800,1700 11/23/24 11/23/24 Previous Rx's Medication Instructions Recorded Folic Acid 1 mg PO DAILY tab 11/28/24 Heparin Sodium,Porcine (1 ml) 5,000 unit SQ Q12HR each 11/28/24 [Heparin Sodium] Multivitamins, Thera [Multivitamin 1 each PO DAILY tab 11/28/24 (formulary)] Thiamine [Vitamin B-1] 100 mg PO DAILY tab 11/28/24 cefuroxime axetiL [Ceftin] 500 mg PO BID 10 Days #20 tab 11/28/24 Allergies Allergy/AdvReac Type Severity Reaction Status Date / Time No Known Allergies Allergy Verified 12/11/24 18:18 Review of Systems ROS Statement: Those systems with pertinent positive or pertinent negative responses have been documented in the HPI. ROS Other: All systems not noted in ROS Statement are negative. Past Medical History Past Medical History: Coronary Artery Disease (CAD), Cancer, CVA/TIA, Diabetes Mellitus, Hyperlipidemia, Hypertension, Myocardial Infarction ([place]), Prostate Disorder, Sleep Apnea/CPAP/BIPAP, Vascular Disorder Additional Past Medical History / Comment(s): TIA in 2014, MICHAEL without device, C KD stage III, chronic low back pain, migraines in past, vertigo, balance issues, falls, BPH, benign colon polyp, diverticular disease, vascular disease with surgery-AAA repair and R leg bypass, skin cancer with removal, superficial bladder cancer Last Myocardial Infarction Date:: 04/17/17 History of Any Multi-Drug Resistant Organisms: ESBL Date of last positivie culture/infection: 01/19/24 MDRO Source:: Urine Past Surgical History: Adenoidectomy, Heart Catheterization With Stent, Tonsillectomy Additional Past Surgical History / Comment(s): 12/07/18 endovascular repair/stent graft infra renal aorta, R leg bypass surgery after AAA repair at [facility], colonoscopy/polypectomy, basal cell cancer removed from forehead, bilateral cataract removals/lens implants, cystoscopy -biopsy for cancer Past Anesthesia/Blood Transfusion Reactions: Motion Sickness Additional Past Anesthesia/Blood Transfusion Reaction / Comment(s): . Date of Last Stent Placement:: 03/2017 Past Psychological History: Anxiety, Depression Smoking Status: Former smoker Past Alcohol Use History: None Reported Past Drug Use History: None Reported - Past Family History Brother(s) Family Medical History: No Reported History Sister(s) Family Medical History: No Reported History Son(s) Family Medical History: No Reported History Father Family Medical History: Diabetes Mellitus, Myocardial Infarction ([place]), Vascular Disorder Additional Family Medical History / Comment(s): Father of a VT at the age of 76 or 77yrs. He was an alcoholic. Mother Family Medical History: Deep Vein Thrombosis (DVT), Pulmonary Embolus Additional Family Medical History / Comment(s): Mother at 42 yrs of age of "blood clot" in the lung and it went to the heart. General Exam - General Exam Comments Initial Comments: GENERAL: Patient is well-developed and well-nourished. Patient is nontoxic and well-h ydrated and is in no acute distress. ENT: Neck is soft and supple. No significant lymphadenopathy is noted. Oropharynx is clear. Moist mucous membranes. Neck has full range of motion without elic iting any pain. EYES: The sclera were anicteric and conjunctiva were pink and moist. Extraocular movements were intact and pupils were equal round and reactive to light. Eyelids were unremarkable. PULMONARY: Unlabored respirations. Good breath sounds bilaterally. No audible rales rhonchi or wheezing was noted. CARDIOVASCULAR: There is a regular rate and rhythm without any murmurs gallops or rubs. ABDOMEN: Soft and nontender with normal bowel sounds. SKIN: Skin is clear with no lesions or rashes and otherwise unremarkable. NEUROLOGIC: Patient is alert and oriented x 1. Cranial nerves II through XII are grossly intact. Motor and sensory are also intact. Normal speech, volume and content. Symmetrical smile. MUSCULOSKELETAL: Normal extremities with adequate strength and full range of motion. No lower extremity swelling or edema. No calf tenderness. LYMPHATICS: No significant lymphadenopathy is noted PSYCHIATRIC: Unable to secondary to dementia Limitations: altered mental status Course Vital Signs 12/11/24 12/11/24 12/11/24 18:15 18:22 19:06 Temperature 98.3 F Pulse Rate 115 H 111 H Respiratory 18 20 Rate Blood Pressure 87/58 100/66 105/69 O2 Sat by Pulse 95 96 Oximetry 12/11/24 12/11/24 19:12 20:04 Temperature 100.2 F H 99.3 F Pulse Rate 114 H Respiratory 19 Rate Blood Pressure 99/64 O2 Sat by Pulse 91 L Oximetry Medical Decision Making - Medical Decision Making EKG is interpreted by myself but EKG shows a sinus tachycardia at 108 bpm CO was 168 QRS is 86 QT interval 322 QTc is 386. Patient's EKG shows no ST segment elevation or depression. Was pt. sent in by a medical professional or institution ([facility] Babin, RECOVERY COLLECTOR, urgent care, hospital, or [facility]...) When possible be specific @ -No Did you speak to anyone other than the patient for history (EMS, parent, family, police, friend...)? What history was obtained from this source @ -No Did you review nursing and triage notes (agree or disagree)? Why? @ -I reviewed and agree with nursing and triage notes Were old charts reviewed (outside hosp., previous admission, EMS record, old EKG, old radiological studies, urgent care reports/EKG's, [facility] records)? Report findings @ -No old charts were reviewed Differential Diagnosis? @ -Differential Fever: Pneumonia, viral URI, endocarditis, myocarditis, pericarditis, otitis, sinusitis, peritonsillar Abscess, retropharyngeal Abscess, epiglottitis, peritonitis, appendicitis, Alexandra cystitis, diverticulitis, hepatitis, colitis, UTI, PID, TOA, pyelonephritis, prostatitis, epididymitis, meningitis, encephalitis, pulmonary embolism, CVA, thyroid storm, pancreatitis, adrenal crisis, cavernous sinus thrombosis, this is not meant to be an all-inclusive list. EKG interpreted by me (3pts min.). @ -As above X-rays interpreted by me (1pt min.). @ -Chest x-ray shows no acute abnormality CT interpreted by me (1pt min.). @ -None done U/S interpreted by me (1pt. min.). @ -None done What testing was considered but not performed or refused? (CT, X-rays, U/S, labs)? Why? @ -None What meds were considered but not given or refused? Why? @ -None Did you discuss the management of the patient with other professionals (professionals i.e. , PA, RECOVERY COLLECTOR, lab, RT, psych nurse, criminal justice social worker, city plant supervisor, teacher, chief resource officer, field nurse case manager)? Give summary @ -I spoke with [facility] agreed to [facility] the patient Was smoking cessation discussed for >3mins.? @ -No Was critical care preformed (if so, how long)? @ -No Were there social determinants of health that impacted care today? How? (Homelessness, low income, unemployed, alcoholism, drug addiction, transportation, low edu. Level, literacy, decrease access to med. care, [facility], rehab)? @ -No Was there de-escalation of care discussed even if they declined (Discuss DNR or withdrawal of care, Hospice)? DNR status @ -No What co-morbidities impacted this encounter? (DM, HTN, Smoking, COPD, CAD, Can cer, CVA, ARF, Chemo, Hep., AIDS, mental health diagnosis, sleep apnea, morbid obesity)? @ -None Was patient admitted / discharged? Hospital course, mention meds given and route, prescriptions, significant lab abnormalities, going to OR and other pertinent info. @ -I believe the patient has a UTI and I looked at her previous urine results the patient had 3 different bacteria's in the past all resistant to different things but they were all susceptible to Zosyn so I started the patient on Zosyn. [facility] will be admitted to [facility] Undiagnosed new problem with uncertain prognosis? @ -No Drug Therapy requiring intensive monitoring for toxicity (Heparin, Nitro, Insulin, Cardizem)? @ -No Were any procedures done? @ -No Diagnosis/symptom? @ -Urinary tract infection Acute, or Chronic, or Acute on Chronic? @ -Acute Uncomplicated (without systemic symptoms) or Complicated (systemic symptoms)? @ -Complicated Side effects of treatment? @ -No Exacerbation, Progression, or Severe Exacerbation? @ -No Poses a threat to life or bodily function? How? (Chest pain, [place], [place], pneumonia, PE, COPD, DKA, ARF, appy, cholecystitis, CVA, Diverticulitis, Homicidal, Suicidal, threat to staff... and all critical care pts) @ -Yes this can lead to sepsis and endorgan dysfunction Diagnosis/symptom? @ -Sepsis Acute, or Chronic, or Acute on Chronic? @ -Acute Uncomplicated (without systemic symptoms) or Complicated (systemic symptoms)? @ -Complicate Side effects of treatment? @ -None Exacerbation, Progression, or Severe Exacerbation] @ -No Poses a threat to life or bodily function? @ -Yes this can lead to endorgan dysfunction - Lab Data Result diagrams: 12/11/24 18:44 12/11/24 18:44 Lab Results 12/11/24 12/11/24 12/11/24 Range/Units 18:44 18:44 18:44 WBC 23.4 H (3.8-10.6) k/uL RBC 3.95 L (4.30-5.90) m/uL Hgb 12.5 L (13.0-17.5) gm/dL Hct 39.0 (39.0-53.0) % MCV 98.7 (80.0-100.0) fL MCH 31.6 (25.0-35.0) pg MCHC 32.0 (31.0-37.0) g/dL RDW 13.7 (11.5-15.5) % Plt Count 269 (150-450) k/uL MPV 7.5 Neutrophils % 90 % Lymphocytes % 5 % Monocytes % 4 % Eosinophils % 0 % Basophils % 0 % Neutrophils # 21.1 H (1.3-7.7) k/uL Lymphocytes # 1.1 (1.0-4.8) k/uL Monocytes # 0.8 (0-1.0) k/uL Eosinophils # 0.1 (0-0.7) k/uL Basophils # 0.1 (0-0.2) k/uL Hypochromasia Slight PT 11.3 (10.0-12.5) sec INR 1.0 (<1.2) APTT 21.1 L (22.0-30.0) sec Sodium 130 L (137-145) mmol/L Potassium 5.3 H (3.5-5.1) mmol/L Chloride 100 (98-107) mmol/L Carbon Dioxide 17 L (22-30) mmol/L Anion Gap 13 mmol/L BUN 38 H (9-20) mg/dL Creatinine 2.46 H (0.66-1.25) mg/dL Est GFR (CKD-EPI)AfAm 26 (>60 ml/min/1.73 sqM) Est GFR (CKD-EPI)NonAf 23 (>60 ml/min/1.73 sqM) Glucose 219 H (74-99) mg/dL Plasma Lactic Acid Zander (0.7-2.0) mmol/L Calcium 9.1 (8.4-10.2) mg/dL Total Bilirubin 0.8 (0.2-1.3) mg/dL AST 22 (17-59) U/L ALT 16 (4-49) U/L Alkaline Phosphatase 113 (38-126) U/L Total Protein 6.5 (6.3-8.2) g/dL Albumin 2.8 L (3.5-5.0) g/dL 12/11/24 Range/Units 18:44 WBC (3.8-10.6) k/uL RBC (4.30-5.90) m/uL Hgb (13.0-17.5) gm/dL Hct (39.0-53.0) % MCV (80.0-100.0) fL MCH (25.0-35.0) pg MCHC (31.0-37.0) g/dL RDW (11.5-15.5) % Plt Count (150-450) k/uL MPV Neutrophils % % Lymphocytes % % Monocytes % % Eosinophils % % Basophils % % Neutrophils # (1.3-7.7) k/uL Lymphocytes # (1.0-4.8) k/uL Monocytes # (0-1.0) k/uL Eosinophils # (0-0.7) k/uL Basophils # (0-0.2) k/uL Hypochromasia PT (10.0-12.5) sec INR (<1.2) APTT (22.0-30.0) sec Sodium (137-145) mmol/L Potassium (3.5-5.1) mmol/L Chloride (98-107) mmol/L Carbon Dioxide (22-30) mmol/L Anion Gap mmol/L BUN (9-20) mg/dL Creatinine (0.66-1.25) mg/dL Est GFR (CKD-EPI)AfAm (>60 ml/min/1.73 sqM) Est GFR (CKD-EPI)NonAf (>60 ml/min/1.73 sqM) Glucose (74-99) mg/dL Plasma Lactic Acid Zander 2.8 H* (0.7-2.0) mmol/L Calcium (8.4-10.2) mg/dL Total Bilirubin (0.2-1.3) mg/dL AST (17-59) U/L ALT (4-49) U/L Alkaline Phosphatase (38-126) U/L Total Protein (6.3-8.2) g/dL Albumin (3.5-5.0) g/dL Critical Care Time Critical Care Time: Yes Total Critical Care Time: 35 Disposition Clinical Impression: Urinary tract infection, Sepsis Disposition: ADMITTED IP TO THIS [facility] Referrals: Chinedu Gan MD [Primary Care Provider] - 1-2 days Time of Disposition: 20:46
[2024-12-11 18:54] LABS: Basophils # (A) 0.1 k/uL (0-0.2); Basophils % (A) 0 %; Eosinophils # (A) 0.1 k/uL (0-0.7); Eosinophils % (A) 0 %; HGB 12.5 gm/dL (13.0-17.5); Hypochromasia Slight; Lymphocytes # (A) 1.1 k/uL (1.0-4.8); Lymphocytes % (A) 5 %; MCH 31.6 pg (25.0-35.0); MCV 98.7 fL (80.0-100.0); Mean Platelet Volume 7.5; Monocytes # (A) 0.8 k/uL (0-1.0); Monocytes % (A) 4 %; Neutrophils # (A) 21.1 k/uL (1.3-7.7); Neutrophils % (A) 90 %; Platelet Count 269 k/uL (150-450); RBC 3.95 m/uL (4.30-5.90); RDW 13.7 % (11.5-15.5); WBC 23.4 k/uL (3.8-10.6)
[2024-12-11] MEDS: ACETAMINOPHEN TAB 500 MG TAB PO STA (18:58)
[2024-12-11] MEDS: IBUPROFEN 600 MG TAB PO STA (18:58)
[2024-12-11] MEDS: SODIUM CHLORIDE 0.9% 500 ML 500 ML IV SCH (19:02)
[2024-12-11 19:07] LABS: ALT 16 U/L (4-49); African American GFR (CKD) 26 (>60 ml/min/1.73 sqM); Albumin 2.8 g/dL (3.5-5.0); Anion Gap 13 mmol/L; Blood Urea Nitrogen 38 mg/dL (9-20); Calcium 9.1 mg/dL (8.4-10.2); Carbon Dioxide 17 mmol/L (22-30); Chloride 100 mmol/L (98-107); Glucose 219 mg/dL (74-99); Non-African American GFR(CKD) 23 (>60 ml/min/1.73 sqM); Sodium 130 mmol/L (137-145); Total Bilirubin 0.8 mg/dL (0.2-1.3); Total Protein 6.5 g/dL (6.3-8.2)
[2024-12-11 19:10] LABS: Prothrombin Time 11.3 sec (10.0-12.5)
[2024-12-11 19:13] LABS: Partial Thromboplastin Time 21.1 sec (22.0-30.0)
[2024-12-11 19:38] LABS: AST 22 U/L (17-59); Alkaline Phosphatase 113 U/L (38-126); Potassium 5.3 mmol/L (3.5-5.1)
--- NOTE | 2024-12-11 19:50 | XR ---
EXAMINATION TYPE: XR chest 1V portable DATE OF EXAM: 12/11/2024 7:23 PM COMPARISON: Chest radiographs from 11/23/2024 CLINICAL INDICATION: Male, 89 years old with history of Fever; TECHNIQUE: XR chest 1V portable Frontal view of the chest. FINDINGS: Lungs/Pleura: There is no evidence of pleural effusion, focal consolidation, or pneumothorax. Pulmonary vascularity: Unremarkable. Heart/mediastinum: Cardiomediastinal silhouette is unremarkable. Musculoskeletal: No acute osseous pathology. IMPRESSION: No acute cardiopulmonary disease/process. [facility], , 12/11/2024 7:48 PM
[2024-12-11] MEDS: PIPERACILLIN-TAZOBACTAM 3.375 GM in SODIUM CHLORIDE 0.9% 100 ML IVPB STA (20:10)
[2024-12-11 20:59] LABS: Appearance,Urine Turbid (Clear); Bilirubin,Urine Negative (Negative); Blood,Urine Moderate (Negative); Color,Urine Light Brown; Glucose,Urine (UA) Negative (Negative); Ketones,Urine Negative (Negative); Leukocyte Esterase,Urine Large (Negative); Nitrite,Urine Negative (Negative); PH, Urine 6.5 (5.0-8.0); Protein,Urine 2+ (Negative); RBC,Urine >182 /hpf (0-5); Urobilinogen,Urine <2.0 mg/dL (<2.0); WBC,Urine >182 /hpf (0-5)
[2024-12-11] MEDS: SODIUM CHLORIDE 0.9% 1,000 ML IV ONE (21:00)
[2024-12-11 21:17] LABS: Specific Gravity,Urine 1.015 (1.001-1.035)
[2024-12-12] MEDS: PIPERACILLIN-TAZOBACTAM 3.375 GM in SODIUM CHLORIDE 0.9% 100 ML IVPB SCH (00:26)
[2024-12-12 07:22] LABS: Glucose,Whole Blood 197 mg/dL (70-110)
[2024-12-12] MEDS ORDERED: ONDANSETRON 4 MG TAB PO PRN (10:32)
[2024-12-12] MEDS ORDERED: ACETAMINOPHEN TAB 325 MG TAB PO PRN (10:32)
[2024-12-12] MEDS ORDERED: bisacodyL 10 MG SUPP RECTAL PRN (10:32)
[2024-12-12] MEDS ORDERED: MAGNESIUM HYDROXIDE 2,400 MG/30 ML CUP PO PRN (10:32)
[2024-12-12] MEDS ORDERED: DEXTROSE 50% SYRINGE 50 ML IVP PRN ×2 (10:33)
[2024-12-12 11:27] LABS: Glucose,Whole Blood 228 mg/dL (70-110)
[2024-12-12] MEDS: INSULIN ASPART (NovoLOG) 100 UNIT/ML VIAL SQ SCH (11:56)
[2024-12-12] MEDS: ASPIRIN 81 MG PO SCH (11:56)
[2024-12-12] MEDS: THIAMINE 100 MG TAB PO SCH (11:56)
[2024-12-12] MEDS: HEPARIN SODIUM,PORCINE 5,000 UNIT/ML 1 ML VIAL SQ SCH (11:56)
[2024-12-12] MEDS: TAMSULOSIN 0.4 MG CAP.ER.24H PO SCH (11:56)
[2024-12-12] MEDS: ESCITALOPRAM 10 MG TAB PO SCH (12:04)
[2024-12-12] MEDS: SODIUM CHLORIDE 0.9% 1,000 ML IV SCH (12:04)
[2024-12-12 12:30] LABS: Basophils % (A) 0 %; Eosinophils % (A) 0 %; HCT 33.7 % (39.0-53.0); HGB 10.4 gm/dL (13.0-17.5); Hypochromasia Moderate; Lymphocytes # (A) 1.1 k/uL (1.0-4.8); Lymphocytes % (A) 5 %; MCH 31.4 pg (25.0-35.0); MCHC 30.7 g/dL (31.0-37.0); MCV 102.3 fL (80.0-100.0); Macrocytosis Slight; Mean Platelet Volume 7.9; Monocytes % (A) 5 %; Neutrophils # (A) 17.5 k/uL (1.3-7.7); Neutrophils % (A) 88 %; Platelet Count 228 k/uL (150-450); RDW 13.9 % (11.5-15.5); WBC 19.8 k/uL (3.8-10.6)
[2024-12-12 12:59] LABS: African American GFR (CKD) 23 (>60 ml/min/1.73 sqM); Anion Gap 8 mmol/L; Blood Urea Nitrogen 40 mg/dL (9-20); Calcium 8.1 mg/dL (8.4-10.2); Carbon Dioxide 21 mmol/L (22-30); Chloride 103 mmol/L (98-107); Glucose 208 mg/dL (74-99); Non-African American GFR(CKD) 20 (>60 ml/min/1.73 sqM); Potassium 5.1 mmol/L (3.5-5.1); Sodium 132 mmol/L (137-145)
--- NOTE | 2024-12-12 14:34 | P.HPIM ---
History of Present Illness H&P Date: 12/12/24 This is a pleasant 89-year-old male who is a permanent resident at [facility]. Patient has a past medical history significant for coronary artery disease with prior cardiac stenting, stroke, diabetes mellitus, hypertension, hyperlipidemia, sleep apnea, chronic kidney disease stage III, AAA with repair. Patient comes in with complaints of fever and abdominal pain from halfway. He is alert x 2 currently. He is having some mild abdominal discomfort on examination. The patient does have a known history of chronic hydronephrosis and also frequent urinary tract infections most recently back in November [id number] with positive urine culture revealing Klebsiella pneumonia with resistance to ampicillin. Patient this admission had a significantly abnormal urinalysis 2+ protein moderate blood large leukocyte esterase and greater than 182 RBC WBC with many WBC clumps. Urine is brown and turbid in color. White blood cell count was found to be elevated at 23.4 hemoglobin 12.5, sodium of 130 potassium of 5.3, BUN of 38 creatinine of 2.46. Patient also had elevated lactic acid which is since normalized. Patient was admitted to the hospital under internal medicine with a consult placed to infectious disease for the sepsis. Patient also reports an episode of diarrhea over the halfway. He is started empirically on IV dose and a urine culture has been ordered and pending at this time. Cultures have also been taken and pending. REVIEW OF SYSTEMS: CONSTITUTIONAL: No fever, no malaise, no fatigue. HEENT: No recent visual problems or hearing problems. Denied any sore throat. CARDIOVASCULAR: No chest pain, orthopnea, PND, no palpitations, no syncope. PULMONARY: No shortness of breath, no cough, no hemoptysis. GASTROINTESTINAL: No diarrhea, no nausea, no vomiting, no abdominal pain. NEUROLOGICAL: No headaches, no weakness, no numbness. HEMATOLOGICAL: Denies any bleeding or petechiae. GENITOURINARY: Denies any burning micturition, frequency, or urgency. MUSCULOSKELETAL/RHEUMATOLOGICAL: Denies any joint pain, swelling, or any muscle pain. ENDOCRINE: Denies any polyuria or polydipsia. The rest of the 14-point review of systems is negative. PHYSICAL EXAMINATION: GENERAL: The patient is alert and oriented x2, not in any acute distress. Well developed, well nourished. HEENT: Pupils are round and equally reacting to light. EOMI. No scleral icterus. No conjunctival pallor. Normocephalic, atraumatic. No pharyngeal erythema. No thyromegaly. CARDIOVASCULAR: S1 and S2 present. No murmurs, rubs, or gallops. PULMONARY: Chest is clear to auscultation, no wheezing or crackles. ABDOMEN: Soft, mild suprapubic tenderness, nondistended, normoactive bowel sounds. No palpable organomegaly. MUSCULOSKELETAL: No joint swelling or deformity. EXTREMITIES: No cyanosis, clubbing, or pedal edema. NEUROLOGICAL: Gross neurological examination did not reveal any focal deficits. SKIN: No rashes. Assessment and Plan Acute urinary tract infection with sepsis present on admission Leukocytosis secondary to above Lactic acidosis hyponatremia hypovolemic from infection improving with IV fluids Acute on chronic renal dysfunction acute tubular necrosis from sepsis Chronic bilateral hydronephrosis evaluated by urology prior admission 2 weeks ago Chronic kidney disease stage III baseline creatinine appears to be about 1.9 Coronary artery disease with prior cardiac stenting History of diabetes mellitus type 2 Hypertension Hyperlipidemia History of AAA with endovascular repair and stent graft infrarenal artery Anxiety/depression Sleep apnea Peripheal Vascular disease History of Bladder cancer Dementia GI prophylaxis DVT prophylaxis heparin Subcu NO CODE Plan Consult infectious disease Urine culture has been ordered and pending antibiotics have been changed to IV ceftriaxone Resume appropriate home indications Continue Accu-Cheks ACHS and sliding scale insulin Check bladder scan monitor for urinary retention Monitor electrolytes and renal function Continue normal saline at 75 mls/hr Repeat BMP/CBC in the AM PT OT consultation and social work consultation with return to [facility] on discharge. The impression and plan of care has been dictated by Diane Honeycutt Nurse Practitioner as directed. Dr. Curtis MD I have performed a history and physical examination and medical decision making of this patient, discussed the same with the dictator, and agree with the dictators assessment and plan as written, documented as a scribe. Based on total visit time, I have performed more than 50% of this visit. Past Medical History Past Medical History: Coronary Artery Disease (CAD), Cancer, CVA/TIA, Diabetes Mellitus, Hyperlipidemia, Hypertension, Myocardial Infarction (AR), Prostate Dis order, Sleep Apnea/CPAP/BIPAP, Vascular Disorder Additional Past Medical History / Comment(s): TIA in 2015, MICHAEL without device, CKD stage III, chronic low back pain, migraines in past, vertigo, balance issues, falls, BPH, benign colon polyp, diverticular disease, vascular disease with surgery-AAA repair and R leg bypass, skin cancer with removal, superficial bladder cancer Last Myocardial Infarction Date:: 04/17/17 History of Any Multi-Drug Resistant Organisms: ESBL Date of last positivie culture/infection: 01/19/24 MDRO Source:: Urine Past Surgical History: Adenoidectomy, Heart Catheterization With Stent, Tonsillectomy Additional Past Surgical History / Comment(s): 12/07/18 endovascular repair/stent graft infra renal aorta, R leg bypass surgery after AAA repair at [facility], colonoscopy/polypectomy, basal cell cancer removed from forehead, bilateral cataract removals/lens implants, cystoscopy -biopsy for cancer Past Anesthesia/Blood Transfusion Reactions: No Reported Reaction Additional Past Anesthesia/Blood Transfusion Reaction / Comment(s): . Date of Last Stent Placement:: 03/2017 Past Psychological History: Anxiety, Depression Additional Psychological History / Comment(s): . Smoking Status: Former smoker Past Alcohol Use History: None Reported Additional Past Alcohol Use History / Comment(s): Pt started smoking in 1957 and quit in 1986. smoked 1ppd Past Drug Use History: None Reported - Past Family History Brother(s) Family Medical History: No Reported History Sister(s) Family Medical History: No Reported History Son(s) Family Medical History: No Reported History Father Family Medical History: Diabetes Mellitus, Myocardial Infarction (AR), Vascular Disorder Additional Family Medical History / Comment(s): Father of a AR at the age of 76 or 77yrs. He was an alcoholic. Mother Family Medical History: Deep Vein Thrombosis (DVT), Pulmonary Embolus Additional Family Medical History / Comment(s): Mother at 42 yrs of age of "blood clot" in the lung and it went to the heart. Medications and Allergies Home Medications Medication Instructions Recorded Confirmed Type Tamsulosin HCl [Flomax] 0.4 mg PO BID@0800,209911/18/21 12/12/24 History Cholecalciferol [Vitamin D3 (25 25 mcg PO DAILY@0800 03/19/22 12/12/24 History Mcg = 1000 Iu)] Acetaminophen/Diphenhydramine 2 tab PO HS@209912/11/23 12/12/24 History [Tylenol PM 500-25mg] Atorvastatin [Lipitor] 10 mg PO HS@209912/11/23 12/12/24 History Dextran/Hypromellose/Glycerin 2 drop BOTH EYES BID@0800,209912/11/23 12/12/24 History [Genteal Tears 0.1%-0.2%-0.3%] Donepezil [Aricept] 10 mg PO HS@209912/11/23 12/12/24 History Escitalopram [Lexapro] 10 mg PO DAILY@0800 12/11/23 12/12/24 History Famotidine [Pepcid] 40 mg PO DAILY@0800 12/11/23 12/12/24 History Ferrous Sulfate [Iron (65 MG 325 mg PO DAILY@0800 12/11/23 12/12/24 History Elemental)] L.acidoph,Paracasei, B.lactis 1 cap PO BID@0800,1700 12/11/23 12/12/24 History [Probiotic] Magnesium Hydroxide [Milk of 7,200 mg PO Q48H PRN 12/11/23 12/12/24 History Magnesia Concentrate] Na Phos,M-B/Na Phos,Di-Ba [Fleet 133 ml RECTAL DAILY PRN 12/11/23 12/12/24 History Adult] Ondansetron [Zofran] 4 mg PO Q6H PRN 12/11/23 12/12/24 History bisacodyL [Dulcolax] 10 mg RECTAL DAILY PRN 12/11/23 12/12/24 History Aspirin 81 mg PO DAILY@0800 01/05/24 12/12/24 History Glucerna Shake 120 ml PO DAILY@0800 01/05/24 12/12/24 History INSULIN ASPART (NovoLOG) [NovoLOG See Protocol SQ 01/05/24 12/12/24 History (formulary)] ACHS@07,11,1630,2130 Acetaminophen Tab [Tylenol] 650 mg PO Q4H PRN 11/23/24 12/12/24 History Sennosides [Senokot] 8.6 mg PO BID@0800,1700 11/23/24 12/12/24 History Cyanocobalamin [Vitamin B-12] 1,000 mcg PO DAILY@0800 12/12/24 12/12/24 History Folic Acid 1 mg PO DAILY@0800 12/12/24 12/12/24 History Multivitamins, Thera [Multivitamin 1 tab PO DAILY@0812/12/24 12/12/24 History (formulary)] Thiamine [Vitamin B-1] 100 mg PO DAILY@0800 12/12/24 12/12/24 History Allergies Allergy/AdvReac Type Severity Reaction Status Date / Time No Known Allergies Allergy Verified 12/12/24 11:12 Physical Exam Vitals: Vital Signs Temp Pulse Pulse Resp BP BP Pulse Ox 12/12/24 13:55 97.9 F 65 17 117/66 99 12/12/24 07:37 97.6 F 65 17 116/74 98 12/12/24 00:26 97.4 F L 60 17 98/62 95 12/11/24 23:15 88 17 101/60 95 12/11/24 21:45 97.8 F 86 17 120/67 96 12/11/24 20:04 99.3 F 114 H 19 99/64 91 L 12/11/24 19:12 100.2 F H 12/11/24 19:06 111 H 20 105/69 96 12/11/24 18:22 100/66 12/11/24 18:15 98.3 F 115 H 18 87/58 95 Intake and Output 12/11/24 12/12/24 12/12/24 22:59 06:59 14:59 Other: Voiding Method Diaper Incontinent # Voids 0 Weight 54.431 kg 54.431 kg Results CBC & Chem 7: 12/12/24 11:58 12/12/24 11:58 Labs: Abnormal Lab Results - Last 24 Hours (Table) 12/11/24 12/11/24 12/11/24 Range/Units 18:44 18:44 18:44 WBC 23.4 H (3.8-10.6) k/uL RBC 3.95 L (4.30-5.90) m/uL Hgb 12.5 L (13.0-17.5) gm/dL Hct (39.0-53.0) % MCV (80.0-100.0) fL MCHC (31.0-37.0) g/dL Neutrophils # 21.1 H (1.3-7.7) k/uL APTT 21.1 L (22.0-30.0) sec Sodium 130 L (137-145) mmol/L Potassium 5.3 H (3.5-5.1) mmol/L Carbon Dioxide 17 L (22-30) mmol/L BUN 38 H (9-20) mg/dL Creatinine 2.46 H (0.66-1.25) mg/dL Glucose 219 H (74-99) mg/dL POC Glucose (mg/dL) (70-110) mg/dL Plasma Lactic Acid Zander (0.7-2.0) mmol/L Calcium (8.4-10.2) mg/dL Albumin 2.8 L (3.5-5.0) g/dL Urine Protein (Negative) Urine Blood (Negative) Ur Leukocyte Esterase (Negative) Urine RBC (0-5) /hpf Urine WBC (0-5) /hpf Urine WBC Clumps (None) /hpf 12/11/24 12/11/24 12/12/24 Range/Units 18:44 20:32 07:21 WBC (3.8-10.6) k/uL RBC (4.30-5.90) m/uL Hgb (13.0-17.5) gm/dL Hct (39.0-53.0) % MCV (80.0-100.0) fL MCHC (31.0-37.0) g/dL Neutrophils # (1.3-7.7) k/uL APTT (22.0-30.0) sec Sodium (137-145) mmol/L Potassium (3.5-5.1) mmol/L Carbon Dioxide (22-30) mmol/L BUN (9-20) mg/dL Creatinine (0.66-1.25) mg/dL Glucose (74-99) mg/dL POC Glucose (mg/dL) 197 H (70-110) mg/dL Plasma Lactic Acid Zander 2.8 H* (0.7-2.0) mmol/L Calcium (8.4-10.2) mg/dL Albumin (3.5-5.0) g/dL Urine Protein 2+ H (Negative) Urine Blood Moderate H (Negative) Ur Leukocyte Esterase Large H (Negative) Urine RBC >182 H (0-5) /hpf Urine WBC >182 H (0-5) /hpf Urine WBC Clumps Many H (None) /hpf 12/12/24 12/12/24 12/12/24 Range/Units 11:26 11:58 11:58 WBC 19.8 H (3.8-10.6) k/uL RBC 3.30 L (4.30-5.90) m/uL Hgb 10.4 L (13.0-17.5) gm/dL Hct 33.7 L (39.0-53.0) % MCV 102.3 H (80.0-100.0) fL MCHC 30.7 L (31.0-37.0) g/dL Neutrophils # 17.5 H (1.3-7.7) k/uL APTT (22.0-30.0) sec Sodium 132 L (137-145) mmol/L Potassium (3.5-5.1) mmol/L Carbon Dioxide 21 L (22-30) mmol/L BUN 40 H (9-20) mg/dL Creatinine 2.74 H (0.66-1.25) mg/dL Glucose 208 H (74-99) mg/dL POC Glucose (mg/dL) 228 H (70-110) mg/dL Plasma Lactic Acid Zander (0.7-2.0) mmol/L Calcium 8.1 L (8.4-10.2) mg/dL Albumin (3.5-5.0) g/dL Urine Protein (Negative) Urine Blood (Negative) Ur Leukocyte Esterase (Negative) Urine RBC (0-5) /hpf Urine WBC (0-5) /hpf Urine WBC Clumps (None) /hpf Thrombosis Risk Factor Assmnt - Choose All That Apply Any of the Below Risk Factors Present?: No Each Risk Factor Represents 3 Points: Age 75 years or older Other congenital or acquired thrombophilia - If yes, enter type in comment: No Thrombosis Risk Factor Assessment Total Risk Factor Score: 3 Thrombosis Risk Factor Assessment Level: Moderate Risk Assessment and Plan Time with Patient: Less than 30
[2024-12-12] MEDS: LACTOBACILLUS ACIDOPHILUS/PECT 1 EACH CAPSULE PO SCH (16:24)
[2024-12-12 16:35] VITALS: BMI 17.7
[2024-12-12] MEDS ORDERED: NON FORMULARY DRUG (Fluorouracil [Efudex] 40 GM Cream..G.) TOPICAL SCH (17:00)
[2024-12-12 17:05] LABS: Glucose,Whole Blood 146 mg/dL (70-110)
[2024-12-12 19:59] LABS: Glucose,Whole Blood 191 mg/dL (70-110)
[2024-12-12] MEDS ORDERED: PIPERACILLIN-TAZOBACTAM 3.375 GM in SODIUM CHLORIDE 0.9% 100 ML IVPB SCH (21:00)
[2024-12-12] MEDS: ATORVASTATIN 10 MG TAB PO SCH (21:37)
[2024-12-12 21:38] LABS: Glucose,Whole Blood 183 mg/dL (70-110)
[2024-12-12] MEDS: DONEPEZIL 10 MG TAB PO SCH (21:38)
[2024-12-12] MEDS: ARTIFICIAL TEARS-HYPROMELLOSE DROPS 15 ML BTL BOTH EYES SCH (23:06)
[2024-12-13 06:20] LABS: Glucose,Whole Blood 136 mg/dL (70-110)
--- NOTE | 2024-12-13 07:07 | P.CONS ---
History of Present Illness - Reason for Consult Consult date: 12/12/24 Sepsis, UTI history of MDRO Requesting physician: Diane Honeycutt - Chief Complaint Fever and weakness x 1 day - History of Present Illness Patient is a 89-year-old male with a past medical history significant for coronary artery disease CVA TIA diabetes mellitus hypertension hyperlipidemia DC prostate disorder presenting to the hospital for evaluation of fever as well as weakness, lethargy from a local senior care concerning for UTI patient on presentation to the hospital did have a temperature of 100.2 F patient was not tachycardic hypotensive or hypoxic and no need for supplemental oxygen he did have a white count of 23.4 with a left shift. The creatinine has been mildly elevated liver isms are normal urine has been positive did have a chest x-ray no acute cardiopulmonary disease process, infectious he was consulted regarding UTI sepsis and history of MDRO patient is currently on Zosyn reviewed the culture data did show that he has grown Klebsiella in the urine on 11/17/2024 as well as 11/23/2024 and both of them are sensitive to ceftriaxone patient himself is not a very good historian he is awake complaining of weakness but denies any headache no chest pain shortness of breath or cough no vomiting and no diarrhea Review of Systems Positive points has been mentioned in HPI complete review could not be obtained because of his underlying mental status Past Medical History Past Medical History: Coronary Artery Disease (CAD), Cancer, CVA/TIA, Diabetes Mellitus, Hyperlipidemia, Hypertension, Myocardial Infarction (DC), Prostate Disorder, Sleep Apnea/CPAP/BIPAP, Vascular Disorder Additional Past Medical History / Comment(s): TIA in 2014, MICHAEL without device, CKD stage III, chronic low back pain, migraines in past, vertigo, balance issues, falls, BPH, benign colon polyp, diverticular disease, vascular disease with surgery-AAA repair and R leg bypass, skin cancer with removal, superficial bladder cancer Last Myocardial Infarction Date:: 04/17/17 History of Any Multi-Drug Resistant Organisms: ESBL Year Discovered:: 01/19/24 MDRO Source:: Urine Past Surgical History: Adenoidectomy, Heart Catheterization With Stent, Tonsillectomy Additional Past Surgical History / Comment(s): 12/07/18 endovascular repair/stent graft infra renal aorta, R leg bypass surgery after AAA repair at [facility], colonoscopy/polypectomy, basal cell cancer removed from forehead, bilateral cataract removals/lens implants, cystoscopy -biopsy for cancer Past Anesthesia/Blood Transfusion Reactions: No Reported Reaction Additional Past Anesthesia/Blood Transfusion Reaction / Comm: . Date of Last Stent Placement:: 03/2017 Past Psychological History: Anxiety, Depression Additional Psychological History / Comment(s): . Smoking Status: Former smoker Past Alcohol Use History: None Reported Additional Past Alcohol Use History / Comment(s): Pt started smoking in 1957 and quit in 1986. smoked 1ppd Past Drug Use History: None Reported - Past Family History Brother(s) Family Medical History: No Reported History Sister(s) Family Medical History: No Reported History Son(s) Family Medical History: No Reported History Father Family Medical History: Diabetes Mellitus, Myocardial Infarction (DC), Vascular Disorder Additional Family Medical History / Comment(s): Father of a DC at the age of 76 or 77yrs. He was an alcoholic. Mother Family Medical History: Deep Vein Thrombosis (DVT), Pulmonary Embolus Additional Family Medical History / Comment(s): Mother at 42 yrs of age of "blood clot" in the lung and it went to the heart. Medications and Allergies Home Medications Medication Instructions Recorded Confirmed Type Tamsulosin HCl [Flomax] 0.4 mg PO BID@0800,209911/18/21 12/12/24 History Cholecalciferol [Vitamin D3 (25 25 mcg PO DAILY@79903/19/22 12/12/24 History Mcg = 1000 Iu)] Acetaminophen/Diphenhydramine 2 tab PO HS@209912/11/23 12/12/24 History [Tylenol PM 500-25mg] Atorvastatin [Lipitor] 10 mg PO HS@209912/11/23 12/12/24 History Dextran/Hypromellose/Glycerin 2 drop BOTH EYES BID@0800,209912/11/23 12/12/24 History [Genteal Tears 0.1%-0.2%-0.3%] Donepezil [Aricept] 10 mg PO HS@209912/11/23 12/12/24 History Escitalopram [Lexapro] 10 mg PO DAILY@79912/11/23 12/12/24 History Famotidine [Pepcid] 40 mg PO DAILY@0800 12/11/23 12/12/24 History Ferrous Sulfate [Iron (65 MG 325 mg PO DAILY@0800 12/11/23 12/12/24 History Elemental)] L.acidoph,Paracasei, B.lactis 1 cap PO BID@0800,1700 12/11/23 12/12/24 History [Probiotic] Magnesium Hydroxide [Milk of 7,200 mg PO Q48H PRN 12/11/23 12/12/24 History Magnesia Concentrate] Na Phos,M-B/Na Phos,Di-Ba [Fleet 133 ml RECTAL DAILY PRN 12/11/23 12/12/24 History Adult] Ondansetron [Zofran] 4 mg PO Q6H PRN 12/11/23 12/12/24 History bisacodyL [Dulcolax] 10 mg RECTAL DAILY PRN 12/11/23 12/12/24 History Aspirin 81 mg PO DAILY@0800 01/05/24 12/12/24 History Glucerna Shake 120 ml PO DAILY@0800 01/05/24 12/12/24 History INSULIN ASPART (NovoLOG) [NovoLOG See Protocol SQ 01/05/24 12/12/24 History (formulary)] ACHS@07,11,1630,2130 Acetaminophen Tab [Tylenol] 650 mg PO Q4H PRN 11/23/24 12/12/24 History Sennosides [Senokot] 8.6 mg PO BID@0800,1700 11/23/24 12/12/24 History Cyanocobalamin [Vitamin B-12] 1,000 mcg PO DAILY@0800 12/12/24 12/12/24 History Folic Acid 1 mg PO DAILY@0800 12/12/24 12/12/24 History Multivitamins, Thera [Multivitamin 1 tab PO DAILY@0800 12/12/24 12/12/24 History (formulary)] Thiamine [Vitamin B-1] 100 mg PO DAILY@0800 12/12/24 12/12/24 History Allergies Allergy/AdvReac Type Severity Reaction Status Date / Time No Known Allergies Allergy Verified 12/12/24 11:12 Physical Exam Vitals: Vital Signs Temp Pulse Pulse Resp BP BP Pulse Ox 12/12/24 07:37 97.6 F 65 17 116/74 98 12/12/24 00:26 97.4 F L 60 17 98/62 95 12/11/24 23:15 88 17 101/60 95 12/11/24 21:45 97.8 F 86 17 120/67 96 12/11/24 20:04 99.3 F 114 H 19 99/64 91 L 12/11/24 19:12 100.2 F H 12/11/24 19:06 111 H 20 105/69 96 12/11/24 18:22 100/66 12/11/24 18:15 98.3 F 115 H 18 87/58 95 Intake and Output 12/11/24 12/12/24 12/12/24 22:59 06:59 14:59 Other: Voiding Method Diaper Incontinent # Voids 0 Weight 54.431 kg 54.431 kg GENERAL DESCRIPTION: Elderly male lying in bed, no distress. No tachypnea or accessory muscle of respiration use. HEENT: Shows Pallor , no scleral icterus. Oral mucous membrane is dry. NECK: Trachea central, no thyromegaly. LUNGS: Unlabored breathing. Clear to auscultation anteriorly. No wheeze or crackle. HEART: S1, S2, regular rate and rhythm. No loud murmur ABDOMEN: Soft, no tenderness , guarding or rigidity, no organomegaly EXTREMITIES: No edema of feet. SKIN: No rash, no masses palpable. NEUROLOGICAL: The patient is awake,, mood and affect normal. Results CBC & Chem 7: 12/13/24 03:22 12/13/24 03:22 Labs: Abnormal Lab Results - Last 24 Hours (Table) 12/11/24 12/11/24 12/11/24 Range/Units 18:44 18:44 18:44 WBC 23.4 H (3.8-10.6) k/uL RBC 3.95 L (4.30-5.90) m/uL Hgb 12.5 L (13.0-17.5) gm/dL Neutrophils # 21.1 H (1.3-7.7) k/uL APTT 21.1 L (22.0-30.0) sec Sodium 130 L (137-145) mmol/L Potassium 5.3 H (3.5-5.1) mmol/L Carbon Dioxide 17 L (22-30) mmol/L BUN 38 H (9-20) mg/dL Creatinine 2.46 H (0.66-1.25) mg/dL Glucose 219 H (74-99) mg/dL POC Glucose (mg/dL) (70-110) mg/dL Plasma Lactic Acid Zander (0.7-2.0) mmol/L Albumin 2.8 L (3.5-5.0) g/dL Urine Protein (Negative) Urine Blood (Negative) Ur Leukocyte Esterase (Negative) Urine RBC (0-5) /hpf Urine WBC (0-5) /hpf Urine WBC Clumps (None) /hpf 12/11/24 12/11/24 12/12/24 Range/Units 18:44 20:32 07:21 WBC (3.8-10.6) k/uL RBC (4.30-5.90) m/uL Hgb (13.0-17.5) gm/dL Neutrophils # (1.3-7.7) k/uL APTT (22.0-30.0) sec Sodium (137-145) mmol/L Potassium (3.5-5.1) mmol/L Carbon Dioxide (22-30) mmol/L BUN (9-20) mg/dL Creatinine (0.66-1.25) mg/dL Glucose (74-99) mg/dL POC Glucose (mg/dL) 197 H (70-110) mg/dL Plasma Lactic Acid Zander 2.8 H* (0.7-2.0) mmol/L Albumin (3.5-5.0) g/dL Urine Protein 2+ H (Negative) Urine Blood Moderate H (Negative) Ur Leukocyte Esterase Large H (Negative) Urine RBC >182 H (0-5) /hpf Urine WBC >182 H (0-5) /hpf Urine WBC Clumps Many H (None) /hpf 12/12/24 Range/Units 11:26 WBC (3.8-10.6) k/uL RBC (4.30-5.90) m/uL Hgb (13.0-17.5) gm/dL Neutrophils # (1.3-7.7) k/uL APTT (22.0-30.0) sec Sodium (137-145) mmol/L Potassium (3.5-5.1) mmol/L Carbon Dioxide (22-30) mmol/L BUN (9-20) mg/dL Creatinine (0.66-1.25) mg/dL Glucose (74-99) mg/dL POC Glucose (mg/dL) 228 H (70-110) mg/dL Plasma Lactic Acid Zander (0.7-2.0) mmol/L Albumin (3.5-5.0) g/dL Urine Protein (Negative) Urine Blood (Negative) Ur Leukocyte Esterase (Negative) Urine RBC (0-5) /hpf Urine WBC (0-5) /hpf Urine WBC Clumps (None) /hpf Assessment and Plan (1) Sepsis Current Visit: Yes Status: Acute Code(s): A41.9 - SEPSIS, UNSPECIFIED ORGANISM SNOMED Code(s): 88422240 (2) UTI (urinary tract infection) Current Visit: Yes Status: Acute Code(s): N39.0 - URINARY TRACT INFECTION, SITE NOT SPECIFIED SNOMED Code(s): 49125088 Plan: 1patient presented hospital with sepsis in this patient who did have fever elevated white count meeting currently for SIRS source is likely urinary concern for possible complicated UTI as the patient did have elevated creatinine ques tion possible obstructive uropathy last 2 urine culture just recently did grew Klebsiella that was sensitive to ceftriaxone 2-discontinue Zosyn 3-start the patient Rocephin 2 g daily 4-check ultrasound of the kidney bladder area to make sure no evidence of any obstructive uropathy We will follow on clinical condition and cultures to further adjust medication if needed Thank you for this consultation we will follow the patient along with you Dictation was produced using [employer] dictation software. please excuse any grammatical, word or spelling errors. Time with Patient: Greater than 30
--- NOTE | 2024-12-13 08:07 | US ---
EXAMINATION TYPE: US kidneys/renal and bladder DATE OF EXAM: 12/13/2024 COMPARISON: Renal ultrasound 11/26/2024, 03/19/2022, CT abdomen and pelvis 10/15/2020 CLINICAL INDICATION: Male, 89 years old with history of recurrent UTI/elevated creatinine; Abnormal l abs. TECHNIQUE: Grayscale imaging of the bilateral kidneys and urinary bladder: FINDINGS: EXAM MEASUREMENTS: Right Kidney: 12.8 x 6.0 x 5.7 cm Left Kidney: 8.2 x 4.3 x 4.5 cm Right Kidney: Hydronephrosis Left Kidney: Hydronephrosis. Appears smaller than contralateral kidney. Inferior lateral anechoic l esion - 1.0 x 1.1 x 0.9 cm Bladder: Posterior echoes Bilateral Jets not seen Mild bilateral hydronephrosis. No nephrolithiasis is seen. No solid renal masses are identified. Lef t renal inferior lateral simple cyst. Cortical medullary differentiation is maintained. Small left ki dney redemonstrated. Urinary bladder demonstrates posterior echoes without color-flow. IMPRESSION: 1. Mild bilateral hydronephrosis redemonstrated. 2. Small-sized left kidney compared to the right redemonstrated. 3. Nonspecific layering debris within urinary bladder. Correlate with urinalysis. [facility], , 12/13/2024 8:05 AM
[2024-12-13] MEDS: CHOLECALCIFEROL 25 MCG (1000 IU) TABLET PO SCH (08:11)
[2024-12-13] MEDS: FAMOTIDINE 20 MG TAB PO SCH (08:11)
[2024-12-13] MEDS: MULTIVITAMINS, THERA 1 EACH TAB PO SCH (08:11)
[2024-12-13] MEDS: FOLIC ACID 1 MG TAB PO SCH (08:11)
[2024-12-13] MEDS: CYANOCOBALAMIN 500 MCG TAB PO SCH (08:11)
[2024-12-13 08:51] LABS: Blood Urea Nitrogen 35.9 mg/dL (9.0-27.0); Calcium 8.1 mg/dL (8.7-10.3); Carbon Dioxide 20.9 mmol/L (21.6-31.8); Chloride 106 mmol/L (96-109); Glucose 147 mg/dL (70-110); Potassium 4.7 mmol/L (3.5-5.5); Sodium 137 mmol/L (135-145)
[2024-12-13 08:52] LABS: Basophils # (A) 0.04 X 10*3/uL (0.00-0.10); Basophils % (A) 0.3 %; Eosinophils # (A) 0.08 X 10*3/uL (0.04-0.35); Eosinophils % (A) 0.5 %; HCT 34.8 % (39.6-50.0); HGB 10.7 g/dL (13.0-17.0); Lymphocytes % (A) 12.1 %; MCH 31.1 pg (27.0-32.0); MCHC 30.7 g/dL (32.0-37.0); MCV 101.2 FL (80.0-97.0); Mean Platelet Volume 10.2 FL (9.5-12.2); Monocytes # (A) 1.09 X 10*3/uL (0.20-1.00); NRBC Per 100 WBC 0 X 10*3/uL (0.00-0.01); Neutrophils # (A) 12.48 X 10*3/uL (1.80-7.70); Neutrophils % (A) 79.7 %; Platelet Count 231 X 10*3/uL (140-440); RBC 3.44 X 10*6/uL (4.40-5.60); RDW 14.2 % (11.5-14.5); WBC 15.65 X 10*3/uL (4.50-10.00)
[2024-12-13 11:44] LABS: Glucose,Whole Blood 135 mg/dL (70-110)
[2024-12-13] MEDS: VANCOMYCIN 125 MG CAPSULE PO SCH (13:22)
--- NOTE | 2024-12-13 14:23 | P.PN ---
Subjective Progress Note Date: 12/13/24 Principal diagnosis: Reason for follow-up is UTI and C. difficile colitis Patient is a 89-year-old male with a past medical history significant for coronary artery disease CVA TIA diabetes mellitus hypertension hyperlipidemia [place] prostate disorder presenting to the hospital for evaluation of fever as well as weakness, lethargy from a local prison concerning for UTI diagnosed with a UTI also have some diarrhea and stool for significant back positive. On today's evaluation that is 12/13/2024,the patient remains to be afebrile, patient is on room air not requiring supplemental oxygen and denies any shortness of breath no chest pain or cough.Patient denies having any nausea or vomiting, no abdominal pain and no worsening diarrhea reported by the nursing staff has been complaining of mostly weakness. Patient white count is down to 15.65, creatinine is 2.7 stool for C. difficile is positive Objective - Vital Signs Vital signs: Vital Signs Temp 98.5 F 12/13/24 07:25 Pulse 79 12/13/24 07:25 Resp 16 12/13/24 07:25 BP 147/80 12/13/24 07:25 Pulse Ox 96 12/13/24 07:25 FiO2 Intake & Output 12/12/24 12/13/24 12/13/24 18:59 06:59 18:59 Weight 54.431 kg Other: Voiding Method Incontinent Diaper # Voids 4 3 1 # Bowel Movements 1 1 1 - Exam GENERAL DESCRIPTION: An elderly male lying in bed in no distress RESPIRATORY SYSTEM: Unlabored breathing , decreased breath sounds at bases HEART: S1 S2 regular rate and rhythm , ABDOMEN: Soft , no tenderness EXTREMITIES: No edema feet - Labs CBC & Chem 7: 12/13/24 03:22 12/13/24 03:22 Labs: Abnormal Lab Results - Last 24 Hours (Table) 12/12/24 12/12/24 12/12/24 Range/Units 11:58 11:58 17:03 WBC 19.8 H (3.8-10.6) k/uL RBC 3.30 L (4.30-5.90) m/uL Hgb 10.4 L (13.0-17.5) gm/dL Hct 33.7 L (39.0-53.0) % MCV 102.3 H (80.0-100.0) fL MCHC 30.7 L (31.0-37.0) g/dL Immature Gran # (0.00-0.04) X 10*3/uL Neutrophils # 17.5 H (1.3-7.7) k/uL Monocytes # (0.20-1.00) X 10*3/uL Sodium 132 L (137-145) mmol/L Carbon Dioxide 21 L (22-30) mmol/L BUN 40 H (9-20) mg/dL Creatinine 2.74 H (0.66-1.25) mg/dL Est GFR (CKD-EPI) (>=60) Glucose 208 H (74-99) mg/dL POC Glucose (mg/dL) 146 H (70-110) mg/dL Hemoglobin A1c (<=6.0) % Calcium 8.1 L (8.4-10.2) mg/dL C. difficile (EIA) Intrp (Negative) 12/12/24 12/12/24 12/13/24 Range/Units 19:58 21:37 03:22 WBC (3.8-10.6) k/uL RBC (4.30-5.90) m/uL Hgb (13.0-17.5) gm/dL Hct (39.0-53.0) % MCV (80.0-100.0) fL MCHC (31.0-37.0) g/dL Immature Gran # (0.00-0.04) X 10*3/uL Neutrophils # (1.3-7.7) k/uL Monocytes # (0.20-1.00) X 10*3/uL Sodium (137-145) mmol/L Carbon Dioxide (22-30) mmol/L BUN (9-20) mg/dL Creatinine (0.66-1.25) mg/dL Est GFR (CKD-EPI) (>=60) Glucose (74-99) mg/dL POC Glucose (mg/dL) 191 H 183 H (70-110) mg/dL Hemoglobin A1c 6.8 H (<=6.0) % Calcium (8.4-10.2) mg/dL C. difficile (EIA) Intrp (Negative) 12/13/24 12/13/24 12/13/24 Range/Units 03:22 03:22 03:40 WBC 15.65 H (3.8-10.6) k/uL RBC 3.44 L (4.30-5.90) m/uL Hgb 10.7 L (13.0-17.5) gm/dL Hct 34.8 L (39.0-53.0) % MCV 101.2 H (80.0-100.0) fL MCHC 30.7 L (31.0-37.0) g/dL Immature Gran # 0.06 H (0.00-0.04) X 10*3/uL Neutrophils # 12.48 H (1.3-7.7) k/uL Monocytes # 1.09 H (0.20-1.00) X 10*3/uL Sodium (137-145) mmol/L Carbon Dioxide 20.9 L (22-30) mmol/L BUN 35.9 H (9-20) mg/dL Creatinine 2.7 H (0.66-1.25) mg/dL Est GFR (CKD-EPI) 22 L (>=60) Glucose 147 H (74-99) mg/dL POC Glucose (mg/dL) (70-110) mg/dL Hemoglobin A1c (<=6.0) % Calcium 8.1 L (8.4-10.2) mg/dL C. difficile (EIA) Intrp Positive A (Negative) 12/13/24 12/13/24 Range/Units 06:18 11:43 WBC (3.8-10.6) k/uL RBC (4.30-5.90) m/uL Hgb (13.0-17.5) gm/dL Hct (39.0-53.0) % MCV (80.0-100.0) fL MCHC (31.0-37.0) g/dL Immature Gran # (0.00-0.04) X 10*3/uL Neutrophils # (1.3-7.7) k/uL Monocytes # (0.20-1.00) X 10*3/uL Sodium (137-145) mmol/L Carbon Dioxide (22-30) mmol/L BUN (9-20) mg/dL Creatinine (0.66-1.25) mg/dL Est GFR (CKD-EPI) (>=60) Glucose (74-99) mg/dL POC Glucose (mg/dL) 136 H 135 H (70-110) mg/dL Hemoglobin A1c (<=6.0) % Calcium (8.4-10.2) mg/dL C. difficile (EIA) Intrp (Negative) Microbiology - Last 24 Hours (Table) 12/11/24 19:00 Blood Culture - Preliminary Blood 12/11/24 18:45 Blood Culture - Preliminary Blood Assessment and Plan (1) Sepsis Current Visit: Yes Status: Acute Code(s): A41.9 - SEPSIS, UNSPECIFIED ORGANISM SNOMED Code(s): 93955733 (2) UTI (urinary tract infection) Current Visit: Yes Status: Acute Code(s): N39.0 - URINARY TRACT INFECTION, SITE NOT SPECIFIED SNOMED Code(s): 79936250 Plan: 1patient presented hospital with sepsis in this patient who did have fever elevated white count meeting currently for SIRS source is likely urinary concern for possible complicated UTI as the patient did have elevated creatinine question possible obstructive uropathy last 2 urine culture just recently did grew Klebsiella that was sensitive to ceftriaxone 2-patient is also developed diarrhea stool for C. difficile is positive, patient started on oral vancomycin 3-unfortunately no urine culture were done, UA and urine culture has been requested, if UA has normalized may consider discontinuation of antibiotic Dictation was produced using [employer] dictation software. please excuse any grammatical, word or spelling errors. Time with Patient: Less than 30
[2024-12-13 16:56] LABS: Glucose,Whole Blood 212 mg/dL (70-110)
[2024-12-13 19:14] LABS: Appearance,Urine Cloudy (Clear); Bacteria,Urine Rare /hpf; Bilirubin,Urine Negative (Negative); Blood,Urine Moderate (Negative); Budding Yeast,Urine Moderate /hpf; Color,Urine Colorless; Glucose,Urine (UA) 1+ (Negative); Ketones,Urine Negative (Negative); Leukocyte Esterase,Urine Large (Negative); Nitrite,Urine Negative (Negative); Protein,Urine Trace (Negative); RBC,Urine 4 /hpf (0-5); Urobilinogen,Urine <2.0 mg/dL (<2.0); WBC,Urine >182 /hpf (0-5)
[2024-12-13 20:53] LABS: Glucose,Whole Blood 141 mg/dL (70-110)
--- NOTE | 2024-12-14 05:21 | P.PN ---
Subjective Progress Note Date: 12/13/24 This is a pleasant 89-year-old male who is a permanent resident at [facility]. Patient has a past medical history significant for coronary artery disease with prior cardiac stenting, stroke, diabetes mellitus, hypertension, hyperlipidemia, sleep apnea, chronic kidney disease stage III, AAA with repair. Patient comes in with complaints of fever and abdominal pain from alf. He is alert x 2 currently. He is having some mild abdominal discomfort on examination. The patient does have a known history of chronic hydronephrosis and also frequent urinary tract infections most recently back in November [id number] with positive urine culture revealing Klebsiella pneumonia with resistance to ampicillin. Patient this admission had a significantly abnormal urinalysis 2+ protein moderate blood large leukocyte esterase and greater than 182 RBC WBC with many WBC clumps. Urine is brown and turbid in color. White blood cell count was found to be elevated at 23.4 hemoglobin 12.5, sodium of 130 potassium of 5.3, BUN of 38 creatinine of 2.46. Patient also had elevated lactic acid which is since normalized. Patient was admitted to the hospital under internal medicine with a consult placed to infectious disease for the sepsis. Patient also reports an episode of diarrhea over the alf. He is started empirically on IV dose and a urine culture has been ordered and pending at this time. Cultures have also been taken and pending. 12/13/2024 Patient is seen in follow-up today continued on IV antibiotics with infectious disease following. Patient being treated with urinary tract infection and has had multiple rounds of antibiotics over the last few months and was having episodes of diarrhea and loose stool, tested positive for C. difficile. Given patient's kidney functions with chronic kidney disease, will initiate titrated dose of Vanco oral per ID recommendations. Patient is afebrile with no reports of chest pain or shortness of breath. Patient reports some abdominal discomfort and continued multiple loose stools. Patient reports to feeling exhausted although patient mostly sleeps throughout the day. Patient resides at [facility] with plans on returning there at discharge. Review of systems: Constitutional: reports of fatigue, no fever, or chills Cardiovascular: No reports of chest pain or palpitations Respiratory: No reports of shortness of breath or cough GI: No reports of nausea, vomiting, reports multiple episodes of diarrhea : No reports of dysuria or retention Neurovascular: reports of generalized weakness All medications have been reviewed PHYSICAL EXAMINATION: GENERAL: The patient is asleep although arousable, alert and oriented x2, not in any acute distress. Well developed, elderly appearing, ill-appearing, thin built. HEENT: Pupils are round and equally reacting to light. EOMI. No scleral icterus. No conjunctival pallor. Normocephalic, atraumatic. No pharyngeal erythema. No thyromegaly. CARDIOVASCULAR: S1 and S2 muffled PULMONARY: Diminished breath sounds bilaterally otherwise chest is clear to auscultation, no wheezing or crackles. ABDOMEN: Soft, mild suprapubic tenderness, nondistended, normoactive bowel sounds. No palpable organomegaly. MUSCULOSKELETAL: No joint swelling or deformity. EXTREMITIES: No cyanosis, clubbing, or pedal edema. NEUROLOGICAL: Gross neurological examination did not reveal any focal deficits. Diffusely weak SKIN: No rashes. Pale Assessment: Acute urinary tract infection with sepsis present on admission Leukocytosis secondary to above Lactic acidosis, improved Diarrhea, positive for C. 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 Continue ceftriaxone for now Patient was having multiple episodes of diarrhea and C. difficile was obtained a nd noted to be positive. Patient being started on reduced dose of 250 mg of Vanco 4 times daily given patient's kidney functions Urine culture apparently was initially not done and has been ordered and pending Home medications reviewed and resumed as appropriate Continue Accu-Cheks ACHS and sliding scale insulin and will adjust insulins accordingly Check bladder scan monitor for urinary retention Monitor electrolytes and renal function Continue normal saline at 75 mls/hr and follow-up on repeat labs. PT OT consultation and social work consultation with return to [facility] on discharge. The impression and plan of care has been dictated by Carlene Gallegos, Nurse Practitioner as directed. Dr. Curtis MD I have performed a history and physical examination and medical decision making of this patient, discussed the same with the dictator, and agree with the dictators assessment and plan as written, documented as a scribe. Based on total visit time, I have performed more than 50% of this visit. Objective - Vital Signs Vital signs: Vital Signs Temp 98.5 F 12/13/24 07:25 Pulse 79 12/13/24 07:25 Resp 16 12/13/24 07:25 BP 147/80 12/13/24 07:25 Pulse Ox 96 12/13/24 07:25 FiO2 Intake & Output 12/12/24 12/13/24 12/13/24 18:59 06:59 18:59 Weight 54.431 kg Other: Voiding Method Incontinent Diaper # Voids 4 3 # Bowel Movements 1 1 - Labs CBC & Chem 7: 12/13/24 03:22 12/13/24 03:22 Labs: Abnormal Lab Results - Last 24 Hours (Table) 12/12/24 12/12/24 12/12/24 Range/Units 11:26 11:58 11:58 WBC 19.8 H (3.8-10.6) k/uL RBC 3.30 L (4.30-5.90) m/uL Hgb 10.4 L (13.0-17.5) gm/dL Hct 33.7 L (39.0-53.0) % MCV 102.3 H (80.0-100.0) fL MCHC 30.7 L (31.0-37.0) g/dL Immature Gran # (0.00-0.04) X 10*3/uL Neutrophils # 17.5 H (1.3-7.7) k/uL Monocytes # (0.20-1.00) X 10*3/uL Sodium 132 L (137-145) mmol/L Carbon Dioxide 21 L (22-30) mmol/L BUN 40 H (9-20) mg/dL Creatinine 2.74 H (0.66-1.25) mg/dL Est GFR (CKD-EPI) (>=60) Glucose 208 H (74-99) mg/dL POC Glucose (mg/dL) 228 H (70-110) mg/dL Calcium 8.1 L (8.4-10.2) mg/dL C. difficile (EIA) Intrp (Negative) 12/12/24 12/12/24 12/12/24 Range/Units 17:03 19:58 21:37 WBC (3.8-10.6) k/uL RBC (4.30-5.90) m/uL Hgb (13.0-17.5) gm/dL Hct (39.0-53.0) % MCV (80.0-100.0) fL MCHC (31.0-37.0) g/dL Immature Gran # (0.00-0.04) X 10*3/uL Neutrophils # (1.3-7.7) k/uL Monocytes # (0.20-1.00) X 10*3/uL Sodium (137-145) mmol/L Carbon Dioxide (22-30) mmol/L BUN (9-20) mg/dL Creatinine (0.66-1.25) mg/dL Est GFR (CKD-EPI) (>=60) Glucose (74-99) mg/dL POC Glucose (mg/dL) 146 H 191 H 183 H (70-110) mg/dL Calcium (8.4-10.2) mg/dL C. difficile (EIA) Intrp (Negative) 12/13/24 12/13/24 12/13/24 Range/Units 03:22 03:22 03:40 WBC 15.65 H (3.8-10.6) k/uL RBC 3.44 L (4.30-5.90) m/uL Hgb 10.7 L (13.0-17.5) gm/dL Hct 34.8 L (39.0-53.0) % MCV 101.2 H (80.0-100.0) fL MCHC 30.7 L (31.0-37.0) g/dL Immature Gran # 0.06 H (0.00-0.04) X 10*3/uL Neutrophils # 12.48 H (1.3-7.7) k/uL Monocytes # 1.09 H (0.20-1.00) X 10*3/uL Sodium (137-145) mmol/L Carbon Dioxide 20.9 L (22-30) mmol/L BUN 35.9 H (9-20) mg/dL Creatinine 2.7 H (0.66-1.25) mg/dL Est GFR (CKD-EPI) 22 L (>=60) Glucose 147 H (74-99) mg/dL POC Glucose (mg/dL) (70-110) mg/dL Calcium 8.1 L (8.4-10.2) mg/dL C. difficile (EIA) Intrp Positive A (Negative) 12/13/24 Range/Units 06:18 WBC (3.8-10.6) k/uL RBC (4.30-5.90) m/uL Hgb (13.0-17.5) gm/dL Hct (39.0-53.0) % MCV (80.0-100.0) fL MCHC (31.0-37.0) g/dL Immature Gran # (0.00-0.04) X 10*3/uL Neutrophils # (1.3-7.7) k/uL Monocytes # (0.20-1.00) X 10*3/uL Sodium (137-145) mmol/L Carbon Dioxide (22-30) mmol/L BUN (9-20) mg/dL Creatinine (0.66-1.25) mg/dL Est GFR (CKD-EPI) (>=60) Glucose (74-99) mg/dL POC Glucose (mg/dL) 136 H (70-110) mg/dL Calcium (8.4-10.2) mg/dL C. difficile (EIA) Intrp (Negative) Microbiology - Last 24 Hours (Table) 12/11/24 19:00 Blood Culture - Preliminary Blood 12/11/24 18:45 Blood Culture - Preliminary Blood
[2024-12-14 06:22] LABS: Glucose,Whole Blood 140 mg/dL (70-110)
[2024-12-14] MEDS: FAMOTIDINE 20 MG TAB PO SCH (08:02)
[2024-12-14 10:46] LABS: Basophils # (A) 0.04 X 10*3/uL (0.00-0.10); Basophils % (A) 0.4 %; Eosinophils # (A) 0.19 X 10*3/uL (0.04-0.35); Eosinophils % (A) 1.8 %; HCT 32.3 % (39.6-50.0); HGB 9.7 g/dL (13.0-17.0); Lymphocytes # (A) 1.81 X 10*3/uL (0.90-5.00); Lymphocytes % (A) 17.5 %; MCH 30.8 pg (27.0-32.0); MCV 102.5 FL (80.0-97.0); Mean Platelet Volume 10.4 FL (9.5-12.2); Monocytes # (A) 0.97 X 10*3/uL (0.20-1.00); Monocytes % (A) 9.4 %; NRBC Per 100 WBC 0 X 10*3/uL (0.00-0.01); Neutrophils # (A) 7.26 X 10*3/uL (1.80-7.70); Neutrophils % (A) 70.4 %; Platelet Count 241 X 10*3/uL (140-440); RBC 3.15 X 10*6/uL (4.40-5.60); WBC 10.32 X 10*3/uL (4.50-10.00)
[2024-12-14 10:48] LABS: BUN/Creat Ratio 12.62 Ratio (12.00-20.00); Blood Urea Nitrogen 30.3 mg/dL (9.0-27.0); Calcium 8.1 mg/dL (8.7-10.3); Carbon Dioxide 17.8 mmol/L (21.6-31.8); Chloride 109 mmol/L (96-109); Glucose 131 mg/dL (70-110); Magnesium 1.8 mg/dL (1.5-2.4); Potassium 4.5 mmol/L (3.5-5.5); Sodium 135 mmol/L (135-145)
[2024-12-14 11:10] LABS: Glucose,Whole Blood 212 mg/dL (70-110)
--- NOTE | 2024-12-14 12:19 | P.PN ---
Subjective Progress Note Date: 12/14/24 Principal diagnosis: Reason for follow-up is UTI and C. difficile colitis Patient is a 89-year-old male with a past medical history significant for coronary artery disease CVA TIA diabetes mellitus hypertension hyperlipidemia [place] prostate disorder presenting to the hospital for evaluation of fever as well as weakness, lethargy from a local senior care concerning for UTI diagnosed with a UTI also have some diarrhea and stool for significant back positive. On today's evaluation that is 12/14/2024, the patient continues to be afebrile, the patient is on room air and breathing comfortably, the Pt denies having any chest pain or cough, the patient denies having any abdominal pain no vomiting and no worsening symptoms. Patient was normalized to 10.32 creatinine is 2.4, repeat UA is positive cultures pending Objective - Vital Signs Vital signs: Vital Signs Temp 97.6 F 12/14/24 07:33 Pulse 76 12/14/24 07:33 Resp 18 12/14/24 09:12 BP 167/81 12/14/24 07:33 Pulse Ox 98 12/14/24 07:33 FiO2 Intake & Output 12/13/24 12/14/24 12/14/24 18:59 06:59 18:59 Other: Voiding Method Diaper Diaper Diaper # Voids 4 4 1 # Bowel Movements 3 1 - Exam GENERAL DESCRIPTION: An elderly male lying in bed in no distress RESPIRATORY SYSTEM: Unlabored breathing , decreased breath sounds at bases HEART: S1 S2 regular rate and rhythm , ABDOMEN: Soft , no tenderness EXTREMITIES: No edema feet - Labs CBC & Chem 7: 12/14/24 02:39 12/14/24 02:39 Labs: Abnormal Lab Results - Last 24 Hours (Table) 12/13/24 12/13/24 12/13/24 Range/Units 16:55 18:36 20:52 WBC (4.50-10.00) X 10*3/uL RBC (4.40-5.60) X 10*6/uL Hgb (13.0-17.0) g/dL Hct (39.6-50.0) % MCV (80.0-97.0) FL MCHC (32.0-37.0) g/dL Immature Gran # (0.00-0.04) X 10*3/uL Carbon Dioxide (21.6-31.8) mmol/L BUN (9.0-27.0) mg/dL Creatinine (0.6-1.5) mg/dL Est GFR (CKD-EPI) (>=60) Glucose (70-110) mg/dL POC Glucose (mg/dL) 212 H 141 H (70-110) mg/dL Calcium (8.7-10.3) mg/dL Urine Protein Trace H (Negative) Urine Glucose (UA) 1+ H (Negative) Urine Blood Moderate H (Negative) Ur Leukocyte Esterase Large H (Negative) Urine WBC >182 H (0-5) /hpf Urine WBC Clumps Few H (None) /hpf Urine Bacteria Rare H (None) /hpf Urine Yeast (Budding) Moderate H (None) /hpf 12/14/24 12/14/24 12/14/24 Range/Units 02:39 02:39 06:21 WBC 10.32 H (4.50-10.00) X 10*3/uL RBC 3.15 L (4.40-5.60) X 10*6/uL Hgb 9.7 L (13.0-17.0) g/dL Hct 32.3 L (39.6-50.0) % MCV 102.5 H (80.0-97.0) FL MCHC 30.0 L (32.0-37.0) g/dL Immature Gran # 0.05 H (0.00-0.04) X 10*3/uL Carbon Dioxide 17.8 L (21.6-31.8) mmol/L BUN 30.3 H (9.0-27.0) mg/dL Creatinine 2.4 H (0.6-1.5) mg/dL Est GFR (CKD-EPI) 25 L (>=60) Glucose 131 H (70-110) mg/dL POC Glucose (mg/dL) 140 H (70-110) mg/dL Calcium 8.1 L (8.7-10.3) mg/dL Urine Protein (Negative) Urine Glucose (UA) (Negative) Urine Blood (Negative) Ur Leukocyte Esterase (Negative) Urine WBC (0-5) /hpf Urine WBC Clumps (None) /hpf Urine Bacteria (None) /hpf Urine Yeast (Budding) (None) /hpf 12/14/24 Range/Units 11:08 WBC (4.50-10.00) X 10*3/uL RBC (4.40-5.60) X 10*6/uL Hgb (13.0-17.0) g/dL Hct (39.6-50.0) % MCV (80.0-97.0) FL MCHC (32.0-37.0) g/dL Immature Gran # (0.00-0.04) X 10*3/uL Carbon Dioxide (21.6-31.8) mmol/L BUN (9.0-27.0) mg/dL Creatinine (0.6-1.5) mg/dL Est GFR (CKD-EPI) (>=60) Glucose (70-110) mg/dL POC Glucose (mg/dL) 212 H (70-110) mg/dL Calcium (8.7-10.3) mg/dL Urine Protein (Negative) Urine Glucose (UA) (Negative) Urine Blood (Negative) Ur Leukocyte Esterase (Negative) Urine WBC (0-5) /hpf Urine WBC Clumps (None) /hpf Urine Bacteria (None) /hpf Urine Yeast (Budding) (None) /hpf Microbiology - Last 24 Hours (Table) 12/11/24 19:00 Blood Culture - Preliminary Blood 12/11/24 18:45 Blood Culture - Preliminary Blood Assessment and Plan (1) Sepsis Current Visit: Yes Status: Acute Code(s): A41.9 - SEPSIS, UNSPECIFIED ORGANISM SNOMED Code(s): 78718023 (2) UTI (urinary tract infection) Current Visit: Yes Status: Acute Code(s): N39.0 - URINARY TRACT INFECTION, SITE NOT SPECIFIED SNOMED Code(s): 23354372 Plan: 1patient presented hospital with sepsis in this patient who did have fever elevated white count meeting currently for SIRS source is likely urinary concern for possible complicated UTI as the patient did have elevated creatinine question possible obstructive uropathy last 2 urine culture just recently did grew Klebsiella that was sensitive to ceftriaxone 2-patient is also developed diarrhea stool for C. difficile is positive, patient currently being treated with oral vancomycin 3-repeat UA still positive cultures currently pending continue with Rocephin while waiting for the culture to finalize Dictation was produced using [employer] dictation software. please excuse any grammatical, word or spelling errors. Time with Patient: Less than 30
[2024-12-14 16:23] LABS: Glucose,Whole Blood 216 mg/dL (70-110)
[2024-12-14 20:42] LABS: Glucose,Whole Blood 247 mg/dL (70-110)
--- NOTE | 2024-12-15 05:34 | P.PN ---
Subjective Progress Note Date: 12/14/24 This is a pleasant 89-year-old male who is a permanent resident at [facility]. Patient has a past medical history significant for coronary artery disease with prior cardiac stenting, stroke, diabetes mellitus, hypertension, hyperlipidemia, sleep apnea, chronic kidney disease stage III, AAA with repair. Patient comes in with complaints of fever and abdominal pain from detention. He is alert x 2 currently. He is having some mild abdominal discomfort on examination. The patient does have a known history of chronic hydronephrosis and also frequent urinary tract infections most recently back in November 232024 with positive urine culture revealing Klebsiella pneumonia with resistance to ampicillin. Patient this admission had a significantly abnormal urinalysis 2+ protein moderate blood large leukocyte esterase and greater than 182 RBC WBC with many WBC clumps. Urine is brown and turbid in color. White blood cell count was found to be elevated at 23.4 hemoglobin 12.5, sodium of 130 potassium of 5.3, BUN of 38 creatinine of 2.46. Patient also had elevated lactic acid which is since normalized. Patient was admitted to the hospital under internal medicine with a consult placed to infectious disease for the sepsis. Patient also reports an episode of diarrhea over the detention. He is started empirically on IV dose and a urine culture has been ordered and pending at this time. Cultures have also been taken and pending. 12/13/2024 Patient is seen in follow-up today continued on IV antibiotics with infectious disease following. Patient being treated with urinary tract infection and has had multiple rounds of antibiotics over the last few months and was having episodes of diarrhea and loose stool, tested positive for C. difficile. Given patient's kidney functions with chronic kidney disease, will initiate titrated dose of Vanco oral per ID recommendations. Patient is afebrile with no reports of chest pain or shortness of breath. Patient reports some abdominal discomfort and continued multiple loose stools. Patient reports to feeling exhausted although patient mostly sleeps throughout the day. Patient resides at [facility] with plans on returning there at discharge. 12/14/2024 Patient is seen in follow-up today with no acute overnight issues noted. Patient is maintained on antibiotics with infectious disease following and has been started on vancomycin 250 mg oral 4 times daily for C. difficile. Patient continues to report multiple episodes of diarrhea although reports abdominal pain is improved. Patient is eating and tolerating dieteek. On discharge with no reported nausea or vomiting. Patient is afebrile and white count is trending down. Plan will be for patient to return to [facility]. Review of systems: Constitutional: reports of fatigue, no fever, or chills Cardiovascular: No reports of chest pain or palpitations Respiratory: No reports of shortness of breath or cough GI: No reports of nausea, no vomiting, reports multiple episodes of diarrhea : No reports of dysuria or retention Neurovascular: reports of generalized weakness All medications have been reviewed PHYSICAL EXAMINATION: GENERAL: The patient is awake, alert and oriented x2, not in any acute distress. Well developed, elderly appearing, ill-appearing, thin built. HEENT: Pupils are round and equally reacting to light. EOMI. No scleral icterus. No conjunctival pallor. Normocephalic, atraumatic. No pharyngeal erythema. No thyromegaly. CARDIOVASCULAR: S1 and S2 muffled PULMONARY: Diminished breath sounds bilaterally otherwise chest is clear to auscultation, no wheezing or crackles. ABDOMEN: Soft, mild suprapubic tenderness, nondistended, normoactive bowel sounds. No palpable organomegaly. MUSCULOSKELETAL: No joint swelling or deformity. EXTREMITIES: No cyanosis, clubbing, or pedal edema. NEUROLOGICAL: Gross neurological examination did not reveal any focal deficits. Diffusely weak SKIN: No rashes. Pale Assessment: Acute urinary tract infection with sepsis present on admission Leukocytosis secondary to above Lactic acidosis, improved Diarrhea, positive for C. 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 Continue ceftriaxone for now Patient was having multiple episodes of diarrhea and C. difficile was obtained and noted to be positive. Patient continued on reduced dose of 250 mg of Vanco 4 times daily given patient's kidney functions Urine culture apparently was initially not done and has been ordered and pending Home medications reviewed and resumed as appropriate Continue Accu-Cheks ACHS and sliding scale insulin and will adjust insulins accordingly Check bladder scan monitor for urinary retention Monitor electrolytes and renal function Continue normal saline at 75 mls/hr and follow-up on repeat labs. PT OT consultation and social work consultation with return to [facility] on discharge. The impression and plan of care has been dictated by Carlene Gallegos, Nurse Practitioner as directed. Dr. Curtis MD I have performed a history and physical examination and medical decision making of this patient, discussed the same with the dictator, and agree with the dic tators assessment and plan as written, documented as a scribe. Based on total visit time, I have performed more than 50% of this visit. Ana turner I am so sorry Objective - Vital Signs Vital signs: Vital Signs Temp 97.6 F 12/14/24 07:33 Pulse 76 12/14/24 07:33 Resp 18 12/14/24 09:12 BP 167/81 12/14/24 07:33 Pulse Ox 98 12/14/24 07:33 FiO2 Intake & Output 12/13/24 12/14/24 12/14/24 18:59 06:59 18:59 Other: Voiding Method Diaper Diaper Diaper # Voids 4 4 1 # Bowel Movements 3 1 - Labs CBC & Chem 7: 12/14/24 02:39 12/14/24 02:39 Labs: Abnormal Lab Results - Last 24 Hours (Table) 12/13/24 12/13/24 12/13/24 Range/Units 03:22 11:43 16:55 POC Glucose (mg/dL) 135 H 212 H (70-110) mg/dL Hemoglobin A1c 6.8 H (<=6.0) % Urine Protein (Negative) Urine Glucose (UA) (Negative) Urine Blood (Negative) Ur Leukocyte Esterase (Negative) Urine WBC (0-5) /hpf Urine WBC Clumps (None) /hpf Urine Bacteria (None) /hpf Urine Yeast (Budding) (None) /hpf 12/13/24 12/13/24 12/14/24 Range/Units 18:36 20:52 06:21 POC Glucose (mg/dL) 141 H 140 H (70-110) mg/dL Hemoglobin A1c (<=6.0) % Urine Protein Trace H (Negative) Urine Glucose (UA) 1+ H (Negative) Urine Blood Moderate H (Negative) Ur Leukocyte Esterase Large H (Negative) Urine WBC >182 H (0-5) /hpf Urine WBC Clumps Few H (None) /hpf Urine Bacteria Rare H (None) /hpf Urine Yeast (Budding) Moderate H (None) /hpf Microbiology - Last 24 Hours (Table) 12/11/24 19:00 Blood Culture - Preliminary Blood 12/11/24 18:45 Blood Culture - Preliminary Blood
[2024-12-15 06:13] LABS: Glucose,Whole Blood 136 mg/dL (70-110)
[2024-12-15 10:12] LABS: Basophils # (A) 0.03 X 10*3/uL (0.00-0.10); Basophils % (A) 0.3 %; Eosinophils # (A) 0.23 X 10*3/uL (0.04-0.35); Eosinophils % (A) 2.5 %; HCT 32.6 % (39.6-50.0); HGB 10.3 g/dL (13.0-17.0); Lymphocytes # (A) 1.88 X 10*3/uL (0.90-5.00); Lymphocytes % (A) 20.7 %; MCH 31.6 pg (27.0-32.0); MCHC 31.6 g/dL (32.0-37.0); Mean Platelet Volume 10.1 FL (9.5-12.2); Monocytes # (A) 0.81 X 10*3/uL (0.20-1.00); Monocytes % (A) 8.9 %; NRBC Per 100 WBC 0 X 10*3/uL (0.00-0.01); Neutrophils % (A) 67.3 %; Platelet Count 251 X 10*3/uL (140-440); RBC 3.26 X 10*6/uL (4.40-5.60); RDW 13.7 % (11.5-14.5); WBC 9.08 X 10*3/uL (4.50-10.00)
[2024-12-15 10:16] LABS: BUN/Creat Ratio 11.67 Ratio (12.00-20.00); Blood Urea Nitrogen 24.5 mg/dL (9.0-27.0); Calcium 8.4 mg/dL (8.7-10.3); Chloride 110 mmol/L (96-109); Glucose 143 mg/dL (70-110); Potassium 4.5 mmol/L (3.5-5.5); Sodium 138 mmol/L (135-145)
[2024-12-15 12:30] LABS: Glucose,Whole Blood 232 mg/dL (70-110)
--- NOTE | 2024-12-15 12:52 | P.PN ---
Subjective Progress Note Date: 12/15/24 Principal diagnosis: Reason for follow-up is UTI and C. difficile colitis Patient is a 89-year-old male with a past medical history significant for coronary artery disease CVA TIA diabetes mellitus hypertension hyperlipidemia [place] prostate disorder presenting to the hospital for evaluation of fever as well as weakness, lethargy from a local jail concerning for UTI diagnosed with a UTI also have some diarrhea and stool for significant back positive. On today's evaluation that is 12/15/2024, patient did not have any fever and denies any chills, patient is breathing comfortably on room air, patient with no chest pain or cough patient did not have any abdominal pain nausea vomiting and did have 1 loose stools as reported by the nurse aide. Patient white count is normalized to 9.08, creatinine is 2.1 blood cultures currently pending Objective - Vital Signs Vital signs: Vital Signs Temp 97.6 F 12/15/24 07:56 Pulse 70 12/15/24 07:56 Resp 18 12/15/24 07:56 BP 164/79 12/15/24 07:56 Pulse Ox 97 12/15/24 07:56 FiO2 Intake & Output 12/14/24 12/15/24 12/15/24 18:59 06:59 18:59 Other: Voiding Method Diaper Diaper # Voids 1 1 1 # Bowel Movements 1 1 - Exam GENERAL DESCRIPTION: An elderly male lying in bed in no distress RESPIRATORY SYSTEM: Unlabored breathing , decreased breath sounds at bases HEART: S1 S2 regular rate and rhythm , ABDOMEN: Soft , no tenderness EXTREMITIES: No edema feet - Labs CBC & Chem 7: 12/15/24 04:21 12/15/24 04:21 Labs: Abnormal Lab Results - Last 24 Hours (Table) 12/14/24 12/14/24 12/15/24 Range/Units 16:22 20:41 04:21 RBC 3.26 L (4.40-5.60) X 10*6/uL Hgb 10.3 L (13.0-17.0) g/dL Hct 32.6 L (39.6-50.0) % MCV 100.0 H (80.0-97.0) FL MCHC 31.6 L (32.0-37.0) g/dL Chloride (96-109) mmol/L Carbon Dioxide (21.6-31.8) mmol/L Creatinine (0.6-1.5) mg/dL Est GFR (CKD-EPI) (>=60) BUN/Creatinine Ratio (12.00-20.00) Ratio Glucose (70-110) mg/dL POC Glucose (mg/dL) 216 H 247 H (70-110) mg/dL Calcium (8.7-10.3) mg/dL 12/15/24 12/15/24 12/15/24 Range/Units 04:21 06:12 12:28 RBC (4.40-5.60) X 10*6/uL Hgb (13.0-17.0) g/dL Hct (39.6-50.0) % MCV (80.0-97.0) FL MCHC (32.0-37.0) g/dL Chloride 110 H (96-109) mmol/L Carbon Dioxide 20.0 L (21.6-31.8) mmol/L Creatinine 2.1 H (0.6-1.5) mg/dL Est GFR (CKD-EPI) 30 L (>=60) BUN/Creatinine Ratio 11.67 L (12.00-20.00) Ratio Glucose 143 H (70-110) mg/dL POC Glucose (mg/dL) 136 H 232 H (70-110) mg/dL Calcium 8.4 L (8.7-10.3) mg/dL Microbiology - Last 24 Hours (Table) 12/11/24 19:00 Blood Culture - Preliminary Blood 12/11/24 18:45 Blood Culture - Preliminary Blood 12/13/24 18:36 Urine Culture - Final Urine,Voided Assessment and Plan (1) Sepsis Current Visit: Yes Status: Acute Code(s): A41.9 - SEPSIS, UNSPECIFIED ORGANISM SNOMED Code(s): 21918458 (2) UTI (urinary tract infection) Current Visit: Yes Status: Acute Code(s): N39.0 - URINARY TRACT INFECTION, SITE NOT SPECIFIED SNOMED Code(s): 02462833 Plan: 1patient presented hospital with sepsis in this patient who did have fever elevated white count meeting currently for SIRS source is likely urinary concern for possible complicated UTI as the patient did have elevated creatinine question possible obstructive uropathy last 2 urine culture just recently did grew Klebsiella that was sensitive to ceftriaxone 2-patient is also developed diarrhea stool for C. difficile is positive, while patient started on oral vancomycin diarrhea has seemed to improved 3-repeat UA still positive, urine cultures currently pending patient will be treated with the Rocephin while waiting for the culture to finalize Dictation was produced using [email or web address] dictation software. please excuse any grammatical, word or spelling errors. Time with Patient: Less than 30
[2024-12-15 17:05] LABS: Glucose,Whole Blood 232 mg/dL (70-110)
--- NOTE | 2024-12-15 19:53 | P.PN ---
Subjective Progress Note Date: 12/15/24 This is a pleasant 89-year-old male who is a permanent resident at [facility]. Patient has a past medical history significant for coronary artery disease with prior cardiac stenting, stroke, diabetes mellitus, hypertension, hyperlipidemia, sleep apnea, chronic kidney disease stage III, AAA with repair. Patient comes in with complaints of fever and abdominal pain from fdc. He is alert x 2 currently. He is having some mild abdominal discomfort on examination. The patient does have a known history of chronic hydronephrosis and also frequent urinary tract infections most recently back in November 232024 with positive urine culture revealing Klebsiella pneumonia with resistance to ampicillin. Patient this admission had a significantly abnormal urinalysis 2+ protein moderate blood large leukocyte esterase and greater than 182 RBC WBC with many WBC clumps. Urine is brown and turbid in color. White blood cell count was found to be elevated at 23.4 hemoglobin 12.5, sodium of 130 potassium of 5.3, BUN of 38 creatinine of 2.46. Patient also had elevated lactic acid which is since normalized. Patient was admitted to the hospital under internal medicine with a consult placed to infectious disease for the sepsis. Patient also reports an episode of diarrhea over the fdc. He is started empirically on IV dose and a urine culture has been ordered and pending at this time. Cultures have also been taken and pending. 12/13/2024 Patient is seen in follow-up today continued on IV antibiotics with infectious disease following. Patient being treated with urinary tract infection and has had multiple rounds of antibiotics over the last few months and was having episodes of diarrhea and loose stool, tested positive for C. difficile. Given patient's kidney functions with chronic kidney disease, will initiate titrated dose of Vanco oral per ID recommendations. Patient is afebrile with no reports of chest pain or shortness of breath. Patient reports some abdominal discomfort and continued multiple loose stools. Patient reports to feeling exhausted although patient mostly sleeps throughout the day. Patient resides at [facility] with plans on returning there at discharge. 12/14/2024 Patient is seen in follow-up today with no acute overnight issues noted. Patient is maintained on antibiotics with infectious disease following and has been started on vancomycin 250 mg oral 4 times daily for C. difficile. Patient continues to report multiple episodes of diarrhea although reports abdominal pain is improved. Patient is eating and tolerating dieteek. On discharge with no reported nausea or vomiting. Patient is afebrile and white count is trending down. Plan will be for patient to return to [facility]. 12/15/2024 Patient evaluated today in follow up on the medical floor. Patient currently reporting 2 loose BMs overnight per nursing they have been soft. He remains on oral vancomycin. Urine culture is negative. He is not having any nausea today. He is tolerating diet. Review of systems: Constitutional: reports of fatigue, no fever, or chills Cardiovascular: No reports of chest pain or palpitations Respiratory: No reports of shortness of breath or cough GI: No reports of nausea, no vomiting, reports multiple episodes of diarrhea : No reports of dysuria or retention Neurovascular: reports of generalized weakness All medications have been reviewed PHYSICAL EXAMINATION: GENERAL: The patient is awake, alert and oriented x2, not in any acute distress. Well developed, elderly appearing, ill-appearing, thin built. HEENT: Pupils are round and equally reacting to light. EOMI. No scleral icterus. No conjunctival pallor. Normocephalic, atraumatic. No pharyngeal erythema. No thyromegaly. CARDIOVASCULAR: S1 and S2 muffled PULMONARY: Diminished breath sounds bilaterally otherwise chest is clear to auscultation, no wheezing or crackles. ABDOMEN: Soft, mild suprapubic tenderness, nondistended, normoactive bowel sound s. No palpable organomegaly. MUSCULOSKELETAL: No joint swelling or deformity. EXTREMITIES: No cyanosis, clubbing, or pedal edema. NEUROLOGICAL: Gross neurological examination did not reveal any focal deficits. Diffusely weak SKIN: No rashes. Pale Assessment: Acute urinary tract infection with sepsis present on admission Leukocytosis secondary to above Lactic acidosis, improved Diarrhea, positive for C. difficile hyponatremia hypovolemic from infection improving with IV fluids Acute on chronic renal dysfunction acute tubular necrosis from sepsis Chronic bilateral hydronephrosis evaluated by urology prior admission 2 weeks ago Chronic kidney disease stage III baseline creatinine appears to be about 1.9 Coronary artery disease with prior cardiac stenting History of diabetes mellitus type 2 Hypertension Hyperlipidemia History of AAA with endovascular repair and stent graft infrarenal artery Anxiety/depression Sleep apnea Peripheal Vascular disease History of Bladder cancer Dementia GI prophylaxis DVT prophylaxis heparin Subcu NO CODE Plan: Patient is being followed by infectious disease maintained on antibiotics. Urine culture negative. Continue ceftriaxone for now Patient was having multiple episodes of diarrhea and C. difficile was obtained and noted to be positive. Patient continued on reduced dose of 250 mg of Vanco 4 times daily given patient's kidney functions Home medications reviewed and resumed as appropriate Continue Accu-Cheks ACHS and sliding scale insulin and will adjust insulins accordingly Check bladder scan monitor for urinary retention Monitor electrolytes and renal function Continue normal saline at 50 mls/hr and follow-up on repeat labs. PT OT consultation and social work consultation with return to [facility] on discharge. Hopefully discharge tuesday. The impression and plan of care has been dictated by Nurse Pb Prac titioner as directed. Dr. Curtis MD I have performed a history and physical examination and medical decision making of this patient, discussed the same with the dictator, and agree with the dictators assessment and plan as written, documented as a scribe. Based on total visit time, I have performed more than 50% of this visit. Objective - Vital Signs Vital signs: Vital Signs Temp 97.2 F L 12/15/24 13:22 Pulse 72 12/15/24 13:22 Resp 18 12/15/24 13:22 BP 143/71 12/15/24 13:22 Pulse Ox 97 12/15/24 13:22 FiO2 Intake & Output 12/15/24 12/15/24 12/16/24 06:59 18:59 06:59 Other: Voiding Method Diaper # Voids 1 3 # Bowel Movements 1 1 - Labs CBC & Chem 7: 12/15/24 04:21 12/15/24 04:21 Labs: Abnormal Lab Results - Last 24 Hours (Table) 12/14/24 12/15/24 12/15/24 Range/Units 20:41 04:21 04:21 RBC 3.26 L (4.40-5.60) X 10*6/uL Hgb 10.3 L (13.0-17.0) g/dL Hct 32.6 L (39.6-50.0) % MCV 100.0 H (80.0-97.0) FL MCHC 31.6 L (32.0-37.0) g/dL Chloride 110 H (96-109) mmol/L Carbon Dioxide 20.0 L (21.6-31.8) mmol/L Creatinine 2.1 H (0.6-1.5) mg/dL Est GFR (CKD-EPI) 30 L (>=60) BUN/Creatinine Ratio 11.67 L (12.00-20.00) Ratio Glucose 143 H (70-110) mg/dL POC Glucose (mg/dL) 247 H (70-110) mg/dL Calcium 8.4 L (8.7-10.3) mg/dL 12/15/24 12/15/24 12/15/24 Range/Units 06:12 12:28 17:03 RBC (4.40-5.60) X 10*6/uL Hgb (13.0-17.0) g/dL Hct (39.6-50.0) % MCV (80.0-97.0) FL MCHC (32.0-37.0) g/dL Chloride (96-109) mmol/L Carbon Dioxide (21.6-31.8) mmol/L Creatinine (0.6-1.5) mg/dL Est GFR (CKD-EPI) (>=60) BUN/Creatinine Ratio (12.00-20.00) Ratio Glucose (70-110) mg/dL POC Glucose (mg/dL) 136 H 232 H 232 H (70-110) mg/dL Calcium (8.7-10.3) mg/dL Microbiology - Last 24 Hours (Table) 12/11/24 19:00 Blood Culture - Preliminary Blood 12/11/24 18:45 Blood Culture - Preliminary Blood 12/13/24 18:36 Urine Culture - Final Urine,Voided Assessment and Plan Time with Patient: Less than 30
[2024-12-15 20:52] LABS: Glucose,Whole Blood 261 mg/dL (70-110)
[2024-12-16 06:36] LABS: Glucose,Whole Blood 154 mg/dL (70-110)
[2024-12-16 11:48] LABS: Glucose,Whole Blood 191 mg/dL (70-110)
[2024-12-16 12:04] LABS: BUN/Creat Ratio 9.33 Ratio (12.00-20.00); Blood Urea Nitrogen 22.4 mg/dL (9.0-27.0); Calcium 8.5 mg/dL (8.7-10.3); Carbon Dioxide 20.1 mmol/L (21.6-31.8); Chloride 110 mmol/L (96-109); Glucose 163 mg/dL (70-110); Potassium 4.3 mmol/L (3.5-5.5); Sodium 139 mmol/L (135-145)
--- NOTE | 2024-12-16 13:51 | P.PN ---
Subjective Progress Note Date: 12/16/24 Principal diagnosis: Reason for follow-up is UTI and C. difficile colitis Patient is a 89-year-old male with a past medical history significant for coronary artery disease CVA TIA diabetes mellitus hypertension hyperlipidemia [place] prostate disorder presenting to the hospital for evaluation of fever as well as weakness, lethargy from a local [facility] concerning for UTI diagnosed with a UTI also have some diarrhea and stool for significant back positive. On today's evaluation that is 12/16/2024, Patient is afebrile patient is currently on room air and denies having any shortness of breath, the patient denies any chest pain or cough, the patient denies any nausea vomiting did not have any abdominal pain still having loose stool as reported by the nursing staff. The patient did have a creatinine 2.4 no CBC was done today his white count was normal at 9.08 yesterday Objective - Vital Signs Vital signs: Vital Signs Temp 98.0 F 12/16/24 07:13 Pulse 71 12/16/24 07:13 Resp 17 12/16/24 07:13 BP 166/90 12/16/24 07:13 Pulse Ox 99 12/16/24 07:13 FiO2 Intake & Output 12/15/24 12/16/24 12/16/24 18:59 06:59 18:59 Other: Voiding Method Diaper # Voids 3 1 1 # Bowel Movements 1 1 1 - Exam GENERAL DESCRIPTION: An elderly male lying in bed in no distress RESPIRATORY SYSTEM: Unlabored breathing , decreased breath sounds at bases HEART: S1 S2 regular rate and rhythm , ABDOMEN: Soft , no tenderness EXTREMITIES: No edema feet - Labs CBC & Chem 7: 12/15/24 04:21 12/16/24 03:46 Labs: Abnormal Lab Results - Last 24 Hours (Table) 12/15/24 12/15/24 12/16/24 Range/Units 17:03 20:51 03:46 Chloride 110 H (96-109) mmol/L Carbon Dioxide 20.1 L (21.6-31.8) mmol/L Creatinine 2.4 H (0.6-1.5) mg/dL Est GFR (CKD-EPI) 25 L (>=60) BUN/Creatinine Ratio 9.33 L (12.00-20.00) Ratio Glucose 163 H (70-110) mg/dL POC Glucose (mg/dL) 232 H 261 H (70-110) mg/dL Calcium 8.5 L (8.7-10.3) mg/dL 12/16/24 12/16/24 Range/Units 06:35 11:47 Chloride (96-109) mmol/L Carbon Dioxide (21.6-31.8) mmol/L Creatinine (0.6-1.5) mg/dL Est GFR (CKD-EPI) (>=60) BUN/Creatinine Ratio (12.00-20.00) Ratio Glucose (70-110) mg/dL POC Glucose (mg/dL) 154 H 191 H (70-110) mg/dL Calcium (8.7-10.3) mg/dL Assessment and Plan (1) Sepsis Current Visit: Yes Status: Acute Code(s): A41.9 - SEPSIS, UNSPECIFIED ORGANISM SNOMED Code(s): 97209421 (2) UTI (urinary tract infection) Current Visit: Yes Status: Acute Code(s): N39.0 - URINARY TRACT INFECTION, SITE NOT SPECIFIED SNOMED Code(s): 91099856 Plan: 1patient presented hospital with sepsis in this patient who did have fever elevated white count meeting currently for SIRS source is likely urinary concern for possible complicated UTI as the patient did have elevated creatinine question possible obstructive uropathy last 2 urine culture just recently did grew Klebsiella that was sensitive to ceftriaxone 2--repeat UA still positive, urine culture have been entered by discontinue Rocephin 3patient is also developed diarrhea stool for C. difficile is positive, still having loose stool as reported by the nursediet Herminia for symptomatic relief and continue the vancomycin Dictation was produced using [employer] dictation software. please excuse any grammatical, word or spelling errors. Time with Patient: Less than 30
[2024-12-16 17:06] LABS: Glucose,Whole Blood 250 mg/dL (70-110)
--- NOTE | 2024-12-16 20:08 | P.PN ---
Subjective Progress Note Date: 12/16/24 This is a pleasant 89-year-old male who is a permanent resident at [facility]. Patient has a past medical history significant for coronary artery disease with prior cardiac stenting, stroke, diabetes mellitus, hypertension, hyperlipidemia, sleep apnea, chronic kidney disease stage III, AAA with repair. Patient comes in with complaints of fever and abdominal pain from intermediate. He is alert x 2 currently. He is having some mild abdominal discomfort on examination. The patient does have a known history of chronic hydronephrosis and also frequent urinary tract infections most recently back in November [id number] with positive urine culture revealing Klebsiella pneumonia with resistance to ampicillin. Patient this admission had a significantly abnormal urinalysis 2+ protein moderate blood large leukocyte esterase and greater than 182 RBC WBC with many WBC clumps. Urine is brown and turbid in color. White blood cell count was found to be elevated at 23.4 hemoglobin 12.5, sodium of 130 potassium of 5.3, BUN of 38 creatinine of 2.46. Patient also had elevated lactic acid which is since normalized. Patient was admitted to the hospital under internal medicine with a consult placed to infectious disease for the sepsis. Patient also reports an episode of diarrhea over the intermediate. He is started empirically on IV dose and a urine culture has been ordered and pending at this time. Cultures have also been taken and pending. 12/13/2024 Patient is seen in follow-up today continued on IV antibiotics with infectious disease following. Patient being treated with urinary tract infection and has had multiple rounds of antibiotics over the last few months and was having episodes of diarrhea and loose stool, tested positive for C. difficile. Given patient's kidney functions with chronic kidney disease, will initiate titrated dose of Vanco oral per ID recommendations. Patient is afebrile with no reports of chest pain or shortness of breath. Patient reports some abdominal discomfort and continued multiple loose stools. Patient reports to feeling exhausted although patient mostly sleeps throughout the day. Patient resides at [facility] with plans on returning there at discharge. 12/14/2024 Patient is seen in follow-up today with no acute overnight issues noted. Patient is maintained on antibiotics with infectious disease following and has been started on vancomycin 250 mg oral 4 times daily for C. difficile. Patient continues to report multiple episodes of diarrhea although reports abdominal pain is improved. Patient is eating and tolerating dieteek. On discharge with no reported nausea or vomiting. Patient is afebrile and white count is trending down. Plan will be for patient to return to [facility]. 12/15/2024 Patient evaluated today in follow up on the medical floor. Patient currently reporting 2 loose BMs overnight per nursing they have been soft. He remains on oral vancomycin. Urine culture is negative. He is not having any nausea today. He is tolerating diet. 12/16/2024 Patient evaluated resting in bed. Awake and alert. He is having 1 to 2 loose BMs daily. He remains on oral vancomycin for the acute c.dif infection. IV ceftriaxone has been discontinued. Labs today reveal BUN 22.4, creatinine of 2.4. Plans for return to [facility] tomorrow. Review of systems: Constitutional: reports of fatigue, no fever, or chills Cardiovascular: No reports of chest pain or palpitations Respiratory: No reports of shortness of breath or cough GI: No reports of nausea, no vomiting, reports multiple episodes of diarrhea : No reports of dysuria or retention Neurovascular: reports of generalized weakness All medications have been reviewed PHYSICAL EXAMINATION: GENERAL: The patient is awake, alert and oriented x2, not in any acute distress. Well developed, elderly appearing, ill-appearing, thin built. HEENT: Pupils are round and equally reacting to light. EOMI. No scleral icterus. No conjunctival pallor. Normocephalic, atraumatic. No pharyngeal erythema. No thyromegaly. CARDIOVASCULAR: S1 and S2 muffled PULMONARY: Diminished breath sounds bilaterally otherwise chest is clear to auscultation, no wheezing or crackles. ABDOMEN: Soft, mild suprapubic tenderness, nondistended, normoactive bowel sounds. No palpable organomegaly. MUSCULOSKELETAL: No joint swelling or deformity. EXTREMITIES: No cyanosis, clubbing, or pedal edema. NEUROLOGICAL: Gross neurological examination did not reveal any focal deficits. Diffusely weak SKIN: No rashes. Pale Assessment: Acute urinary tract infection with sepsis present on admission Leukocytosis secondary to above Lactic acidosis, improved Diarrhea, positive for C. difficile hyponatremia hypovolemic from infection improving with IV fluids Acute on chronic renal dysfunction acute tubular necrosis from sepsis Chronic bilateral hydronephrosis evaluated by urology prior admission 2 weeks ago Chronic kidney disease stage III baseline creatinine appears to be about 1.9 Coronary artery disease with prior cardiac stenting History of diabetes mellitus type 2 Hypertension Hyperlipidemia History of AAA with endovascular repair and stent graft infrarenal artery Anxiety/depression Sleep apnea Peripheal Vascular disease History of Bladder cancer Dementia GI prophylaxis DVT prophylaxis heparin Subcu NO CODE Plan: Patient is being followed by infectious disease maintained on antibiotics. Urine culture negative. Ceftriaxone has been discontinued Patient was having multiple episodes of diarrhea and C. difficile was obtained and noted to be positive. Patient continued on reduced dose of 250 mg of Vanco 4 times daily given patient's kidney functions Home medications reviewed and resumed as appropriate Continue Accu-Cheks ACHS and sliding scale insulin and will adjust insulins accordingly Check bladder scan monitor for urinary retention Monitor electrolytes and renal function Continue normal saline at 50 mls/hr and follow-up on repeat labs. PT OT consultation and social work consultation with return to [facility] on discharge. Hopefully discharge tuesday. The impression and plan of care has been dictated by Diane Honeycutt, Nurse Practitioner as directed. Dr. Curtis MD I have performed a history and physical examination and medical decision making of this patient, discussed the same with the dictator, and agree with the dictators assessment and plan as written, documented as a scribe. Based on total visit time, I have performed more than 50% of this visit. Objective - Vital Signs Vital signs: Vital Signs Temp 97.9 F 12/16/24 15:41 Pulse 71 12/16/24 15:41 Resp 18 12/16/24 15:41 BP 162/85 12/16/24 15:41 Pulse Ox 98 12/16/24 15:41 FiO2 Intake & Output 12/16/24 12/16/24 12/17/24 06:59 18:59 06:59 Other: Voiding Method Diaper # Voids 1 1 # Bowel Movements 1 3 - Labs CBC & Chem 7: 12/15/24 04:21 12/16/24 03:46 Labs: Abnormal Lab Results - Last 24 Hours (Table) 12/15/24 12/16/24 12/16/24 Range/Units 20:51 03:46 06:35 Chloride 110 H (96-109) mmol/L Carbon Dioxide 20.1 L (21.6-31.8) mmol/L Creatinine 2.4 H (0.6-1.5) mg/dL Est GFR (CKD-EPI) 25 L (>=60) BUN/Creatinine Ratio 9.33 L (12.00-20.00) Ratio Glucose 163 H (70-110) mg/dL POC Glucose (mg/dL) 261 H 154 H (70-110) mg/dL Calcium 8.5 L (8.7-10.3) mg/dL 12/16/24 12/16/24 Range/Units 11:47 17:05 Chloride (96-109) mmol/L Carbon Dioxide (21.6-31.8) mmol/L Creatinine (0.6-1.5) mg/dL Est GFR (CKD-EPI) (>=60) BUN/Creatinine Ratio (12.00-20.00) Ratio Glucose (70-110) mg/dL POC Glucose (mg/dL) 191 H 250 H (70-110) mg/dL Calcium (8.7-10.3) mg/dL Assessment and Plan Time with Patient: Less than 30
[2024-12-16 20:17] VITALS: RESP 16
[2024-12-16 20:47] LABS: Glucose,Whole Blood 243 mg/dL (70-110)
[2024-12-16] MEDS: CHOLESTYRAMINE (WITH SUGAR) 4 GM PACKET PO SCH (21:43)
[2024-12-17 06:25] LABS: Glucose,Whole Blood 159 mg/dL (70-110)
[2024-12-17 08:22] VITALS: BP 164/92; PULSE 82; TEMP 97.6
[2024-12-17 08:47] LABS: BUN/Creat Ratio 8.81 Ratio (12.00-20.00); Basophils # (A) 0.05 X 10*3/uL (0.00-0.10); Basophils % (A) 0.6 %; Blood Urea Nitrogen 18.5 mg/dL (9.0-27.0); Calcium 8.2 mg/dL (8.7-10.3); Carbon Dioxide 19.5 mmol/L (21.6-31.8); Chloride 112 mmol/L (96-109); Eosinophils # (A) 0.25 X 10*3/uL (0.04-0.35); Glucose 170 mg/dL (70-110); HCT 32.9 % (39.6-50.0); HGB 10.1 g/dL (13.0-17.0); Lymphocytes # (A) 2.32 X 10*3/uL (0.90-5.00); Lymphocytes % (A) 28.3 %; MCH 31.3 pg (27.0-32.0); MCHC 30.7 g/dL (32.0-37.0); MCV 101.9 FL (80.0-97.0); Mean Platelet Volume 10.1 FL (9.5-12.2); Monocytes # (A) 0.89 X 10*3/uL (0.20-1.00); Monocytes % (A) 10.9 %; NRBC Per 100 WBC 0 X 10*3/uL (0.00-0.01); Neutrophils # (A) 4.65 X 10*3/uL (1.80-7.70); Neutrophils % (A) 56.7 %; Platelet Count 265 X 10*3/uL (140-440); Potassium 4.5 mmol/L (3.5-5.5); RBC 3.23 X 10*6/uL (4.40-5.60); RDW 13.7 % (11.5-14.5); Sodium 138 mmol/L (135-145)
[2024-12-17 11:59] LABS: Glucose,Whole Blood 194 mg/dL (70-110)
--- NOTE | 2024-12-17 12:43 | P.PN ---
Subjective Progress Note Date: 12/17/24 Principal diagnosis: Reason for follow-up is UTI and C. difficile colitis Patient is a 89-year-old male with a past medical history significant for coronary artery disease CVA TIA diabetes mellitus hypertension hyperlipidemia MD prostate disorder presenting to the hospital for evaluation of fever as well as weakness, lethargy from a local prison concerning for UTI diagnosed with a UTI also have some diarrhea and stool for significant back positive. On today's evaluation that is 12/17/2024, patient has been afebrile, patient is breathing comfortably and is currently on room air, patient denies having any significant cough no chest pain, patient denies nausea vomiting or abdominal pain and diarrhea has slowed down. Patient white count is 8.20, creatinine is 2.1 Objective - Vital Signs Vital signs: Vital Signs Temp 97.6 F 12/17/24 07:55 Pulse 82 12/17/24 07:55 Resp 16 12/17/24 07:55 BP 164/92 12/17/24 07:55 Pulse Ox 97 12/17/24 07:55 FiO2 Intake & Output 12/16/24 12/17/24 12/17/24 18:59 06:59 18:59 Other: Voiding Method Diaper # Voids 1 1 # Bowel Movements 3 1 - Exam GENERAL DESCRIPTION: An elderly male lying in bed in no distress RESPIRATORY SYSTEM: Unlabored breathing , decreased breath sounds at bases HEART: S1 S2 regular rate and rhythm , ABDOMEN: Soft , no tenderness EXTREMITIES: No edema feet - Labs CBC & Chem 7: 12/17/24 03:36 12/17/24 03:36 Labs: Abnormal Lab Results - Last 24 Hours (Table) 12/16/24 12/16/24 12/16/24 Range/Units 03:46 11:47 17:05 RBC (4.40-5.60) X 10*6/uL Hgb (13.0-17.0) g/dL Hct (39.6-50.0) % MCV (80.0-97.0) FL MCHC (32.0-37.0) g/dL Chloride 110 H (96-109) mmol/L Carbon Dioxide 20.1 L (21.6-31.8) mmol/L Creatinine 2.4 H (0.6-1.5) mg/dL Est GFR (CKD-EPI) 25 L (>=60) BUN/Creatinine Ratio 9.33 L (12.00-20.00) Ratio Glucose 163 H (70-110) mg/dL POC Glucose (mg/dL) 191 H 250 H (70-110) mg/dL Calcium 8.5 L (8.7-10.3) mg/dL 12/16/24 12/17/24 12/17/24 Range/Units 20:46 03:36 03:36 RBC 3.23 L (4.40-5.60) X 10*6/uL Hgb 10.1 L (13.0-17.0) g/dL Hct 32.9 L (39.6-50.0) % MCV 101.9 H (80.0-97.0) FL MCHC 30.7 L (32.0-37.0) g/dL Chloride 112 H (96-109) mmol/L Carbon Dioxide 19.5 L (21.6-31.8) mmol/L Creatinine 2.1 H (0.6-1.5) mg/dL Est GFR (CKD-EPI) 30 L (>=60) BUN/Creatinine Ratio 8.81 L (12.00-20.00) Ratio Glucose 170 H (70-110) mg/dL POC Glucose (mg/dL) 243 H (70-110) mg/dL Calcium 8.2 L (8.7-10.3) mg/dL 12/17/24 Range/Units 06:24 RBC (4.40-5.60) X 10*6/uL Hgb (13.0-17.0) g/dL Hct (39.6-50.0) % MCV (80.0-97.0) FL MCHC (32.0-37.0) g/dL Chloride (96-109) mmol/L Carbon Dioxide (21.6-31.8) mmol/L Creatinine (0.6-1.5) mg/dL Est GFR (CKD-EPI) (>=60) BUN/Creatinine Ratio (12.00-20.00) Ratio Glucose (70-110) mg/dL POC Glucose (mg/dL) 159 H (70-110) mg/dL Calcium (8.7-10.3) mg/dL Microbiology - Last 24 Hours (Table) 12/11/24 19:00 Blood Culture - Final Blood 12/11/24 18:45 Blood Culture - Final Blood Assessment and Plan (1) Sepsis Current Visit: Yes Status: Acute Code(s): A41.9 - SEPSIS, UNSPECIFIED ORGANISM SNOMED Code(s): 55943019 (2) UTI (urinary tract infection) Current Visit: Yes Status: Acute Code(s): N39.0 - URINARY TRACT INFECTION, SITE NOT SPECIFIED SNOMED Code(s): 59807300 Plan: 1patient presented hospital with sepsis in this patient who did have fever elevated white count meeting currently for SIRS source is likely urinary concern for possible complicated UTI as the patient did have elevated creatinine question possible obstructive uropathy last 2 urine culture just recently did grew Klebsiella that was sensitive to ceftriaxone 2--repeat UA still positive, urine culture have been negative has received adequate Rocephin for UTI which has been discontinued as of 12/16/2023 3patient with C. difficile colitis mention improvement in the diarrhea recommended 10-day course of oral vancomycin and Questran as needed for his C. difficile colitis discussed with [employer] for admitting team Dictation was produced using [employer] dictation software. please excuse any grammatical, word or spelling errors.
--- NOTE | 2024-12-17 14:06 | P.DS ---
Providers Date of admission: 12/11/24 20:47 Expected date of discharge: 12/17/24 Attending physician: Goyo Crockett Consults: 12/12/24 10:35 Consult Physician Routine Consulting Provider: Nathaniel Hernández Consult Reason/Comments: UTI, sepsis, HX of mdro Do you want consulting provider notified?: Yes Primary care physician: Chinedu Gan [facility] Course: Final diagnosis Acute urinary tract infection with sepsis present on admission Leukocytosis secondary to above, trending down Lactic acidosis, improved Diarrhea, positive for C. difficile hyponatremia hypovolemic from infection, improving Acute on chronic renal dysfunction acute tubular necrosis from sepsis Chronic bilateral hydronephrosis evaluated by urology prior admission 2 weeks ago Chronic kidney disease stage III baseline creatinine appears to be about 1.9 Coronary artery disease with prior cardiac stenting History of diabetes mellitus type 2 Hypertension Hyperlipidemia History of AAA with endovascular repair and stent graft infrarenal artery Anxiety/depression Sleep apnea Peripheal Vascular disease History of Bladder cancer Dementia GI prophylaxis DVT prophylaxis heparin Subcu NO CODE Discharge disposition Patient is being discharged in a stable condition with guarded prognosis to [facility] where patient resides. Patient will follow-up with Dr. Gan in the outpatient setting upon discharge. Patient is to continue with oral Vanco 250 mg 4 times daily for the next 10 days. Patient to follow-up with urology outpatient as scheduled. Total time taken is greater than 35 minutes. Hospital course This is a 89-year-old male who was recently admitted with concerns of acute urinary tract infection with sepsis present on admission. Patient with lactic acidosis and also leukocytosis with chronic bilateral hydronephrosis recently hospitalized and discharged back to [facility] on antibiotics. Patient having abnormal urine and is high risk for recurrent UTIs being admitted for urinary tract infection. Patient proceeded with further multiple episodes of diarrhea and C. difficile testing was done and was positive. Given patient's kidney functions patient will continue on vancomycin 250 mg 4 times daily for the next 10 days per ID recommendations. Patient has been cleared by consultations white count has normalized and patient remains afebrile. Patient is also continued on Questran and will continue twice daily until having more formed stools. Recommend holding bowel regimen for now until completed with antibiotics. If patient is having more formed stools also recommend holding Questran. Please refer to other consultation notes for further HPI. Currently no reports of chest pain, shortness of breath, or palpitations. Patient is afebrile. No reports of nausea or vomiting and patient is tolerating diet. Patient will be going to [facility] today. High risk for readmissions given patient's age and extensive comorbidities. Physical exam: Gen: This is a 89-year-old male who is awake, alert and oriented x 2, baseline, well-developed, elderly appearing, thin built, ill-appearing HEENT: Head is atraumatic, normocephalic. Pupils equal, round. Sclerae is anicteric. NECK: Supple. No JVD. No lymphadenopathy. No thyromegaly. LUNGS: Diminished breath sounds bilaterally otherwise clear to auscultation. No wheezes or rhonchi. No intercostal retractions. HEART: S1, S2 are muffled ABDOMEN: Soft. Thin. Bowel sounds are present. No masses. No tenderness. EXTREMITIES: No pedal edema. No calf tenderness. NEUROLOGICAL: Patient is awake, alert and oriented x2. Cranial nerves 2 through 12 are grossly intact. Diffusely weak, mostly bedbound Please refer to medication reconciliation sheet for a list of medications. The impression and plan of care has been dictated by Carlene Gallegos, Nurse Practitioner as directed. Dr. Curtis MD I have performed a history and examination and MDM of this patient, discussed the same with the dictator, and agree with the dictator's assessment and plan as written ,documented as a scribe. Based on total visit time, I have performed more than 50% of the visit. Patient Condition at Discharge: Fair Plan - Discharge Summary Discharge Rx Participant: No New Discharge Prescriptions: New Cholestyramine (with Sugar) [Questran Packet] 4 gm PO BID@1000,2100 #40 packet Heparin Sodium,Porcine (1 ml) [Heparin Sodium] 5,000 unit SQ Q12HR each Vancomycin HCl [Vancocin HCl] 250 mg PO QID 10 Days #40 cap Continue Tamsulosin HCl [Flomax] 0.4 mg PO BID@0800,2100 Cholecalciferol [Vitamin D3 (25 Mcg = 1000 Iu)] 25 mcg PO DAILY@0800 L.acidoph,Paracasei, B.lactis [Probiotic] 1 cap PO BID@0800,1700 Magnesium Hydroxide [Milk of Magnesia Concentrate] 7,200 mg PO Q48H PRN PRN Reason: Constipation Dextran/Hypromellose/Glycerin [Genteal Tears 0.1%-0.2%-0.3%] 2 drop BOTH EYES BID@0800,2100 Na Phos,M-B/Na Phos,Di-Ba [Fleet Adult] 133 ml RECTAL DAILY PRN PRN Reason: Constipation Escitalopram [Lexapro] 10 mg PO DAILY@0800 bisacodyL [Dulcolax] 10 mg RECTAL DAILY PRN PRN Reason: Constipation Donepezil [Aricept] 10 mg PO HS@2100 Acetaminophen/Diphenhydramine [Tylenol PM 500-25mg] 2 tab PO HS@2100 Acetaminophen Tab [Tylenol] 650 mg PO Q4H PRN PRN Reason: General Discomfort Thiamine [Vitamin B-1] 100 mg PO DAILY@0800 Cyanocobalamin [Vitamin B-12] 1,000 mcg PO DAILY@0800 Multivitamins, Thera [Multivitamin (formulary)] 1 tab PO DAILY@0800 Folic Acid 1 mg PO DAILY@0800 Ondansetron [Zofran] 4 mg PO Q6H PRN PRN Reason: Nausea And Vomiting Ferrous Sulfate [Iron (65 MG Elemental)] 325 mg PO DAILY@0800 Famotidine [Pepcid] 40 mg PO DAILY@0800 Atorvastatin [Lipitor] 10 mg PO HS@2100 INSULIN ASPART (NovoLOG) [NovoLOG (formulary)] See Protocol SQ ACHS@07,11,1630,2130 Glucerna Shake 120 ml PO DAILY@0800 Aspirin 81 mg PO DAILY@0800 Changed Sennosides [Senokot] 8.6 mg PO BID@0800,1700 PRN #0 PRN Reason: Constipation Discharge Medication List Tamsulosin HCl [Flomax] 0.4 mg PO BID@0800,2100 11/18/21 [History] Cholecalciferol [Vitamin D3 (25 Mcg = 1000 Iu)] 25 mcg PO DAILY@0800 03/19/22 [History] Acetaminophen/Diphenhydramine [Tylenol PM 500-25mg] 2 tab PO HS@209912/11/23 [History] Atorvastatin [Lipitor] 10 mg PO HS@209912/11/23 [History] Dextran/Hypromellose/Glycerin [Genteal Tears 0.1%-0.2%-0.3%] 2 drop BOTH EYES BID@0800,2100 12/11/23 [History] Donepezil [Aricept] 10 mg PO HS@2100 12/11/23 [History] Escitalopram [Lexapro] 10 mg PO DAILY@0812/11/23 [History] Famotidine [Pepcid] 40 mg PO DAILY@0800 12/11/23 [History] Ferrous Sulfate [Iron (65 MG Elemental)] 325 mg PO DAILY@0812/11/23 [History] L.acidoph,Paracasei, B.lactis [Probiotic] 1 cap PO BID@0800,1700 12/11/23 [History] Magnesium Hydroxide [Milk of Magnesia Concentrate] 7,200 mg PO Q48H PRN 12/11/23 [History] Na Phos,M-B/Na Phos,Di-Ba [Fleet Adult] 133 ml RECTAL DAILY PRN 12/11/23 [History] Ondansetron [Zofran] 4 mg PO Q6H PRN 12/11/23 [History] bisacodyL [Dulcolax] 10 mg RECTAL DAILY PRN 12/11/23 [History] Aspirin 81 mg PO DAILY@0800 01/05/24 [History] Glucerna Shake 120 ml PO DAILY@0801/05/24 [History] INSULIN ASPART (NovoLOG) [NovoLOG (formulary)] See Protocol SQ ACHS@07,11,1630,2130 01/05/24 [History] Acetaminophen Tab [Tylenol] 650 mg PO Q4H PRN 11/23/24 [History] Cyanocobalamin [Vitamin B-12] 1,000 mcg PO DAILY@0812/12/24 [History] Folic Acid 1 mg PO DAILY@0812/12/24 [History] Multivitamins, Thera [Multivitamin (formulary)] 1 tab PO DAILY@0812/12/24 [History] Thiamine [Vitamin B-1] 100 mg PO DAILY@0812/12/24 [History] Cholestyramine (with Sugar) [Questran Packet] 4 gm PO BID@1000,2100 #40 packet 12/17/24 [Rx] Heparin Sodium,Porcine (1 ml) [Heparin Sodium] 5,000 unit SQ Q12HR each 02/24/25 [Rx] Sennosides [Senokot] 8.6 mg PO BID@0800,1700 PRN #0 12/17/24 [Rx] Vancomycin HCl [Vancocin HCl] 250 mg PO QID 10 Days #40 cap 12/17/24 [Rx] Follow up Appointment(s)/Referral(s): Chinedu Gan MD [Primary Care Provider] - 1-2 days ([facility] please call for follow-up appointment) Activity/Diet/Wound Care/Special Instructions: Patient is going to [facility] as tolerated Continue with oral Vanco 4 times daily for 10 days Discharge Disposition: TRANSFER TO SNF/ECF
== END 2024-12-17 16:54 | DRG 871 ==
LOC: EC 18:07 → 4SSUR 20:47
PROVIDERS: ADMIT Hospitalist; ATTEND Hospitalist
DX: A41.59 Other Gram-negative sepsis (principal); N17.0 Acute kidney failure with tubular necrosis; E87.20 Acidosis, unspecified; A04.72 Enterocolitis due to Clostridium difficile, not specified as recurrent; E86.1 Hypovolemia; F03.94 Unspecified dementia, unspecified severity, with anxiety; E11.22 Type 2 diabetes mellitus with diabetic chronic kidney disease; N18.30 Chronic kidney disease, stage 3 unspecified; I12.9 Hypertensive chronic kidney disease with stage 1 through stage 4 chronic kidney disease, or unspecified chronic kidney disease; F32.A Depression, unspecified; N13.6 Pyonephrosis; F03.93 Unspecified dementia, unspecified severity, with mood disturbance; E87.1 Hypo-osmolality and hyponatremia; Z16.11 Resistance to penicillins; R65.20 Severe sepsis without septic shock; E11.51 Type 2 diabetes mellitus with diabetic peripheral angiopathy without gangrene; E78.5 Hyperlipidemia, unspecified; G47.30 Sleep apnea, unspecified; I25.10 Atherosclerotic heart disease of native coronary artery without angina pectoris; I25.2 Old myocardial infarction; Z79.82 Long term (current) use of aspirin; Z79.899 Other long term (current) drug therapy; Z82.49 Family history of ischemic heart disease and other diseases of the circulatory system; Z85.51 Personal history of malignant neoplasm of bladder; Z86.73 Personal history of transient ischemic attack (TIA), and cerebral infarction without residual deficits; Z85.828 Personal history of other malignant neoplasm of skin; Z87.440 Personal history of urinary (tract) infections; Z86.79 Personal history of other diseases of the circulatory system; Z87.891 Personal history of nicotine dependence; Z95.5 Presence of coronary angioplasty implant and graft; Z98.42 Cataract extraction status, left eye; Z98.41 Cataract extraction status, right eye; Z87.19 Personal history of other diseases of the digestive system; Z96.1 Presence of intraocular lens; Z86.0109 Personal history of other colon polyps
CPT/HCPCS: 36415; 71045; 76770; 80048; 80053; 81001; 83036; 83605; 83735; 85025; 85610; 85730; 87040; 87086; 87324; 93005; 96361; 96365; 99291

== ENCOUNTER 2025-02-18 21:40 | Inpatient (IN) | payer MEDICARE, OTHER ==
--- NOTE | 2025-02-18 22:16 | ED ---
General Adult HPI - General Chief complaint: Urogenital Stated complaint: UTI Time Seen by Provider: 02/18/25 21:44 Source: patient, EMS Mode of arrival: EMS Limitations: no limitations - History of Present Illness Initial comments: This patient is an 89-year-old man who is transferred here from shelter. The documentation accompanying the patient states that he had a fever (102.5 at 8:15pm) at the shelter and that there was a change in his mental status. Pressure also noted to be low, reading of 73/54 with a heart rate of 120. They state that they had communicated with the family and family requested patient be sent to the ER. When I speak with the patient, he is without complaints, he states that he did not want to come to the hospital tonight he has just been tired all day. He states that his appetite was decreased and that he did not want to eat earlier he just wanted to go to bed. The patient's son subsequently arrived and stated that when he had gone to visit the patient, the patient had been sleeping all day, this was over the weekend. He states that in the past this has been associated with sepsis. Patient's son states that the catheter had cloudy urine over the weekend. The patient states that the catheter was changed within the past 24 hours. Medical record reveals history of sepsis with urinary tract infection in November of this year. Patient has underlying history of diabetes, chronic kidney disease, Parkinson's disease. Onset/Timin -: days(s) Severity scale (1-10): 0 Improves with: none Worsens with: none Associated Symptoms: confusion, fever/chills, loss of appetite Treatments Prior to Arrival: none - Related Data Home Medications Medication Instructions Recorded Confirmed Tamsulosin HCl [Flomax] 0.4 mg PO BID@0800,1700 11/18/21 02/19/25 Acetaminophen/Diphenhydramine 2 tab PO HS@209912/11/23 02/19/25 [Tylenol PM 500-25mg] Dextran/Hypromellose/Glycerin 2 drop BOTH EYES BID@0800,1700 12/11/23 02/19/25 [Genteal Tears 0.1%-0.2%-0.3%] Escitalopram [Lexapro] 10 mg PO DAILY@0800 12/11/23 02/19/25 Famotidine [Pepcid] 40 mg PO DAILY@0800 12/11/23 02/19/25 L.acidoph,Paracasei, B.lactis 1 cap PO BID@0800,1700 12/11/23 02/19/25 [Probiotic] Magnesium Hydroxide [Milk of 7,200 mg PO Q48H PRN 12/11/23 02/19/25 Magnesia Concentrate] Na Phos,M-B/Na Phos,Di-Ba [Fleet 133 ml RECTAL DAILY PRN 12/11/23 02/19/25 Adult] Ondansetron [Zofran] 4 mg PO Q6H PRN 12/11/23 02/19/25 bisacodyL [Dulcolax] 10 mg RECTAL DAILY PRN 12/11/23 02/19/25 Aspirin 81 mg PO DAILY@0800 01/05/24 02/19/25 Glucerna Shake 120 ml PO DAILY@0800 01/05/24 02/19/25 INSULIN ASPART (NovoLOG) [NovoLOG See Protocol SQ 01/05/24 02/19/25 (formulary)] ACHS@07,11,1630,2130 Acetaminophen Tab [Tylenol] 650 mg PO Q4H PRN 11/23/24 02/19/25 Cholestyramine (with Sugar) 4 gm PO BID PRN 02/19/25 02/19/25 [Questran Packet] Hyoscyamine Sulfate [Levsin] 0.125 mg PO Q4H PRN 02/19/25 02/19/25 Sennosides [Senokot] 8.6 mg PO BID PRN 02/19/25 02/19/25 Previous Rx's Medication Instructions Recorded Ertapenem [INVanz] 1 gm IVPB Q24H #14 each 02/23/25 HYDROcodone/APAP 5-325MG [[place] 1 tab PO Q4HR PRN #3 tab 02/23/25 5-325] LORazepam [Ativan] 0.5 mg PO Q6H PRN #4 tab 02/23/25 Allergies Allergy/AdvReac Type Severity Reaction Status Date / Time No Known Allergies Allergy Verified 02/19/25 07:08 Review of Systems ROS Statement: Those systems with pertinent positive or pertinent negative responses have been documented in the HPI. ROS Other: All systems not noted in ROS Statement are negative. Constitutional: Reports: as per HPI, fever Eyes: Denies: vision change ENT: Denies: throat pain Respiratory: Denies: cough, dyspnea Cardiovascular: Denies: chest pain, palpitations, orthopnea, edema Gastrointestinal: Denies: abdominal pain, vomiting, diarrhea, constipation Genitourinary: Reports: other (Chronic Aceves catheter) Musculoskeletal: Denies: back pain Skin: Denies: rash Neurological: Reports: as per HPI, confusion. Denies: headache, weakness Past Medical History Past Medical History: Coronary Artery Disease (CAD), Cancer, CVA/TIA, Diabetes Mellitus, Hyperlipidemia, Hypertension, Myocardial Infarction (MS), Prostate Disorder, Sleep Apnea/CPAP/BIPAP, Vascular Disorder Additional Past Medical History / Comment(s): TIA in 2014, MICHAEL without device, CKD stage III, chronic low back pain, migraines in past, vertigo, balance issues, falls, BPH, benign colon polyp, diverticular disease, vascular disease with surgery-AAA repair and R leg bypass, skin cancer with removal, superficial bladder cancer Last Myocardial Infarction Date:: 04/17/17 History of Any Multi-Drug Resistant Organisms: ESBL Date of last positivie culture/infection: 01/19/24 MDRO Source:: Urine Past Surgical History: Adenoidectomy, Heart Catheterization With Stent, Tonsillectomy Additional Past Surgical History / Comment(s): 12/07/18 endovascular repair/stent graft infra renal aorta, R leg bypass surgery after AAA repair at [facility], colonoscopy/polypectomy, basal cell cancer removed from forehead, bilateral cataract removals/lens implants, cystoscopy -biopsy for cancer Past Anesthesia/Blood Transfusion Reactions: No Reported Reaction Additional Past Anesthesia/Blood Transfusion Reaction / Comment(s): . Date of Last Stent Placement:: 03/2017 Past Psychological History: Anxiety, Depression Smoking Status: Former smoker Past Alcohol Use History: None Reported Past Drug Use History: None Reported - Past Family History Brother(s) Family Medical History: No Reported History Sister(s) Family Medical History: No Reported History Son(s) Family Medical History: No Reported History Father Family Medical History: Diabetes Mellitus, Myocardial Infarction (MS), Vascular Disorder Additional Family Medical History / Comment(s): Father of a MS at the age of 76 or 77yrs. He was an alcoholic. Mother Family Medical History: Deep Vein Thrombosis (DVT), Pulmonary Embolus Additional Family Medical History / Comment(s): Mother at 42 yrs of age of "blood clot" in the lung and it went to the heart. General Exam Limitations: no limitations General appearance: alert, in no apparent distress Head exam: Present: atraumatic, normocephalic Eye exam: Present: normal appearance. Absent: scleral icterus, conjunctival injection ENT exam: Present: mucous membranes dry Neck exam: Present: normal inspection, full ROM. Absent: meningismus Respiratory exam: Present: normal lung sounds bilaterally. Absent: respiratory distress, wheezes, rales, rhonchi, stridor, accessory muscle use Cardiovascular Exam: Present: regular rate, normal rhythm, normal heart sounds. Absent: systolic murmur, diastolic murmur, rubs, gallop GI/Abdominal exam: Present: soft. Absent: distended, tenderness, guarding, rebound, rigid, mass Extremities exam: Present: normal inspection, normal capillary refill. Absent: pedal edema, calf tenderness Neurological exam: Present: alert, CN II-XII intact. Absent: oriented X3 (Patient is oriented to person and place but did not know the exact date), motor sensory deficit Psychiatric exam: Present: normal affect Skin exam: Present: warm, dry, intact, normal color. Absent: rash Course Vital Signs 02/18/25 02/19/25 02/19/25 21:43 00:56 02:17 Temperature 98.6 F 100.0 F H 98.2 F Pulse Rate 79 107 H 104 H Respiratory 18 16 Rate Blood Pressure 115/70 120/56 O2 Sat by Pulse 100 95 96 Oximetry 02/19/25 02/19/25 02/19/25 03:13 05:22 06:23 Temperature 98.7 F Pulse Rate 100 92 62 Respiratory 18 16 16 Rate Blood Pressure 122/69 101/59 91/56 O2 Sat by Pulse 97 94 L 95 Oximetry 02/19/25 02/19/25 02/19/25 10:40 12:00 14:00 Temperature 98.0 F 98.0 F 98.0 F Pulse Rate 70 86 87 Respiratory 22 17 20 Rate Blood Pressure 101/59 109/66 115/68 O2 Sat by Pulse 98 97 98 Oximetry 02/19/25 15:00 Temperature 98.0 F Pulse Rate 98 Respiratory 20 Rate Blood Pressure 120/64 O2 Sat by Pulse 98 Oximetry EKG Findings - EKG Results: EKG: interpreted by ERMD, sinus rhythm (Rate 88 bpm), normal ST/T - Blocks, Wendell, Hypertrophy, ST Abn: QRS axis and voltage: left axis deviation (-30 to -90) (Borderline) Procedures - Sepsis Sepsis Focused Exam #1 Sepsis Focused Exam Date: 02/19/25 Sepsis Focused Exam Time: 03:00 Sepsis Focused Exam Complete: Yes Vital Signs & RN Notes Reviewed: Yes Capillary Refill: < 2 Seconds: Fingers Peripheral Pulses: Normal: Radial (L) Skin Color: Normal for Patient Respiratory Exam: normal lung sounds Cardiovascular Exam: regular rate, normal rhythm, normal heart sounds Medical Decision Making - Medical Decision Making Patient is 89-year-old man from shelter with altered mental status and fever. The patient found to be septic with probable urinary tract infection. The patient was on fluid boluses, antibiotics, and urine is sent for culture. The patient is admitted to have further inpatient therapy. The patient had chest x-ray that I interpreted as negative for pneumothorax or congestive heart failure. There is possible early infiltrate. Was pt. sent in by a medical professional or institution (, PA, RESIDENTIAL DIRECTOR, urgent care, hospital, or shelter...) When possible be specific @ -[No] Did you speak to anyone other than the patient for history (EMS, parent, family, police, friend...)? What history was obtained from this source @ -[No] Did you review nursing and triage notes (agree or disagree)? Why? @ -[I reviewed and agree with nursing and triage notes] Were old charts reviewed (outside hosp., previous admission, EMS record, old EKG, old radiological studies, urgent care reports/EKG's, shelter records)? Report findings @ -[Transfer records were reviewed] Differential Diagnosis (chest pain, altered mental status, abdominal pain women, abdominal pain men, vaginal bleeding, weakness, fever, dyspnea, syncope, headache, dizziness, GI bleed, back pain, seizure, CVA, palpatations, mental health, musculoskeletal)? @ -[Differential Fever: Pneumonia, viral URI, endocarditis, myocarditis, pericarditis, otitis, sinusitis, peritonsillar Abscess, retropharyngeal Abscess, epiglottitis, peritonitis, appendicitis, Alexandra cystitis, diverticulitis, hepatitis, colitis, UTI, PID, TOA, pyelonephritis, prostatitis, epididymitis, meningitis, encephalitis, pulmonary embolism, CVA, thyroid storm, pancreatitis, adrenal crisis, cavernous sinus thrombosis, this is not meant to be an all-inclusive list. Differential Altered Mental Status: Hypoglycemia, DKA, hypercapnia, ETOH, overdose, CO poisoning, trauma, myxedema coma, HTN encephalopathy, infection, encephalitis, psychosis, intercranial hemorrhage, hepatic encephalopathy, meningitis, CVA, this is not meant to be an all-inclusive list EKG interpreted by me (3pts min.). @ -[I interpreted as above] X-rays interpreted by me (1pt min.). @ -[I interpreted as above CT interpreted by me (1pt min.). @ -[None done] U/S interpreted by me (1pt. min.). @ -[None done] What testing was considered but not performed or refused? (CT, X-rays, U/S, labs)? Why? @ -[None] What meds were considered but not given or refused? Why? @ -[None] Did you discuss the management of the patient with other professionals (professionals i.e. , PA, RESIDENTIAL DIRECTOR, lab, RT, psych nurse, social media specialist, sales service coordinator, teacher, preventive medicine officer, employment evaluator/case manager)? Give summary @ -[Case discussed with admitting physician and treatment recommendations incorporated Was smoking cessation discussed for >3mins.? @ -[No] Was critical care preformed (if so, how long)? @ -[yes 35 minutes Were there social determinants of health that impacted care today? How? (Homelessness, low income, unemployed, alcoholism, drug addiction, transportatio n, low edu. Level, literacy, decrease access to med. care, correction, rehab)? @ -[No] Was there de-escalation of care discussed even if they declined (Discuss DNR or withdrawal of care, Hospice)? DNR status @ -[No] What co-morbidities impacted this encounter? (DM, HTN, Smoking, COPD, CAD, Cancer, CVA, ARF, Chemo, Hep., AIDS, mental health diagnosis, sleep apnea, morbid obesity)? @ -[None] Was patient admitted / discharged? Hospital course, mention meds given and route, prescriptions, significant lab abnormalities, going to OR and other pertinent info. @ -[See the above notes Undiagnosed new problem with uncertain prognosis? @ -[No] Drug Therapy requiring intensive monitoring for toxicity (Heparin, Nitro, Insulin, Cardizem)? @ -[No] Were any procedures done? @ -[No] Diagnosis/symptom? @ -[Sepsis Urinary tract infection Altered mental status Possible pneumonia Lactic acidosis Acute kidney injury Acute, or Chronic, or Acute on Chronic? @ -[Acute Uncomplicated (without systemic symptoms) or Complicated (systemic symptoms)? @ -[Complicated by altered mental status Side effects of treatment? @ -[No] Exacerbation, Progression, or Severe Exacerbation? @ -[No] Poses a threat to life or bodily function? How? (Chest pain, USA, MS, pneumonia, PE, COPD, DKA, ARF, appy, cholecystitis, CVA, Diverticulitis, Homicidal, Suicidal, threat to staff... and all critical care pts) @ -Yes there is significant risk of organ failure/ associate with sepsis All treatments are based on ideal body weight as in ED triage. Initial fluid rate is lower than protocol due to concerns for fluid overload. - Lab Data Result diagrams: 02/22/25 06:34 02/23/25 04:46 Lab Results 02/18/25 02/18/25 02/18/25 Range/Units 22:29 23:24 23:24 WBC 21.83 H (4.50-10.00) 10*3/uL RBC 3.54 L (4.40-5.60) 10*6/uL Hgb 11.5 L (13.0-17.0) g/dL Hct 34.4 L (39.6-50.0) % MCV 97.2 H (80.0-97.0) fL MCH 32.5 H (27.0-32.0) pg MCHC 33.4 (32.0-37.0) g/dL Plt Count 293 (140-440) 10*3/uL MPV 9.3 L (9.5-12.2) fL Immature Gran % (Auto) 0.6 % Neutrophils % 83.4 % Lymphocytes % 7.3 % Monocytes % 8.3 % Eosinophils % 0.0 % Basophils % 0.4 % Immature Gran # 0.13 H (0.00-0.04) 10*3/uL Neutrophils # 18.20 H (1.80-7.70) 10*3/uL Lymphocytes # 1.60 (0.90-5.00) 10*3/uL Monocytes # 1.81 H (0.20-1.00) 10*3/uL Eosinophils # 0.01 L (0.04-0.35) 10*3/uL Basophils # 0.08 (0.00-0.10) 10*3/uL Immature Plt Fraction 1.4 (1.1-6.1) % PT (10.0-12.5) sec INR (<1.2) APTT (22.0-30.0) sec Sodium 131 L (137-145) mmol/L Potassium 4.7 (3.5-5.1) mmol/L Chloride 101 (98-107) mmol/L Carbon Dioxide 21 L (22-30) mmol/L Anion Gap 9 mmol/L BUN 37 H (9-20) mg/dL Creatinine 2.64 H (0.66-1.25) mg/dL Est GFR (CKD-EPI)AfAm 24 (>60 ml/min/1.73 sqM) Est GFR (CKD-EPI)NonAf 21 (>60 ml/min/1.73 sqM) Glucose 260 H (74-99) mg/dL Lactic Ac Sepsis Rflx Plasma Lactic Acid Zander 2.5 H* (0.7-2.0) mmol/L Calcium 8.9 (8.4-10.2) mg/dL Total Bilirubin 0.8 (0.2-1.3) mg/dL AST 30 (17-59) U/L ALT 12 (4-49) U/L Alkaline Phosphatase 127 H (38-126) U/L Total Protein 6.3 (6.3-8.2) g/dL Albumin 2.8 L (3.5-5.0) g/dL Urine Color Urine Appearance (Clear) Urine pH (5.0-8.0) Ur Specific Cascade (1.001-1.035) Urine Protein (Negative) Urine Glucose (UA) (Negative) Urine Ketones (Negative) Urine Blood (Negative) Urine Nitrite (Negative) Urine Bilirubin (Negative) Urine Urobilinogen (<2.0) mg/dL Ur Leukocyte Esterase (Negative) Urine RBC (0-5) /hpf Urine WBC (0-5) /hpf Urine WBC Clumps (None) /hpf Urine Bacteria (None) /hpf 02/18/25 02/18/25 02/19/25 Range/Units 23:24 23:54 00:10 WBC (4.50-10.00) 10*3/uL RBC (4.40-5.60) 10*6/uL Hgb (13.0-17.0) g/dL Hct (39.6-50.0) % MCV (80.0-97.0) fL MCH (27.0-32.0) pg MCHC (32.0-37.0) g/dL Plt Count (140-440) 10*3/uL MPV (9.5-12.2) fL Immature Gran % (Auto) % Neutrophils % % Lymphocytes % % Monocytes % % Eosinophils % % Basophils % % Immature Gran # (0.00-0.04) 10*3/uL Neutrophils # (1.80-7.70) 10*3/uL Lymphocytes # (0.90-5.00) 10*3/uL Monocytes # (0.20-1.00) 10*3/uL Eosinophils # (0.04-0.35) 10*3/uL Basophils # (0.00-0.10) 10*3/uL Immature Plt Fraction (1.1-6.1) % PT 11.1 (10.0-12.5) sec INR 1.0 (<1.2) APTT 20.3 L (22.0-30.0) sec Sodium (137-145) mmol/L Potassium (3.5-5.1) mmol/L Chloride (98-107) mmol/L Carbon Dioxide (22-30) mmol/L Anion Gap mmol/L BUN (9-20) mg/dL Creatinine (0.66-1.25) mg/dL Est GFR (CKD-EPI)AfAm (>60 ml/min/1.73 sqM) Est GFR (CKD-EPI)NonAf (>60 ml/min/1.73 sqM) Glucose (74-99) mg/dL Lactic Ac Sepsis Rflx Y Plasma Lactic Acid Zander (0.7-2.0) mmol/L Calcium (8.4-10.2) mg/dL Total Bilirubin (0.2-1.3) mg/dL AST (17-59) U/L ALT (4-49) U/L Alkaline Phosphatase (38-126) U/L Total Protein (6.3-8.2) g/dL Albumin (3.5-5.0) g/dL Urine Color Light Yellow Urine Appearance Turbid (Clear) Urine pH 6.0 (5.0-8.0) Ur Specific Cascade 1.017 (1.001-1.035) Urine Protein 1+ H (Negative) Urine Glucose (UA) 2+ H (Negative) Urine Ketones Negative (Negative) Urine Blood Large H (Negative) Urine Nitrite Positive (Negative) Urine Bilirubin Negative (Negative) Urine Urobilinogen <2.0 (<2.0) mg/dL Ur Leukocyte Esterase Large H (Negative) Urine RBC >182 H (0-5) /hpf Urine WBC >182 H (0-5) /hpf Urine WBC Clumps Many H (None) /hpf Urine Bacteria Many H (None) /hpf Disposition Clinical Impression: UTI (urinary tract infection), Sepsis, Weakness, CELE (acute kidney injury), Lactic acidosis Disposition: [facility] Condition: Poor Is patient prescribed a controlled substance at d/c from ED?: No
[2025-02-18] MEDS: LACTATED RINGERS 1,000 ML IV SCH (22:22)
[2025-02-18 23:33] LABS: Basophils # (A) 0.08 10*3/uL (0.00-0.10); Basophils % (A) 0.4 %; Eosinophils # (A) 0.01 10*3/uL (0.04-0.35); HCT 34.4 % (39.6-50.0); HGB 11.5 g/dL (13.0-17.0); Immature Platelet Fraction 1.4 % (1.1-6.1); Lymphocytes % (A) 7.3 %; MCH 32.5 pg (27.0-32.0); MCHC 33.4 g/dL (32.0-37.0); MCV 97.2 fL (80.0-97.0); Mean Platelet Volume 9.3 fL (9.5-12.2); Monocytes # (A) 1.81 10*3/uL (0.20-1.00); Monocytes % (A) 8.3 %; Neutrophils % (A) 83.4 %; Platelet Count 293 10*3/uL (140-440); RBC 3.54 10*6/uL (4.40-5.60); RDW 13.1 % (11.5-14.5); WBC 21.83 10*3/uL (4.50-10.00)
[2025-02-18 23:45] LABS: ALT 12 U/L (4-49); AST 30 U/L (17-59); African American GFR (CKD) 24 (>60 ml/min/1.73 sqM); Albumin 2.8 g/dL (3.5-5.0); Alkaline Phosphatase 127 U/L (38-126); Anion Gap 9 mmol/L; Blood Urea Nitrogen 37 mg/dL (9-20); Calcium 8.9 mg/dL (8.4-10.2); Carbon Dioxide 21 mmol/L (22-30); Chloride 101 mmol/L (98-107); Glucose 260 mg/dL (74-99); Non-African American GFR(CKD) 21 (>60 ml/min/1.73 sqM); Sodium 131 mmol/L (137-145); Total Bilirubin 0.8 mg/dL (0.2-1.3); Total Protein 6.3 g/dL (6.3-8.2)
--- NOTE | 2025-02-18 23:49 | XR ---
EXAM: XR Chest, 1 View CLINICAL HISTORY: Pt to ED for possible UTI symptoms. Pt has Aceves catheter in place. Pt is on hospice and family wanted pt to come in to hospital. Fever. TECHNIQUE: Frontal view of the chest. COMPARISON: 12/11/24 FINDINGS: Lungs: Suspect small amount of left retrocardiac opacities. Pleural space: Unremarkable. Mediastinum: Unremarkable. Normal mediastinal contour. Bones/joints: No acute findings. IMPRESSION: Suspect small amount of left retrocardiac opacities which may represent atelectasis and/or pneumonia versus aspiration.
[2025-02-18 23:50] LABS: Prothrombin Time 11.1 sec (10.0-12.5)
[2025-02-18 23:55] LABS: Potassium 4.7 mmol/L (3.5-5.1)
[2025-02-19 00:40] LABS: Partial Thromboplastin Time 20.3 sec (22.0-30.0)
[2025-02-19] MEDS: LACTATED RINGERS 1,000 ML IV ONE (00:54)
[2025-02-19 01:04] LABS: Appearance,Urine Turbid (Clear); Bacteria,Urine Many /hpf; Bilirubin,Urine Negative (Negative); Blood,Urine Large (Negative); Color,Urine Light Yellow; Glucose,Urine (UA) 2+ (Negative); Ketones,Urine Negative (Negative); Leukocyte Esterase,Urine Large (Negative); Nitrite,Urine Positive (Negative); Protein,Urine 1+ (Negative); RBC,Urine >182 /hpf (0-5); Specific Gravity,Urine 1.017 (1.001-1.035); Urobilinogen,Urine <2.0 mg/dL (<2.0); WBC,Urine >182 /hpf (0-5)
[2025-02-19] MEDS: FUROSEMIDE 20 MG TAB PO STA (01:24)
[2025-02-19] MEDS: ACETAMINOPHEN TAB 325 MG TAB PO STA (01:26)
[2025-02-19] MEDS: LACTATED RINGERS 1,000 ML IV SCH (02:44)
[2025-02-19] MEDS: SODIUM CHLORIDE 0.9% 500 ML 500 ML IV STA (08:00)
[2025-02-19] MEDS: FAMOTIDINE 20 MG/2 ML VIAL IV SCH (10:21)
[2025-02-19] MEDS ORDERED: SENNOSIDES 8.6 MG TAB PO PRN (12:17)
--- NOTE | 2025-02-19 12:32 | P.HPIM ---
History of Present Illness 89-year-old male was transferred from correction for urinary tract infection urine significantly abnormal patient had a hydronephrosis pyelonephritis in the past patient urine showed large leukocyte Estrace elevated white blood cell count and RBC. Patient was on hospice. I had lengthy discussion with the family regarding hospice goals of care and not treating the patient but patient's family at this point patient to be treated and they prefer not to continue hospice anymore at this time. I am unable to get much of the history from the patient patient is bit lethargic arousable did not provide me any history patient had high-grade fever and leukocytosis of 21,000. Chest x-ray did show some retrocardiac opacities concerning for aspiration pneumonia versus atelectasis. REVIEW OF SYSTEMS: All other systems are negative except those mentioned in the HPI PHYSICAL EXAMINATION: GENERAL: Arousable lethargic unable to get any history from the patient thin built HEENT: Pupils are round and equally reacting to light. EOMI. No scleral icterus. No conjunctival pallor. Normocephalic, atraumatic. No pharyngeal erythema. No thyromegaly. CARDIOVASCULAR: S1 and S2 present. No murmurs, rubs, or gallops. PULMONARY: Chest is clear to auscultation, no wheezing or crackles. ABDOMEN: Soft, nontender, nondistended, normoactive bowel sounds. No palpable organomegaly. MUSCULOSKELETAL: No joint swelling or deformity. EXTREMITIES: No cyanosis, clubbing, or pedal edema. NEUROLOGICAL: As mentioned above SKIN: No rashes. Assessment and plan -Severe sepsis secondary to urinary tract infection although possibility of aspiration pneumonia cannot be ruled out patient will be started on IV antibiotics and IV fluids as per the family's request - Chronic kidney disease stage IV baseline creatinine around 2.1 present creatin ine is around 2.64 may have acute renal failure from acute tubular necrosis from infection IV fluids there is lactated Ringer's as mentioned above - History of coronary disease patient will be started on aspirin 81 mg , patient is not on any medications at this time for coronary disease because of his hospice status and that this hospitalization - Type 2 diabetes mellitus patient was started on sliding scale insulin - Benign prostatic hypertrophy - Depression for which patient will be resumed on his medications DVT prophylaxis: Subcutaneous heparin Past Medical History Past Medical History: Coronary Artery Disease (CAD), Cancer, CVA/TIA, Diabetes Mellitus, Hyperlipidemia, Hypertension, Myocardial Infarction (CO), Prostate Disorder, Sleep Apnea/CPAP/BIPAP, Vascular Disorder Additional Past Medical History / Comment(s): TIA in 2014, MICHAEL without device, CKD stage III, chronic low back pain, migraines in past, vertigo, balance issues, falls, BPH, benign colon polyp, diverticular disease, vascular disease with surgery-AAA repair and R leg bypass, skin cancer with removal, superficial bladder cancer Last Myocardial Infarction Date:: 04/17/17 History of Any Multi-Drug Resistant Organisms: ESBL Date of last positivie culture/infection: 01/19/24 MDRO Source:: Urine Past Surgical History: Adenoidectomy, Heart Catheterization With Stent, Tonsillectomy Additional Past Surgical History / Comment(s): 12/07/18 endovascular repair/stent graft infra renal aorta, R leg bypass surgery after AAA repair at [facility], colonoscopy/polypectomy, basal cell cancer removed from forehead, bilateral cataract removals/lens implants, cystoscopy -biopsy for cancer Past Anesthesia/Blood Transfusion Reactions: No Reported Reaction Additional Past Anesthesia/Blood Transfusion Reaction / Comment(s): . Date of Last Stent Placement:: 03/2017 Past Psychological History: Anxiety, Depression Smoking Status: Former smoker Past Alcohol Use History: None Reported Past Drug Use History: None Reported - Past Family History Brother(s) Family Medical History: No Reported History Sister(s) Family Medical History: No Reported History Son(s) Family Medical History: No Reported History Father Family Medical History: Diabetes Mellitus, Myocardial Infarction (CO), Vascular Disorder Additional Family Medical History / Comment(s): Father of a CO at the age of 76 or 77yrs. He was an alcoholic. Mother Family Medical History: Deep Vein Thrombosis (DVT), Pulmonary Embolus Additional Family Medical History / Comment(s): Mother at 42 yrs of age of "blood clot" in the lung and it went to the heart. Medications and Allergies Home Medications Medication Instructions Recorded Confirmed Type Tamsulosin HCl [Flomax] 0.4 mg PO BID@0800,1700 11/18/21 02/19/25 History Acetaminophen/Diphenhydramine 2 tab PO HS@2100 12/11/23 02/19/25 History [Tylenol PM 500-25mg] Dextran/Hypromellose/Glycerin 2 drop BOTH EYES BID@0800,1700 12/11/23 02/19/25 History [Genteal Tears 0.1%-0.2%-0.3%] Escitalopram [Lexapro] 10 mg PO DAILY@0800 12/11/23 02/19/25 History Famotidine [Pepcid] 40 mg PO DAILY@0800 12/11/23 02/19/25 History L.acidoph,Paracasei, B.lactis 1 cap PO BID@0800,1700 12/11/23 02/19/25 History [Probiotic] Magnesium Hydroxide [Milk of 7,200 mg PO Q48H PRN 12/11/23 02/19/25 History Magnesia Concentrate] Na Phos,M-B/Na Phos,Di-Ba [Fleet 133 ml RECTAL DAILY PRN 12/11/23 02/19/25 History Adult] Ondansetron [Zofran] 4 mg PO Q6H PRN 12/11/23 02/19/25 History bisacodyL [Dulcolax] 10 mg RECTAL DAILY PRN 12/11/23 02/19/25 History Aspirin 81 mg PO DAILY@0800 01/05/24 02/19/25 History Glucerna Shake 120 ml PO DAILY@0800 01/05/24 02/19/25 History INSULIN ASPART (NovoLOG) [NovoLOG See Protocol SQ 01/05/24 02/19/25 History (formulary)] ACHS@07,11,1630,2130 Acetaminophen Tab [Tylenol] 650 mg PO Q4H PRN 11/23/24 02/19/25 History Cholestyramine (with Sugar) 4 gm PO BID PRN 02/19/25 02/19/25 History [Questran Packet] HYDROcodone/APAP 5-325MG [[place] 1 tab PO Q4HR PRN 02/19/25 02/19/25 History 5-325] Hyoscyamine Sulfate [Levsin] 0.125 mg PO Q4H PRN 02/19/25 02/19/25 History LORazepam [Ativan] 0.5 mg PO Q6H PRN 02/19/25 02/19/25 History MORPHINE ORAL ZAY 2mg/mL [Morphine 1 mg PO Q3H PRN 02/19/25 02/19/25 History Oral Soln 2 MG/ML] Sennosides [Senokot] 8.6 mg PO BID PRN 02/19/25 02/19/25 History Allergies Allergy/AdvReac Type Severity Reaction Status Date / Time No Known Allergies Allergy Verified 02/19/25 07:08 Physical Exam Vitals: Vital Signs Temp Pulse Resp BP Pulse Ox 02/19/25 10:40 98.0 F 70 22 101/59 98 02/19/25 06:23 98.7 F 62 16 91/56 95 02/19/25 05:22 92 16 101/59 94 L 02/19/25 03:13 100 18 122/69 97 02/19/25 02:17 98.2 F 104 H 96 02/19/25 00:56 100.0 F H 107 H 16 120/56 95 02/18/25 21:43 98.6 F 79 18 115/70 100 Intake and Output 02/18/25 02/19/25 02/19/25 22:59 06:59 14:59 Other: Voiding Method Indwelling Catheter Weight 68.039 kg Results CBC & Chem 7: 02/18/25 23:24 02/18/25 23:24 Labs: Abnormal Lab Results - Last 24 Hours (Table) 02/18/25 02/18/25 02/18/25 Range/Units 22:29 23:24 23:24 WBC 21.83 H (4.50-10.00) 10*3/uL RBC 3.54 L (4.40-5.60) 10*6/uL Hgb 11.5 L (13.0-17.0) g/dL Hct 34.4 L (39.6-50.0) % MCV 97.2 H (80.0-97.0) fL MCH 32.5 H (27.0-32.0) pg MPV 9.3 L (9.5-12.2) fL Immature Gran # 0.13 H (0.00-0.04) 10*3/uL Neutrophils # 18.20 H (1.80-7.70) 10*3/uL Monocytes # 1.81 H (0.20-1.00) 10*3/uL Eosinophils # 0.01 L (0.04-0.35) 10*3/uL APTT (22.0-30.0) sec Sodium 131 L (137-145) mmol/L Carbon Dioxide 21 L (22-30) mmol/L BUN 37 H (9-20) mg/dL Creatinine 2.64 H (0.66-1.25) mg/dL Glucose 260 H (74-99) mg/dL Plasma Lactic Acid Zander 2.5 H* (0.7-2.0) mmol/L Alkaline Phosphatase 127 H (38-126) U/L Albumin 2.8 L (3.5-5.0) g/dL Urine Protein (Negative) Urine Glucose (UA) (Negative) Urine Blood (Negative) Ur Leukocyte Esterase (Negative) Urine RBC (0-5) /hpf Urine WBC (0-5) /hpf Urine WBC Clumps (None) /hpf Urine Bacteria (None) /hpf 02/18/25 02/19/25 Range/Units 23:24 00:10 WBC (4.50-10.00) 10*3/uL RBC (4.40-5.60) 10*6/uL Hgb (13.0-17.0) g/dL Hct (39.6-50.0) % MCV (80.0-97.0) fL MCH (27.0-32.0) pg MPV (9.5-12.2) fL Immature Gran # (0.00-0.04) 10*3/uL Neutrophils # (1.80-7.70) 10*3/uL Monocytes # (0.20-1.00) 10*3/uL Eosinophils # (0.04-0.35) 10*3/uL APTT 20.3 L (22.0-30.0) sec Sodium (137-145) mmol/L Carbon Dioxide (22-30) mmol/L BUN (9-20) mg/dL Creatinine (0.66-1.25) mg/dL Glucose (74-99) mg/dL Plasma Lactic Acid Zander (0.7-2.0) mmol/L Alkaline Phosphatase (38-126) U/L Albumin (3.5-5.0) g/dL Urine Protein 1+ H (Negative) Urine Glucose (UA) 2+ H (Negative) Urine Blood Large H (Negative) Ur Leukocyte Esterase Large H (Negative) Urine RBC >182 H (0-5) /hpf Urine WBC >182 H (0-5) /hpf Urine WBC Clumps Many H (None) /hpf Urine Bacteria Many H (None) /hpf
[2025-02-19] MEDS: INSULIN LISPRO (HumaLOG) 100 UNIT/ML 10 mL VL SQ SCH (14:49)
[2025-02-19 15:00] LABS: Glucose,Whole Blood 166 mg/dL (70-110)
[2025-02-19] MEDS: TAMSULOSIN 0.4 MG CAP.ER.24H PO SCH (16:18)
[2025-02-19] MEDS: ASPIRIN 81 MG PO SCH (16:18)
[2025-02-19 17:16] LABS: Glucose,Whole Blood 180 mg/dL (70-110)
[2025-02-19] MEDS ORDERED: ACETAMINOPHEN SUPPOSITORY 650 MG SUPP RECTAL PRN (17:58)
[2025-02-19] MEDS: ACETAMINOPHEN TAB 325 MG TAB PO PRN (18:45)
[2025-02-19 20:06] LABS: Glucose,Whole Blood 230 mg/dL (70-110)
[2025-02-19] MEDS: HEPARIN SODIUM,PORCINE 5,000 UNIT/ML 1 ML VIAL SQ SCH (20:25)
[2025-02-19] MEDS: MEROPENEM 1 GM in SODIUM CHLORIDE 0.9% 100 ML IVPB SCH (22:29)
[2025-02-20 07:23] LABS: Glucose,Whole Blood 143 mg/dL (70-110)
[2025-02-20 08:21] LABS: HCT 36.2 % (39.6-50.0); HGB 11.4 g/dL (13.0-17.0); MCH 31.6 pg (27.0-32.0); MCHC 31.5 g/dL (32.0-37.0); MCV 100.3 FL (80.0-97.0); Mean Platelet Volume 10.2 FL (9.5-12.2); NRBC Per 100 WBC 0 X 10*3/uL (0.00-0.01); Platelet Count 270 X 10*3/uL (140-440); RBC 3.61 X 10*6/uL (4.40-5.60); RDW 13.4 % (11.5-14.5); WBC 14.66 X 10*3/uL (4.50-10.00)
[2025-02-20] MEDS: FAMOTIDINE 20 MG TAB PO SCH (08:34)
[2025-02-20] MEDS: ESCITALOPRAM 10 MG TAB PO SCH (08:35)
--- NOTE | 2025-02-20 09:02 | P.CONS ---
History of Present Illness - Reason for Consult Consult date: 02/19/25 Sepsis Requesting physician: Brian Rider - Chief Complaint Fever and altered mental status x 1 day - History of Present Illness Patient is a 89-year-old male with a past medical history significant for Coronary Artery Disease (CAD), Cancer, CVA/TIA, Diabetes Mellitus, Hyperlipidemia, Hypertension, Myocardial Infarction (OR), Prostate Disorder, Sleep Apnea/CPAP/BIPAP, Vascular Disorder, patient has been brought into the hospital from the local shelter for evaluation of fever as well as change in his mental status patient also noticed to be hypotensive and tachycardic with the patient was brought into the hospital patient did have decreased appetite but no clear history of any nausea or vomiting or choking on the food and no diarrhea has been reported patient on presentation to the hospital did have a low-grade fever 100 F patient was not tachycardic hypotensive mildly hypoxic currently on a 2 L nasal cannula oxygen patient did have white count 21.83 with a left shift BUN and creatinine has been elevated lactic acid was elevated liver enzymes are normal urine has been positive concerning for UTI patient was started on Rocephin infectious disease was consulted for further management of antibiotic therapy patient did have a chest x-ray concerning for left retrocardiac opacity which may represent atelectasis or pneumonia most information has been obtained from review of the chart as the patient is currently lethargic could not provide any history Review of Systems Positive points has been mentioned in HPI complete review could not be obtained because of his underlying mental status Past Medical History Past Medical History: Coronary Artery Disease (CAD), Cancer, CVA/TIA, Diabetes Mellitus, Hyperlipidemia, Hypertension, Myocardial Infarction (OR), Prostate Disorder, Sleep Apnea/CPAP/BIPAP, Vascular Disorder Additional Past Medical History / Comment(s): TIA in 2014, MICHAEL without device, CKD stage III, chronic low back pain, migraines in past, vertigo, balance issues, falls, BPH, benign colon polyp, diverticular disease, vascular disease with surgery-AAA repair and R leg bypass, skin cancer with removal, superficial bladder cancer Last Myocardial Infarction Date:: 04/17/17 History of Any Multi-Drug Resistant Organisms: ESBL Year Discovered:: 01/19/24 MDRO Source:: Urine Past Surgical History: Adenoidectomy, Heart Catheterization With Stent, Tonsillectomy Additional Past Surgical History / Comment(s): 12/07/18 endovascular repair/stent graft infra renal aorta, R leg bypass surgery after AAA repair at [facility], colonoscopy/polypectomy, basal cell cancer removed from forehead, bilateral cataract removals/lens implants, cystoscopy -biopsy for cancer Past Anesthesia/Blood Transfusion Reactions: No Reported Reaction Additional Past Anesthesia/Blood Transfusion Reaction / Comm: . Date of Last Stent Placement:: 03/2017 Past Psychological History: Anxiety, Depression Smoking Status: Former smoker Past Alcohol Use History: None Reported Past Drug Use History: None Reported - Past Family History Brother(s) Family Medical History: No Reported History Sister(s) Family Medical History: No Reported History Son(s) Family Medical History: No Reported History Father Family Medical History: Diabetes Mellitus, Myocardial Infarction (OR), Vascular Disorder Additional Family Medical History / Comment(s): Father of a OR at the age of 76 or 77yrs. He was an alcoholic. Mother Family Medical History: Deep Vein Thrombosis (DVT), Pulmonary Embolus Additional Family Medical History / Comment(s): Mother at 42 yrs of age of "blood clot" in the lung and it went to the heart. Medications and Allergies Home Medications Medication Instructions Recorded Confirmed Type Tamsulosin HCl [Flomax] 0.4 mg PO BID@0800,1700 11/18/21 02/19/25 History Acetaminophen/Diphenhydramine 2 tab PO HS@2100 12/11/23 02/19/25 History [Tylenol PM 500-25mg] Dextran/Hypromellose/Glycerin 2 drop BOTH EYES BID@0800,1700 12/11/23 02/19/25 History [Genteal Tears 0.1%-0.2%-0.3%] Escitalopram [Lexapro] 10 mg PO DAILY@0800 12/11/23 02/19/25 History Famotidine [Pepcid] 40 mg PO DAILY@0800 12/11/23 02/19/25 History L.acidoph,Paracasei, B.lactis 1 cap PO BID@0800,1700 12/11/23 02/19/25 History [Probiotic] Magnesium Hydroxide [Milk of 7,200 mg PO Q48H PRN 12/11/23 02/19/25 History Magnesia Concentrate] Na Phos,M-B/Na Phos,Di-Ba [Fleet 133 ml RECTAL DAILY PRN 12/11/23 02/19/25 History Adult] Ondansetron [Zofran] 4 mg PO Q6H PRN 12/11/23 02/19/25 History bisacodyL [Dulcolax] 10 mg RECTAL DAILY PRN 12/11/23 02/19/25 History Aspirin 81 mg PO DAILY@0800 01/05/24 02/19/25 History Glucerna Shake 120 ml PO DAILY@0800 01/05/24 02/19/25 History INSULIN ASPART (NovoLOG) [NovoLOG See Protocol SQ 01/05/24 02/19/25 History (formulary)] ACHS@07,11,1630,2130 Acetaminophen Tab [Tylenol] 650 mg PO Q4H PRN 11/23/24 02/19/25 History Cholestyramine (with Sugar) 4 gm PO BID PRN 02/19/25 02/19/25 History [Questran Packet] HYDROcodone/APAP 5-325MG [[place] 1 tab PO Q4HR PRN 02/19/25 02/19/25 History 5-325] Hyoscyamine Sulfate [Levsin] 0.125 mg PO Q4H PRN 02/19/25 02/19/25 History LORazepam [Ativan] 0.5 mg PO Q6H PRN 02/19/25 02/19/25 History MORPHINE ORAL ZAY 2mg/mL [Morphine 1 mg PO Q3H PRN 02/19/25 02/19/25 History Oral Soln 2 MG/ML] Sennosides [Senokot] 8.6 mg PO BID PRN 02/19/25 02/19/25 History Allergies Allergy/AdvReac Type Severity Reaction Status Date / Time No Known Allergies Allergy Verified 02/19/25 07:08 Physical Exam Vitals: Vital Signs Temp Pulse Resp BP Pulse Ox 02/19/25 10:40 98.0 F 70 22 101/59 98 02/19/25 06:23 98.7 F 62 16 91/56 95 02/19/25 05:22 92 16 101/59 94 L 02/19/25 03:13 100 18 122/69 97 02/19/25 02:17 98.2 F 104 H 96 02/19/25 00:56 100.0 F H 107 H 16 120/56 95 02/18/25 21:43 98.6 F 79 18 115/70 100 Intake and Output 02/18/25 02/19/25 02/19/25 22:59 06:59 14:59 Other: Voiding Method Indwelling Catheter Weight 68.039 kg GENERAL DESCRIPTION: Elderly male lying in bed, no distress. No tachypnea or accessory muscle of respiration use. HEENT: Shows Pallor , no scleral icterus. Oral mucous membrane is dry. NECK: Trachea central, no thyromegaly. LUNGS: Unlabored breathing. Creased breath sound at the base HEART: S1, S2, regular rate and rhythm. No loud murmur ABDOMEN: Soft, no tenderness , EXTREMITIES: No edema of feet. SKIN: No rash, no masses palpable. NEUROLOGICAL: The patient is sleepy less responsive orientation could not be determined Results CBC & Chem 7: 02/20/25 03:49 02/18/25 23:24 Labs: Abnormal Lab Results - Last 24 Hours (Table) 02/18/25 02/18/25 02/18/25 Range/Units 22:29 23:24 23:24 WBC 21.83 H (4.50-10.00) 10*3/uL RBC 3.54 L (4.40-5.60) 10*6/uL Hgb 11.5 L (13.0-17.0) g/dL Hct 34.4 L (39.6-50.0) % MCV 97.2 H (80.0-97.0) fL MCH 32.5 H (27.0-32.0) pg MPV 9.3 L (9.5-12.2) fL Immature Gran # 0.13 H (0.00-0.04) 10*3/uL Neutrophils # 18.20 H (1.80-7.70) 10*3/uL Monocytes # 1.81 H (0.20-1.00) 10*3/uL Eosinophils # 0.01 L (0.04-0.35) 10*3/uL APTT (22.0-30.0) sec Sodium 131 L (137-145) mmol/L Carbon Dioxide 21 L (22-30) mmol/L BUN 37 H (9-20) mg/dL Creatinine 2.64 H (0.66-1.25) mg/dL Glucose 260 H (74-99) mg/dL Plasma Lactic Acid Zander 2.5 H* (0.7-2.0) mmol/L Alkaline Phosphatase 127 H (38-126) U/L Albumin 2.8 L (3.5-5.0) g/dL Urine Protein (Negative) Urine Glucose (UA) (Negative) Urine Blood (Negative) Ur Leukocyte Esterase (Negative) Urine RBC (0-5) /hpf Urine WBC (0-5) /hpf Urine WBC Clumps (None) /hpf Urine Bacteria (None) /hpf 02/18/25 02/19/25 Range/Units 23:24 00:10 WBC (4.50-10.00) 10*3/uL RBC (4.40-5.60) 10*6/uL Hgb (13.0-17.0) g/dL Hct (39.6-50.0) % MCV (80.0-97.0) fL MCH (27.0-32.0) pg MPV (9.5-12.2) fL Immature Gran # (0.00-0.04) 10*3/uL Neutrophils # (1.80-7.70) 10*3/uL Monocytes # (0.20-1.00) 10*3/uL Eosinophils # (0.04-0.35) 10*3/uL APTT 20.3 L (22.0-30.0) sec Sodium (137-145) mmol/L Carbon Dioxide (22-30) mmol/L BUN (9-20) mg/dL Creatinine (0.66-1.25) mg/dL Glucose (74-99) mg/dL Plasma Lactic Acid Zander (0.7-2.0) mmol/L Alkaline Phosphatase (38-126) U/L Albumin (3.5-5.0) g/dL Urine Protein 1+ H (Negative) Urine Glucose (UA) 2+ H (Negative) Urine Blood Large H (Negative) Ur Leukocyte Esterase Large H (Negative) Urine RBC >182 H (0-5) /hpf Urine WBC >182 H (0-5) /hpf Urine WBC Clumps Many H (None) /hpf Urine Bacteria Many H (None) /hpf Assessment and Plan (1) CELE (acute kidney injury) Current Visit: No Status: Acute Code(s): N17.9 - ACUTE KIDNEY FAILURE, UNSPECIFIED SNOMED Code(s): 22707632 (2) Sepsis Current Visit: No Status: Acute Code(s): A41.9 - SEPSIS, UNSPECIFIED ORGANISM SNOMED Code(s): 60466185 (3) UTI (urinary tract infection) Current Visit: No Status: Acute Code(s): N39.0 - URINARY TRACT INFECTION, SITE NOT SPECIFIED SNOMED Code(s): 26204852 Plan: 1patient presented hospital with sepsis in this patient who did have fever tachycardia elevated white count meeting criteria for SIRS source is likely urinary in this patient did have significantly positive UA patient did have some abnormality on the chest x-ray underlying pneumonia not entirely excluded as at this point patient unable to provide any history as well as respiratory symptoms 2-patient did have elevated creatinine high risk of nephrotoxicity and will need to rule out any obstructive uropathy 3-patient will be treated with Rocephin while waiting for the culture to finalize We will follow on clinical condition and cultures to further adjust medication if needed Thank you for this consultation we will follow the patient along with you Dictation was produced using [employer] dictation software. please excuse any grammatical, word or spelling errors. Time with Patient: Greater than 30
[2025-02-20 09:29] LABS: BUN/Creat Ratio 15.87 Ratio (12.00-20.00); Blood Urea Nitrogen 36.5 mg/dL (9.0-27.0); Calcium 8.8 mg/dL (8.7-10.3); Carbon Dioxide 19.1 mmol/L (21.6-31.8); Chloride 104 mmol/L (96-109); Glucose 138 mg/dL (70-110); Magnesium 1.7 mg/dL (1.5-2.4); Potassium 4.7 mmol/L (3.5-5.5); Sodium 135 mmol/L (135-145)
--- NOTE | 2025-02-20 10:43 | US ---
EXAMINATION TYPE: US kidneys/renal and bladder DATE OF EXAM: 02/20/2025 COMPARISON: 12/13/2024 CLINICAL INDICATION: Male, 89 years old with history of uti and bacteremia; UTI TECHNIQUE: Grayscale imaging of the bilateral kidneys and urinary bladder: FINDINGS: EXAM MEASUREMENTS: Right Kidney: 11.5 x 5.7 x 6.2 cm Left Kidney: 6.4 x 4.1 x 3.4 cm Right Kidney: [id number] hydro as visualized on prior Left Kidney: Atrophic with mild to moderate hydro as visualized on prior Bladder: Limited assessment as the patient has cath in place IMPRESSION: Atrophic left kidney redemonstrated. Ongoing mild to moderate bilateral hydronephrosis. Correlate as to etiology. Suboptimal assessment of the bladder due to indwelling catheter. [facility], , 02/20/2025 10:40 AM
[2025-02-20 12:33] LABS: Glucose,Whole Blood 224 mg/dL (70-110)
--- NOTE | 2025-02-20 13:23 | P.PN ---
Subjective Progress Note Date: 02/20/25 89-year-old male was transferred from residential for urinary tract infection urine significantly abnormal patient had a hydronephrosis pyelonephritis in the past patient urine showed large leukocyte Estrace elevated white blood cell count and RBC. Patient was on hospice. I had lengthy discussion with the family regarding hospice goals of care and not treating the patient but patient's family at this point patient to be treated and they prefer not to continue hospice anymore at this time. I am unable to get much of the history from the patient patient is bit lethargic arousable did not provide me any history patient had high-grade fever and leukocytosis of 21,000. Chest x-ray did show some retrocardiac opacities concerning for aspiration pneumonia versus atelectasis. 02/20/2025. Patient seen and examined at bedside. He feels much improved since yesterday with no complaints of pain. Patient continues to be febrile temperature 100.1 F. Today's labs WBC 14.6, hemoglobin 11.4, MCV 100.3, bicarb 19, BUN 36.5, creatinine 2.3. blood culture findings of Klebsiella pneumoniae +CTX-M and patient subsequently started on meropenem. REVIEW OF SYSTEMS: All other systems are negative except those mentioned in the HPI PHYSICAL EXAMINATION: Vitals reviewed. GENERAL: Arousable lethargic unable to get any history from the patient thin built HEENT: Pupils are round and equally reacting to light. EOMI. No scleral icterus. No conjunctival pallor. Normocephalic, atraumatic. No pharyngeal erythema. No thyromegaly. CARDIOVASCULAR: S1 and S2 present. No murmurs, rubs, or gallops. PULMONARY: Chest is clear to auscultation, no wheezing or crackles. ABDOMEN: Soft, nontender, nondistended, normoactive bowel sounds. No palpable organomegaly. MUSCULOSKELETAL: No joint swelling or deformity. EXTREMITIES: No cyanosis, clubbing, or pedal edema. NEUROLOGICAL: As mentioned above SKIN: No rashes. Assessment and plan - Severe sepsis secondary to urinary tract infection patient will be started on IV antibiotics and IV fluids as per the family's request Bacteremia with Klebsiella pneumoniacontinue IV antibiotics, ID consulted - Chronic kidney disease stage IV baseline creatinine around 2.1 present creatinine is around 2.64 may have acute renal failure from acute tubular necrosis from infection IV fluids there is lactated Ringer's as mentioned above - History of coronary disease patient will be started on aspirin 81 mg , patient is not on any medications at this time for coronary disease because of his hospice status and that this hospitalization - Type 2 diabetes mellitus patient was started on sliding scale insulin - Benign prostatic hypertrophy - Depression for which patient will be resumed on his medications DVT prophylaxis: Subcutaneous heparin Dr. Acevedo seen patient with resident, present during exam, and agreed with findings. Objective - Vital Signs Vital signs: Vital Signs Temp 100.1 F H 02/20/25 07:36 Pulse 98 02/20/25 07:36 Resp 16 02/20/25 07:36 BP 121/73 02/20/25 07:36 Pulse Ox 98 02/20/25 07:36 FiO2 Intake & Output 02/19/25 02/20/25 02/20/25 18:59 06:59 18:59 Output Total 300 400 Balance -300 -400 Weight 68.039 kg Output: Urine 300 400 Other: Voiding Method Indwelling Catheter Indwelling Catheter # Bowel Movements 1 1 - Labs CBC & Chem 7: 02/20/25 03:49 02/20/25 03:49 Labs: Abnormal Lab Results - Last 24 Hours (Table) 02/19/25 02/19/25 02/19/25 Range/Units 14:57 17:11 20:05 WBC (4.50-10.00) X 10*3/uL RBC (4.40-5.60) X 10*6/uL Hgb (13.0-17.0) g/dL Hct (39.6-50.0) % MCV (80.0-97.0) FL MCHC (32.0-37.0) g/dL POC Glucose (mg/dL) 166 H 180 H 230 H (70-110) mg/dL 02/20/25 02/20/25 Range/Units 03:49 07:12 WBC 14.66 H (4.50-10.00) X 10*3/uL RBC 3.61 L (4.40-5.60) X 10*6/uL Hgb 11.4 L (13.0-17.0) g/dL Hct 36.2 L (39.6-50.0) % MCV 100.3 H (80.0-97.0) FL MCHC 31.5 L (32.0-37.0) g/dL POC Glucose (mg/dL) 143 H (70-110) mg/dL Microbiology - Last 24 Hours (Table) 02/18/25 22:29 Blood Culture Gram Stain - Preliminary Blood Blood Culture - Preliminary Molecular ID
[2025-02-20 17:16] LABS: Glucose,Whole Blood 154 mg/dL (70-110)
[2025-02-20 18:11] VITALS: BMI 21.5
[2025-02-20 20:39] LABS: Glucose,Whole Blood 147 mg/dL (70-110)
[2025-02-21 06:49] LABS: Glucose,Whole Blood 121 mg/dL (70-110)
[2025-02-21 08:25] LABS: HCT 34.7 % (39.6-50.0); HGB 10.9 g/dL (13.0-17.0); MCH 31.3 pg (27.0-32.0); MCHC 31.4 g/dL (32.0-37.0); MCV 99.7 FL (80.0-97.0); Mean Platelet Volume 9.8 FL (9.5-12.2); NRBC Per 100 WBC 0 X 10*3/uL (0.00-0.01); Platelet Count 262 X 10*3/uL (140-440); RBC 3.48 X 10*6/uL (4.40-5.60); RDW 13.2 % (11.5-14.5); WBC 9.22 X 10*3/uL (4.50-10.00)
[2025-02-21 10:35] LABS: Magnesium 1.6 mg/dL (1.5-2.4)
[2025-02-21 10:54] LABS: BUN/Creat Ratio 14.86 Ratio (12.00-20.00); Blood Urea Nitrogen 32.7 mg/dL (9.0-27.0); Calcium 8.5 mg/dL (8.7-10.3); Carbon Dioxide 20.1 mmol/L (21.6-31.8); Chloride 105 mmol/L (96-109); Glucose 130 mg/dL (70-110); Potassium 5.3 mmol/L (3.5-5.5); Sodium 136 mmol/L (135-145)
[2025-02-21 11:55] LABS: Glucose,Whole Blood 196 mg/dL (70-110)
--- NOTE | 2025-02-21 13:27 | P.PN ---
Subjective Progress Note Date: 02/20/25 Principal diagnosis: Reason for follow-up is E. coli Klebsiella UTI and bacteremia Patient is a 89-year-old male with a past medical history significant for Coronary Artery Disease (CAD), Cancer, CVA/TIA, Diabetes Mellitus, Hyperlipidemia, Hypertension, Myocardial Infarction ([place]), Prostate Disorder, Sleep Apnea/CPAP/BIPAP, Vascular Disorder, patient has been brought into the hospital [facility] the local [facility] for evaluation of fever as well as change in his mental status, patient diagnosed with sepsis secondary urinary source subsequently blood cultures came back positive with ESBL Klebsiella. On today's evaluation that is 02/20/2025,the patient did have resolution of his fever and is afebrile this morning, patient is on 2 L nasal cannula supplemental oxygen and denies any shortness of breath no chest pain or cough.Patient denies having any nausea or vomiting, no abdominal pain and no diarrhea has been reported. Patient white count is down to 14.66 creatinine is 2.3, patient did have a abdominal ultrasound atrophic left kidney mild to moderate bilateral hydronephrosis Objective - Vital Signs Vital signs: Vital Signs Temp 97.8 F 02/20/25 14:00 Pulse 65 02/20/25 14:00 Resp 18 02/20/25 14:00 BP 95/53 02/20/25 14:00 Pulse Ox 98 02/20/25 14:00 FiO2 Intake & Output 02/19/25 02/20/25 02/20/25 18:59 06:59 18:59 Intake Total 240 Output Total 300 400 Balance -300 -400 240 Weight 68.039 kg Intake: Oral 240 Output: Urine 300 400 Other: Voiding Method Indwelling Catheter Indwelling Catheter # Bowel Movements 1 1 - Exam GENERAL DESCRIPTION: An elderly male lying in bed in no distress RESPIRATORY SYSTEM: Unlabored breathing , decreased breath sounds at bases HEART: S1 S2 regular rate and rhythm , ABDOMEN: Soft , no tenderness EXTREMITIES: No edema feet - Labs CBC & Chem 7: 02/21/25 05:46 02/21/25 05:46 Labs: Abnormal Lab Results - Last 24 Hours (Table) 02/19/25 02/20/25 02/20/25 Range/Units 20:05 03:49 03:49 WBC 14.66 H (4.50-10.00) X 10*3/uL RBC 3.61 L (4.40-5.60) X 10*6/uL Hgb 11.4 L (13.0-17.0) g/dL Hct 36.2 L (39.6-50.0) % MCV 100.3 H (80.0-97.0) FL MCHC 31.5 L (32.0-37.0) g/dL Carbon Dioxide 19.1 L (21.6-31.8) mmol/L BUN 36.5 H (9.0-27.0) mg/dL Creatinine 2.3 H (0.6-1.5) mg/dL Est GFR (CKD-EPI) 27 L (>=60) Glucose 138 H (70-110) mg/dL POC Glucose (mg/dL) 230 H (70-110) mg/dL 02/20/25 02/20/25 02/20/25 Range/Units 07:12 12:12 17:11 WBC (4.50-10.00) X 10*3/uL RBC (4.40-5.60) X 10*6/uL Hgb (13.0-17.0) g/dL Hct (39.6-50.0) % MCV (80.0-97.0) FL MCHC (32.0-37.0) g/dL Carbon Dioxide (21.6-31.8) mmol/L BUN (9.0-27.0) mg/dL Creatinine (0.6-1.5) mg/dL Est GFR (CKD-EPI) (>=60) Glucose (70-110) mg/dL POC Glucose (mg/dL) 143 H 224 H 154 H (70-110) mg/dL Microbiology - Last 24 Hours (Table) 02/19/25 00:10 Urine Culture - Preliminary Urine,Catheterized Gram Neg Bacilli 02/18/25 22:29 Blood Culture Gram Stain - Preliminary Blood Blood Culture - Preliminary Klebsiella pneumoniae Molecular ID Assessment and Plan (1) CELE (acute kidney injury) Current Visit: No Status: Acute Code(s): N17.9 - ACUTE KIDNEY FAILURE, UNSPECIFIED SNOMED Code(s): 24885058 (2) Sepsis Current Visit: No Status: Acute Code(s): A41.9 - SEPSIS, UNSPECIFIED ORGANISM SNOMED Code(s): 95888959 (3) UTI (urinary tract infection) Current Visit: No Status: Acute Code(s): N39.0 - URINARY TRACT INFECTION, SITE NOT SPECIFIED SNOMED Code(s): 79242073 (4) Infection due to ESBL-producing Klebsiella pneumoniae Current Visit: Yes Status: Acute Code(s): A49.8 - OTHER BACTERIAL INFECTIONS OF UNSPECIFIED SITE; Z16.12 - EXTENDED SPECTRUM BETA LACTAMASE (ESBL) RESISTANCE SNOMED Code(s): 520479415 (5) Bacteremia Current Visit: Yes Status: Acute Code(s): R78.81 - BACTEREMIA SNOMED Code(s): 0759471 Plan: 1patient presented hospital with sepsis in this patient who did have fever tachycardia elevated white count meeting criteria for SIRS source is likely urinary in this patient did have significantly positive UA likely source of his infection 2-patient did have elevated creatinine ultrasound shows mild to moderate hydronephrosis would benefit from urology evaluation 3-patient blood culture finalized with ESBL Klebsiella antibiotic has been adjusted to meropenem to continue Dictation was produced using [employer] dictation software. please excuse any grammatical, word or spelling errors. Time with Patient: Less than 30
--- NOTE | 2025-02-21 13:28 | P.PN ---
Subjective Progress Note Date: 02/21/25 Principal diagnosis: Reason for follow-up is E. coli Klebsiella UTI and bacteremia Patient is a 89-year-old male with a past medical history significant for Coronary Artery Disease (CAD), Cancer, CVA/TIA, Diabetes Mellitus, Hyperlipidemia, Hypertension, Myocardial Infarction ([place]), Prostate Disorder, Sleep Apnea/CPAP/BIPAP, Vascular Disorder, patient has been brought into the hospital from the local [facility] for evaluation of fever as well as change in his mental status, patient diagnosed with sepsis secondary urinary source subsequently blood cultures came back positive with ESBL Klebsiella. On today's evaluation that is 02/21/2025, Patient is afebrile this morning patient denies having any chest pain shortness of breath or cough, the patient is currently on room air, patient denies any abdominal pain no diarrhea no nausea no vomiting. The patient white count normalized to 9.22 creatinine is 2.2 Objective - Vital Signs Vital signs: Vital Signs Temp 97.6 F 02/21/25 13:20 Pulse 67 02/21/25 13:20 Resp 17 02/21/25 13:20 BP 111/69 02/21/25 13:20 Pulse Ox 94 L 02/21/25 13:20 FiO2 Intake & Output 02/20/25 02/21/25 02/21/25 18:59 06:59 18:59 Intake Total 1600 240 480 Output Total 400 300 Balance 1200 -60 480 Weight 68.039 kg Intake: Intake, IV Titration 1000 Amount Lactated Ringers 1,000 ml 900 @ 75 mls/hr IV .[id number] [facility] Rx#:[id number] Meropenem 1 gm In Sodium 100 Chloride 0.9% 100 ml @ 33 .333 mls/hr IVPB Q12HR [facility] Rx#:[id number] Oral 600 240 480 Output: Urine 400 300 Other: Voiding Method Indwelling Catheter Indwelling Catheter Indwelling Catheter # Bowel Movements 2 2 - Exam GENERAL DESCRIPTION: An elderly male lying in bed in no distress RESPIRATORY SYSTEM: Unlabored breathing , decreased breath sounds at bases HEART: S1 S2 regular rate and rhythm , ABDOMEN: Soft , no tenderness EXTREMITIES: No edema feet - Labs CBC & Chem 7: 02/21/25 05:46 02/21/25 05:46 Labs: Abnormal Lab Results - Last 24 Hours (Table) 02/20/25 02/20/25 02/21/25 Range/Units 17:11 20:38 05:46 RBC 3.48 L (4.40-5.60) X 10*6/uL Hgb 10.9 L (13.0-17.0) g/dL Hct 34.7 L (39.6-50.0) % MCV 99.7 H (80.0-97.0) FL MCHC 31.4 L (32.0-37.0) g/dL Carbon Dioxide (21.6-31.8) mmol/L BUN (9.0-27.0) mg/dL Creatinine (0.6-1.5) mg/dL Est GFR (CKD-EPI) (>=60) Glucose (70-110) mg/dL POC Glucose (mg/dL) 154 H 147 H (70-110) mg/dL Calcium (8.7-10.3) mg/dL 02/21/25 02/21/25 02/21/25 Range/Units 05:46 06:48 11:54 RBC (4.40-5.60) X 10*6/uL Hgb (13.0-17.0) g/dL Hct (39.6-50.0) % MCV (80.0-97.0) FL MCHC (32.0-37.0) g/dL Carbon Dioxide 20.1 L (21.6-31.8) mmol/L BUN 32.7 H (9.0-27.0) mg/dL Creatinine 2.2 H (0.6-1.5) mg/dL Est GFR (CKD-EPI) 28 L (>=60) Glucose 130 H (70-110) mg/dL POC Glucose (mg/dL) 121 H 196 H (70-110) mg/dL Calcium 8.5 L (8.7-10.3) mg/dL Microbiology - Last 24 Hours (Table) 02/18/25 22:29 Blood Culture Gram Stain - Final Blood Blood Culture - Final Klebsiella pneumoniae Molecular ID 02/19/25 00:10 Urine Culture - Preliminary Urine,Catheterized Gram Neg Bacilli Assessment and Plan (1) CELE (acute kidney injury) Current Visit: No Status: Acute Code(s): N17.9 - ACUTE KIDNEY FAILURE, UN SPECIFIED SNOMED Code(s): 79860557 (2) Sepsis Current Visit: No Status: Acute Code(s): A41.9 - SEPSIS, UNSPECIFIED ORGANISM SNOMED Code(s): 84033291 (3) UTI (urinary tract infection) Current Visit: No Status: Acute Code(s): N39.0 - URINARY TRACT INFECTION, SITE NOT SPECIFIED SNOMED Code(s): 06122969 (4) Infection due to ESBL-producing Klebsiella pneumoniae Current Visit: Yes Status: Acute Code(s): A49.8 - OTHER BACTERIAL INFECTIONS OF UNSPECIFIED SITE; Z16.12 - EXTENDED SPECTRUM BETA LACTAMASE (ESBL) RESISTANCE SNOMED Code(s): 381325172 (5) Bacteremia Current Visit: Yes Status: Acute Code(s): R78.81 - BACTEREMIA SNOMED Code(s): 5124000 Plan: 1patient presented hospital with sepsis in this patient who did have fever tachycardia elevated white count meeting criteria for SIRS source is likely urinary in this patient did have significantly positive UA likely source of his infection 2-patient did have elevated creatinine ultrasound shows mild to moderate hydronephrosis would benefit from urology evaluation 3-patient blood culture finalized with ESBL Klebsiella source is likely urinary 4patient is currently being treated with the meropenem will need IV antibiotics on discharge Dictation was produced using [employer] dictation software. please excuse any grammatical, word or spelling errors. Time with Patient: Less than 30
--- NOTE | 2025-02-21 15:29 | P.PN ---
Subjective Progress Note Date: 02/21/25 89-year-old male was transferred from assisted for urinary tract infection urine significantly abnormal patient had a hydronephrosis pyelonephritis in the past patient urine showed large leukocyte Estrace elevated white blood cell count and RBC. Patient was on hospice. I had lengthy discussion with the family regarding hospice goals of care and not treating the patient but patient's family at this point patient to be treated and they prefer not to continue hospice anymore at this time. I am unable to get much of the history from the patient patient is bit lethargic arousable did not provide me any history patient had high-grade fever and leukocytosis of 21,000. Chest x-ray did show some retrocardiac opacities concerning for aspiration pneumonia versus atelectasis. 02/20/2025. Patient seen and examined at bedside. He feels much improved since yesterday with no complaints of pain. Patient continues to be febrile temperature 100.1 F. Today's labs WBC 14.6, hemoglobin 11.4, MCV 100.3, bicarb 19, BUN 36.5, creatinine 2.3. blood culture findings of Klebsiella pneumoniae +CTX-M and patient subsequently started on meropenem. 02/21/2025. Patient seen and examined at bedside. Patient more confused today. He continues treatment with IV antibiotics meropenem. Urine culture with Klebs iella pneumonia ESBL. ID is following patient. Today's labs WBC 9.2, hemoglobin 10.9, sodium 136, potassium 5.3, bicarb 20, BUN 32.7, creatinine 2.2 REVIEW OF SYSTEMS: All other systems are negative except those mentioned in the HPI PHYSICAL EXAMINATION: Vitals reviewed. GENERAL: Arousable lethargic unable to get any history from the patient thin built CARDIOVASCULAR: S1 and S2 present. No murmurs, rubs, or gallops. PULMONARY: Chest is clear to auscultation, no wheezing or crackles. ABDOMEN: Soft, nontender, nondistended, normoactive bowel sounds. No palpable organomegaly. MUSCULOSKELETAL: No joint swelling or deformity. EXTREMITIES: No cyanosis, clubbing, or pedal edema. NEUROLOGICAL: A and O x 1, no focal deficits. SKIN: No rashes. Assessment and plan - Severe sepsis secondary to urinary tract infection patient will be started on IV antibiotics and IV fluids Bacteremia with Klebsiella pneumoniacontinue IV antibiotics, ID following - Chronic kidney disease stage IV baseline creatinine around 2.1 present creatinine improving, may have acute renal failure from acute tubular necrosis from infection, continue IV fluids - History of coronary disease patient will be started on aspirin 81 mg , patient is not on any medications at this time for coronary disease because of his hospice status and that this hospitalization - Type 2 diabetes mellitus patient was started on sliding scale insulin - Benign prostatic hypertrophy - Depression for which patient will be resumed on his medications DVT prophylaxis: Subcutaneous heparin Dr. Acevedo seen patient with resident, present during exam, and agreed with findings. Objective - Vital Signs Vital signs: Vital Signs Temp 97.6 F 02/21/25 13:20 Pulse 67 02/21/25 13:20 Resp 17 02/21/25 13:20 BP 111/69 02/21/25 13:20 Pulse Ox 94 L 02/21/25 13:20 FiO2 Intake & Output 02/20/25 02/21/25 02/21/25 18:59 06:59 18:59 Intake Total 4529 674 0397 Output Total 400 300 800 Balance 1200 -60 1480 Weight 68.039 kg Intake: Intake, IV Titration 1000 Amount Lactated Ringers 1,000 ml 900 @ 75 mls/hr IV .[id number] [facility] Rx#:[id number] Meropenem 1 gm In Sodium 100 Chloride 0.9% 100 ml @ 33 .333 mls/hr IVPB Q12HR [facility] Rx#:[id number] Oral 041 250 5297 Output: Urine 400 300 800 Other: Voiding Method Indwelling Catheter Indwelling Catheter Indwelling Catheter # Bowel Movements 2 2 - Labs CBC & Chem 7: 02/21/25 05:46 02/21/25 05:46 Labs: Abnormal Lab Results - Last 24 Hours (Table) 02/20/25 02/20/25 02/21/25 Range/Units 17:11 20:38 05:46 RBC 3.48 L (4.40-5.60) X 10*6/uL Hgb 10.9 L (13.0-17.0) g/dL Hct 34.7 L (39.6-50.0) % MCV 99.7 H (80.0-97.0) FL MCHC 31.4 L (32.0-37.0) g/dL Carbon Dioxide (21.6-31.8) mmol/L BUN (9.0-27.0) mg/dL Creatinine (0.6-1.5) mg/dL Est GFR (CKD-EPI) (>=60) Glucose (70-110) mg/dL POC Glucose (mg/dL) 154 H 147 H (70-110) mg/dL Calcium (8.7-10.3) mg/dL 02/21/25 02/21/25 02/21/25 Range/Units 05:46 06:48 11:54 RBC (4.40-5.60) X 10*6/uL Hgb (13.0-17.0) g/dL Hct (39.6-50.0) % MCV (80.0-97.0) FL MCHC (32.0-37.0) g/dL Carbon Dioxide 20.1 L (21.6-31.8) mmol/L BUN 32.7 H (9.0-27.0) mg/dL Creatinine 2.2 H (0.6-1.5) mg/dL Est GFR (CKD-EPI) 28 L (>=60) Glucose 130 H (70-110) mg/dL POC Glucose (mg/dL) 121 H 196 H (70-110) mg/dL Calcium 8.5 L (8.7-10.3) mg/dL Microbiology - Last 24 Hours (Table) 02/19/25 00:10 Urine Culture - Final Urine,Catheterized Klebsiella pneumo ESBL MDRO 02/18/25 22:29 Blood Culture Gram Stain - Final Blood Blood Culture - Final Klebsiella pneumoniae Molecular ID
[2025-02-21 16:50] LABS: Glucose,Whole Blood 210 mg/dL (70-110)
[2025-02-21 20:16] LABS: Glucose,Whole Blood 230 mg/dL (70-110)
[2025-02-21] MEDS: QUEtiapine 25 MG TAB PO SCH (21:42)
[2025-02-22 07:07] LABS: Glucose,Whole Blood 179 mg/dL (70-110)
[2025-02-22 10:13] LABS: HCT 31.7 % (39.6-50.0); HGB 10.1 g/dL (13.0-17.0); MCH 30.8 pg (27.0-32.0); MCHC 31.9 g/dL (32.0-37.0); MCV 96.6 FL (80.0-97.0); Mean Platelet Volume 9.3 FL (9.5-12.2); NRBC Per 100 WBC 0 X 10*3/uL (0.00-0.01); Platelet Count 284 X 10*3/uL (140-440); RBC 3.28 X 10*6/uL (4.40-5.60); RDW 13.1 % (11.5-14.5); WBC 8.11 X 10*3/uL (4.50-10.00)
--- NOTE | 2025-02-22 10:51 | P.PN ---
Subjective Progress Note Date: 02/22/25 Principal diagnosis: Reason for follow-up is E. coli Klebsiella UTI and bacteremia Patient is a 89-year-old male with a past medical history significant for Coronary Artery Disease (CAD), Cancer, CVA/TIA, Diabetes Mellitus, Hyperlipidemia, Hypertension, Myocardial Infarction ([place]), Prostate Disorder, Sleep Apnea/CPAP/BIPAP, Vascular Disorder, patient has been brought into the hospital from the local [facility] for evaluation of fever as well as change in his mental status, patient diagnosed with sepsis secondary urinary source subsequently blood cultures came back positive with ESBL Klebsiella. On today's evaluation that is 02/22/2025, Patient is afebrile patient is currently on room air and breathing comfortably no distress the patient was sleepy did not answer any question no vomiting or diarrhea has been reported. Patient white count is 8.11 Objective - Vital Signs Vital signs: Vital Signs Temp 98.5 F 02/22/25 07:38 Pulse 89 02/22/25 07:38 Resp 19 02/22/25 08:34 BP 153/92 02/22/25 07:38 Pulse Ox 96 02/22/25 07:38 FiO2 Intake & Output 02/21/25 02/22/25 02/22/25 18:59 06:59 18:59 Intake Total 2280 Output Total 800 1200 Balance 1480 -1200 Intake: Oral 2280 Output: Urine 800 1200 Other: Voiding Method Indwelling Catheter Indwelling Catheter # Bowel Movements 1 1 - Exam GENERAL DESCRIPTION: An elderly male lying in bed in no distress RESPIRATORY SYSTEM: Unlabored breathing , decreased breath sounds at bases HEART: S1 S2 regular rate and rhythm , ABDOMEN: Soft , no tenderness EXTREMITIES: No edema feet - Labs CBC & Chem 7: 02/22/25 06:34 02/21/25 05:46 Labs: Abnormal Lab Results - Last 24 Hours (Table) 02/21/25 02/21/25 02/21/25 Range/Units 05:46 11:54 16:49 RBC (4.40-5.60) X 10*6/uL Hgb (13.0-17.0) g/dL Hct (39.6-50.0) % MCHC (32.0-37.0) g/dL MPV (9.5-12.2) FL Carbon Dioxide 20.1 L (21.6-31.8) mmol/L BUN 32.7 H (9.0-27.0) mg/dL Creatinine 2.2 H (0.6-1.5) mg/dL Est GFR (CKD-EPI) 28 L (>=60) Glucose 130 H (70-110) mg/dL POC Glucose (mg/dL) 196 H 210 H (70-110) mg/dL Calcium 8.5 L (8.7-10.3) mg/dL 02/21/25 02/22/25 02/22/25 Range/Units 20:13 06:34 07:05 RBC 3.28 L (4.40-5.60) X 10*6/uL Hgb 10.1 L (13.0-17.0) g/dL Hct 31.7 L (39.6-50.0) % MCHC 31.9 L (32.0-37.0) g/dL MPV 9.3 L (9.5-12.2) FL Carbon Dioxide (21.6-31.8) mmol/L BUN (9.0-27.0) mg/dL Creatinine (0.6-1.5) mg/dL Est GFR (CKD-EPI) (>=60) Glucose (70-110) mg/dL POC Glucose (mg/dL) 230 H 179 H (70-110) mg/dL Calcium (8.7-10.3) mg/dL Microbiology - Last 24 Hours (Table) 02/19/25 00:10 Urine Culture - Final Urine,Catheterized Klebsiella pneumo ESBL MDRO 02/18/25 22:29 Blood Culture Gram Stain - Final Blood Blood Culture - Final Klebsiella pneumoniae Molecular ID Assessment and Plan (1) CELE (acute kidney injury) Current Visit: No Status: Acute Code(s): N17.9 - ACUTE KIDNEY FAILURE, UNSPECIFIED SNOMED Code(s): 01916031 (2) Sepsis Current Visit: No Status: Acute Code(s): A41.9 - SEPSIS, UNSPECIFIED ORGANISM SNOMED Code(s): 81066363 (3) UTI (urinary tract infection) Current Visit: No Status: Acute Code(s): N39.0 - URINARY TRACT INFECTION, SITE NOT SPECIFIED SNOMED Code(s): 81331484 (4) Infection due to ESBL-producing Klebsiella pneumoniae Current Visit: Yes Status: Acute Code(s): A49.8 - OTHER BACTERIAL INFECTIONS OF UNSPECIFIED SITE; Z16.12 - EXTENDED SPECTRUM BETA LACTAMASE (ESBL) RESISTANCE SNOMED Code(s): 375291632 (5) Bacteremia Current Visit: Yes Status: Acute Code(s): R78.81 - BACTEREMIA SNOMED Code(s): 0457284 Plan: 1patient presented hospital with sepsis in this patient who did have fever tachycardia elevated white count meeting criteria for SIRS source is likely urinary in this patient did have significantly positive UA likely source of his infection 2-patient did have elevated creatinine ultrasound shows mild to moderate hydronephrosis would benefit from urology evaluation 3-patient blood culture finalized with ESBL Klebsiella source is likely urinary 4patient is currently being treated with the meropenem, plan will be midline and a total of 2-week course of antibiotic which can be transition to Invanz on discharge Dictation was produced using [employer] dictation software. please excuse any grammatical, word or spelling errors. Time with Patient: Less than 30
[2025-02-22 11:42] LABS: Blood Urea Nitrogen 27.6 mg/dL (9.0-27.0); Calcium 8.2 mg/dL (8.7-10.3); Carbon Dioxide 21.5 mmol/L (21.6-31.8); Chloride 106 mmol/L (96-109); Glucose 177 mg/dL (70-110); Sodium 136 mmol/L (135-145)
[2025-02-22 12:17] LABS: Glucose,Whole Blood 194 mg/dL (70-110)
[2025-02-22] MEDS ORDERED: QUEtiapine 25 MG TAB PO PRN (13:10)
--- NOTE | 2025-02-22 13:15 | P.PN ---
Subjective Progress Note Date: 02/22/25 89-year-old male was transferred from senior living for urinary tract infection urine significantly abnormal patient had a hydronephrosis pyelonephritis in the past patient urine showed large leukocyte Estrace elevated white blood cell count and RBC. Patient was on hospice. I had lengthy discussion with the family regarding hospice goals of care and not treating the patient but patient's family at this point patient to be treated and they prefer not to continue hospice anymore at this time. I am unable to get much of the history from the patient patient is bit lethargic arousable did not provide me any history patient had high-grade fever and leukocytosis of 21,000. Chest x-ray did show some retrocardiac opacities concerning for aspiration pneumonia versus atelectasis. 02/20/2025. Patient seen and examined at bedside. He feels much improved since yesterday with no complaints of pain. Patient continues to be febrile temperature 100.1 F. Today's labs WBC 14.6, hemoglobin 11.4, MCV 100.3, bicarb 19, BUN 36.5, creatinine 2.3. blood culture findings of Klebsiella pneumoniae +CTX-M and patient subsequently started on meropenem. 02/21/2025. Patient seen and examined at bedside. Patient more confused today. He continues treatment with IV antibiotics meropenem. Urine culture with Klebs iella pneumonia ESBL. ID is following patient. Today's labs WBC 9.2, hemoglobin 10.9, sodium 136, potassium 5.3, bicarb 20, BUN 32.7, creatinine 2.2 02/22/2025. Patient seen and examined at bedside. Patient sleepy during exam. He continues treatment with IV antibiotics meropenem. Urine culture with Klebsiella pneumonia ESBL. ID is following patient. Today's labs WBC 8.1, hemoglobin 10.1, bicarb 21.5, BUN 27.6 creatinine 2.0. REVIEW OF SYSTEMS: All other systems are negative except those mentioned in the HPI PHYSICAL EXAMINATION: Vitals reviewed. GENERAL: lethargic, thin built CARDIOVASCULAR: S1 and S2 present. No murmurs, rubs, or gallops. PULMONARY: Chest is clear to auscultation, no wheezing or crackles. ABDOMEN: Soft, nontender, nondistended, normoactive bowel sounds. No palpable organomegaly. MUSCULOSKELETAL: No joint swelling or deformity. EXTREMITIES: No cyanosis, clubbing, or pedal edema. NEUROLOGICAL: no focal deficits. SKIN: No rashes. Assessment and plan - Severe sepsis secondary to urinary tract infection patient will be started on IV antibiotics and IV fluids Bacteremia with Klebsiella pneumoniacontinue IV antibiotics, ID following, midline ordered and 2 weeks of total antibiotics which can be transition to Invanz on discharge - CELE with chronic kidney disease stage IV baseline creatinine around 2.1 present creatinine improving, may have acute renal failure from acute tubular necrosis from infection, continue IV fluids - History of coronary disease patient will be started on aspirin 81 mg , patient is not on any medications at this time for coronary disease because of his hospice status and that this hospitalization - Type 2 diabetes mellitus patient was started on sliding scale insulin - Benign prostatic hypertrophy - Depression for which patient will be resumed on his medications DVT prophylaxis: Subcutaneous heparin Dr. Acevedo seen patient with resident, present during exam, and agreed with findings. Objective - Vital Signs Vital signs: Vital Signs Temp 98.5 F 02/22/25 07:38 Pulse 89 02/22/25 07:38 Resp 19 02/22/25 08:34 BP 153/92 02/22/25 07:38 Pulse Ox 96 02/22/25 07:38 FiO2 Intake & Output 02/21/25 02/22/25 02/22/25 18:59 06:59 18:59 Intake Total 2280 Output Total 800 1200 Balance 1480 -1200 Intake: Oral 2280 Output: Urine 800 1200 Other: Voiding Method Indwelling Catheter Indwelling Catheter # Bowel Movements 1 1 - Labs CBC & Chem 7: 02/22/25 06:34 02/22/25 06:34 Labs: Abnormal Lab Results - Last 24 Hours (Table) 02/21/25 02/21/25 02/21/25 Range/Units 05:46 11:54 16:49 Carbon Dioxide 20.1 L (21.6-31.8) mmol/L BUN 32.7 H (9.0-27.0) mg/dL Creatinine 2.2 H (0.6-1.5) mg/dL Est GFR (CKD-EPI) 28 L (>=60) Glucose 130 H (70-110) mg/dL POC Glucose (mg/dL) 196 H 210 H (70-110) mg/dL Calcium 8.5 L (8.7-10.3) mg/dL 02/21/25 02/22/25 Range/Units 20:13 07:05 Carbon Dioxide (21.6-31.8) mmol/L BUN (9.0-27.0) mg/dL Creatinine (0.6-1.5) mg/dL Est GFR (CKD-EPI) (>=60) Glucose (70-110) mg/dL POC Glucose (mg/dL) 230 H 179 H (70-110) mg/dL Calcium (8.7-10.3) mg/dL Microbiology - Last 24 Hours (Table) 02/19/25 00:10 Urine Culture - Final Urine,Catheterized Klebsiella pneumo ESBL MDRO 02/18/25 22:29 Blood Culture Gram Stain - Final Blood Blood Culture - Final Klebsiella pneumoniae Molecular ID
[2025-02-22 17:05] LABS: Glucose,Whole Blood 144 mg/dL (70-110)
[2025-02-22 20:18] LABS: Glucose,Whole Blood 161 mg/dL (70-110)
[2025-02-23 07:38] LABS: Glucose,Whole Blood 130 mg/dL (70-110)
[2025-02-23 09:53] VITALS: TEMP 97.7
[2025-02-23 10:17] LABS: BUN/Creat Ratio 12.71 Ratio (12.00-20.00); Blood Urea Nitrogen 21.6 mg/dL (9.0-27.0); Calcium 8.5 mg/dL (8.7-10.3); Carbon Dioxide 22.5 mmol/L (21.6-31.8); Chloride 104 mmol/L (96-109); Glucose 128 mg/dL (70-110); Potassium 4.3 mmol/L (3.5-5.5); Sodium 137 mmol/L (135-145)
--- NOTE | 2025-02-23 11:32 | P.DS ---
Providers Date of admission: 02/19/25 01:19 Expected date of discharge: 02/23/25 Attending physician: Goyo Crockett Consults: 02/19/25 01:19 Consult Physician Stat Consulting Provider: Nathaniel Hernández Consult Reason/Comments: Sepsis. Do you want consulting provider notified?: Yes Primary care physician: Chinedu Malik [facility] Course: Discharge diagnoses; - Severe sepsis secondary to urinary tract infection Bacteremia with Klebsiella pneumonia - CELE with chronic kidney disease stage IV - History of coronary disease - Type 2 diabetes mellitus - Benign prostatic hypertrophy - Depression Hospital course; 89-year-old male was transferred from shelter for urinary tract infection urine significantly abnormal patient had a hydronephrosis pyelonephritis in the past patient urine showed large leukocyte Estrace elevated white blood cell count and RBC. Patient was on hospice. I had lengthy discussion with the family regarding hospice goals of care and not treating the patient but patient's family at this point patient to be treated and they prefer not to continue hospice anymore at this time. I am unable to get much of the history from the patient patient is bit lethargic arousable did not provide me any history patient had high-grade fever and leukocytosis of 21,000. Chest x-ray did show some retrocardiac opacities concerning for aspiration pneumonia versus atelectasis. During hospital stay patient treated for severe sepsis secondary to bacteremia from UTI with Klebsiella pneumonia. He was seen by infectious disease and treated with meropenem. Patient discharged to [facility] in stable condition. He will continue IV Invanz for 2 weeks via midline. He will need to follow-up with his PCP. PHYSICAL EXAMINATION: Vitals reviewed. GENERAL: lethargic, thin built CARDIOVASCULAR: S1 and S2 present. No murmurs, rubs, or gallops. PULMONARY: Chest is clear to auscultation, no wheezing or crackles. ABDOMEN: Soft, nontender, nondistended, normoactive bowel sounds. No palpable organomegaly. MUSCULOSKELETAL: No joint swelling or deformity. EXTREMITIES: No cyanosis, clubbing, or pedal edema. NEUROLOGICAL: no focal deficits. SKIN: No rashes. Dr. Acevedo seen patient with resident, present during exam, and agreed with findings. Dictation was produced using [employer] dictation software. please excuse any grammatical, word or spelling errors. Plan - Discharge Summary New Discharge Prescriptions: New Ertapenem [INVanz] 1 gm IVPB Q24H #14 each Continue Tamsulosin HCl [Flomax] 0.4 mg PO BID@0800,1700 L.acidoph,Paracasei, B.lactis [Probiotic] 1 cap PO BID@0800,1700 Magnesium Hydroxide [Milk of Magnesia Concentrate] 7,200 mg PO Q48H PRN PRN Reason: Constipation Dextran/Hypromellose/Glycerin [Genteal Tears 0.1%-0.2%-0.3%] 2 drop BOTH EYES BID@0800,1700 Na Phos,M-B/Na Phos,Di-Ba [Fleet Adult] 133 ml RECTAL DAILY PRN PRN Reason: Constipation Escitalopram [Lexapro] 10 mg PO DAILY@0800 bisacodyL [Dulcolax] 10 mg RECTAL DAILY PRN PRN Reason: Constipation Acetaminophen/Diphenhydramine [Tylenol PM 500-25mg] 2 tab PO HS@2100 Acetaminophen Tab [Tylenol] 650 mg PO Q4H PRN PRN Reason: General Discomfort MORPHINE ORAL ZAY 2mg/mL [Morphine Oral Soln 2 MG/ML] 1 mg PO Q3H PRN PRN Reason: SEVERE PAIN/SOB Cholestyramine (with Sugar) [Questran Packet] 4 gm PO BID PRN PRN Reason: C-DIFF/LOOSE STOOLS LORazepam [Ativan] 0.5 mg PO Q6H PRN PRN Reason: Anxiety Hyoscyamine Sulfate [Levsin] 0.125 mg PO Q4H PRN PRN Reason: INCREASED SECRETION Ondansetron [Zofran] 4 mg PO Q6H PRN PRN Reason: Nausea And Vomiting Famotidine [Pepcid] 40 mg PO DAILY@0800 INSULIN ASPART (NovoLOG) [NovoLOG (formulary)] See Protocol SQ ACHS@07,11,1630,2130 Glucerna Shake 120 ml PO DAILY@0800 Aspirin 81 mg PO DAILY@0800 Sennosides [Senokot] 8.6 mg PO BID PRN PRN Reason: Constipation HYDROcodone/APAP 5-325MG [[place] 5-325] 1 tab PO Q4HR PRN PRN Reason: Moderate Pain Discharge Medication List Tamsulosin HCl [Flomax] 0.4 mg PO BID@0800,1700 11/18/21 [History] Acetaminophen/Diphenhydramine [Tylenol PM 500-25mg] 2 tab PO HS@2100 12/11/23 [History] Dextran/Hypromellose/Glycerin [Genteal Tears 0.1%-0.2%-0.3%] 2 drop BOTH EYES BID@0800,1700 12/11/23 [History] Escitalopram [Lexapro] 10 mg PO DAILY@0812/11/23 [History] Famotidine [Pepcid] 40 mg PO DAILY@0812/11/23 [History] L.acidoph,Paracasei, B.lactis [Probiotic] 1 cap PO BID@0800,1700 12/11/23 [History] Magnesium Hydroxide [Milk of Magnesia Concentrate] 7,200 mg PO Q48H PRN 12/11/23 [History] Na Phos,M-B/Na Phos,Di-Ba [Fleet Adult] 133 ml RECTAL DAILY PRN 12/11/23 [History] Ondansetron [Zofran] 4 mg PO Q6H PRN 12/11/23 [History] bisacodyL [Dulcolax] 10 mg RECTAL DAILY PRN 12/11/23 [History] Aspirin 81 mg PO DAILY@0801/05/24 [History] Glucerna Shake 120 ml PO DAILY@0801/05/24 [History] INSULIN ASPART (NovoLOG) [NovoLOG (formulary)] See Protocol SQ ACHS@07,11,1630,2130 01/05/24 [History] Acetaminophen Tab [Tylenol] 650 mg PO Q4H PRN 11/23/24 [History] Cholestyramine (with Sugar) [Questran Packet] 4 gm PO BID PRN 02/19/25 [History] HYDROcodone/APAP 5-325MG [[place] 5-325] 1 tab PO Q4HR PRN 02/19/25 [History] Hyoscyamine Sulfate [Levsin] 0.125 mg PO Q4H PRN 02/19/25 [History] LORazepam [Ativan] 0.5 mg PO Q6H PRN 02/19/25 [History] MORPHINE ORAL ZAY 2mg/mL [Morphine Oral Soln 2 MG/ML] 1 mg PO Q3H PRN 02/19/25 [History] Sennosides [Senokot] 8.6 mg PO BID PRN 02/19/25 [History] Ertapenem [INVanz] 1 gm IVPB Q24H #14 each 02/23/25 [Rx] Follow up Appointment(s)/Referral(s): Chinedu Gan MD [Primary Care Provider] - 1-2 days Activity/Diet/Wound Care/Special Instructions: Patient discharged to home [place] with midline and will need 2 weeks of IV Invanz 1 g daily on discharge. Follow-up with PCP. Discharge Disposition: TRANSFER TO SNF/ECF
[2025-02-23 12:16] LABS: Glucose,Whole Blood 224 mg/dL (70-110)
[2025-02-23 12:58] VITALS: BP 136/84; PULSE 69; RESP 18
--- NOTE | 2025-02-25 22:05 | P.PN ---
Subjective Progress Note Date: 02/23/25 Principal diagnosis: Reason for follow-up is E. coli Klebsiella UTI and bacteremia Patient is a 89-year-old male with a past medical history significant for Coronary Artery Disease (CAD), Cancer, CVA/TIA, Diabetes Mellitus, Hyperlipidemia, Hypertension, Myocardial Infarction ([place]), Prostate Disorder, Sleep Apnea/CPAP/BIPAP, Vascular Disorder, patient has been brought into the hospital from the local senior care for evaluation of fever as well as change in his mental status, patient diagnosed with sepsis secondary urinary source subsequently blood cultures came back positive with ESBL Klebsiella. On today's evaluation that is 02/23/2025, patient has been afebrile, patient is breathing comfortably and is currently on room air, patient denies having any chest pain and cough, patient denies nausea vomiting or diarrhea however has been complaining of generalized not feeling well today. The patient did have a creatinine 1.7 blood and urine with ESBL Klebsiella Objective - Vital Signs Vital signs: Vital Signs Temp 98 F 02/23/25 01:41 Pulse 105 H 02/23/25 01:41 Resp 17 02/23/25 01:41 BP 154/74 02/23/25 01:41 Pulse Ox 95 02/23/25 01:41 FiO2 Intake & Output 02/22/25 02/22/25 02/23/25 06:59 18:59 06:59 Output Total 1200 1000 Balance -1200 -1000 Output: Urine 1200 1000 Other: Voiding Method Indwelling Catheter Indwelling Catheter Indwelling Catheter # Voids 1,100 # Bowel Movements 1 - Exam GENERAL DESCRIPTION: An elderly male lying in bed in no distress RESPIRATORY SYSTEM: Unlabored breathing , decreased breath sounds at bases HEART: S1 S2 regular rate and rhythm , ABDOMEN: Soft , no tenderness EXTREMITIES: No edema feet - Labs CBC & Chem 7: 02/22/25 06:34 02/23/25 04:46 Labs: Abnormal Lab Results - Last 24 Hours (Table) 02/22/25 02/22/25 02/22/25 Range/Units 06:34 06:34 07:05 RBC 3.28 L (4.40-5.60) X 10*6/uL Hgb 10.1 L (13.0-17.0) g/dL Hct 31.7 L (39.6-50.0) % MCHC 31.9 L (32.0-37.0) g/dL MPV 9.3 L (9.5-12.2) FL Carbon Dioxide 21.5 L (21.6-31.8) mmol/L BUN 27.6 H (9.0-27.0) mg/dL Creatinine 2.0 H (0.6-1.5) mg/dL Est GFR (CKD-EPI) 32 L (>=60) Glucose 177 H (70-110) mg/dL POC Glucose (mg/dL) 179 H (70-110) mg/dL Calcium 8.2 L (8.7-10.3) mg/dL 02/22/25 02/22/25 02/22/25 Range/Units 12:03 17:03 20:17 RBC (4.40-5.60) X 10*6/uL Hgb (13.0-17.0) g/dL Hct (39.6-50.0) % MCHC (32.0-37.0) g/dL MPV (9.5-12.2) FL Carbon Dioxide (21.6-31.8) mmol/L BUN (9.0-27.0) mg/dL Creatinine (0.6-1.5) mg/dL Est GFR (CKD-EPI) (>=60) Glucose (70-110) mg/dL POC Glucose (mg/dL) 194 H 144 H 161 H (70-110) mg/dL Calcium (8.7-10.3) mg/dL Assessment and Plan (1) CELE (acute kidney injury) Status: Acute Code(s): N17.9 - ACUTE KIDNEY FAILURE, UNSPECIFIED SNOMED Code(s): 00836400 (2) Sepsis Status: Acute Code(s): A41.9 - SEPSIS, UNSPECIFIED ORGANISM SNOMED Code(s): 33779637 (3) UTI (urinary tract infection) Status: Acute Code(s): N39.0 - URINARY TRACT INFECTION, SITE NOT SPECIFIED SNOMED Code(s): 31730818 (4) Infection due to ESBL-producing Klebsiella pneumoniae Status: Acute Code(s): A49.8 - OTHER BACTERIAL INFECTIONS OF UNSPECIFIED SITE; Z16.12 - EXTENDED SPECTRUM BETA LACTAMASE (ESBL) RESISTANCE SNOMED Code(s): 540002339 (5) Bacteremia Status: Acute Code(s): R78.81 - BACTEREMIA SNOMED Code(s): 6379126 Plan: 1patient presented hospital with sepsis in this patient who did have fever tac hycardia elevated white count meeting criteria for SIRS source is likely urinary in this patient did have significantly positive UA likely source of his infection 2-patient did have elevated creatinine ultrasound shows mild to moderate hydronephrosis would benefit from urology evaluation 3-patient blood culture finalized with ESBL Klebsiella source is likely urinary 4patient did have a midline placement antibiotic and was switched over to Invanz 1 g daily to finish a 2-week course of therapy Dictation was produced using [employer] dictation software. please excuse any grammatical, word or spelling errors.
--- NOTE | 2025-02-26 09:34 | CDI ---
Documentation Clarification Form Date: 02/26/2025 09:18:05 AM From: Radha Ureña Admit Date: 02/19/2025 01:19:00 AM Patient Name: Jasmina Butler Visit Number: [id number] Discharge Date: 02/23/2025 02:58:00 PM ATTENTION: The Clinical Documentation Specialists (CDI) and [facility] Coding Staff appreciate your assistance in clarifying documentation. Please respond to the clarification below the line at the bottom and electronically sign. The CDI & [facility] Coding staff will review the response and follow-up if needed. Please note: Queries are made part of the Legal Health Record. If you have any questions, please contact the author of this message via ITS. Dr. Stacie Acevedo May have Acute Renal Failure due to acute tubular necrosis is documented in PN's 02/20 - 02/22 and in the H and P. Additional clarification regarding the acuity of renal failure is requested. History/Risk Factors: CKD, HTN Obstructive uropathy personal history of bladder CA Clinical Indicators: Patients baseline/prior BUN/CR/GFR: Baseline creatinine 2.1 Current BUN/Cr/GFR: 37.4, 2.64, GFR 24 and 21 Treatment: IV fluids Please clarify the acuity of renal failure, if known: [ ] Acute Renal Failure from acute tabular necrosis and infection [ x ] Acute Renal Failure [ ] Other, please specify [ ] Unable to determine MTDD
== END 2025-02-23 14:58 | DRG 872 ==
LOC: EC 21:40 → 3SCARD 02-19 01:19 → 5NMEDONC 02-19 08:19
PROVIDERS: ADMIT Hospitalist; ATTEND Hospitalist
PROC: 05HC33Z Insertion of Infusion Device into Left Basilic Vein, Percutaneous Approach (ICD-10-PCS; principal; 2025-02-22 17:00)
DX: A41.59 Other Gram-negative sepsis (principal); Z51.5 Encounter for palliative care; Z66 Do not resuscitate; N13.6 Pyonephrosis; N18.4 Chronic kidney disease, stage 4 (severe); G20.A1 Parkinson's disease without dyskinesia, without mention of fluctuations; E11.22 Type 2 diabetes mellitus with diabetic chronic kidney disease; F32.A Depression, unspecified; I12.9 Hypertensive chronic kidney disease with stage 1 through stage 4 chronic kidney disease, or unspecified chronic kidney disease; N17.9 Acute kidney failure, unspecified; Z16.12 Extended spectrum beta lactamase (ESBL) resistance; R65.20 Severe sepsis without septic shock; K57.30 Diverticulosis of large intestine without perforation or abscess without bleeding; E78.5 Hyperlipidemia, unspecified; I95.9 Hypotension, unspecified; F41.9 Anxiety disorder, unspecified; I25.10 Atherosclerotic heart disease of native coronary artery without angina pectoris; I25.2 Old myocardial infarction; Z91.81 History of falling; Z86.0100 Personal history of colon polyps, unspecified; G47.33 Obstructive sleep apnea (adult) (pediatric); N40.0 Benign prostatic hyperplasia without lower urinary tract symptoms; Z79.82 Long term (current) use of aspirin; Z79.899 Other long term (current) drug therapy; Z85.828 Personal history of other malignant neoplasm of skin; Z86.73 Personal history of transient ischemic attack (TIA), and cerebral infarction without residual deficits; Z87.440 Personal history of urinary (tract) infections; Z87.891 Personal history of nicotine dependence; Z86.79 Personal history of other diseases of the circulatory system
CPT/HCPCS: 36410; 36415; 71045; 76770; 76937; 80048; 80053; 81001; 83605; 83735; 85025; 85027; 85610; 85730; 87040; 87077; 87086; 87186; 87324; 93005; 96361; 96365; 96375; 99291